=== PATIENT | male | born 1975 | race Caucasian/White ===

== ENCOUNTER 2020-07-04 08:22 | Outpatient (REF) | payer OTHER, SELFPAY ==
[2020-07-04 09:05] LABS: MANUAL DIFF FLAG NO
[2020-07-04 09:08] LABS: Basophils Absolute Auto 0.1 X10*3/uL (0.0-0.2); Basophils Percent Auto 0.8 % (0-2); Eosinophils Absolute Auto 0.3 X10*3/uL (0.0-0.4); Eosinophils Percent Auto 4.1 % (0-4); Hematocrit 46.3 % (42-52); Imm Gran Abs Auto 0.04 X10*3/uL (0.00-0.03); Imm Gran Pct Auto 0.5 % (0.0-0.4); Lymphocytes Absolute Auto 2.1 X10*3/uL (1.2-4.9); Lymphocytes Percent Auto 25.3 % (20-40); Mean Corpuscular HGB Conc 32.4 g/dl (31.0-36.0); Mean Corpuscular Hemoglobin 27.3 pg (27.0-33.0); Mean Corpuscular Volume 84.2 fL (80-98); Mean Platelet Volume 10.4 fL (9.4-12.4); Monocytes Absolute Auto 0.7 X10*3/uL (0.1-1.2); Monocytes Percent Auto 8.9 % (2-11); Neutrophils Absolute Auto 5.1 X10*3/uL (2.0-8.3); Neutrophils Percent Auto 60.4 % (45-73); Platelet Count 245 X10*3/uL (160-400); White Blood Count 8.4 X10*3/uL (4.8-10.8)
[2020-07-04 09:25] LABS: Estimated Average Glucose 100 mg/dL; Hemoglobin A1c % 5.1 %
[2020-07-04 10:08] LABS: Alanine Aminotransferase 64 U/L (0-40); Albumin Level 4.6 g/dL (3.5-5.0); Alkaline Phosphatase 244 U/L (39-117); Aspartate Amino Transferase 36 U/L (5-37); Bilirubin Direct 0.3 mg/dL (0.0-0.5); Bilirubin Total 0.6 mg/dL (0.0-1.0); Gamma Glutamyl Transpeptidase 993 U/L (11-51); Iron 51 mcg/dL (45-160); Lactate Dehydrogenase 184 U/L (118-273); Percent Iron Saturation 15 % (15-50); Total Iron Binding Capacity 339 mcg/dL (228-428); Total Protein 8.1 g/dL (6.5-8.0); Unsaturated Iron Binding 288 ug/dL
[2020-07-04 10:12] LABS: INTERNATIONAL NORM RATIO 3.3 (0.9-1.1); Prothrombin Time 39.6 SEC (10.8-13.0)
[2020-07-05 15:38] LABS: Mitochondrial Antibodies NEGATIVE (NEGATIVE)
[2020-07-09 15:25] LABS: Smooth Muscle Antibody <20
== END 2020-07-04 08:23 | disposition home or self-care (01) ==
LOC: HO.LAB 08:22
PROVIDERS: Internal Medicine Gastroenterology; PCP Internal Medicine; Visit Provider Internal Medicine
DX: R74.8 Abnormal levels of other serum enzymes (principal); D50.8 Other iron deficiency anemias; Z79.01 Long term (current) use of anticoagulants
CPT/HCPCS: 36415; 80076; 82550; 82977; 83036; 83540; 83615; 85025; 85610; 86255; 86256

== ENCOUNTER → 2020-07-09 13:59 | Outpatient (BNVA) | payer OTHER, SELFPAY | PROVIDERS: PCP Internal Medicine; Visit Provider Internal Medicine | DX: Z86.718 Personal history of other venous thrombosis and embolism (principal); Z51.81 Encounter for therapeutic drug level monitoring; Z79.01 Long term (current) use of anticoagulants | CPT/HCPCS: 85610 ==

== ENCOUNTER → 2020-07-15 14:09 | Outpatient (BNVA) | payer OTHER, SELFPAY | PROVIDERS: PCP Internal Medicine; Visit Provider Internal Medicine | DX: Z86.718 Personal history of other venous thrombosis and embolism (principal); Z51.81 Encounter for therapeutic drug level monitoring; Z79.01 Long term (current) use of anticoagulants | CPT/HCPCS: 85610 ==

== ENCOUNTER → 2020-07-23 08:10 | Outpatient (BNVA) | payer OTHER, SELFPAY | PROVIDERS: PCP Internal Medicine; Referring Provider Internal Medicine; Visit Provider Nurse Practitioner Family | DX: Z76.89 Persons encountering health services in other specified circumstances (principal) ==

== ENCOUNTER → 2020-07-29 14:03 | Outpatient (BNVA) | payer OTHER, SELFPAY | PROVIDERS: PCP Internal Medicine; Referring Provider Internal Medicine; Visit Provider Internal Medicine Gastroenterology | DX: K51.90 Ulcerative colitis, unspecified, without complications (principal); D50.9 Iron deficiency anemia, unspecified; K21.9 Gastro-esophageal reflux disease without esophagitis; Z86.718 Personal history of other venous thrombosis and embolism; Z79.01 Long term (current) use of anticoagulants; Z79.899 Other long term (current) drug therapy | CPT/HCPCS: 99212 ==

== ENCOUNTER → 2022-03-26 13:43 | Outpatient (BNV) | payer OTHER, SELFPAY | PROVIDERS: PCP Internal Medicine; Visit Provider Internal Medicine Medical Oncology | DX: Z86.718 Personal history of other venous thrombosis and embolism (principal); Z79.01 Long term (current) use of anticoagulants | CPT/HCPCS: 99213; 99214 ==

== ENCOUNTER 2023-04-06 14:36 | Outpatient (AMB) | payer OTHER, SELFPAY ==
[2023-04-06 14:39] VITALS: BP 112/78; PULSE 82; O2SAT 97; BMI 29.4
--- NOTE | 2023-04-06 14:39 | A.OFFPC_ITS ---
Vital Signs 04/06/23 14:39 Height 5 ft 8 in Weight 193 lb 8 oz BMI 29.4 BP 112/78 Blood Pressure Location Lt brachial Position Sitting Pulse 82 Pulse Source Pulse Oximeter Pulse Oximetry (%) 97 Oxygen Delivery Method Room Air Intake Visit Reasons: insomnia Grocery Manager Required: No Accompanied by: Self / Same As Patient Allergies azathioprine [From IMURAN] Allergy (Unknown, Verified 04/06/23 14:40) PANCREASE SWELLING infliximab [From REMICADE] Allergy (Unknown, Verified 04/06/23 14:40) DIFFICULTY BREATHING mannitol [Reclast] Allergy (Unknown, Verified 04/06/23 14:40) joint pain silver [From TEGADERM AG MESH] Allergy (Unknown, Verified 04/06/23 14:40) BLISTERS water for injection,sterile [Reclast] Allergy (Unknown, Verified 04/06/23 14:40) joint pain zoledronic acid [Reclast] Allergy (Unknown, Verified 04/06/23 14:40) joint pain Medication List - Last Reconciled 04/06/23 by Peyman Dunn MD acetaminophen (Tylenol Extra Strength) 500 mg PO Q6H PRN apixaban (Eliquis) 5 mg PO BID 90 days ascorbate calcium (vitamin C) 500 mg PO DAILY 90 days calcium citrate 250 mg PO DAILY cholecalciferol (vitamin D3) 50 mcg PO DAILY cyanocobalamin (vitamin B-12) 1,000 mcg PO DAILY 90 days ferrous sulfate (Feosol) 325 mg PO DAILY folic acid 1 mg PO DAILY omeprazole 20 mg PO DAILY 90 days propranolol 10 mg PO BID 90 days sertraline 50 mg PO DAILY 90 days tizanidine 4 mg PO BID PRN 90 days zolpidem ER (Ambien CR) 12.5 mg PO BEDTIME PRN Tobacco use date assessed: 04/06/23 Dental Screening Dental Screen Date: 04/06/23 Did you have a dental visit in the last 12 months?: Yes Did you have a dental problem in the last 6 months where you did not have access to dental care?: No Was dental information given to patient?: Patient has dentist HPI insomnia HPI Details 47-year-old overweight male with history of ulcer colitis GERD hypertension history of DVT and recurrent major depression coming in for follow- up. Last seen in October 2022.. Patient follows up with hematology oncology continuing with Seema. Blood work done February 2023. seeing NIRU sparrow. with loosing weight concern on BP and has been getting low BP today low - will d/c. living [place]. having problem with the glasses was in the eye and lasik and wants a second opinion [facility] Medical History Chronic pancreatitis Current use of anticoagulant therapy DVT (deep venous thrombosis) DVT (deep venous thrombosis) Enterocutaneous fistula Gastrointestinal fistula GERD (gastroesophageal reflux disease) History of deep vein thrombosis of lower extremity Hypertension Iron deficiency anemia Irritable bowel syndrome Myeloproliferative disorder Nystagmus, congenital Presence of inferior vena cava filter Small bowel perforation Ulcerative colitis Umbilical hernia Surgical History History of colon resection History of colostomy reversal History of ear surgery History of resection of terminal ileum History of ventral hernia repair Hx of colonoscopy Varicose veins of both lower extremities Family History Father No problems noted. Mother Osteoporosis Heart problem HTN (hypertension) Maternal Aunt Breast cancer Social History Household Members: None Housing: House Are you a primary medicare contact specialist to a significant other at home: No Do you presently have visiting nurse or other home services: Yes Alcohol intake: current Alcohol intake frequency: does not drink Patient Tobacco Use Status: Former Tobacco user e-Cigarette/Vaping Use: Never Used Second Hand Smoke Exposure: No service: No Current occupational status: disabled Cognitive needs: No Hearing needs: No Vision needs: Yes Questionnaire PHQ-9 Over the last 2 weeks, how often have you been bothered by any of the following problems? 1. Little interest or pleasure in doing things: several days 2. Feeling down, depressed, or hopeless: nearly every day 3. Trouble falling or staying asleep, or sleeping too much: nearly every day 4. Feeling tired or having little energy: more than half the days 5. Poor appetite or overeating: not at all 6. Feeling bad about yourself - or that you are a failure or have let yourself or your family down: several days 7. Trouble concentrating on things, such as reading the newspaper or watching television: nearly every day 8. Moving or speaking so slowly that other people could have noticed. Or the opposite - being so fidgety or restless that you have been moving around a lot more than usual: not at all 9. Thoughts that you would be better off or of hurting yourself in some way: not at all Total score: 13 Depression Screening Interpretation: Positive Source: Developed by Drs. Arturo Guerrero, Aubrie Burciaga, Nickolas Aeljo and colleagues, with an educational lacie from [employer]. Thrive Questionnaire Date Thrive assessed: 04/06/23 I am a: Patient What is your living situation today?: I have a steady place to live Within the past 12 months, did the food you bought not last and you didn't have the money to get more?: Never true Within the past 12 months, did you worry whether your food would run out before you got money to buy more?: Never true Do you have trouble paying for medicines?: No Do you have trouble getting transportation to medical appointments?: No Do you have trouble paying your heating and electricity bill?: No Do you have trouble taking care of your child, family member or friend?: No Do you have trouble with day-to-day activities such as bathing, preparing meals, shopping, managing finances, etc.?: No Are you currently unemployed and looking for a job?: No Are you interested in more education?: No Please select the resources that you would like help with: None Currently or been in a relationship where the following occur: no concerns reported AUDIT C Alcohol Use Questionnaire (AUDIT-C) 1. How often do you have a drink containing alcohol?: Never 3. How often do you have six or more drinks on one occasion?: Never Total Score: 0 HO-7 AMB Questionnaire HO-7 Date HO - 7 assessed: 04/06/23 Feeling nervous, anxious, or on edge: 2 = More than half the days Not being able to stop or control worryin = Nearly every day Worrying too much about different things: 1 = Several days Trouble relaxin = More than half the days Being so restless that it is hard to sit still: 1 = Several days Becoming easily annoyed or irritable: 0 = Not at all Feeling afraid as if something awful might happen: 0 = Not at all Total HO-7 score (0-4 normal; 5-9 mild; 10-14 moderate; 15-21 severe): 9 Source: Developed by Drs. Arturo Guerrero, Aubrie Burciaga, Nickolas Alejo and colleagues, with an educational lacie from [employer]. Physical exam (Primary Care) Vital Signs: Last Vital Signs Pulse 82 04/06/23 14:39 BP 112/78 04/06/23 14:39 Pulse Ox 97 04/06/23 14:39 Oxygen Delivery Method Room Air 04/06/23 14:39 BMI result Body Mass Index 29.4 Tobacco/Smoking Status: Tobacco use Status Tobacco use date assessed 04/06/23 04/06/23 14:45 Patient Tobacco Use Status Former Tobacco user 04/06/23 14:45 e-Cigarette/Vaping Use Never Used 04/06/23 14:45 PHQ-9: PHQ-9 Score PHQ-9: Total score 13 04/06/23 14:45 Depression Screening Interpretation: Positive Thrive Assessment: Date of Thrive Assessment Date Thrive assessed 04/06/23 04/06/23 14:45 Currently or been in a relationship where the following occur: no concerns reported Const General: alert; No acute distress Eyes Conjunctivae: conjunctivae normal Resp Auscultation: clear to auscultation bilaterally Cardio Rate: regular rate Rhythm: regular rhythm GI Inspection: Yes normal to inspection Extrem General: Yes normal to inspection and No edema Assessment and Plan Assessment & Plan (1) History of deep vein thrombosis of lower extremity: Comment: IVF filter Code(s): Z86.718 - Personal history of other venous thrombosis and embolism Plan: Patient follows up with hematology oncology and continuing with anticoagulation with Eliquis (2) Hypertension: Code(s): I10 - Essential (primary) hypertension Plan: Continue with blood pressure medication. Decrease salt intake and exercise because the blood pressure has been low will stop the diltiazem and monitor blood pressure (3) GERD (gastroesophageal reflux disease): Code(s): K21.9 - Gastro-esophageal reflux disease without esophagitis Plan: Avoid the foods that causes that usually spicy foods, tomato products, juices, coffee, soda and foods that your sensitive to. After eating do not lie down, allow 3-4 hours before in lie down. And keep the head of bed above 30 degrees to avoid the acid from going up. Continue with omeprazole 20 mg once a day (4) Iron deficiency anemia: Code(s): D50.9 - Iron deficiency anemia, unspecified Plan: Continue with folic acid iron vitamin-C (5) Ulcerative colitis: Comment: Colectomy 08/05/2010 with reversal colostomy November 2010, fistula was abscess drain September 2019, explore lap with colectomy and takedown of the enterocutaneous fistula October 2019 infection and abscess and drained. Since then has had abscess formation requiring CT drainage and recurrent small-bowel o bstruction. Had admission for acute kidney injury and hypernatremia due to hypovolemia having NG tube decompression. August 14 exploratory laparotomy extensively lysis of adhesions and found perforation in the ileum. 80 cm of ileum was resected. Had septic shock and multiple take backs to the operating room for anastomotic breakdown with leaks, waxing and waning blood pressure requirements patient had ileostomy with ventral abdominal closure with mesh. September 15 CT scan showed large fluid collection with lactic acidosis OR for explore laparotomy mesh explantation abdominal washout, drain placement and packing for perforated viscus. September 2021 exploratory laparotomy with lysis of adhesions repair of enterocutaneous fistula ileostomy takedown, hand-sewn anastomosis, diverting loop ileostomy pouch us copy temporary hernia repair with mesh. January 23 ileostomy closure Code(s): K51.90 - Ulcerative colitis, unspecified, without complications Qualifiers: Ulcerative colitis location: ulcerative pancolitis Digestive disease complication type: with fistula Qualified Code(s): K51.013 - Ulcerative (chronic) pancolitis with fistula Plan: Continue to follow-up with gastroenterology. (6) Recurrent major depression: Comment: Living [facility] Code(s): F33.9 - Major depressive disorder, recurrent, unspecified (7) Vision changes: Code(s): H53.9 - Unspecified visual disturbance Plan: Referral to Ophthalmology (8) Ingrown toenail of left foot: Code(s): L60.0 - Ingrowing nail Plan: Referral to podiatry Orders: Orders Vitamin B12 and Folate Today D50.9 - Iron deficiency anemia, unspecified Comprehensive Met. Panel Today I10 - Essential (primary) hypertension Ferritin Today D50.9 - Iron deficiency anemia, unspecified IRON PROFILE Today D50.9 - Iron deficiency anemia, unspecified Lipid Panel Today E78.00 - Pure hypercholesterolemia, unspecified, I10 - Essential (primary) hypertension Free T4 (Free Thyroxine) Today I10 - Essential (primary) hypertension Thyroid Stimulating Hormone Today I10 - Essential (primary) hypertension Complete Blood Count Auto Diff Today D50.9 - Iron deficiency anemia, unspecified Reticulocyte Count Today D50.9 - Iron deficiency anemia, unspecified Referrals Ophthalmology Referral H53.9 - Unspecified visual disturbance Podiatry Referral L60.0 - Ingrowing nail Medications: Changed From sertraline 50 mg PO DAILY 90 days 90 tabs 2RF F33.9 - Major depressive disorder, recurrent, unspecified To sertraline 100 mg PO DAILY 90 tabs 2RF 90 days F33.9 - Major depressive disorder, recurrent, unspecified Discontinued diltiazem HCl ER (DILT-XR) Discontinued Reason: Ancillary Entered New Order 120 mg PO DAILY 90 days 90 caps 0RF Coding Level of Care Code Est Pt Level 4 (62897) Diagnoses History of deep vein thrombosis of lower extremity Z86.718 Hypertension I10 GERD (gastroesophageal reflux disease) K21.9 Iron deficiency anemia D50.9 Ulcerative colitis K51.013 Ulcerative colitis location: ulcerative pancolitis Digestive disease complication type: with fistula Recurrent major depression F33.9 Vision changes H53.9 Ingrown toenail of left foot L60.0
== END 2023-04-06 15:12 | disposition home or self-care (01) ==
PROVIDERS: Visit Provider Internal Medicine
DX: I10 Essential (primary) hypertension (principal); Z86.718 Personal history of other venous thrombosis and embolism; K21.9 Gastro-esophageal reflux disease without esophagitis; K51.013 Ulcerative (chronic) pancolitis with fistula; F33.9 Major depressive disorder, recurrent, unspecified; D50.9 Iron deficiency anemia, unspecified; H53.9 Unspecified visual disturbance; L60.0 Ingrowing nail
CPT/HCPCS: 99214

== ENCOUNTER 2023-04-27 12:06 | Outpatient (REF) | payer OTHER, SELFPAY ==
[2023-04-27 12:17] LABS: MANUAL DIFF FLAG NO
[2023-04-27 12:44] LABS: Basophils Absolute Auto 0.1 X10*3/uL (0.0-0.2); Eosinophils Absolute Auto 0.3 X10*3/uL (0.0-0.4); Eosinophils Percent Auto 4.5 % (0-4); Hematocrit 49.7 % (42.0-52.0); Hemoglobin 16.5 g/dl (14.0-18.0); Imm Gran Abs Auto 0.02 X10*3/uL (0.00-0.03); Imm Gran Pct Auto 0.3 % (0.0-0.4); Lymphocytes Absolute Auto 2.5 X10*3/uL (1.2-4.9); Lymphocytes Percent Auto 34.5 % (20-40); Mean Corpuscular HGB Conc 33.2 g/dl (31.0-36.0); Mean Corpuscular Hemoglobin 31.5 pg (27.0-33.0); Mean Platelet Volume 10.9 fL (9.4-12.4); Monocytes Absolute Auto 0.5 X10*3/uL (0.1-1.2); Monocytes Percent Auto 7.4 % (2-11); Neutrophils Absolute Auto 3.7 x10*3/uL (2.0-8.3); Neutrophils Percent Auto 52.3 % (45-73); Platelet Count 239 X10*3/uL (160-400); Red Blood Count 5.23 X10*6/uL (4.60-5.80); Red Cell Distribution Width 13.2 % (11.0-16.0); Reticulocyte Percent 1.8 % (0.5-1.8); Reticulocytes Absolute 0.092 X10*6/uL (0.026-0.095); White Blood Count 7.2 X10*3/uL (4.8-10.8)
[2023-04-27 13:58] LABS: Alanine Aminotransferase 92 U/L (0-40); Albumin Level 4.2 g/dL (3.5-5.0); Alkaline Phosphatase 430 U/L (39-117); Anion Gap 14 (12-20); Aspartate Amino Transferase 72 U/L (5-37); Bilirubin Total 1.8 mg/dL (0.0-1.0); Blood Urea Nitrogen 10 mg/dL (9-16); Calcium 9.6 mg/dL (8.4-10.2); Carbon Dioxide 25 mmol/L (22-29); Chloride 106 mmol/L (96-108); Cholesterol 254 mg/dL; Estimated Glomerular Filt Rate > 60; Glucose Random 82 mg/dL (60-115); HDL Cholesterol 62 mg/dL; Iron 109 mcg/dL (45-160); LDL Cholesterol Calculated 156 mg/dl; Percent Iron Saturation 36 % (15-50); Potassium 3.8 mmol/L (3.3-5.1); Sodium 141 mmol/L (135-145); Total Iron Binding Capacity 303 mcg/dL (228-428); Total Protein 8.4 g/dL (6.5-8.0); Triglycerides 184 mg/dL; Unsaturated Iron Binding 194 ug/dL
[2023-04-27 14:16] LABS: Ferritin 209 ng/mL (20-250); Thyroid Stimulating Hormone 0.77 uIU/mL (0.32-4.0)
[2023-04-27 14:19] LABS: Folate 17.5 ng/mL (> or = 4.0); Vitamin B12 1523 pg/mL (200-900)
== END 2023-04-27 12:07 | disposition home or self-care (01) ==
LOC: HO.LAB 12:06
PROVIDERS: PCP Internal Medicine; Visit Provider Internal Medicine
DX: D50.9 Iron deficiency anemia, unspecified (principal); I10 Essential (primary) hypertension; E78.00 Pure hypercholesterolemia, unspecified
CPT/HCPCS: 36415; 80053; 80061; 82607; 82728; 82746; 83540; 84439; 84443; 85025; 85045

== ENCOUNTER 2023-07-20 13:54 | Outpatient (AMB) | payer OTHER, SELFPAY ==
[2023-07-20 13:56] VITALS: BP 110/80; PULSE 66; O2SAT 98; BMI 29.0
--- NOTE | 2023-07-20 13:56 | MHC.PC.OV ---
Vital Signs 07/20/23 13:56 Height 5 ft 8 in Weight 191 lb 0.2 oz BMI 29.0 BP 110/80 Blood Pressure Location Lt brachial Position Sitting Pulse 66 Pulse Source Pulse Oximeter Pulse Oximetry (%) 98 Oxygen Delivery Method Room Air Intake Visit Reasons: 3 month f/u Intake Note: Patient is here to follow up Riffler Tender Required: No Allergies azathioprine [From IMURAN] Allergy (Unknown, Verified 07/20/23 13:57) PANCREASE SWELLING infliximab [From REMICADE] Allergy (Unknown, Verified 07/20/23 13:57) DIFFICULTY BREATHING mannitol [Reclast] Allergy (Unknown, Verified 07/20/23 13:57) joint pain silver [From TEGADERM AG MESH] Allergy (Unknown, Verified 07/20/23 13:57) BLISTERS water for injection,sterile [Reclast] Allergy (Unknown, Verified 07/20/23 13:57) joint pain zoledronic acid [Reclast] Allergy (Unknown, Verified 07/20/23 13:57) joint pain Medication List - Last Reconciled 07/20/23 by Peyman Dunn MD acetaminophen (Tylenol Extra Strength) 500 mg PO Q6H PRN apixaban (Eliquis) 5 mg PO BID 90 days ascorbate calcium (vitamin C) 500 mg PO DAILY 90 days calcium citrate 250 mg PO DAILY cholecalciferol (vitamin D3) 50 mcg PO DAILY cholecalciferol (vitamin D3) 50 mcg PO DAILY 90 days cyanocobalamin (vitamin B-12) 1,000 mcg PO DAILY 90 days ferrous sulfate (Feosol) 325 mg PO DAILY folic acid 1 mg PO DAILY omeprazole 20 mg PO DAILY 90 days propranolol 10 mg PO BID 90 days sertraline 100 mg PO DAILY 90 days tizanidine 4 mg PO BID PRN 90 days zolpidem ER (Ambien CR) 12.5 mg PO BEDTIME PRN zolpidem ER (Ambien CR) 12.5 mg PO BEDTIME PRN Tobacco use date assessed: 07/20/23 Dental Screening Dental Screen Date: 07/20/23 Did you have a dental visit in the last 12 months?: Yes Did you have a dental problem in the last 6 months where you did not have access to dental care?: No Was dental information given to patient?: Patient has dentist HPI 3 month f/u HPI Details 47-year-old overweight male with a history of DVT on anticoagulation hypertension GERD iron deficiency anemia history of ulcerative colitis recurrent depression coming in for follow-up. Last seen in March 2023. [facility] Medical History Chronic pancreatitis Current use of anticoagulant therapy DVT (deep venous thrombosis) DVT (deep venous thrombosis) Enterocutaneous fistula Gastrointestinal fistula GERD (gastroesophageal reflux disease) History of deep vein thrombosis of lower extremity Hypertension Iron deficiency anemia Irritable bowel syndrome Myeloproliferative disorder Nystagmus, congenital Presence of inferior vena cava filter Small bowel perforation Ulcerative colitis Umbilical hernia Surgical History History of colon resection History of colostomy reversal History of ear surgery History of resection of terminal ileum History of ventral hernia repair Hx of colonoscopy Varicose veins of both lower extremities Family History Father No problems noted. Mother Osteoporosis Heart problem HTN (hypertension) Maternal Aunt Breast cancer Social History Household Members: None Housing: House Are you a primary rn primary care to a significant other at home: No Do you presently have visiting nurse or other home services: Yes Alcohol intake: current Alcohol intake frequency: does not drink Patient Tobacco Use Status: Former Tobacco user e-Cigarette/Vaping Use: Never Used Second Hand Smoke Exposure: No service: No Current occupational status: disabled Cognitive needs: No Hearing needs: No Vision needs: Yes Questionnaire Thrive Questionnaire Date Thrive assessed: 04/06/23 AUDIT C Alcohol Use Questionnaire (AUDIT-C) 1. How often do you have a drink containing alcohol?: Never 3. How often do you have six or more drinks on one occasion?: Never Total Score: 0 HO-7 AMB Questionnaire HO-7 Date HO - 7 assessed: 04/06/23 Source: Developed by Drs. Arturo Guerrero, Aubrie Burciaga, Nickolas Alejo and colleagues, with an educational lacie from [employer]. Physical exam (Primary Care) Vital Signs: Last Vital Signs Pulse 66 07/20/23 13:56 BP 110/80 07/20/23 13:56 Pulse Ox 98 07/20/23 13:56 Oxygen Delivery Method Room Air 07/20/23 13:56 BMI result Body Mass Index 29.0 Tobacco/Smoking Status: Tobacco use Status Tobacco use date assessed 07/20/23 07/20/23 13:57 Patient Tobacco Use Status Former Tobacco user 07/20/23 13:57 e-Cigarette/Vaping Use Never Used 07/20/23 13:57 Thrive Assessment: Date of Thrive Assessment Date Thrive assessed 04/06/23 07/20/23 13:57 Const General: alert; No acute distress Eyes Conjunctivae: conjunctivae normal Resp Auscultation: clear to auscultation bilaterally Cardio Rate: regular rate Rhythm: regular rhythm GI Inspection: Yes normal to inspection Extrem General: Yes normal to inspection and No edema Office Procedures Flu Questionnaire Does the patient have a severe egg allergy?: No Does the patient have severe life threatening allergies?: No Does the patient have a fever or illness today?: No Has the patient ever had Guillain-[place] Syndrome?: No Has the patient ever had any past reaction to a flu shot?: No Immunizations flu vacc [id number] 6mos up(PF) 60 mcg(15 mcgx4)/0.5 mL IM syringe Performing Provider: Peyman Dunn MD Performing Location: [facility] Administered by: NABEEL Watters on 07/20/23 14:19 Dose Route Admin Location Dispensed Lot Number Expiration Date NDC [employer] 0.5 mL IM Left Deltoid 0.5 mL [id number] 03/26/23 [id number] [employer] VIS Given Date VIS Provided VIS Publication Date 07/20/23 Single Vaccine 21 Eligibility Eligibility Date Funding Source Not [facility] Eligible 07/20/23 Private Assessment and Plan Assessment & Plan (1) History of deep vein thrombosis of lower extremity: Comment: IVF filter Code(s): Z86.718 - Personal history of other venous thrombosis and embolism Plan: Continue with anticoagulation with Eliquis 5 mg twice a day (2) Hypertension: Code(s): I10 - Essential (primary) hypertension Plan: Continue with blood pressure medication. Decrease salt intake and exercise patient is taking propranolol 10 mg twice a day (3) GERD (gastroesophageal reflux disease): Code(s): K21.9 - Gastro-esophageal reflux disease without esophagitis Plan: Avoid the foods that causes that usually spicy foods, tomato products, juices, coffee, soda and foods that your sensitive to. After eating do not lie down, allow 3-4 hours before in lie down. And keep the head of bed above 30 degrees to avoid the acid from going up. On omeprazole 20 mg once a day (4) Ulcerative colitis: Comment: Colectomy 08/05/2010 with reversal colostomy November 2010, fistula was abscess drain September 2019, explore lap with colectomy and takedown of the enterocutaneous fistula October 2019 infection and abscess and drained. Since then has had abscess formation requiring CT drainage and recurrent small-bowel obstruction. Had admission for acute kidney injury and hypernatremia due to hypovolemia having NG tube decompression. August 14 exploratory laparotomy extensively lysis of adhesions and found perforation in the ileum. 80 cm of ileum was resected. Had septic shock and multiple take backs to the operating room for anastomotic breakdown with leaks, waxing and waning blood pressure requirements patient had ileostomy with ventral abdominal closure with mesh. September 15 CT scan showed large fluid collection with lactic acidosis OR for explore laparotomy mesh explantation abdominal washout, drain placement and packing for perforated viscus. September 2021 exploratory laparotomy with lysis of adhesions repair of enterocutaneous fistula ileostomy takedown, hand-sewn anastomosis, diverting loop ileostomy pouch us copy temporary hernia repair with mesh. January 23 ileostomy closure Code(s): K51.90 - Ulcerative colitis, unspecified, without complications Qualifiers: Ulcerative colitis location: ulcerative pancolitis Digestive disease complication type: with fistula Qualified Code(s): K51.013 - Ulcerative (chronic) pancolitis with fistula Plan: Continue to follow-up with gastroenterology (5) Recurrent major depression: Comment: [facility] Code(s): F33.9 - Major depressive disorder, recurrent, unspecified Plan: Continue with sertraline and counseling (6) Hypercholesterolemia: Code(s): E78.00 - Pure hypercholesterolemia, unspecified Plan: retesting to do after dietary changes Orders: Orders Influenza [id number] Immunization Today Z23 - Encounter for immunization Lipid Panel 3 Months E78.00 - Pure hypercholesterolemia, unspecified Comprehensive Met. Panel 3 Months E78.00 - Pure hypercholesterolemia, unspecified Medications: New cholecalciferol (vitamin D3) 50 mcg PO DAILY 90 days 90 caps 3RF E55.9 - Vitamin D deficiency, unspecified, E78.00 - Pure hypercholesterolemia, unspecified Refilled zolpidem ER (Ambien CR) 12.5 mg PO BEDTIME PRN 90 tabs 1RF sleep G47.00 - Insomnia, unspecified apixaban (Eliquis) 5 mg PO BID 90 days 180 tabs 3RF E78.00 - Pure hypercholesterolemia, unspecified Coding Level of Care Code Est Pt Level 4 (67854) Diagnoses History of deep vein thrombosis of lower extremity Z86.718 Hypertension I10 GERD (gastroesophageal reflux disease) K21.9 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 Ulcerative colitis location: ulcerative pancolitis Digestive disease complication type: with fistula Recurrent major depression F33.9 Hypercholesterolemia E78.00
== END 2023-07-20 14:38 | disposition home or self-care (01) ==
PROVIDERS: PCP Internal Medicine; Visit Provider Internal Medicine
DX: I10 Essential (primary) hypertension (principal); K51.013 Ulcerative (chronic) pancolitis with fistula; F33.9 Major depressive disorder, recurrent, unspecified; Z86.718 Personal history of other venous thrombosis and embolism; Z23 Encounter for immunization; K21.9 Gastro-esophageal reflux disease without esophagitis; E78.00 Pure hypercholesterolemia, unspecified
CPT/HCPCS: 90471; 90686; 99214

== ENCOUNTER 2023-10-15 07:37 | Outpatient (REF) | payer OTHER, SELFPAY ==
--- NOTE | ~2023-10-15 | US_ITS ---
EXAMINATION: US ABDOMEN COMPLETE CLINICAL INFORMATION: Elevated LFTs. COMPARISON: Ultrasound abdomen complete 05/08/2020 and 12/15/2017. X-ray abdomen 04/24/2020. X-ray KUB 03/09/2017. TECHNIQUE: Real-time imaging of the abdominal viscera. Limited visualization due to bowel gas. FINDINGS: PANCREAS: Limited visualization of pancreatic tail and head. Imaged portion of pancreatic body is unremarkable. ABDOMINAL AORTA: Limited visualization of [id number] abdominal aorta. Unremarkable distal abdominal aorta. INFERIOR VENA CAVA: Imaged portions are unremarkable. LIVER: There are large areas of hepatic parenchyma which are relatively hyperechoic juxtaposed with large hypoechoic area within the right hepatic lobe, characteristic of hepatocellular disease/hepatic steatosis with areas of possible focal sparing. Limited visualization. Previous ultrasound of 05/08/2020 described diffuse increased parenchymal echogenicity characteristic of hepatic steatosis with large area of focal sparing in the right lower hepatic lobe. CT abdomen pelvis of 10/16/2013 described hepatic steatosis. GALLBLADDER: No gallstones. No gallbladder wall thickening. COMMON BILE DUCT: Normal in caliber measuring 0.5 cm in diameter. RIGHT KIDNEY: No hydronephrosis. No renal calculi. Limited visualization. The kidney measures 10.9 cm in maximum dimension. LEFT KIDNEY: No hydronephrosis. No renal calculi. Limited visualization. The kidney measures 11.2 cm in maximum dimension. SPLEEN: Splenomegaly. The spleen measures 12.7 cm in maximum dimension. FREE FLUID: None. US/US abdomen complete IMPRESSION: 1. The hepatic parenchyma is relatively hyperechoic with substantial hypoechoic areas including dominant right hepatic hypoechoic area, characteristic of hepatocellular disease/hepatic steatosis with area of possible focal sparing. Previous ultrasound of 05/08/2014 described diffuse increased parenchymal echogenicity characteristic of hepatic steatosis with large area of focal sparing in the right hepatic lobe. CT abdomen pelvis of 10/16/2013 described hepatic steatosis. Limited visualization. MRI employing hepatic mass protocol should be considered for further evaluation. 2. Splenomegaly, 12.7 cm.
== END 2023-10-15 07:38 | disposition home or self-care (01) ==
LOC: HO.US 07:37
PROVIDERS: PCP Internal Medicine; Visit Provider Internal Medicine Medical Oncology
DX: R79.89 Other specified abnormal findings of blood chemistry (principal)
CPT/HCPCS: 76700

== ENCOUNTER 2023-11-01 10:50 | Outpatient (AMB) | payer OTHER, SELFPAY ==
--- NOTE | 2023-11-01 11:01 | MHC.PC.OV ---
Vital Signs 11/01/23 11:04 Height 5 ft 8 in Weight 182 lb BMI 27.7 BP 118/72 Blood Pressure Location Lt brachial Position Sitting Pulse 70 Pulse Source Pulse Oximeter Pulse Oximetry (%) 98 Oxygen Delivery Method Room Air Intake Visit Reasons: 3 month f/u Allergies azathioprine [From IMURAN] Allergy (Unknown, Verified 11/01/23 11:09) PANCREASE SWELLING infliximab [From REMICADE] Allergy (Unknown, Verified 11/01/23 11:09) DIFFICULTY BREATHING mannitol [Reclast] Allergy (Unknown, Verified 11/01/23 11:09) joint pain silver [From TEGADERM AG MESH] Allergy (Unknown, Verified 11/01/23 11:09) BLISTERS water for injection,sterile [Reclast] Allergy (Unknown, Verified 11/01/23 11:09) joint pain zoledronic acid [Reclast] Allergy (Unknown, Verified 11/01/23 11:09) joint pain Tobacco use date assessed: 11/01/23 Dental Screening Dental Screen Date: 11/01/23 Did you have a dental visit in the last 12 months?: Yes Did you have a dental problem in the last 6 months where you did not have access to dental care?: No Was dental information given to patient?: Patient has dentist HPI 3 month f/u HPI Details 48-year-old overweight male with a history of hypertension GERD ulcerative colitis recurrent major depression hypercholesterolemia and history of DVT coming in for follow-up. Last seen in June 2023. Review of the notes seen by Dr. Price for the ulcerative colitis history of ileal pouch surgery more than 10 years ago pouch rectal anastomosis with a cough developed incisional hernia underwent repair history of DVT has IVC filter left common iliac vein stent had small-bowel obstruction July 2020 with perforation multiple surgeries has chronic enterocutaneous fistula was on TPN was supposed to have another surgery but due to COVID was postponed. September 2021 underwent explore lap extensive lysis repair of to fistulous enterocutaneous take down of ileostomy diverting loop ileostomy pouch endoscopy hernia repair. December 2021 underwent flexible endoscopy with closure of loop ileostomy. Patient also had a recent ultrasound of the abdomen showing hepatic steatosis with splenomegaly.. Blood work done in September 2023. 2 week low back pain, deny fall no radiation no leg pain. muffles hearing sees Dr. Alcocer does have a myringotomy L ear [facility] Medical History Chronic pancreatitis Current use of anticoagulant therapy DVT (deep venous thrombosis) DVT (deep venous thrombosis) Enterocutaneous fistula Gastrointestinal fistula GERD (gastroesophageal reflux disease) History of deep vein thrombosis of lower extremity Hypertension Iron deficiency anemia Irritable bowel syndrome Myeloproliferative disorder Nystagmus, congenital Presence of inferior vena cava filter Small bowel perforation Ulcerative colitis Umbilical hernia Surgical History History of colon resection History of colostomy reversal History of ear surgery History of resection of terminal ileum History of ventral hernia repair Hx of colonoscopy Varicose veins of both lower extremities Family History (Updated 11/01/23 @ 11:10 by Nikia Batres [facility]) Father No problems noted. Mother Osteoporosis Heart problem HTN (hypertension) Maternal Aunt Breast cancer Social History Household Members: None Housing: House Are you a primary toddler caregiver to a significant other at home: No Do you presently have visiting nurse or other home services: Yes Alcohol intake: current Alcohol intake frequency: does not drink Patient Tobacco Use Status: Former Tobacco user Tobacco use type: Cigarette e-Cigarette/Vaping Use: Never Used Second Hand Smoke Exposure: No service: No Current occupational status: disabled Cognitive needs: No Hearing needs: No Vision needs: Yes Questionnaire PHQ-9 Over the last 2 weeks, how often have you been bothered by any of the following problems? 1. Little interest or pleasure in doing things: several days 2. Feeling down, depressed, or hopeless: nearly every day 3. Trouble falling or staying asleep, or sleeping too much: nearly every day 4. Feeling tired or having little energy: more than half the days 5. Poor appetite or overeating: not at all 6. Feeling bad about yourself - or that you are a failure or have let yourself or your family down: several days 7. Trouble concentrating on things, such as reading the newspaper or watching television: nearly every day 8. Moving or speaking so slowly that other people could have noticed. Or the opposite - being so fidgety or restless that you have been moving around a lot more than usual: not at all 9. Thoughts that you would be better off or of hurting yourself in some way: not at all Total score: 13 Depression Screening Interpretation: Positive Depression Screening Done: Yes Source: Developed by Drs. Arturo Guerrero, Nickolas Pichardo and colleagues, with an educational lacie from [email or web address] Thrive Questionnaire Date Thrive assessed: 11/01/23 I am a: Patient What is your living situation today?: I have a steady place to live Within the past 12 months, did the food you bought not last and you didn't have the money to get more?: Never true Within the past 12 months, did you worry whether your food would run out before you got money to buy more?: Never true Do you have trouble paying for medicines?: No Do you have trouble getting transportation to medical appointments?: No Do you have trouble paying your heating and electricity bill?: No Do you have trouble taking care of your child, family member or friend?: No Do you have trouble with day-to-day activities such as bathing, preparing meals, shopping, managing finances, etc.?: No Are you currently unemployed and looking for a job?: No Are you interested in more education?: No Currently or been in a relationship where the following occur: no concerns reported THRIVE Score: 0 AUDIT C Alcohol Use Questionnaire (AUDIT-C) 1. How often do you have a drink containing alcohol?: Never 3. How often do you have six or more drinks on one occasion?: Never Total Score: 0 HO-7 AMB Questionnaire HO-7 Date HO - 7 assessed: 11/01/23 Feeling nervous, anxious, or on edge: 0 = Not at all Not being able to stop or control worryin = Not at all Worrying too much about different things: 0 = Not at all Trouble relaxin = Not at all Being so restless that it is hard to sit still: 0 = Not at all Becoming easily annoyed or irritable: 0 = Not at all Feeling afraid as if something awful might happen: 0 = Not at all Total HO-7 score (0-4 normal; 5-9 mild; 10-14 moderate; 15-21 severe): 0 Source: Developed by Aubrie Ratliff Kurt Kroenke and colleagues, with an educational lacie from [email or web address].. Physical exam (Primary Care) Vital Signs: Last Vital Signs Pulse 70 11/01/23 11:04 BP 118/72 11/01/23 11:04 Pulse Ox 98 11/01/23 11:04 Oxygen Delivery Method Room Air 11/01/23 11:04 BMI result Body Mass Index 27.7 Tobacco/Smoking Status: Tobacco use Status Tobacco use date assessed 11/01/23 11/01/23 11:11 Patient Tobacco Use Status Former Tobacco user 11/01/23 11:01 Tobacco use type Cigarette 11/01/23 11:11 e-Cigarette/Vaping Use Never Used 11/01/23 11:01 PHQ-9: PHQ-9 Score PHQ-9: Total score 13 11/01/23 11:22 Depression Screening Interpretation: Positive Thrive Assessment: Date of Thrive Assessment Date Thrive assessed 11/01/23 11/01/23 11:11 Currently or been in a relationship where the following occur: no concerns reported Const Other: myringotomy tube L ear General: alert; No acute distress Eyes Conjunctivae: conjunctivae normal Resp Auscultation: clear to auscultation bilaterally Cardio Rate: regular rate Rhythm: regular rhythm GI Inspection: Yes normal to inspection Extrem General: Yes normal to inspection and No edema Assessment and Plan Assessment & Plan (1) Ulcerative colitis: Comment: Colectomy 08/05/2010 with reversal colostomy November 2010, fistula was abscess drain September 2019, explore lap with colectomy and takedown of the enterocutaneous fistula October 2019 infection and abscess and drained. Since then has had abscess formation requiring CT drainage and recurrent small-bowel obstruction. Had admission for acute kidney injury and hypernatremia due to hypovolemia having NG tube decompression. August 14 exploratory laparotomy extensively lysis of adhesions and found perforation in the ileum. 80 cm of ileum was resected. Had septic shock and multiple take backs to the operating room for anastomotic breakdown with leaks, waxing and waning blood pressure requirements patient had ileostomy with ventral abdominal closure with mesh. September 15 CT scan showed large fluid collection with lactic acidosis OR for explore laparotomy mesh explantation abdominal washout, drain placement and packing for perforated viscus. September 2021 exploratory laparotomy with lysis of adhesions repair of enterocutaneous fistula ileostomy takedown, hand-sewn anastomosis, diverting loop ileostomy pouch us copy temporary hernia repair with mesh. January 23 ileostomy closure Code(s): K51.90 - Ulcerative colitis, unspecified, without complications Qualifiers: Ulcerative colitis location: ulcerative pancolitis Digestive disease complication type: with fistula Qualified Code(s): K51.013 - Ulcerative (chronic) pancolitis with fistula Plan: Continues to follow-up with Gastroenterology. (2) History of deep vein thrombosis of lower extremity: Comment: IVF filter Code(s): Z86.718 - Personal history of other venous thrombosis and embolism Plan: Continue with anticoagulation follows up with Hematology-Oncology (3) Hypertension: Code(s): I10 - Essential (primary) hypertension Plan: Continue with blood pressure medication. Decrease salt intake and exercise on propranolol 10 mg twice a day (4) GERD (gastroesophageal reflux disease): Code(s): K21.9 - Gastro-esophageal reflux disease without esophagitis Plan: Avoid the foods that causes that usually spicy foods, tomato products, juices, coffee, soda and foods that your sensitive to. After eating do not lie down, allow 3-4 hours before in lie down. And keep the head of bed above 30 degrees to avoid the acid from going up. (5) Recurrent major depression: Comment: [facility] Code(s): F33.9 - Major depressive disorder, recurrent, unspecified Plan: Continue with counseling (6) Hypercholesterolemia: Code(s): E78.00 - Pure hypercholesterolemia, unspecified Plan: Avoid fried foods, chicken skin, eggs, butter margarine, pastries and meat. Be it pork or beef they have a lot of cholesterol (7) Hepatic steatosis: Code(s): K76.0 - Fatty (change of) liver, not elsewhere classified (8) Essential tremor: Code(s): G25.0 - Essential tremor (9) Low back pain: Code(s): M54.50 - Low back pain, unspecified (10) Hearing difficulty of both ears: Code(s): H91.93 - Unspecified hearing loss, bilateral Plan: seeing Stanley Akins ear myringotomy tube Orders: Orders XR lumbar spine 2-3V Today M54.50 - Low back pain, unspecified Referrals Gastroenterology Referral K51.90 - Ulcerative colitis, unspecified, without complications, K76.0 - Fatty (change of) liver, not elsewhere classified Medications: Changed From propranolol 10 mg PO BID 90 days 180 tabs 0RF G25.0 - Essential tremor To propranolol 20 mg PO BID 90 days 180 tabs 1RF G25.0 - Essential tremor Coding Level of Care Code Est Pt Level 4 (40572) Diagnoses 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 Ulcerative colitis location: ulcerative pancolitis Digestive disease complication type: with fistula History of deep vein thrombosis of lower extremity Z86.718 Hypertension I10 GERD (gastroesophageal reflux disease) K21.9 Recurrent major depression F33.9 Hypercholesterolemia E78.00 Hepatic steatosis K76.0 Essential tremor G25.0 Low back pain M54.50 Hearing difficulty of both ears H91.93
[2023-11-01 11:04] VITALS: BP 118/72; PULSE 70; O2SAT 98; BMI 27.7
== END 2023-11-01 12:19 | disposition home or self-care (01) ==
PROVIDERS: PCP Internal Medicine; Visit Provider Internal Medicine
DX: K51.013 Ulcerative (chronic) pancolitis with fistula (principal); F33.9 Major depressive disorder, recurrent, unspecified; Z86.718 Personal history of other venous thrombosis and embolism; I10 Essential (primary) hypertension; K21.9 Gastro-esophageal reflux disease without esophagitis; E78.00 Pure hypercholesterolemia, unspecified; K76.0 Fatty (change of) liver, not elsewhere classified; G25.0 Essential tremor; M54.50 Low back pain, unspecified; H91.93 Unspecified hearing loss, bilateral
CPT/HCPCS: 99214

== ENCOUNTER 2023-11-08 15:20 | Outpatient (REF) | payer OTHER, SELFPAY ==
--- NOTE | ~2023-11-08 | XR_ITS ---
EXAMINATION: XR LUMBOSACRAL SPINE CLINICAL INFORMATION: Lumbar spine 10/30/2015 COMPARISON: None available. TECHNIQUE: Three views of the lumbosacral spine. FINDINGS: There 5 nonrib-bearing lumbar-type vertebral bodies. Osseous mineralization is normal. The alignment is maintained. Mild superior endplate depressions of T12 and L1 are stable findings. The intervertebral disc spaces are well preserved. Mild facet arthropathy at L5-S1. 2 IVC filters are noted in the course of the IVC, one with the superior tip at the superior aspect of L3 and another with the superior tip at the superior aspect of T12, previously at the superior aspect of T11. A left common iliac artery stent graft is again identified. Postsurgical changes of the ventral wall hernia repair are again noted. The visualized sacral iliac joints are unremarkable. XR/XR lumbar spine 2-3V IMPRESSION: 1. No significant change in mild T12 and L1 superior endplate depressions. 2. Mild facet arthropathy at L5-S1. No significant interval change since 10/29/2015
== END 2023-11-08 15:21 | disposition home or self-care (01) ==
LOC: HO.XRAY 15:20
PROVIDERS: PCP Internal Medicine; Visit Provider Internal Medicine
DX: M54.50 Low back pain, unspecified (principal)
CPT/HCPCS: 72100

== ENCOUNTER 2023-12-27 13:41 | Outpatient (AMB) | payer OTHER, SELFPAY ==
--- NOTE | 2023-12-27 13:44 | A.OFFVIS_ITS ---
Intake Vital Signs 12/27/23 13:46 Height 5 ft 8 in Weight 182 lb 15.739 oz BMI 27.8 BP 108/75 Blood Pressure Location Lt brachial Position Sitting Pulse 74 Intake Visit Reasons: Ulcerative Colitis Intake Note: Dustin presents in the office as a new patient for UC. CC: Establishing care and he has a few questions for the Dr. Coverstitch Binder Required: No Allergies azathioprine [From IMURAN] Allergy (Unknown, Verified 12/27/23 13:47) PANCREASE SWELLING infliximab [From REMICADE] Allergy (Unknown, Verified 12/27/23 13:47) DIFFICULTY BREATHING mannitol [Reclast] Allergy (Unknown, Verified 12/27/23 13:47) joint pain silver [From TEGADERM AG MESH] Allergy (Unknown, Verified 12/27/23 13:47) BLISTERS water for injection,sterile [Reclast] Allergy (Unknown, Verified 12/27/23 13:47) joint pain zoledronic acid [Reclast] Allergy (Unknown, Verified 12/27/23 13:47) joint pain HPI HPI Comments History of Present Illness Details 48 y.o M with PMH of UC s/p proctocolect [place] with IPAA complicated by incisional and internal hernia leading to SBO and small bowel per with EC fistula, now resolved after extensive surgical interventions outlined below, who is here for elevated LFTs. IBD Hx: Dx: UC Age/year: 32y.o/2006 Prev meds: Asacol, prednisone, imuran (pancreatitis) Current meds: None Surgeries: Multiple. proctocolectomy 2009 with J pouch creation 6 months (Dr Baldo Javier). c/b multiple incisional and parastomal hernia with multiple repairs c/b SBO due to strangulated internal hernia small bowel perforation requiring multiple abd washouts and bowel resections with resultant enterocutaneous fistula hospitalised 07/2020 to 10/2020 and then again 11/2020-12/2020. Eventually seen at [facility] (Dr Price) and underwent repair of EC fistula as well as closure of loop ileostomy in early 2021. Imaging: MRI 2020: ? PSC. Endoscopy: Pouchoscopy 10/27/[address] Price. Has 5cm of rectal cuff. Currently: Reports doing well. Energy levels are good. Weight is stable. Has good appetite. Has watery BMs x 10 per day. No blood in them. Was told by his surgeon may have short gut syndrome. Referred here primarily for ? elevated LFTs and ? PSC. [facility] Medical History DVT (deep venous thrombosis) Gastrointestinal fistula Small bowel perforation DVT (deep venous thrombosis) Irritable bowel syndrome 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 Mother Osteoporosis Heart problem HTN (hypertension) Maternal Aunt Breast cancer Social History Household Members: None Housing: House Are you a primary healthcare representative to a significant other at home: No Do you presently have visiting nurse or other home services: Yes Alcohol intake: current Alcohol intake frequency: does not drink Patient Tobacco Use Status: Former Tobacco user Tobacco use type: Cigarette e-Cigarette/Vaping Use: Never Used Second Hand Smoke Exposure: No service: No Current occupational status: disabled Cognitive needs: No Hearing needs: No Vision needs: Yes Review of Systems Const All systems reviewed & are unremarkable except as noted in HPI and below Physical Exam Vital Signs: Last Vital Signs Pulse 74 12/27/23 13:46 BP 108/75 12/27/23 13:46 BMI result Body Mass Index 27.8 NAD Nonicteric no overt resp distress abd soft, nondistended A/Ox3 norm gait Assessment & Plan Assessment & Plan (1) Elevated LFTs: Code(s): R79.89 - Other specified abnormal findings of blood chemistry (2) Primary sclerosing cholangitis: Code(s): K83.01 - Primary sclerosing cholangitis (3) Ulcerative colitis: Comment: Colectomy 08/05/2010 with reversal colostomy November 2010, fistula was abscess drain September 2019, explore lap with colectomy and takedown of the enterocutaneous fistula October 2019 infection and abscess and drained. Since then has had abscess formation requiring CT drainage and recurrent small-bowel obstruction. Had admission for acute kidney injury and hypernatremia due to hypovolemia having NG tube decompression. August 14 exploratory laparotomy extensively lysis of adhesions and found perforation in the ileum. 80 cm of ileum was resected. Had septic shock and multiple take backs to the operating room for anastomotic breakdown with leaks, waxing and waning blood pressure requirements patient had ileostomy with ventral abdominal closure with mesh. September 15 CT scan showed large fluid collection with lactic acidosis OR for explore laparotomy mesh explantation abdominal washout, drain placement and packing for perforated viscus. September 2021 exploratory laparotomy with lysis of adhesions repair of enterocutaneous fistula ileostomy takedown, hand-sewn anastomosis, diverting loop ileostomy pouch us copy temporary hernia repair with mesh. January 23 ileostomy closure Code(s): K51.90 - Ulcerative colitis, unspecified, without complications Qualifiers: Ulcerative colitis location: ulcerative pancolitis Digestive disease complication type: with fistula Qualified Code(s): K51.013 - Ulcerative (chronic) pancolitis with fistula Plan Reviewed with the pt that based on LFT pattern and MRI appearance in 2020 strongly suspect PSC. However will order hep serologies and AIH, PBC serologies to r/o other etiologies. Plan: - Labs ordered as below - CA 19-9 ordered - MRI liver protocol ordered - May need liver bx depending on above - If PSC confirmed will need annual pouchoscopy given 5 cm of rectal cuff rosaline dysplasia screening Follow up 6 weeks Orders: Orders Ferritin Today R79.89 - Other specified abnormal findings of blood chemistry Vitamin B12 and Folate Today R79.89 - Other specified abnormal findings of blood chemistry RAMBO Reflex Titer and Pattern Today R79.89 - Other specified abnormal findings of blood chemistry Liver Kidney Microsomal Ab Today R79.89 - Other specified abnormal findings of blood chemistry Immunoglobulin G Today R79.89 - Other specified abnormal findings of blood chemistry Immunoglobulin A Today R79.89 - Other specified abnormal findings of blood chemistry Hepatitis A IgG Today R79.89 - Other specified abnormal findings of blood chemistry MR abdomen wo/w con Today K83.01 - Primary sclerosing cholangitis IRON PROFILE Today R79.89 - Other specified abnormal findings of blood chemistry Liver Panel Today R79.89 - Other specified abnormal findings of blood chemistry Mitochondrial Antibody Today R79.89 - Other specified abnormal findings of blood chemistry Transglutaminase IgA Today R79.89 - Other specified abnormal findings of blood chemistry Hepatitis B Core Antibody Today R79.89 - Other specified abnormal findings of blood chemistry Hepatitis B Surface Antibody Today R79.89 - Other specified abnormal findings of blood chemistry Hepatitis B Surface Antigen Today R79.89 - Other specified abnormal findings of blood chemistry Hepatitis C Antibody Today R79.89 - Other specified abnormal findings of blood chemistry Carbohydrate Antigen 19-9 Today K83.01 - Primary sclerosing cholangitis Coding Level of Care Code New Pt Level 5 (29645) Diagnoses Elevated LFTs R79.89 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 Ulcerative colitis location: ulcerative pancolitis Digestive disease complication type: with fistula Time Spent (min) 50 Comment reviewing chart, outside records including [facility] and [facility] + face to face office encounter
[2023-12-27 13:46] VITALS: BP 108/75; PULSE 74; BMI 27.8
== END 2023-12-27 14:28 | disposition home or self-care (01) ==
PROVIDERS: PCP Internal Medicine; Visit Provider Internal Medicine
DX: K51.013 Ulcerative (chronic) pancolitis with fistula (principal); R74.01 Elevation of levels of liver transaminase levels; K83.01 Primary sclerosing cholangitis
CPT/HCPCS: 99204

== ENCOUNTER 2023-12-27 13:41 | Outpatient (REF) | payer OTHER, SELFPAY | END 2023-12-27 13:42 | disposition home or self-care (01) | LOC: HO.LAB 13:41 | PROVIDERS: PCP Internal Medicine; Visit Provider Internal Medicine | DX: K51.013 Ulcerative (chronic) pancolitis with fistula (principal); R79.89 Other specified abnormal findings of blood chemistry; K83.01 Primary sclerosing cholangitis | CPT/HCPCS: 99202 ==

== ENCOUNTER 2023-12-29 09:06 | Outpatient (REF) | payer OTHER, SELFPAY ==
[2023-12-29 11:07] LABS: Alanine Aminotransferase 101 U/L (0-40); Albumin Level 4.1 g/dL (3.5-5.0); Alkaline Phosphatase 424 U/L (39-117); Aspartate Amino Transferase 74 U/L (5-37); Bilirubin Direct 0.8 mg/dL (0.0-0.5); Bilirubin Total 1.6 mg/dL (0.0-1.0); Iron 126 mcg/dL (45-160); Percent Iron Saturation 45 % (15-50); Total Iron Binding Capacity 283 mcg/dL (228-428); Total Protein 7.9 g/dL (6.5-8.0); Unsaturated Iron Binding 157 ug/dL
[2023-12-29 11:13] LABS: HBc Num1 0.21 S/CO (0.00-0.79); HBsAGNum1 0.25 S/CO (0.00-0.99); Hepatitis B Core Antibody Nonreactive (Nonreactive); Hepatitis B Surface Antigen Negative (Negative); ~HepC Num1 0.21 S/CO (0.00-0.79); ~Hepatitis B Surface Antibody NONREACTIVE (Nonreactive); ~Hepatitis C Antibody Nonreactive (Nonreactive)
[2023-12-29 11:14] LABS: Hepatitis A Antibody IgG REACTIVE (Nonreactive); ~Hepatitis A Antibody IgG 2.13 S/CO (0.00-0.99)
[2023-12-29 11:29] LABS: Ferritin 295 ng/mL (20-250)
[2023-12-29 12:32] LABS: Folate 15.7 ng/mL (> or = 4.0); Vitamin B12 > 2000 pg/mL (200-900)
[2023-12-30 16:54] LABS: Immunoglobulin A 327 mg/dL (47-310); Immunoglobulin G 1755 mg/dL (600-1640)
[2023-12-30 19:14] LABS: Transglutaminase IgA <1.0 U/mL
[2023-12-31 15:09] LABS: Carbohydrate Antigen 19-9 15 U/mL (<34)
[2024-01-02 09:23] LABS: Anti Nuclear Antibody Screen NEGATIVE (NEGATIVE)
[2024-01-03 13:37] LABS: Mitochondrial Antibodies NEGATIVE (NEGATIVE)
[2024-01-05 13:47] LABS: Liver Kidney Microsomal Ab <=20.0 U (<=20.0)
== END 2023-12-29 09:07 | disposition home or self-care (01) ==
LOC: HO.LAB 09:06
PROVIDERS: PCP Internal Medicine; Visit Provider Internal Medicine
DX: R79.89 Other specified abnormal findings of blood chemistry (principal); K83.01 Primary sclerosing cholangitis
CPT/HCPCS: 36415; 80076; 82607; 82728; 82746; 82784; 83540; 86038; 86301; 86364; 86376; 86381; 86704; 86706; 86708; 86803; 87340

== ENCOUNTER 2024-01-11 13:35 | Outpatient (REF) | payer OTHER, SELFPAY ==
--- NOTE | ~2024-01-11 | MR_ITS ---
EXAMINATION: MR ABDOMEN WITHOUT AND WITH CONTRAST CLINICAL INFORMATION: Nausea and vomiting. Primary sclerosing cholangitis. COMPARISON: Abdominal ultrasound 10/15/2023 CT abdomen/pelvis 10/24/2013 MRI abdomen 05/28/2009 TECHNIQUE: MR abdomen was performed without and with use of 9 mL intravenous Gadavist gadolinium contrast. Postcontrast images are performed in multiphase dynamic sequences. Imaging was performed in 3 planes. FINDINGS: LUNG BASES: No pleural or pericardial effusion. LIVER, GALLBLADDER, AND BILIARY TREE: Hepatic steatosis. No suspicious hepatic lesion. No biliary ductal dilatation. No periductal thickening or enhancement. The gallbladder is unremarkable with no evidence of gallbladder wall thickening, or obvious pericholecystic inflammatory changes. PANCREAS: No ductal dilatation. SPLEEN: Not enlarged. ADRENAL GLANDS: No adrenal mass. KIDNEYS AND URETERS: The kidneys are symmetric in size and enhancement. No hydronephrosis. No perinephric stranding. GASTROINTESTINAL TRACT: Imaged loops of small and large bowel are not obstructed. ABDOMINAL WALL: Diastases recti. LYMPH NODES: Stable periportal lymph nodes. VASCULAR: Normal caliber abdominal aorta. IVC filter is in place. MR/MR abdomen wo/w con IMPRESSION: Hepatic steatosis.
[2024-01-11] MEDS: gadobutroL 10 ML VIAL IVPUSH (14:33)
== END 2024-01-11 13:36 | disposition home or self-care (01) ==
LOC: HO.MRI 13:35
PROVIDERS: PCP Internal Medicine; Visit Provider Internal Medicine
DX: K83.01 Primary sclerosing cholangitis (principal)
CPT/HCPCS: 74183; A9585

== ENCOUNTER 2024-01-26 08:56 | Day surgery (SDC) | payer OTHER, SELFPAY ==
[2024-01-26] VITALS (10 sets, daily range): BP systolic 100–118; BP diastolic 64–78; PULSE 55–66; RESP 14–116; TEMP 36.3–36.7; O2SAT 94–100; BMI 28.2
--- NOTE | ~2024-01-26 | US_ITS ---
Ultrasound-guided liver biopsy History: Elevated LFTs, ulcerative colitis Procedure: Ultrasound-guided liver biopsy Risks and benefits and possible complications were discussed with the patient and consent form was signed. The abdomen was prepped and draped in usual sterile fashion. 1% lidocaine was used for anesthesia. A 17-gauge coaxial needle was inserted through the skin and soft tissues and into the right lobe of the liver. A total of 3, 18-gauge cores were performed. Permanent ultrasound images were archived. 2 Gelfoam torpedoes were inserted through the coaxial and administered into the biopsy tract and at the level of the capsule. The needle was then removed. The specimens were placed in formalin and sent to pathology. The patient tolerated the procedure well. The procedure was performed under moderate sedation with a dedicated nurse for monitoring of vital signs. The patient received a total of 2 Versed, and 100 Fentanyl. Moderate sedation time: 20 min This procedure was performed by Faustino Aparicio PA-C, and directly supervised by Dr. Nelson. US/US biopsy liver Impression: Ultrasound-guided liver biopsy
[2024-01-26 09:37] LABS: MANUAL DIFF FLAG NO
[2024-01-26 09:38] LABS: Basophils Absolute Auto 0.1 X10*3/uL (0.0-0.2); Eosinophils Absolute Auto 0.4 X10*3/uL (0.0-0.4); Eosinophils Percent Auto 6.2 % (0-4); Hematocrit 47.2 % (42.0-52.0); Imm Gran Abs Auto 0.03 X10*3/uL (0.00-0.03); Imm Gran Pct Auto 0.4 % (0.0-0.4); Lymphocytes Absolute Auto 2.4 X10*3/uL (1.2-4.9); Lymphocytes Percent Auto 33.8 % (20-40); Mean Corpuscular HGB Conc 33.9 g/dl (31.0-36.0); Mean Corpuscular Hemoglobin 31.6 pg (27.0-33.0); Mean Corpuscular Volume 93.3 fL (80.0-98.0); Mean Platelet Volume 10.1 fL (9.4-12.4); Monocytes Absolute Auto 0.5 X10*3/uL (0.1-1.2); Neutrophils Absolute Auto 3.6 x10*3/uL (2.0-8.3); Neutrophils Percent Auto 51.6 % (45-73); Platelet Count 214 X10*3/uL (160-400); Red Blood Count 5.06 X10*6/uL (4.60-5.80); Red Cell Distribution Width 13.2 % (11.0-16.0)
[2024-01-26 09:44] LABS: INTERNATIONAL NORM RATIO 0.8 (0.9-1.1); Prothrombin Time 10.2 SEC (11.1-13.3)
[2024-01-26 09:47] LABS: Partial Thromboplastin Time 34.6 SEC (26.0-36.8)
--- NOTE | 2024-01-26 10:34 | MHC.SHP ---
Pre-Procedural Eval Section A - 24 Hr Update-Section A only Date of Service: 01/26/24 Section B - Complete if H&P > 30 days Chief Complaint: ULCERATIVE CHRONIC PANCOLITIS, LIVER BIO Details of Present Illness: 48 y/o with UC and elevated LFTS. Gi requests liver biopsy Relevant Family History (Specify if Yes): Yes Relevant Social History: None Present Medications: see Short Stay Collaborative assessment Medical History: Significant History History of Previous Operations: Relevant previous surgery/procedure and date(s) Allergies: Allergies Allergy/AdvReac Type Severity Reaction Status Date / Time azathioprine [From IMURAN] Allergy Unknown PANCREASE Verified 01/26/24 09:25 SWELLING infliximab [From REMICADE] Allergy Unknown DIFFICULTY Verified 01/26/24 09:25 BREATHING mannitol [Reclast] Allergy Unknown joint pain Verified 01/26/24 09:25 silver Allergy Unknown BLISTERS Verified 01/26/24 09:25 [From TEGADERM AG MESH] water for injection,sterile Allergy Unknown joint pain Verified 01/26/24 09:25 [Reclast] zoledronic acid [Reclast] Allergy Unknown joint pain Verified 01/26/24 09:25 Review of Systems Sugical H&P ROS: Negative: Constitution, Cardiovascular and Respiratory Exam Surgical H&P Exam: Normal: Heart, Normal: Lungs and Normal: Neurological, Not Evaluated: HEENT and Significant Findings: Abdomen (soft, nd, nt, multiple scars) Plan Diagnosis/Plan: Unchanged I have reviewed the history and physical and performed a pertinent physical examination on my patient. No changes have occurred unless specified. -Liver biopsy Time Spent With Patient Time: Total time managing care of this patient today ____ minutes.
[2024-01-26] MEDS: Lidocaine HCl 1 % MPF 5 ML VIAL 10 ML SUBCUT (11:00)
== END 2024-01-26 14:07 | disposition home or self-care (01) ==
PROVIDERS: Physician Assistant Surgical; PCP Internal Medicine; Visit Provider Internal Medicine
DX: R79.89 Other specified abnormal findings of blood chemistry (principal); K51.013 Ulcerative (chronic) pancolitis with fistula; K83.01 Primary sclerosing cholangitis; K75.81 Nonalcoholic steatohepatitis (NASH); Z88.8 Allergy status to other drugs, medicaments and biological substances; Z87.891 Personal history of nicotine dependence; Z90.49 Acquired absence of other specified parts of digestive tract
CPT/HCPCS: 36415; 47000; 76942; 85025; 85610; 85730; 86850; 86900; 86901; 88307; 88313; 99152; J1170; J2250; J2310; J3010

== ENCOUNTER → 2024-01-26 09:37 | Outpatient (BNV) | payer OTHER, SELFPAY | PROVIDERS: PCP Internal Medicine; Visit Provider Physician Assistant Surgical | DX: R74.01 Elevation of levels of liver transaminase levels (principal); K51.00 Ulcerative (chronic) pancolitis without complications | CPT/HCPCS: 47000; 76942; 99152 ==

== ENCOUNTER 2024-02-07 11:20 | Outpatient (AMB) | payer OTHER, SELFPAY ==
--- NOTE | 2024-02-07 11:23 | A.OFFVIS_ITS ---
Vital Signs 02/07/24 11:38 Height 5 ft 8 in Weight 185 lb 6 oz BMI 28.2 BP 120/75 Blood Pressure Location Lt brachial Position Sitting Pulse 70 Intake Visit Reasons: 6 week follow up Intake Note: Patient is seen in office for 6 weeks follow up visit. Pt c/o: no changes since last visit Credit Control Assistant Required: No Accompanied by: Other Relationship Allergies azathioprine [From IMURAN] Allergy (Unknown, Verified 02/16/24 10:15) PANCREASE SWELLING infliximab [From REMICADE] Allergy (Unknown, Verified 02/16/24 10:15) DIFFICULTY BREATHING mannitol [Reclast] Allergy (Unknown, Verified 02/16/24 10:15) joint pain silver [From TEGADERM AG MESH] Allergy (Unknown, Verified 02/16/24 10:15) BLISTERS water for injection,sterile [Reclast] Allergy (Unknown, Verified 02/16/24 10:15) joint pain zoledronic acid [Reclast] Allergy (Unknown, Verified 02/16/24 10:15) joint pain HPI Comments Details: 48 y.o M with PMH of UC s/p proctocolectomy with IPAA complicated by incisional and internal hernia leading to SBO and small bowel per with EC fistula, now resolved after extensive surgical interventions outlined below, who is here for elevated LFTs. IBD Hx: Dx: UC Age/year: 32y.o/2005 Prev meds: Asacol, prednisone, imuran (pancreatitis) Current meds: None Surgeries: Multiple. proctocolectomy 2009 with J pouch creation 6 months (Dr Baldo Javier). c/b multiple incisional and parastomal hernia with multiple repairs c/b SBO due to strangulated internal hernia small bowel perforation requiring multiple abd washouts and bowel resections with resultant enterocutaneous fistula hospitalised 07/2020 to 10/2020 and then again 11/2020-12/2020. Eventually seen at [facility] (Dr Price) and underwent repair of EC fistula as well as closure of loop ileostomy in early 2021. Imaging: MRI 2020 ([facility]): ? PSC. Endoscopy: Pouchoscopy 10/27/[address] Price. Has 5cm of rectal cuff. 12/27/23: Reports doing well. Energy levels are good. Weight is stable. Has good appetite. Has watery BMs x 10 per day. No blood in them. Was told by his surgeon may have short gut syndrome. Referred here primarily for ? elevated LFTs and ? PSC. 02/07/24: Patient underwent MRI liver protocol 01/10 that not note any large duct PSC. He subsequently underwent ultrasound-guided liver biopsy on 01/25. Path as below. Liver, right lobe, biopsy: Steatohepatitis with: - Portal and lobular chronic inflammation with rare eosinophils. - Mixed micro and macrovesicular steatosis involving 15% of the tissue. - Increased portal and sinusoidal fibrosis (stage II). Comment: Despite the steatohepatitis, a different evolving immune-mediated process cannot be ruled out (for example, primary sclerosing cholangitis, et al). Correlation with other clinical and imaging findings is recommended. Otherwise, does not report abd discomfort, distention, pruritus, fatigue. 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 Mother Osteoporosis Heart problem HTN (hypertension) Maternal Aunt Breast cancer Social History Household Members: None Housing: House Are you a primary nurse wound care to a significant other at home: No Do you presently have visiting nurse or other home services: Yes Alcohol intake: current Alcohol intake frequency: does not drink Patient Tobacco Use Status: Former Tobacco user Tobacco use type: Cigarette e-Cigarette/Vaping Use: Never Used Second Hand Smoke Exposure: No service: No Current occupational status: disabled Cognitive needs: No Hearing needs: No Vision needs: Yes Review of Systems Const All systems reviewed & are unremarkable except as noted in HPI and below Physical Exam Vital Signs: Last Vital Signs Pulse 70 02/07/24 11:38 BP 120/75 02/07/24 11:38 BMI result Body Mass Index 28.2 NAD Nonicteric abd soft, nontender No LUC Results Reviewed Results Reviewed: MRI liver protocol LIVER, GALLBLADDER, AND BILIARY TREE: Hepatic steatosis. No suspicious hepatic lesion. No biliary ductal dilatation. No periductal thickening or enhancement. The gallbladder is unremarkable with no evidence of gallbladder wall thickening, or obvious pericholecystic inflammatory changes. Assessment & Plan Assessment & Plan (1) Elevated LFTs: Code(s): R79.89 - Other specified abnormal findings of blood chemistry Category: Medical (2) Primary sclerosing cholangitis: Code(s): K83.01 - Primary sclerosing cholangitis Category: Medical (3) Ulcerative colitis: Comment: Colectomy 08/05/2010 with reversal colostomy November 2010, fistula was abscess drain September 2019, explore lap with colectomy and takedown of the enteroc utaneous fistula October 2019 infection and abscess and drained. Since then has had abscess formation requiring CT drainage and recurrent small-bowel obstruction. Had admission for acute kidney injury and hypernatremia due to hypovolemia having NG tube decompression. August 14 exploratory laparotomy extensively lysis of adhesions and found perforation in the ileum. 80 cm of ileum was resected. Had septic shock and multiple take backs to the operating room for anastomotic breakdown with leaks, waxing and waning blood pressure requirements patient had ileostomy with ventral abdominal closure with mesh. September 15 CT scan showed large fluid collection with lactic acidosis OR for explore laparotomy mesh explantation abdominal washout, drain placement and packing for perforated viscus. September 2021 exploratory laparotomy with lysis of adhesions repair of enterocutaneous fistula ileostomy takedown, hand-sewn anastomosis, diverting loop ileostomy pouch us copy temporary hernia repair with mesh. January 23 ileostomy closure Code(s): K51.90 - Ulcerative colitis, unspecified, without complications Category: Medical Qualifiers: Digestive disease complication type: with fistula Ulcerative colitis l ocation: ulcerative pancolitis Qualified Code(s): K51.013 - Ulcerative (chronic) pancolitis with fistula Plan Reviewed with the pt that based on LFT pattern and MRI appearance in 2020 strongly suspect PSC. However, most recent MRI without any stricturing disease. Biopsy shows mostly steatohepatitis, and reports no sclerosing lesions or bile duct injury-however final interpretation still maintains can not rule out evolving PSC . Hep serologies, AIH and PBC serologies negative. Ca 19-9 is normal - 15. Plan: - Will refer to Dr Ruiz for second opinion given the conflicting path report. - In the meantime, will start Radha 15mg/kg/day and assess response in 4w - Pt was advised that if determined to have small duct PSC will need frequent monitoring and surveillance for cholangioca, GBca and CRC. (has 5 cm rectal cuff, last pouchoscopy 09/2023) - CBC, LFTs and ADEK ordered - can be done in 4 weeks before next appt - Should also get dexa if small duct PSC confirmed Follow up 3 months Orders: Orders Complete Blood Count no Diff 4 Weeks K83.01 - Primary sclerosing cholangitis Prothrombin Time INR 4 Weeks K83.01 - Primary sclerosing cholangitis Vitamin E 4 Weeks K83.01 - Primary sclerosing cholangitis Lipid Panel 4 Weeks R79.89 - Other specified abnormal findings of blood chemistry Comprehensive Met. Panel 4 Weeks K83.01 - Primary sclerosing cholangitis Vitamin A 4 Weeks K83.01 - Primary sclerosing cholangitis Vitamin D 25-OH Total 4 Weeks K83.01 - Primary sclerosing cholangitis Vitamin K1 4 Weeks K83.01 - Primary sclerosing cholangitis Hemoglobin A1c 4 Weeks R79.89 - Other specified abnormal findings of blood chemistry Referrals Gastroenterology Referral K83.01 - Primary sclerosing cholangitis Medications: New ursodiol (RADHA Forte) Take 1 pill in AM, 2 pills in PM. 500 mg PO TID 270 tabs 0RF 90 days Coding Level of Care Code Est Pt Level 5 (08016) Diagnoses Elevated LFTs R79.89 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 Digestive disease complication type: with fistula Ulcerative colitis location: ulcerative pancolitis
[2024-02-07 11:38] VITALS: BP 120/75; PULSE 70; BMI 28.2
== END 2024-02-07 12:15 | disposition home or self-care (01) ==
PROVIDERS: PCP Internal Medicine; Visit Provider Internal Medicine
DX: R74.01 Elevation of levels of liver transaminase levels (principal); K83.01 Primary sclerosing cholangitis; K51.013 Ulcerative (chronic) pancolitis with fistula
CPT/HCPCS: 99214

== ENCOUNTER → 2024-02-07 11:20 | Outpatient (BNVA) | payer OTHER, SELFPAY | PROVIDERS: PCP Internal Medicine; Visit Provider Internal Medicine | DX: K83.01 Primary sclerosing cholangitis (principal); K51.013 Ulcerative (chronic) pancolitis with fistula; R79.89 Other specified abnormal findings of blood chemistry | CPT/HCPCS: 99212 ==

== ENCOUNTER 2024-02-16 09:58 | Outpatient (AMB) | payer OTHER, SELFPAY ==
[2024-02-16 10:15] VITALS: BP 98/68; PULSE 71; O2SAT 97; BMI 27.8
--- NOTE | 2024-02-16 10:15 | A.OFFPC_ITS ---
Vital Signs 02/16/24 10:15 Height 5 ft 8 in Weight 183 lb BMI 27.8 BP 98/68 Blood Pressure Location Lt brachial Position Sitting Pulse 71 Pulse Source Pulse Oximeter Pulse Oximetry (%) 97 Oxygen Delivery Method Room Air Intake Visit Reasons: Abdomen pain, LBP, hepatic steatosis, Fatigue Allergies azathioprine [From IMURAN] Allergy (Unknown, Verified 02/16/24 10:15) PANCREASE SWELLING infliximab [From REMICADE] Allergy (Unknown, Verified 02/16/24 10:15) DIFFICULTY BREATHING mannitol [Reclast] Allergy (Unknown, Verified 02/16/24 10:15) joint pain silver [From TEGADERM AG MESH] Allergy (Unknown, Verified 02/16/24 10:15) BLISTERS water for injection,sterile [Reclast] Allergy (Unknown, Verified 02/16/24 10:15) joint pain zoledronic acid [Reclast] Allergy (Unknown, Verified 02/16/24 10:15) joint pain Tobacco use date assessed: 11/01/23 Dental Screening Dental Screen Date: 11/01/23 HPI LBP, hepatic steatosis HPI Details 48-year-old overweight male with a histo ry of ulcerative colitis (status post proctocolectomy complicated by incisional internal hernia leading to small bowel obstruction with fistula now resolved with extensive surgical interventions) history of DVT hypertension GERD hypercholesterolemia recurrent major depression coming in for follow-up. Last seen in October 2023. Review of the notes patient just saw Gastroenterology for follow-up. Patient had elevated liver function tests diagnosis of primary sclerosing cholangitis but workup negative patient has been referred to another training and development specialist for 2nd opinion patient was placed on or so if positive will need surveillance for cholangiocarcinoma/colorectal cancer status post pouchoscopy September 2023. 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 Mother Osteoporosis Heart problem HTN (hypertension) Maternal Aunt Breast cancer Social History Household Members: None Housing: House Are you a primary child care associate teacher to a significant other at home: No Do you presently have visiting nurse or other home services: Yes Alcohol intake: current Alcohol intake frequency: does not drink Patient Tobacco Use Status: Former Tobacco user Tobacco use type: Cigarette e-Cigarette/Vaping Use: Never Used Second Hand Smoke Exposure: No service: No Current occupational status: disabled Cognitive needs: No Hearing needs: No Vision needs: Yes Questionnaire PHQ-9 Over the last 2 weeks, how often have you been bothered by any of the following problems? 1. Little interest or pleasure in doing things: several days 2. Feeling down, depressed, or hopeless: nearly every day 3. Trouble falling or staying asleep, or sleeping too much: nearly every day 4. Feeling tired or having little energy: more than half the days 5. Poor appetite or overeating: not at all 6. Feeling bad about yourself - or that you are a failure or have let yourself or your family down: several days 7. Trouble concentrating on things, such as reading the newspaper or watching television: nearly every day 8. Moving or speaking so slowly that other people could have noticed. Or the opposite - being so fidgety or restless that you have been moving around a lot more than usual: not at all 9. Thoughts that you would be better off or of hurting yourself in some way: not at all Total score: 13 Depression Screening Interpretation: Positive Depression Screening Done: Yes Source: Developed by Drs. Arturo Guerrero, Aubrie Burciaga, Nickolas Alejo and colleagues, with an educational lacie from [employer]. Thrive Questionnaire Date Thrive assessed: 11/01/23 AUDIT C Alcohol Use Questionnaire (AUDIT-C) 1. How often do you have a drink containing alcohol?: Never 3. How often do you have six or more drinks on one occasion?: Never Total Score: 0 HO-7 AMB Questionnaire HO-7 Date HO - 7 assessed: 11/01/23 Source: Developed by DrsAna Rosa Guerrero, Aubrie Burciaga, Nickolas Alejo and colleagues, with an educational lacie from [employer]. Physical exam (Primary Care) Vital Signs: Last Vital Signs Pulse 71 02/16/24 10:15 BP 98/68 02/16/24 10:15 Pulse Ox 97 02/16/24 10:15 Oxygen Delivery Method Room Air 02/16/24 10:15 BMI result Body Mass Index 27.8 Tobacco/Smoking Status: Tobacco use Status Tobacco use date assessed 11/01/23 02/16/24 10:16 Patient Tobacco Use Status Former Tobacco user 02/16/24 10:16 Tobacco use type Cigarette 02/16/24 10:16 e-Cigarette/Vaping Use Never Used 02/16/24 10:16 PHQ-9: PHQ-9 Score PHQ-9: Total score 13 02/16/24 10:51 Depression Screening Interpretation: Positive Thrive Assessment: Date of Thrive Assessment Date Thrive assessed 11/01/23 02/16/24 10:16 Const General: alert; No acute distress Eyes Conjunctivae: conjunctivae normal Resp Auscultation: clear to auscultation bilaterally Cardio Rate: regular rate Rhythm: regular rhythm GI Inspection: Yes normal to inspection Extrem General: Yes normal to inspection and No edema Assessment and Plan Assessment & Plan (1) Elevated LFTs: Code(s): R79.89 - Other specified abnormal findings of blood chemistry Plan: Patient is presently being worked up by Gastroenterology concern about primary sclerosing cholangitis. Having a 2nd opinion. If positive will need DEXA scan and surveillance for cholangiocarcinoma/colorectal cancer. (2) Hepatic steatosis: Code(s): K76.0 - Fatty (change of) liver, not elsewhere classified Plan: Low-fat diet and exercise (3) Hypertension: Code(s): I10 - Essential (primary) hypertension Plan: Continue with blood pressure medication. Decrease salt intake and exercise. Takes propranolol 20 mg twice a day (4) GERD (gastroesophageal reflux disease): Code(s): K21.9 - Gastro-esophageal reflux disease without esophagitis Plan: Avoid the foods that causes that usually spicy foods, tomato products, juices, coffee, soda and foods that your sensitive to. After eating do not lie down, allow 3-4 hours before in lie down. And keep the head of bed above 30 degrees to avoid the acid from going up. (5) Ulcerative colitis: Comment: Colectomy 08/05/2010 with reversal colostomy November 2010, fistula was abscess drain September 2019, explore lap with colectomy and takedown of the enterocutaneous fistula October 2019 infection and abscess and drained. Since then has had abscess formation requiring CT drainage and recurrent small-bowel obstruction. Had admission for acute kidney injury and hypernatremia due to hypovolemia having NG tube decompression. August 14 exploratory laparotomy extensively lysis of adhesions and found perforation in the ileum. 80 cm of ileum was resected. Had septic shock and multiple take backs to the operating room for anastomotic breakdown with leaks, waxing and waning blood pressure requirements patient had ileostomy with ventral abdominal closure with mesh. September 15 CT scan showed large fluid collection with lactic acidosis OR for explore laparotomy mesh explantation abdominal washout, drain placement and packing for perforated viscus. September 2021 exploratory laparotomy with lysis of adhesions repair of enterocutaneous fistula ileostomy takedown, hand-sewn anastomosis, diverting loop ileostomy pouch us copy temporary hernia repair with mesh. January 23 ileostomy closure Code(s): K51.90 - Ulcerative colitis, unspecified, without complications Qualifiers: Digestive disease complication type: with fistula Ulcerative colitis location: ulcerative pancolitis Qualified Code(s): K51.013 - Ulcerative (chronic) pancolitis with fistula Plan: Continue to follow-up with Gastroenterology (6) Recurrent major depression: Comment: [facility] Code(s): F33.9 - Major depressive disorder, recurrent, unspecified Plan: Patient has been started on sertraline (7) History of deep vein thrombosis of lower extremity: Comment: IVF filter Code(s): Z86.718 - Personal history of other venous thrombosis and embolism Plan: Continue with anticoagulation Orders: Orders Thyroid Stimulating Hormone Today E78.00 - Pure hypercholesterolemia, unspecified Free T4 (Free Thyroxine) Today E78.00 - Pure hypercholesterolemia, unspecified Vitamin B12 and Folate Today E78.00 - Pure hypercholesterolemia, unspecified Coding Level of Care Code Est Pt Level 4 (60095) Diagnoses Elevated LFTs R79.89 Hepatic steatosis K76.0 Hypertension I10 GERD (gastroesophageal reflux disease) K21.9 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 Digestive disease complication type: with fistula Ulcerative colitis location: ulcerative pancolitis Recurrent major depression F33.9 History of deep vein thrombosis of lower extremity Z86.718
== END 2024-02-16 11:03 | disposition home or self-care (01) ==
PROVIDERS: PCP Internal Medicine; Visit Provider Internal Medicine
DX: R79.89 Other specified abnormal findings of blood chemistry (principal); K51.013 Ulcerative (chronic) pancolitis with fistula; F33.9 Major depressive disorder, recurrent, unspecified; K76.0 Fatty (change of) liver, not elsewhere classified; I10 Essential (primary) hypertension; K21.9 Gastro-esophageal reflux disease without esophagitis; Z86.718 Personal history of other venous thrombosis and embolism
CPT/HCPCS: 99214

== ENCOUNTER 2024-03-07 11:11 | Outpatient (REF) | payer OTHER, SELFPAY ==
[2024-03-07 12:02] LABS: Hemoglobin 15.6 g/dl (14.0-18.0); Mean Corpuscular HGB Conc 33.2 g/dl (31.0-36.0); Mean Corpuscular Hemoglobin 31.5 pg (27.0-33.0); Mean Corpuscular Volume 94.8 fL (80.0-98.0); Mean Platelet Volume 11.2 fL (9.4-12.4); Platelet Count 232 X10*3/uL (160-400); Red Blood Count 4.96 X10*6/uL (4.60-5.80); Red Cell Distribution Width 13.1 % (11.0-16.0); White Blood Count 6.4 X10*3/uL (4.8-10.8)
[2024-03-07 12:12] LABS: INTERNATIONAL NORM RATIO 0.9 (0.9-1.1); Prothrombin Time 11.1 SEC (11.1-13.3)
[2024-03-07 12:13] LABS: Estimated Average Glucose 94 mg/dL; Hemoglobin A1c % 4.9 % (<6.0)
[2024-03-07 13:09] LABS: Free T4 (Free Thyroxine) 1.09 ng/dL (0.71-1.85)
[2024-03-07 13:13] LABS: Alanine Aminotransferase 53 U/L (0-40); Albumin Level 4.2 g/dL (3.5-5.0); Alkaline Phosphatase 212 U/L (39-117); Anion Gap 11 (12-20); Aspartate Amino Transferase 36 U/L (5-37); Bilirubin Total 1.3 mg/dL (0.0-1.0); Blood Urea Nitrogen 12 mg/dL (9-16); Calcium 9.6 mg/dL (8.4-10.2); Carbon Dioxide 26 mmol/L (22-29); Chloride 108 mmol/L (96-108); Cholesterol 251 mg/dL (<200); Estimated Glomerular Filt Rate > 60; Glucose Random 95 mg/dL (60-115); HDL Cholesterol 65 mg/dL (>40); LDL Cholesterol Calculated 143 mg/dL (<100); Potassium 3.2 mmol/L (3.3-5.1); Sodium 142 mmol/L (135-145); Total Protein 8.3 g/dL (6.5-8.0); Triglycerides 217 mg/dL (<150); Vitamin D 25-OH Total 36.2 ng/mL (>30)
[2024-03-07 13:30] LABS: Folate 14.2 ng/mL (> or = 4.0); Vitamin B12 1688 pg/mL (200-900)
[2024-03-10 22:23] LABS: Vitamin A 50 mcg/dL (38-98)
[2024-03-10 23:38] LABS: Alpha-Tocopherol 15.1 mg/L (5.7-19.9); Beta-Gamma Tocopherol <1.0 mg/L (<=4.3)
[2024-03-11 18:58] LABS: Vitamin K1 380 pg/mL (130-1500)
== END 2024-03-07 11:12 | disposition home or self-care (01) ==
LOC: HO.LAB 11:11
PROVIDERS: PCP Internal Medicine; Visit Provider Internal Medicine
DX: K83.01 Primary sclerosing cholangitis (principal); R79.89 Other specified abnormal findings of blood chemistry; E78.00 Pure hypercholesterolemia, unspecified
CPT/HCPCS: 36415; 80053; 80061; 82306; 82607; 82746; 83036; 84439; 84443; 84446; 84590; 84597; 85027; 85610

== ENCOUNTER 2024-04-03 23:12 | Emergency (ER) | payer OTHER, SELFPAY ==
--- NOTE | ~2024-04-03 | XR_ITS ---
EXAMINATION: XR FOOT, RIGHT CLINICAL INFORMATION: Trauma. Pain. COMPARISON: None available. TECHNIQUE: AP, lateral, and oblique views of the right foot. FINDINGS: The bony structures are osteopenic. There is a mildly displaced fracture through the distal aspect distal phalanx first digit. There is soft tissue swelling about the first digit. The joint spaces are maintained. XR/XR foot RT min 3V IMPRESSION: Mildly displaced fracture through the distal aspect of the distal phalanx first digit.
[2024-04-03 23:17] VITALS: BP 117/87; PULSE 75; RESP 16; TEMP 37.2; O2SAT 97; BMI 28.5
[2024-04-04 03:49] VITALS: BP 129/78; PULSE 65; RESP 16; TEMP 36.6; O2SAT 97
[2024-04-04 06:21] VITALS: BP 122/79; PULSE 56; RESP 16; TEMP 36.3; O2SAT 98
--- NOTE | 2024-04-04 07:31 | ED.FALL ---
HPI - Fall General Chief Complaint: Fall Stated Complaint: fell ripped toe nail right foot Time Seen by Provider: 04/04/24 05:37 Source: patient Mode of arrival: ambulatory Limitations: no limitations History of Present Illness ED Provider: Dr. Burgess HPI Narrative: Patient was chasing a dog slipped and ripped off his toenail Onset (ago): hour(s) Related Data Home Medications ?Medication ?Instructions ?Recorded ?Confirmed acetaminophen 500 mg tablet 500 mg PO Q6H PRN Pain 07/11/20 10/12/23 (Tylenol Extra Strength) calcium citrate 250 mg PO DAILY 01/09/22 10/12/23 carboxymethylcellulose sodium 0.5 1 drp ophthalmic (eye) BID PRN Dry 12/27/23 % eye drops (Lubricant Eye Drops) Eye(S) ciclopirox 0.77 % topical gel topical BID 12/27/23 Previous Rx's ?Medication ?Instructions ?Recorded cyanocobalamin (vitamin B-12) 1,000 mcg PO DAILY 90 days #90 caps 06/24/22 1,000 mcg capsule ascorbate calcium (vitamin C) 500 500 mg PO DAILY 90 days #90 tabs 06/27/23 mg tablet cholecalciferol (vitamin D3) 50 50 mcg PO DAILY 90 days #90 caps 07/20/23 mcg (2,000 unit) capsule sertraline 100 mg tablet 100 mg PO DAILY 90 days #90 tabs 08/16/23 apixaban 5 mg tablet (Eliquis) 5 mg PO BID 90 days #180 tabs 10/12/23 propranolol 20 mg tablet 20 mg PO BID 90 days #180 tabs 11/01/23 omeprazole 20 mg capsule,delayed 20 mg PO DAILY 90 days #90 caps 11/14/23 release tizanidine 4 mg capsule 4 mg PO BID PRN muscle spasticity 02/24/24 90 days #90 caps zolpidem 12.5 mg tablet,extended 12.5 mg PO BEDTIME PRN sleep #90 02/24/24 release,multiphase (Ambien CR) tabs folic acid 1 mg tablet 1 mg PO DAILY #90 tabs 03/04/24 ferrous sulfate 325 mg (65 mg 325 mg PO DAILY #90 tabs 03/06/24 iron) tablet (Feosol) ursodiol 500 mg tablet (RADHA Forte) 500 mg PO TID 90 days #270 tabs 03/21/24 cephalexin 500 mg capsule 500 mg PO Q6H 10 days #40 caps 04/04/24 naproxen 500 mg tablet (Naprosyn) 500 mg PO BID #20 tabs 04/04/24 Allergies Allergy/AdvReac Type Severity Reaction Status Date / Time azathioprine [From IMURAN] Allergy Unknown PANCREASE Verified 04/03/24 23:23 SWELLING infliximab [From REMICADE] Allergy Unknown DIFFICULTY Verified 04/03/24 23:23 BREATHING mannitol [Reclast] Allergy Unknown joint pain Verified 04/03/24 23:23 silver Allergy Unknown BLISTERS Verified 04/03/24 23:23 [From TEGADERM AG MESH] water for injection,sterile Allergy Unknown joint pain Verified 04/03/24 23:23 [Reclast] zoledronic acid [Reclast] Allergy Unknown joint pain Verified 04/03/24 23:23 Review of Systems Review of Systems: Yes all other systems are reviewed and are negative Neurologic: Denies Sensory deficit (Neuro) PMFSH Past Medical History Medical History DVT (deep venous thrombosis) Gastrointestinal fistula Small bowel perforation DVT (deep venous thrombosis) Irritable bowel syndrome 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 Mother Osteoporosis Heart problem HTN (hypertension) Maternal Aunt Breast cancer Social History Social History Household Members: None Housing: House Are you a primary rn coronary care unit to a significant other at home: No Do you presently have visiting nurse or other home services: Yes Alcohol intake: current Alcohol intake frequency: does not drink Patient Tobacco Use Status: Former Tobacco user Tobacco use type: Cigarette Smoked in Last 30 Days: No e-Cigarette/Vaping Use: Never Used Second Hand Smoke Exposure: No Substance Use Type: Marijuana Substance Use Frequency: Daily Advance Directives: No Advance Directives Information Provided: Yes Do you have a plan to hurt others: No Plan service: No Current occupational status: disabled Cognitive needs: No Hearing needs: No Vision needs: Yes Physical Exam Vital Signs: Vital Signs: Last Vital Signs Temp 98.1 F 04/04/24 08:25 Pulse 56 04/04/24 08:25 Resp 18 04/04/24 08:25 BP 126/79 04/04/24 08:25 Pulse Ox 100 04/04/24 08:25 O2 Del Method Room Air 04/04/24 08:25 BMI result Body Mass Index 28.5 Const: General: healthy appearing Nutritional Appearance: average body habitus Orientation/consciousness: oriented to person and patient oriented x3 Limitations: no limitations HEENT: Head: Yes normal to inspection Ears: external ears normal General nose exam: Normal external nose present Mouth: Normal oral and palatal mucosa present and oropharynx normal Throat: Yes posterior oropharynx normal Eyes: General: appearance normal, both eyes and all related structures Neck: Other: supple Neck: Yes normal visual inspection Chest: Chest palpation & inspection: normal inspection of the chest Resp: Auscultation: clear to auscultation bilaterally Cardio: Jugular venous distension: no JVD Rate: regular rate Rhythm: regular rhythm Heart sounds: S1 normal heart sound present and S2 normal heart sound present GI: Inspection: Yes normal to inspection Palpation (GI): Soft to palpation, nontender and No hepatosplenomegaly present Auscultation: normal bowel sounds : General: Yes no CVA tenderness Back/Spine/Pelvis: Back: no CVA tenderness Skin: General skin exam: no rashes or lesions noted Neuro: General: oriented to person and patient oriented x3 Cranial nerves: Yes CN's II-XII intact bilaterally Motor exam (neuro): 5/5 motor strength present throughout Sensory Exam: No Sensory deficit (Neuro) Extrem: Other: toenail avulsion Psych: Appearance: grossly normal Course Reevaluation(s) Reevaluation #1: Procedure: digital block of right great toe, nail removed and then sutured back in place Time: 09:13 Reevaluation #2: will keep nail sutured in place for 10 days and put on abx for 10 days, Patient to be kept in hard shoe for toe fracture Time: 09:13 Medical Decision Making Differential Diagnosis Differential Diagnoses: The differential diagnosis associated with the presentation includes Independent Interpretation I performed an independent interpretation of an: Plain X-Ray (distal toe fracture) Prescription Management I considered prescription management with: Pain Medication (will not give narcotic pain medication for this injury) Discharge Plan Discharge Clinical Impression: Fracture of toe, Avulsed toenail Patient Disposition: Home, Self-Care Instructions: Toe Fracture (ED) Additional Instructions: have account management assistant evaluate toe in 10 days Prescriptions: New naproxen [Naprosyn] 500 mg tablet 500 mg PO BID Qty: 20 0RF cephalexin 500 mg capsule 500 mg PO Q6H 10 Days Qty: 40 0RF No Action cyanocobalamin (vitamin B-12) 1,000 mcg capsule 1,000 mcg PO DAILY 90 Days Qty: 90 3RF ascorbate calcium (vitamin C) 500 mg tablet 500 mg PO DAILY 90 Days Qty: 90 3RF sertraline 100 mg tablet 100 mg PO DAILY 90 Days Qty: 90 2RF omeprazole 20 mg capsule,delayed release(DR/EC) 20 mg PO DAILY 90 Days Qty: 90 1RF zolpidem [Ambien CR] 12.5 mg tablet,ext release multiphase 12.5 mg PO BEDTIME PRN (Reason: sleep) Qty: 90 1RF tizanidine 4 mg capsule 4 mg PO BID PRN (Reason: muscle spasticity) 90 Days Qty: 90 2RF folic acid 1 mg tablet 1 mg PO DAILY Qty: 90 3RF ferrous sulfate [Feosol] 325 mg (65 mg iron) tablet 325 mg PO DAILY Qty: 90 3RF ursodiol [RADHA Forte] 500 mg tablet 500 mg PO TID 90 Days Qty: 270 1RF Rx Instructions: Take 1 pill in AM, 2 pills in PM. Eliquis 5 mg tablet 5 mg PO BID 90 Days Qty: 180 3RF acetaminophen [Tylenol Extra Strength] 500 mg tablet 500 mg PO Q6H PRN (Reason: Pain) propranolol 20 mg tablet 20 mg PO BID 90 Days Qty: 180 1RF calcium citrate 250 mg calcium tablet 250 mg PO DAILY cholecalciferol (vitamin D3) 50 mcg (2,000 unit) capsule 50 mcg PO DAILY 90 Days Qty: 90 3RF ciclopirox 0.77 % gel topical BID carboxymethylcellulose sodium [Lubricant Eye Drops] 0.5 % drops 1 drp ophthalmic (eye) BID PRN (Reason: Dry Eye(S)) Referrals: [facility]geons [Provider Group] - 1 week Print Language: Luxembourgish
[2024-04-04 08:25] VITALS: BP 126/79; PULSE 56; RESP 18; TEMP 36.7; O2SAT 100
[2024-04-04] MEDS: Lidocaine HCl 1 % 10 ML VIAL INFILTRATI (09:41)
[2024-04-04] MEDS: cephALEXin 500 MG CAPSULE PO (09:41)
[2024-04-04] MEDS: Diphth,Pertus(ACell),Tet Adult 0.5 ML SYRINGE IM (09:41)
--- NOTE | 2024-04-04 09:47 | PC.NURSE ---
tdap given left deltoid, pt tolerated well, VIS given. toe cleaned w nonadherant dressing and bulky bandage applied.
[2024-04-04 09:48] VITALS: BP 126/79; PULSE 56; RESP 18; TEMP 36.7; O2SAT 100
== END 2024-04-04 09:48 | disposition home or self-care (01) ==
PROVIDERS: Emergency Provider Emergency Medicine; PCP Internal Medicine
DX: S91.201A Unspecified open wound of right great toe with damage to nail, initial encounter (principal); S92.421A Displaced fracture of distal phalanx of right great toe, initial encounter for closed fracture; W01.0XXA Fall on same level from slipping, tripping and stumbling without subsequent striking against object, initial encounter; Y93.K1 Activity, walking an animal; Y92.9 Unspecified place or not applicable; Y99.9 Unspecified external cause status; Z23 Encounter for immunization
CPT/HCPCS: 73630; 90471; 90715; 99284

== ENCOUNTER 2024-05-15 12:15 | Outpatient (AMB) | payer OTHER, SELFPAY ==
--- NOTE | 2024-05-15 12:39 | A.OFFVIS_ITS ---
Vital Signs 05/15/24 12:42 Height 5 ft 8 in Weight 187 lb 6.287 oz BMI 28.5 BP 107/75 Blood Pressure Location Lt brachial Position Sitting Pulse 66 Intake Visit Reasons: 3 month follow up Intake Note: Kailash presents in the office as a 3 month follow up. CC: He states that he is feeling okay and not having any concerns. Public Records Officer Required: No Allergies azathioprine [From IMURAN] Allergy (Unknown, Verified 05/15/24 12:44) PANCREASE SWELLING infliximab [From REMICADE] Allergy (Unknown, Verified 05/15/24 12:44) DIFFICULTY BREATHING mannitol [Reclast] Allergy (Unknown, Verified 05/15/24 12:44) joint pain silver [From TEGADERM AG MESH] Allergy (Unknown, Verified 05/15/24 12:44) BLISTERS water for injection,sterile [Reclast] Allergy (Unknown, Verified 05/15/24 12:44) joint pain zoledronic acid [Reclast] Allergy (Unknown, Verified 05/15/24 12:44) joint pain HPI Comments Details: 48 y.o M with PMH of UC s/p proctocolectomy with IPAA complicated by incisional and internal hernia leading to SBO and small bowel per with EC fistula, now resolved after extensive surgical interventions outlined below, who is here for elevated LFTs. IBD Hx: Dx: UC Age/year: 32y.o/2006 Prev meds: Asacol, prednisone, imuran (pancreatitis) Current meds: None Surgeries: Multiple. proctocolectomy 2009 with J pouch creation 6 months (Dr Baldo Javier). c/b multiple incisional and parastomal hernia with multiple repairs c/b SBO due to strangulated internal hernia small bowel perforation requiring multiple abd washouts and bowel resections with resultant enterocutaneous fistula hospitalised 07/2020 to 10/2020 and then again 11/2020-12/2020. Eventually seen at [facility] (Dr Price) and underwent repair of EC fistula as well as closure of loop ileostomy in early 2021. Imaging: MRI 2020 ([facility]): ? PSC. Endoscopy: Pouchoscopy 10/27/[address] Price. Has 5cm of rectal cuff. 12/27/23: Reports doing well. Energy levels are good. Weight is stable. Has good appetite. Has watery BMs x 10 per day. No blood in them. Was told by his surgeon may have short gut syndrome. Referred here primarily for ? elevated LFTs and ? PSC. 02/07/24: Patient underwent MRI liver protocol 01/10 that not note any large duct PSC. He subsequently underwent ultrasound-guided liver biopsy on 01/25. Path as below. Liver, right lobe, biopsy: Steatohepatitis with: - Portal and lobular chronic inflammation with rare eosinophils. - Mixed micro and macrovesicular steatosis involving 15% of the tissue. - Increased portal and sinusoidal fibrosis (stage II). Comment: Despite the steatohepatitis, a different evolving immune-mediated process cannot be ruled out (for example, primary sclerosing cholangitis, et al). Correlation with other clinical and imaging findings is recommended. Otherwise, does not report abd discomfort, distention, pruritus, fatigue. 05/15/24: Seen in follow up. Has been seen by Dr Ruiz as virtual visit. Likely small marty t PSC but review of path slides pending. Continues on carlos eduardo - good response to therapy so far. Lipids uncontrolled since 2022 and pt not statin for unclear reason, already has SHAW on liver bx. 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 Mother Osteoporosis Heart problem HTN (hypertension) Maternal Aunt Breast cancer Social History Household Members: None Housing: House Are you a primary hearing care practitioner to a significant other at home: No Do you presently have visiting nurse or other home services: Yes Alcohol intake: current Alcohol intake frequency: does not drink Patient Tobacco Use Status: Former Tobacco user Tobacco use type: Cigarette e-Cigarette/Vaping Use: Never Used Second Hand Smoke Exposure: No Substance Use Type: Marijuana service: No Current occupational status: disabled Cognitive needs: No Hearing needs: No Vision needs: Yes Review of Systems Const All systems reviewed & are unremarkable except as noted in HPI and below Physical Exam Vital Signs: Last Vital Signs Pulse 66 05/15/24 12:42 BP 107/75 05/15/24 12:42 BMI result Body Mass Index 28.5 No apparent distress Nonicteric Abdomen soft, nondistended Alert and oriented x3, normal gait Assessment & Plan Assessment & Plan (1) Elevated LFTs: Code(s): R79.89 - Other specified abnormal findings of blood chemistry Category: Medical (2) Primary sclerosing cholangitis: Code(s): K83.01 - Primary sclerosing cholangitis Category: Medical (3) Ulcerative colitis: Code(s): K51.90 - Ulcerative colitis, unspecified, without complications Category: Medical Qualifiers: Digestive disease complication type: with fistula Ulcerative colitis location: ulcerative pancolitis Qualified Code(s): K51.013 - Ulcerative (chronic) pancolitis with fistula (4) Hypercholesterolemia: Code(s): E78.00 - Pure hypercholesterolemia, unspecified Category: Medical Plan Overall picture consistent with UC now with small duct PSC. Most recent MRI without any stricturing disease. Biopsy shows mostly steatohepatitis, and reports no sclerosing lesions or bile duct injury-however final interpretation still maintains can not rule out evolving PSC . Hep serologies, AIH and PBC serologies negative. Ca 19-9 is normal - 15. Plan: - Cont Carlos Eduardo 15mg/kg/day - Repeat LFTs in q3m - due in 4 weeks - Repeat MRI due in 12/2024. - Repeat pouchoscopy due in 09/2024. (Has 5 cm rectal cuff, last pouchoscopy ) - Dexa scan ordered Hyperlipidema Discussed starting mod intensity statin and lifestyle changes. Happy to order Atorva 20 today, and future refills can be transitioned to PCP Follow up 3 months Orders: Orders Liver Panel 4 Weeks K83.01 - Primary sclerosing cholangitis Prothrombin Time INR Today K83.01 - Primary sclerosing cholangitis XR DEXA axial skeleton Today K83.01 - Primary sclerosing cholangitis Medications: New atorvastatin 20 mg PO BEDTIME 90 tabs 0RF atorvastatin 20 mg PO BEDTIME 90 tabs 0RF Discontinued naproxen (Naprosyn) Discontinued Reason: Doctor's Order 500 mg PO BID 20 tabs 0RF Coding Level of Care Code Est Pt Level 5 (48763) Diagnoses Elevated LFTs R79.89 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 Digestive disease complication type: with fistula Ulcerative colitis location: ulcerative pancolitis Hypercholesterolemia E78.00
[2024-05-15 12:42] VITALS: BP 107/75; PULSE 66; BMI 28.5
== END 2024-05-15 13:20 | disposition home or self-care (01) ==
PROVIDERS: PCP Internal Medicine; Visit Provider Internal Medicine
DX: K51.013 Ulcerative (chronic) pancolitis with fistula (principal); K83.01 Primary sclerosing cholangitis; R74.01 Elevation of levels of liver transaminase levels; E78.00 Pure hypercholesterolemia, unspecified
CPT/HCPCS: 99214

== ENCOUNTER → 2024-05-15 12:15 | Outpatient (BNVA) | payer OTHER, SELFPAY | PROVIDERS: PCP Internal Medicine; Visit Provider Internal Medicine | DX: K83.01 Primary sclerosing cholangitis (principal); K51.013 Ulcerative (chronic) pancolitis with fistula; R79.89 Other specified abnormal findings of blood chemistry; E78.00 Pure hypercholesterolemia, unspecified | CPT/HCPCS: 99212 ==

== ENCOUNTER 2024-06-12 12:06 | Outpatient (REF) | payer OTHER, SELFPAY ==
[2024-06-12 13:27] LABS: Alanine Aminotransferase 36 U/L (0-40); Alkaline Phosphatase 282 U/L (39-117); Aspartate Amino Transferase 36 U/L (5-37); Bilirubin Direct 0.7 mg/dL (0.0-0.5); Bilirubin Total 1.4 mg/dL (0.0-1.0); Total Protein 8.1 g/dL (6.5-8.0)
== END 2024-06-12 12:07 | disposition home or self-care (01) ==
LOC: HO.LAB 12:06
PROVIDERS: PCP Internal Medicine; Visit Provider Internal Medicine
DX: K83.01 Primary sclerosing cholangitis (principal)
CPT/HCPCS: 36415; 80076; 85610

== ENCOUNTER 2024-06-15 10:02 | Outpatient (REF) | payer OTHER, SELFPAY ==
--- NOTE | ~2024-06-15 | MM_ITS ---
EXAMINATION: BONE DENSITOMETRY CLINICAL INDICATION: Primary sclerosing cholangitis. COMPARISON: This is the patient's baseline examination. TECHNIQUE: Using a Photozeen DXA System (software version: 13.1) manufactured by [employer], dual-energy x-ray absorptiometry was performed of the lumbar spine and left hip. The images are of good technical quality. Based on ISCD (International Society for Clinical Densitometry) standards of reporting, Z-scores instead of T-scores are reported in this male patient younger than age 50. Summary results are attached. FINDINGS: AP SPINE L1-L4: BMD 1.286 g/cm2, T-score 0.5, Z-score 0.5, Z-score within expected range for age. LEFT FEMUR, NECK: BMD 0.895 g/cm2, T-score -1.3, Z-score -1.0, Z-score within expected range for age. LEFT FEMUR, TOTAL: BMD 0.947 g/cm2, T-score -1.1, Z-score -0.9, Z-score within expected range for age. IDENTIFIED RISK FACTORS: Rheumatoid arthritis, secondary osteoporosis (hyperthyroidism, intestinal or bowel disease, chronic liver disease). HISTORY OF FRACTURE: None listed. MEDICATIONS: Calcium, vitamin D. MM/XR DEXA axial skeleton IMPRESSION: 1. DIAGNOSIS: Based on the lowest Z-score value of -1.0 in the femoral neck, the patient's bone density is within the expected range for age. 2. 10-YEAR FRACTURE RISK PREDICTION, FRAX: Not performed in this patient outside the age range of 50-90 years. 3. Treatment Recommendations: NOF guidelines recommend consideration for treatment in postmenopausal women and men age 50 and older presenting with the following: -A hip or vertebral (clinical or morphometric) fracture. -T-score less than or equal to -2.5 at the femoral neck or spine after appropriate evaluation to exclude secondary causes. -Low bone mass at the hip or spine and a 10-year fracture probability by FRAX of greater than or equal to 3% for hip fracture or greater than or equal to 20% for major osteoporotic fracture based on the [place] adapted WHO algorithm. 4. Other Recommendations: All treatment decisions require clinical judgment and consideration of individual patient factors, including patient preferences, comorbidities, previous drug use, risk factors not captured in the FRAX model (e.g. frailty, falls, vitamin D deficiency, increased bone turnover, interval significant decline in bone density) and possible under or overestimation of fracture risk by FRAX. FUTURE SCAN RECOMMENDATION: People with diagnosed cases of osteoporosis or at high risk for fracture should have regular bone mineral density tests. For patients eligible for Medicare, routine testing is allowed once every 2 years. The testing frequency can be increased to one year for patients who have rapidly progressing disease, those who are receiving or discontinuing medical therapy to restore bone mass, or have additional risk factors. Electronically signed by: Renato Gibbs MD 07/05/2024 11:05 AM EDT
== END 2024-06-15 10:03 | disposition home or self-care (01) ==
LOC: HO.MAMMO 10:02
PROVIDERS: PCP Internal Medicine; Visit Provider Internal Medicine
DX: Z13.820 Encounter for screening for osteoporosis (principal); K83.01 Primary sclerosing cholangitis; Q78.9 Osteochondrodysplasia, unspecified; M81.0 Age-related osteoporosis without current pathological fracture
CPT/HCPCS: 77080

== ENCOUNTER 2024-07-27 14:36 | Outpatient (AMB) | payer OTHER, SELFPAY ==
[2024-07-27 14:39] VITALS: BP 112/62; PULSE 70; O2SAT 97; BMI 27.4
--- NOTE | 2024-07-27 14:39 | MHC.PC.OV ---
Vital Signs 07/27/24 14:39 Height 5 ft 8 in Weight 180 lb BMI 27.4 BP 112/62 Blood Pressure Location Lt brachial Position Sitting Pulse 70 Pulse Source Pulse Oximeter Pulse Oximetry (%) 97 Oxygen Delivery Method Room Air Intake Visit Reasons: elevated LFT hx of DVT, UC Assessment Consultant Required: No Accompanied by: Self / Same As Patient Allergies azathioprine [From IMURAN] Allergy (Unknown, Verified 07/27/24 14:40) PANCREASE SWELLING infliximab [From REMICADE] Allergy (Unknown, Verified 07/27/24 14:40) DIFFICULTY BREATHING mannitol [Reclast] Allergy (Unknown, Verified 07/27/24 14:40) joint pain silver [From TEGADERM AG MESH] Allergy (Unknown, Verified 07/27/24 14:40) BLISTERS water for injection,sterile [Reclast] Allergy (Unknown, Verified 07/27/24 14:40) joint pain zoledronic acid [Reclast] Allergy (Unknown, Verified 07/27/24 14:40) joint pain Tobacco use date assessed: 11/01/23 Dental Screening Dental Screen Date: 11/01/23 HPI elevated LFT hx of DVT, UC HPI Details 35-year-old morbidly obese female with reflux problem coming in for an acute problem. 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 Mother Osteoporosis Heart problem HTN (hypertension) Maternal Aunt Breast cancer Social History Household Members: None Housing: House Are you a primary hospice patient care secretary to a significant other at home: No Do you presently have visiting nurse or other home services: Yes Alcohol intake: current Alcohol intake frequency: does not drink Patient Tobacco Use Status: Former Tobacco user Tobacco use type: Cigarette e-Cigarette/Vaping Use: Never Used Second Hand Smoke Exposure: No Substance Use Type: Marijuana service: No Current occupational status: disabled Cognitive needs: No Hearing needs: No Vision needs: Yes Questionnaire Thrive Questionnaire Date Thrive assessed: 11/01/23 HO-7 AMB Questionnaire HO-7 Date HO - 7 assessed: 11/01/23 Source: Developed by Drs. Arturo Guerrero, Aubrie Burciaga, Nickolas Alejo and colleagues, with an educational lacie from [employer]. Physical exam (Primary Care) Vital Signs: Last Vital Signs Pulse 70 07/27/24 14:39 BP 112/62 07/27/24 14:39 Pulse Ox 97 07/27/24 14:39 Oxygen Delivery Method Room Air 07/27/24 14:39 BMI result Body Mass Index 27.4 Tobacco/Smoking Status: Tobacco use Status Tobacco use date assessed 11/01/23 07/27/24 14:40 Patient Tobacco Use Status Former Tobacco user 07/27/24 14:40 Tobacco use type Cigarette 07/27/24 14:40 e-Cigarette/Vaping Use Never Used 07/27/24 14:40 Thrive Assessment: Date of Thrive Assessment Date Thrive assessed 11/01/23 07/27/24 14:40 Const General: alert; No acute distress Eyes Conjunctivae: conjunctivae normal Resp Auscultation: clear to auscultation bilaterally Cardio Rate: regular rate Rhythm: regular rhythm GI Inspection: Yes normal to inspection Extrem General: Yes normal to inspection and No edema Office Procedures Flu Questionnaire Does the patient have a severe egg allergy?: No Does the patient have severe life threatening allergies?: No Does the patient have a fever or illness today?: No Has the patient ever had Guillain-Olivet Syndrome?: No Has the patient ever had any past reaction to a flu shot?: No Immunizations Fluarix Triv 3971-0404 (PF) 45 mcg (15 mcg x 3)/0.5 mL IM syringe Performing Provider: Peyman Dunn MD [facility] Administered by: LOWELL Victoria on 07/27/24 15:33 Dose Route Admin Location Dispensed Lot Number Expiration Date [facility] Journeyman Electrician 0.5 mL IM Left Deltoid 0.5 mL [id number] 03/26/25 [id number] [employer] VIS Given Date VIS Provided VIS Publication Date 07/27/24 Single Vaccine 21 Eligibility Eligibility Date Funding Source Not [facility] Eligible 07/27/24 Private Coding Level of Care Code Est Pt Level 4 (83913) Diagnoses Primary sclerosing cholangitis K83.01 Hepatic steatosis K76.0 Hypercholesterolemia E78.00 Moderate episode of recurrent major depressive disorder F33.1 Active/Remission status: currently active Major depression episode severity: moderate 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 Digestive disease complication type: with fistula Ulcerative colitis location: ulcerative pancolitis Gastroesophageal reflux disease without esophagitis K21.9 Esophagitis presence: without esophagitis Primary hypertension I10 Hypertension type: primary hypertension History of deep vein thrombosis of lower extremity Z86.718 Assessment & Plan Assessment & Plan (1) Primary sclerosing cholangitis: Code(s): K83.01 - Primary sclerosing cholangitis Category: Medical Plan: Patient is being followed up by Gastroenterology (2) Hepatic steatosis: Code(s): K76.0 - Fatty (change of) liver, not elsewhere classified Category: Medical Plan: Advised low-fat diet and exercise (3) Hypercholesterolemia: Code(s): E78.00 - Pure hypercholesterolemia, unspecified Category: Medical Plan: Avoid fried foods, chicken skin, eggs, butter margarine, pastries and meat. Be it pork or beef they have a lot of cholesterol LDL goal of less than 130 and triglyceride of less than 150 (4) Recurrent major depression: Comment: [place] Code(s): F33.9 - Major depressive disorder, recurrent, unspecified Category: Medical Qualifiers: Active/Remission status: currently active Major depression episode severity: moderate Qualified Code(s): F33.1 - Major depressive disorder, recurrent, moderate Plan: Patient has requested referral to a different place. (5) Ulcerative colitis: Code(s): K51.90 - Ulcerative colitis, unspecified, without complications Category: Medical Qualifiers: Digestive disease complication type: with fistula Ulcerative colitis location: ulcerative pancolitis Qualified Code(s): K51.013 - Ulcerative (chronic) pancolitis with fistula Plan: Patient follows up with Gastroenterology planned colon test (6) GERD (gastroesophageal reflux disease): Code(s): K21.9 - Gastro-esophageal reflux disease without esophagitis Category: Medical Qualifiers: Esophagitis presence: without esophagitis Qualified Code(s): K21.9 - Gastro-esophageal reflux disease without esophagitis Plan: Avoid the foods that causes that usually spicy foods, tomato products, juices, coffee, soda and foods that your sensitive to. After eating do not lie down, allow 3-4 hours before in lie down. And keep the head of bed above 30 degrees to avoid the acid from going up. (7) Hypertension: Code(s): I10 - Essential (primary) hypertension Category: Medical Qualifiers: Hypertension type: primary hypertension Qualified Code(s): I10 - Essential (primary) hypertension Plan: Continue with blood pressure medication. Decrease salt intake and exercise on apixaban 5 mg twice a day (8) History of deep vein thrombosis of lower extremity: Comment: IVF filter Code(s): Z86.718 - Personal history of other venous thrombosis and embolism Category: Medical Plan: Continue with anticoagulation with Eliquis Orders: Orders Free T4 (Free Thyroxine) Today K76.0 - Fatty (change of) liver, not elsewhere classified Complete Blood Count Auto Diff Today K76.0 - Fatty (change of) liver, not elsewhere classified Comprehensive Met. Panel Today K76.0 - Fatty (change of) liver, not elsewhere classified Ferritin Today K76.0 - Fatty (change of) liver, not elsewhere classified Lipid Panel Today E78.00 - Pure hypercholesterolemia, unspecified, K76.0 - Fatty (change of) liver, not elsewhere classified Thyroid Stimulating Hormone Today K76.0 - Fatty (change of) liver, not elsewhere classified Vitamin B12 and Folate Today K76.0 - Fatty (change of) liver, not elsewhere classified Influenza [id number] Immunization Today Z23 - Encounter for immunization Referrals Psychiatry Referral F33.9 - Major depressive disorder, recurrent, unspecified Medications: Refilled zolpidem ER (Ambien CR) 12.5 mg PO BEDTIME PRN 90 tabs 1RF sleep G47.00 - Insomnia, unspecified
== END 2024-07-27 15:23 | disposition home or self-care (01) ==
LOC: HO.HMCH 14:37
PROVIDERS: PCP Internal Medicine; Visit Provider Internal Medicine
DX: K83.01 Primary sclerosing cholangitis (principal); F33.1 Major depressive disorder, recurrent, moderate; K51.013 Ulcerative (chronic) pancolitis with fistula; K76.0 Fatty (change of) liver, not elsewhere classified; E78.00 Pure hypercholesterolemia, unspecified; K21.9 Gastro-esophageal reflux disease without esophagitis; I10 Essential (primary) hypertension; Z86.718 Personal history of other venous thrombosis and embolism

== ENCOUNTER → 2024-07-27 14:36 | Outpatient (BNVA) | payer OTHER, SELFPAY | PROVIDERS: PCP Internal Medicine; Visit Provider Internal Medicine | DX: Z23 Encounter for immunization (principal); K83.01 Primary sclerosing cholangitis; K76.0 Fatty (change of) liver, not elsewhere classified; E78.00 Pure hypercholesterolemia, unspecified; F33.1 Major depressive disorder, recurrent, moderate; K51.013 Ulcerative (chronic) pancolitis with fistula; K21.9 Gastro-esophageal reflux disease without esophagitis; I10 Essential (primary) hypertension; Z86.718 Personal history of other venous thrombosis and embolism | CPT/HCPCS: 90471; 90656; 99212 ==

== ENCOUNTER 2024-08-14 10:16 | Outpatient (AMB) | payer OTHER, SELFPAY ==
--- NOTE | 2024-08-14 10:18 | A.OFFVIS_ITS ---
Vital Signs 08/14/24 10:21 Height 5 ft 8 in Weight 176 lb 5.917 oz BMI 26.8 BP 109/74 Blood Pressure Location Lt brachial Position Sitting Pulse 89 Intake Visit Reasons: 3 month follow up UC, PSC Intake Note: Kailash presents in the office as a 3 month followu p for UC and PSC. CC: He states that diarrhea all the time due to his condition. Pain in the stomach he had a few times but he states that it was not severe. 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 Required: No Allergies azathioprine [From IMURAN] Allergy (Unknown, Verified 08/14/24 10:19) PANCREASE SWELLING infliximab [From REMICADE] Allergy (Unknown, Verified 08/14/24 10:19) DIFFICULTY BREATHING mannitol [Reclast] Allergy (Unknown, Verified 08/14/24 10:19) joint pain silver [From TEGADERM AG MESH] Allergy (Unknown, Verified 08/14/24 10:19) BLISTERS water for injection,sterile [Reclast] Allergy (Unknown, Verified 08/14/24 10:19) joint pain zoledronic acid [Reclast] Allergy (Unknown, Verified 08/14/24 10:19) joint pain HPI Comments Details: 48 y.o M with PMH of UC s/p proctocolectomy with IPAA complicated by incisional and internal hernia leading to SBO and small bowel per with EC fistula, now resolved after extensive surgical interventions outlined below, who is here for elevated LFTs. IBD Hx: Dx: UC Age/year: 32y.o/2005 Prev meds: Asacol, prednisone, imuran (pancreatitis) Current meds: None Surgeries: Multiple. proctocolectomy 2009 with J pouch creation 6 months (Dr Baldo Javier). c/b multiple incisional and parastomal hernia with multiple repairs c/b SBO due to strangulated internal hernia small bowel perforation requiring multiple abd washouts and bowel resections with resultant enterocutaneous fistula hospitalised 07/2020 to 10/2020 and then again 11/2020-12/2020. Eventually seen at [facility] (Dr Price) and underwent repair of EC fistula as well as closure of loop ileostomy in early 2021. Imaging: MRI 2020 ([facility]): ? PSC. Endoscopy: Pouchoscopy 10/27/[address] Albert. Has 5cm of rectal cuff. EIM: Prev osteopenia now resolved 12/27/23: Reports doing well. Energy levels are good. Weight is stable. Has good appetite. Has watery BMs x 10 per day. No blood in them. Was told by his surgeon may have short gut syndrome. Referred here primarily for ? elevated LFTs and ? PSC. 02/07/24: Patient underwent MRI liver protocol 01/10 that not note any large duct PSC. He subsequently underwent ultrasound-guided liver biopsy on 01/25. Path as below. Liver, right lobe, biopsy: Steatohepatitis with: - Portal and lobular chronic inflammation with rare eosinophils. - Mixed micro and macrovesicular steatosis involving 15% of the tissue. - Increased portal and sinusoidal fibrosis (stage II). Comment: Despite the steatohepatitis, a different evolving immune-mediated process cannot be ruled out (for example, primary sclerosing cholangitis, et al). Correlation with other clinical and imaging findings is recommended. Otherwise, does not report abd discomfort, distention, pruritus, fatigue. 05/15/24: Seen in follow up. Has been seen by Dr Ruiz as virtual visit. Likely PSC but review of path slides pending. Continues on radha - good response to therapy so far. Lipids uncontrolled since 2022 and pt not statin for unclear reason, already has SHAW on liver bx. 08/14/24: Here for follow up, accompanied by sister. Had another follow up with Dr Ruiz and is andressa for repeat MRI in december 2024. [facility] [place] interpretation: steatohepatitis. Mild duct injury abd cholestatic changes (greater than expected for degree of steatohepatitis based on keratin stain) Perivenular and periportal sinusoidal fibrosis Dexa 2023 - normal. Prev has had osteopenia. From IBD standpoint, pouchoscopy andressa for Sep 2024. 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 Mother Osteoporosis Heart problem HTN (hypertension) Maternal Aunt Breast cancer Social History Household Members: None Housing: House Are you a primary date night caregiver to a significant other at home: No Do you presently have visiting nurse or other home services: Yes Alcohol intake: current Alcohol intake frequency: does not drink Patient Tobacco Use Status: Former Tobacco user Tobacco use type: Cigarette e-Cigarette/Vaping Use: Never Used Second Hand Smoke Exposure: No Substance Use Type: Marijuana service: No Current occupational status: disabled Cognitive needs: No Hearing needs: No Vision needs: Yes Review of Systems Const All systems reviewed & are unremarkable except as noted in HPI and below Physical Exam Vital Signs: Last Vital Signs Pulse 89 08/14/24 10:21 BP 109/74 08/14/24 10:21 BMI result Body Mass Index 26.8 No apparent distress Nonicteric Abdomen soft, nondistended Alert and oriented x3, normal gait Assessment & Plan Assessment & Plan (1) Elevated LFTs: Code(s): R79.89 - Other specified abnormal findings of blood chemistry Category: Medical (2) Primary sclerosing cholangitis: Code(s): K83.01 - Primary sclerosing cholangitis Category: Medical (3) Ulcerative colitis: Code(s): K51.90 - Ulcerative colitis, unspecified, without complications Category: Medical Qualifiers: Ulcerative colitis location: ulcerative pancolitis Digestive disease complication type: with fistula Qualified Code(s): K51.013 - Ulcerative (chronic) pancolitis with fistula (4) Hypercholesterolemia: Code(s): E78.00 - Pure hypercholesterolemia, unspecified Category: Medical (5) Hepatic steatosis: Code(s): K76.0 - Fatty (change of) liver, not elsewhere classified Category: Medical Plan Overall picture consistent with UC with PSC + biopsy proven steatohepatitis. Most recent MRI without any stricturing disease. Ca 19-9 is normal - 15. Established with Dr Ruiz at [facility]. Radha 15mg/kg/day started. Plan: - Cont Radha 15mg/kg/day - Repeat LFTs in q3m - due in 4 weeks - Will need yearly i) pouchoscopy ([facility] 09/2024 at [facility] [place] - has 5 cm rectal cuff) ii) MRI/MRCP (andressa 12/2024 at [facility] )and CA 19-9 (due 12/2024) for screening of CRC, CCa and GBCa. - Prep for pouchoscopy reviewed. CLD the day before. Enema the night before procedure and another one the morning of the procedure. Sent to pharmacy. - Reviewed use of multivitamins and liz Vit D repletion - DEXA scan 05/2024 normal. Next due 05/2026. - On atorva 20. Also reviewed mod intensity exercise and weight loss of 10% TBW to help with SHAW - Recheck lipids Follow up in 6 months Orders: Orders Liver Panel Today K83.01 - Primary sclerosing cholangitis Gamma Glutamyl Transpeptidase Today K83.01 - Primary sclerosing cholangitis Prothrombin Time INR Today K83.01 - Primary sclerosing cholangitis Complete Blood Count no Diff Today K83.01 - Primary sclerosing cholangitis Lipid Panel Today E78.00 - Pure hypercholesterolemia, unspecified Medications: New sodium phosphates 19-7 gram/118 mL (Fleet Enema) Take one enema the night before the procedure, and the second enema 1h before coming for the procedure 266 mL 0RF Refilled ursodiol (RADHA Forte) Take 1 pill in AM, 2 pills in PM. 500 mg PO TID 90 days 270 tabs 1RF Coding Level of Care Code Est Pt Level 5 (62483) Complex EM visit Add On G2211 Diagnoses Elevated LFTs R79.89 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 Ulcerative colitis location: ulcerative pancolitis Digestive disease complication type: with fistula Hypercholesterolemia E78.00 Hepatic steatosis K76.0
[2024-08-14 10:21] VITALS: BP 109/74; PULSE 89; BMI 26.8
== END 2024-08-14 10:52 | disposition home or self-care (01) ==
PROVIDERS: PCP Internal Medicine; Visit Provider Internal Medicine
DX: R74.01 Elevation of levels of liver transaminase levels (principal); K83.01 Primary sclerosing cholangitis; K51.013 Ulcerative (chronic) pancolitis with fistula; K76.0 Fatty (change of) liver, not elsewhere classified; E78.00 Pure hypercholesterolemia, unspecified
CPT/HCPCS: 99214; G2211

== ENCOUNTER → 2024-08-14 10:16 | Outpatient (BNVA) | payer OTHER, SELFPAY | PROVIDERS: PCP Internal Medicine; Visit Provider Internal Medicine | DX: K83.01 Primary sclerosing cholangitis (principal); K51.013 Ulcerative (chronic) pancolitis with fistula; K76.0 Fatty (change of) liver, not elsewhere classified; E78.00 Pure hypercholesterolemia, unspecified | CPT/HCPCS: 99212 ==

== ENCOUNTER 2024-08-16 08:50 | Outpatient (REF) | payer OTHER, SELFPAY ==
[2024-08-16 09:12] LABS: MANUAL DIFF FLAG NO
[2024-08-16 09:15] LABS: Basophils Absolute Auto 0.1 X10*3/uL (0.0-0.2); Eosinophils Absolute Auto 0.4 X10*3/uL (0.0-0.4); Eosinophils Percent Auto 7.2 % (0-4); Hematocrit 45.7 % (42.0-52.0); Hemoglobin 15.1 g/dl (14.0-18.0); Hemoglobin 15.3 g/dl (14.0-18.0); Imm Gran Abs Auto 0.02 X10*3/uL (0.00-0.03); Imm Gran Pct Auto 0.3 % (0.0-0.4); Lymphocytes Absolute Auto 1.9 X10*3/uL (1.2-4.9); Lymphocytes Percent Auto 31.3 % (20-40); Mean Corpuscular HGB Conc 33.3 g/dl (31.0-36.0); Mean Corpuscular Hemoglobin 31.5 pg (27.0-33.0); Mean Corpuscular Hemoglobin 31.6 pg (27.0-33.0); Mean Corpuscular Volume 95.2 fL (80.0-98.0); Mean Platelet Volume 10.7 fL (9.4-12.4); Mean Platelet Volume 10.9 fL (9.4-12.4); Monocytes Absolute Auto 0.5 X10*3/uL (0.1-1.2); Monocytes Percent Auto 8.1 % (2-11); Neutrophils Absolute Auto 3.1 x10*3/uL (2.0-8.3); Neutrophils Percent Auto 52.1 % (45-73); Platelet Count 197 X10*3/uL (160-400); Red Blood Count 4.84 X10*6/uL (4.60-5.80); Red Cell Distribution Width 12.8 % (11.0-16.0); White Blood Count 5.9 X10*3/uL (4.8-10.8)
[2024-08-16 09:28] LABS: Prothrombin Time 11.1 SEC (10.9-12.4)
[2024-08-16 09:50] LABS: Cholesterol 179 mg/dL (<200); HDL Cholesterol 66 mg/dL (>40); LDL Cholesterol Calculated 90 mg/dL (<100); Triglycerides 115 mg/dL (<150)
[2024-08-16 09:54] LABS: Alanine Aminotransferase 93 U/L (0-40); Alkaline Phosphatase 344 U/L (39-117); Anion Gap 10 (12-20); Aspartate Amino Transferase 75 U/L (5-37); Bilirubin Direct 0.9 mg/dL (0.0-0.5); Bilirubin Total 1.5 mg/dL (0.0-1.0); Blood Urea Nitrogen 11 mg/dL (9-16); Calcium 9.2 mg/dL (8.4-10.2); Carbon Dioxide 30 mmol/L (22-29); Chloride 104 mmol/L (96-108); Cholesterol 178 mg/dL (<200); Estimated Glomerular Filt Rate > 60; Glucose Random 90 mg/dL (60-115); HDL Cholesterol 66 mg/dL (>40); LDL Cholesterol Calculated 89 mg/dL (<100); Potassium 3.4 mmol/L (3.3-5.1); Sodium 141 mmol/L (135-145); Total Protein 8.3 g/dL (6.5-8.0); Triglycerides 117 mg/dL (<150)
[2024-08-16 10:02] LABS: Ferritin 437 ng/mL (20-250); Free T4 (Free Thyroxine) 1.26 ng/dL (0.71-1.85); Thyroid Stimulating Hormone 0.69 uIU/mL (0.32-4.0)
[2024-08-16 10:08] LABS: Gamma Glutamyl Transpeptidase 809 U/L (11-51)
[2024-08-16 10:14] LABS: Folate 17.6 ng/mL (> or = 4.0); Vitamin B12 > 2000 pg/mL (200-900)
== END 2024-08-16 08:51 | disposition home or self-care (01) ==
LOC: HO.LAB 08:50
PROVIDERS: PCP Internal Medicine; Visit Provider Internal Medicine
DX: K76.0 Fatty (change of) liver, not elsewhere classified (principal); E78.00 Pure hypercholesterolemia, unspecified; K83.01 Primary sclerosing cholangitis
CPT/HCPCS: 36415; 80053; 80061; 82248; 82607; 82728; 82746; 82977; 84439; 84443; 85025; 85027; 85610

== ENCOUNTER 2024-10-03 09:28 | Day surgery (SDC) | payer OTHER, SELFPAY ==
[2024-09-29 10:00] VITALS: BMI 26.8
--- NOTE | 2024-10-02 08:58 | HO.ANESPROP2 ---
Documented by User: Daysi Wyman NP 10/02/24 09:03 HPI - Anesthesia Eval Consult details Narrative: 49yo M for Sigmoidoscopy Flexible Eliquis for hx DVT, IVC filter in situ Ulcerative colitis s/p multiple surgical interventions. PMF Active Problems Active Problems: All Active Problems Hepatic osteodystrophy (Acute) Primary sclerosing cholangitis (Acute) Elevated LFTs (Acute) Hearing difficulty of both ears (Acute) Low back pain (Acute) Essential tremor (Acute) Hepatic steatosis (Acute) Hypercholesterolemia (Acute) Ingrown toenail of left foot (Acute) Vision changes (Acute) Abdominal pain (Acute) Insomnia (Acute) Achilles tendinitis (Acute) Recurrent major depression (Acute) Ulcerative colitis (Acute) Iron deficiency anemia (Acute) GERD (gastroesophageal reflux disease) (Acute) Hypertension (Acute) History of deep vein thrombosis of lower extremity (Acute) Past Medical History Medical History DVT (deep venous thrombosis) Gastrointestinal fistula Small bowel perforation DVT (deep venous thrombosis) Irritable bowel syndrome 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 Mother Osteoporosis Heart problem HTN (hypertension) Maternal Aunt Breast cancer Surgical History Surgical History History of colostomy reversal History of resection of terminal ileum Hx of colonoscopy Varicose veins of both lower extremities History of ventral hernia repair History of ear surgery History of colon resection Social History Social History Household Members: None Housing: House Are you a primary home care provider to a significant other at home: No Do you presently have visiting nurse or other home services: Yes Alcohol intake: current Alcohol intake frequency: does not drink Patient Tobacco Use Status: Former Tobacco user Tobacco use type: Cigarette e-Cigarette/Vaping Use: Never Used Second Hand Smoke Exposure: No Use of substances other than those prescribed or required for medical reasons: No Substance Use Type: Marijuana Have you been hit, kicked, punched, or otherwise hurt by someone within the past year? If so, by whom?: No Are you DNR?: No Advance Directives: No Advance Directives Information Provided: Yes Recently lost weight without trying: No service: No Current occupational status: disabled Cognitive needs: No Hearing needs: No Vision needs: Yes Meds Allergies Allergy/AdvReac Type Severity Reaction Status Date / Time azathioprine [From IMURAN] Allergy Unknown PANCREASE Verified 08/14/24 10:19 SWELLING infliximab [From REMICADE] Allergy Unknown DIFFICULTY Verified 08/14/24 10:19 BREATHING mannitol [Reclast] Allergy Unknown joint pain Verified 08/14/24 10:19 silver Allergy Unknown BLISTERS Verified 08/14/24 10:19 [From TEGADERM AG MESH] water for injection,sterile Allergy Unknown joint pain Verified 08/14/24 10:19 [Reclast] zoledronic acid [Reclast] Allergy Unknown joint pain Verified 08/14/24 10:19 Home Medications ?Medication ?Instructions ?Recorded ?Confirmed ?Last Taken ?Type acetaminophen 500 mg tablet 500 mg PO Q6H PRN Pain 07/11/20 10/12/23 Unknown History (Tylenol Extra Strength) calcium citrate 250 mg PO DAILY 01/09/22 10/12/23 Unknown History carboxymethylcellulose sodium 0.5 1 drp ophthalmic (eye) BID PRN Dry 12/27/23 Unknown History % eye drops (Lubricant Eye Drops) Eye(S) ciclopirox 0.77 % topical gel topical BID 12/27/23 Unknown History propranolol 10 mg tablet 10 mg PO BID 05/15/24 Unknown History ketorolac 0.5 % eye drops drp ophthalmic (eye) 08/14/24 Unknown History Exam Height,Weight and Vital Signs: Height 5 ft 8 in Weight 79.832 kg Pertinent Lab Results Pertinent Lab Results: Laboratory Tests 08/16/24 09:10 WBC 5.9 Hgb 15.3 Hct 46.0 Plt Count 197 Sodium 141 Potassium 3.4 Chloride 104 Carbon Dioxide 30 H BUN 11 Creatinine 0.79 Narrative Narrative: Laboratory Tests 08/16/24 09:10 WBC 5.9 Hgb 15.3 Hct 46.0 Plt Count 197 Sodium 141 Potassium 3.4 Chloride 104 Carbon Dioxide 30 H BUN 11 Creatinine 0.79 Assessment and Plan Assessment Anesthesia Assessment: Chart Reviewed Documented by User: David Mann MD 10/03/24 10:32 PMFSH Past Medical History Medical History DVT (deep venous thrombosis) Gastrointestinal fistula Small bowel perforation DVT (deep venous thrombosis) Irritable bowel syndrome 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 Mother Osteoporosis Heart problem HTN (hypertension) Maternal Aunt Breast cancer Family history of problems with anesthesia: No Surgical History Surgical History History of colostomy reversal History of resection of terminal ileum Hx of colonoscopy Varicose veins of both lower extremities History of ventral hernia repair History of ear surgery History of colon resection History of Problems with Anesthesia: No Social History Social History Household Members: None Housing: House Are you a primary home care provider to a significant other at home: No Do you presently have visiting nurse or other home services: Yes Alcohol intake: current Alcohol intake frequency: does not drink Patient Tobacco Use Status: Former Tobacco user Tobacco use type: Cigarette e-Cigarette/Vaping Use: Never Used Second Hand Smoke Exposure: No Use of substances other than those prescribed or required for medical reasons: No Substance Use Type: Marijuana Have you been hit, kicked, punched, or otherwise hurt by someone within the past year? If so, by whom?: No Are you DNR?: No Advance Directives: No Advance Directives Information Provided: Yes Recently lost weight without trying: No service: No Current occupational status: disabled Cognitive needs: No Hearing needs: No Vision needs: Yes Meds Allergies Allergy/AdvReac Type Severity Reaction Status Date / Time azathioprine [From IMURAN] Allergy Unknown PANCREASE Verified 08/14/24 10:19 SWELLING infliximab [From REMICADE] Allergy Unknown DIFFICULTY Verified 08/14/24 10:19 BREATHING mannitol [Reclast] Allergy Unknown joint pain Verified 08/14/24 10:19 silver Allergy Unknown BLISTERS Verified 08/14/24 10:19 [From TEGADERM AG MESH] water for injection,sterile Allergy Unknown joint pain Verified 08/14/24 10:19 [Reclast] zoledronic acid [Reclast] Allergy Unknown joint pain Verified 08/14/24 10:19 Home Medications ?Medication ?Instructions ?Recorded ?Confirmed ?Last Taken ?Type acetaminophen 500 mg tablet 500 mg PO Q6H PRN Pain 07/11/20 10/12/23 Unknown History (Tylenol Extra Strength) calcium citrate 250 mg PO DAILY 01/09/22 10/12/23 Unknown History carboxymethylcellulose sodium 0.5 1 drp ophthalmic (eye) BID PRN Dry 12/27/23 Unknown History % eye drops (Lubricant Eye Drops) Eye(S) ciclopirox 0.77 % topical gel topical BID 12/27/23 Unknown History propranolol 10 mg tablet 10 mg PO BID 05/15/24 Unknown History ketorolac 0.5 % eye drops drp ophthalmic (eye) 08/14/24 Unknown History Exam Airway Mallampati Class: II TM Dist: >3cm Neck ROM: Full Loose/Missing/Broken Teeth: No Heart: ok Lungs: ok Assessment and Plan Assessment Anesthesia Assessment: Anesthesia Plan Discussed Final Anesthetic Review Family History of Problems with Anesthesia: No History of Problems with Anesthesia: No NPO: Yes ASA Class: III Final Preanesthetic Review: No Changes in Pt Med Stat, Meds/Allgs Chart Reviewed, Consent Obtained/Reviewed and Anes Risks/Benef Reviewed Patient Risk: Intermediate Procedure Risk: Low Assessment/Block/Sedation in SS: Assess/Block/Sedation-SS Anesthetic Plan Anesthetic Plan: MAC: and Agree w/ Assess. and Plan Disposition: Standard PACU
[2024-10-03 09:35] VITALS: BMI 27.4
--- NOTE | 2024-10-03 09:40 | MHC.SHP ---
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 Umbilical hernia Nystagmus, congenital Chronic pancreatitis Myeloproliferative disorder Ulcerative colitis Iron deficiency anemia GERD (gastroesophageal reflux disease) Hypertension History of deep vein thrombosis of lower extremity Current use of anticoagulant therapy Present Medications: see Short Stay Collaborative assessment Allergies: Allergies Allergy/AdvReac Type Severity Reaction Status Date / Time azathioprine [From IMURAN] Allergy Unknown PANCREASE Verified 08/14/24 10:19 SWELLING infliximab [From REMICADE] Allergy Unknown DIFFICULTY Verified 08/14/24 10:19 BREATHING mannitol [Reclast] Allergy Unknown joint pain Verified 08/14/24 10:19 silver Allergy Unknown BLISTERS Verified 08/14/24 10:19 [From TEGADERM AG MESH] water for injection,sterile Allergy Unknown joint pain Verified 08/14/24 10:19 [Reclast] zoledronic acid [Reclast] Allergy Unknown joint pain Verified 08/14/24 10:19 Review of Systems Review of Systems Comment: Ten point ROS negative Exam Exam Comment: Gen appear: No acute distress HEENT: no icterus Chest: No overt resp distress Abd: soft, nontender, nondistended Psych: Stable affect, answering questions appropriately Neuro: A/Ox3 noted to move all extremities spontaneously Ext: no peripheral edema Plan Diagnosis/Plan: Unchanged I have reviewed the history and physical and performed a pertinent physical examination on my patient. No changes have occurred unless specified. Time Spent With Patient Time: Total time managing care of this patient today ____ minutes.
[2024-10-03 09:47] VITALS: BP 114/78; PULSE 64; RESP 16; TEMP 36.7; O2SAT 100
[2024-10-03] MEDS: Lactated Ringers 1,000 ML 100 ML IVCONT (09:58)
[2024-10-03 10:55] VITALS: BP 95/61; PULSE 64; RESP 18; TEMP 36.2; O2SAT 97
--- NOTE | 2024-10-03 11:02 | P.OPN-COLO_ITS ---
Colonoscopy Operative Note Operative Note Date of Service: 10/03/24 Narrative: Procedure: Pouchoscopy Indication: Hx of UC and PSC Endoscopist: Tamar Byers MD Anesthesia Provider: David Mann Anesthesia type: MAC Instrument: Olympus [id number] Consent: Indication, risks vs benefits, and alternatives were discussed with the patient who gave written informed consent to proceed. EKG, pulse, pulse oximetry and blood pressure were monitored throughout the procedure. Please see anesthesia flowsheet. Procedure: The patient was brought to the procedure room and placed in the left lateral decubitus position. IV medications were administered by the anesthesia provider in attendance. A digital rectal exam was performed which was normal. The scope was then inserted through the anus and advanced through the pouch to 20 cm. Mucosa was carefully examined under high definition white light as the i nstrument was slowly withdrawn in a retrograde panoramic fashion. Retroflexion was performed. The procedure was not difficult. There were no immediate obvious complications. The quality of the prep was adequate. Limitations: No limitations. Findings: Mucosa: Normal anorectal junction noted. Rectal cuff mucosa appeared normal. There was erythema and edema of the pouch. Cold forceps biopsies were taken from the pouch from 10 and 5 cm for dysplasia surveillance and r/o pouchitis. Protruding lesions: * Small internal hemorrhoids without stigmata of recent bleeding. Impression: 1. R/o pouchitis (biopsy) 2. Normal rectal mucosa (biopsy) Recommendations: - Follow path results. - Will discuss management depending on results - Repeat pouchoscopy in 1 year.
[2024-10-03 11:11] VITALS: BP 101/62; PULSE 83; RESP 16; O2SAT 98
== END 2024-10-03 11:57 | disposition home or self-care (01) ==
PROVIDERS: PCP Internal Medicine; Visit Provider Internal Medicine
PROC: 0DJD8ZZ Inspection of Lower Intestinal Tract, Via Natural or Artificial Opening Endoscopic (ICD-10-PCS; CPT 45330; principal; 2024-10-03 10:40)
DX: K51.013 Ulcerative (chronic) pancolitis with fistula (principal); K64.8 Other hemorrhoids; Z90.49 Acquired absence of other specified parts of digestive tract; K83.01 Primary sclerosing cholangitis; K76.0 Fatty (change of) liver, not elsewhere classified; K21.9 Gastro-esophageal reflux disease without esophagitis; R79.89 Other specified abnormal findings of blood chemistry; D50.9 Iron deficiency anemia, unspecified; D47.1 Chronic myeloproliferative disease; I10 Essential (primary) hypertension; E78.00 Pure hypercholesterolemia, unspecified; I83.93 Asymptomatic varicose veins of bilateral lower extremities; Z86.718 Personal history of other venous thrombosis and embolism; Z79.01 Long term (current) use of anticoagulants; Z79.899 Other long term (current) drug therapy; Z88.8 Allergy status to other drugs, medicaments and biological substances; Z95.828 Presence of other vascular implants and grafts; Z98.890 Other specified postprocedural states; Z87.891 Personal history of nicotine dependence
CPT/HCPCS: 44386; 88305; J2003; J2704

== ENCOUNTER → 2024-10-03 09:28 | Outpatient (BNV) | payer OTHER, SELFPAY | PROVIDERS: PCP Internal Medicine; Visit Provider Internal Medicine | DX: K51.013 Ulcerative (chronic) pancolitis with fistula (principal) | CPT/HCPCS: 44386 ==

== ENCOUNTER 2024-10-16 11:43 | Outpatient (AMB) | payer OTHER, SELFPAY ==
--- NOTE | 2024-10-16 11:48 | A.OFFVIS_ITS ---
Vital Signs 10/16/24 11:50 Height 5 ft 8 in Weight 185 lb 3.013 oz BMI 28.2 BP 109/66 Blood Pressure Location Lt brachial Position Sitting Pulse 72 Intake Visit Reasons: f.u simoid Intake Note: Kailash presents in the office as a follow up sigmoidoscopy. CC: No concerns just here for results. Public Finance Specialist Required: No Allergies azathioprine [From IMURAN] Allergy (Unknown, Verified 10/16/24 11:50) PANCREASE SWELLING infliximab [From REMICADE] Allergy (Unknown, Verified 10/16/24 11:50) DIFFICULTY BREATHING mannitol [Reclast] Allergy (Unknown, Verified 10/16/24 11:50) joint pain silver [From TEGADERM AG MESH] Allergy (Unknown, Verified 10/16/24 11:50) BLISTERS water for injection,sterile [Reclast] Allergy (Unknown, Verified 10/16/24 11:50) joint pain zoledronic acid [Reclast] Allergy (Unknown, Verified 10/16/24 11:50) joint pain HPI Comments Details: 48 y.o M with PMH of UC s/p proctocolectomy with IPAA complicated by incisional and internal hernia leading to SBO and small bowel per with EC fistula, now resolved after extensive surgical interventions outlined below, who is here for elevated LFTs. IBD Hx: Dx: UC Age/year: 32y.o/2006 Prev meds: Asacol, prednisone, imuran (pancreatitis) Current meds: None Surgeries: Multiple. proctocolectomy 2009 with J pouch creation 6 months (Dr Baldo Javier). c/b multiple incisional and parastomal hernia with multiple repairs c/b SBO due to strangulated internal hernia small bowel perforation requiring multiple abd washouts and bowel resections with resultant enterocutaneous fistula hospitalised 07/2020 to 10/2020 and then again 11/2020-12/2020. Eventually seen at [facility] (Dr Price) and underwent repair of EC fistula as well as closure of loop ileostomy in early 2021. Imaging: MRI 2020 [facility] ? PSC. Endoscopy: Pouchoscopy 10/27/[address] Price. Has 5cm of rectal cuff. EIM: Prev osteopenia now resolved 12/27/23: Reports doing well. Energy levels are good. Weight is stable. Has good appetite. Has watery BMs x 10 per day. No blood in them. Was told by his surgeon may have short gut syndrome. Referred here primarily for ? elevated LFTs and ? PSC. 02/07/24: Patient underwent MRI liver protocol 01/10 that not note any large duct PSC. He subsequently underwent ultrasound-guided liver biopsy on 01/25. Path as below. Liver, right lobe, biopsy: Steatohepatitis with: - Portal and lobular chronic inflammation with rare eosinophils. - Mixed micro and macrovesicular steatosis involving 15% of the tissue. - Increased portal and sinusoidal fibrosis (stage II). Comment: Despite the steatohepatitis, a different evolving immune-mediated process cannot be ruled out (for example, primary sclerosing cholangitis, et al). Correlation with other clinical and imaging findings is recommended. Otherwise, does not report abd discomfort, distention, pruritus, fatigue. 05/15/24: Seen in follow up. Has been seen by Dr Ruiz as virtual visit. Likely PSC but review of path slides pending. Continues on kala - good response to therapy so far. Lipids uncontrolled since 2022 and pt not statin for unclear reason, already has SHAW on liver bx. 08/14/24: Here for follow up, accompanied by sister. Had another follow up with Dr Ruiz and is andressa for repeat MRI in december 2024. [facility] path interpretation: steatohepatitis. Mild duct injury abd cholestatic changes (greater than expected for degree of steatohepatitis based on keratin stain) Perivenular and periportal sinusoidal fibrosis Dexa 2023 - normal. Prev has had osteopenia. From IBD standpoint, pouchoscopy andressa for Sep 2024. 10/03/24: Pouchoscopy Impression: 1. R/o pouchitis (biopsy) 2. Normal rectal mucosa (biopsy) Recommendations: - Follow path results. - Will discuss management depending on results - Repeat pouchoscopy in 1 year. Path: A. Colon, 10 cm, biopsy: Chronic, mildly active, colitis. B. Colon, 5 cm, biopsy: Chronic inactive colitis. Comment: No dysplasia is identified 10/16/24: Pt was not originally booked for a follow up today but presented to the office any way to get post pouchoscopy results. These had been communicated to him over the portal previously. Was seen as urgent visit . Results reviewed, and would favor x2 weeks fo ABx for pouchitis. Pt recalls getting this the last time he had pouchoscopy done through his colorectal surgeon however not sure if this made any difference to his sx. 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 Mother Osteoporosis Heart problem HTN (hypertension) Maternal Aunt Breast cancer Social History Household Members: None Housing: House Are you a primary acute care certified nursing assistant to a significant other at home: No Do you presently have visiting nurse or other home services: Yes Alcohol intake: current Alcohol intake frequency: does not drink Patient Tobacco Use Status: Former Tobacco user Tobacco use type: Cigarette e-Cigarette/Vaping Use: Never Used Second Hand Smoke Exposure: No Substance Use Type: Marijuana service: No Current occupational status: disabled Cognitive needs: No Hearing needs: No Vision needs: Yes Review of Systems Const All systems reviewed & are unremarkable except as noted in HPI and below Physical Exam Vital Signs: Last Vital Signs Pulse 72 10/16/24 11:50 BP 109/66 10/16/24 11:50 BMI result Body Mass Index 28.2 No apparent distress Nonicteric Abdomen soft, nondistended Alert and oriented x3, normal gait Assessment & Plan Assessment & Plan (1) Pouchitis: Code(s): K91.850 - Pouchitis Category: Medical Plan Has frequent loose BMs which per his hx are unchanged since the surgery. Reviewed that would favor trial of 2 weeks of ABx to see if sx improve. Recommend keeping a sx diary for objective assessment to eliminate recall bias. Plan: - Cipro 500 BID x 2 weeks - Follow up after he has been seen at [facility] Medications: New ciprofloxacin HCl (Cipro) 500 mg PO BID 28 tabs 0RF 14 days Coding Level of Care Code Est Pt Level 3 (40129) Diagnoses Pouchitis K91.850
[2024-10-16 11:50] VITALS: BP 109/66; PULSE 72; BMI 28.2
== END 2024-10-16 12:23 | disposition home or self-care (01) ==
PROVIDERS: PCP Internal Medicine; Visit Provider Internal Medicine
DX: K91.850 Pouchitis (principal)
CPT/HCPCS: 99213

== ENCOUNTER → 2024-10-16 11:43 | Outpatient (BNVA) | payer OTHER, SELFPAY | PROVIDERS: PCP Internal Medicine; Visit Provider Internal Medicine | DX: K91.850 Pouchitis (principal); Z98.890 Other specified postprocedural states | CPT/HCPCS: 99212 ==

== ENCOUNTER 2024-11-15 15:34 | Outpatient (REF) | payer OTHER, SELFPAY ==
--- OUTSIDE RECORDS SUMMARY | 2024-11-15 15:37 | XMS_ITS | Clinical Summary ---
Author Organization [facility], Address [address] [place] [address] [place] [address] Phone Care Team Providers Care Security Controls Assessor Name Role Phone Peyman Dunn MD Primary Care Provider [phone] Allergies Active Allergy Reactions Criticality Noted Date Comments Azathioprine Other (see comments) 11/23/2019 Fish Allergy Other (see comments) 11/23/2019 Infliximab Other (see comments) 11/23/2019 Medications propranolol (INDERAL) 10 MG tablet Take 1 tablet by mouth 2 (two) times a day Active cyanocobalamin (VITAMIN B-12) 1000 MCG tablet TK 1 T PO QD 0 Active OXYCODONE-ACETA MINOPHEN PO Take 5 mg by mouth Active acetaminophen (TYLENOL) 500 MG tablet Take by mouth every 6 (six) hours if needed for mild pain Active ascorbic acid (VITAMIN C) 500 MG CR capsule Take 500 mg by mouth 1 (one) time each day Active calcium carbonate (TUMS) 500 MG chewable tablet Chew 1 tablet 1 (one) time each day Active Cholecalciferol (Vitamin D3) 50 MCG (1999 UT) tablet Take by mouth Active dicyclomine (BENTYL) 10 MG capsule Take 10 mg by mouth 4 (four) times a day (before meals and nightly) Active dilTIAZem (CARDIZEM) 120 MG immediate release tablet Take 120 mg by mouth 4 (four) times a day Active ferrous sulfate 325 (65 Fe) MG tablet Take 325 mg by mouth 1 (one) time each day with breakfast Active folic acid (FOLVITE) 1 MG tablet Take 1 mg by mouth 1 (one) time each day Active omeprazole (PriLOSEC) [address] capsule Take 20 mg by mouth 1 (one) time each day Do not crush or chew. Active sildenafil (VIAGRA) 100 MG tablet Take 100 mg by mouth 1 (one) time each day if needed for erectile dysfunction Active warfarin (COUMADIN) 5 MG tablet Take 5 mg by mouth 1 (one) time each day Take as directed per After Visit Summary. Active zolpidem (AMBIEN) 5 MG tablet Take 5 mg by mouth at night if needed for sleep Active apixaban (ELIQUIS) 2.5 MG tablet Take 5 mg by mouth 2 (two) times a day Active Active Problems Problem Noted Date Diagnosed Date Chronic kidney disease stage 2 11/23/2019 Hypertensive heart disease without congestive he art failure 11/23/2019 Resolved Problems Problem Noted Date Diagnosed Date Resolved Date Hypokalemia 08/01/2020 09/16/2021 Acute nontraumatic kidney injury 11/23/2019 09/16/2021 Cerebrovascular accident 11/23/2019 Immunizations Name Administration Dates Next Due [facility] SARS-COV-2 07/11/2021 Family History Medical History Relation Comments Diabetes Mother Mat. Grandmother Heart disease Mother Hypertension Mother Relation Status Comments Father Unknown Mother Unknown Social History Tobacco Use Types Packs/Day Years Used Date Smoking Tobacco: Never Alcohol Use Standard Drinks/Week Comments No 0 (1 standard drink = 0.6 oz pur e alcohol) Sex and Gender Information Value Date Recorded Sex Assigned at Not on file Legal Sex Male 4:31 PM EST Gender Identity Not on file Sexual Orientation Not on file Last Filed Vital Signs Vital Sign Reading Time Taken Comments Blood Pressure 110/70 11/27/2019 3:37 PM EST Pulse 74 11/27/2019 3:37 PM EST Temperature - - Respiratory Rate 16 11/27/2019 3:37 PM EST Oxygen Saturation - - Inhaled Oxygen Concentration - - Weight 97.5 kg (215 lb) 11/27/2019 3:37 PM EST Height 172.7 cm (5' 8 ) 11/27/2019 3:37 PM EST Body Mass Index 32.69 11/27/2019 3:37 PM EST Plan of Treatment Health Maintenance Due Date Last Done Comments Pneumococcal Vaccine: Pediat rics (0 to 5 Years) and At-Risk Patients (6 to 64 Years) (1 of 2 - PCV) 1983 Hepatitis B Vaccine (1 of 3 - 19+ 3-dose series) 09/21 Influenza Vaccine (#1) 2024 Insurance [facility] [address] [place] [id number] Care Teams Security Controls Assessor Relationship Specialty Start Date End Date Peyman Dunn MD [facility] [address] [place] PCP - General 08/01/19
--- OUTSIDE RECORDS SUMMARY | 2024-11-15 15:37 | XMS_ITS ---
Author Organization [facility] Address [address] [place] [address] Care Team Providers Care Hander In Name Role Phone Po Peyman VILLA Primary Care Provider Unavailálvaro e Arturo Baxter Unavailable [phone] Nivia Hidalgo Unavailable Unavailable REASON FOR VISIT Patient presents today for ELEVATED LFT'S Encounters Encounter Location Date Provider Diagnosis [facility] [address] [place] [address] 02/08/2024 Arturo Baxter PLAN OF TREATMENT No Information
--- OUTSIDE RECORDS SUMMARY | 2024-11-15 15:37 | XMS_ITS ---
[facility] Address [address] [place] [address] Care Team Providers Care Decorator Consultant Name Role Phone Peyman Dunn Primary Care Provider Keely Treviño Unavailable [phone] Allergies Allergen (clinical drug ingredient) Drug/Non Drug Allergy documented on EMR Reaction Allergy Type Onset Date Status infliximab Remicade Unknown Drug Allergy Active Adhesive Unknown Allergy Active REASON FOR VISIT Pcp- 06/30/24, Painful Toe(s) Medications Medication SIG (Take, Route, Frequency, Duration) Notes Start Date End Date Status Propranolol HCl 10 MG 1 tablet Orally On ce a day Active Ferrous Sulfate 325 (65 Fe) MG 1 tablet Orally Three times a Week Active Zolpidem Tartrate ER 12.5 MG 1 tablet at bedtime as needed Orally Once a day Active tiZANidine HCl 4 MG 1 tablet as needed Orally Three times a day Active Vitamin B12 1000 MCG 1 tablet Orally Onc e a day Active Tylenol 500 mg Active Vitamin C 500 MG as directed Orally Active Ursodiol Active dilTIAZem HCl 120 MG as directed Orally Not-Taking Calcium 500 MG 1 tablet with meals Orally Twice a day Active Omeprazole 20 MG 1 capsule 30 minutes before morning meal Orally Once a day Not-Taking Sertraline HCl 100 MG 1 tablet Orally On ce a day Not-Taking Zolpidem Tartrate ER 12.5 MG 1 tablet at bedtime as needed Orally Once a day Not-Taking Vitamin D3 50 MCG (2000 UT) 1 capsule Orally Once a day Not-Taking Eliquis 5 MG 1 tablet Orally Twic e a day Not-Taking Vitamin B12 1000 MCG 1 tablet Orally Onc e a day Not-Taking dilTIAZem HCl 120 MG as directed Orally Not-Taking Propranolol HCl 10 MG 1 tablet Orally On ce a day Not-Taking Ferrous Sulfate 325 (65 Fe) MG 1 tablet Orally Three times a Week Not-Taking tiZANidine HCl 4 MG 1 tablet as needed Orally Three times a day Not-Taking Vitamin C 500 MG as directed Orally Active Folic Acid 1 MG 1 tablet Orally Once a day Active Ciclopirox Olamine 0.77 % 1 application Externally Twice a day for 30 days Active Ciclopirox 0.77 % 1 application Externally Twice a day for 365 days Active Omeprazole 20 MG 1 capsule 30 minutes before morning meal Orally Once a day Active Eliquis 5 MG 1 tablet Orally Twic e a day Active Vitamin D3 Active Sertraline HCl 100 MG 1 tablet Orally On ce a day Active Social History Tobacco Use: Social History Observation Description Date Details (start date - stop date) Never Smoker NA - NA Tobacco Use/Smoking Question Answer Notes Are you a: nonsmoker Alcohol Screen Question Answer Notes Did you have a drink containing alcohol in the p ast year? No Points 0 Interpretation Negative Tobacco use other than smoking: Question Answer Notes Are you an other tobacco user? No Vital Signs Height 5ft 8in in 07/03/2024 Weight 185 lbs 07/03/2024 BMI 28.13 kg/m2 07/03/2024 Encounters Encounter Location Date Provider Diagnosis [facility] [address] 07/03/2024 Keely Charles Closed displaced fracture of distal phalanx of right great toe with routine healing S92.421D Assessments Encounter Date Diagnosis (ICD Code) Assessment Notes Treatment Notes Treatment Clinical Notes Section Notes 07/03/2024 Closed displaced fracture of distal phalanx of right great toe with routine healing (ICD-10 - S92.421D) Plan Of Treatment Pending Test Test Name Order Date X ray : Foot, right 3V 07/03/2024 Next Appt Details Follow Up: prn, Reason: Procedure Notes * Category Sub-Category Detail Notes Debride skin and subQ Open wound Physician of record performed open wound selective debridement of devitalized necrotic/nonviable soft tissue, fibrin, exudate, epidermis, dermis, thru skin and subcutaneous fat tissue, first 20 sq cm or less, using sharp dissection with sterile 15 blade, and/or tissue nippers. Sterile antibiotic dressing applied. Hemostasis was controlled through direct pressure. Post debridement measurements: 10 mm x 10 mm x 3 mm. Character of the wound post debriement is stable (74877) , The patient is to apply betadine to the wound and cover with a DSD , The patient is to cont the local wound care as directed till condition is completely healed Progress Notes * Kailash NDIAYE LDOB:1975 (48 yo M)Acc No.[id number]:07/03/2024 Progress Note Patient:?Kailash Ndiaye L Provider:?Keely Charles DPM :1975???Age:48 Y???Sex:Male David e:07/03/2024 Address:[address] [place], [place] [id number] Pcp:Peyman Dunn Subjective: * Chief Complaints: * ???Pcp- 06/30/24Painful Toe(s ) * HPI: ???Toe pain:?Nature:?aching,?bruising,?discoloration,?swelling,?tenderness,?throbbing.?Location:?Right foot , Great toe.?Duration:?since DOI ( 04/03/24 ).?Onset/Cause:?states traumatic ( pt fell chasing.a dog?).?Course:?improved , at ___95__ percent.?Aggravated by:?any pressure, standing/walking, shoes.?Treatments:?Pt went to [facility], pt had Xrays which showed fracture of toe and pt states they removed his toenail and then sutureed it back on; nail removal, local wound care, antibiotics, surgical shoe, rest, returned to sneakers without issues.? * ROS:?General/Constitutional:?Nausea?denies.?Vomiting?denies.?Hunger Thirst?denies.?Loss appetite?denies.?Chills?denies.?Fatigue?denies.?Fever?denies.?Night Sweats?denies.?Unexplained weight loss?denies.?Unexplained weight gain?denies.?HEENTM:?Dentures?denies.?Dizziness?denies.?Glasses/contacts?admits.?Retinopathy?de nies.?Blurred/double vision?denies.?TMJ?denies.?Discharge/drainage?denies.?Implants?denies.?Sore throat?denies.?Dental implants?denies.?Hard of hearing ?denies.?Difficulty chewing/swallowing/speaking?denies.?Nose bleeds?denies.?Sore mouth?denies.?Respiratory:?On Oxygen?denies.?Pneumonia/pleurisy?denies.?Bronchitis?denies.?Emphysema?denies.?C oughing?denies.?Cough blood?denies.?Shortness of breath?denies.?Wheezing?denies.?Cardiovascular:?Pacemaker?denies.?MVP?denies.?WPW?denies.?CHF?denies.?Heart attack?denies.?Septal defect?denies.?Rapid beat?denies.?Chest pain ?denies.?Atrial Fib.?denies.?Murmur/Palpitations?denies.?Gastrointestinal:?Hemorrhoids?denies.?Stomach/Abdominal pain?denies.?Dark blood stool?denies.?Irritable bowel ?denies.?Constipation?denies.?Diarrhea?denies.?Hematology:?Swelling?denies.?Clots?denies.?Varicose Veins?denies.?Bruising?denies.?Bleeding problem?denies.?Genitourinary:?Blood urine?denies.?Frequent/Painfu/urination/bladder control?denies.?Kidney stones?denies.?Infection (UTI)?denies.?Nephropathy?denies.?sex trans dis (STD)?denies.?Prostate?denies.?Musculoskeletal:?Hammertoes?denies.?Bunions?denies.?Back Pain?denies.?Muscle Cramps/ Resting?denies.?Muscle cramps / walking?denies.?Generalized aches and pains?denies.?Weakness?denies.?Integ.:?Rodriguez?denies.?Scars?denies.?Corns/calluses?denies.?Ingrown nails?denies.?Painful nails?denies.?Open Sores?denies.?Rashes?denies.?Neurologic:?Difficulty sleeping?denies.?Brain disorder?denies.?Numbness?denies.?Balance trouble?denies.?Confusion?denies.?Fainting/blackouts?denies.?Tingling?denies.?Tr emors?denies.? * Medical History:? * Surgical History:?colon hallie andrew Ostemy reversal right heel surgery colonoscopy * Hospitalization/Major Diagno stic Procedure:?ER [facility]- Broken toe 04/03/24 * Family History:?Mother: dece ased, diagnosed with Other malignant neoplasm of unspecified site.?Father: .? * Social History:?Tobacco Use:?Tobacco Use/Smoking?Are you a:?nonsmoker ?Tobacco use other than smoking?Are you an other tobacco user??No ???Drugs/Alcohol:?Drugs?Have you used drugs other than those for medical reasons in the past 12 months??Yes ?Marijuana??Yes ?Alcohol Screen?Did you have a drink containing alcohol in the past year??No ?Points?0 ?Interpretation?Negative ???Miscellaneous:?Caffeine: yes, frequency:, 3-5 cups per day. ?Children: yes. ?no Exercise. ?Marital status: . ?Occupation: Unemployed. * Medications:?TakingUrsodiol Calcium 500 MG Tablet 1 tablet with meals Orally Twice a dayTylenol , Notes: 500 mgVitamin C 500 MG Capsule as directed Orally Propranolol HCl 10 MG Tablet 1 tablet Orally Once a dayFerrous Sulfate 325 (65 Fe) MG Tablet 1 tablet Orally Three times a WeektiZANidine HCl 4 MG Tablet 1 tablet as needed Orally Three times a dayVitamin B12 1000 MCG Tablet Extended Release 1 tablet Orally Once a dayZolpidem Tartrate ER 12.5 MG Tablet Extended Release 1 tablet at bedtime as needed Orally Once a dayEliquis 5 MG Tablet 1 tablet Orally Twice a dayVitamin D3 Sertraline HCl 100 MG Tablet 1 tablet Orally Once a dayOmeprazole 20 MG Capsule Delayed Release 1 capsule 30 minutes before morning meal Orally Once a dayVitamin C 500 MG Capsule as directed Orally Folic Acid 1 MG Tablet 1 tablet Orally Once a dayCiclopirox Olamine 0.77 % Cream 1 application Externally Twice a dayCiclopirox 0.77 % Gel 1 application Externally Twice a dayTaking Ursodiol Taking Calcium 500 MG Tablet 1 tablet with meals Orally Twice a dayTaking Tylenol , Notes: 500 mgTaking Vitamin C 500 MG Capsule as directed Orally Taking Propranolol HCl 10 MG Tablet 1 tablet Orally Once a dayTaking Ferrous Sulfate 325 (65 Fe) MG Tablet 1 tablet Orally Three times a WeekTaking tiZANidine HCl 4 MG Tablet 1 tablet as needed Orally Three times a dayTaking Vitamin B12 1000 MCG Tablet Extended Release 1 tablet Orally Once a dayTaking Zolpidem Tartrate ER 12.5 MG Tablet Extended Release 1 tablet at bedtime as needed Orally Once a dayTaking Eliquis 5 MG Tablet 1 tablet Orally Twice a dayTaking Vitamin D3 Taking Sertraline HCl 100 MG Tablet 1 tablet Orally Once a dayTaking Omeprazole 20 MG Capsule Delayed Release 1 capsule 30 minutes before morning meal Orally Once a dayTaking Vitamin C 500 MG Capsule as directed Orally Taking Folic Acid 1 MG Tablet 1 tablet Orally Once a dayTaking Ciclopirox Olamine 0.77 % Cream 1 application Externally Twice a dayTaking Ciclopirox 0.77 % Gel 1 application Externally Twice a dayNot-Taking/PRNdilTIAZem HCl 120 MG Tablet as directed Orally Propranolol HCl 10 MG Tablet 1 tablet Orally Once a dayFerrous Sulfate 325 (65 Fe) MG Tablet 1 tablet Orally Three times a WeektiZANidine HCl 4 MG Tablet 1 tablet as needed Orally Three times a dayVitamin B12 1000 MCG Tablet Extended Release 1 tablet Orally Once a dayZolpidem Tartrate ER 12.5 MG Tablet Extended Release 1 tablet at bedtime as needed Orally Once a dayVitamin D3 50 MCG (1999 UT) Capsule 1 capsule Orally Once a dayEliquis 5 MG Tablet 1 tablet Orally Twice a dayOmeprazole 20 MG Capsule Delayed Release 1 capsule 30 minutes before morning meal Orally Once a daySertraline HCl 100 MG Tablet 1 tablet Orally Once a daydilTIAZem HCl 120 MG Tablet as directed Orally Medication List reviewed and reconciled with the patientNot-Taking/PRN dilTIAZem HCl 120 MG Tablet as directed Orally Not- Taking/PRN Propranolol HCl 10 MG Tablet 1 tablet Orally Once a dayNot-Taking/PRN Ferrous Sulfate 325 (65 Fe) MG Tablet 1 tablet Orally Three times a WeekNot-Taking/PRN tiZANidine HCl 4 MG Tablet 1 tablet as needed Orally Three times a dayNot-Taking/PRN Vitamin B12 1000 MCG Tablet Extended Release 1 tablet Orally Once a dayNot-Taking/PRN Zolpidem Tartrate ER 12.5 MG Tablet Extended Release 1 tablet at bedtime as needed Orally Once a dayNot-Taking/PRN Vitamin D3 50 MCG (1999 UT) Capsule 1 capsule Orally Once a dayNot-Taking/PRN Eliquis 5 MG Tablet 1 tablet Orally Twice a dayNot-Taking/PRN Omeprazole 20 MG Capsule Delayed Release 1 capsule 30 minutes before morning meal Orally Once a dayNot-Taking/PRN Sertraline HCl 100 MG Tablet 1 tablet Orally Once a dayNot-Taking/PRN dilTIAZem HCl 120 MG Tablet as directed Orally Medication List reviewed and reconciled with the patient * Allergies:?Adhesive: Allergy Remicade: Allergyyes[Allergies Verified] Objective: * Vitals:?Ht: 5ft 8in, Wt:185, BMI:28.13, Shoe size: 11, Ht-cm: 172.72 cm, Wt-k.91 kg. * Examination: ???X-Rays - IMAGING REPORT: ?Clinical Indication(s):? Evaluate for Fracture.?Views:? 3 views of Foot, AP, LO,LAT RAISED HALLUX, , RIGHT.?Findings:? normal bone?density consistent for patients age and sex, increase in soft tissue contour and density at the symptomatic site.?Fracture:?Sign of comminuted fracture identified , transverse fracture , complete , mild displaced , shaft of , distal phalange , T5 , hugh callus present, increased consolidation of fracture fragments.?Orthopedic: ?MUSCLE STRENGTH:?5/5 all groups in a symmetrical fashion , B/L.?DIGITAL DEFORMITIES:? Reveals 95% LESS pain to palpation, NO? swelling, no ecchymosis, T5, no pain with ROM of IPJ, 1st MPJ right.?Nails: ?NAILS are:?Nail growth 20% T5.?General Examination: ?GENERAL APPEARANCE:?Reveals a pleasant, alert, well-nourished, well- developed, well hydrated individual, who demonstrates proper attention to hygiene/body habitus, and is in no acute distress, Pt serves as own?historian for office visit today.?ORIENTED:?person, place, and time.?Neurological: ?SENSORY:?Neurological exam reveals intact sensorium, pain sensation normal, vibration sensation intact, pinprick sensation is normal in the lower extremities, Pt denies, anesthesia, burning, paresthesia, tingling, B/L.?DEEP TENDON REFLEXES:?Achilles, 2/4, B/L.?Vascular: ?DP PULSES(B):?3/4, B/L.?PT PULSES(B):?3/4, B/L.?CAPILLARY FILL TIME:?immediate, all digits, B/L.?TROPHIC CONDITION-TEXTURE/ELASTICITY/TURGOR/HAIR GROWTH(B):?normal, B/L.?TEMPERTURE GRADIENT(C):?warm to cool, proximal to distal, B/L.?PIGMENTATION:?normal, B/L.?EDEMA(C):?absent, B/L.?Dermatologic: ?SKIN FINDINGS:?Skin exam reveals normal color, texture, elasticity, and turgor. There are no masses, nor excrescences. The interspaces are clear, B/L.? Assessment: * Assessment: 1.?Closed displaced fracture of distal phalanx of right great toe with routine healing - S92.421D (Primary)? Plan: * Treatment: * Procedures:?Debride skin and subQ:?Open wound?Physician of record performed open wound selective debridement of devitalized necrotic/nonviable soft tissue, fibrin, exudate, epidermis, dermis, thru skin and subcutaneous fat tissue, first 20 sq cm or less, using sharp dissection with sterile 15 blade, and/or tissue nippers. Sterile antibiotic dressing applied. Hemostasis was controlled through direct pressure. Post debridement measurements: 10 mm x 10 mm x 3 mm. Character of the wound post debriement is stable (93255) , The patient is to apply betadine to the wound and cover with a DSD , The patient is to cont the local wound care as directed till condition is completely healed.? * Procedure Codes:?94407 X-RAY EXAM OF RIGHT FOOT 3V, Modifiers: 26 , RT * Preventive Medicine:? ??Counseling:?Discussion:?-13: Office or other outpatient visit for the evaluation and management of an established patient, which required a medically appropriate history and/or examination and LOW level of DECISION MAKING for: 1 STABLE ACUTE UNCOMPLICATED PROBLEM, 2 OR MORE MINOR PROBLEMS, OR 1 STABLE CHRONIC PROBLEM, THAT POSE(S) A LOW RISK FOR MORBIDITY/MORTALITY. The visit on the day of the encounter encompassed interpreting the data and educating the patient as to the nature of their condition, treatment options available according to their individual PMH, meds, allergies, and overall health/living conditions, as well as any potential risks or complications that may occur from a failure to adhere to, and participate in, the recommended course of therapy. The discussion included a complete verbal, and/or written explanation of the examination results, any x-rays taken, the proposed diagnosis, and outline of the treatment plan. A schedule for future care needs was also explained. The patient verbalized an understanding of the instructions at this time and agreed to be an active participant in their treatment. If the patient should think of any questions or concerns after the visit, I have encouraged the patient to call the office.?P.R.I.C.E.:?The patient was counseled on the use of P.R.I.C.E. and NSAIDS (if well tolerated) to aid in the recovery from their painful condition, pt to continue with a firm-soled shoe as tolerated, Discussed and reviewed the X-rays with the patient. We discussed how the findings relate to the patients symptoms/complaints. Answered any and all questions..?X-rays:?Discussed and reviewed the X-rays with the patient. We discussed how the findings relate to the patients symptoms/complaints. Answered any and all questions..? * Follow Up:?prn * Images: * Sign off status: Completed true * Provider:?Keely Charles DPM Date:?03/2024 Generated for Jo Ann ceja/Subhash/eTransmitting on:?11/15/2024 03:37 PM EST History and Physical Notes * HPI (History of Present Illness) Category Sub-Category Detail Notes Category Not es Toe pain Nature: aching, bruising , discoloration, swelling, tenderness, throbbing Location: Right foot , Great t oe Duration: since DOI ( 04/03/24 ) Onset/Cause: states traumatic ( p t fell chasing.a dog ) Course: improved , at ___95_ _ percent Aggravated by: any pressure, standi ng/walking, shoes Treatments: Pt went to [facility], p t had Xrays which showed fracture of toe and pt states they removed his toenail and then sutureed it back on; nail removal, local wound care, antibiotics, surgical shoe, rest, returned to sneakers without issues Examination Category Sub-Category Detail Notes Category Not es Neurological SENSORY: Neurological exa m reveals intact sensorium, pain sensation normal, vibration sensation intact, pinprick sensation is normal in the lower extremities, Pt denies, anesthesia, burning, paresthesia, tingling, B/L DEEP TENDON REFLEXES: Achilles, 2/4, B/L Dermatologic SKIN FINDINGS: Skin exam reveal s normal color, texture, elasticity, and turgor. There are no masses, nor excrescences. The interspaces are clear, B/L Orthopedic DIGITAL DEFORMITIES: Reveals 95% LESS pain to palpation, NO swelling, no ecchymosis, T5, no pain with ROM of IPJ, 1st MPJ right MUSCLE STRENGTH: 5/5 all groups in a symmetrical fashion , B/L General Examination GENERAL APPEARANCE: Reveals a pleasant, alert, well- nourished, well-developed, well hydrated individual, who demonstrates proper attention to hygiene/body habitus, and is in no acute distress, Pt serves as own historian for office visit today ORIENTED: person, place, and t ulises Vascular DP PULSES (B): 3/4, B/L PT PULSES (B): 3/4, B/L CAPILLARY FILL TIME: immediate, all digi ts, B/L TEMPERTURE GRADIENT (C): warm to cool, p roximal to distal, B/L TROPHIC CONDITION-TEXTURE/ELASTICITY/TURGOR/HAIR GROWTH (B): normal, B/L EDEMA (C): absent, B/L PIGMENTATION: normal, B/L Nails NAILS are: Nail growth 20% T5 X-Rays - IMAGING REPORT Findings: normal b one density consistent for patients age and sex, increase in soft tissue contour and density at the symptomatic site Fracture: Sign of comminuted f racture identified , transverse fracture , complete , mild displaced , shaft of , distal phalange , T5 , hugh callus present, increased consolidation of fracture fragments Views: 3 views of Foot, AP, LO,LAT RAISED HALLUX, , RIGHT Clinical Indication(s): Evaluate for Fra cture
--- OUTSIDE RECORDS SUMMARY | 2024-11-15 15:37 | XMS_ITS ---
[facility] Organization [facility] Address [address] [place] [address] Care Team Providers Care Truck Driver Name Role Phone Peyman Dunn Primary Care Provider Keely Treviño Unavailable [phone] Allergies Allergen (clinical drug ingredient) Drug/Non Drug Allergy documented on EMR Reaction Allergy Type Onset Date Status infliximab Remicade Unknown Drug Allergy Active Adhesive Unknown Allergy Active REASON FOR VISIT Painful Toe(s) Medications Medication SIG (Take, Route, Frequency, Duration) Notes Start Date End Date Status Ciclopirox 0.77 % 1 application Externally Twice a day for 365 days Active dilTIAZem HCl 120 MG as directed Orally Not-Taking Propranolol HCl 10 MG 1 tablet Orally On ce a day Not-Taking Ferrous Sulfate 325 (65 Fe) MG 1 tablet Orally Three times a Week Not-Taking tiZANidine HCl 4 MG 1 tablet as needed Orally Three times a day Not-Taking Omeprazole 20 MG 1 capsule 30 minutes before morning meal Orally Once a day Active Vitamin C 500 MG as directed Orally Active Folic Acid 1 MG 1 tablet Orally Once a day Active Ciclopirox Olamine 0.77 % 1 application Externally Twice a day for 30 days Active Sertraline HCl 100 MG 1 tablet Orally On ce a day Active Eliquis 5 MG 1 tablet Orally Twic e a day Active tiZANidine HCl 4 MG 1 tablet as needed Orally Three times a day Active Vitamin B12 1000 MCG 1 tablet Orally Onc e a day Active Zolpidem Tartrate ER 12.5 MG 1 tablet at bedtime as needed Orally Once a day Active Vitamin D3 Active Ferrous Sulfate 325 (65 Fe) MG 1 tablet Orally Three times a Week Active Calcium 500 MG 1 tablet with meals Orally Twice a day Active Tylenol 500 mg Active Vitamin C 500 MG as directed Orally Active Propranolol HCl 10 MG 1 tablet Orally On ce a day Active dilTIAZem HCl 120 MG as directed Orally Not-Taking Eliquis 5 MG 1 tablet Orally Twic e a day Not-Taking Omeprazole 20 MG 1 capsule 30 minutes before morning meal Orally Once a day Not-Taking Sertraline HCl 100 MG 1 tablet Orally On ce a day Not-Taking Ursodiol Active Vitamin D3 50 MCG (2000 UT) 1 capsule Orally Once a day Not-Taking Vitamin B12 1000 MCG 1 tablet Orally Onc e a day Not-Taking Zolpidem Tartrate ER 12.5 MG 1 tablet at bedtime as needed Orally Once a day Not-Taking Social History Tobacco Use: Social History Observation Description Date Details (start date - stop date) Never Smoker NA - NA Tobacco Use/Smoking Question Answer Notes Are you a: nonsmoker Tobacco use other than smoking: Question Answer Notes Are you an other tobacco user? No Vital Signs Height 5ft8in in 05/12/2024 Weight 185 lbs 05/12/2024 BMI 28.13 kg/m2 05/12/2024 Encounters Encounter Location Date Provider Diagnosis [facility] [address] [place] [address] 05/12/2024 Keely Perica Pain in right toe(s) M79.674 and Closed displaced fracture of distal phalanx of right great toe with routine healing S92.421D Assessments Encounter Date Diagnosis (ICD Code) Assessment Notes Treatment Notes Treatment Clinical Notes Section Notes 05/12/2024 Pain in right toe(s) (ICD-10 - M79.674) 05/12/2024 Closed displaced fracture of distal phalanx of right great toe with routine healing (ICD-10 - S92.421D) Plan Of Treatment Pending Test Test Name Order Date X ray : Foot, right 3V 05/12/2024 Next Appt Details Follow Up: 4 Weeks, Reason: Procedure Notes * Category Sub-Category Detail [...] of the wound post debriement is stable (43934) , The patient is to apply betadine to the wound and cover with a DSD , The patient is to cont the local wound care as directed till condition is completely healed Progress Notes * Kailash NDIAYE LDOB:1975 (48 yo M)Acc No.[id number]:05/12/2024 Progress Note Patient:?Jade Ndiayerge L Provider:?Keely Charles DPM :1975???Age:48 Y???Sex:Male David e:05/12/2024 Address:[address] [place] [address] Pcp:Peyman Dunn Subjective: * Chief Complaints: * ???Painful Toe(s) * HPI: ???Toe pain:?Nature:?aching,?bruising,?discoloration,?swelling,?tenderness,?throbbing.?Location:?Right foot , Great toe.?Duration:?since DOI ( 04/03/24 ).?Onset/Cause:?states traumatic ( pt fell chasing.a dog?).?Course:?improved , at ___75__ percent.?Aggravated by:?any pressure, standing/walking, shoes.?Treatments:?Pt went [place] [facility], pt had Xrays which showed fracture of toe and pt states they removed his toenail and then sutureed it back on; nail removal, local wound care, antibiotics, surgical shoe, rest.? * ROS:?General/Constitutional:?Nausea?denies, denies, denies.?Vomiting?denies, denies, denies.?Hunger Thirst?denies, denies, denies.?Loss appetite?denies, denies, denies.?Chills?denies, denies, denies.?Fatigue?denies, denies, denies.?Fever?denies, denies, denies.?Night Sweats?denies, denies, denies.?Unexplained weight loss?denies, denies, denies.?Unexplained weight gain?denies, denies, denies.?HEENTM:?Dentures?denies, denies, denies.?Dizziness?denies, denies, denies.?Glasses/contacts?admits, admits, admits.?Retinopathy?denies, denies, denies.?Blurred/double vision?denies, denies, denies.?TMJ?denies, denies, denies.?Discharge/drainage?denies, denies, denies.?Implants?denies, denies, denies.?Sore throat?denies, denies, denies.?Dental implants?denies, denies, denies.?Hard of hearing ?denies, denies, denies.?Difficulty chewing/swallowing/speaking denies, denies, denies.?Nose bleeds?denies, denies, denies.?Sore mouth?denies, denies, denies.?Respiratory:?On Oxygen?denies, denies, denies.?Pneumonia/pleurisy?denies, denies, denies.?Bronchitis?denies, denies, denies.?Emphysema?denies, denies, denies.?Coughing?denies, denies, denies.?Cough blood?denies, denies, denies.?Shortness of breath?denies, denies, denies.?Wheezing?denies, denies, denies.?Cardiovascular:?Pacemaker?denies, denies, denies.?MVP?denies, denies, denies.?WPW?denies, denies, denies.?CHF?denies, denies, denies.?Heart attack?denies, denies, denies.?Septal defect?denies, denies, denies.?Rapid beat denies, denies, denies.?Chest pain ?denies, denies, denies.?Atrial Fib.?denies, denies, denies.?Murmur/Palpitations?denies, denies, denies.?Gastrointestinal:?Hemorrhoids?denies, denies, denies.?Stomach/Abdominal pain?denies, denies, denies.?Dark blood stool?denies, denies, denies.?Irritable bowel ?denies, denies, denies.?Constipation?denies, denies, denies.?Diarrhea?denies, denies, denies.?Hematology:?Swelling?denies, denies, denies.?Clots?denies, denies, denies.?Varicose Veins?denies, denies, denies.?Bruising?denies, denies, denies.?Bleeding problem?denies, denies, denies.?Genitourinary:?Blood urine?denies, denies, denies.?Frequent/Painfu/urination/bladder control?denies, denies, denies.?Kidney stones?denies, denies, denies.?Infection (UTI)?denies, denies, denies.?Nephropathy?denies, denies, denies. sex trans dis (STD)?denies, denies, denies.?Prostate?denies, denies, denies.?Musculoskeletal:?Hammertoes?denies, denies, denies.?Bunions?denies, denies, denies.?Back Pain?denies, denies, denies.?Muscle Cramps/ Resting?denies, denies, denies.?Muscle cramps / walking?denies, denies, denies.?Generalized aches and pains?admits, admits, admits.?Weakness?denies, denies, denies.?Integ.:?Rodriguez?denies, denies, denies.?Scars?denies, denies, denies.?Corns/calluses?denies, denies, denies.?Ingrown nails?denies, denies, denies.?Painful nails?denies, denies, denies.?Open Sores?admits, admits, admits.?Rashes?denies, denies, denies.?Neurologic:?Difficulty sleeping?denies, denies, denies.?Brain disorder?denies, denies, denies.?Numbness?denies, denies, denies.?Balance trouble?denies, denies, denies.?Confusion?denies, denies, denies.?Fainting/blackouts?denies, denies, denies.?Tingling?denies, denies, denies.?Tremors?denies, denies, denies.? * Medical History:? * Surgical History:?colon hallie andrew Ostemy reversal right heel surgery colonoscopy * Hospitalization/Major Diagno stic Procedure:?[place] [facility] 04/03[place] * Family History:?Mother: dece ased, diagnosed with Other malignant neoplasm of unspecified site.?Father: .? * Social History:?Tobacco Use:?Tobacco Use/Smoking?Are you a:?nonsmoker ?Tobacco use other than smoking?Are you an other tobacco user??No ???Miscellaneous:?Caffeine: yes, frequency:, 3-5 cups per day. [...] Orally Once a dayVitamin D3 50 MCG (2000 UT) Capsule 1 capsule Orally Once a [...] Once a dayNot-Taking/PRN Vitamin D3 50 MCG (2000 UT) Capsule 1 capsule Orally Once a [...] Allergy Remicade: Allergyyes[Allergies Verified] Objective: * Vitals:?Ht: 5ft8in, Wt:185, BMI:28.13, Shoe size: 11, Ht-cm: 172.72 [...] a symmetrical fashion , B/L.?DIGITAL DEFORMITIES:? Reveals 75% LESS pain to palpation, NO? swelling, no ecchymosis, T5, no pain with ROM of IPJ, 1st MPJ right.?Nails: ?NAILS are:?Absent nail T5.?General Examination: ?GENERAL APPEARANCE:?Reveals a pleasant, alert, [...] tingling, B/L.?DEEP TENDON REFLEXES:?Achilles, 2/4, B/L.?Vascular: ?DP PULSES:?3/4, B/L.?PT PULSES:?3/4, B/L.?CAPILLARY FILL TIME:?immediate, all digits, B/L.?SKIN TEMPERTURE GRADIENT OF THE LOWER EXTERMITIES:?warm to cool, proximal to distal, B/L.?HAIR GROWTH/TEXTURE/ELASTICITY/TURGOR:?normal, B/L.?PIGMENTATION:?normal, B/L.?EDEMA:?absent, B/L.?Dermatologic: ?ULCER:?LOCATION, dorsal T5-resolved.? Assessment: * Assessment: 1.?Pain in right toe(s) - M7 9.674?2.?Closed displaced fracture of distal phalanx of right great toe with routine healing - S92.186D (Primary)? Plan: * Treatment: * Procedures:?Debride skin [...] of the wound post debriement is stable (80714) , The patient is to apply betadine to the wound and cover with a DSD , The patient is to cont the local wound care as directed till condition is completely healed.? * Procedure Codes:?91366 X-RAY EXAM OF RIGHT FOOT 3V, Modifiers: [...] the recovery from their painful condition, pt begin to transition to a firm-soled shoe as tolerated, Discussed and reviewed the X-rays with the patient. We discussed how the findings relate to the patients symptoms/complaints. Answered any and all questions..?X-rays:?Discussed and reviewed the X-rays with the patient. We discussed how the findings relate to the patients symptoms/complaints. Answered any and all questions..? * Follow Up:?4 Weeks * Images: * Sign off status: Completed true * Provider:?Keely Charles DPM Date:? Generated for Printclifton ceja/Subhash/eTransmitting on:?11/15/2024 03:37 PM EST History and Physical Notes * HPI (History of Present Illness) Category Sub-Category Detail Notes Category Not es Toe pain Nature: aching, bruising , discoloration, swelling, tenderness, throbbing Location: Right foot , Great t oe Duration: since DOI ( 04/03/24 ) Onset/Cause: states traumatic ( p t fell chasing.a dog ) Course: improved , at ___75_ _ percent Aggravated by: any pressure, standi ng/walking, shoes Treatments: Pt went to [facility], p t had Xrays which showed fracture of toe and pt states they removed his toenail and then sutureed it back on; nail removal, local wound care, antibiotics, surgical shoe, rest Examination Category Sub-Category Detail Notes Category Not es Neurological SENSORY: Neurological exa m reveals intact sensorium, pain sensation normal, vibration sensation intact, pinprick sensation is normal in the lower extremities, Pt denies, anesthesia, burning, paresthesia, tingling, B/L DEEP TENDON REFLEXES: Achilles, 2/4, B/L Dermatologic ULCER: LOCATION, dorsal T5-resolved Orthopedic DIGITAL DEFORMITIES: Reveals 75% LESS pain to palpation, NO swelling, no [...] B/L PIGMENTATION: normal, B/L Nails NAILS are: Absent nail T5 X-Rays - IMAGING REPORT Findings: normal [...]
--- OUTSIDE RECORDS SUMMARY | 2024-11-15 15:37 | XMS_ITS | Patient Health Record ---
Author Organization [facility] Address [address] [place] [address] Care Team Providers Care Um Specialist Name Role Phone Peyman Dunn Primary Care Provider Keely Treviño Unavailable [phone] Allergies Allergen (clinical drug ingredient) Drug/Non Drug Allergy documented on EMR Reaction Allergy Type Onset Date Status infliximab Remicade Unknown Drug Allergy Active Adhesive Unknown Allergy Active Reason For Referral No Information Medications Medication SIG (Take, Route, Frequency, Duration) Notes Start Date End Date Status Tylenol 500 mg Active Vitamin C 500 MG as directed Orally Active Propranolol HCl 10 MG 1 tablet Orally On ce a day Active Ferrous Sulfate 325 (65 Fe) MG 1 tablet Orally Three times a Week Active Ursodiol Active Calcium 500 MG 1 tablet with meals Orally Twice a day Active Vitamin B12 1000 MCG 1 tablet Orally Onc e a day Not-Taking Zolpidem Tartrate ER 12.5 MG 1 tablet at bedtime as needed Orally Once a day Not-Taking Vitamin D3 50 MCG (2000 UT) 1 capsule Orally Once a day Not-Taking Eliquis 5 MG 1 tablet Orally Twic e a day Not-Taking tiZANidine HCl 4 MG 1 tablet as needed Orally Three times a day Active Vitamin B12 1000 MCG 1 tablet Orally Onc e a day Active Propranolol HCl 10 MG 1 tablet [...] Twice a day for 365 days Active Eliquis 5 MG 1 tablet Orally Twic e a day Active Vitamin D3 Active Sertraline HCl 100 MG 1 tablet Orally On ce a day Active Omeprazole 20 MG 1 capsule 30 minutes before morning meal Orally Once a day Active dilTIAZem HCl 120 MG as directed Orally Not-Taking Omeprazole 20 MG 1 capsule 30 minutes before morning meal Orally Once a day Not-Taking Sertraline HCl 100 MG 1 tablet Orally On ce a day Not-Taking dilTIAZem HCl 120 MG as directed Orally Not-Taking Zolpidem Tartrate ER 12.5 MG 1 tablet at bedtime as needed Orally Once a day Active Social History Tobacco Use: [...] Are you an other tobacco user? No Problems Problem Type SNOMED Code ICD Code Onset Dates Problem Status W/U Status Risk Notes Problem [id number] Ulcer of right foot with fat layer exposed (L97.512) Active confirmed Vital Signs Blood pressure diastolic 79 mm Hg 04/14/2024 Height 5ft 8in in 07/03/2024 Blood pressure systolic 129 mm Hg 04/14/2024 Weight 185 lbs 07/03/2024 BMI 28.13 kg/m2 07/03/2024 Encounters Encounter [facility] Date [facility] [address] [facility]/30/2023 Keely Perica Ingrown nail L60.0 and Tinea pedis of both feet B35.[address] [address] 12/14/2023 Keely Perica Fungal infection of nail B35.1 ; Pain in right toe(s) M79.674 and Pain in left toe(s) M79.[address] [address] 04/04/2024 Keely Perica Pain in right toe(s) M79.674 ; Open displaced fracture of distal phalanx of right great toe, initial encounter S92.421B and Contusion of right great toe with damage to nail, initial encounter S90.211A [facility] [address] [address] 04/14/2024 Keely Perica Pain in right toe(s) M79.674 ; Open displaced fracture of distal phalanx of right great toe, initial encounter S92.421B ; Contusion of right great toe with damage to nail, initial encounter S90.211A and Ulcer of right foot with fat layer exposed L97.[address] [facility] [address] 05/12/2024 Keely Perica Pain in right toe(s) M79.674 and Closed displaced fracture of distal phalanx of right great toe with routine healing S92.421D [facility] [address] 07/03/2024 Keely Perica Closed displaced fracture of distal phalanx of right great toe with routine healing S92.421D [facility] [address] 04/04/2024 Keely Perica [address] [address] 04/13/2024 Keely Perica Assessments Encounter Date Diagnosis (ICD Code) Assessment Notes Treatment Notes Treatment Clinical Notes Section Notes 11/30/2023 Ingrown nail (ICD-10 - L60.0) 11/30/2023 Tinea pedis of both feet (ICD-10 - B35.3) 12/14/2023 Pain in right toe(s) (ICD-10 - M79.674) 12/14/2023 Fungal infection of nail (ICD-10 - B35.1) Rx management (4) 04/04/2024 Pain in right toe(s) (ICD-10 - M79.674) 04/04/2024 Open displaced fracture of distal phalanx of right great toe, initial encounter (ICD-10 - S92.421B) 04/14/2024 Pain in right toe(s) (ICD-10 - M79.674) 05/12/2024 Pain in right toe(s) (ICD-10 - M79.674) 05/12/2024 Closed displaced fracture of distal phalanx of right great toe with routine healing (ICD-10 - S92.421D) 07/03/2024 Closed displaced fracture of distal phalanx of right great toe with routine healing (ICD-10 - S92.421D) 04/14/2024 Open displaced fracture of distal phalanx of right great toe, initial encounter (ICD-10 - S92.421B) 04/14/2024 Contusion of right great toe with damage to nail, initial encounter (ICD-10 - S90.211A) 04/04/2024 Contusion of right great toe with damage to nail, initial encounter (ICD-10 - S90.211A) 12/14/2023 Pain in left toe(s) (ICD-10 - M79.675) 04/14/2024 Ulcer of right foot with fat layer exposed (ICD-10 - L97.512) Plan Of Treatment Pending Test Test Name Order Date X ray : Foot, right 3V 04/04/2024 X ray : Foot, right 3V 05/12/2024 X ray : Foot, right 3V 07/03/2024 Insurance Providers Payer Name Payer Address Payer Phone Subscriber Number Group Number Insured Name Patient Relationship to Insured Coverage Start Date Coverage End Date [facility] [employer] Claims [address] [place] [address] [phone] [id number] Kailash Ndiaye Self - patient is the insured Medical (General) History Medical History History ICD Code Anxiety Broken bones Crohns disease Colitis Depression Hiatal hernia High blood pressure Poor circulation Chicken pox Transfusions PSC Surgical History Surgery Date(Month/Year) colon removed Ostemy reversal right heel surgery colonoscopy Hospitalization History Reason Date(Month/Year) ER [facility]- Broken toe 04/03/24
--- OUTSIDE RECORDS SUMMARY | 2024-11-15 15:38 | XMS_ITS | Patient Health Record ---
Author Organization [facility] Address [address] [place] [address] Care Team Providers Care Chocolate Dipper Name Role Phone Peyman Dunn MD Primary Care Provider Arturo Nelson Unavailable [phone] Nivia Hidalgo Unavailable Unavailable REASON FOR REFERRAL No Information SOCIAL HISTORY Sex Assigned At : Social History Observation Description Sex Assigned At Unknown Encounters Encounter Location Date Provider Diagnosis [facility] [address] [place] [address] 02/08/[address] [facility] [address] [place] [address] 02/07/2024 Arturo Baxter PLAN OF TREATMENT No Information Insurance Providers Payer Name Payer Address Payer Phone Subscriber Number Group Number Insured Name Patient Relationship to Insured Coverage Start Date Coverage End Date [facility] [employer] [address] [place] [phone] [id number] GIOVANNA BUTLER Self - patient is the insured
--- OUTSIDE RECORDS SUMMARY | 2024-11-15 15:38 | XMS_ITS ---
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 Role Phone Peyman Dunn Primary Care Provider Keely Treviño Unavailable [phone] Allergies Allergen (clinical drug ingredient) Drug/Non Drug Allergy documented on EMR Reaction Allergy Type Onset Date Status infliximab Remicade Unknown Drug Allergy Active Adhesive Unknown Allergy Active REASON FOR VISIT Pcp-02/17, Pcp-12/18, Painful Toe(s) Medications Medication SIG (Take, Route, Frequency, Duration) Notes Start Date End Date Status Vitamin D3 50 MCG (1999) 1 capsule Orally Once a day Not-Taking Eliquis 5 MG 1 tablet Orally Twic e a day Not-Taking Omeprazole 20 MG 1 capsule 30 minutes before morning meal Orally Once a day Not-Taking Sertraline HCl 100 MG 1 tablet Orally On ce a day Not-Taking dilTIAZem HCl 120 MG as directed Orally Not-Taking tiZANidine HCl 4 MG 1 tablet as needed Orally Three times a day Not-Taking Vitamin B12 1000 MCG 1 tablet Orally Onc e a day Not-Taking Zolpidem Tartrate ER 12.5 MG 1 tablet at bedtime as needed Orally Once a day Not-Taking Propranolol HCl 10 MG 1 tablet Orally On ce a day Not-Taking Ferrous Sulfate 325 (65 Fe) MG 1 tablet Orally Three times a Week Not-Taking Vitamin C 500 MG as directed [...] morning meal Orally Once a day Active Zolpidem Tartrate ER 12.5 MG 1 tablet at bedtime as needed Orally Once a day Active Vitamin C 500 MG as directed Orally Active Propranolol HCl 10 MG 1 tablet Orally On ce a day Active Ferrous Sulfate 325 (65 Fe) MG 1 tablet Orally Three times a Week Active tiZANidine HCl 4 MG 1 tablet as needed Orally Three times a day Active Vitamin B12 1000 MCG 1 tablet Orally Onc e a day Active Ursodiol Active Calcium 500 MG 1 tablet with meals Orally Twice a day Active Tylenol 500 mg Active Social History Tobacco Use: Social History Observation Description Date Details (start date - stop date) Never Smoker NA - NA Tobacco Use/Smoking Question Answer Notes Are you a: nonsmoker Tobacco use other than smoking: Question Answer Notes Are you an other tobacco user? No Problems Problem Type SNOMED Code ICD Code Onset Dates Problem Status W/U Status Risk Notes Problem [id number] Ulcer of right foot with fat layer exposed (L97.512) Active confirmed Vital Signs Height 5ft8in in 04/14/2024 Weight 183 lbs 04/14/2024 BMI 27.82 kg/m2 04/14/2024 Blood pressure systolic 129 mm Hg 04/14/20 24 Blood pressure diastolic 79 mm Hg 024 Encounters Encounter Location Date Provider Diagnosis [facility] [address] [place] [address] 04/14/2024 Keely Charles Pain in right toe(s) M79.674 ; Open displaced fracture of distal phalanx of right great toe, initial encounter S92.421B ; Contusion of right great toe with damage to nail, initial encounter S90.211A and Ulcer of right foot with fat layer exposed L97.512 Assessments Encounter Date Diagnosis (ICD Code) Assessment Notes Treatment Notes Treatment Clinical Notes Section Notes 04/14/2024 Pain in right toe(s) (ICD-10 - M79.674) 04/14/2024 Open displaced fracture of distal phalanx of right great toe, initial encounter (ICD-10 - S92.421B) 04/14/2024 Contusion of right great toe with damage to nail, initial encounter (ICD-10 - S90.211A) 04/14/2024 Ulcer of right foot with fat layer exposed (ICD-10 - L97.512) Plan Of Treatment Next Appt Details Follow Up: 3 Weeks, Reason: Procedure Notes * Category Sub-Category [...] of the wound post debriement is stable (86030) , The patient is to apply betadine to the wound and cover with a DSD , The patient is to cont the local wound care as directed till condition is completely healed Progress Notes * Kailash NDIAYE LDOB:1975 (48 yo M)Acc No.[id number]:04/14/2024 Progress Notes Patient:?Kailash Ndiaye L Provider:?Keely Charles DPM :1975???Age:48 Y???Sex:Male David e:04/14/2024 Address:[address] [place] [address] Pcp:Peyman Dunn Subjective: * Chief Complaints: * ???Pcp-02/17Pcp-12/18Painful Toe(s) * HPI: ???Toe pain:?Nature:?aching,?bruising,?discoloration,?swelling,?tenderness,?throbbing.?Location:?Right foot , Great toe.?Duration:?since DOI ( 04/03/24 ).?Onset/Cause:?states traumatic ( pt fell chasing.a dog?).?Aggravated by:?any pressure, standing/walking, shoes.?Treatments:?Pt went to [facility], pt had Xrays which showed fracture of toe and pt states they removed his toenail and then sutureed it back on; nail removal, local wound care, antibiotics, surgical shoe, rest.? * ROS:?General/Constitutional:?Nausea?denies, denies.?Vomiting?denies, denies.?Hunger Thirst?denies, denies.?Loss appetite?denies, denies.?Chills?denies, denies.?Fatigue?denies, denies.?Fever?denies, denies.?Night Sweats denies, denies.?Unexplained weight loss?denies, denies.?Unexplained weight gain?denies, denies.?HEENTM:?Dentures?denies, denies.?Dizziness?denies, denies.?Glasses/contacts?admits, admits.?Retinopathy?denies, denies.?Blurred/double vision?denies, denies.?TMJ?denies, denies.?Discharge/drainage?denies, denies.?Implants?denies, denies.?Sore throat?denies, denies.?Dental implants?denies, denies.?Hard of hearing ?denies, denies.?Difficulty chewing/swallowing/speaking?denies, denies.?Nose bleeds?denies, denies.?Sore mouth?denies, denies.?Respiratory:?On Oxygen?denies, denies.?Pneumonia/pleurisy?denies, denies.?Bronchitis?denies, denies.?Emphysema?denies, denies.?Coughing?denies, denies.?Cough blood?denies, denies.?Shortness of breath?denies, denies.?Wheezing?denies, denies.?Cardiovascular:?Pacemaker?denies, denies.?MVP?denies, denies.?WPW?denies, denies.?CHF?denies, denies.?Heart attack?denies, denies.?Septal defect?denies, denies.?Rapid beat?denies, denies.?Chest pain ?denies, denies.?Atrial Fib.?denies, denies.?Murmur/Palpitations?denies, denies.?Gastrointestinal:?Hemorrhoids?denies, denies.?Stomach/Abdominal pain?denies, denies.?Dark blood stool?denies, denies.?Irritable bowel ?denies, denies.?Constipation?denies, denies.?Diarrhea?denies, denies.?Hematology:?Swelling?denies, denies.?Clots?denies, denies.?Varicose Veins?denies, denies.?Bruising?denies, denies.?Bleeding problem?denies, denies.?Genitourinary:?Blood urine?denies, denies.?Frequent/Painfu/urination/bladder control?denies, denies.?Kidney stones?denies, denies.?Infection (UTI)?denies, denies.?Nephropathy?denies, denies.?sex trans dis (STD)?denies, denies.?Prostate?denies, denies.?Musculoskeletal:?Hammertoes?denies, denies.?Bunions?denies, denies.?Back Pain?denies, denies.?Muscle Cramps/ Resting?denies, denies.?Muscle cramps / walking?denies, denies.?Generalized aches and pains?admits, admits.?Weakness?denies, denies.?Integ.:?Rodriguez?denies, denies.?Scars?denies, denies.?Corns/calluses?denies, denies.?Ingrown nails?denies, denies.?Painful nails?denies, denies.?Open Sores?admits, admits.?Rashes?denies, denies.?Neurologic:?Difficulty sleeping?denies, denies.?Brain disorder?denies, denies.?Numbness?denies, denies.?Balance trouble?denies, denies.?Confusion?denies, denies.?Fainting/blackouts?denies, denies.?Tingling?denies, denies.?Tremors?denies, denies.? * Medical History:? * Surgical History:?colon hallie andrew Ostemy reversal right heel surgery colonoscopy * Hospitalization/Major Diagno stic Procedure:?ER C- Broken toe 04/03/24 * Family History:?Mother: dece ased, diagnosed with Other malignant neoplasm of unspecified site.?Father: .? * Social History:?Tobacco Use:?Tobacco Use/Smoking?Are you a:?nonsmoker ?Tobacco use other than smoking?Are you an other tobacco user??No * Medications:?TakingUrsodiol Calcium 500 MG Tablet 1 [...] Remicade: Allergyyes[Allergies Verified] Objective: * Vitals:?Ht: 5ft8in, Wt:183, BMI:27.82, Shoe size: 11, BP:129/79 mm Hg, Ht-cm: 172.72 cm, Wt-k.01 kg. * Examination: ???Orthopedic: ?MUSCLE STRENGTH:?5/5 all groups in a symmetrical fashion , B/L.?DIGITAL DEFORMITIES:? Reveals pain to palpation, LESS swelling, no ecchymosis, T5.?Nails: ?NAILS are:?Absent nail T5.?General Examination: ?GENERAL APPEARANCE:?Reveals [...] B/L.?HAIR GROWTH/TEXTURE/ELASTICITY/TURGOR:?normal, B/L.?PIGMENTATION:?normal, B/L.?EDEMA:?absent, B/L.?Dermatologic: ?ULCER:?LOCATION, dorsal T5 SIZE, 10 mm X 12 mm X 3mm, BASE, fibro- granular, RIM, hyperkeratotic, UNDERMINING, mild, TRACKING, Sub Q with Fat layer exposed, DRAINAGE, serosanguineous, moderate, NECROTIC TISSUE, loosely-adherent, yellow slough, MALODOR, absent, CALOR, absent, ERYTHEMA, absent.? Assessment: * Assessment: 1.?Pain in right toe(s) - M7 9.674?2.?Contusion of right great toe with damage to nail, initial encounter - S90.211A?3.?Open displaced fracture of distal phalanx of right great toe, initial encounter - S92.421B (Primary)?4.?Ulcer of right foot with fat layer exposed - L97.512? Plan: * Treatment: * Procedures:?Debride skin and [...] of the wound post debriement is stable (56150) , The patient is to apply betadine to the wound and cover with a DSD , The patient is to cont the local wound care as directed till condition is completely healed.? * Procedure Codes:?55983 DEBRI DE SKIN/TISSUE, Modifiers: XS * Preventive Medicine:? ??Counseling:?Discussion:?-13: Office or other [...] the recovery from their painful condition, pt should wear Open toe firm-soled post-op surgical shoe, Discussed and reviewed the X-rays with the patient. We discussed how the findings relate to the patients symptoms/complaints. Answered any and all questions..? * Follow Up:?3 Weeks * Images: * Sign off status: Completed true * Provider:?Keely Charles DPM Date:? Generated for Jo Ann ceja/Subhash/Franc on:?11/15/2024 03:37 PM EST History and Physical Notes * HPI (History of Present Illness) Category Sub-Category Detail Notes Category Not es Toe pain Nature: aching, bruising , discoloration, swelling, tenderness, throbbing Location: Right foot , Great t oe Duration: since DOI ( 04/03/24 ) Onset/Cause: states traumatic ( p t fell chasing.a dog ) Aggravated by: any pressure, standi ng/walking, shoes Treatments: Pt went to [facility], p t had Xrays which showed [...] Achilles, 2/4, B/L Dermatologic ULCER: LOCATION, dorsal T5 SIZE, 10 mm X 12 mm X 3mm, BASE, fibro-granular, RIM, hyperkeratotic, UNDERMINING, mild, TRACKING, Sub Q with Fat layer exposed, DRAINAGE, serosanguineous, moderate, NECROTIC TISSUE, loosely-adherent, yellow slough, MALODOR, absent, CALOR, absent, ERYTHEMA, absent Orthopedic DIGITAL DEFORMITIES: Reveals bing n to palpation, LESS swelling, no ecchymosis, T5 MUSCLE STRENGTH: 5/5 all groups in a [...]
--- OUTSIDE RECORDS SUMMARY | 2024-11-15 15:38 | XMS_ITS ---
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
[2024-11-15 16:28] LABS: MANUAL DIFF FLAG NO
[2024-11-15 17:05] LABS: Basophils Absolute Auto 0.1 X10*3/uL (0.0-0.2); Eosinophils Absolute Auto 0.5 X10*3/uL (0.0-0.4); Hematocrit 45.5 % (42.0-52.0); Hemoglobin 14.9 g/dl (14.0-18.0); Imm Gran Abs Auto 0.04 X10*3/uL (0.00-0.03); Imm Gran Pct Auto 0.6 % (0.0-0.4); Lymphocytes Absolute Auto 2.1 X10*3/uL (1.2-4.9); Lymphocytes Percent Auto 29.8 % (20-40); Mean Corpuscular HGB Conc 32.7 g/dl (31.0-36.0); Mean Corpuscular Hemoglobin 31.7 pg (27.0-33.0); Mean Corpuscular Volume 96.8 fL (80.0-98.0); Mean Platelet Volume 11.5 fL (9.4-12.4); Monocytes Absolute Auto 0.5 X10*3/uL (0.1-1.2); Neutrophils Absolute Auto 3.8 x10*3/uL (2.0-8.3); Neutrophils Percent Auto 54.6 % (45-73); Platelet Count 213 X10*3/uL (160-400); White Blood Count 6.9 X10*3/uL (4.8-10.8)
[2024-11-15 18:00] LABS: Alanine Aminotransferase 65 U/L (0-40); Albumin Level 3.9 g/dL (3.5-5.0); Alkaline Phosphatase 260 U/L (39-117); Anion Gap 11 (12-20); Aspartate Amino Transferase 60 U/L (5-37); Bilirubin Total 1.5 mg/dL (0.0-1.0); Blood Urea Nitrogen 10 mg/dL (9-16); Calcium 9.1 mg/dL (8.4-10.2); Carbon Dioxide 27 mmol/L (22-29); Chloride 110 mmol/L (96-108); Estimated Glomerular Filt Rate > 60; Glucose Random 99 mg/dL (60-115); Potassium 3.8 mmol/L (3.3-5.1); Sodium 144 mmol/L (135-145); Total Protein 8.6 g/dL (6.5-8.0)
[2024-11-16 08:01] LABS: Syphilis Screen Nonreactive (Nonreactive)
[2024-11-17 21:17] LABS: TS Negative Control Passed; TS Panel A 0; TS Panel B 1; TS Positive Control Passed; TSpotTB Negative (Negative)
[2024-11-18 17:18] LABS: Angiotensin Converting Enzyme 39.1 U/L (9-67)
[2024-11-18 18:18] LABS: Lysozyme, Serum 9.7 mcg/mL (5.0-11.0)
[2024-11-20 13:37] LABS: Toxoplasma IgG Antibody <7.20 IU/mL; Toxoplasma IgM Antibody <8.00 AU/mL; Toxoplasma Interpretation Y
[2024-11-20 15:27] LABS: ANA Titer 2 1:40 titer; Anti Nuclear Antibody Pattern Nuclear, Nucleolar; Anti Nuclear Antibody Screen POSITIVE (NEGATIVE)
== END 2024-11-15 15:35 | disposition home or self-care (01) ==
LOC: HO.LAB 15:34
PROVIDERS: PCP Internal Medicine; Visit Provider Ophthalmology
DX: H30.93 Unspecified chorioretinal inflammation, bilateral (principal)
CPT/HCPCS: 80053; 82164; 85025; 85549; 86038; 86039; 86481; 86698; 86777; 86778; 86780

== ENCOUNTER 2024-12-25 10:58 | Outpatient (REF) | payer OTHER, SELFPAY ==
--- NOTE | ~2024-12-25 | XR_ITS ---
CLINICAL HISTORY: M54.2 - Cervicalgia 3 views cervical spine Comparison: None Findings: Normal alignment. No acute fractures or dislocation. Moderate degenerative disc disease at C5-C6. Mild degenerative disc disease at C4-C5. Prevertebral soft tissues within normal limits. Coarse calcifications within the right anterolateral neck. These do not appear to be of carotid origin. IMPRESSION: No acute findings. This document has been electronically signed by: Cammy Bee MD on 12/26/2024 15:47:07
--- OUTSIDE RECORDS SUMMARY | 2024-12-25 13:49 | XMS_ITS | Clinical Summary ---
Author Organization [facility], Address [address] [place] [address] [place] [address] Phone Care Team Providers Care Programmer Analyst Name Role Phone Peyman Dunn MD Primary Care Provider [phone] Allergies Active Allergy Reactions Criticality Noted Date [...] 11/23/2019 Immunizations Name Administration Dates Next Due [facility] SARS-COV-2 07/11/2021 Family History Medical [...] series) 09/21 Influenza Vaccine (#1) 2024 Insurance , [facility] [address] [address] [place] [id number] [facility] [address] [address] [place] [id number] [address] [place] [id number] Care Teams Programmer Analyst Relationship Specialty Start Date End Date [facility] [place] [address] [place] PCP - General 08/01/19
--- OUTSIDE RECORDS SUMMARY | 2024-12-25 13:49 | XMS_ITS | Clinical Summary ---
Author Organization [facility] Address [address] [facility] [address] [place] [address] Care Team Providers Care Hand Straightener Name Role Phone Unavailable Primary Care Provider [...] Date of Phone Billing Address Personal/Family [id number] [place] [address] [facility] MEDICAID STAND ADULT [facility]
== END 2024-12-25 10:59 | disposition home or self-care (01) ==
LOC: HO.XRAY 10:58
PROVIDERS: PCP Internal Medicine; Visit Provider Internal Medicine
DX: M54.2 Cervicalgia (principal); K76.0 Fatty (change of) liver, not elsewhere classified; E78.00 Pure hypercholesterolemia, unspecified; K51.013 Ulcerative (chronic) pancolitis with fistula; K21.9 Gastro-esophageal reflux disease without esophagitis; I10 Essential (primary) hypertension; Z86.718 Personal history of other venous thrombosis and embolism; Z79.01 Long term (current) use of anticoagulants
CPT/HCPCS: 72040; 96127; 99212

== ENCOUNTER 2024-12-25 10:58 | Outpatient (AMB) | payer OTHER, SELFPAY ==
[2024-12-25 11:04] VITALS: BP 120/88; PULSE 103; TEMP 36.3; O2SAT 97; BMI 28.8
--- NOTE | 2024-12-25 11:04 | MHC.PC.OV ---
Vital Signs 12/25/24 11:04 Height 5 ft 8 in Weight 189 lb 4 oz BMI 28.8 BP 120/88 Blood Pressure Location Lt brachial Position Sitting Pulse 103 H Pulse Source Pulse Oximeter Temp 97.3 F Temp Source Temporal Artery Scan Pulse Oximetry (%) 97 Oxygen Delivery Method Room Air Intake Visit Reasons: UC, PSC Allergies azathioprine [From IMURAN] Allergy (Unknown, Verified 12/25/24 11:04) PANCREASE SWELLING infliximab [From REMICADE] Allergy (Unknown, Verified 12/25/24 11:04) DIFFICULTY BREATHING mannitol [Reclast] Allergy (Unknown, Verified 12/25/24 11:04) joint pain silver [From TEGADERM AG MESH] Allergy (Unknown, Verified 12/25/24 11:04) BLISTERS water for injection,sterile [Reclast] Allergy (Unknown, Verified 12/25/24 11:04) joint pain zoledronic acid [Reclast] Allergy (Unknown, Verified 12/25/24 11:04) joint pain Medication List - Last Reconciled 12/25/24 by Peyman Dunn MD acetaminophen (Tylenol Extra Strength) 500 mg PO Q6H PRN apixaban (Eliquis) 5 mg PO BID 90 days ascorbic acid (vitamin C) 500 mg PO DAILY atorvastatin 20 mg PO BEDTIME calcium citrate 250 mg PO DAILY carboxymethylcellulose sodium 0.5% (Lubricant Eye Drops) 1 drp ophthalmic (eye) BID PRN cholecalciferol (vitamin D3) 50 mcg PO DAILY 90 days ciclopirox 0.77% 0.77 appl topical BID cyanocobalamin (vitamin B-12) 1,000 mcg PO DAILY 90 days ferrous sulfate (Feosol) 325 mg PO DAILY folic acid 1 mg PO DAILY ketorolac 0.5% 0.5 drps ophthalmic (eye) DAILY omeprazole 20 mg PO DAILY 90 days propranolol 20 mg PO BID 90 days propranolol 10 mg PO BID sertraline 100 mg PO DAILY 90 days sodium phosphates 19-7 gram/118 mL (Fleet Enema) Take one enema the night before the procedure, and the second enema 1h before coming for the procedure tizanidine 4 mg PO BID PRN 90 days ursodiol (RADHA Forte) 500 mg PO TID 90 days zolpidem ER (Ambien CR) 12.5 mg PO BEDTIME PRN Tobacco use date assessed: 12/25/24 Dental Screening Dental Screen Date: 12/25/24 Did you have a dental visit in the last 12 months?: Yes Did you have a dental problem in the last 6 months where you did not have access to dental care?: No Was dental information given to patient?: Patient has dentist HPI UC, PSC HPI Details ophthalmology advised vitamin A but hold off until liver problem PFSH Medical History (Updated 12/25/24 @ 11:49 by Peyman Dunn MD) Elevated LFTs Hx of sigmoidoscopy DVT (deep venous thrombosis) Gastrointestinal fistula Small bowel perforation DVT (deep venous thrombosis) Irritable bowel syndrome 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 Mother Osteoporosis Heart problem HTN (hypertension) Maternal Aunt Breast cancer Social History Household Members: None Housing: House Are you a primary career development counselor to a significant other at home: No Do you presently have visiting nurse or other home services: Yes Alcohol intake: current Alcohol intake frequency: does not drink Patient Tobacco Use Status: Former Tobacco user Tobacco use type: Cigarette e-Cigarette/Vaping Use: Never Used Second Hand Smoke Exposure: No Substance Use Type: Marijuana service: No Current occupational status: disabled Cognitive needs: No Hearing needs: No Vision needs: Yes Questionnaire PHQ-9 Over the last 2 weeks, how often have you been bothered by any of the following problems? 1. Little interest or pleasure in doing things: several days 2. Feeling down, depressed, or hopeless: more than half the days 3. Trouble falling or staying asleep, or sleeping too much: several days 4. Feeling tired or having little energy: nearly every day 5. Poor appetite or overeating: not at all 6. Feeling bad about yourself - or that you are a failure or have let yourself or your family down: nearly every day 7. Trouble concentrating on things, such as reading the newspaper or watching television: nearly every day 8. Moving or speaking so slowly that other people could have noticed. Or the opposite - being so fidgety or restless that you have been moving around a lot more than usual: nearly every day 9. Thoughts that you would be better off or of hurting yourself in some way: not at all Total score: 16 Depression Screening Interpretation: Positive Depression Screening Done: Yes 07598 - PHQ-9 Billing: Yes Source: Developed by Drs. Arturo Guerrero, Aubrie Burciaga, Nickolas Alejo and colleagues, with an educational lacie from [employer]. Thrive Questionnaire Date Thrive assessed: 12/25/24 I am a: Patient What is your living situation today?: I have a place to live, but I am worried about losing it in the future Within the past 12 months, did the food you bought not last and you didn't have the money to get more?: Never true Within the past 12 months, did you worry whether your food would run out before you got money to buy more?: Sometimes True Do you have trouble paying for medicines?: Yes Do you have trouble getting transportation to medical appointments?: Yes Do you have trouble paying your heating and electricity bill?: Yes Do you have trouble taking care of your child, family member or friend?: Yes Do you have trouble with day-to-day activities such as bathing, preparing meals, shopping, managing finances, etc.?: Yes Are you currently unemployed and looking for a job?: Yes Are you interested in more education?: No Currently or been in a relationship where the following occur: I choose not to answer THRIVE Score: 4 AUDIT C Alcohol Use Questionnaire (AUDIT-C) 1. How often do you have a drink containing alcohol?: Never 3. How often do you have six or more drinks on one occasion?: Never Total Score: 0 HO-7 AMB Questionnaire HO-7 Date HO - 7 assessed: 12/25/24 Feeling nervous, anxious, or on edge: 3 = Nearly every day Not being able to stop or control worryin = Nearly every day Worrying too much about different things: 3 = Nearly every day Trouble relaxin = Nearly every day Being so restless that it is hard to sit still: 3 = Nearly every day Becoming easily annoyed or irritable: 3 = Nearly every day Feeling afraid as if something awful might happen: 2 = More than half the days Total HO-7 score (0-4 normal; 5-9 mild; 10-14 moderate; 15-21 severe): 20 Source: Developed by Drs. Arturo Guerrero, Aubrie Burciaga, Nickolas Alejo and colleagues, with an educational lacie from [employer]. HO-7 Assessment Billing HO-7 Assessment Tool: HO-7 Assessment 14210 Physical exam (Primary Care) Vital Signs: Last Vital Signs Temp 97.3 F 12/25/24 11:04 Pulse 103 H 12/25/24 11:04 BP 120/88 12/25/24 11:04 Pulse Ox 97 12/25/24 11:04 Oxygen Delivery Method Room Air 12/25/24 11:04 BMI result Body Mass Index 28.8 Tobacco/Smoking Status: Tobacco use Status Tobacco use date assessed 12/25/24 12/25/24 11:04 Patient Tobacco Use Status Former Tobacco user 12/25/24 11:04 Tobacco use type Cigarette 12/25/24 11:04 e-Cigarette/Vaping Use Never Used 12/25/24 11:04 PHQ-9: PHQ-9 Score PHQ-9: Total score 16 12/25/24 11:41 Depression Screening Interpretation: Positive Thrive Assessment: Date of Thrive Assessment Date Thrive assessed 12/25/24 12/25/24 11:14 Currently or been in a relationship where the following occur: I choose not to answer Const General: alert; No acute distress Eyes Conjunctivae: conjunctivae normal Resp Auscultation: clear to auscultation bilaterally Cardio Rate: regular rate Rhythm: regular rhythm GI Inspection: Yes normal to inspection Extrem General: Yes normal to inspection and No edema Coding Level of Care Code Est Pt Level 4 (72635) Complex EM visit Add On G2211 Diagnoses Hepatic steatosis K76.0 Hypercholesterolemia E78.00 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 Digestive disease complication type: with fistula Ulcerative colitis location: ulcerative pancolitis Gastroesophageal reflux disease without esophagitis K21.9 Esophagitis presence: without esophagitis Primary hypertension I10 Hypertension type: primary hypertension History of deep vein thrombosis of lower extremity Z86.718 Neck pain M54.2 Additional Codes HO-7 Assessment Billing - HO-7 Assessment Tool: HO-7 Assessment 50166 ([id number]) PHQ-9 - 24236 - PHQ-9 Billing: Yes ([id number]) Assessment & Plan Assessment & Plan (1) Hepatic steatosis: Code(s): K76.0 - Fatty (change of) liver, not elsewhere classified Category: Medical Plan: low-fat diet and exercise (2) Hypercholesterolemia: Code(s): E78.00 - Pure hypercholesterolemia, unspecified Category: Medical Plan: Avoid fried foods, chicken skin, eggs, butter margarine, pastries and meat. Be it pork or beef they have a lot of cholesterol LDL goal of less than 130 and triglyceride of less than 150 on atorvastatin 20 mg once a day (3) Ulcerative colitis: Code(s): K51.90 - Ulcerative colitis, unspecified, without complications Category: Medical Qualifiers: Digestive disease complication type: with fistula Ulcerative colitis location: ulcerative pancolitis Qualified Code(s): K51.013 - Ulcerative (chronic) pancolitis with fistula Plan: patient follows up with Gastroenterology. MRI abdomen january 01, 2025 (4) GERD (gastroesophageal reflux disease): Code(s): K21.9 - Gastro-esophageal reflux disease without esophagitis Category: Medical Qualifiers: Esophagitis presence: without esophagitis Qualified Code(s): K21.9 - Gastro-esophageal reflux disease without esophagitis Plan: Avoid the foods that causes that usually spicy foods, tomato products, juices, coffee, soda and foods that your sensitive to. After eating do not lie down, allow 3-4 hours before in lie down. And keep the head of bed above 30 degrees to avoid the acid from going up. (5) Hypertension: Code(s): I10 - Essential (primary) hypertension Category: Medical Qualifiers: Hypertension type: primary hypertension Qualified Code(s): I10 - Essential (primary) hypertension Plan: Continue with blood pressure medication. Decrease salt intake and exercise takes propranolol (6) History of deep vein thrombosis of lower extremity: Comment: IVF filter Code(s): Z86.718 - Personal history of other venous thrombosis and embolism Category: Medical Plan: continuing with anticoagulation with Eliquis twice a day year blood work needed (7) Neck pain: Code(s): M54.2 - Cervicalgia Category: Medical Plan: will order for xray Plan History of Present Illness The patient is a 49-year-old male presenting with persistent neck pain and follow-up for management of various chronic medical conditions. The neck pain is localized to the spine with no radiation, worsens at night, and has warranted an x-ray evaluation. He has completed a course of ciprofloxacin for pouchitis associated with ulcerative colitis. His medical history includes DVT with an IVC filter, hypertension, GERD, iron deficiency anemia, depression, hypercholesterolemia, hepatic steatosis, and primary sclerosing cholangitis. His medications include Eliquis, atorvastatin, propranolol, benadryl, omeprazole, sertraline, calcium, vitamin D, Ursodiol, and Zolpidem. Regular evaluations and updates have been part of his health maintenance, focusing on managing elevated eosinophils, normalizing blood counts, and monitoring liver enzymes and cholesterol levels. Health Maintenance - Regular gastroenterology follow-up for ulcerative colitis and liver conditions. - Management of hypercholesterolemia with atorvastatin, with cholesterol levels aiming for LDL <130 mg/dL and triglycerides <150 mg/dL. - Monitoring of blood pressure with propranolol use, maintaining a healthy blood pressure. - Successful control of iron deficiency anemia with normalized blood counts. - Advisement on a low-fat diet and regular exercise. - Annual monitoring of kidney function due to anticoagulation therapy with Eliquis. - Discussion on avoiding allergens contributing to eosinophilia. Social History - Engages in dietary management, focusing on a low-fat diet and avoiding deep-fried foods. - Utilizes an air fryer to limit oil consumption and focus on healthier cooking methods. - Adheres to consistent medication regimen for multiple chronic conditions. - Takes [id number] Benadryl at night to manage allergy symptoms. Review of Systems - Musculoskeletal: Reports neck pain localized to the spine, worsened at night. - Allergic/Immunologic: Reports elevated eosinophils managed with Benadryl; no other allergy medications noted. Physical Exam - Musculoskeletal- Neck pain localized to the spine, no radiation to arms. Results - Labs: Normal blood count as of October 2024, elevated eosinophils at 7%, elevated liver enzymes, normal kidney function. - Cholesterol: Last tested July 2024, LDL 90 mg/dL, triglycerides 115 mg/dL. Plan We will perform a cervical spine x-ray to evaluate the neck pain further. The patient's current medication regimen for chronic conditions will remain unchanged, ensuring regular monitoring. Allergy symptoms managed with [id number] Benadryl will be continued. Dietary advice focusing on low-fat intake will be reinforced to assist in managing liver and cholesterol conditions. Follow-up appointments will assess liver function and overall health status. Continued adherence to lifestyle changes and therapies will be emphasized. Patient was informed and verbally consented to the use of an ambient scribe for clinic note documentation during this visit. Discussion Notes I discussed with the patient the current management strategies for his neck pain and chronic conditions. We reviewed the need for a cervical spine x-ray to further investigate spinal involvement. The patient is aware of the importance of maintaining his prescribed medications and dietary adjustments to support liver health and manage cholesterol levels. I addressed the role of Benadryl in managing his elevated eosinophils and proposed alternatives such as Claritin or Jeanne if daytime symptoms occur. Follow-up will involve reviewing diagnostic results and re-evaluating the treatment plan as necessary. Patient Instructions - Undergo cervical spine x-ray as planned. - Continue with current medications as prescribed. - Maintain a low-fat diet and avoid deep-fried foods. - Use Benadryl at night for allergies, and consider Claritin or Jeanne for daytime use if needed. - Schedule follow-up appointments for continued monitoring of liver function and overall health. - Communicate any new or worsening symptoms promptly. Orders: Orders XR cervical spine 2V Today M54.2 - Cervicalgia
--- OUTSIDE RECORDS SUMMARY | 2024-12-25 12:28 | XMS_ITS | Patient Health Record ---
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 Role Phone Peyman Dunn Primary Care Provider Keely Treviño Unavailable [phone] Allergies Allergen (clinical drug ingredient) Drug/Non Drug [...] Problem Status W/U Status Risk Notes Problem [id number] Ulcer of right foot with fat layer exposed (L97.512) Active confirmed Vital Signs Blood pressure diastolic 79 mm Hg 04/14/2024 Height 5ft 8in in 07/03/2024 Blood pressure systolic 129 mm Hg 04/14/2024 Weight 185 lbs 07/03/2024 BMI 28.13 kg/m2 07/03/2024 Encounters Encounter Location Date Provider Diagnosis [facility] [address] 04/04/2024 Keely Perica Pain in right toe(s) M79.674 ; Open displaced fracture of distal phalanx of right great toe, initial encounter S92.421B and Contusion of right great toe with damage to nail, initial encounter S90.211A [facility] [address] 04/14/2024 Keely Perica Pain in right toe(s) M79.674 ; Open displaced fracture of distal phalanx of right great toe, initial encounter S92.421B ; Contusion of right great toe with damage to nail, initial encounter S90.211A and Ulcer of right foot with fat layer exposed L97.[address] [facility] [address] 05/12/2024 Keely Charles Pain in right toe(s) M79.674 and Closed displaced fracture of distal phalanx of right great toe with routine healing S92.421D [facility] [address] [address] 07/03/2024 Keely Charles Closed displaced fracture of distal phalanx of right great toe with routine healing S92.421D [facility] [address] 04/04/2024 Keely Araceli [facility] [address] 04/13/2024 Keely Argentinawm Assessments Encounter Date Diagnosis (ICD Code) Assessment Notes Treatment Notes Treatment Clinical Notes Section Notes 04/04/2024 Pain in right toe(s) (ICD-10 - [...] Insured Coverage Start Date Coverage End Date [facility] [employer] Claims [address] [place] [address] [phone] [id number] Kailash Ndiaye Self - patient is the insured Medical (General) History Medical History History ICD Code Anxiety Broken bones Crohns disease Colitis Depression Hiatal hernia High blood pressure Poor circulation Chicken pox Transfusions PSC Surgical History Surgery Date(Month/Year) colon removed Ostemy reversal right heel surgery colonoscopy Hospitalization History Reason Date(Month/Year) [place] [facility] [place]
--- OUTSIDE RECORDS SUMMARY | 2024-12-25 12:28 | XMS_ITS ---
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 Generated for Jo Ann ceja/Subhash/eTransmitting on:?12/25/2024 12:28 PM EDT
--- OUTSIDE RECORDS SUMMARY | 2024-12-25 12:28 | XMS_ITS | Clinical Summary ---
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 Active Eliquis 5 MG tablet 1 tablet 2 times daily. 1 Active ascorbic acid (Vitamin C) 500 MG tablet Take 500 mg by mouth Once per day. Active calcium carbonate (Tums) 500 MG chewable tablet Chew 1 tablet Once per day. 2 Active Lubricant Eye Drops 0.5 % ophthalmic solution Administer 1 drop into both eyes 2 times daily. 4 Active cholecalciferol (Vitamin D-3) 50 MCG (2000 UT) tablet Take 2,000 Units by mouth Once per day. 2 Active Ciclopirox 0.77 % gel 1 Application 2 times daily. Active Cyanocobalamin (Vitamin B12) 1000 MCG tablet controlled-rele ase 1 tablet in the morning. 0 Active ferrous sulfate 325 (65 Fe) MG tablet 1 tablet. 2 Active omeprazole (PriLOSEC) [address] capsule daily. Active propranolol (Inderal) 10 MG tablet Take 10 mg by mouth 2 times daily. Active sertraline (Zoloft) 25 MG tablet Take 25 mg by mouth Once per day. 1 Active propranolol (Inderal) 10 MG tablet 1 tablet in the morning. 2 Active zolpidem (Ambien) 5 MG tablet Take 5 mg by mouth if needed at bedtime. Active Social History Tobacco Use Types Packs/Day Years Used Date Smoking Tobacco: Never Smokeless Tobacco: Never Tobacco Cessation:Counseling Given: Not Answered Alcohol Use Standard Drinks/Week Comments Defer 0 (1 standard drink = 0.6 oz pur e alcohol) Sex and Gender Information Value Date Recorded Sex Assigned at Male 07/27/2022 10:33 AM EDT Legal Sex Male 10:33 AM EDT Gender Identity Male 07/27/2022 10:33 AM EDT Sexual Orientation Straight 07/27/2022 10 :33 AM EDT Plan of Treatment Health Maintenance Due Date Last Done Comments CT Colonography 1977 Colonoscopy 1977 Colorectal Cancer Screening 1977 Depression Screening 1977 FIT DNA/Cologuard 1977 FIT 1977 FOBT 1975 HIV Screening 1977 Lipid Panel 1977 SDOH Screening 1977 Sigmoidoscopy 1977 Alcohol/Substance Use Screening 1989 Family Planning (PISQ) 1992 Hepatitis C Screening 1995 Hepatitis A Vaccines (1 of 2 - Risk 2-dose series) 1996 Hepatitis B Vaccines (1 of 3 - 19+ 3-dose series) 1996 Dental Oral Exam 06/25/2018 12/22/2017 Dental X-Ray: Bitewings 12/23/2018 12/22/2017 Dental Prophylaxis 01/31/2019 08/02/2018 Dental X-Ray: Full Mouth 12/23/2020 12/22/2017 COVID-19 Vaccine ( - 2023- season) 2024 03/05/2022, 07/11/2021 Influenza Vaccine (#1) 2024 , 07/21/2022, 08/02/2019, Additional history exists Tobacco Screening 05/22/2025 05/22/2024 Zoster Vaccines (1 of 2) 2027 DTaP/Tdap/Td Vaccines (3 - Td or Tdap) 04/04/2034 04/04/2024, 10/03/2015 RSV Patients and Patients Aged 60 years or older (1 - 1-dose 75+ series) 2052 Pneumococcal Vaccine: Pediatrics (0 to 5 Years) and At-Risk Patients (6 to 49) Years) Aged Out 11/07/2019, 11/23/2017 No longer eligibl e based on patient's age to complete this topic HIB Vaccines Aged Out No longer eligi ble based on patient's age to complete this topic HPV Vaccines Aged Out No longer eligi ble based on patient's age to complete this topic IPV Vaccines Aged Out No longer eligi ble based on patient's age to complete this topic Meningococcal Vaccine Aged Out No shelia fabricio eligible based on patient's age to complete this topic RSV under 20 months Aged Out No longe r eligible based on patient's age to complete this topic Rotavirus Vaccines Aged Out No longer eligible based on patient's age to complete this topic Procedures Procedure Name Priority Date/Time Associated Diagnosis Comments PROPHYLAXIS - ADULT Routine 08/02/2018 1 2:00 AM EST INTRAORAL - COMPLETE SERIES OF RADIOGRAPHIC IMAGES Routine 12/22/2017 12:00 AM EDT COMPREHENSIVE ORAL EVALUATION - NEW OR ESTABLISHED PATIENT Routine 12/22/2017 12:00 AM EDT from Last 3 Months or Most Recently Relevant to Health Maintenance Insurance * Guarantor: KAILASH NDIAYE Account Type Relation to Patient Date of Phone Billing Address Personal/Family [id number] [place] [address] [facility] MEDICAID STAND [facility]ULT [facility]
--- OUTSIDE RECORDS SUMMARY | 2024-12-25 12:28 | XMS_ITS ---
Author Organization [facility] Address [address] [place] [address] Care Team Providers Care Hip Hop Artist Name Role Phone Peyman Dunn Primary Care Provider Keely Treviño Unavailable [phone] Allergies Allergen (clinical drug ingredient) Drug/Non Drug [...] 05/12/2024 Encounters Encounter Location Date Provider Diagnosis [facility] [place] [address] [place] [address] 05/12/2024 Keely Perica Pain in right toe(s) [...] of the wound post debriement is stable (63141) , The patient is to apply betadine to the wound and cover with a DSD , The patient is to cont the local wound care as directed till condition is completely healed Progress Notes * Kailash NDIAYE LDOB:1975 (48 yo M)Acc No.[id number]:05/12/2024 Progress Note Patient:?Jade Ndiayerge L Provider:?Keely Charles DPM :1975???Age:48 Y???Sex:Male David e:05/12/2024 Address:[address] [place] [address] Pcp:Peyman Dunn Subjective: * Chief Complaints: * ???Painful Toe(s) * HPI: ???Toe pain:?Nature:?aching,?bruising,?discoloration,?swelling,?tenderness,?throbbing.?Location:?Right foot , Great toe.?Duration:?since DOI ( 04/03/24 ).?Onset/Cause:?states traumatic ( pt fell chasing.a dog?).?Course:?improved , at ___75__ percent.?Aggravated by:?any pressure, standing/walking, shoes.?Treatments:?Pt went to [facility], pt had Xrays which showed fracture [...] surgery colonoscopy * Hospitalization/Major Diagno stic Procedure:?ER [facility]- Broken toe 04/03/24 * Family History:?Mother: dece [...] right great toe with routine healing - S92.444D (Primary)? Plan: * Treatment: * Procedures:?Debride skin [...] of the wound post debriement is stable (53892) , The patient is to apply betadine to the wound and cover with a DSD , The patient is to cont the local wound care as directed till condition is completely healed.? * Procedure Codes:?31222 X-RAY EXAM OF RIGHT FOOT 3V, Modifiers: [...] * Provider:?Keely Charles DPM Date:? Generated for Printi brenna/Faemileeg/eTransmitting on:?12/25/2024 12:27 PM EDT History and Physical Notes * HPI (History [...] standi ng/walking, shoes Treatments: Pt went to [facility], p t had Xrays which showed [...]
--- OUTSIDE RECORDS SUMMARY | 2024-12-25 12:28 | XMS_ITS ---
Author Organization [facility] Address [address] [place] [address] Care Team Providers Care Sample Maker Original Name Role Phone Peyman Dunn Primary Care Provider Keely Treviño Unavailable [phone] Allergies Allergen (clinical drug ingredient) Drug/Non Drug [...] 07/03/2024 Encounters Encounter Location Date Provider Diagnosis [facility] [address] 07/03/2024 Keely Charles Closed displaced fracture of [...] of the wound post debriement is stable (84557) , The patient is to apply betadine to the wound and cover with a DSD , The patient is to cont the local wound care as directed till condition is completely healed Progress Notes * Kailash NDIAYE LDOB:1975 (48 yo M)Acc No.[id number]:07/03/2024 Progress Note Patient:?Kailash Ndiaye L Provider:?Keely Charles DPM :1975???Age:48 Y???Sex:Male David e:07/03/2024 Address:[address] [place], [place] [id number] Pcp:Peyman Dunn Subjective: * Chief Complaints: * [...] of the wound post debriement is stable (66962) , The patient is to apply betadine to the wound and cover with a DSD , The patient is to cont the local wound care as directed till condition is completely healed.? * Procedure Codes:?44870 X-RAY EXAM OF RIGHT FOOT 3V, Modifiers: [...] * Provider:?Keely Charles DPM Date:?03/2024 Generated for Printclifton ceja/Faemileeg/eTransmitting on:?12/25/2024 12:27 PM EDT History and Physical [...]
--- OUTSIDE RECORDS SUMMARY | 2024-12-25 12:28 | XMS_ITS | Clinical Summary ---
Author Organization [facility], Address [address] [place] [address] [place] [address] Phone Care Team Providers Care Machine Designer Name Role Phone Peyman Dunn MD Primary Care Provider [phone] Allergies Active Allergy Reactions Criticality Noted Date [...] 11/23/2019 Immunizations Name Administration Dates Next Due [facility] SARS-COV-2 07/11/2021 Family History Medical History Relation [...] series) 09/21 Influenza Vaccine (#1) 2024 Insurance [facility] [address] [place] [id number] Care Teams Machine Designer Relationship Specialty Start Date End Date [facility]yman [facility] [place] [address] [place] PCP - General 08/01/19
--- OUTSIDE RECORDS SUMMARY | 2024-12-25 12:28 | XMS_ITS ---
Author Organization [facility] Address [address] [place] [address] Care Team Providers Care Overcoiler Name Role Phone Peyman Dunn Primary Care Provider Keely Trveiño Unavailable [phone] Allergies Allergen (clinical drug ingredient) Drug/Non Drug [...] Problem Status W/U Status Risk Notes Problem [id number] Ulcer of right foot with fat layer exposed (L97.512) Active confirmed Vital Signs Height 5ft8in in 04/14/2024 Weight 183 lbs 04/14/2024 BMI 27.82 kg/m2 04/14/2024 Blood pressure systolic 129 mm Hg 04/14/20 24 Blood pressure diastolic 79 mm Hg 024 Encounters Encounter Location Date Provider Diagnosis [facility] [place] [address] [place] [address] 04/14/2024 Keely Charles Pain in right toe(s) [...] of the wound post debriement is stable (44674) , The patient is to apply betadine to the wound and cover with a DSD , The patient is to cont the local wound care as directed till condition is completely healed Progress Notes * Kailash NDIYAE LDOB:1975 (48 yo M)Acc No.[id number]:04/14/2024 Progress Notes Patient:?Kailash Ndiaye L Provider:?Keely Charles DPM :1975???Age:48 Y???Sex:Male David e:04/14/2024 Address:[address] [place] [address] Pcp:Peyman Dunn Subjective: * Chief Complaints: * ???Pcp-02/17Pcp-12/18Painful Toe(s) * HPI: ???Toe pain:?Nature:?aching,?bruising,?discoloration,?swelling,?tenderness,?throbbing.?Location:?Right foot , Great toe.?Duration:?since DOI ( 04/03/24 ).?Onset/Cause:?states traumatic ( pt fell chasing.a dog?).?Aggravated by:?any pressure, standing/walking, shoes.?Treatments:?Pt went [place] [facility], pt had Xrays which showed fracture [...] of the wound post debriement is stable (65521) , The patient is to apply betadine to the wound and cover with a DSD , The patient is to cont the local wound care as directed till condition is completely healed.? * Procedure Codes:?71772 DEBRI DE SKIN/TISSUE, Modifiers: XS * Preventive [...] DPM Date:? Generated for Jo Ann ceja/Subhash/Franc on:?12/25/2024 12:28 PM EDT History and Physical Notes * HPI (History of Present Illness) Category Sub-Category Detail Notes Category Not es Toe pain Nature: aching, bruising , discoloration, swelling, tenderness, throbbing Location: Right foot , Great t oe Duration: since DOI ( 04/03/24 ) Onset/Cause: states traumatic ( p t fell chasing.a dog ) Aggravated by: any pressure, standi ng/walking, shoes Treatments: Pt went [place] [facility], p t had Xrays which showed [...]
--- OUTSIDE RECORDS SUMMARY | 2024-12-25 12:29 | XMS_ITS ---
Author Organization [facility] Address [address] [place] [address] Care Team Providers Care Stock House Worker Name Role Phone Peyman Dunn MD Primary Care Provider UnavailArturo Ortega Unavailable [phone] RockyNivia Unavailable Unavailable REASON FOR VISIT Patient presents today for ELEVATED LFT'S Encounters Encounter Location Date Provider Diagnosis [facility] [address] [place] [address] 02/08/2024 Arturo Baxter Plan Of Treatment No Information Progress Notes * BUTLER, PRASADRussLORRIEOB:1975 ( 49 yo M)Acc No.[id number]:02/08/2024 Progress Notes Patient:?PRASAD BUTLERRGE Provider:?Arturo Baxter MD :1975???Age:48 Y???Sex:Male David e:02/08/2024 Address:[address] [place] [address], [id number] Pcp:Peyman Dunn MD Subjective: * Chief Complaints: * ???1. Patient presents today for ELEVATED LFT'S. * Medical History:? Objective: * Vitals:? Assessment: Plan: * Treatment: * * The named appointment provid er may or may not be the originator of this progress note, and it is not deemed complete until electronically signed by the appointment provider. Sign off status: Pending * Provider:?Arturo Baxter MD Date:? 024 Generated for Jo Ann ceja/Faemileeg/eTransmitting on:?12/25/2024 12:28 PM EDT
--- OUTSIDE RECORDS SUMMARY | 2024-12-25 12:29 | XMS_ITS | Patient Health Record ---
Author Organization [facility] Address [address] [place] [address] Care Team Providers Care Teacher Vocational Training Name Role Phone Po Peyman VILLA Primary Care Provider Arturo Nelson Unavailable [phone] Nivia Hidalgo Unavailable Unavailable Reason For Referral No Information Encounters Encounter Location Date Provider Diagnosis [facility] [address] [place] [address] 02/07/2024 Arturo Baxter Plan Of Treatment No Information Insurance Providers Payer Name Payer Address Payer Phone Subscriber Number Group Number Insured Name Patient Relationship to Insured Coverage Start Date Coverage End Date [facility] [address] [place] [address] [id number] GIOVANNA BUTLER Self - patient is the insured
== END 2024-12-25 11:59 | disposition home or self-care (01) ==
LOC: HO.HMCH 10:58
PROVIDERS: PCP Internal Medicine; Visit Provider Internal Medicine
DX: K76.0 Fatty (change of) liver, not elsewhere classified (principal); E78.00 Pure hypercholesterolemia, unspecified; K51.013 Ulcerative (chronic) pancolitis with fistula; K21.9 Gastro-esophageal reflux disease without esophagitis; I10 Essential (primary) hypertension; Z86.718 Personal history of other venous thrombosis and embolism; M54.2 Cervicalgia

== ENCOUNTER → 2024-12-25 12:14 | Outpatient (BNV) | payer OTHER, SELFPAY | PROVIDERS: PCP Internal Medicine; Visit Provider Radiology Diagnostic Radiology | DX: M54.2 Cervicalgia (principal) | CPT/HCPCS: 72040 ==

== ENCOUNTER 2025-03-13 14:42 | Outpatient (REF) | payer OTHER, SELFPAY ==
[2025-03-13 15:25] LABS: Hematocrit 39.6 % (42.0-52.0); Hemoglobin 12.6 g/dl (14.0-18.0); Mean Corpuscular HGB Conc 31.8 g/dl (31.0-36.0); Mean Corpuscular Volume 100.5 fL (80.0-98.0); Mean Platelet Volume 11.7 fL (9.4-12.4); Platelet Count 237 X10*3/uL (160-400); Red Blood Count 3.94 X10*6/uL (4.60-5.80); Red Cell Distribution Width 15.9 % (11.0-16.0); White Blood Count 6.6 X10*3/uL (4.8-10.8)
[2025-03-13 15:29] LABS: INTERNATIONAL NORM RATIO 1.1 (0.9-1.1); Prothrombin Time 12.4 SEC (10.9-12.4)
[2025-03-13 16:05] LABS: Alanine Aminotransferase 95 U/L (0-40); Albumin Level 3.7 g/dL (3.5-5.0); Alkaline Phosphatase 270 U/L (39-117); Aspartate Amino Transferase 101 U/L (5-37); Bilirubin Direct 8.8 mg/dL (0.0-0.5); Bilirubin Total 11.8 mg/dL (0.0-1.0)
--- OUTSIDE RECORDS SUMMARY | 2025-03-13 17:01 | XMS_ITS | Patient Health Record ---
Author Organization [facility] Address [address] [place] [address] Care Team Providers Care Grain Receiver Name Role Phone Peyman Dunn Primary Care Provider Keely Treviño Unavailable [phone] Allergies Allergen (clinical drug ingredient) Drug/Non Drug [...] Problem Status W/U Status Risk Notes Problem [id number] Ulcer of right foot with fat layer exposed (L97.512) Active confirmed Vital Signs Blood pressure diastolic 79 mm Hg 04/14/2024 Height 5ft 8in in 07/03/2024 Blood pressure systolic 129 mm Hg 04/14/2024 Weight 185 lbs 07/03/2024 BMI 28.13 kg/m2 07/03/2024 Encounters Encounter Location Date Provider Diagnosis [facility] [address] 04/04/2024 Keely Perica Pain in right toe(s) M79.674 ; Open displaced fracture of distal phalanx of right great toe, initial encounter S92.421B and Contusion of right great toe with damage to nail, initial encounter S90.211A [facility] [address] 04/14/2024 Keely Perica Pain in right toe(s) M79.674 ; Open displaced fracture of distal phalanx of right great toe, initial encounter S92.421B ; Contusion of right great toe with damage to nail, initial encounter S90.211A and Ulcer of right foot with fat layer exposed L97.[address] [facility] [address] 05/12/2024 Keely Charles Pain in right toe(s) M79.674 and Closed displaced fracture of distal phalanx of right great toe with routine healing S92.421D [facility] [address] [address] 07/03/2024 Keely Charles Closed displaced fracture of distal phalanx of right great toe with routine healing S92.421D [facility] [address] 04/04/2024 [facility]eli [facility] [address] 04/13/2024 Keely Argentinawm Assessments Encounter Date Diagnosis [...] Insured Coverage Start Date Coverage End Date [facility] [employer] Claims [address] [place] [id number] Kailash Ndiaye Self - patient is the insured Medical (General) History Medical History History ICD Code Anxiety Broken bones Crohns disease Colitis Depression Hiatal hernia High blood pressure Poor circulation Chicken pox Transfusions PSC Surgical History Surgery Date(Month/Year) colon removed Ostemy reversal right heel surgery colonoscopy Hospitalization History Reason Date(Month/Year) ER [facility]- Broken toe 04/03/24
== END 2025-03-13 14:43 | disposition home or self-care (01) ==
LOC: HO.LAB 14:42
PROVIDERS: PCP Internal Medicine; Visit Provider Internal Medicine
DX: K83.01 Primary sclerosing cholangitis (principal)
CPT/HCPCS: 36415; 80076; 85027; 85610

== ENCOUNTER 2025-03-21 11:38 | Outpatient (REF) | payer OTHER, SELFPAY ==
[2025-03-21 12:01] LABS: MANUAL DIFF FLAG NO
[2025-03-21 12:31] LABS: Basophils Absolute Auto 0.1 X10*3/uL (0.0-0.2); Eosinophils Absolute Auto 0.5 X10*3/uL (0.0-0.4); Eosinophils Percent Auto 6.9 % (0-4); Hematocrit 36.6 % (42.0-52.0); Hemoglobin 12.4 g/dl (14.0-18.0); Imm Gran Abs Auto 0.04 X10*3/uL (0.00-0.03); Imm Gran Pct Auto 0.5 % (0.0-0.4); Lymphocytes Percent Auto 26.7 % (20-40); Mean Corpuscular HGB Conc 33.9 g/dl (31.0-36.0); Mean Corpuscular Volume 97.3 fL (80.0-98.0); Mean Platelet Volume 12.1 fL (9.4-12.4); Monocytes Absolute Auto 0.6 X10*3/uL (0.1-1.2); Monocytes Percent Auto 7.3 % (2-11); Neutrophils Absolute Auto 4.4 x10*3/uL (2.0-8.3); Neutrophils Percent Auto 57.6 % (45-73); Platelet Count 183 X10*3/uL (160-400); Red Blood Count 3.76 X10*6/uL (4.60-5.80); Red Cell Distribution Width 15.6 % (11.0-16.0); White Blood Count 7.7 X10*3/uL (4.8-10.8)
[2025-03-21 12:38] LABS: INTERNATIONAL NORM RATIO 1.2 (0.9-1.1); Prothrombin Time 13.6 SEC (10.9-12.4)
[2025-03-21 13:05] LABS: Alanine Aminotransferase 91 U/L (0-40); Albumin Level 3.5 g/dL (3.5-5.0); Alkaline Phosphatase 235 U/L (39-117); Anion Gap 11 (12-20); Aspartate Amino Transferase 109 U/L (5-37); Bilirubin Direct 7.5 mg/dL (0.0-0.5); Bilirubin Total 10.3 mg/dL (0.0-1.0); Blood Urea Nitrogen 11 mg/dL (9-16); Calcium 9.5 mg/dL (8.4-10.2); Carbon Dioxide 25 mmol/L (22-29); Chloride 108 mmol/L (96-108); Estimated Glomerular Filt Rate > 60; Glucose Random 121 mg/dL (60-115); Potassium 3.1 mmol/L (3.3-5.1); Sodium 141 mmol/L (135-145); Total Protein 7.3 g/dL (6.5-8.0)
--- OUTSIDE RECORDS SUMMARY | 2025-03-21 13:54 | XMS_ITS | Patient Health Record ---
Author [facility] Address [address] [place] [address] Care Team Providers Care Ludlow Machine Operator Name Role Phone Peyman Dunn Primary Care Provider Keely Treviño Unavailable [phone] Allergies Allergen (clinical drug ingredient) Drug/Non Drug [...] a day Not-Taking Vitamin D3 50 MCG (1999 UT) 1 capsule Orally Once a day [...] Problem Status W/U Status Risk Notes Problem [id number] Ulcer of right foot with fat layer exposed (L97.512) Active confirmed Vital Signs Blood pressure diastolic 79 mm Hg 04/14/2024 Height 5ft 8in in 07/03/2024 Blood pressure systolic 129 mm Hg 04/14/2024 Weight 185 lbs 07/03/2024 BMI 28.13 kg/m2 07/03/2024 Encounters Encounter Location Date Provider Diagnosis [facility] [address] 04/04/2024 Keely Perica Pain in right toe(s) M79.674 ; Open displaced fracture of distal phalanx of right great toe, initial encounter S92.421B and Contusion of right great toe with damage to nail, initial encounter S90.211A [facility] [address] 04/14/2024 Keely Perica Pain in right toe(s) M79.674 ; Open displaced fracture of distal phalanx of right great toe, initial encounter S92.421B ; Contusion of right great toe with damage to nail, initial encounter S90.211A and Ulcer of right foot with fat layer exposed L97.[address] [facility] [address] 05/12/2024 Keely Charles Pain in right toe(s) M79.674 and Closed displaced fracture of distal phalanx of right great toe with routine healing S92.421D [facility] [address] [address] 07/03/2024 Keely Charles Closed displaced fracture of distal phalanx of right great toe with routine healing S92.421D [facility] [address] 04/04/2024 [facility] [address] 04/13/2024 Keely Argentinawm Assessments Encounter Date Diagnosis [...] Insured Coverage Start Date Coverage End Date [facility] [employer] Claims [address] [place] [id number] Kailash Ndiaye Self - patient is the insured Medical (General) History Medical History History ICD Code Anxiety Broken bones Crohns disease Colitis Depression Hiatal hernia High blood pressure Poor circulation Chicken pox Transfusions PSC Surgical History Surgery Date(Month/Year) colon removed Ostemy reversal right heel surgery colonoscopy Hospitalization History Reason Date(Month/Year) ER [facility]- Broken toe 04/03/24
[2025-03-22 07:08] LABS: Immunoglobulin G 2008 mg/dL (600-1640)
[2025-03-22 08:17] LABS: HBc Num1 0.25 S/CO (0.00-0.79); HBsAGNum1 0.49 S/CO (0.00-0.99); Hepatitis A Antibody IgM 0.23 Index (0-0.79); Hepatitis B Core Antibody Nonreactive (Nonreactive); Hepatitis B Surface Antigen Negative (Negative); ~HepC Num1 0.15 S/CO (0.00-0.79); ~Hepatitis A Antibody IgM Nonreactive (Nonreactive); ~Hepatitis B Surface Antibody NONREACTIVE (Nonreactive); ~Hepatitis C Antibody Nonreactive (Nonreactive)
[2025-03-22 13:38] LABS: CMV DNA Qn PCR NOT DETECTED Log IU/mL (NOT DETECTED); CMV DNA Qn Real Time PCR NOT DETECTED (NOT DETECTED)
[2025-03-23 13:29] LABS: HCV Log PCR <1.18 NOT DETECTED Log IU/mL (NOT DETECTED); HepC Viral Load <15 NOT DETECTED IU/mL (NOT DETECTED)
[2025-03-23 18:38] LABS: EBV DNA PCR Not Detected (Not Detected); EBV Source Plasma
[2025-03-24 10:58] LABS: Liver Kidney Microsomal Ab <=20.0 U (<=20.0)
[2025-03-26 11:28] LABS: Soluble Liver Ag Autoantibody <20.1 U (0.0-20.0)
[2025-03-27 18:28] LABS: Hepatitis E Virus HEV IgG NOT DETECTED; Hepatitis E Virus HEV IgM NOT DETECTED
== END 2025-03-21 11:39 | disposition home or self-care (01) ==
LOC: HO.LAB 11:38
PROVIDERS: Absent Provider Internal Medicine Gastroenterology; PCP Internal Medicine; Visit Provider Internal Medicine
DX: K83.01 Primary sclerosing cholangitis (principal); K75.81 Nonalcoholic steatohepatitis (NASH); K52.839 Microscopic colitis, unspecified
CPT/HCPCS: 36415; 80053; 82248; 82784; 83520; 85025; 85610; 86376; 86704; 86706; 86709; 86790; 86803; 87340; 87497; 87522; 87798

== ENCOUNTER 2025-03-26 09:08 | Outpatient (AMB) | payer OTHER, SELFPAY ==
--- NOTE | 2025-03-26 09:16 | A.OFFVIS_ITS ---
Vital Signs 03/26/25 09:24 Height 5 ft 8 in Weight 270 lb BMI 41.0 BP 95/66 Blood Pressure Location Lt brachial Position Sitting Pulse 55 Pulse Oximetry (%) 97 Oxygen Delivery Method Room Air Intake Visit Reasons: 6m f/u Intake Note: Patient 6 month follow up Patient cc:right abdominal discomfort and bloating, and always tired. Denies any other GI issues. 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 Accompanied by: Sister Allergies azathioprine (From IMURAN) Allergy (Unknown, Verified 12/25/24 11:04) PANCREASE SWELLING infliximab (From REMICADE) Allergy (Unknown, Verified 12/25/24 11:04) DIFFICULTY BREATHING mannitol (Reclast) Allergy (Unknown, Verified 12/25/24 11:04) joint pain silver (From TEGADERM AG MESH) Allergy (Unknown, Verified 12/25/24 11:04) BLISTERS water for injection,sterile (Reclast) Allergy (Unknown, Verified 12/25/24 11:04) joint pain zoledronic acid (Reclast) Allergy (Unknown, Verified 12/25/24 11:04) joint pain HPI Comments Details: 48 y.o M with PMH of UC s/p proctocolectomy with IPAA complicated by incisional and internal hernia leading to SBO and small bowel per with EC fistula, now resolved after extensive surgical interventions outlined below, who is here for elevated LFTs. IBD Hx: Dx: UC Age/year: 32y.o/2006 Prev meds: Asacol, prednisone, imuran (pancreatitis) Current meds: None Surgeries: Multiple. proctocolectomy 2009 with J pouch creation 6 months (Dr Baldo Javier). c/b multiple incisional and parastomal hernia with multiple repairs c/b SBO due to strangulated internal hernia small bowel perforation requiring multiple abd washouts and bowel resections [facility] and then again 11/2020-12/2020. Eventually seen at [facility] (Dr Price) and underwent repair of EC fistula as well as closure of loop ileostomy in early 2021. Imaging: MRI 2020 ([facility]): ? PSC. Endoscopy: Pouchoscopy 10/27/[address] Price. Has 5cm of rectal cuff. EIM: Prev osteopenia now resolved 12/27/23: Reports doing well. Energy levels are good. Weight is stable. Has good appetite. Has watery BMs x 10 per day. No blood in them. Was told by his surgeon may have short gut syndrome. Referred here primarily for ? elevated LFTs and ? PSC. 02/07/24: Patient underwent MRI liver protocol 01/10 that not note any large duct PSC. He subsequently underwent ultrasound-guided liver biopsy on 01/25. Path as below. Liver, right lobe, biopsy: Steatohepatitis with: - Portal and lobular chronic inflammation with rare eosinophils. - Mixed micro and macrovesicular steatosis involving 15% of the tissue. - Increased portal and sinusoidal fibrosis (stage II). Comment: Despite the steatohepatitis, a different evolving immune-mediated process cannot be ruled out (for example, primary sclerosing cholangitis, et al). Correlation with other clinical and imaging findings is recommended. Otherwise, does not report abd discomfort, distention, pruritus, fatigue. 05/15/24: Seen in follow up. Has been seen by Dr Ruiz as virtual visit. Likely PSC but review of path slides pending. Continues on carlos eduardo - good response to therapy so far. Lipids uncontrolled since 2022 and pt not statin for unclear reason, already has SHAW on liver bx. 08/14/24: Here for follow up, accompanied by sister. Had another follow up with Dr Ruiz and is andressa for repeat MRI in december 2024. [facility] path interpretation: steatohepatitis. Mild duct injury abd cholestatic changes (greater than expected for degree of steatohepatitis based on keratin stain) Perivenular and periportal sinusoidal fibrosis Dexa 2023 - normal. Prev has had osteopenia. From IBD standpoint, pouchoscopy andressa for Sep 2024. 10/03/24: Pouchoscopy Impression: 1. R/o pouchitis (biopsy) 2. Normal rectal mucosa (biopsy) Recommendations: - Follow path results. - Will discuss management depending on results - Repeat pouchoscopy in 1 year. Path: A. Colon, 10 cm, biopsy: Chronic, mildly active, colitis. B. Colon, 5 cm, biopsy: Chronic inactive colitis. Comment: No dysplasia is identified 10/16/24: Pt was not originally booked for a follow up today but presented to the office any way to get post pouchoscopy results. These had been communicated to him over the portal previously. Was seen as urgent visit . Results reviewed, and would favor x2 weeks fo ABx for pouchitis. Pt recalls getting this the last time he had pouchoscopy done through his colorectal surgeon however not sure if this made any difference to his sx. 03/26/25: Seen as urgent follow up. Was seen by Dr Ruiz last month. Started on fenofibrate 02/09. In two weeks started noticing yellowing of eyes. Contacted [facility] on 02/26. Pt was [facility] so [facility] Went to [facility] the same day. Initial T Bili was 19.8. AST 178. ALT 160 MRI with and without contrast 02/27 with mild prominence of intrahepatic ducts. Extrahepatic CBD normal. No liver mass noted. No LN. No ascites. Fenofibrate is on hold now. Pt doesnt think he got steroids in the hospitals. Continues on Carlos Eduardo 1500/day. Currently no abd pain, N,V. No pruritus. Does endorse fatigue. LFTs better but trajectory is slow. 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 Mother Osteoporosis Heart problem HTN (hypertension) Maternal Aunt Breast cancer Social History Household Members: None Housing: House Are you a primary nursing care attendant to a significant other at home: No Do you presently have visiting nurse or other home services: Yes Alcohol intake: current Alcohol intake frequency: does not drink Patient Tobacco Use Status: Former Tobacco user Tobacco use type: Cigarette e-Cigarette/Vaping Use: Never Used Second Hand Smoke Exposure: No Substance Use Type: Marijuana service: No Current occupational status: disabled Cognitive needs: No Hearing needs: No Vision needs: Yes Review of Systems Const All systems reviewed & are unremarkable except as noted in HPI and below Physical Exam Vital Signs: Last Vital Signs Pulse 55 03/26/25 09:24 BP 95/66 03/26/25 09:24 Pulse Ox 97 03/26/25 09:24 Oxygen Delivery Method Room Air 03/26/25 09:24 BMI result Body Mass Index 41.0 grossly icteric abd soft, nontender, nondistended No asterixis Assessment & Plan Assessment & Plan (1) Primary sclerosing cholangitis: Code(s): K83.01 - Primary sclerosing cholangitis Category: Medical (2) Elevated LFTs: Code(s): R79.89 - Other specified abnormal findings of blood chemistry Category: Medical (3) Ulcerative colitis: Code(s): K51.90 - Ulcerative colitis, unspecified, without complications Category: Medical Qualifiers: Ulcerative colitis location: ulcerative pancolitis Digestive disease complication type: with fistula Qualified Code(s): K51.013 - Ulcerative (chronic) pancolitis with fistula (4) Hypercholesterolemia: Code(s): E78.00 - Pure hypercholesterolemia, unspecified Category: Medical (5) Hepatic steatosis: Code(s): K76.0 - Fatty (change of) liver, not elsewhere classified Category: Medical (6) Painless jaundice: Code(s): R17 - Unspecified jaundice Category: Medical (7) Drug-induced liver injury: Code(s): K71.9 - Toxic liver disease, unspecified Category: Medical Plan Overall picture consistent with UC with PSC + biopsy proven steatohepatitis. Most recent MRI without any stricturing disease. Ca 19-9 is normal - 15. Established with Dr Ruiz at [facility]. Carlos Eduardo 15mg/kg/day started. Pt developed painless jaundice early February. Admitted to [facility]. Initialy T Bili was 19 on 02/26. Now down to 10 on labs 03/21. W/up neg for acute infectious hep, biliary obstruction, dominant stricture, new mass. Had a large gallstone in GB but pt without any clinical sx of acute michell plus wouldnt expect bili of 19 from acute michell. ? cholestatic injury from tricor. Currently, numbers trending down. Plan: - Cont Carlos Eduardo 15mg/kg/day - Repeat LFTs and INR - Check Ca 19-9 - Will review with Dr Sara vila utility of ERCP vs repeat liver bx if LFTs stay up Remaining PSC care not actively addressed today: - Will need yearly i) pouchoscopy (next due 09/2025 - has 5 cm rectal cuff) ii) MRI/MRCP (due 02/2025 )and CA 19-9 (will be due 02/2025) for screening of CRC, CCa and GBCa. - Reviewed use of multivitamins and liz Vit D repletion - DEXA scan 05/2024 normal. Next due 05/2026. - On atorva 20. Also reviewed mod intensity exercise and weight loss of 10% TBW to help with SHAW Timing of follow up here vs tx to [facility] contingent on results of labs. Orders: Orders Carbohydrate Antigen 19-9 Today K83.01 - Primary sclerosing cholangitis Comprehensive Met. Panel Today K71.9 - Toxic liver disease, unspecified Prothrombin Time INR Today K83.01 - Primary sclerosing cholangitis Coding Level of Care Code Est Pt Level 5 (46944) Complex EM visit Add On G2211 Diagnoses Primary sclerosing cholangitis K83.01 Elevated LFTs R79.89 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 Ulcerative colitis location: ulcerative pancolitis Digestive disease complication type: with fistula Hypercholesterolemia E78.00 Hepatic steatosis K76.0 Painless jaundice R17 Drug-induced liver injury K71.9
[2025-03-26 09:24] VITALS: BP 95/66; PULSE 55; O2SAT 97; BMI 41.0
--- OUTSIDE RECORDS SUMMARY | 2025-03-26 09:29 | XMS_ITS | Patient Health Record ---
[facility] Address [address] [place] [address] Care Team Providers Care Supervisory Cbp Officer Name Role Phone Peyman Dunn Primary Care Provider Keely Treviño Unavailable [phone] Allergies Allergen (clinical drug ingredient) Drug/Non Drug [...] 0.77 % 1 application Externally Twice a day; Duration: 30 days Active Ciclopirox 0.77 % 1 application Externally Twice a day; Duration: 365 days Active Eliquis 5 MG 1 [...] Problem Status W/U Status Risk Notes Problem Ulcer of right foot (disorder) (302020008) Ulcer of right foot with fat layer exposed (L97.512) Active confirmed Vital Signs Blood pressure diastolic 79 mm Hg 04/14/2024 Height 5ft 8in in 07/03/2024 Blood pressure systolic 129 mm Hg 04/14/2024 Weight 185 lbs 07/03/2024 BMI 28.13 kg/m2 07/03/2024 Encounters Encounter Location Date Provider Diagnosis [facility] [address] [address] 04/04/2024 Keely Perica Pain in right toe(s) M79.674 ; Open displaced fracture of distal phalanx of right great toe, initial encounter S92.421B and Contusion of right great toe with damage to nail, initial encounter S90.211A [facility] [address] [address] 04/14/2024 Keely Perica Pain in right toe(s) M79.674 ; Open displaced fracture of distal phalanx of right great toe, initial encounter S92.421B ; Contusion of right great toe with damage to nail, initial encounter S90.211A and Ulcer of right foot with fat layer exposed L97.512 [facility] [address] [address] 05/12/2024 Keely Charles Pain in right toe(s) M79.674 and Closed displaced fracture of distal phalanx of right great toe with routine healing S92.421D [facility] [address] [address] 07/03/2024 Keely Charles Closed displaced fracture of distal phalanx of right great toe with routine healing S92.421D [facility] [address] 04/04/2024 Keely Charles [address] [address] 04/13/2024 Keely Charles Assessments Encounter Date Diagnosis (ICD Code) Assessment [...] Insured Coverage Start Date Coverage End Date [facility] [employer] Claims [address] [place] [id number] [phone] [id number] Kailash Ndiaye Self - patient is the insured Medical (General) History Medical History History ICD Code Anxiety Broken bones Crohns disease Colitis Depression Hiatal hernia High blood pressure Poor circulation Chicken pox Transfusions PSC Surgical History Surgery Date(Month/Year) colon removed Ostemy reversal right heel surgery colonoscopy Hospitalization History Reason Date(Month/Year[place] [facility]/03[place]
== END 2025-03-26 12:36 | disposition home or self-care (01) ==
LOC: HO.HGI 09:09
PROVIDERS: PCP Internal Medicine; Visit Provider Internal Medicine
DX: K83.01 Primary sclerosing cholangitis (principal); R79.89 Other specified abnormal findings of blood chemistry; K51.013 Ulcerative (chronic) pancolitis with fistula; E78.00 Pure hypercholesterolemia, unspecified; K76.0 Fatty (change of) liver, not elsewhere classified; R17 Unspecified jaundice; K71.9 Toxic liver disease, unspecified
CPT/HCPCS: 99214; G2211

== ENCOUNTER → 2025-03-26 09:08 | Outpatient (BNVA) | payer OTHER, SELFPAY | PROVIDERS: PCP Internal Medicine; Visit Provider Internal Medicine | DX: K83.01 Primary sclerosing cholangitis (principal); R79.89 Other specified abnormal findings of blood chemistry; K51.013 Ulcerative (chronic) pancolitis with fistula; E78.00 Pure hypercholesterolemia, unspecified; K76.0 Fatty (change of) liver, not elsewhere classified; K71.9 Toxic liver disease, unspecified | CPT/HCPCS: 99212 ==

== ENCOUNTER 2025-03-28 11:13 | Outpatient (REF) | payer OTHER, SELFPAY ==
--- OUTSIDE RECORDS SUMMARY | 2024-02-08 10:20 | XMS_ITS ---
Author Organization [facility] Address [address] [place] [phone] Care Team Providers Care Practice Nurse Name Role Phone Peyman Dunn MD Primary Care Provider Arturo Nelson [phone] Nivia Hidalgo Unavailable Unavailable REASON FOR VISIT Patient presents today for ELEVATED LFT'S Encounters Encounter Location Date Provider Diagnosis [facility] [address] [place] [phone] 02/08/2024 Arturo Baxter Plan Of Treatment No Information Progress Notes * RODRICK BUTLEROB:1975 ( 49 yo M)Acc No.[id number]:02/08/2024 Progress Notes Patient: GIOVANNA RAINEY Provider: Russ Baxter MD :1975 A ge:48 Y S ex:Male Date:02/08/2024 Address:[address] [place] [address], [facility] Pcp:Peyman Dunn MD Subjective: * Chief Complaints: [...] Sign off status: Pending * Provider: Russ aBxter MD Date: 02/08/2024 Generated for Jo Ann ceja/Faemileeg/eTransmitting on: 03/28/2025 12:00 PM EDT
--- OUTSIDE RECORDS SUMMARY | 2025-03-28 12:00 | XMS_ITS | Data Portability ---
Author Organization [place] - [facility], Allergy Address [address] [place] [phone] Care Team Providers Care Over [employer] Targeting Supervisor Name Role Phone SHERI HILL Primary Care Provider [phone] Assessment Encounter Date Assessment Date Assessment LastModified by Organization Details LastModified Time 07/10/2024 07/10/2024 Right tympanic membrane is intact with aerated middle ear space. Left T-tube is in good position and patent. Patient currently pleased with his auditory performance and how his ears are feeling in general. We will continue with observation of this tube and have him follow-up with physician community program assistant in 6 months. [email or web address] Not available 07/10/2024 11:30:21 01/08/2025 01/08/2025 49-year-old male with extensive history of ETD presents for reevaluation. On examination the right drum remains scarred but with well aerated middle ear space. No retraction or over insufflation. Left tube remains in place and patent. Continue observation and follow-up in 6 months. [email or web address] Not available 01/08/2025 11:36:41 Plan of Treatment Reminders Order Date Submit Date Provider Last Modified By Organization Details Last Modified Time Details Appointments Establish ed 15 2024 10:15A M ARDEN SILVA PA-C Not available Not available Not available Lab None recorded. Referral None recorded. Procedures None recorded. Surgeries None recorded. Imaging None recorded. Medication Orders None recorded. Patient TargetsNo targets recorded. Patient InstructionsNo instructions recorded. Reason for Referral None Reported. Problems Name Problem SNOMED Code Status Onset Date Resolution Date Notes Provider Name and Address Organization Details Recorded Time Otorrhea 37339045 Completed 201304/28/2024 Otorrhea ; Note: Date Diagnose d: 4 3:36 PM (388.60) Not Available [facility] 4 02:20:10 Chronic left myringit is 14521526488 72321 Completed 201904/28/2024 Chronic myringit is, left ear; Note: Date Diagnose d: 07/11/20 20 9:44 AM (H73.12) Not Available [facility] 4 02:20:02 Conducti ve hearing loss 32627458 Active 2015 Conducti ve hearing loss, unilater al, right ear, with unrestri cted hearing on the contrala teral side; Note: Date Diagnose d: 6 4:27 PM (H90.11) Not Available [facility] 4 02:20:11 Acute myringit is of left ear 75120967112 83947 Active 2019 Acute myringit is, left ear; Note: Date Diagnose d: 0 9:33 AM (H73.002 ) Not Available [facility] 4 02:19:45 Obstruct jeff sleep apnea syndrome 92059894 Active 2021 Obstruct jeff sleep apnea (adult) (pediatr ic); Note: Date Diagnose d: 2 2:19 PM (G47.33) Not Available [facility] 4 02:19:44 Bilatera l disorder of Eustachi an tubes 08953776038 43076 Active 2015 Other specifie d disorder s of Eustachi an tube, bilatera l; Note: Date Diagnose d: 6 3:50 PM (H69.83) Not Available [facility] 4 02:19:34 Otorrhea of left ear 75766563619 35559 Active 2019 Otorrhea , left ear; Note: Date Diagnose d: 07/11/20 20 9:45 AM (H92.12) Not Available [facility] 4 02:20:06 Abnormal granulat ion tissue 21928697 Completed 201304/28/2024 Other abnormal granulat ion tissue; Note: Date Diagnose d: 4 3:36 PM (701.5) Not Available [facility] 4 02:19:39 Mixed conducti ve and sensorin eural hearing loss, bilatera l 060292854 Active 2018 Mixed conducti ve and sensorin eural hearing loss, bilatera l; Note: Date Diagnose d: 9 10:40 AM (H90.6) Not Available [facility] 4 02:19:40 Mixed conducti ve and sensorin eural hearing loss of left ear 95471459215 107 Active 2021 Mixed conducti ve and sensorin eural hearing loss, unilater al, left ear, with unrestri cted hearing on the contrala teral side; Note: Date Diagnose d: 6 4:27 PM (H90.72) ; Start Date : 05/25/20 16 Mixed conducti ve and sensorin eural hearing loss, unilater al, left ear with restrict ed hearing on the contrala teral side; Note: Date Diagnose d: 2 2:22 PM (H90.A32 ) Not Available [facility] 4 02:19:34 Sensorin eural hearing loss in right ear 39725257594 100 Active 2021 Sensorin eural hearing loss, unilater al, right ear, with restrict ed hearing on the contrala teral side; Note: Date Diagnose d: 2 2:22 PM (H90.A21 ) Not Available [facility] 4 02:19:55 Marginal perforat ion of tympanic membrane 83085979 Completed 201804/28/2024 Other marginal perforat ions of tympanic membrane , left ear; Note: Date Diagnose d: 9 3:56 PM (H72.2X2 ) Not Available [facility] 4 02:19:34 Impacted cerumen in right ear 31631391976 87846 Active 2018 Impacted cerumen, right ear; Note: Date Diagnose d: 07/12/20 19 1:19 PM (H61.21) Not Available [facility] 4 02:20:05 Chronic serous otitis media of right ear 119525428 Active 2016 Chronic serous otitis media, right ear; Note: Changed from H65.01 to H65.21 (10/20/19 19 10:45 AM) , Date Diagnose d: 7 3:35 PM (H65.01) Not Available [facility] 4 02:19:22 Sensorin eural hearing loss 92942375 Active 2015 Sensorin eural hearing loss, unilater al, left ear, with unrestri cted hearing on the contrala teral side; Note: Date Diagnose d: 6 3:50 PM (H90.42) Not Available [facility] 4 02:19:20 Conducti ve hearing loss, bilatera l 402214034 Active 2014 Conducti ve HL, bilatera l; Note: Date Diagnose d: 5 9:19 AM (389.06) Not Available [facility] 4 02:19:31 Abnormal auditory percepti on 18468279 Active 2019 Other abnormal auditory percepti ons, bilatera l; Note: Date Diagnose d: 0 1:35 PM (H93.293 ) Not Available [facility] 4 02:19:45 Chronic mucoid otitis media of left middle ear 98795387467 73691 Active 2019 Chronic mucoid otitis media, left ear; Note: Date Diagnose d: 0 9:04 AM (H65.32) Not Available [facility] 4 02:19:17 Problem Notes None recorded. Medical Equipment None Reported. Medications Name Sig Start Date Stop Date Status Note LastModified by Organization Details LastModified Time atorvasta tin 20 mg tablet TAKE 1 TABLET BY MOUTH AT BEDTIME active Not Available Not Available No t Available tizanidin e 4 mg tablet TAKE 1 TABLET BY MOUTH TWICE DAILY NEEDED FOR MUSCLE SPASMS active Not Available Not Available No t Available warfarin 7.5 mg tablet 07/10 completed Medicati on ID: [id number] D uration Value: 30 Brand Name: warfarin Send Method: E-Prescr ibed Sub s Allowed: subs OK Speci al Instruct ion: TK 1 PO QD Medic ationGen ericName : warfarin Not Available Not Available Not Available sertralin e 100 mg tablet TAKE 1 TABLET BY MOUTH DAILY active Not Available Not Available No t Available permethri n 5 % topical cream 07/11 completed Medicati on ID: [id number] D uration Value: 1 Brand Name: permethr in Send Method: E-Prescr ibed Sub s Allowed: subs OK Speci al Instruct ion: SERGIO FROM HEAD TO TOE AND RINSE AFTER 12 H UTD Medi cation nericNam e: permethr in Not Available Not Available Not Available ciproflox acin 500 mg tablet TAKE 1 TABLET BY MOUTH TWICE DAILY FOR 14 DAYS 01/08 completed Not Available Not Available Not Available acetamino phen 500 mg tablet TAKE 2 TABLETS BY MOUTH EVERY 6 HOURS NEEDED FOR PAIN active Not Available Not Available No t Available ketorolac 0.5 % eye drops INSTILL 1 DROP IN BOTH EYES TWICE DAILY active Not Available Not Available No t Available propranol ol 10 mg tablet TAKE 1 TABLET BY MOUTH TWICE DAILY active Not Available Not Available No t Available hydromorp cornelius 2 mg tablet 06/17 completed Medicati on ID: [id number] B rand Name: hydromor phone Se nd Method: E-Prescr ibed Sub s Allowed: subs OK Medic ationGen ericName : hydromor phone Not Available Not Available Not Available Lovenox 100 mg/mL subcutane ous syringe 06/17 completed Medicati on ID: [id number] B rand Name: Lovenox Send Method: E-Prescr ibed Sub s Allowed: subs OK Medic ationGen ericName : Lovenox Not Available Not Available Not Available ascorbic acid (vitamin C) 500 mg tablet TAKE 1 TABLET BY MOUTH ONCE DAILY active Not Available Not Available No t Available Cartia XT 120 mg capsule,e xtended release 06/17 completed Medicati on ID: [id number] D uration Value: 30 Brand Name: Cartia XT Send Method: E-Prescr ibed Sub s Allowed: subs OK Speci al Instruct ion: TK ONE C PO D Medica tionGene ricName: Cartia XT Not Available Not Available Not Available cephalexi n 500 mg capsule TAKE 1 CAPSULE BY MOUTH EVERY 6 HOURS FOR 10 DAYS 07/10 completed Not Available Not Available Not Available warfarin 5 mg tablet 07/11 completed Medicati on ID: [id number] D uration Value: 30 Brand Name: warfarin Send Method: E-Prescr ibed Sub s Allowed: subs OK Speci al Instruct ion: TK 1 T PO QD Medic ationGen ericName : warfarin Not Available Not Available Not Available omeprazol e 20 mg capsule,d elayed release TAKE 1 CAPSULE BY MOUTH DAILY active Not Available Not Available No t Available oxcarbaze pine 600 mg tablet 07/11 completed Medicati on ID: [id number] D uration Value: 30 Brand Name: oxcarbaz epine Se nd Method: E-Prescr ibed Sub s Allowed: subs OK Speci al Instruct ion: TK 1 T PO BID Medi cationGe nericNam e: oxcarbaz epine Not Available Not Available Not Available folic acid 1 mg tablet TAKE 1 TABLET BY MOUTH DAILY active Not Available Not Available No t Available bisacodyl 5 mg tablet,de layed release 06/17 completed Medicati on ID: [id number] D uration Value: 30 Brand Name: bisacody l Send Method: E-Prescr ibed Sub s Allowed: subs OK Speci al Instruct ion: TK 1 T PO BID PRN Medi cationGe nericNam e: bisacody l Not Available Not Available Not Available mirtazapi ne 15 mg tablet 10/20 completed Medicati on ID: [id number] D uration Value: 30 Reason: () Brand Name: mirtazap ine Send Method: E-Prescr ibed Sub s Allowed: subs OK Speci al Instruct ion: TK 1 T PO QHS Medi cationGe nericNam e: mirtazap ine Not Available Not Available Not Available gabapenti n 100 mg capsule 07/10 completed Medicati on ID: [id number] B rand Name: gabapent in Send Method: E-Prescr ibed Sub s Allowed: subs OK Medic ationGen ericName : gabapent in Not Available Not Available Not Available propranol ol 20 mg tablet TAKE 1 AND 1/2 TABLETS BY MOUTH TWICE DAILY active Not Available Not Available No t Available topiramat e 100 mg tablet 10/20 completed Medicati on ID: [id number] D uration Value: 30 Reason: () Brand Name: topirama te Send Method: E-Prescr ibed Sub s Allowed: subs OK Speci al Instruct ion: TK 1 T PO BID Medi cationGe nericNam e: topirama te Not Available Not Available Not Available multivita min capsule active Medicati on ID: [id number] B rand Name: multivit green Sen d Method: E-Prescr ibed Sub s Allowed: subs OK Medic ationGen ericName : multivit green Not Available Not Available Not Available sertralin e 50 mg tablet 07/10 completed Medicati on ID: [id number] B rand Name: sertrali ne Send Method: E-Prescr ibed Sub s Allowed: subs OK Medic ationGen ericName : sertrali ne Not Available Not Available Not Available naproxen 500 mg tablet TAKE 1 TABLET BY MOUTH TWICE DAILY 01/08 completed Not Available Not Available Not Available Vitamin B-12 1,000 mcg tablet active Medicati on ID: [id number] B rand Name: Vitamin B-12 Sen d Method: E-Prescr ibed Sub s Allowed: subs OK Medic ationGen ericName : Vitamin B-12 Not Available Not Available Not Available ciclopiro x 0.77 % topical gel APPLY TOPICALL Y TO THE AFFECTED AREA TWICE DAILY 07/10 completed Not Available Not Available Not Available neomycin- polymyxin -hydrocor t 3.5 mg-10,000 unit/mL-1 % ear drops,manan p 12/11 completed Medicati on ID: [id number] Pr escribed By Name: EMELIA Gipson nd Name: neomycin -polymyx in-HC Se nd Method: E-Prescr ibed Sub s Allowed: subs OK Speci al Instruct ion: 4 drops left ear BID X 14 days Med icationG enericNa me: neomycin -polymyx in-HC Not Available Not Available Not Available TobraDex 0.3 %-0.1 % eye drops,manan pension 07/10 completed Medicati on ID: [id number] D uration Value: 10 Prescri bed By Name: Saúl Hammond nd Name: TobraDex Send Method: E-Prescr ibed Sub s Allowed: subs OK Speci al Instruct ion: Instill 4 drops in the affected ear twice a day for 10 days Med [facility] enericNa me: TobraDex Not Available Not Available Not Available bupropion HCl SR 200 mg tablet,12 hr sustained -release 10/20 completed Medicati on ID: [id number] D uration Value: 30 Reason: () Brand Name: bupropio n HCl Send Method: E-Prescr ibed Sub s Allowed: subs OK Specclifton al Instruct ion: TK 1 T PO BID Medi cationGe nericNam e: bupropio n HCl Not Available Not Available Not Available ciclopiro x 0.77 % topical cream APPLY TOPICALL Y TO THE AFFECTED AREA TWICE DAILY 07/10 completed Not Available Not Available Not Available Ciprodex 0.3 %-0.1 % ear drops,manan pension 4 drop into right ear 07/10 completed Medicati on ID: [id number] D uration Value: 7 Prescri bed By Name: Saúl Hammond nd Name: Ciprodex Send Method: E-Prescr ibed Sub s Allowed: subs MARTITA daley Instruct ion: x 1 week [facility] C[facility] Not Available Not Available Not Available ursodiol 500 mg tablet TAKE 1 TABLET EVERY MORNING AND 2 TABLETS BY MOUTH EVERY EVENING active Not Available Not Available No t Available tizanidin e 4 mg capsule TAKE 1 CAPSULE BY MOUTH TWICE DAILY NEEDED FOR MUSCLE SPASMS active Not Available Not Available No t Available Lubricant Eye Drops 0.5 % INSTILL 1 DROP IN BOTH EYES TWICE DAILY active Not Available Not Available No t Available zolpidem ER 12.5 mg tablet,ex tended release,m ultiphase TAKE 1 TABLET BY MOUTH AT BEDTIME NEEDED FOR SLEEP active Not Available Not Available No t Available Calcium 600 active Not Available Not Available Not Available ProAir HFA 90 mcg/actua tion aerosol inhaler 07/11 completed Medicati on ID: [id number] D uration Value: 16 Brand Name: ProAir HFA Send Method: E-Prescr ibed Sub s Allowed: subs OK Speci al Instruct ion: INHALE 1 TO 2 PFS PO Q 4 TO 6 H PRF DIFFICUL TY BREATHIG N Medica tionGene ricName: ProAir HFA Not Available Not Available Not Available FeroSul 325 mg (65 mg iron) tablet TAKE 1 TABLET BY MOUTH DAILY active Not Available Not Available No t Available cholecalc iferol (vitamin D3) 50 mcg (2,000 unit) capsule TAKE 1 CAPSULE BY MOUTH DAILY active Not Available Not Available No t Available cholecalc iferol (vitamin D3) 50 mcg (2,000 unit) tablet 07/10 completed Medicati on ID: [id number] B rand Name: cholecal ciferol (vitamin D3) Send Method: E-Prescr ibed Sub s Allowed: subs OK Medic ationGen ericName : cholecal ciferol (vitamin D3) Not Available Not Available Not Available Eliquis 5 mg tablet TAKE 1 TABLET BY MOUTH TWICE DAILY active Not Available Not Available No t Available potassium chloride ER 20 mEq tablet,ex tended release 07/11 completed Medicati on ID: [id number] D uration Value: 30 Brand Name: gracia mcpherson chloride Send Method: E-Prescr ibed Sub s Allowed: subs OK Speci al Instruct ion: TK 1 T PO QD [facility] gracia mcpherson chloride Not Available Not Available Not Available Vitals Date Recorded Body height Body mass index (BMI) Body weight Provider Name and Address Organization Details Last Updated DateTime 01/08/2025 172.72 cm 27.4 kg/m2 55756.63 g Abby Nagel [place] - [facility] 01/08/2025 11:00:09 Social History None recorded. Functional Status None recorded. Mental Status None recorded. Family History Nothing Reported. Medical History Condition Response Diabetes Y Arthritis Y Stroke Y Hypertension Y Past Encounters Encounter ID Performer Location Encounter Start Date Encounter Closed Date Diagnosis/Indication Diagnosis SNOMED-CT Code Diagnosis ICD10 Code Diagnosis Note [id number] TOMER DUNBAR MD [facility] [address] [address] 07/10/2024 09:41:31 07/10/2024 11:29:44 Bilateral disorder of Eustachian tubes [id number] 300665 H69.83 [id number] ARDEN SILVA PA-C [facility] [address] [place] [address] 01/08/2025 10:53:21 01/08/2025 11:10:01 Bilateral disorder of Eustachian tubes 9335897686 120922 H69.83 Health Concerns Section Related Observation LastModified by Organization Detai ls LastModified Time None Recorded Concern Status LastModified by Organization Details LastModified Time None Recorded Advance Directives Directive None Recorded Payers Insurance Date Sequence Insurance Name Policy Number Policy Fajardo Covered Member ID Fajardo Member ID Guarantor Name 01/01/2025 1 [facility] - DOS ON OR AFTER 2022 - MEDICARE [place]ANTAGE [place]ARE RE[place]ACEMENT/ADV ANTAGE - PPO) Kailash Ndiaye [id number] Kailash Ndiaye 01/07/2025 1 [facility] - DOS ON OR AFTER 2022 - ONE CARE (MEDICARE REPLACEMENT/ADV ANTAGE - HMO) Kailash Ndiaye [id number] Kailash Ndiaye Notes Date Note Type Note Provider Name and Address Organization Details Recorded Time 07/10/2024 text/html 48-year-old male with longstanding history of eustachian tube dysfunction, status post bilateral balloon dilation of the eustachian tubes, right myringotomy with tube placement and left tube removal with paper patch myringoplasty in October 2018 left T-tube replaced in April 2020 last seen 6 months ago at which point the left tube was in place and the right side was showing a middle ear effusion. I recommended getting a Eustachi device to insufflate the middle ear. He did not end up getting this because the ear had been feeling much better. TOMER DUNBAR MD [address] [address], [place], [address], [facility] - [facility] 07/10/2024 11:30:57 01/08/2025 text/html 48-year-old male with longstanding history of eustachian tube dysfunction. Status post bilateral balloon dilation of the eustachian tubes with right myringotomy and tube placement and left tube removal with paper patch myringoplasty in October 2018. Left T-tube replaced in April 2020. At last visit left tube was in place and patent. The right tube was extruded and middle ear space was well aerated. He continues to have ETD and pops his ears frequently. Hearing stable. TOMER DUNBAR MD [address] [place] [address], [phone], [facility] - [facility] 01/09/2025 16:38:34
--- OUTSIDE RECORDS SUMMARY | 2025-03-28 12:00 | XMS_ITS | Clinical Summary ---
Author Organization [facility], Address [address] [place] [address] [place] [address] Phone Care Team Providers Care Cylinder Inspector And Tester Name Role Phone Peyman Dunn MD Primary Care Provider [phone] Allergies Active Allergy Reactions Criticality Noted Date [...] injury 11/23/2019 09/16/2021 Cerebrovascular accident 11/23/2019 Immunizations Immunization Administration Dates Next Due [facility] SARS-COV-2 07/11/2021 Family History Medical [...] Health Maintenance Due Date Last Done Comments Hepatitis B Vaccine (1 of 3 - 19+ 3-dose series) 09/21 Pneumococcal Vaccine: Peds ( 0 to 5 Years) and At-Risk Patients (6 to 49 Years) (1 of 2 - PCV) 1996 Influenza Vaccine (Season Ended) 2025 Insurance [facility] [place] [id number] [address] [place] [id number] Care Teams Cylinder Inspector And Tester Relationship Specialty Start Date End Date Peyman Dunn MD [facility] INTERNAL ID [id number] [place] PCP - General 08/01/19
--- OUTSIDE RECORDS SUMMARY | 2025-03-28 12:00 | XMS_ITS | Clinical Summary ---
Author Organization [employer] Address [address] [address] [place] [address] Care Team Providers Care Associate Publisher Name Role Phone Unavailable Primary Care Provider [...] Done Comments CT Colonography 1977 Colonoscopy 1977 Depression Screening 1977 FIT DNA/Cologuard 1977 FIT 1977 HIV Screening 1977 Lipid Panel 1977 SDOH Screening 1977 Sigmoidoscopy 1977 Disability Screening 1977 Alcohol/Substance Use Screening 1989 Family Planning (PISQ) 1992 Hepatitis A Vaccines (1 of 2 - Risk 2-dose series) 1996 Hepatitis B Vaccines (1 of 3 - 19+ 3-dose series) 1996 Dental Oral Exam 06/25/2018 12/22/2017 Dental X-Ray: Bitewings 12/23/2018 12/22/2017 Dental Prophylaxis 01/31/2019 08/02/2018 Dental X-Ray: Full Mouth 12/23/2020 12/22/2017 Colorectal Cancer Screening 07/31/2021 FOBT 07/31/2021 07/31/2020 COVID-19 Vaccine ( - 2023- season) 2024 03/05/2022, 07/11/2021 Tobacco Screening 05/22/2025 05/22/2024 Influenza Vaccine (Season Ended) 2025 07/20/2023, 07/21/2022, 08/02/2019, Additional history exists Zoster Vaccines (1 of 2) 2027 DTaP/Tdap/Td Vaccines (3 - Td or Tdap) 04/04/2034 04/04/2024, 10/03/2015 RSV Patients and Patients Aged 60 years or older (1 - 1-dose 75+ series) 2052 Pneumococcal Vaccine: Pediatrics (0 to 5 Years) and At-Risk Patients (6 to 49) Years Aged Out 11/07/2019, 11/23/2017 No longer eligibl e based on patient's age to complete this topic Hepatitis C Screening Completed 12/17/2021 HIB Vaccines Aged Out No longer eligi ble based on patient's age to complete this topic HPV Vaccines Aged Out No longer eligi ble based on patient's age to complete this topic IPV Vaccines Aged Out No longer eligi ble based on patient's age to complete this topic Meningococcal B Vaccine Aged Out No l onger eligible based on patient's age to complete [...] Patient Date of Phone Billing Address Personal/Family [address] [place] [id number] [facility] MEDICAID STAND [facility]ULT [facility]
--- OUTSIDE RECORDS SUMMARY | 2025-03-28 12:00 | XMS_ITS | Patient Health Record ---
Author Organization [facility] Address [address] [place] [address] Care Team Providers Care Pearl Maker Name Role Phone Peyman Dunn Primary Care Provider Keely Treviño Unavailable [phone] Allergies Allergen (clinical drug ingredient) Drug/Non Drug [...] Notes Problem Ulcer of right foot (disorder) (506811808) Ulcer of right foot with fat layer exposed (L97.512) Active confirmed Vital Signs Blood pressure diastolic 79 mm Hg 04/14/2024 Height 5ft 8in in 07/03/2024 Blood pressure systolic 129 mm Hg 04/14/2024 Weight 185 lbs 07/03/2024 BMI 28.13 kg/m2 07/03/2024 Encounters Encounter Location Date Provider Diagnosis [facility] [address] [address] 04/04/2024 Keely Perica Pain in right toe(s) M79.674 ; Open displaced fracture of distal phalanx of right great toe, initial encounter S92.421B and Contusion of right great toe with damage to nail, initial encounter S90.211A [facility] [address] [address] 04/14/2024 Keely Perica Pain in right toe(s) M79.674 ; Open displaced fracture of distal phalanx of right great toe, initial encounter S92.421B ; Contusion of right great toe with damage to nail, initial encounter S90.211A and Ulcer of right foot with fat layer exposed L97.512 [facility] [address] [address] 05/12/2024 Keely Charles Pain in right toe(s) M79.674 and Closed displaced fracture of distal phalanx of right great toe with routine healing S92.421D [facility] [address] [address] 07/03/2024 Keely Charles Closed displaced fracture of distal phalanx of right great toe with routine healing S92.421D [facility] [address] 04/04/2024 Keely Charles [address] [address] 04/13/2024 Keely Charles Assessments Encounter Date Diagnosis [...] Insured Coverage Start Date Coverage End Date [facility] [employer] Claims [address] [place] [id number] [phone] [id number] Kailash Ndiaye Self - patient is the insured Medical (General) History Medical History History ICD Code Anxiety Broken bones Crohns disease Colitis Depression Hiatal hernia High blood pressure Poor circulation Chicken pox Transfusions [facility]SC Surgical History Surgery Date(Month/Year) colon removed Ostemy reversal right heel surgery colonoscopy Hospitalization History Reason Date(Month/Year) ER [facility]- Broken toe 04/03/24
[2025-03-28 12:18] LABS: INTERNATIONAL NORM RATIO 1.2 (0.9-1.1); Prothrombin Time 13.2 SEC (10.9-12.4)
[2025-03-28 12:43] LABS: Alanine Aminotransferase 138 U/L (0-40); Albumin Level 3.5 g/dL (3.5-5.0); Alkaline Phosphatase 288 U/L (39-117); Anion Gap 12 (12-20); Aspartate Amino Transferase 142 U/L (5-37); Blood Urea Nitrogen 9 mg/dL (9-16); Calcium 9.2 mg/dL (8.4-10.2); Carbon Dioxide 24 mmol/L (22-29); Chloride 108 mmol/L (96-108); Estimated Glomerular Filt Rate > 60; Potassium 3.1 mmol/L (3.3-5.1); Sodium 141 mmol/L (135-145); Total Protein 7.4 g/dL (6.5-8.0)
== END 2025-03-28 11:14 | disposition home or self-care (01) ==
LOC: HO.LAB 11:13
PROVIDERS: Visit Provider Internal Medicine
DX: K71.9 Toxic liver disease, unspecified (principal); K83.01 Primary sclerosing cholangitis
CPT/HCPCS: 36415; 80053; 85610; 86301

== ENCOUNTER 2025-04-09 11:33 | Outpatient (REF) | payer OTHER, SELFPAY ==
--- OUTSIDE RECORDS SUMMARY | 2024-02-08 10:20 | XMS_ITS ---
Author Organization [facility] Address [address] [place] [address] Care Team Providers Care Child Care Supervisor Name Role Phone Peyman Dunn MD Primary Care Provider Arturo Nelson [phone] Nivia Hidalgo Unavailable Unavailable REASON FOR VISIT Patient presents today for ELEVATED LFT'S Encounters Encounter Location Date Provider Diagnosis [facility] [address] [place] [phone] 02/08/2024 Arturo Baxter Plan Of Treatment No Information Progress Notes * RODRICK BUTLEROB:1975 ( 49 yo M)Acc No.[id number]:02/08/2024 Progress Notes Patient: GIOVANNA RAINEY Provider: Russ Baxter MD :1975 A ge:48 Y S ex:Male Date:02/08/2024 Address:[address] [place] [address], [facility] Pcp:Peyman Dunn MD Subjective: * Chief Complaints: [...] 02/08/2024 Generated for Jo Ann ng/Faemileeg/eTransmitting on: 04/09/2025 12:44 PM EDT
[2025-04-09 12:35] LABS: Hematocrit 39.8 % (42.0-52.0); Hemoglobin 13.0 g/dl (14.0-18.0); Mean Corpuscular HGB Conc 32.7 g/dl (31.0-36.0); Mean Corpuscular Hemoglobin 31.8 pg (27.0-33.0); Mean Corpuscular Volume 97.3 fL (80.0-98.0); NRBC Abs Auto 0.000 X10*3/uL (0.0-0.012); NRBC Pct Auto 0.0 /100WBC (0.0-0.2); Platelet Count 215 X10*3/uL (160-400); Red Blood Count 4.09 X10*6/uL (4.60-5.80); White Blood Count 8.0 X10*3/uL (4.8-10.8)
[2025-04-09 12:38] LABS: INTERNATIONAL NORM RATIO 1.1 (0.9-1.1); Prothrombin Time 12.5 SEC (10.9-12.4)
--- OUTSIDE RECORDS SUMMARY | 2025-04-09 12:44 | XMS_ITS | Data Portability ---
Author Organization [place] - [facility], Allergy Address [address] [place] [address] Care Team Providers Care Collection Agent Name Role Phone SHERI HILL Primary Care Provider [phone] Assessment Encounter Date Assessment Date Assessment LastModified by Organization Details LastModified Time 07/10/2024 07/10/2024 Right tympanic membrane is intact with aerated middle ear space. Left T-tube is in good position and patent. Patient currently pleased with his auditory performance and how his ears are feeling in general. We will continue with observation of this tube and have him follow-up with physician tv production assistant in 6 months. [email or web address] Not available 07/10/2024 11:30:21 01/08/2025 01/08/2025 49-year-old male with extensive history of ETD presents for reevaluation. On examination the right drum remains scarred but with well aerated middle ear space. No retraction or over insufflation. Left tube remains in place and patent. Continue observation and follow-up in 6 months. Not available 01/08/2025 11:36:41 Plan of Treatment [...] and Address Organization Details Recorded Time Otorrhea [id number] Completed 201304/28/2024 Otorrhea ; Note: Date Diagnose d: 4 3:36 PM (388.60) Not Available [facility] 4 02:20:10 Chronic left myringit is 11989591231 30700 Completed 201904/28/2024 Chronic myringit is, left ear; Note: Date Diagnose d: 07/11/20 20 9:44 AM (H73.12) Not Available [facility] 4 02:20:02 Conducti ve hearing loss 21889025 Active 2015 Conducti ve hearing loss, unilater al, right ear, with unrestri cted hearing on the contrala teral side; Note: Date Diagnose d: 6 4:27 PM (H90.11) Not Available [facility] 4 02:20:11 Acute myringit is of left ear 85005824174 89580 Active 2019 Acute myringit is, left ear; Note: Date Diagnose d: 0 9:33 AM (H73.002 ) Not Available [facility] 4 02:19:45 Obstruct jeff sleep apnea syndrome 32298684 Active 2021 Obstruct jeff sleep apnea (adult) (pediatr ic); Note: Date Diagnose d: 2 2:19 PM (G47.33) Not Available [facility] 4 02:19:44 Bilatera l disorder of Eustachi an tubes 03194034243 83050 Active 2015 Other specifie d disorder s of Eustachi an tube, bilatera l; Note: Date Diagnose d: 6 3:50 PM (H69.83) Not Available [facility] 4 02:19:34 Otorrhea of left ear 33361384191 84406 Active 2019 Otorrhea , left ear; Note: Date Diagnose d: 07/11/20 20 9:45 AM (H92.12) Not Available [facility] 4 02:20:06 Abnormal granulat ion tissue 41311166 Completed 201304/28/2024 Other abnormal granulat ion tissue; Note: Date Diagnose d: 4 3:36 PM (701.5) Not Available [facility] 4 02:19:39 Mixed conducti ve and sensorin eural hearing loss, bilatera l 485436443 Active 2018 Mixed conducti ve and sensorin eural hearing loss, bilatera l; Note: Date Diagnose d: 9 10:40 AM (H90.6) Not Available [facility] 4 02:19:40 Mixed conducti ve and sensorin eural hearing loss of left ear 84891012267 107 Active 2021 Mixed conducti ve and [...] 2 2:22 PM (H90.A32 ) Not Available [facility] 4 02:19:34 Sensorin eural hearing loss in right ear 00391677609 100 Active 2021 Sensorin eural hearing loss, unilater al, right ear, with restrict ed hearing on the contrala teral side; Note: Date Diagnose d: 2 2:22 PM (H90.A21 ) Not Available [facility] 4 02:19:55 Marginal perforat ion of tympanic membrane 29324867 Completed 201804/28/2024 Other marginal perforat ions of tympanic membrane , left ear; Note: Date Diagnose d: 9 3:56 PM (H72.2X2 ) Not Available [facility] 4 02:19:34 Impacted cerumen in right ear 19896438165 45152 Active 2018 Impacted cerumen, right ear; Note: Date Diagnose d: 07/12/20 19 1:19 PM (H61.21) Not Available [facility] 4 02:20:05 Chronic serous otitis media of right ear 677117062 Active 2016 Chronic serous otitis media, right ear; Note: Changed from H65.01 to H65.21 (10/20/19 19 10:45 AM) , Date Diagnose d: 7 3:35 PM (H65.01) Not Available [facility] 4 02:19:22 Sensorin eural hearing loss 35047917 Active 2015 Sensorin eural hearing loss, unilater al, left ear, with unrestri cted hearing on the contrala teral side; Note: Date Diagnose d: 6 3:50 PM (H90.42) Not Available [facility] 4 02:19:20 Conducti ve hearing loss, bilatera l 031328299 Active 2014 Conducti ve HL, bilatera l; Note: Date Diagnose d: 5 9:19 AM (389.06) Not Available [facility] 4 02:19:31 Abnormal auditory percepti on 99377291 Active 2019 Other abnormal auditory percepti ons, bilatera l; Note: Date Diagnose d: 0 1:35 PM (H93.293 ) Not Available [facility] 4 02:19:45 Chronic mucoid otitis media of left middle ear 45693058056 10570 Active 2019 Chronic mucoid otitis media, left ear; Note: Date Diagnose d: 0 9:04 AM (H65.32) Not Available [facility] 4 02:19:17 Problem Notes None recorded. Medical [...] mg tablet 07/10 completed Medicati on ID: [id number] D uration Value: 30 Brand Name: warfarin [...] topical cream 07/11 completed Medicati on ID: [id number] D uration Value: 1 Brand Name: permethr [...] mg tablet 06/17 completed Medicati on ID: [id number] B rand Name: hydromor phone Se nd Method: E-Prescr ibed Sub s Allowed: subs OK Medic ationGen ericName : hydromor phone Not Available Not Available Not Available Lovenox 100 mg/mL subcutane ous syringe 06/17 completed Medicati on ID: [id number] B rand Name: Lovenox Send Method: E-Prescr ibed Sub s Allowed: subs OK Medic ationGen ericName : Lovenox Not Available Not Available Not Available ascorbic acid (vitamin C) 500 mg tablet TAKE 1 TABLET BY MOUTH ONCE DAILY active Not Available Not Available No t Available Cartia XT 120 mg capsule,e xtended release 06/17 completed Medicati on ID: [id number] D uration Value: 30 Brand Name: Cartia [...] mg tablet 07/11 completed Medicati on ID: [id number] D uration Value: 30 Brand Name: warfarin [...] mg tablet 07/11 completed Medicati on ID: [id number] D uration Value: 30 Brand Name: oxcarbaz [...] layed release 06/17 completed Medicati on ID: [id number] D uration Value: 30 Brand Name: bisacody l Send Method: E-Prescr ibed Sub s Allowed: subs OK Speci al Instruct ion: TK 1 T PO BID PRN Medi cationGe nericNam e: bisacody l Not Available Not Available Not Available mirtazapi ne 15 mg tablet 10/20 completed Medicati on ID: [id number] D uration Value: 30 Reason: () Brand Name: mirtazap ine Send Method: E-Prescr ibed Sub s Allowed: subs OK Speci al Instruct ion: TK 1 T PO QHS Medi cationGe nericNam e: mirtazap ine Not Available Not Available Not Available gabapenti n 100 mg capsule 07/10 completed Medicati on ID: [id number] B rand Name: gabapent in Send Method: E-Prescr ibed Sub s Allowed: subs OK Medic ationGen ericName : gabapent in Not Available Not Available Not Available propranol ol 20 mg tablet TAKE 1 AND 1/2 TABLETS BY MOUTH TWICE DAILY active Not Available Not Available No t Available topiramat e 100 mg tablet 10/20 completed Medicati on ID: [id number] D uration Value: 30 Reason: () Brand Name: topirama te Send Method: E-Prescr ibed Sub s Allowed: subs OK Speci al Instruct ion: TK 1 T PO BID Medi cationGe nericNam e: topirama te Not Available Not Available Not Available multivita min capsule active Medicati on ID: [id number] B rand Name: multivit green Sen d Method: E-Prescr ibed Sub s Allowed: subs OK Medic ationGen ericName : multivit green Not Available Not Available Not Available sertralin e 50 mg tablet 07/10 completed Medicati on ID: [id number] B rand Name: sertrali ne Send Method: E-Prescr ibed Sub s Allowed: subs OK Medic ationGen ericName : sertrali ne Not Available Not Available Not Available naproxen 500 mg tablet TAKE 1 TABLET BY MOUTH TWICE DAILY 01/08 completed Not Available Not Available Not Available Vitamin B-12 1,000 mcg tablet active Medicati on ID: [id number] B rand Name: Vitamin B-12 Sen d [...] drops,manan p 12/11 completed Medicati on ID: [id number] Pr escribed By Name: EMELIA Gipson nd Name: neomycin -polymyx in-HC Se nd Method: E-Prescr ibed Sub s Allowed: subs OK Speci al Instruct ion: 4 drops left ear BID X 14 days Med icationG enericNa me: neomycin -polymyx in-HC Not Available Not Available Not Available TobraDex 0.3 %-0.1 % eye drops,manan pension 07/10 completed Medicati on ID: [id number] D uration Value: 10 Prescri bed By Name: Saúl Hammond nd Name: TobraDex Send Method: E-Prescr ibed Sub s Allowed: subs OK Speci al Instruct ion: Instill 4 drops in the affected ear twice a day for 10 days Med [facility] enericNa me: TobraDex Not Available Not Available Not Available bupropion HCl SR 200 mg tablet,12 hr sustained -release 10/20 completed Medicati on ID: [id number] D uration Value: 30 Reason: () Brand [...] right ear 07/10 completed Medicati on ID: [id number] D uration Value: 7 Prescri bed By Name: Saúl Hammond nd Name: Ciprodex Send Method: E-Prescr ibed Sub s Allowed: subs MARTITA daley Instruct ion: x 1 week Med [facility] C[facility] Not Available Not Available [...] aerosol inhaler 07/11 completed Medicati on ID: [id number] D uration Value: 16 Brand Name: ProAir [...] unit) tablet 07/10 completed Medicati on ID: [id number] B rand Name: cholecal ciferol (vitamin D3) Send Method: E-Prescr ibed Sub s Allowed: subs OK Medic ationGen ericName : cholecal ciferol (vitamin D3) Not Available Not Available Not Available Eliquis 5 mg tablet TAKE 1 TABLET BY MOUTH TWICE DAILY active Not Available Not Available No t Available potassium chloride ER 20 mEq tablet,ex tended release 07/11 completed Medicati on ID: [id number] D uration Value: 30 Brand Name: gracia mcpherson chloride Send Method: E-Prescr ibed Sub s Allowed: subs OK Speci al Instruct ion: TK 1 T PO QD [facility] gracia mcpherson chloride Not Available Not Available Not Available Vitals Date Recorded Body height Body mass index (BMI) Body weight Provider Name and Address Organization Details Last Updated DateTime 01/08/2025 172.72 cm 27.4 kg/m2 51135.63 g Abby Nagel [place] - [facility] 01/08/2025 11:00:09 Social History None recorded. Functional Status None recorded. Mental Status None recorded. Family History Nothing Reported. Medical History Condition Response Diabetes Y Arthritis Y Stroke Y Hypertension Y Past Encounters Encounter ID Performer Location Encounter Start Date Encounter Closed Date Diagnosis/Indication Diagnosis SNOMED-CT Code Diagnosis ICD10 Code Diagnosis Note [id number] TOMER DUNBAR MD [facility] [address] [address] 07/10/2024 09:41:31 07/10/2024 11:29:44 Bilateral disorder of Eustachian tubes 3956624545 138088 H69.83 [id number] ARDEN SILVA PA-C [facility] [address] [place] [address] 01/08/2025 10:53:21 01/08/2025 11:10:01 Bilateral disorder of Eustachian tubes 5113350577 876416 H69.83 Health Concerns Section Related Observation LastModified by Organization Detai ls LastModified Time None Recorded Concern Status LastModified by Organization Details LastModified Time None Recorded Advance Directives Directive None Recorded Payers Insurance Date Sequence Insurance Name Policy Number Policy Fajardo Covered Member ID Fajardo Member ID Guarantor Name 01/01/2025 1 [facility] - DOS ON OR AFTER 2022 - MEDICARE [place]ANTAGE [place]ARE RE[place]ACEMENT/ADV ANTAGE - PPO) Kailash Ndiaye [id number] Kailash Ndiaye 01/07/2025 1 [facility] - DOS ON OR AFTER 2022 - ONE CARE (MEDICARE REPLACEMENT/ADV ANTAGE - HMO) Kailash Ndiaye [id number] Kailash Ndiaye Notes Date Note Type Note [...] feeling much better. TOMER DUNBAR MD [address] [address], [place], [address], [facility] - [facility] 07/10/2024 11:30:57 01/08/2025 text/html 48-year-old male with [...] ears frequently. Hearing stable. TOMER DUNBAR MD [address] [place] [address], [phone], [facility] - [facility] 01/09/2025 16:38:34
--- OUTSIDE RECORDS SUMMARY | 2025-04-09 12:44 | XMS_ITS | Patient Health Record ---
Author Organization [facility] Address [address] [place] [address] Care Team Providers Care Tone Regulator Name Role Phone Peyman Dunn Primary Care Provider Keely Treviño Unavailable [phone] Allergies Allergen (clinical drug ingredient) Drug/Non Drug [...] Notes Problem Ulcer of right foot (disorder) (449601727) Ulcer of right foot with fat layer exposed (L97.512) Active confirmed Vital Signs Blood pressure diastolic 79 mm Hg 04/14/2024 Height 5ft 8in in 07/03/2024 Blood pressure systolic 129 mm Hg 04/14/2024 Weight 185 lbs 07/03/2024 BMI 28.13 kg/m2 07/03/2024 Encounters Encounter Location Date Provider Diagnosis [facility] [address] [address] 04/14/2024 Keely Perica Pain in right toe(s) M79.674 ; Open displaced fracture of distal phalanx of right great toe, initial encounter S92.421B ; Contusion of right great toe with damage to nail, initial encounter S90.211A and Ulcer of right foot with fat layer exposed L97.512 [facility] [address] 05/12/2024 Keely Perica Pain in right toe(s) M79.674 and Closed displaced fracture of distal phalanx of right great toe with routine healing S92.421D [facility] [address] [address] 07/03/2024 Keely Charles Closed displaced fracture of distal phalanx of right great toe with routine healing S92.421D [facility] [place] [address] [place] [address] 04/13/2024 Keely Charles Assessments Encounter Date Diagnosis [...] Insured Coverage Start Date Coverage End Date [facility] [employer] Claims [address] [place] [id number] [phone] [id number] Kailash Ndiaye Self - patient is the insured Medical (General) History Medical History History ICD Code Anxiety Broken bones Crohns disease Colitis Depression Hiatal hernia High blood pressure Poor circulation Chicken pox Transfusions PSC Surgical History Surgery Date(Month/Year) colon removed Ostemy reversal right heel surgery colonoscopy Hospitalization History Reason Date(Month/Year) ER C- Broken toe 04/03/24
--- OUTSIDE RECORDS SUMMARY | 2025-04-09 12:44 | XMS_ITS | Clinical Summary ---
Author Organization [employer] Address [address] [facility] [address] [place] [address] Care Team Providers Care Rice Drier Name Role Phone Unavailable Primary Care Provider [...] 07/11/2021 Tobacco Screening 05/22/2025 05/22/2024 Influenza Vaccine (#1) 2025 , 07/21/2022, 08/02/2019, Additional history exists Zoster Vaccines [...] Patient Date of Phone Billing Address Personal/Family [address] [place] [id number] [facility] MEDICAID STAND ADULT [facility]
--- OUTSIDE RECORDS SUMMARY | 2025-04-09 12:44 | XMS_ITS | Clinical Summary ---
Author Organization [facility], Address [address] [place] [address] [place] [address] Phone Care Team Providers Care Radiological Technician Name Role Phone Peyman Dunn MD Primary Care Provider Allergies Active Allergy Reactions Criticality Noted Date [...] Immunizations Immunization Administration Dates Next Due [facility] SARS-COV-2 07/11/2021 Family History Medical [...] of 2 - PCV) 1996 Influenza Vaccine (#1) 2025 Insurance [facility] [place] [id number] 1 [place] [id number] Care Teams Radiological Technician Relationship Specialty Start Date End Date Peyman Dunn MD [facility] DC [address] [place]OU[place] DEE PCP - General 08/01/19
[2025-04-09 12:59] LABS: Alanine Aminotransferase 124 U/L (0-40); Albumin Level 3.7 g/dL (3.5-5.0); Alkaline Phosphatase 310 U/L (39-117); Anion Gap 12 (12-20); Aspartate Amino Transferase 129 U/L (5-37); Blood Urea Nitrogen 9 mg/dL (9-16); Calcium 9.6 mg/dL (8.4-10.2); Carbon Dioxide 24 mmol/L (22-29); Chloride 107 mmol/L (96-108); Estimated Glomerular Filt Rate > 60; Potassium 3.2 mmol/L (3.3-5.1); Sodium 140 mmol/L (135-145); Total Protein 7.8 g/dL (6.5-8.0)
== END 2025-04-09 11:34 | disposition home or self-care (01) ==
LOC: HO.LAB 11:33
PROVIDERS: PCP Internal Medicine; Visit Provider Internal Medicine
DX: K83.01 Primary sclerosing cholangitis (principal); Z51.81 Encounter for therapeutic drug level monitoring
CPT/HCPCS: 36415; 80053; 85027; 85610; 86301

== ENCOUNTER 2025-04-13 10:41 | Outpatient (AMB) | payer OTHER, SELFPAY ==
--- OUTSIDE RECORDS SUMMARY | 2024-02-08 10:20 | XMS_ITS ---
Author Organization [facility] Address [address] [place] [address] Care Team Providers Care Changeover Operator Name Role Phone Peyman Dunn MD Primary Care Provider Arturo Nelson [phone] Nivia Hidalgo Unavailable Unavailable REASON FOR VISIT Patient presents today for ELEVATED LFT'S Encounters Encounter Location Date Provider Diagnosis [facility] [address] [place] [phone] 02/08/2024 Arturo Baxter Plan Of Treatment No Information Progress Notes * RODRICK BUTLEROB:1975 ( 49 yo M)Acc No.[id number]:02/08/2024 Progress Notes Patient: GIOVANNA RAINEY Provider: Russ Baxter MD :1975 A ge:48 Y S ex:Male Date:02/08/2024 Address:[address] [place] [address], [facility] Pcp:Peyman Dunn MD Subjective: * Chief Complaints: [...] Generated for Jo Ann ng/Faemileeg/eTransmitting on: 0 04/13/2025 11:12 AM EDT
[2025-04-13 10:48] VITALS: BP 104/60; PULSE 61; TEMP 36.3; O2SAT 99; BMI 25.9
--- NOTE | 2025-04-13 10:48 | A.OFFPC_ITS ---
Vital Signs 04/13/25 10:48 Height 5 ft 8 in Weight 170 lb 4 oz BMI 25.9 BP 104/60 Blood Pressure Location Lt brachial Position Sitting Pulse 61 Pulse Source Pulse Oximeter Temp 97.3 F Temp Source Temporal Artery Scan Pulse Oximetry (%) 99 Oxygen Delivery Method Room Air Intake Visit Reasons: PBC, UC Accompanied by: Sister Allergies azathioprine (From IMURAN) Allergy (Unknown, Verified 04/13/25 10:55) PANCREASE SWELLING infliximab (From REMICADE) Allergy (Unknown, Verified 04/13/25 10:55) DIFFICULTY BREATHING mannitol (Reclast) Allergy (Unknown, Verified 04/13/25 10:55) joint pain silver (From TEGADERM AG MESH) Allergy (Unknown, Verified 04/13/25 10:55) BLISTERS water for injection,sterile (Reclast) Allergy (Unknown, Verified 04/13/25 10:55) joint pain zoledronic acid (Reclast) Allergy (Unknown, Verified 04/13/25 10:55) joint pain Tobacco use date assessed: 04/13/25 Dental Screening Dental Screen Date: 04/13/25 Did you have a dental visit in the last 12 months?: Yes Did you have a dental problem in the last 6 months where you did not have access to dental care?: No Was dental information given to patient?: Patient has dentist HPI PBC, UC HPI Details fenofibrate stopped as jaundice got worse PFSH Medical History Elevated LFTs Hx of sigmoidoscopy DVT (deep venous thrombosis) Gastrointestinal fistula Small bowel perforation DVT (deep venous thrombosis) Irritable bowel syndrome 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 Mother Osteoporosis Heart problem HTN (hypertension) Maternal Aunt Breast cancer Social History Household Members: None Housing: House Are you a primary workforce investment act career manager to a significant other at home: No Do you presently have visiting nurse or other home services: Yes Alcohol intake: current Alcohol intake frequency: does not drink Patient Tobacco Use Status: Former Tobacco user Tobacco use type: Cigarette e-Cigarette/Vaping Use: Never Used Second Hand Smoke Exposure: No Substance Use Type: Marijuana service: No Current occupational status: disabled Cognitive needs: No Hearing needs: No Vision needs: Yes Questionnaire PHQ-9 Over the last 2 weeks, how often have you been bothered by any of the following problems? 1. Little interest or pleasure in doing things: not at all 2. Feeling down, depressed, or hopeless: not at all 3. Trouble falling or staying asleep, or sleeping too much: nearly every day 4. Feeling tired or having little energy: nearly every day 5. Poor appetite or overeating: nearly every day 6. Feeling bad about yourself - or that you are a failure or have let yourself or your family down: more than half the days 7. Trouble concentrating on things, such as reading the newspaper or watching television: more than half the days 8. Moving or speaking so slowly that other people could have noticed. Or the opposite - being so fidgety or restless that you have been moving around a lot more than usual: more than half the days 9. Thoughts that you would be better off or of hurting yourself in some way: not at all Total score: 15 Source: Developed by Drs. Arturo Guerrero, Aubrie Burciaga, Nickolas Alejo and colleagues, with an educational lacie from [employer]. Thrive Questionnaire Date Thrive assessed: 04/13/25 I am a: Patient What is your living situation today?: I have a place to live, but I am worried about losing it in the future Within the past 12 months, did the food you bought not last and you didn't have the money to get more?: Often true Within the past 12 months, did you worry whether your food would run out before you got money to buy more?: Never true Do you have trouble paying for medicines?: No Do you have trouble getting transportation to medical appointments?: Yes Do you have trouble paying your heating and electricity bill?: Yes Do you have trouble taking care of your child, family member or friend?: Yes Do you have trouble with day-to-day activities such as bathing, preparing meals, shopping, managing finances, etc.?: Yes Are you currently unemployed and looking for a job?: Yes Are you interested in more education?: No Currently or been in a relationship where the following occur: I choose not to answer THRIVE Score: 4 AUDIT C Alcohol Use Questionnaire (AUDIT-C) 1. How often do you have a drink containing alcohol?: Never 3. How often do you have six or more drinks on one occasion?: Never Total Score: 0 HO-7 AMB Questionnaire HO-7 Date HO - 7 assessed: 04/13/25 Feeling nervous, anxious, or on edge: 3 = Nearly every day Not being able to stop or control worryin = Nearly every day Worrying too much about different things: 3 = Nearly every day Trouble relaxin = Nearly every day Being so restless that it is hard to sit still: 1 = Several days Becoming easily annoyed or irritable: 3 = Nearly every day Feeling afraid as if something awful might happen: 2 = More than half the days Total HO-7 score (0-4 normal; 5-9 mild; 10-14 moderate; 15-21 severe): 18 Source: Developed by Drs. Arturo Guerrero, Aubrie Burciaga, Nickolas Alejo and colleagues, with an educational lacie from [employer]. Physical exam (Primary Care) Vital Signs: Last Vital Signs Temp 97.3 F 04/13/25 10:48 Pulse 61 04/13/25 10:48 BP 104/60 04/13/25 10:48 Pulse Ox 99 04/13/25 10:48 Oxygen Delivery Method Room Air 04/13/25 10:48 BMI result Body Mass Index 25.9 Tobacco/Smoking Status: Tobacco use Status Tobacco use date assessed 04/13/25 04/13/25 10:58 Patient Tobacco Use Status Former Tobacco user 04/13/25 10:58 Tobacco use type Cigarette 04/13/25 10:58 e-Cigarette/Vaping Use Never Used 04/13/25 10:58 PHQ-9: PHQ-9 Score PHQ-9: Total score 15 04/13/25 11:29 Thrive Assessment: Date of Thrive Assessment Date Thrive assessed 04/13/25 04/13/25 10:58 Currently or been in a relationship where the following occur: I choose not to answer Const General: alert; No acute distress Eyes Conjunctivae: conjunctivae normal Resp Auscultation: clear to auscultation bilaterally Cardio Rate: regular rate Rhythm: regular rhythm GI Inspection: Yes normal to inspection Extrem General: Yes normal to inspection and No edema Coding Level of Care Code Est Pt Level 4 (26839) Complex EM visit Add On G2211 Diagnoses 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 Digestive disease complication type: with fistula Ulcerative colitis location: ulcerative pancolitis Iron deficiency anemia D50.9 Insomnia G47.00 Hepatic steatosis K76.0 Gastroesophageal reflux disease without esophagitis K21.9 Esophagitis presence: without esophagitis History of deep vein thrombosis of lower extremity Z86.718 Primary hypertension I10 Hypertension type: primary hypertension Hypercholesterolemia E78.00 Moderate episode of recurrent major depressive disorder F33.1 Active/Remission status: currently active Major depression episode severity: moderate Hypokalemia E87.6 Assessment & Plan Assessment & Plan (1) Primary sclerosing cholangitis: Code(s): K83.01 - Primary sclerosing cholangitis Category: Medical Plan: Patient is being worked up in [facility] started on fenofibrate as well as ursodiol and continuing to monitor liver function test (2) Ulcerative colitis: Code(s): K51.90 - Ulcerative colitis, unspecified, without complications Category: Medical Qualifiers: Digestive disease complication type: with fistula Ulcerative colitis location: ulcerative pancolitis Qualified Code(s): K51.013 - Ulcerative (chr onic) pancolitis with fistula Plan: Continue to follow-up with Gastroenterology (3) Iron deficiency anemia: Code(s): D50.9 - Iron deficiency anemia, unspecified Category: Medical Plan: Blood work is improving on vitamin-C and iron (4) Insomnia: Code(s): G47.00 - Insomnia, unspecified Category: Medical Plan: Continue with an insomnia medication as needed (5) Hepatic steatosis: Code(s): K76.0 - Fatty (change of) liver, not elsewhere classified Category: Medical Plan: Low-fat diet exercise weight bearing (6) GERD (gastroesophageal reflux disease): Code(s): K21.9 - Gastro-esophageal reflux disease without esophagitis Category: Medical Qualifiers: Esophagitis presence: without esophagitis Qualified Code(s): K21.9 - Gastro-esophageal reflux disease without esophagitis Plan: Avoid the foods that causes that usually spicy foods, tomato products, juices, coffee, soda and foods that your sensitive to. After eating do not lie down, allow 3-4 hours before in lie down. And keep the head of bed above 30 degrees to avoid the acid from going up. (7) History of deep vein thrombosis of lower extremity: Comment: IVF filter Code(s): Z86.718 - Personal history of other venous thrombosis and embolism Category: Medical Plan: Continue with Eliquis 5 mg twice a day continue to monitor renal function (8) Hypertension: Code(s): I10 - Essential (primary) hypertension Category: Medical Qualifiers: Hypertension type: primary hypertension Qualified Code(s): I10 - Essential (primary) hypertension Plan: Continue with blood pressure medication. Decrease salt intake and exercise on propranolol 10 mg twice a day (9) Hypercholesterolemia: Code(s): E78.00 - Pure hypercholesterolemia, unspecified Category: Medical Plan: Avoid fried foods, chicken skin, eggs, butter margarine, pastries and meat. Be it pork or beef they have a lot of cholesterol takes atorvastatin July 2025 last blood work (10) Recurrent major depression: Comment: [facility] Code(s): F33.9 - Major depressive disorder, recurrent, unspecified Category: Medical Qualifiers: Active/Remission status: currently active Major depression episode severity: moderate Qualified Code(s): F33.1 - Major depressive disorder, recurrent, moderate Plan: Continue with counseling and therapy (11) Hypokalemia: Code(s): E87.6 - Hypokalemia Category: Medical Plan History of Present Illness The patient is a 49-year-old male presenting for a follow-up visit. The patient has a history of Deep Vein Thrombosis (DVT) and is currently on anticoagulation therapy with Eliquis 5 mg twice a day. 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 The patient has a history of hypertension managed with propranolol 30 mg twice a day. He also has Gastroesophageal Reflux Disease (GERD) for which he takes omeprazole. The patient has a history of iron deficiency anemia, with recent blood work showing mild anemia with hemoglobin at 13 g/dL and hematocrit at 39.8%. He is on vitamin C and iron supplementation. The patient has a history of ulcerative colitis, status post colectomy and ileal pouch-anal anastomosis in 2009. He has experienced multiple small bowel obstructions and enterocutaneous fistulas requiring surgical intervention in 2021. The patient has hepatic steatosis and primary sclerosing cholangitis, with a liver biopsy in 2023 showing patchy mild duct injury and cholestatic changes. He is on a trial of fenofibrate for primary sclerosing cholangitis and continues to monitor liver function tests. The patient has a history of depression and is currently on sertraline. The patient has been advised to maintain a low-fat diet and engage in regular exercise to manage fatty liver disease. 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 Health Maintenance - Colon cancer screening every 1 to 2 years - Continue vitamin supplementation for fat-soluble vitamin deficiency - Low-fat diet and regular exercise for fatty liver management Social History - Exercise: Engages in daily walking, advised to increase physical activity for liver health - Nutrition: Advised to maintain a low-fat diet and increase intake of potassium-rich foods Review of Systems - Respiratory: Denies dyspnea, lungs clear to auscultation - Gastrointestinal: Reports nausea, denies vomiting - Neurological: Denies dizziness or headaches Physical Exam - Respiratory: Lungs clear to auscultation bilaterally Results - Labs: Mild anemia with hemoglobin at 13 g/dL and hematocrit at 39.8% - Labs: Low potassium at 3.2 mmol/L - Labs: Liver function tests mildly elevated at 124 and 129 U/L - Imaging: Liver biopsy in 2023 showing patchy mild duct injury and cholestatic changes Plan The patient will continue on Eliquis 5 mg twice a day for anticoagulation management due to recurrent DVTs and the presence of an IVC filter. Propranolol 30 mg twice a day will be continued for hypertension management. For GERD, the patient will continue taking omeprazole. Iron deficiency anemia will be managed with continued vitamin C and iron supplementation. The patient will continue on a trial of fenofibrate for primary sclerosing cholangitis and will have regular liver function tests to monitor the condition. A low-fat diet and regular exercise are recommended to manage hepatic steatosis and prevent further liver damage. The patient will continue sertraline for depression management. Vitamin supplementation will be continued to address fat-soluble vitamin deficiency ass ociated with short bowel syndrome. Potassium supplementation will be initiated due to low potassium levels, with follow-up blood work to monitor electrolyte levels. Patient was informed and verbally consented to the use of an ambient scribe for clinic note documentation during this visit. Discussion Notes During the visit, we discussed the management of the patient's recurrent DVTs with continued anticoagulation therapy using Eliquis and the importance of regular monitoring of liver function tests due to primary sclerosing cholangitis. We also reviewed the need for a low-fat diet and regular exercise to manage hepatic steatosis and prevent further liver damage. The patient was advised to continue vitamin supplementation for fat-soluble vitamin deficiency and to monitor potassium levels due to recent low readings. Patient Instructions - Continue taking Eliquis 5 mg twice a day as prescribed. - Maintain a low-fat diet and engage in regular exercise. - Continue vitamin C and iron supplementation for anemia. - Monitor potassium levels and take prescribed potassium supplements. - Follow up with regular liver function tests as scheduled. Orders: Orders Comprehensive Met. Panel 1 Week Q78.9 - Osteochondrodysplasia, unspecified Medications: New potassium chloride ER (Klor-Con M) 20 mEq PO BID 10 tabs 2RF ondansetron 4 mg PO Q8H PRN 14 tabs 0RF nausea and vomiting Refilled ferrous sulfate (Feosol) 325 mg PO DAILY 90 tabs 3RF D50.9 - Iron deficiency anemia, unspecified
--- OUTSIDE RECORDS SUMMARY | 2025-04-13 11:12 | XMS_ITS | Patient Health Record ---
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 Name Role Phone Peyman Dunn Primary Care Provider Keely Treviño Unavailable [phone] Allergies Allergen (clinical drug ingredient) Drug/Non Drug [...] Notes Problem Ulcer of right foot (disorder) ([id number]) Ulcer of right foot with fat layer exposed (L97.512) Active confirmed Vital Signs Blood pressure diastolic 79 mm Hg 04/14/2024 Height 5ft 8in in 07/03/2024 Blood pressure systolic 129 mm Hg 04/14/2024 Weight 185 lbs 07/03/2024 BMI 28.13 kg/m2 07/03/2024 Encounters Encounter Location Date Provider Diagnosis [facility] [address] [address] 04/14/2024 Keely Perica Pain in right toe(s) M79.674 ; Open displaced fracture of distal phalanx of right great toe, initial encounter S92.421B ; Contusion of right great toe with damage to nail, initial encounter S90.211A and Ulcer of right foot with fat layer exposed L97.512 [facility] [address] 05/12/2024 Keely Perica Pain in right toe(s) M79.674 and Closed displaced fracture of distal phalanx of right great toe with routine healing S92.421D [facility] [address] [address] 07/03/2024 Keely Charles Closed displaced fracture of distal phalanx of right great toe with routine healing S92.421D [facility] [address] [place] [address] 04/13/2024 Keely Charles Assessments Encounter Date Diagnosis [...] Insured Coverage Start Date Coverage End Date [facility] [employer] Claims [address] [place] [id number] [phone] [id number] Kailash Ndiaye Self - patient is the insured Medical (General) History Medical History History ICD Code Anxiety Broken bones Crohns disease Colitis Depression Hiatal hernia High blood pressure Poor circulation Chicken pox Transfusions PSC Surgical History Surgery Date(Month/Year) colon removed Ostemy reversal right heel surgery colonoscopy Hospitalization History Reason Date(Month/Year) ER C- Broken toe 04/03/24
--- OUTSIDE RECORDS SUMMARY | 2025-04-13 11:12 | XMS_ITS | Data Portability ---
Author Organization [place] [facility], Allergy Address [address] [place] [address] Care Team Providers Care Chief Of Hospital Medicine Name Role Phone SHERI HILL Primary Care Provider [phone] Assessment Encounter Date Assessment Date Assessment LastModified by Organization Details LastModified Time 07/10/2024 07/10/2024 Right tympanic membrane is intact with aerated middle ear space. Left T-tube is in good position and patent. Patient currently pleased with his auditory performance and how his ears are feeling in general. We will continue with observation of this tube and have him follow-up with physician payroll and benefits assistant in 6 months. [email or web address] Not available 07/10/2024 11:30:21 01/08/2025 01/08/2025 49-year-old male with extensive history of ETD presents for reevaluation. On examination the right drum remains scarred but with well aerated middle ear space. No retraction or over insufflation. Left tube remains in place and patent. Continue observation and follow-up in 6 months. [email or web address] Not available 01/08/2025 11:36:41 Plan of Treatment [...] and Address Organization Details Recorded Time Otorrhea [id number] Completed 201304/28/2024 Otorrhea ; Note: Date Diagnose d: 4 3:36 PM (388.60) Not Available [facility] 4 02:20:10 Abnormal granulat ion tissue 22637780 Completed 201304/28/2024 Other abnormal granulat ion tissue; Note: Date Diagnose d: 4 3:36 PM (701.5) Not Available [facility] 4 02:19:39 Conducti ve hearing loss, bilatera l 955898361 Active 2014 Conducti ve HL, bilatera l; Note: Date Diagnose d: 5 9:19 AM (389.06) Not Available [facility] 4 02:19:31 Conducti ve hearing loss 36889113 Active 2015 Conducti ve hearing loss, unilater al, right ear, with unrestri cted hearing on the contrala teral side; Note: Date Diagnose d: 6 4:27 PM (H90.11) Not Available [facility] 4 02:20:11 Bilatera l disorder of Eustachi an tubes 64505713453 20697 Active 2015 Other specifie d disorder s of Eustachi an tube, bilatera l; Note: Date Diagnose d: 6 3:50 PM (H69.83) Not Available [facility] 4 02:19:34 Sensorin eural hearing loss 43273928 Active 2015 Sensorin eural hearing loss, unilater al, left ear, with unrestri cted hearing on the contrala teral side; Note: Date Diagnose d: 6 3:50 PM (H90.42) Not Available [facility] 4 02:19:20 Chronic serous otitis media of right ear 943492471 Active 2016 Chronic serous otitis media, right ear; Note: Changed from H65.01 to H65.21 (10/20/19 19 10:45 AM) , Date Diagnose d: 7 3:35 PM (H65.01) Not Available [facility] 4 02:19:22 Marginal perforat ion of tympanic membrane 77564565 Completed 201804/28/2024 Other marginal perforat ions of tympanic membrane , left ear; Note: Date Diagnose d: 9 3:56 PM (H72.2X2 ) Not Available [facility] 4 02:19:34 Mixed conducti ve and sensorin eural hearing loss, bilatera l 473566261 Active 2018 Mixed conducti ve and sensorin eural hearing loss, bilatera l; Note: Date Diagnose d: 9 10:40 AM (H90.6) Not Available [facility] 4 02:19:40 Impacted cerumen in right ear 43168962128 42352 Active 2018 Impacted cerumen, right ear; Note: Date Diagnose d: 07/12/20 19 1:19 PM (H61.21) Not Available [facility] 4 02:20:05 Abnormal auditory percepti on 22902852 Active 2019 Other abnormal auditory percepti ons, bilatera l; Note: Date Diagnose d: 0 1:35 PM (H93.293 ) Not Available [facility] 4 02:19:45 Acute myringit is of left ear 87795411789 21670 Active 2019 Acute myringit is, left ear; Note: Date Diagnose d: 0 9:33 AM (H73.002 ) Not Available [facility] 4 02:19:45 Chronic mucoid otitis media of left middle ear 45447189188 64128 Active 2019 Chronic mucoid otitis media, left ear; Note: Date Diagnose d: 0 9:04 AM (H65.32) Not Available [facility] 4 02:19:17 Chronic left myringit is 64230287539 55194 Completed 201904/28/2024 Chronic myringit is, left ear; Note: Date Diagnose d: 07/11/20 20 9:44 AM (H73.12) Not Available [facility] 4 02:20:02 Otorrhea of left ear 69444735544 62826 Active 2019 Otorrhea , left ear; Note: Date Diagnose d: 07/11/20 20 9:45 AM (H92.12) Not Available [facility] 4 02:20:06 Obstruct jeff sleep apnea syndrome 92225891 Active 2021 Obstruct jeff sleep apnea (adult) (pediatr ic); Note: Date Diagnose d: 2 2:19 PM (G47.33) Not Available [facility] 4 02:19:44 Mixed conducti ve and sensorin eural hearing loss of left ear 79192574023 107 Active 2021 Mixed conducti ve and [...] 2:22 PM (H90.A32 ) Not Available [facility] 4 02:19:34 Sensorin eural hearing loss in right ear 02891376701 100 Active 2021 Sensorin eural hearing loss, unilater al, right ear, with restrict ed hearing on the contrala teral side; Note: Date Diagnose d: 2 2:22 PM (H90.A21 ) Not Available [facility] 4 02:19:55 Problem Notes None recorded. Medical Equipment None [...] mg tablet 07/10 completed Medicati on ID: [id number] D uration Value: 30 Brand Name: warfarin [...] topical cream 07/11 completed Medicati on ID: [id number] D uration Value: 1 Brand Name: permethr [...] mg tablet 06/17 completed Medicati on ID: [id number] B rand Name: hydromor phone Se nd Method: E-Prescr ibed Sub s Allowed: subs OK Medic ationGen ericName : hydromor phone Not Available Not Available Not Available Lovenox 100 mg/mL subcutane ous syringe 06/17 completed Medicati on ID: [id number] B rand Name: Lovenox Send Method: E-Prescr ibed Sub s Allowed: subs OK Medic ationGen ericName : Lovenox Not Available Not Available Not Available ascorbic acid (vitamin C) 500 mg tablet TAKE 1 TABLET BY MOUTH ONCE DAILY active Not Available Not Available No t Available Cartia XT 120 mg capsule,e xtended release 06/17 completed Medicati on ID: [id number] D uration Value: 30 Brand Name: Cartia [...] mg tablet 07/11 completed Medicati on ID: [id number] D uration Value: 30 Brand Name: warfarin [...] mg tablet 07/11 completed Medicati on ID: [id number] D uration Value: 30 Brand Name: oxcarbaz [...] layed release 06/17 completed Medicati on ID: [id number] D uration Value: 30 Brand Name: bisacody l Send Method: E-Prescr ibed Sub s Allowed: subs OK Speci al Instruct ion: TK 1 T PO BID PRN Medi cationGe nericNam e: bisacody l Not Available Not Available Not Available mirtazapi ne 15 mg tablet 10/20 completed Medicati on ID: [id number] D uration Value: 30 Reason: () Brand Name: mirtazap ine Send Method: E-Prescr ibed Sub s Allowed: subs OK Speci al Instruct ion: TK 1 T PO QHS Medi cationGe nericNam e: mirtazap ine Not Available Not Available Not Available gabapenti n 100 mg capsule 07/10 completed Medicati on ID: [id number] B rand Name: gabapent in Send Method: E-Prescr ibed Sub s Allowed: subs OK Medic ationGen ericName : gabapent in Not Available Not Available Not Available propranol ol 20 mg tablet TAKE 1 AND 1/2 TABLETS BY MOUTH TWICE DAILY active Not Available Not Available No t Available topiramat e 100 mg tablet 10/20 completed Medicati on ID: [id number] D uration Value: 30 Reason: () Brand Name: topirama te Send Method: E-Prescr ibed Sub s Allowed: subs OK Speci al Instruct ion: TK 1 T PO BID Medi cationGe nericNam e: topirama te Not Available Not Available Not Available multivita min capsule active Medicati on ID: [id number] B rand Name: multivit green Sen d Method: E-Prescr ibed Sub s Allowed: subs OK Medic ationGen ericName : multivit green Not Available Not Available Not Available sertralin e 50 mg tablet 07/10 completed Medicati on ID: [id number] B rand Name: sertrali ne Send Method: E-Prescr ibed Sub s Allowed: subs OK Medic ationGen ericName : sertrali ne Not Available Not Available Not Available naproxen 500 mg tablet TAKE 1 TABLET BY MOUTH TWICE DAILY 01/08 completed Not Available Not Available Not Available Vitamin B-12 1,000 mcg tablet active Medicati on ID: [id number] B rand Name: Vitamin B-12 Sen d [...] drops,manan p 12/11 completed Medicati on ID: [id number] Pr escribed By Name: EMELIA Gipson nd Name: neomycin -polymyx in-HC Se nd Method: E-Prescr ibed Sub s Allowed: subs OK Speci al Instruct ion: 4 drops left ear BID X 14 days Med icationG enericNa me: neomycin -polymyx in-HC Not Available Not Available Not Available TobraDex 0.3 %-0.1 % eye drops,manan pension 07/10 completed Medicati on ID: [id number] D uration Value: 10 Prescri bed By Name: Saúl Hammond nd Name: TobraDex Send Method: E-Prescr ibed Sub s Allowed: subs OK Speci al Instruct ion: Instill 4 drops in the affected ear twice a day for 10 days Med [facility] enericNa me: TobraDex Not Available Not Available Not Available bupropion HCl SR 200 mg tablet,12 hr sustained -release 10/20 completed Medicati on ID: [id number] D uration Value: 30 Reason: () Brand [...] right ear 07/10 completed Medicati on ID: [id number] D uration Value: 7 Prescri bed By Name: Saúl Hammond nd Name: Ciprodex Send Method: E-Prescr ibed Sub s Allowed: subs MARTITA daley Instruct ion: x 1 week Med [facility] Ciprodex Not Available Not Available Not [...] aerosol inhaler 07/11 completed Medicati on ID: [id number] D uration Value: 16 Brand Name: ProAir [...] unit) tablet 07/10 completed Medicati on ID: [id number] B rand Name: cholecal ciferol (vitamin D3) Send Method: E-Prescr ibed Sub s Allowed: subs OK Medic ationGen ericName : cholecal ciferol (vitamin D3) Not Available Not Available Not Available Eliquis 5 mg tablet TAKE 1 TABLET BY MOUTH TWICE DAILY active Not Available Not Available No t Available potassium chloride ER 20 mEq tablet,ex tended release 07/11 completed Medicati on ID: [id number] D uration Value: 30 Brand Name: gracia mcpherson chloride Send Method: E-Prescr ibed Sub s Allowed: subs OK Speci al Instruct ion: TK 1 T PO QD [facility] gracia mcpherson chloride Not Available Not Available Not Available Vitals Date Recorded Body height Body mass index (BMI) Body weight Provider Name and Address Organization Details Last Updated DateTime 01/08/2025 172.72 cm 27.4 kg/m2 24810.63 g Abby Nagel [place] - [facility] 01/08/2025 11:00:09 Social History None recorded. Functional Status None recorded. Mental Status None recorded. Family History Nothing Reported. Medical History Condition Response Diabetes Y Arthritis Y Stroke Y Hypertension Y Past Encounters Encounter ID Performer Location Encounter Start Date Encounter Closed Date Diagnosis/Indication Diagnosis SNOMED-CT Code Diagnosis ICD10 Code Diagnosis Note [id number] TOMER DUNBAR MD [facility] [address] [address] 07/10/2024 09:41:31 07/10/2024 11:29:44 Bilateral disorder of Eustachian tubes [id number] 407519 H69.83 [id number] ARDEN SILVA PA-C [facility] [address] [place] [address] 01/08/2025 10:53:21 01/08/2025 11:10:01 Bilateral disorder of Eustachian tubes 3190387251 605662 H69.83 Health Concerns Section Related Observation LastModified by Organization Detai ls LastModified Time None Recorded Concern Status LastModified by Organization Details LastModified Time None Recorded Advance Directives Directive None Recorded Payers Insurance Date Sequence Insurance Name Policy Number Policy Fajardo Covered Member ID Fajardo Member ID Guarantor Name 01/01/2025 1 [facility] - DOS ON OR AFTER 2022 - MEDICARE [place]VANTAGE [place] (MEDICARE REPLACEMENT/ADV ANTAGE - PPO) Kailash Ndiaye [id number] Kailash Ndiaye 01/07/2025 1 [facility] - DOS ON OR AFTER 2022 - ONE CARE (MEDICARE REPLACEMENT/ADV ANTAGE - HMO) Kailash Ndiaye [id number] Kailash Ndiaye Notes Date Note Type Note [...] feeling much better. TOMER DUNBAR MD [address] [address], [place], [address], [facility] - [facility] 07/10/2024 11:30:57 01/08/2025 text/html 48-year-old male [...] ears frequently. Hearing stable. TOMER DUNBAR MD [address] [place] [address], [phone], [facility] - [facility] 01/09/2025 16:38:34
--- OUTSIDE RECORDS SUMMARY | 2025-04-13 11:12 | XMS_ITS | Clinical Summary ---
Author Organization [facility], Address [address] [place] [address] [place] [address] Phone Care Team Providers Care Cognos Developer Name Role Phone Peyman Dunn MD Primary Care Provider [phone] Allergies Active Allergy Reactions Criticality Noted Date [...] 11/23/2019 Immunizations Immunization Administration Dates Next Due [facility] SARS-COV-2 07/11/2021 Family History Medical History [...] PCV) 1996 Influenza Vaccine (#1) 2025 Insurance [facility] [place] [id number] 1 [place] [id number] Care Teams Cognos Developer Relationship Specialty Start Date End Date Peyman Dunn MD [facility] [place] [address] [place] PCP - General 08/01/19
== END 2025-04-13 11:47 | disposition home or self-care (01) ==
LOC: HO.HMCH 10:42
PROVIDERS: PCP Internal Medicine; Visit Provider Internal Medicine
DX: K83.01 Primary sclerosing cholangitis (principal); K51.013 Ulcerative (chronic) pancolitis with fistula; F33.1 Major depressive disorder, recurrent, moderate; D50.9 Iron deficiency anemia, unspecified; G47.00 Insomnia, unspecified; K76.0 Fatty (change of) liver, not elsewhere classified; K21.9 Gastro-esophageal reflux disease without esophagitis; Z86.718 Personal history of other venous thrombosis and embolism; I10 Essential (primary) hypertension; E78.00 Pure hypercholesterolemia, unspecified; E87.6 Hypokalemia

== ENCOUNTER → 2025-04-13 10:41 | Outpatient (BNVA) | payer OTHER, SELFPAY | PROVIDERS: PCP Internal Medicine; Visit Provider Internal Medicine | DX: K83.01 Primary sclerosing cholangitis (principal); K51.013 Ulcerative (chronic) pancolitis with fistula; D50.9 Iron deficiency anemia, unspecified; G47.00 Insomnia, unspecified; K76.0 Fatty (change of) liver, not elsewhere classified; K21.9 Gastro-esophageal reflux disease without esophagitis; I10 Essential (primary) hypertension; E78.00 Pure hypercholesterolemia, unspecified; F33.1 Major depressive disorder, recurrent, moderate; E87.6 Hypokalemia; Z86.718 Personal history of other venous thrombosis and embolism; Z79.01 Long term (current) use of anticoagulants; Z79.899 Other long term (current) drug therapy | CPT/HCPCS: 96127; 99212 ==

== ENCOUNTER → 2025-04-20 09:15 | Outpatient (BNV) | payer OTHER, SELFPAY | PROVIDERS: PCP Internal Medicine; Visit Provider Radiology Diagnostic Radiology | DX: K63.81 Dieulafoy lesion of intestine (principal); R16.1 Splenomegaly, not elsewhere classified; K63.89 Other specified diseases of intestine | CPT/HCPCS: 74181 ==

== ENCOUNTER 2025-04-20 09:39 | Outpatient (REF) | payer OTHER, SELFPAY ==
--- OUTSIDE RECORDS SUMMARY | 2024-02-08 10:20 | XMS_ITS ---
Author Organization [facility] Address [address] [place] [address] Care Team Providers Care Staffing Director Name Role Phone Peyman Dunn MD Primary Care Provider Arturo Nelson [phone] Nivia Hdialgo Unavailable Unavailable REASON FOR VISIT Patient presents today for ELEVATED LFT'S Encounters Encounter Location Date Provider Diagnosis [facility] [address] [place] [phone] 02/08/2024 Arturo Baxter Plan Of Treatment No Information Progress Notes * RODRICK BUTLEROB:1975 ( 49 yo M)Acc No.[id number]:02/08/2024 Progress Notes Patient: GIOVANNA RAINEY Provider: Russ Baxter MD :1975 A ge:48 Y S ex:Male Date:02/08/2024 Address:[address] [place] [address], [facility] Pcp:Peyman Dunn MD Subjective: * Chief Complaints: [...] MD Date: 02/08/2024 Generated for Jo Ann ceja/Fapeggy/eTransmitting on: 0 04/20/2025 09:54 AM EDT
--- NOTE | ~2025-04-20 | MR_ITS ---
CLINICAL HISTORY: JAUNDICE Exam: MRCP without IV contrast Comparison: None Findings: Suboptimal exam without contrast. Mildly irregular mural thickening of common bile duct, slightly hypointense and mildly heterogeneous on T2, more conspicuous proximally with focal nodular protrusion 4 mm into the lumen on series 5, image 17, mild dilatation of cystic duct, common bile duct is not dilated, no choledocholithiasis. Gallbladder is underdistended, there is small 3 mm hypointense signal in the dependent portion of gallbladder fundus, may reflect stone or polyp, no gallbladder wall thickening or acute inflammation. There is mild intrahepatic bile duct prominence, the hepatic ducts at the hilar region are difficult to see, mild ill-defined intermediate T2 hypointense signal noted in the hepatic hilar region near central left hepatic duct. Pancreatic duct is not dilated. Progressive lymphadenopathy in the karthik hepatis, aortocaval and gastrohepatic regions, near celiac artery aortocaval and left para-aortic region, among these lymph nodes, the inferior portacaval lymph node is mildly compressing on the pancreatic head and periampullary duodenum, 4.0 x 2.4 cm versus 3.1 x 1.7 cm previously. Liver is normal in size, no steatosis. No hepatic lesion is seen allowing for noncontrast technique. Spleen is not enlarged, 13 cm in craniocaudad dimension, 14.3 cm in width on axial plane. No focal splenic lesion. Pancreas, adrenal glands, kidneys are unremarkable. Unremarkable vasculature, IVC filter is present. Mildly dilated small bowel in the right abdomen infrahepatic region with likely ileocolic anastomosis in the vicinity, partially imaged and likely due to adynamic segment, no small bowel wall thickening, remaining small bowel, stomach are not dilated, susceptibility artifacts scattered in the anterior abdominal wall from prior surgery. No ascites. In the right retroperitoneum abutting psoas muscle, stable well-defined lesion likely complex fluid collection 4.1 x 1.6 x 3.5 cm, it has intermediate signal centrally with dark rim on T2, heterogeneously hyperintense on T1, most likely chronic hematoma. No acute osseous finding or suspicious lesion is seen. Impression: 1. Mildly irregular mural thickening of common bile duct may reflect cholangitis and likely chronic given mildly hypointense T2 signal, the 4 mm mural nodularity with intraluminal protrusion at the proximal CBD raises concern for neoplasm/malignancy, no CBD dilatation. Recommend small animal caretaker consultation and tissue sampling. 2. Prominent intrahepatic bile ducts, non-masslike ill-defined intermediate T2 signal at the hepatic hilar region near central left hepatic duct, stricture or neoplastic process at this region needs to be excluded. 3. Progressive lymphadenopathy in the right upper quadrant and retroperitoneum, concerning for metastasis. 4. Probable small gallstone or polyp, no acute inflammation. 5. New splenomegaly. 6. Stable right retroperitoneal chronic hematoma. This document has been electronically signed by: Marie Obrien MD on 04/24/2025 14:44:17
--- OUTSIDE RECORDS SUMMARY | 2025-04-20 09:54 | XMS_ITS | Clinical Summary ---
Author Organization [facility], Address [address] [place] [address] [place] [address] Phone Care Team Providers Care Shadowgraph Scale Operator Name Role Phone Peyman Dunn MD Primary Care Provider [phone] Allergies Active Allergy Reactions Criticality Noted Date [...] 11/23/2019 Immunizations Immunization Administration Dates Next Due [facility] SARS-COV-2 07/11/2021 Family History Medical History Relation [...] PCV) 1996 Influenza Vaccine (#1) 2025 Insurance [facility] [place] [id number] 1 [place] [id number] Care Teams Shadowgraph Scale Operator Relationship Specialty Start Date End Date Peyman Dunn MD [facility] [place] [address] [place] PCP - General 08/01/19
--- OUTSIDE RECORDS SUMMARY | 2025-04-20 09:54 | XMS_ITS | Clinical Summary ---
Author Organization [employer] Address [address] [place] [address] Care Team Providers Care Supervisor Lead Refinery Name Role Phone Unavailable Primary Care Provider [...] mg by mouth if needed at bedtime. 2 Active Social History Tobacco Use Types Packs/Day [...] X-Ray: Full Mouth 12/23/2020 12/22/2017 COVID-19 Vaccine (3 - 2023- season) 2024 03/05/2022, 07/11/2021 Tobacco [...] Patient Date of Phone Billing Address Personal/Family [address] [place] [id number] [facility] MEDICAID STAND ADULT [facility]
--- OUTSIDE RECORDS SUMMARY | 2025-04-20 09:54 | XMS_ITS | Encounter Summary ---
Author Organization [facility] Address [address] [place] [phone] Phone Care Team Providers Care Die Keeper Name Role Phone Peyman Dunn MD Primary Care Provider [phone] Encounter Details Date Type Department Care Team (Latest Contact Info) Description 04/06/2025 Orders Only [facility] [address] 5[address] [place] [address] Margie Multani RN [address] [place] [address] [email or web address] Abnormal LFTs (Primary Dx); PSC (primary sclerosing cholangitis) Social History Tobacco Use Types Packs/Day Years Used Date Smoking Tobacco: Former Cigarettes 1 5 0 09/27/1990 - 09/27/1995 Cigars Smokeless Tobacco: Never Alcohol Use Standard Drinks/Week Comments Not Currently 54 (1 standard drink = 0.6 oz pu re alcohol) Education Answer Date Recorded Are you interested in more education? Not on cindy e 04/06/2024 Are you concerned about learning? Not on file 04/06/2024 No 04/06/2024 No 04/06/2024 Digital Access Answer Date Recorded No 04/06/2024 No 04/06/2024 Reliable internet access at home? Not on file 04/06/2024 Device with a working camera? Not on file Sex and Gender Information Value Date Recorded Sex Assigned at Male 03/06/2024 2:42 PM EDT Legal Sex Male 6:28 PM EST Gender Identity Male 03/06/2024 2:42 PM EDT Sexual Orientation Straight 03/06/2024 2: 42 PM EDT documented as of this encounter Plan of Treatment Upcoming Encounters Date Type Department Care Team (Late st Contact Info) Description 04/27/2025 9:00 AM EDT Telemedicine [facility] [address] [place] [phone] Merari Ruiz MD [address] [place] [id number] [email or web address] 08/14/2025 9:00 AM EST Telemedicine [facility] [address] [place] [address] Merari Ruiz MD [address] [place] [phone] [email or web address] 08/20/2025 12:30 PM EST Office Visit [address] [address] Oscar Goyal MD, PhD [address] [place] [phone] [email or web address] Scheduled Orders Name Type Priority Associated Diagnoses Orde r Schedule Comprehensive metabolic panel Lab Routine Abnormal LFTs PSC (primary sclerosing cholangitis) Expected: 04/06/2025, Expires: 07/07/2025 PT-INR Lab Routine Abnormal LFTs PSC (primary sclerosing cholangitis) Expected: 04/06/2025, Expires: 04/06/2026 CBC and differential Lab Routine Abnormal LFTs PSC (primary sclerosing cholangitis) Expected: 04/06/2025, Expires: 04/06/2026 documented as of this encounter Visit Diagnoses Diagnosis Abnormal LFTs- Primary PSC (primary sclerosing cholangitis) documented in this encounter Care Teams Die Keeper Relationship Specialty Start Date End Date PoPeyman MD [address] [place] [address] PCP - General Internal Medicine 03/06/24 documented as of this encounter Additional Source Comments The information contained in this document represents components of the legal health record. It is not the complete legal health record.[facility]
--- OUTSIDE RECORDS SUMMARY | 2025-04-20 09:54 | XMS_ITS | Data Portability ---
Author Organization [place] - [facility], Allergy Address [address] [place] [address] Care Team Providers Care Asbestos Abatement Technician Name Role Phone SHERI HILL Primary Care Provider Assessment Encounter Date Assessment Date Assessment LastModified by Organization Details LastModified Time 07/10/2024 07/10/2024 Right tympanic membrane is intact with aerated middle ear space. Left T-tube is in good position and patent. Patient currently pleased with his auditory performance and how his ears are feeling in general. We will continue with observation of this tube and have him follow-up with physician early childhood assistant in 6 months. Not available 07/10/2024 11:30:21 01/08/2025 01/08/2025 49-year-old male with extensive history of ETD presents for reevaluation. On examination the right drum remains scarred but with well aerated middle ear space. No retraction or over insufflation. Left tube remains in place and patent. Continue observation and follow-up in 6 months. [email or web address] Not available 01/08/2025 11:36:41 Plan of Treatment [...] and Address Organization Details Recorded Time Otorrhea [id number] Completed 201304/28/2024 Otorrhea ; Note: Date Diagnose d: 4 3:36 PM (388.60) Not Available [facility] 4 02:20:10 Abnormal granulat ion tissue 84430592 Completed 201304/28/2024 Other abnormal granulat ion tissue; Note: Date Diagnose d: 4 3:36 PM (701.5) Not Available [facility] 4 02:19:39 Conducti ve hearing loss, bilatera l 058527576 Active 2014 Conducti ve HL, bilatera l; Note: Date Diagnose d: 5 9:19 AM (389.06) Not Available [facility] 4 02:19:31 Conducti ve hearing loss 64611312 Active 2015 Conducti ve hearing loss, unilater al, right ear, with unrestri cted hearing on the contrala teral side; Note: Date Diagnose d: 6 4:27 PM (H90.11) Not Available [facility] 4 02:20:11 Bilatera l disorder of Eustachi an tubes 15670790505 49683 Active 2015 Other specifie d disorder s of Eustachi an tube, bilatera l; Note: Date Diagnose d: 6 3:50 PM (H69.83) Not Available [facility] 4 02:19:34 Sensorin eural hearing loss 53043456 Active 2015 Sensorin eural hearing loss, unilater al, left ear, with unrestri cted hearing on the contrala teral side; Note: Date Diagnose d: 6 3:50 PM (H90.42) Not Available [facility] 4 02:19:20 Chronic serous otitis media of right ear 770440544 Active 2016 Chronic serous otitis media, right ear; Note: Changed from H65.01 to H65.21 (10/20/19 19 10:45 AM) , Date Diagnose d: 7 3:35 PM (H65.01) Not Available [facility] 4 02:19:22 Marginal perforat ion of tympanic membrane 05826656 Completed 201804/28/2024 Other marginal perforat ions of tympanic membrane , left ear; Note: Date Diagnose d: 9 3:56 PM (H72.2X2 ) Not Available [facility] 4 02:19:34 Mixed conducti ve and sensorin eural hearing loss, bilatera l 569630309 Active 2018 Mixed conducti ve and sensorin eural hearing loss, bilatera l; Note: Date Diagnose d: 9 10:40 AM (H90.6) Not Available [facility] 4 02:19:40 Impacted cerumen in right ear 95310430850 87540 Active 2018 Impacted cerumen, right ear; Note: Date Diagnose d: 07/12/20 19 1:19 PM (H61.21) Not Available [facility] 4 02:20:05 Abnormal auditory percepti on 43624410 Active 2019 Other abnormal auditory percepti ons, bilatera l; Note: Date Diagnose d: 0 1:35 PM (H93.293 ) Not Available [facility] 4 02:19:45 Acute myringit is of left ear 78104213412 62534 Active 2019 Acute myringit is, left ear; Note: Date Diagnose d: 0 9:33 AM (H73.002 ) Not Available [facility] 4 02:19:45 Chronic mucoid otitis media of left middle ear 10560567794 14045 Active 2019 Chronic mucoid otitis media, left ear; Note: Date Diagnose d: 0 9:04 AM (H65.32) Not Available [facility] 4 02:19:17 Chronic left myringit is 82181093581 60790 Completed 201904/28/2024 Chronic myringit is, left ear; Note: Date Diagnose d: 07/11/20 20 9:44 AM (H73.12) Not Available [facility] 4 02:20:02 Otorrhea of left ear 37123861125 35182 Active 2019 Otorrhea , left ear; Note: Date Diagnose d: 07/11/20 20 9:45 AM (H92.12) Not Available [facility] 4 02:20:06 Obstruct jeff sleep apnea syndrome 13309745 Active 2021 Obstruct jeff sleep apnea (adult) (pediatr ic); Note: Date Diagnose d: 2 2:19 PM (G47.33) Not Available [facility] 4 02:19:44 Mixed conducti ve and sensorin eural hearing loss of left ear 83294386562 107 Active 2021 Mixed conducti ve and [...] 2 2:22 PM (H90.A32 ) Not Available [facility] 4 02:19:34 Sensorin eural hearing loss in right ear 19906276376 100 Active 2021 Sensorin eural hearing loss, unilater al, right ear, with restrict ed hearing on the contrala teral side; Note: Date Diagnose d: 2 2:22 PM (H90.A21 ) Not Available [facility] 4 02:19:55 Problem Notes None recorded. Medical [...] mg tablet 07/10 completed Medicati on ID: [id number] D uration Value: 30 Brand Name: warfarin [...] topical cream 07/11 completed Medicati on ID: [id number] D uration Value: 1 Brand Name: permethr [...] mg tablet 06/17 completed Medicati on ID: [id number] B rand Name: hydromor phone Se nd Method: E-Prescr ibed Sub s Allowed: subs OK Medic ationGen ericName : hydromor phone Not Available Not Available Not Available Lovenox 100 mg/mL subcutane ous syringe 06/17 completed Medicati on ID: [id number] B rand Name: Lovenox Send Method: E-Prescr ibed Sub s Allowed: subs OK Medic ationGen ericName : Lovenox Not Available Not Available Not Available ascorbic acid (vitamin C) 500 mg tablet TAKE 1 TABLET BY MOUTH ONCE DAILY active Not Available Not Available No t Available Cartia XT 120 mg capsule,e xtended release 06/17 completed Medicati on ID: [id number] D uration Value: 30 Brand Name: Cartia [...] mg tablet 07/11 completed Medicati on ID: [id number] D uration Value: 30 Brand Name: warfarin [...] mg tablet 07/11 completed Medicati on ID: [id number] D uration Value: 30 Brand Name: oxcarbaz [...] layed release 06/17 completed Medicati on ID: [id number] D uration Value: 30 Brand Name: bisacody l Send Method: E-Prescr ibed Sub s Allowed: subs OK Speci al Instruct ion: TK 1 T PO BID PRN Medi cationGe nericNam e: bisacody l Not Available Not Available Not Available mirtazapi ne 15 mg tablet 10/20 completed Medicati on ID: [id number] D uration Value: 30 Reason: () Brand Name: mirtazap ine Send Method: E-Prescr ibed Sub s Allowed: subs OK Speci al Instruct ion: TK 1 T PO QHS Medi cationGe nericNam e: mirtazap ine Not Available Not Available Not Available gabapenti n 100 mg capsule 07/10 completed Medicati on ID: [id number] B rand Name: gabapent in Send Method: E-Prescr ibed Sub s Allowed: subs OK Medic ationGen ericName : gabapent in Not Available Not Available Not Available propranol ol 20 mg tablet TAKE 1 AND 1/2 TABLETS BY MOUTH TWICE DAILY active Not Available Not Available No t Available topiramat e 100 mg tablet 10/20 completed Medicati on ID: [id number] D uration Value: 30 Reason: () Brand Name: topirama te Send Method: E-Prescr ibed Sub s Allowed: subs OK Speci al Instruct ion: TK 1 T PO BID Medi cationGe nericNam e: topirama te Not Available Not Available Not Available multivita min capsule active Medicati on ID: [id number] B rand Name: multivit green Sen d Method: E-Prescr ibed Sub s Allowed: subs OK Medic ationGen ericName : multivit green Not Available Not Available Not Available sertralin e 50 mg tablet 07/10 completed Medicati on ID: [id number] B rand Name: sertrali ne Send Method: E-Prescr ibed Sub s Allowed: subs OK Medic ationGen ericName : sertrali ne Not Available Not Available Not Available naproxen 500 mg tablet TAKE 1 TABLET BY MOUTH TWICE DAILY 01/08 completed Not Available Not Available Not Available Vitamin B-12 1,000 mcg tablet active Medicati on ID: [id number] B rand Name: Vitamin B-12 Sen d [...] drops,manan p 12/11 completed Medicati on ID: [id number] Pr escribed By Name: EMELIA Gipson nd Name: neomycin -polymyx in-HC Se nd Method: E-Prescr ibed Sub s Allowed: subs OK Speci al Instruct ion: 4 drops left ear BID X 14 days Med icationG enericNa me: neomycin -polymyx in-HC Not Available Not Available Not Available TobraDex 0.3 %-0.1 % eye drops,manan pension 07/10 completed Medicati on ID: [id number] D uration Value: 10 Prescri bed By Name: Saúl Hammond nd Name: TobraDex Send Method: E-Prescr ibed Sub s Allowed: subs OK Speci al Instruct ion: Instill 4 drops in the affected ear twice a day for 10 days Med [facility] enericNa me: TobraDex Not Available Not Available Not Available bupropion HCl SR 200 mg tablet,12 hr sustained -release 10/20 completed Medicati on ID: [id number] D uration Value: 30 Reason: () Brand [...] right ear 07/10 completed Medicati on ID: [id number] D uration Value: 7 Prescri bed By Name: Saúl Hammond nd Name: Ciprodex Send Method: E-Prescr ibed Sub s Allowed: subs MARTITA daley Instruct ion: x 1 week Med [facility] C[facility] Not Available Not [...] aerosol inhaler 07/11 completed Medicati on ID: [id number] D uration Value: 16 Brand Name: ProAir [...] unit) tablet 07/10 completed Medicati on ID: [id number] B rand Name: cholecal ciferol (vitamin D3) Send Method: E-Prescr ibed Sub s Allowed: subs OK Medic ationGen ericName : cholecal ciferol (vitamin D3) Not Available Not Available Not Available Eliquis 5 mg tablet TAKE 1 TABLET BY MOUTH TWICE DAILY active Not Available Not Available No t Available potassium chloride ER 20 mEq tablet,ex tended release 07/11 completed Medicati on ID: [id number] D uration Value: 30 Brand Name: gracia mcpherson chloride Send Method: E-Prescr ibed Sub s Allowed: subs OK Speci al Instruct ion: TK 1 T PO QD [facility] : gracia mcpherson chloride Not Available Not Available Not Available Vitals Date Recorded Body height Body mass index (BMI) Body weight Provider Name and Address Organization Details Last Updated DateTime 01/08/2025 172.72 cm 27.4 kg/m2 65693.63 g Abby Nagel [place] - [facility] 01/08/2025 11:00:09 Social History None recorded. Functional Status None recorded. Mental Status None recorded. Family History Nothing Reported. Medical History Condition Response Diabetes Y Arthritis Y Stroke Y Hypertension Y Past Encounters Encounter ID Performer Location Encounter Start Date Encounter Closed Date Diagnosis/Indication Diagnosis SNOMED-CT Code Diagnosis ICD10 Code Diagnosis Note [id number] TOMER DUNBAR MD [facility] [address] [address] 07/10/2024 09:41:31 07/10/2024 11:29:44 Bilateral disorder of Eustachian tubes 9881440052 956407 H69.83 [id number] ARDEN SILVA PA-C [facility] [address] [place] [address] 01/08/2025 10:53:21 01/08/2025 11:10:01 Bilateral disorder of Eustachian tubes 6391689243 189867 H69.83 Health Concerns Section Related Observation LastModified by Organization Detai ls LastModified Time None Recorded Concern Status LastModified by Organization Details LastModified Time None Recorded Advance Directives Directive None Recorded Payers Insurance Date Sequence Insurance Name Policy Number Policy Fajardo Covered Member ID Fajardo Member ID Guarantor Name 01/01/2025 1 [facility] - DOS ON OR AFTER 2022 - MEDICARE [place]VANTAGE [place]ICARE REPLACEMENT/ADV ANTAGE - PPO) Kailash Ndiaye [id number] Kailash Ndiaye 01/07/2025 1 [facility] - DOS ON OR AFTER 2022 - ONE CARE (MEDICARE REPLACEMENT/ADV ANTAGE - HMO) Kailash Ndiaye [id number] Kailash Ndiaye Notes Date Note Type Note [...] feeling much better. TOMER DUNBAR MD [address] [address], [place], [address], [facility] - [facility] 07/10/2024 11:30:57 01/08/2025 text/html ROS as noted in the HPI 48-year-old male with longstanding history of eustachian [...] ears frequently. Hearing stable. TOMER DUNBAR MD [address] [place] [address], [phone], [facility] - [facility] 01/09/2025 16:38:34
--- OUTSIDE RECORDS SUMMARY | 2025-04-20 09:54 | XMS_ITS | Patient Health Record ---
Author Organization [facility] Address [address] [place] [address] Care Team Providers Care Tennis Coach Name Role Phone Peyman Dunn Primary Care Provider Keely Treviño Unavailable [phone] Allergies Allergen (clinical drug ingredient) Drug/Non Drug [...] Notes Problem Ulcer of right foot (disorder) (179751666) Ulcer of right foot with fat layer exposed (L97.512) Active confirmed Vital Signs Height 5ft 8in in 07/03/2024 Weight 185 lbs 07/03/2024 BMI 28.13 kg/m2 07/03/2024 Encounters Encounter Location Date Provider Diagnosis [facility] [address] [place] [address] 05/12/2024 Keely Charles Pain in right toe(s) M79.674 and Closed displaced fracture of distal phalanx of right great toe with routine healing S92.421D [facility] [address] [address] 07/03/2024 Keely Charles Closed displaced fracture of [...] Insured Coverage Start Date Coverage End Date [facility] SCO Claims [address] [place] [address] [phone] [id number] Kailash Ndiaye Self - patient is the insured Medical (General) History Medical History History ICD Code Anxiety Broken bones Crohns disease Colitis Depression Hiatal hernia High blood pressure Poor circulation Chicken pox Transfusions PSC Surgical History Surgery Date(Month/Year) colon removed Ostemy reversal right heel surgery colonoscopy Hospitalization History Reason Date(Month/Year) ER [facility] Bro[place] 04/03/24
== END 2025-04-20 09:40 | disposition home or self-care (01) ==
LOC: HO.MRI 09:39
PROVIDERS: PCP Internal Medicine; Visit Provider Internal Medicine
DX: R17 Unspecified jaundice (principal)
CPT/HCPCS: 74181

== ENCOUNTER 2025-04-26 12:32 | Outpatient (REF) | payer OTHER, SELFPAY ==
--- OUTSIDE RECORDS SUMMARY | 2024-02-08 10:20 | XMS_ITS ---
Author Organization [facility] Address [address] [place] [phone] Care Team Providers Care Shear Assembler Name Role Phone Peyman Dunn MD Primary Care Provider Arturo Nelson [phone] Nivia Hidalgo Unavailable Unavailable REASON FOR VISIT Patient presents today for ELEVATED LFT'S Encounters Encounter Location Date Provider Diagnosis [facility] [address] [place] [phone] 02/08/2024 Arturo Baxter Plan Of Treatment No Information Progress Notes * RODRICK BUTLEROB:1975 ( 49 yo M)Acc No.[id number]:02/08/2024 Progress Notes Patient: GIOVANNA RAINEY Provider: Russ Baxter MD :1975 A ge:48 Y S ex:Male Date:02/08/2024 Address:[address] [place] [address], [facility] Pcp:Peyman Dunn MD Subjective: * Chief Complaints: [...] Pending * Provider: Russ Baxter MD Date: 02/08/2024 Generated for Jo Ann ng/Faemileeg/eTransmitting on: 0 04/26/2025 12:49 PM EDT
--- OUTSIDE RECORDS SUMMARY | 2025-04-26 12:49 | XMS_ITS | Patient Health Record ---
Author Organization [facility] Address [address] [place] [address] Care Team Providers Care Network Cabler Name Role Phone Peyman Dunn Primary Care Provider Keely Treviño Unavailable [phone] Allergies Allergen (clinical drug ingredient) Drug/Non Drug [...] Notes Problem Ulcer of right foot (disorder) (985236303) Ulcer of right foot with fat layer exposed (L97.512) Active confirmed Vital Signs Height 5ft 8in in 07/03/2024 Weight 185 lbs 07/03/2024 BMI 28.13 kg/m2 07/03/2024 Encounters Encounter Location Date Provider Diagnosis [facility] [address] [place] [address] 05/12/2024 Keely Charles Pain in right toe(s) M79.674 and Closed displaced fracture of distal phalanx of right great toe with routine healing S92.421D [facility] [address] [address] 07/03/2024 Keely Charles Closed displaced fracture of [...] Insured Coverage Start Date Coverage End Date [facility] SCO Claims [address] [place] [id number] [phone] [id number] Kailash Ndiaye Self - patient is the insured Medical (General) History Medical History History ICD Code Anxiety Broken bones Crohns disease Colitis Depression Hiatal hernia High blood pressure Poor circulation Chicken pox Transfusions PSC Surgical History Surgery Date(Month/Year) colon removed Ostemy reversal right heel surgery colonoscopy Hospitalization History Reason Date(Month/Year) ER [facility]- Broken toe 04/03/24
--- OUTSIDE RECORDS SUMMARY | 2025-04-26 12:49 | XMS_ITS | Encounter Summary ---
Author Organization [facility] Address [address] [place] [address] Phone Care Team Providers Care Dental Technician Metal Name Role Phone Peyman Dunn MD Primary Care Provider Encounter Details Date Type Department Care Team (Latest Contact Info) Description 04/06/2025 Orders Only [facility] [address] 5th [place] [address] Margie Multani RN [address] [place] [address] [email or web address] Abnormal LFTs (Primary Dx); PSC (primary [...] Info) Description 04/27/2025 9:00 AM EDT Telemedicine [facility] [address] [place] [address] Merari Ruiz MD [address] [place] [phone] [email or web address] 08/14/2025 9:00 AM EST Telemedicine [facility] [address] [place] [address] Merari Ruiz MD [address] [place] [id number] [email or web address] 08/20/2025 12:30 PM EST Office Visit [address] [address] Oscar Goyal MD, PhD [address] [place] [id number] [email or web address] Scheduled Orders Name Type Priority Associated Diagnoses [...] cholangitis) documented in this encounter Care Teams Dental Technician Metal Relationship Specialty Start Date End Date PoPeyman MD [address] [place] [address] PCP - General Internal Medicine 03/06/24 documented as of this encounter Additional Source Comments The information contained in this document represents components of the legal health record. It is not the complete legal health record.[facility]
--- OUTSIDE RECORDS SUMMARY | 2025-04-26 12:49 | XMS_ITS | Clinical Summary ---
Author Organization [employer] Address [address] [facility] 7[address] [place] [address] Care Team Providers Care Laboratory Operations Coordinator Name Role Phone Unavailable Primary Care Provider [...] Patient Date of Phone Billing Address Personal/Family [address] [place] [id number] [facility] STAND [facility]
--- OUTSIDE RECORDS SUMMARY | 2025-04-26 12:49 | XMS_ITS | Clinical Summary ---
Author Organization [facility], Address [address] [place] [address] [place] [address] Phone Care Team Providers Care Quarry Plug And Feather Driller Name Role Phone Peyman Dunn MD Primary Care Provider [phone] Allergies Active Allergy Reactions Criticality Noted Date [...] Immunizations Immunization Administration Dates Next Due [facility] SARS-COV-2 07/11/2021 Family History Medical History Relation [...] PCV) 1996 Influenza Vaccine (#1) 2025 Insurance [facility] [place] [id number] 1 [place] [id number] Care Teams Quarry Plug And Feather Driller Relationship Specialty Start Date End Date Peyman Dunn MD [facility] [place] [address] [place] PCP - General 08/01/19
[2025-04-26 12:58] LABS: MANUAL DIFF FLAG NO
[2025-04-26 13:32] LABS: Hematocrit 38.2 % (42.0-52.0); Hemoglobin 12.7 g/dl (14.0-18.0); Imm Gran Abs Auto 0.04 X10*3/uL (0.00-0.03); Imm Gran Pct Auto 0.5 % (0.0-0.4); Lymphocytes Absolute Auto 1.5 X10*3/uL (1.2-4.9); Mean Corpuscular HGB Conc 33.2 g/dl (31.0-36.0); Mean Corpuscular Hemoglobin 32.2 pg (27.0-33.0); Mean Corpuscular Volume 97.0 fL (80.0-98.0); NRBC Abs Auto 0.000 X10*3/uL (0.0-0.012); NRBC Pct Auto 0.0 /100WBC (0.0-0.2); Platelet Count 175 X10*3/uL (160-400); Red Blood Count 3.94 X10*6/uL (4.60-5.80); White Blood Count 7.4 X10*3/uL (4.8-10.8)
[2025-04-26 13:40] LABS: INTERNATIONAL NORM RATIO 1.1 (0.9-1.1); Prothrombin Time 12.8 SEC (10.9-12.4)
[2025-04-26 14:03] LABS: Alanine Aminotransferase 137 U/L (0-40); Albumin Level 3.7 g/dL (3.5-5.0); Alkaline Phosphatase 329 U/L (39-117); Anion Gap 12 (12-20); Aspartate Amino Transferase 158 U/L (5-37); Blood Urea Nitrogen 11 mg/dL (9-16); Calcium 9.2 mg/dL (8.4-10.2); Carbon Dioxide 24 mmol/L (22-29); Chloride 107 mmol/L (96-108); Estimated Glomerular Filt Rate > 60; Potassium 3.7 mmol/L (3.3-5.1); Sodium 139 mmol/L (135-145); Total Protein 7.6 g/dL (6.5-8.0)
== END 2025-04-26 12:33 | disposition home or self-care (01) ==
LOC: HO.LAB 12:32
PROVIDERS: Absent Provider Internal Medicine; PCP Internal Medicine; Visit Provider Internal Medicine
DX: K83.01 Primary sclerosing cholangitis (principal); R79.89 Other specified abnormal findings of blood chemistry
CPT/HCPCS: 36415; 80053; 85025; 85610

== ENCOUNTER 2025-05-03 11:54 | Outpatient (REF) | payer OTHER, SELFPAY ==
--- OUTSIDE RECORDS SUMMARY | 2024-02-08 10:20 | XMS_ITS ---
Author Organization [facility] Address [address] [place] [address] Care Team Providers Care Bee Robber Name Role Phone Peyman Dunn MD Primary Care Provider Arturo Nelson [phone] Nivia Hidalgo Unavailable Unavailable REASON FOR VISIT Patient presents today for ELEVATED LFT'S Encounters Encounter Location Date Provider Diagnosis [facility] [address] [place] [phone] 02/08/2024 Arturo Baxter Plan Of Treatment No Information Progress Notes * RODRICK BUTLEROB:1975 ( 49 yo M)Acc No.[id number]:02/08/2024 Progress Notes Patient: GIOVANNA RAINEY Provider: Russ Baxter MD :1975 A ge:48 Y S ex:Male Date:02/08/2024 Address:[address] [place] [address], [facility] Pcp:Peyman Dunn MD Subjective: * Chief Complaints: [...] Generated for Jo Ann ceja/Subhash/eTransmitting on: 0 05/03/2025 08:10 AM EDT
--- OUTSIDE RECORDS SUMMARY | 2025-05-03 12:26 | XMS_ITS | Clinical Summary ---
Author Organization [employer] Address [address] [facility] 7t [place] [address] Care Team Providers Care Fishery Biologist Name Role Phone Unavailable Primary Care Provider [...] Patient Date of Phone Billing Address Personal/Family [address] [place] [address] [facility] STAND ADULT [facility]
--- OUTSIDE RECORDS SUMMARY | 2025-05-03 12:26 | XMS_ITS | Patient Health Record ---
Author Organization [facility] Address [address] [place] [address] Care Team Providers Care Call Center Analyst Name Role Phone Peyman Dunn Primary Care Provider Keely Treviño Unavailable [phone] Allergies Allergen (clinical drug ingredient) Drug/Non Drug [...] Notes Problem Ulcer of right foot (disorder) (892167480) Ulcer of right foot with fat layer exposed (L97.512) Active confirmed Vital Signs Height 5ft 8in in 07/03/2024 Weight 185 lbs 07/03/2024 BMI 28.13 kg/m2 07/03/2024 Encounters Encounter Location Date Provider Diagnosis [facility] [address] [place] [address] 05/12/2024 Keely Charles Pain in right toe(s) M79.674 and Closed displaced fracture of distal phalanx of right great toe with routine healing S92.421D [facility] [address] [address] 07/03/2024 Keely Charles Closed displaced fracture of [...] Insured Coverage Start Date Coverage End Date [facility] SCO Claims [address] [place] [address] [phone] [id number] Kailash Ndiaye Self - patient is the insured Medical (General) History Medical History History ICD Code Anxiety Broken bones Crohns disease Colitis Depression Hiatal hernia High blood pressure Poor circulation Chicken pox Transfusions PSC Surgical History Surgery Date(Month/Year) colon removed Ostemy reversal right heel surgery colonoscopy Hospitalization History Reason Date(Month/Year) ER [facility] Broken [place] 04/03/24
--- OUTSIDE RECORDS SUMMARY | 2025-05-03 12:26 | XMS_ITS | Encounter Summary ---
Author Organization [facility] Address [address] [place] [address] Phone Care Team Providers Care Professor Of Early Childhood Education Name Role Phone Peyman Dunn MD Primary Care Provider [phone] Encounter Details Date Type Department Care Team (Latest Contact Info) Description 04/06/2025 Orders Only [facility] [address] [facility], 5th [place] [address] Margie Multani RN [address] [place] [address] [email or web address] Abnormal LFTs (Primary Dx); PSC (primary sclerosing [...] Care Team (Late st Contact Info) Description 08/14/2025 9:00 AM EST Telemedicine [facility] [address] [place] [address] 5th [place] [address] Merari Ruiz MD [address] [place] [address] [email or web address] 08/20/2025 12:30 PM EST Office Visit [facility] [address] [address] Oscar Goyal MD, PhD [address] [place] [address] [email or web address] Scheduled Orders Name Type Priority [...] cholangitis) documented in this encounter Care Teams Professor Of Early Childhood Education Relationship Specialty Start Date End Date Po, Peyman Giles MD [address] [place] [phone] PCP - General Internal Medicine 03/06/24 documented as of this encounter Additional Source Comments The information contained in this document represents components of the legal health record. It is not the complete legal health record.[facility]
--- OUTSIDE RECORDS SUMMARY | 2025-05-03 12:26 | XMS_ITS | Clinical Summary ---
Author Organization [facility], Address [address] [place] [address] [place] [address] Phone Care Team Providers Care Arts And Crafts Instructor Name Role Phone Peyman Dunn MD Primary Care Provider [phone] Allergies Active Allergy Reactions Criticality Noted Date [...] 11/23/2019 Immunizations Immunization Administration Dates Next Due [facility] SARS-COV-2 07/11/2021 Family History Medical [...] Influenza Vaccine (#1) 2025 Insurance [facility] PRETTYRICKEY [id number] 1 [place] [id number] Care Teams Arts And Crafts Instructor Relationship Specialty Start Date End Date Peyman Dunn MD [facility] [place] [address] MASOUD DEE PCP - General 08/01/19
[2025-05-03 13:08] LABS: Alanine Aminotransferase 115 U/L (0-40); Albumin Level 3.7 g/dL (3.5-5.0); Alkaline Phosphatase 325 U/L (39-117); Aspartate Amino Transferase 114 U/L (5-37); Total Protein 7.6 g/dL (6.5-8.0)
== END 2025-05-03 11:55 | disposition home or self-care (01) ==
LOC: HO.LAB 11:54
PROVIDERS: PCP Internal Medicine; Visit Provider Internal Medicine
DX: K83.01 Primary sclerosing cholangitis (principal)
CPT/HCPCS: 36415; 80076

== ENCOUNTER 2025-05-09 10:43 | Outpatient (REF) | payer OTHER, SELFPAY ==
--- OUTSIDE RECORDS SUMMARY | 2024-02-08 10:20 | XMS_ITS ---
Author Organization [facility] Address [address] [place] [address] Care Team Providers Care Brood Hatchery Manager Name Role Phone Peyman Dunn MD Primary Care Provider Arturo Nelson [phone] Nivia Hidalgo Unavailable Unavailable REASON FOR VISIT Patient presents today for ELEVATED LFT'S Encounters Encounter Location Date Provider Diagnosis [facility] [address] [place] [phone] 02/08/2024 Arturo Baxter Plan Of Treatment No Information Progress Notes * RODRICK BUTLEROB:1975 ( 49 yo M)Acc No.[id number]:02/08/2024 Progress Notes Patient: GIOVANNA RAINEY Provider: Russ Baxter MD :1975 A ge:48 Y S ex:Male Date:02/08/2024 Address:[address] [place] [address], [facility] Pcp:Peyman Dunn MD Subjective: * Chief Complaints: [...] Date: 0 02/08/2024 Generated for Jo Ann ceja/Faemileeg/eTransmitting on: 0 05/09/2025 11:36 AM EDT
[2025-05-09 11:33] LABS: Hematocrit 40.0 % (42.0-52.0); Hemoglobin 13.1 g/dl (14.0-18.0); Mean Corpuscular HGB Conc 32.8 g/dl (31.0-36.0); Mean Corpuscular Hemoglobin 32.0 pg (27.0-33.0); Mean Corpuscular Volume 97.8 fL (80.0-98.0); NRBC Abs Auto 0.000 X10*3/uL (0.0-0.012); NRBC Pct Auto 0.0 /100WBC (0.0-0.2); Platelet Count 178 X10*3/uL (160-400); Red Blood Count 4.09 X10*6/uL (4.60-5.80); White Blood Count 7.8 X10*3/uL (4.8-10.8)
--- OUTSIDE RECORDS SUMMARY | 2025-05-09 11:36 | XMS_ITS | Patient Health Record ---
[facility] Address [address] [place] [address] Care Team Providers Care Primary School Principal Name Role Phone Peyman Dunn Primary Care Provider Keely Treviño Unavailable [phone] Allergies Allergen (clinical drug ingredient) Drug/Non Drug [...] Notes Problem Ulcer of right foot (disorder) (788551333) Ulcer of right foot with fat layer exposed (L97.512) Active confirmed Vital Signs Height 5ft 8in in 07/03/2024 Weight 185 lbs 07/03/2024 BMI 28.13 kg/m2 07/03/2024 Encounters Encounter Location Date Provider Diagnosis [facility] [address] [place] [address] 05/12/2024 Keely Charles Pain in right toe(s) M79.674 and Closed displaced fracture of distal phalanx of right great toe with routine healing S92.421D [facility] [address] [address] 07/03/2024 Keely Charles Closed displaced fracture of [...] Coverage Start Date Coverage End Date [facility] SCO Claims [address] [place] [id number] [phone] [id number] Kailash Ndiaye Self - patient is the insured Medical (General) History Medical History History ICD Code Anxiety Broken bones Crohns disease Colitis Depression Hiatal hernia High blood pressure Poor circulation Chicken pox Transfusions PSC Surgical History Surgery Date(Month/Year) colon removed Ostemy reversal right heel surgery colonoscopy Hospitalization History Reason Date(Month/Year) ER [facility] [place] [place] 04/03/24
--- OUTSIDE RECORDS SUMMARY | 2025-05-09 11:36 | XMS_ITS | Clinical Summary ---
Author Organization [facility], Address [address] [place] [address] [place] [address] Phone Care Team Providers Care Machine Designer Name Role Phone Peyman Dunn MD Primary Care Provider [phone] Allergies Active Allergy Reactions Criticality Noted Date [...] 11/23/2019 Immunizations Immunization Administration Dates Next Due [facility] SARS-COV-2 07/11/2021 Family History Medical History Relation [...] PCV) 1996 Influenza Vaccine (#1) 2025 Insurance [facility] PRETTYRICKEY [id number] 1 [place] [id number] Care Teams Machine Designer Relationship Specialty Start Date End Date Peyman Dunn MD [facility] [place] [address] MASOUD DEE PCP - General 08/01/19
--- OUTSIDE RECORDS SUMMARY | 2025-05-09 11:36 | XMS_ITS | Clinical Summary ---
Author Organization [employer] Address [address] [facility] 7t [place] [address] Care Team Providers Care Rail Switchman Name Role Phone Unavailable Primary Care Provider [...] Patient Date of Phone Billing Address Personal/Family [address] [place] [address] [facility] STAND ADULT [facility]
--- OUTSIDE RECORDS SUMMARY | 2025-05-09 11:36 | XMS_ITS ---
Author Organization [facility] Address [address] [place] [address] Phone Care Team Providers Care Saxophone Assembler Name Role Phone Peyman Dunn MD Primary Care Provider [phone] Transplant Episode Liver Candidate [facility] ([place], [place]) - [facility] Referred on 04/27/2025 Marked as Active on 04/27/2025 Liver CoordinatorIsiah Joyce MD Phone: N/A Fax: N/A Email: N/A Scores Score Value Updated Expires Exceptions/Niesha sons CPRA Not available UNOS MELD Not available MELD (Calc) 19 04/26/2025 Care Team Name Role Phone Fax Email Unknown MD Isiah Liver Coordinator N/A N/A N/A Faustino Dozier MD Referring Physician [phone] [email or web address] Merari Ruiz MD Referring Physician [phone] [email or web address] Events Pre-Transplant Referred: 04/27/2025 Appointments (04/08/2025 - 06/09/2025) When With Visit Type Description 04/27/2025 Gastro - Giles Ruiz VIRTUAL ESTABLISHED Ca nceled (Personal Reasons) 05/10/2025 PreAdmission Pre-Procedure Ph one Appointment 05/30/2025 Social ServLuz Maria Forman Non Amrit lable Patient Care 05/30/2025 Transplant Lab 05/30/2025 Transplant - Rock Roe Liver Surgic al Evaluation 05/30/2025 Transplant - Avtar Hyman EVALUATION HEPATOL LIVER 05/30/2025 Transplant - Dyana Kimbrough PRE-TX EDUCATION
[2025-05-09 11:37] LABS: INTERNATIONAL NORM RATIO 1.1 (0.9-1.1); Prothrombin Time 12.8 SEC (10.9-12.4)
[2025-05-09 12:34] LABS: Alanine Aminotransferase 136 U/L (0-40); Albumin Level 3.7 g/dL (3.5-5.0); Alkaline Phosphatase 317 U/L (39-117); Anion Gap 13 (12-20); Aspartate Amino Transferase 144 U/L (5-37); Blood Urea Nitrogen 10 mg/dL (9-16); Calcium 9.3 mg/dL (8.4-10.2); Carbon Dioxide 22 mmol/L (22-29); Chloride 108 mmol/L (96-108); Estimated Glomerular Filt Rate > 60; Potassium 3.3 mmol/L (3.3-5.1); Sodium 140 mmol/L (135-145); Total Protein 7.7 g/dL (6.5-8.0)
== END 2025-05-09 10:44 | disposition home or self-care (01) ==
LOC: HO.LAB 10:43
PROVIDERS: PCP Internal Medicine; Visit Provider Internal Medicine
DX: K83.01 Primary sclerosing cholangitis (principal); Q78.9 Osteochondrodysplasia, unspecified
CPT/HCPCS: 36415; 80053; 82248; 85027; 85610

== ENCOUNTER 2025-05-10 09:42 | Outpatient (AMB) | payer OTHER, SELFPAY ==
--- OUTSIDE RECORDS SUMMARY | 2024-02-08 10:20 | XMS_ITS ---
Author Organization [facility] Address [address] [place] [address] Care Team Providers Care Reservoir Caretaker Name Role Phone Peyman Dunn MD Primary Care Provider Arturo Nelson [phone] Nivia Hidalgo Unavailable Unavailable REASON FOR VISIT Patient presents today for ELEVATED LFT'S Encounters Encounter Location Date Provider Diagnosis [facility] [address] [place] [phone] 02/08/2024 Arturo Baxter Plan Of Treatment No Information Progress Notes * RODRICK BUTLEROB:1975 ( 49 yo M)Acc No.[id number]:02/08/2024 Progress Notes Patient: GIOVANNA RAINEY Provider: Russ Baxter MD :1975 A ge:48 Y S ex:Male Date:02/08/2024 Address:[address] [place] [address], [facility] Pcp:Peyman Dunn MD Subjective: * Chief Complaints: [...] 02/08/2024 Generated for Jo Ann ceja/Faemileeg/eTransmitting on: 05/10/2025 10:25 AM EDT
--- NOTE | 2025-05-10 10:21 | A.OFFVIS_ITS ---
Vital Signs 05/10/25 10:21 05/10/25 10:33 Height 5 ft 8 in BP 98/65 Position Sitting Pulse 61 Intake Visit Reasons: 6 Months / tremors Accompanied by: Sister Allergies azathioprine (From IMURAN) Allergy (Unknown, Verified 05/10/25 10:23) PANCREASE SWELLING infliximab (From REMICADE) Allergy (Unknown, Verified 05/10/25 10:23) DIFFICULTY BREATHING mannitol (Reclast) Allergy (Unknown, Verified 05/10/25 10:23) joint pain silver (From TEGADERM AG MESH) Allergy (Unknown, Verified 05/10/25 10:23) BLISTERS water for injection,sterile (Reclast) Allergy (Unknown, Verified 05/10/25 10:23) joint pain zoledronic acid (Reclast) Allergy (Unknown, Verified 05/10/25 10:23) joint pain Medication List - Last Reconciled 05/10/25 by Mariah Roman, AUBREY acetaminophen (Tylenol Extra Strength) 500 mg PO Q6H PRN amoxicillin 500 mg PO BID apixaban (Eliquis) 5 mg PO BID 90 days ascorbic acid (vitamin C) 500 mg PO DAILY atorvastatin 20 mg PO BEDTIME calcium citrate 250 mg PO DAILY carboxymethylcellulose sodium 0.5% (Lubricant Eye Drops) 1 drp ophthalmic (eye) BID PRN cholecalciferol (vitamin D3) 50 mcg PO DAILY 90 days ciclopirox 0.77% 0.77 appl topical BID cyanocobalamin (vitamin B-12) 1,000 mcg PO DAILY 90 days ferrous sulfate (Feosol) 325 mg PO DAILY folic acid 1 mg PO DAILY ketorolac 0.5% 0.5 drps ophthalmic (eye) DAILY omeprazole 20 mg PO DAILY 90 days ondansetron 4 mg PO Q8H PRN potassium chloride ER (Klor-Con M) 20 mEq PO BID propranolol 20 mg PO BID 90 days propranolol 10 mg PO BID 90 days sertraline 100 mg PO DAILY 90 days sodium phosphates 19-7 gram/118 mL (Fleet Enema) Take one enema the night before the procedure, and the second enema 1h before coming for the procedure tizanidine 4 mg PO BID PRN 90 days ursodiol orally 2 times a day; 1 tab in morning and 2 tabs in evening zolpidem ER (Ambien CR) 12.5 mg PO BEDTIME PRN HPI Comments Details: 49-year-old man with a coagulapathy causing DVT and treated with Warfarin, ulcerative colitis, h/o pancreatitis from Imuran use, s/p colectomy, s/p colostomy and later reversal, tachycardia, and tremor. He was having more tremors in hands over the last few months. His sister noted tremors have been bad. It was worse with certain activities, like when trying to unlock door with syed. Handwriting was not as neat. No difficulty eating or drinking. He was taking propranolol 30mg twice a day, no medication side effects. He was under a lot of stress recently. He needed liver transplant and had appointments at [facility]. He was working with therapist. [facility] Medical History Elevated LFTs Hx of sigmoidoscopy DVT (deep venous thrombosis) Gastrointestinal fistula Small bowel perforation DVT (deep venous thrombosis) Irritable bowel syndrome 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 Mother Osteoporosis Heart problem HTN (hypertension) Maternal Aunt Breast cancer Social History Household Members: None Housing: House Are you a primary childcare administrator to a significant other at home: No Do you presently have visiting nurse or other home services: Yes Alcohol intake: current Alcohol intake frequency: does not drink Patient Tobacco Use Status: Former Tobacco user Tobacco use type: Cigarette e-Cigarette/Vaping Use: Never Used Second Hand Smoke Exposure: No Substance Use Type: Marijuana service: No Current occupational status: disabled Cognitive needs: No Hearing needs: No Vision needs: Yes Review of Systems Const Denies chills, Denies daytime sleepiness, Reports difficulty sleeping, Denies fatigue, Denies fever(s), Denies frequent falls, Denies headache(s), Denies increased appetite, Denies poor appetite, Denies snoring, Denies weakness, Denies weight gain and Denies weight loss Eyes Denies loss of vision ENT Denies vertigo, Denies dizziness and Denies headache(s) Card Denies chest pain at rest, Denies chest pain with activity, Denies syncope, Denies leg edema and Denies palpitations Resp Denies snoring GI Denies constipation, Denies heartburn, Denies diarrhea and Denies nausea Denies urinary frequency, Denies urinary incontinence and Denies urinary urgency Musc Denies abnormal gait, Denies numbness and Denies tingling Skin/Breast Denies dry skin and Denies rash Neuro Denies abnormal gait, Denies vertigo, Denies dizziness, Denies syncope, Denies frequent falls, Denies headache(s), Denies lack of coordination, Denies loss of vision, Denies memory loss, Denies numbness, Denies restless legs, Denies seizure-like activity, Denies tingling, Denies paresthesias, Reports tremor(s) and Denies weakness Psych Denies anxiety, Denies depression, Denies auditory hallucinations, Denies memory loss, Denies visual hallucinations and Denies suicidal ideation Endo Denies fatigue and Denies palpitations Physical Exam Vital Signs: Last Vital Signs Pulse 61 05/10/25 10:33 BP 98/65 05/10/25 10:33 Const Other: General Appearance:? normal, in no acute distress. Skin:? no rashes, no significant birthmarks. Heart:? S1, S2 normal, no murmurs. Lungs:? clear anteriorly and posteriorly. Extremities:? no edema. Psych:? alert, oriented, cognitive function intact, cooperative with exam. Neuro Other: Mental Status:?Normal attention, orientation, memory and affect.? Cranial Nerves:?Pupils are equal, round and reactive to light. External occular muscles are intact. Visual simeon are full. Face is symmetrical. Facial sensations are normal. Tongue is midline. Palate elevates symmetrically. Shoulder shrugging is normal. Hearing to bedside conversation is normal. Sensory Exam:?....? Coordination:?No ataxia,?no titubation.? Gait Exam: Within normal limits. Cerebellar Signs:?Wnhpfz-ct-yzfm is okay. Extrapyramidal System:?No tremor, rigidity with normal facial expressions.? Pronator Drift:?Not present.? Involuntary Movements:?fine tremors of the outstretched hands L > R? Speech:?Normal.? Assessment & Plan Assessment & Plan (1) Essential tremor: Code(s): G25.0 - Essential tremor Category: Medical Plan: Increase propranolol 20mg 2 tablets twice a day, use/side effects reviewed. Medications: Changed From propranolol 20 mg PO BID 90 days 180 tabs 1RF G25.0 - Essential tremor To propranolol 40 mg (2 x 20 mg) PO BID 360 tabs 0RF 90 days G25.0 - Essential tremor Discontinued propranolol Discontinued Reason: Doctor's Order 10 mg PO BID 90 days 180 tabs 1RF Coding Level of Care Code Est Pt Level 4 (75734) Diagnoses Essential tremor G25.0
--- OUTSIDE RECORDS SUMMARY | 2025-05-10 10:25 | XMS_ITS ---
Author Organization [facility] Address [address] [place] [address] Phone Care Team Providers Care Instrument Assembler Name Role Phone Peyman Dunn MD Primary Care Provider [phone] Transplant Episode Liver Candidate [facility] ([place], [place]) - [facility] Referred on 04/27/2025 Marked as Active on 04/27/2025 Liver CoordinatorIsiah Joyce MD Phone: N/A Fax: N/A Email: N/A Scores Score Value Updated Expires Exceptions/Niesha sons CPRA Not available UNOS MELD Not available MELD (Calc) 19 04/26/2025 Care Team Name Role Phone Fax Email Unknown MD Isiah Liver Coordinator N/A N/A N/A Faustino Dozier MD Referring Physician [phone] [email or web address] Merari Ruiz MD Referring Physician [phone] [email or web address] [email or web address] [place]. [facility] Events Pre-Transplant Referred: 04/27/2025 Appointments (04/09/2025 - 06/10/2025) When With Visit Type Description 04/27/2025 Gastro [...]
--- OUTSIDE RECORDS SUMMARY | 2025-05-10 10:25 | XMS_ITS | Clinical Summary ---
Author Organization [employer] Address [address] [facility] 7t [place] [address] Care Team Providers Care Picture Painter Name Role Phone Unavailable Primary Care Provider [...] Patient Date of Phone Billing Address Personal/Family [address] [place] [address] [facility] MEDICAID STAND ADULT [facility]
--- OUTSIDE RECORDS SUMMARY | 2025-05-10 10:25 | XMS_ITS | Clinical Summary ---
Author Organization [facility], Address [address] [place] [address] [place] [address] Phone Care Team Providers Care Mud Trucker Name Role Phone Peyman Dunn MD Primary Care Provider [phone] Allergies Active Allergy Reactions Criticality Noted Date [...] day Active Cholecalciferol (Vitamin D3) 50 MCG (1999) tablet Take by mouth Active dicyclomine (BENTYL) [...] 11/23/2019 Immunizations Immunization Administration Dates Next Due [facility] SARS-COV-2 07/11/2021 Family History Medical [...] Influenza Vaccine (#1) 2025 Insurance [facility] PRETTYRICKEY [id number] 1 [place]OU[place] DEE [id number] Care Teams Mud Trucker Relationship Specialty Start Date End Date Peyman Dunn MD [facility] [place] [address] [place]OU[place] DEE PCP - General 08/01/19
--- OUTSIDE RECORDS SUMMARY | 2025-05-10 10:25 | XMS_ITS | Patient Health Record ---
Author Organization [facility] Address [address] [place] [address] Care Team Providers Care Teacher Emotionally Impaired Name Role Phone Peyman Dunn Primary Care Provider Keely Treviño Unavailable [phone] Allergies Allergen (clinical drug ingredient) Drug/Non Drug [...] Notes Problem Ulcer of right foot (disorder) (782137076) Ulcer of right foot with fat layer exposed (L97.512) Active confirmed Vital Signs Height 5ft 8in in 07/03/2024 Weight 185 lbs 07/03/2024 BMI 28.13 kg/m2 07/03/2024 Encounters Encounter Location Date Provider Diagnosis [facility] [place] [address] [place] [address] 05/12/2024 Keely Charles Pain in right toe(s) M79.674 and Closed displaced fracture of distal phalanx of right great toe with routine healing S92.421D [facility] [address] [address] 07/03/2024 Keely Charles Closed displaced fracture of [...] Insured Coverage Start Date Coverage End Date [facility] SCO Claims [address] [place] [id number] [phone] [id number] Kailash Ndiaye Self - patient is the [...]
[2025-05-10 10:33] VITALS: BP 98/65; PULSE 61
== END 2025-05-10 10:38 | disposition home or self-care (01) ==
LOC: HO.HSM 09:43
PROVIDERS: PCP Internal Medicine; Referring Provider Internal Medicine; Visit Provider Registered Nurse
DX: G25.0 Essential tremor (principal)
CPT/HCPCS: 99214

== ENCOUNTER → 2025-05-10 09:42 | Outpatient (BNVA) | payer OTHER, SELFPAY | PROVIDERS: PCP Internal Medicine; Referring Provider Internal Medicine; Visit Provider Registered Nurse | DX: G25.0 Essential tremor (principal) | CPT/HCPCS: 99212 ==

== ENCOUNTER 2025-05-14 08:58 | Outpatient (REF) | payer OTHER, SELFPAY ==
--- OUTSIDE RECORDS SUMMARY | 2024-02-08 10:20 | XMS_ITS ---
Author Organization [facility] Address [address] [place] [phone] Care Team Providers Care Agricultural Equipment Mechanic Name Role Phone Peyman Dunn MD Primary Care Provider Arturo Nelson [phone] Nivia Hidalgo Unavailable Unavailable REASON FOR VISIT Patient presents today for ELEVATED LFT'S Encounters Encounter Location Date Provider Diagnosis [facility] [address] [place] [phone] 02/08/2024 Arturo Baxter Plan Of Treatment No Information Progress Notes * RODRICK BUTLEROB:1975 ( 49 yo M)Acc No.[id number]:02/08/2024 Progress Notes Patient: GIOVANNA RAINEY Provider: Russ Baxter MD :1975 A ge:48 Y S ex:Male Date:02/08/2024 Address:[address] [place] [address], [facility] Pcp:Peyman Dunn MD Subjective: * Chief Complaints: [...] MD Date: 02/08/2024 Generated for Jo Ann ceja/Faemieleg/eTransmitting on: 0 05/14/2025 09:34 AM EDT
[2025-05-14 09:14] LABS: MANUAL DIFF FLAG NO
--- OUTSIDE RECORDS SUMMARY | 2025-05-14 09:34 | XMS_ITS | Clinical Summary ---
Author Organization [facility], Address [address] [place] [address] [place] [address] Phone Care Team Providers Care Copper Plate Printer Name Role Phone Peyman Dunn MD Primary Care Provider [phone] Allergies Active Allergy Reactions Criticality Noted Date [...] 11/23/2019 Immunizations Immunization Administration Dates Next Due [facility] SARS-COV-2 07/11/2021 Family History Medical History Relation [...] Influenza Vaccine (#1) 2025 Insurance [facility] PRETTYRICKEY [id number] 1 [place] DEE [id number] Care Teams Copper Plate Printer Relationship Specialty Start Date End Date Peyman Dunn MD [facility] [place]NAL [place] [address] MASOUD DEE PCP - General 08/01/19
--- OUTSIDE RECORDS SUMMARY | 2025-05-14 09:34 | XMS_ITS | Encounter Summary ---
Author Organization [facility] Address [address] [place] [address] Phone Care Team Providers Care Motion Study Analyst Name Role Phone Peyman Dunn MD Primary Care Provider [phone] Encounter Details Date Type Department Care Team (Late st Contact Info) Description 04/05/2025 Telephone [facility] [address] [facility], 5th [place] [address] Margie Multani RN [address] [place] [address] [email or web address] Social History Tobacco Use Types Packs/Day Years [...] Upcoming Encounters Date Type Department Care Team (Latest Contact Info) Description 5 Procedure Pass [facility] MOE 4 ENDO DEPT [address] [facility], 4th [place] [address] 5 10:00 AM EDT Hospital Encounter [facility] MOE 4 ENDO DEPT [address] [facility], [address]th [place] [address] Geovani Sun MD 75 [facility] [address] [place] [address] [email or web address] 5 10:00 AM EDT Anesthesia Event [facility] MOE [address] END[address] [place] [address], [address] [place] [address] Jen Feliciano MD [facility] [address] [place] [address] [email or web address] Sharon James RN [address] [place] [phone] [email or web address] 5 10:00 AM EDT - 5 11:00 AM EDT Surgery [facility] MOE 4 ENDO DEPT [address] [place] [address], [address] [place] [address] Geovani Sun MD [address] [address] [email or web address] ENDOSCOPIC RETROGRADE CHOLANGIOPANCREATOGRAPHY 5 10:30 AM EDT Nurse Only [facility] Transplant Clinic [address] [place] [address] Merari Ruiz MD [address] [place] [address] Mina [email or web address] Mya Kimbrough, VIDAL [address] [place] [address] [email or web address] 12:00 PM EDT Blood Draw [facility] Trans[facility] [address] [place] [address] Merari Ruiz MD [address] [place] [address] Mina [email or web address] 1:00 PM EDT Office Visit [facility] [address] [place] [address] David Hyman MD [address] [place] [address] [email or web address] 1:30 PM EDT Office Visit [facility] [address] [place] [address] Veronica Roe MD [address] [place] [address] [email or web address] 2:00 PM EDT Social Work [facility] Social Service Department [address] [place] [address] Merari Ruiz MD [address] [place] [address] Mina [email or web address] Gabi Jiménez, BUILDING DISMANTLER [address] [place] [phone] [email or web address] 5 11:30 AM EDT Telemedicine - audio only [facility] [address] [place] [address] Merari Ruiz MD [address] [place] [address] Mina [email or web address] Deb Samayoa [address] [place] [address] [email or web address] 5 12:00 PM EDT Nutrition [facility] Trans[facility] [address] [place] [address] Merari Ruiz MD [address] [place] [address] Mina [email or web address] Marilou Macias, BONNIEN [address] [place] [phone] [email or web address] 5 9:00 AM EST Telemedicine [facility] [address] [place] [address] Merari Ruiz MD [address] [place] [address] Mina [email or web address] 5 12:30 PM EST Office Visit [facility] [address] [address] Oscar Goyal MD, PhD [address] [place] [address] [email or web address] Scheduled Procedures Name Priority Associated Diagnoses Date/Ti id ENDOSCOPIC RETROGRADE CHOLANGIOPANCREATOGRAPHY PSC (primary sclerosing cholangitis) 05/15/2025 10:00 AM EDT documented as of this encounter Visit Diagnoses Not on filedocumented in this encounter Care Teams Motion Study Analyst Relationship Specialty Start Date End Date Peyman Dunn MD [address] [place] [address] [address] [place] [phone] PCP - General Internal Medicine 03/06/24 documented as of this encounter Additional Source Comments The information contained in this document represents components of the legal health record. It is not the complete legal health record.[facility]
--- OUTSIDE RECORDS SUMMARY | 2025-05-14 09:34 | XMS_ITS | Patient Health Record ---
[facility] Address [address] [place] [address] Care Team Providers Care Beam Machine Operator Name Role Phone Peyman Dunn Primary Care Provider Keely Treviño Unavailable [phone] Allergies Allergen (clinical drug ingredient) Drug/Non Drug [...] Notes Problem Ulcer of right foot (disorder) (402842011) Ulcer of right foot with fat layer exposed (L97.512) Active confirmed Vital Signs Height 5ft 8in in 07/03/2024 Weight 185 lbs 07/03/2024 BMI 28.13 kg/m2 07/03/2024 Encounters Encounter Location Date Provider Diagnosis [facility] [address] [address] 07/03/2024 Keely Charles Closed displaced fracture of [...] Insured Coverage Start Date Coverage End Date [facility] SCO Claims [address] [place] [id number] [phone] [id number] Kailash Ndiaye Self - patient is the insured Medical (General) History Medical History History ICD Code Anxiety Broken bones Crohns disease Colitis Depression Hiatal hernia High blood pressure Poor circulation Chicken pox Transfusions PSC Surgical History Surgery Date(Month/Year) colon removed Ostemy reversal right heel surgery colonoscopy Hospitalization History Reason Date(Month/Year) [place] [facility] [place]
[2025-05-14 10:11] LABS: Hematocrit 42.7 % (42.0-52.0); Hemoglobin 13.8 g/dl (14.0-18.0); Imm Gran Abs Auto 0.04 X10*3/uL (0.00-0.03); Imm Gran Pct Auto 0.5 % (0.0-0.4); Lymphocytes Absolute Auto 1.9 X10*3/uL (1.2-4.9); Mean Corpuscular HGB Conc 32.3 g/dl (31.0-36.0); Mean Corpuscular Hemoglobin 32.1 pg (27.0-33.0); Mean Corpuscular Volume 99.3 fL (80.0-98.0); NRBC Abs Auto 0.000 X10*3/uL (0.0-0.012); NRBC Pct Auto 0.0 /100WBC (0.0-0.2); Platelet Count 194 X10*3/uL (160-400); Red Blood Count 4.30 X10*6/uL (4.60-5.80); White Blood Count 7.3 X10*3/uL (4.8-10.8)
[2025-05-14 10:22] LABS: INTERNATIONAL NORM RATIO 1.0 (0.9-1.1); Prothrombin Time 11.5 SEC (10.9-12.4)
[2025-05-14 11:14] LABS: Alanine Aminotransferase 146 U/L (0-40); Albumin Level 3.7 g/dL (3.5-5.0); Alkaline Phosphatase 341 U/L (39-117); Anion Gap 14 (12-20); Aspartate Amino Transferase 148 U/L (5-37); Blood Urea Nitrogen 10 mg/dL (9-16); Calcium 9.6 mg/dL (8.4-10.2); Carbon Dioxide 29 mmol/L (22-29); Chloride 103 mmol/L (96-108); Estimated Glomerular Filt Rate > 60; Potassium 4.0 mmol/L (3.3-5.1); Sodium 142 mmol/L (135-145); Total Protein 8.0 g/dL (6.5-8.0)
== END 2025-05-14 08:59 | disposition home or self-care (01) ==
LOC: HO.LAB 08:58
PROVIDERS: PCP Internal Medicine; Visit Provider Internal Medicine
DX: K83.01 Primary sclerosing cholangitis (principal); R79.89 Other specified abnormal findings of blood chemistry
CPT/HCPCS: 36415; 80053; 85025; 85610

== ENCOUNTER 2025-05-23 15:42 | Outpatient (REF) | payer OTHER, SELFPAY ==
--- OUTSIDE RECORDS SUMMARY | 2024-02-08 10:20 | XMS_ITS ---
Author Organization [facility] Address [address] [place] [phone] Care Team Providers Care Stenotype Machine Operator Name Role Phone Peyman Dunn MD Primary Care Provider Arturo Nelson [phone] Nivia Hidalgo Unavailable Unavailable REASON FOR VISIT Patient presents today for ELEVATED LFT'S Encounters Encounter Location Date Provider Diagnosis [facility] [address] [place] [phone] 02/08/2024 Arturo Baxter Plan Of Treatment No Information Progress Notes * RODRICK BUTLEROB:1975 ( 49 yo M)Acc No.[id number]:02/08/2024 Progress Notes Patient: GIOVANNA RAINEY Provider: Russ Baxter MD :1975 A ge:48 Y S ex:Male Date:02/08/2024 Address:[address] [place] [address], [facility] Pcp:Peyman Dunn MD Subjective: * Chief Complaints: [...] MD Date: 02/08/2024 Generated for Jo Ann ceja/Faemileeg/eTransmitting on: 0 05/23/2025 04:56 PM EDT
--- OUTSIDE RECORDS SUMMARY | 2025-05-23 16:55 | XMS_ITS | Patient Health Record ---
[facility] Organization [facility] Address [address] [place] [address] Care Team Providers Care Record Filing Clerk Name Role Phone Peyman Dunn Primary Care Provider Keely Treviño Unavailable [phone] Allergies Allergen (clinical drug ingredient) Drug/Non Drug [...] Notes Problem Ulcer of right foot (disorder) (823453704) Ulcer of right foot with fat layer exposed (L97.512) Active confirmed Vital Signs Height 5ft 8in in 07/03/2024 Weight 185 lbs 07/03/2024 BMI 28.13 kg/m2 07/03/2024 Encounters Encounter Location Date Provider Diagnosis [facility] [address] [address] 07/03/2024 Keely Charles Closed displaced fracture of [...] Insured Coverage Start Date Coverage End Date [facility] SCO Claims [address] [place] [id number] [phone] [id number] Kailash Ndiaye Self - patient is the insured Medical (General) History Medical History History ICD Code Anxiety Broken bones Crohns disease Colitis Depression Hiatal hernia High blood pressure Poor circulation Chicken pox Transfusions PSC Surgical History Surgery Date(Month/Year) colon removed Ostemy reversal right heel surgery colonoscopy Hospitalization History Reason Date(Month/Year) ER [facility] [place] Bro[place] 04/03/24
--- OUTSIDE RECORDS SUMMARY | 2025-05-23 16:55 | XMS_ITS ---
Author Organization [facility] Address [address] [place] [id number] Phone Care Team Providers Care Business Services Intern Name Role Phone Peyman Dunn MD Primary Care Provider [phone] Transplant Episode Liver Candidate [facility] ([place], [place]) - [facility] Referred on 04/27/2025 Marked as Active on 04/27/2025 Liver CoordinatorIsiah Joyce MD Phone: N/A Fax: N/A Email: N/A Care Team Name Role Phone Fax Email Unknown MD Isiah Liver Coordinator N/A N/A N/A Faustino Dozier MD Referring Physician [phone] [email or web address] Merari Ruiz MD Referring Physician [phone] [email or web address] Pre-Transplant Referred: 04/27/2025 Appointments (04/22/2025 - 06/23/2025) When With Visit Type Description 04/27/2025 Gastro - Giles Ruiz VIRTUAL ESTABLISHED Ca nceled (Personal Reasons) 05/10/2025 PreAdmission Pre-Procedure Ph one Appointment 05/15/2025 Radiology - Manny Sun [place] ENDOS COPIC RETROGRADE BILIARY AND PANCREATIC (ERCP) PSC (primary sclerosing cholangitis) 05/30/2025 Social Servi - Luz Maria Jiménez Non Amrit lable Patient Care 05/30/2025 Transplant Lab 05/30/2025 Transplant - Rock Roe Liver Surgic al Evaluation 05/30/2025 Transplant - Avtar Hyman EVALUATION HEPATOL L IVER Canceled (Institution - Appt Made in Error) 05/30/2025 Transplant - Dyana Kimbrough PRE-TX EDUCATION 06/14/2025 Transplant - Dipti Samayoa TELEMEDICINE PHONE NEW 06/14/2025 Transplant - Dipti Macias TELEMEDI CINE PHONE NEW
--- OUTSIDE RECORDS SUMMARY | 2025-05-23 16:56 | XMS_ITS | Clinical Summary ---
Author Organization [facility] Address [address] [place] [phone] Phone Care Team Providers Care Blueprinting And Photocopy Supervisor Name Role Phone Peyman Dunn MD Primary Care Provider [phone] Allergies Active Allergy Reactions Criticality Noted Date Comments Azathioprine 05/05/2024 Infliximab Anaphylaxis,Other (S ee Comments),Unknown High 11/23/2019 Medications acetaminophen (TYLENOL) 325 mg tablet Take 325 mg by mouth every 4 (four) hours as needed. Active ursodioL (ACTIGALL) 500 MG tablet Take 500 mg by mouth 2 (two) times a day. Take 1 tablet in the morning and 2 tablets in the evening Active ELIQUIS 5 mg tablet Take 5 mg by mouth 2 (two) times a day. Active ascorbic Acid (VITAMIN C) 500 mg CpER Take 500 mg by mouth daily. Active cholecalcifero l (VITAMIN D3) 2,000 unit capsule 1 capsule. Active cyanocobalamin , vitamin B-12, 1000 MCG tablet Take 1,000 mcg by mouth. Active diphenhydrAMIN E (BENADRYL) 25 mg capsule Take 50 mg by mouth every 6 (six) hours as needed. Active ferrous sulfate 325 mg (65 mg buckland iron) tablet daily. Active folic acid (FOLVITE) 1 MG tablet 1 tablet Orally Once a day Active omeprazole (PRILOSEC) 20 MG capsule Take 20 mg by mouth daily. Active propranoloL (INDERAL) 10 MG immediate release tablet Take 30 mg by mouth 2 (two) times a day. Active sertraline (ZOLOFT) 100 MG tablet 1 tablet Orally Once a day Active tiZANidine (ZANAFLEX) 4 MG capsule Take 4 mg by mouth nightly at bedtime as needed. 4 Active zolpidem (AMBIEN) 5 MG tablet Take 12.5 mg by mouth nightly at bedtime as needed. Active atorvastatin (LIPITOR) 20 MG tablet Take 20 mg by mouth nightly at bedtime. Active fenofibrate (TRICOR) 145 MG tablet Take 1 tablet (145 mg total) by mouth daily. 90 tablet 3 5 026 Active Additional Information Patient not taking.Reported on 05/10/2025 calcium citrate (CALCITRATE) 950 mg (200 mg elemental) tablet Take 1 tablet by mouth daily. Active amoxicillin-cl avulanate (AUGMENTIN) 875-125 mg per tablet Take 1 tablet (875 mg of amoxicillin total) by mouth 2 (two) times a day. 10 tablet 5 025 Discontinu ed(Stop Taking at Discharge) cefpodoxime (VANTIN) 100 MG tablet Take 1 tablet (100 mg total) by mouth 2 (two) times a day for 5 days. 10 tablet 5 025 Active Problems Problem Noted Date Diagnosed Date PSC (primary sclerosing cholangitis) 01/19/2025 UC (ulcerative colitis) 05/05/2024 Encounters Date Type Department Care Team Description 05/15/20 10:15 AM EDT Anesthesia Event [place] [address] ENDO DEPT 55 [facility], [address]th [place] [address] Felix Major MD, PhD Sharon Guerin RN 05/15/20 10:00 AM EDT - 05/15/20 11:00 AM EDT Surgery [place] [address] ENDO DEPT 55 [facility], [address] [place] [address] Geovani Sun MD ENDOSCOPIC RETROGRADE CHOLANGIOPANCREATOGRAPHY 05/15/20 9:40 AM EDT - 05/15/20 12:52 PM EDT Hospital Encounter [facility] 4 ENDO DEPT 55 [facility], [address] [place] [phone] Geovani Sun MD Discharge Disposition: Home or Self Care 05/15/20 25 9:30 AM EDT - 05/15/20 9:39 AM EDT Hospital Encounter [facility] Endoscopy, [place] 4 55 [facility], [address] [place] [address] Geovani Sun MD Discharge Disposition: Home or Self Care 05/15/20 25 Orders Only [facility] [address] [place] [phone] Faustino Dozier MD PSC (primary sclerosing cholangitis) (Primary Dx) 05/15/20 25 Procedure Pass [facility] 4 ENDO DEPT [address] [place] [address] 05/10/20 25 11:00 AM EDT Pre-Admission Testing [facility] Pre-Procedure Evaluation Department Please [place] [address] Geovani Sun MD 05/10/20 25 Telephone [facility] [address] [place] [address] Lakeshia Wright 05/08/20 25 Telephone [facility] [address] [place] [address] Faustino Dozier MD 05/03/20 25 Telephone [facility] Trans[facility] [address] [address] Kamini Wayne Appointment 05/02/20 25 Telephone [facility] [address] [place] [address] Margie Multani RN 05/02/20 25 Ancillary Orders [facility] [address] [place] [address] Merari Ruiz MD 05/01/20 25 Ancillary Orders [facility] [address] [place] [address] Merari Ruiz MD 05/01/20 25 Ancillary Orders [facility] [address] [place] [address] Merari Ruiz MD 04/30/20 Telephone [facility], [address]th [place] [address] Faustino Dozier MD 04/27/20 9:00 AM EDT Telemedicine [facility], [address] [place] [address] Merari Ruiz MD PSC (primary sclerosing cholangitis) (Primary Dx); Abnormal LFTs; Total bilirubin, elevated 04/25/20 Orders Only [facility] [address] [facility], [address] [place] [address] Faustino Dozier MD Abnormal LFTs (Primary Dx) 04/20/20 - 04/20/20 11:59 PM EDT Hospital Encounter [facility] [address] [place] [address] Merari Ruiz MD Discharge Disposition: Home or Self Care 04/12/20 1:15 PM EDT - 04/12/20 11:59 PM EDT Hospital Encounter [facility] Endoscopy, Fernando 4 55 [facility], [address] [place] [address] Van Owens MD, MPH Discharge Disposition: Home or Self Care 04/12/20 1:15 PM EDT - 04/12/20 2:15 PM EDT Surgery [facility] 4 ENDO DEPT 55 [facility], [address] [place] [address] Van Owens MD, MPH ENDOSCOPIC RETROGRADE CHOLANGIOPANCREATOGRAPHY 04/12/20 12:55 PM EDT Anesthesia Event [facility] 4 ENDO DEPT 55 [facility], [address] [place] [address] Alexis Escobar MD Famolare, Cynthia, RN 04/12/20 11:54 AM EDT - 04/12/20 4:02 PM EDT Hospital Encounter [facility] 4 ENDO DEPT 55 [facility], [address] [place] [address] Van Owens MD, MPH Discharge Disposition: Home or Self Care 04/12/20 Procedure Pass [facility] 4 END[address] DE[address] [place] [address], [address] [place] [address] 04/06/20 9:00 AM EDT Telemedicine [facility] [address] [address] Merari Ruiz MD Abnormal LFTs (Primary Dx); PSC (primary sclerosing cholangitis); Abnormal liver diagnostic imaging 04/06/20 Orders Only [facility] [address] [address] Margie Multani, RN Abnormal LFTs (Primary Dx); PSC (primary sclerosing cholangitis) 04/05/20 9:15 AM EDT Pre-Admission Testing [facility] Pre-Procedure Evaluation Department Please [place] [address] Unknown, Isiah, 04/05/20 Telephone [facility] [address] [address] Margie Multani, VIDAL 04/05/20 Telephone [facility] [address] [address] Margie Multani, RN 03/26/20 Telephone [facility] [address] [address] Margie Multani, RN 03/26/20 Transcribe Orders [facility] [address] [address] Endoscopist, Next Available Total bilirubin, elevated (Primary Dx) 03/26/20 Telephone [facility] [address] [address] Merari Ruiz MD 02/28/20 - 02/28/20 11:59 PM EDT Hospital Encounter [facility] [address] [place] [address] Merari Ruiz MD Discharge Disposition: Home or Self Care 02/28/20 Orders Only [facility] [address] [place] [address] [place] [address] Margie Multani RN PSC (primary sclerosing cholangitis) (Primary Dx) 02/27/20 - 02/27/20 11:59 PM EDT Hospital Encounter [facility] [address] [place] [address] Merari Ruiz MD Discharge Disposition: Home or Self Care from Last 3 Months Family History Medical History Relation Comments Arthritis Unspecified 1 arthritis; MGM Cataracts Unspecified 1 cataract; MGM Diabetes Unspecified 1 diabetes mellitu s; MGM Glaucoma Unspecified 1 glaucoma; ? MGM Hypertension Unspecified 1 hypertension; MG M Uncoded Family History Unspecified 1 cancer; m aternal aunt ? type Uncoded Family History Unspecified 2 cardiac; MGM s/p SD angina Uncoded Family History Unspecified 3 cva; MGM Relation Status Comments Unspecified 1 Unspecified 2 Unspecified 3 Social History Tobacco Use Types Packs/Day Years Used Date Smoking Tobacco: Former Cigarettes 1 5 0 09/27/1990 - 09/27/1995 Cigars Smokeless Tobacco: Never Tobacco Cessation:Counseling Given: Not Answered Alcohol Use Standard Drinks/Week Comments Not Currently [...] with a working camera? Not on file Intimate Partner Violence Answer Date R ecorded Are you denied basic needs s uch as food, clothing, or medical care? No 05/15/2025 In the past 12 months have y ou been in a relationship with a person who hurts, threatens, or tries to control you? No 05/15/2025 Are you denied basic needs s uch as food, clothing, or medical care? No 05/15/2025 In the past 12 months have y ou been in a relationship with a person who hurts, threatens, or tries to control you? No 05/15/2025 Sex and Gender Information Value Date Recorded Sex Assigned at Male 03/06/2024 2:42 PM EDT Legal Sex Male 6:28 PM EST Gender Identity Male 03/06/2024 2:42 PM EDT Sexual Orientation Straight 03/06/2024 2: 42 PM EDT Last Filed Vital Signs Vital Sign Reading Time Taken Comments Blood Pressure 109/63 05/15/2025 12:41 PM EDT Pulse 59 05/15/2025 12:41 PM EDT Temperature 36.3 C (97.3 F) 05/15/2025 11:39 AM EDT Respiratory Rate 20 05/15/2025 12:41 PM EDT Oxygen Saturation 98% 05/15/2025 12:41 PM EDT Inhaled Oxygen Concentration - - Weight 74.8 kg (165 lb) 04/05/2025 8:39 AM EDT Height 172.7 cm (5' 8 ) 04/05/2025 8:39 AM EDT Body Mass Index 25.09 04/05/2025 8:39 AM EDT Plan of Treatment Upcoming Encounters Date Type Department Care Team (Latest Contact Info) Description 05/30/2025 10:30 AM EDT Nurse Only [facility] [address] [place] [address] Merari Ruiz MD [address] [place] [address] [email or web address] Mya Kimbrough, VIDAL [address] [place] [address] [email or web address] 05/30/2025 12:00 PM EDT Blood Draw [facility] [address] [place] [address] Merari Ruiz MD [address] [place] [phone] [email or web address] 05/30/2025 1:30 PM EDT Office Visit [facility] [address] [address] Veronica Roe MD [address] [place] [address] [address] [place] [phone] [email or web address] 05/30/2025 2:00 PM EDT Social Work [facility] Social Service Department [address] [place] [address] Merari Ruiz MD [address] [place] [phone] [email or web address] Gabi Jiménez, [address] [phone] [email or web address] 06/14/2025 11:30 AM EDT Telemedicine - audio only [facility] [address] [place] [address] Merari Ruiz MD [address] [place] [address] [email or web address] Deb Samayoa [address] [place] [phone] [email or web address] 06/14/2025 12:00 PM EDT Nutrition [facility] [address] [place] [address] Merari Ruiz MD [address] [place] [phone] [email or web address] Marilou Macias, BONNIEN [address] [place] [phone] [email or web address] 08/14/2025 9:00 AM EST Telemedicine [facility] [address] [place] [address] Merari Ruiz MD [address] [facility] [address] [facility] [place] [address] [email or web address], [email or web address] 08/20/2025 12:30 PM EST Office Visit [facility] [address] [facility] 3[address] [place] [address] Oscar Goyal MD, PhD [address] [place] [address] [email or web address] [facility] Maintenance Due Date Last Done Comments LIPID PANEL 1977 DEPRESSION SCREENING 1989 HIV ONE-TIME SCREENING (18-65 YEARS) 1995 COLOGUARD 2022 COLONOSCOPY 2022 COLORECTAL CANCER SCREENING 2022 FIT TEST 2022 FOBT 2022 07/31/2020 SIGMOIDOSCOPY 2022 VIRTUAL COLONOSCOPY 2022 INFLUENZA VACCINE (#1) 2025 , 07/20/2023, 07/21/2022, Additional history exists CREATININE LEVEL 05/14/2026 05/14/2025, , 04/25/2025 SCREENING FOR DIABETES 05/14/2028 05/14/2025 Adult Td,Tdap Booster 04/04/2034 04/04/2024, 016 PNEUMOCOCCAL VACCINES (0-49 years) Aged Out 11/23/2017 No longer eligible based on patient's age to complete this topic HEPATITIS C SCREENING Completed 12/17/2021 COVID-19 VACCINE Completed 11/20/2024, 05/2022, 07/11/2021 SMOKING STATUS SCREENING (Once After 26 Yrs) Completed 05/15/2025 HEPATITIS A VACCINES Aged Out No long er eligible based on patient's age to complete this topic HIB VACCINES Aged Out No longer eligi ble based on patient's age to complete this topic MENINGOCOCCAL VACCINES (ACWY) Aged Out No longer eligible based on patient's age to complete this topic MENINGOCOCCAL VACCINES (B) Aged Out N o longer eligible based on patient's age to complete this topic Medical Devices Implanted Type Area Director Of Occupational Health Device Identifier Shelf Expiration Date Model / Serial / Lot Ivc Filter Procedures Procedure Name Priority Date/Time Associated Diagnosis Comments OUTSIDE LAB 05/17/2025 OUTSIDE LAB 05/16/2025 CHEMISTRY COMMENT Routine 05/15/2025 5:26 PM EDT CHEMISTRY COMMENT Routine 05/15/2025 5:23 PM EDT CHEMISTRY COMMENT Routine 05/15/2025 5:19 PM EDT NON-MARKETING [employer]ECASTER CYTOLOGY, NON CSF, NON URINE Routine 05/15/2025 2:40 PM EDT FL ENDOSCOPIC RETROGRADE BILIARY ONLY Routine 05/15/2025 11:18 AM EDT AIRWAY PLACEMENT Routine 05/15/2025 10:29 AM EDT ENDOSCOPIC RETROGRADE CHOLANGIOPANCREATOGRAPHY 05/15/2025 10:19 AM EDT PSC (primary sclerosing cholangitis) ENDOSCOPY PROCEDURE 05/15/2025 9:07 AM EDT EXTERNALLY RESULTED HEMATOLOGY Routine 05/14/2025 9:12 AM EDT PT-INR Routine 05/14/2025 9:12 AM EDT EXTERNALLY RESULTED CHEMISTRY Routine 9:12 AM EDT OUTSIDE LAB 05/07/2025 OUTSIDE LAB 05/07/2025 OUTSIDE LAB 05/07/2025 EXTERNALLY RESULTED CHEMISTRY Routine 12:08 PM EDT OUTSIDE IMAGING 05/01/2025 OUTSIDE IMAGING 05/01/2025 OUTSIDE LAB 04/27/2025 OUTSIDE LAB 04/27/2025 OUTSIDE IMAGING 04/27/2025 EXTERNALLY RESULTED CHEMISTRY Routine 12:57 PM EDT PT-INR Routine 04/26/2025 12:57 PM EDT EXTERNALLY RESULTED HEMATOLOGY Routine 04/26/2025 12:57 PM EDT OUTSIDE LAB 04/26/2025 MRI ABDOMEN OUTSIDE WITH INTERPRETATION OR CONSULT Routine 04/20/2025 12:00 AM EDT OUTSIDE LAB 04/13/2025 CHEMISTRY COMMENT Routine 04/12/2025 2:22 PM EDT BILIARY TRACT MALIGNANCY Routine 025 2:22 PM EDT FL ENDOSCOPIC RETROGRADE BILIARY ONLY Routine 04/12/2025 2:21 PM EDT ENDOSCOPY PROCEDURE 04/12/2025 1:26 PM EDT AIRWAY PLACEMENT Routine 04/12/2025 1:13 PM EDT ENDOSCOPIC RETROGRADE CHOLANGIOPANCREATOGRAPHY 04/12/2025 1:10 PM EDT Total bilirubin, elevated Special Needs Sent PREP via PG - AP on 03/26 NON-MARKETING [employer]ECASTER CYTOLOGY, NON CSF, NON URINE Routine 04/12/2025 8:20 AM EDT MOLECULAR DIAGNOSTICS Routine 04/12/2025 12:00 AM EDT MRI ABDOMEN OUTSIDE WITH INTERPRETATION OR CONSULT Routine 02/27/2025 12:00 AM EDT US ABDOMEN OUTSIDE (NO INTERPRETATION) Routine 02/26/2025 12:00 AM EDT from Last 3 Months Results * Outside Lab (05/17/2025) Only the most recent of9 resultswithin the time period is included. us Scanning Interface Provider LAB BLOOD ORDERABLES Final Result * Chemistry Comment (05/15/2025 5:26 PM EDT) Only the most recent of4 resultswithin the time period is included. Comments (Chemistry) L. HEPATIC DUCT BRUSH [facility] 05/15/2025 5:26 PM EDT 05/15/2025 5:26 PM EDT us Geovani Sun MD LAB BLOOD ORDERABLES Final Res ult [address] [place] [address] [address] * Non-Door Tender Cytology (05/15/2025 2:40 PM EDT) Only the most recent of2 resultswithin the time period is included. 05/15/2025 2:40 PM EDT 05/15/2025 2:40 PM EDT Narrative SEE NARRATIVE - 05/17/2025 10:01 [place] [address] Non Door Tender Cytology Report Patient Name: GIOVANNA NDIAYE : 1975 (Age: 49) Sex: M Institution: [facility] Location: [facility] Date of Collection: 05/15/2025 Date of Reported: 05/17/2025 10:01 Results to: Geovani Sun MD FINAL DIAGNOSIS SUMMARY FINAL DIAGNOSIS A. BILIARY BRUSH, RIGHT POSTERIOR HEPATIC: SPECIMEN ADEQUACY: Evaluation limited by scant cellularity. INTERPRETATION: NO MALIGNANT CELLS IDENTIFIED. DIAGNOSIS: Reactive ductal cells. Histiocytes. B. BILIARY BRUSH, RIGHT ANTERIOR HEPATIC: SPECIMEN ADEQUACY: Evaluation limited by scant cellularity. INTERPRETATION: NO MALIGNANT CELLS IDENTIFIED. DIAGNOSIS: Reactive ductal cells. Histiocytes. C. BILIARY BRUSH, LEFT HEPATIC DUCT: SPECIMEN ADEQUACY: Evaluation limited by scant cellularity. INTERPRETATION: NO MALIGNANT CELLS IDENTIFIED. DIAGNOSIS: Reactive ductal cells. Histiocytes. Electronically Signed Out By: ALYSSIA Lopez MD(ASCP)MB By his/her signature above, the pathologist listed as making the Final Diagnosis certifies that he/she has personally reviewed the case and confirmed the diagnosis. All slides and stains were of sufficient quality to establish the diagnosis, unless otherwise stated. CLINICAL HISTORY PSC SPECIMEN SOURCE A: BILIARY BRUSH, RIGHT POSTERIOR HEPATIC B: BILIARY BRUSH, RIGHT ANTERIOR HEPATIC C: BILIARY BRUSH, LEFT HEPATIC DUCT GROSS DESCRIPTION A. BILIARY BRUSH, RIGHT POSTERIOR HEPATIC: Received ThinPrep vial with brush labeled GIOVANNA NDIAYE, . One ThinPrep slide made. One ThinPrep vial to [facility] [facility] for NGS. One ThinPrep vial with brush to [facility] for FISH. B. BILIARY BRUSH, RIGHT ANTERIOR HEPATIC: Received ThinPrep vial with brush labeled GIOVANNA NDIAYE, . One ThinPrep slide made. One ThinPrep vial to [facility] [facility] for NGS. One ThinPrep vial with brush to [facility] for FISH. C. BILIARY BRUSH, LEFT HEPATIC DUCT: Received ThinPrep vial with brush labeled GIOVANNA NDIAYE, . One ThinPrep slide made. One ThinPrep vial to [facility] [facility] for NGS. One ThinPrep vial with brush to [facility] for FISH. Geovani Sun MD CYTOLOGY ORDERABLES Final Resu lt SEE NARRATIVE * FL ENDOSCOPIC RETROGRADE BILIARY ONLY (05/15/2025 11:18 AM EDT) Anatomical Region Laterality Modality Abdomen Radio Fluoroscop y 05/15/2025 1:55 PM EDT Narrative 05/15/2025 1:55 PM EDT Dose (mGy): 316234 Dose Area Product (DAP): 7476.9 Dose Area Product (DAP) Units: uGy.m2 Fluoro time (min): 12.1 Radimetrics Dose Report: CTDIvol: 0 mGy. DLP: 0 mGy-cm. Procedure Note Public Safety Teacher, Dictation - 05/15/2025 Dose (mGy): 706408 Dose Area Product (DAP): 7476.9 Dose Area Product (DAP) Units: uGy.m2 Fluoro time (min): 12.1 Radimetrics Dose Report: CTDIvol: 0 mGy. DLP: 0 mGy-cm. Geovani Sun MD IMG FL EXAMS Final Result * ANES ETT DOUBLE LUMEN - AIRWAY LDA (05/15/2025 10:29 AM EDT) Only the most recent of2 resultswithin the time period is included. Narrative Carley Oropeza CRNA - 05/15/2025 10:29 AM EDT Carley Oropeza CRNA 05/15/2025 10:39 AM Airway Placement Procedure Note: Patient was not difficult to intubate. Procedure performed by: fellow/resident/TIRE TECHNICIAN Anesthesiologist: Felix Major MD, PhD Fellow/Resident/TIRE TECHNICIAN: Carley Oropeza CRNA Airway procedure initiated at:05/15/2025 10:29 AM and ended at. Personal Protective Equipment: Gloves: gloves Mask Ventilation: Quality: not attempted Airway Placement: Technique: video laryngoscopy Rapid sequence induction: yes Details: Blade type: Glidescope Blade size: 3 Video view: grade 1 Video Laryngoscopy was: elective Number of attempts: 1 ETT type: cuffed ETT size: 7.5 ETT depth at teeth: 22 ETT cuff inflation volume: 7 Outcomes: Evidence of dental injury? no Complications observed? no us Felix Major MD, PhD NM ANESTHESIA Final Res ult * ENDOSCOPY PROCEDURE (05/15/2025 9:07 AM EDT) 05/15/2025 9:0 7 AM EDT Narrative Transcriptions Geovani Sun MD - 05/15/2025 9:07 AM EDT Gastrointestinal Endoscopy Unit Patient Name: Giovanna Ndiaye Exam Date: 05/15/2025 9:07 AM Date of : 1975 Admit Type: Outpatient Age: 49 Room: [place] [address] Gender: Male Note Status: Finalized Attending MD: Geovani Sun MD, Procedure: ERCP Indications: Primary sclerosing cholangitis Providers: Geovani Sun MD Referring MD: Peyman Dunn (Referring MD) Medicines: See the Anesthesia note for documentation of the administered medications Complications: No immediate complications. Procedure: After obtaining informed consent, the endoscope was passed under direct vision. Throughout the procedure, the patient's blood pressure, pulse, and oxygen saturations were monitored continuously. The Duodenoscope was introduced through the mouth, and used to inject contrast into and used to inject contrast into the bile duct. The ERCP was accomplished without difficulty. The patient tolerated the procedure well. Findings: The cable splicing technician film was normal. The scope was advanced to a normal major papilla in the descending duodenum. Examination of the pharynx, larynx and associated structures, and upper GI tract was normal. A biliary sphincterotomy had been performed. The sphincterotomy appeared open. A 0.035 inch angled Glidewire was passed into the biliary tree. The 12 mm balloon was passed over the guidewire and the bile duct was then deeply cannulated. Contrast was injected. I personally interpreted the bile duct images. There was brisk flow of contrast through the ducts. Image quality was excellent. Contrast extended to the hepatic ducts. Changes of PSC were noted with marked sclerotic ducts including the main bile duct, and all intrahepatic branches. Very mild dilation of the posterior ducts were noted. The right posterior were accessed. The RP Was dilated to 4mm. Extensive sludge and debris was removed. The right anterior was accessed as well. The takeoff was dilated to 4mm and brushed for cytology. Lastly, the left hepatic duct was accessed. Again marked sclerotic ducts were seen. This was dilated to 4mm and brushed for cytology. At this point using a balloon and basket, extensive cast material was removed Impression: ERCP with cholangiogram, dilation of right posterior, right anterior and left hepatic duct, brushing of all three ducts, and removal of extensive cast material Diffuse change sof PSC involving main duct and intrahepatic ducts mild dilation of the right posterior duct was seen Recommendation: - Discharge patient to home (with escort). Antibiotics for 5 days Attending Participation: I personally performed the entire procedure. Geovani Sun MD, [id number] 05/15/2025 11:33:40 AM The attending physician was present throughout the entire procedure. Number of Addenda: 0 Note Initiated On: 05/15/2025 9:07 AM Peyman Dunn MD GI PROCEDURE ORDERABLES Final Result * (ABNORMAL) EXTERNALLY RESULTED HEMATOLOGY (05/14/2025 9:12 AM EDT) Only the most recent of2 resultswithin the time period is included. [facility] WBC - External 7.3 4.8 - 10.8 x10*3/uL Comment:Done at [facility] RBC - External 4.30(A) 4.60 - 5.80 x10*6/uL Comment:Done at [facility] HCT - External 42.7 42.0 - 52.0 % Comment:Done at [facility] HGB - External 13.8(A) 14.0 - 18.0 g/dL Comment:Done at [facility] Platelets - External 194 180 - 400 x10*3/uL Comment:Done at [facility] MCV - External 99.3(A) 80.0 - 98.0 fL Comment:Done at [facility] RDW - External 15.2 11.0 - 16.0 % Comment:Done at [facility] Eosinophils - External Neutrophils - External WBC (manual) - External PT-INR (manual) - External) PTT - External Fibrinogen - External Fibrinogen (manual) - External Hemoglobin Electrophoresis - External Hemoglobin A1c - External Absolute Lymphocytes - External PTT - External Protime - External MONO ABS - EXTERNAL BASOS ABS - EXTERNAL Immature Gran - External 05/14/2025 9:12 AM EDT us Historical Provider MD LAB BLOOD ORDERABLES Mili l Result * (ABNORMAL) EXTERNALLY RESULTED CHEMISTRY (05/14/2025 9:12 AM EDT) Only the most recent of3 resultswithin the time period is included. [facility] Sodium - External 142 135 - 145 mmoI/L Comment:Done at [facility] Potassium - External 4.0 3.3 - 5.1 mmoI/L Comment:Done at [facility] Chloride - External 103 96 - 108 mmoI/L Comment:Done at [facility] CO2 - External 29 22 - 29 mmoI/L Comment:Done at [facility] BUN - External 10 9 - 16 mg/dL Comment:Done at [facility] Creatinine, serum - External 0.79 0.5 - 1.4 mg/dL Comment:Done at [facility] BUN/Creatinine - External eGFR - External Glucose - External 75 60 - 115 mg/dL Comment:Done at [facility] Calcium - External 9.6 8.4 - 10.2 mg/dL Comment:Done at [facility] Phosphorus - External Magnesium - External Albumin - External 3.7 3.6 - 5.0 g/dL Comment:Done at [facility] Bilirubin, total - External 14.8(A) 0.0 - 1.0 mg/dL Comment:Done at [facility] Bilirubin, direct - External Bilirubin (conjugated) - External Bilirubin, indirect - External Protein - External 8.0 6.5 - 8.0 g/dL Comment:Done at [facility] Alkaline Phosphatase - External 341(A) 39 - 117 U/L Comment:Done at [facility] AST - External 148(A) 5 - 37 U/L Comment:Done at [facility] ALT - External 146(A) 0 - 40 U/L Comment:Done at [facility] Amylase - External Lipase (u/L) - External Cholesterol, total - External LDL - External Triglycerides - External HDL - External TIBC - External Iron - External Ferritin - External Folate - External Vitamin B12 - External CK - External Cotinine - External C-peptide (ng/mL) - External C-peptide (pmol/L) - External HCG, qualitative - External HCG, total - External NT-proBNP - External PTH - External TSH - External T3 - External Total T4 - External Free T4 - External Vitamin D 25(OH) - External AFP (Tumor Marker) - External Uric Acid - External PSA - External GGT - External Lactate, dehydrogenase - External Ammonia - External Vitamin A - External Alk phos: Intestinal Isoenzymes - External Alk phos: Bone Isoenzymes - External Alk phos: Liver Isoenzymes - External Alk phos: Placental Isoenzymes - External Alk phos: Macrohepatic Isoenzymes - External Cystatin C - External 05/14/2025 9:12 AM EDT us Historical Provider LAB BLOOD ORDERABLES Mili l Result * PT-INR (05/14/2025 9:12 AM EDT) Only the most recent of2 resultswithin the time period is included. PT - External 11.5 10.9 - 12.4 SEC Comment:Done at [facility] INR - External 1.0 0.9 - 1.1 Comment:Done at [facility] 05/14/2025 9:12 AM EDT us Historical Provider MD LAB BLOOD ORDERABLES Mili l Result * Outside Imaging Report Only (05/01/2025) us Scanning Interface Provider IMG XR CHEST Mili l Result * Outside Imaging Report Only (05/01/2025) us Scanning Interface Provider IMG XR CHEST Mili l Result * Outside Imaging Report Only (04/27/2025) us Scanning Interface Provider IMG XR CHEST Mili l Result * MRI Abdomen Outside With Interpretation Or Consult (04/20/2025 12:00 AM EDT) 05/02/2025 1:36 PM EDT [facility] - 05/02/2025 3:08 PM EDT No significant change in the multifocal intrahepatic biliary ductal structures with mild upstream intrahepatic ductal dilation. ATTESTATION: I, Dr. Jeremiah Bolivar as teaching physician, have reviewed the images for this case and if necessary edited the report originally created by [employer]. Narrative [facility] - 05/02/2025 3:08 PM EDT MRI ABDOMEN OUTSIDE WITH INTERPRETATION OR CONSULT Referring clinician's provided indication for this examination in Epic: K83.01 (ICD-10-CM) - PSC (primary sclerosing cholangitis) R79.89 (ICD-10-CM) ; - Abnormal LFTs TECHNIQUE: MRI of the abdomen was performed without intravenous contrast. COMPARISON: MRI ABDOMEN OUTSIDE WITH INTERPRETATION OR CONSULT FINDINGS: Lower chest: No effusions. Liver: No focal lesions. Biliary: Mild intrahepatic biliary ductal dilation with multiple focal segments of narrowing in the central liver. The greatest caliber duct is located in segment 2/3 and measures up to 4 mm (13:39). Appearance is unchanged compared to February 27, 2025. No cholelithiasis. Spleen: Similar mild splenomegaly to 13.8 cm (4:22) Pancreas: No masses or ductal dilatation. Adrenal glands: No nodules. Kidneys/ureters: No solid masses or hydronephrosis. Bowel: No distention or wall thickening. Peritoneum/retroperitoneum: Oval intermediately T2 hyperintense mass with a few regions of intrinsic T1 hyperintensity along the right psoas muscle measures 4.0 x 2.1 cm (3:17); though incompletely evaluated this finding is similar in size to January 30, 2021 and this finding may represent hematoma. Lymph nodes: Unchanged periportal lymphadenopathy with largest node measuring up to 2.3 cm (4:15), likely reactive. Vessels: No abdominal aortic aneurysm. IVC filter. Bones/soft tissues: No marrow replacing lesions. Procedure Note Jeremiah Bolivar MD - 05/02/2025 MRI ABDOMEN OUTSIDE WITH INTERPRETATION OR CONSULT Referring clinician's provided indication for this examination in Epic:K83.01 (ICD-10-CM) - PSC (primary sclerosing cholangitis) R79.89(ICD-10-CM) ; - Abnormal LFTs TECHNIQUE: MRI of the abdomen was performed without intravenous contrast. COMPARISON: MRI ABDOMEN OUTSIDE WITH INTERPRETATION OR [id number] FINDINGS: Lower chest: No effusions. Liver: No focal lesions. Biliary: Mild intrahepatic biliary ductal dilation with multiple focalsegments of narrowing in the central liver. The greatest caliber duct islocated in segment 2/3 and measures up to 4 mm (13:39). Appearance isunchanged compared to February 27, 2025. No cholelithiasis. Spleen: Similar mild splenomegaly to 13.8 cm (4:22) Pancreas: No masses or ductal dilatation. Adrenal glands: No nodules. Kidneys/ureters: No solid masses or hydronephrosis. Bowel: No distention or wall thickening. Peritoneum/retroperitoneum: Oval intermediately T2 hyperintense mass witha few regions of intrinsic T1 hyperintensity along the right psoas musclemeasures 4.0 x 2.1 cm (3:17); though incompletely evaluated this findingis similar in size to January 30, 2021 and this finding may representhematoma. Lymph nodes: Unchanged periportal lymphadenopathy with largest nodemeasuring up to 2.3 cm (4:15), likely reactive. Vessels: No abdominal aortic aneurysm. IVC filter. Bones/soft tissues: No marrow replacing lesions. IMPRESSION: No significant change in the multifocal intrahepatic biliary ductalstructures with mild upstream intrahepatic ductal dilation. ATTESTATION: I, Dr. Jeremiah Bolivar as teaching physician, havereviewed the images for this case and if necessary edited the reportoriginally created by [employer]. us Merari Ruiz MD IMG OUTSIDE IMAGING W/ INTERPR ETATION Final Result [address] [address] * Biliary tract malignancy (04/12/2025 2:22 PM EDT) Pathology Pancreatobiliary FISH SEE BELOW [facility] Comment: (NOTE) Pancreatobiliary FISH Report Pancreatobiliary FISH Specimen Source Bile duct stricture brushing Fixative -------- PreservCyt Pancreatobiliary FISH Gross Description Received 30 mL fluid in PreservCyt with brush. 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 Close clinical correlation and follow-up are recommended. Sourav Rodgers, et al. Gastroenterology. 2006;131:3871-7296; Brit Sullivan et al. AM J Clin Pathol. 2007;128:272-279. UroVFederated Mediaion Bladder Cancer Kit probes were used to detect aneuploidy for chromosomes 3, 7, and 17 via fluorescence in situ hybridization (FISH). Results from this test are intended for use in conjunction with, and not in lieu of, current standard diagnostic procedures as an aid for initial diagnosis of pancreatobiliary carcinoma or related sources. This test was developed and its performance characteristics determined by [employer]. It has not been cleared or approved by the US Food and Drug Administration. This test was performed in a CLIA certified laboratory and is intended for clinical purposes. 04/25/25 Reviewed by: Jonny Hurst 04/26/25 Verified By: Vaibhav Mills M.D. electronic signature I certify that I personally conducted the evaluation on the above specimen(s) and have rendered the above interpretation(s). [facility], Department of Pathology [facility] [address], [place] [address] [facility] [address] Pancreatobiliary FISH Comments This test has been scanned by the Clarizen automated slide screener and reviewed by the pathologist (CPT 34400). Controls performed as expected. TC:153 ISCN: nuc lynette(CEP3x2,CEP7x3,9p21x2,NCA23m6) Pancreatobiliary FISH Clinical History Clinical Information: No clinical information provided. Performed By: [employer] [address] [place] [address] Photo Manager: Sebastian Kaba MD, PhD CLIA Number: [id number] Pancreatobiliary FISH Specimen Source Bile duct stricture brushing [facility] 04/12/2025 2:22 PM EDT 04/13/2025 1:12 PM EDT us Van Owens MD, MPH LAB BLOOD ORDERABLES Fi nal Result [facility] [address] [place] [address] [employer] [address] [place] [id number] * FL ENDOSCOPIC RETROGRADE BILIARY ONLY (04/12/2025 2:21 PM EDT) Anatomical Region Laterality Modality Abdomen Radio Fluoroscop y 04/12/2025 9:19 PM EDT Narrative 04/12/2025 9:19 PM EDT Dose (mGy): 50996 Dose Area Product (DAP): 942239 Dose Area Product (DAP) Units: cGy.cm2 Fluoro time (min): 15.6 Radimetrics Dose Report: CTDIvol: 0 mGy. DLP: 0 mGy-cm. Procedure Note Public Safety Teacher, Dictation - 04/12/2025 Dose (mGy): 97905 Dose Area Product (DAP): 494112 Dose Area Product (DAP) Units: cGy.cm2 Fluoro time (min): 15.6 Radimetrics Dose Report: CTDIvol: 0 mGy. DLP: 0 mGy-cm. 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 Estimated blood loss: None Procedure: After obtaining informed consent, the endoscope was passed under direct vision. Throughout the procedure, the patient's blood pressure, pulse, and oxygen saturations were monitored continuously. The Duodenoscope was introduced through the mouth, and used to inject contrast into and used to cannulate the bile duct. The ERCP was accomplished without difficulty. The patient tolerated the procedure well. Findings: The cable splicing technician film was normal. The esophagus was successfully intubated under direct vision. The scope was advanced to a normal post-sphincterotomy major papilla in the descending duodenum without detailed examination of the pharynx, larynx and associated structures, and upper GI tract. The upper GI tract was grossly normal. The bile duct was deeply cannulated with the short-nosed traction sphincterotome and glidewire. Contrast was injected. I personally interpreted the bile duct images. There was brisk flow of contrast through the ducts. Image quality was excellent. Contrast extended to the hepatic ducts and the gallbladder. The main bile duct and entire biliary tree contained multiple segmental stenoses with the entire common bile duct having a dominant stricture. The biliary sphincterotomy was extended to a total of 3 mm in length with a monofilament traction (standard) sphincterotome using ERBE electrocautery. There was no post-sphincterotomy bleeding. Dilation of the common bile duct and right hepatic duct with a 4 mm balloon dilator was successful. Cells for cytology, Snapshot and FISH were obtained by brushing in the entire main bile duct. To discover objects, the biliary tree was swept with a 9 mm balloon starting at the bifurcation. Sludge (gravel) was swept from the duct. No stents were placed. Contrast was seen to drain from the entire biliary drain. Impression: - Multiple segmental biliary strictures were found in the entire main bile duct and entire biliary tree. The strictures were secondary to primary sclerosing cholangitis. Dominant stricture involves the main common duct. - A biliary sphincterotomy was performed. - Common bile duct was successfully dilated. - Cells for cytology obtained in the main bile duct. - The biliary tree was swept and sludge was found. Recommendation: - Augmentin (amoxicillin/clavulanate) 500 mg PO q 8 hr for 5 days. Attending Participation: I personally performed the entire procedure. Van Owens MD, [id number] 04/12/2025 2:51:12 PM The attending physician was present throughout the entire procedure. Number of Addenda: 0 Note Initiated On: 04/12/2025 1:26 PM [facility] [place] [facility] PROCEDURE ORDERABLES Edite d Result - Final * Molecular Diagnostics (04/12/2025 12:00 AM EDT) 04/12/2025 04/13/2025 Narrative SEE NARRATIVE - 04/27/2025 8:58 [place] [address] [employer] Former Supervisor: Steven Dent MD CLIA ID # [id number] Molecular Pathology Report Solid SNAPSHOT Assay Patient Name: GIOVANNA NDIAYE : 1975 (Age: 49) Sex: M Institution: [facility] Location: [facility] Date of Collection: 04/12/2025 Date of Reported: 04/27/2025 20:58 Results To: Van Owens MD, MPH CLINICAL HISTORY: Gastrointestinal Tract (Biliary Tract) Malignancy SPECIMENS RECEIVED: A: Molecular test for Solid SNAPSHOT Assay GROSS DESCRIPTION: Biliary [place] Part A SLIDE-BLOCK DESCRIPTION: [id number] TEST - [id number] Assay INDICATION FOR TEST: Gastrointestinal Tract (Biliary Tract) Malignancy SPECIMEN(S) TESTED: Biliary [place] ([facility], [place], [place], [place]) RESULTS: DNA Variants: Variants of Clinical/Potential Significance: BRAF [id number] ([id number]) (10%) Variants of Unknown Significance: None Copy Number Variants: Not validated for biliary brush specimens. Tumor Mutation [place]: Not validated for biliary brush specimens. INTERPRETATION: POSITIVE for reportable variant(s) in BRAF. COMMENT: Disease burden could not be determined in the specimen, which may affect the detectability of DNA variants especially if the disease burden is low. Clinical correlation is recommended. Note that copy number analysis and tumor mutation burden (TMB) are not validated for biliary brush specimens. TEST INFORMATION: This test utilizes Anchored Multiplex PCR (polymerase chain reaction) (AMP [1]) for single nucleotide variant (SNV), insertion/deletion (indel), and copy number detection in genomic DNA using the MobileVeda platform and Illumina NextSeq next generation sequencing (NGS). Briefly, a board-certified molecular pathologist performed microscopic review of routine H&E-stained sections using validated digital pathology or traditional microscopic workflows. The appropriate region(s) of interest were identified and circled, followed by tumor enrichment via macrodissection prior to nucleic acid extraction. The bookjam Rowe Solid Tumor v2 protocol was used to target the coding sequence of genes listed below. Illumina NextSeq 2 x 150 base paired-end sequencing reads were demutiplexed to generate FASTQ files that were transferred to the Bubbles Analysis pipeline for read alignment to the hg19 human genome, variant detection, and annotation. This test has been validated to detect (1) SNV and indel variants at 5% allelic frequency or higher in target regions with sufficient read coverage, (2) gene level copy number variants, and (3) an approximated tumor mutation burden (TMB). TMB (tumor mutation burden): A numeric TMB prediction score (reported as mutations/megabase (Mb)) was generated after standard DNA somatic variant analysis, filtering, counting, and fitting based on the ArcherDx TMB model to provide a score that correlates with TMB as measured by whole exome sequencing (AGUSTINA). A summarized TMB category (high, intermediate or low) interpretation is also provided. Due to variability in panel-based TMB calculations, an intermediate range of 5-20 is adopted between the low and high categories. Disclaimer: TMB estimation based on variant counting in targeted panels is an approximation of tumor mutation burden as compared to other assays (e.g., AGUSTINA). Copy number analysis shows the following limitations: (1) aneuploidy cannot be distinguished from gene specific copy gains or copy losses, (2) limited sensitivity for borderline/weak copy gains or copy losses, (3) limited sensitivity in specimens with low tumor cellularity, (4) limited performance in poor quality specimens showing suboptimal coverage, and (5) absolute copy number status cannot be determined. The SNV/indel and CNV gene targets covered by this test are as follows (coding sequence): ABL1, ACVR1, AKT1, AKT2, AKT3, ALK, APC, AR, ARID1A, ARID1B, ARID2, CASSY, ATR, ATRX, AURKA, B2M, BAP1, BARD1, BCOR, BLM, BMPR1A, BRAF, BRCA1, BRCA2, BRIP1, CCND1, CCND2, CCND3, CCNE1, CDH1, CDK12, CDK4, CDK6, CDKN2A, CDKN2B, CHD1, CHEK1, CHEK2, CIC, CSF1R, CTNNB1, DAXX, DDR2, DDX3X, DICER1, EGFR, EIF1AX, EP300, EPCAM, ERBB2, ERBB3, ERBB4, ERCC1, ERCC2, ESR1, EZH2, FANCA, FANCI, FANCL, FBXW7, FGF19, FGFR1, FGFR2, FGFR3, FGFR4, FH, FLCN, FLT1, FLT3, FLT4, FOXA1, FOXL2, FUBP1, GNA11, GNAQ, GNAS, H3F3A, H3F3B, EKVC9U0U, TWCS8L1I, HNF1A, HRAS, IDH1, IDH2, JAK1, JAK2, JAK3, KDM6A, KDR, KEAP1, KIT, KLF4, KMT2C, KMT2D (MLL2), KRAS, LZTR1, MAP2K1 (MEK1), MAP2K2 (MEK2), MAP3K1, MDM2, MDM4, MED12, MEN1, MET, MLH1, MPL, MRE11A, MSH2, MSH3, MSH6, MTOR, MUC16, MUTYH, MYC, MYCN, NBN, NF1, NF2, NKX2-1, NOTCH1, NOTCH2, NOTCH3, NOTCH4, NPM1, NRAS, NTRK1, NTRK2, NTRK3, PALB2, PBRM1, PDGFRA, PIK3CA, PIK3CB, PIK3R1, PLCB4, PMS2, POLD1, POLE, NQG8U2J, IPU8E9I, PRKD1, PTCH1, PTEN, PTPN11, RAD50, RAD51, RAD51B, RAD51C, RAD51D, RAD54L, RAF1, RB1, RET, RHOA, RICTOR, RNF43, ROS1, SDHA, SDHB, SDHC, SDHD, SETD2, SF3B1, SMAD2, SMAD4, SMARCA4, SMARCB1, SMO, SRC, SRSF2, STAG2, STK11, SUFU, TERT, TGFBR2, TP53, TP63, TRAF7, TSC1, TSC2, TSHR, U2AF1, VHL, XRCC2, XRCC3. MCKEE ANALYSIS PIPELINE VERSION: 7.4.2 MCKEE ANALYSIS WEB APPLICATION VERSION: 7.4.4 MATCHED ANNOTATION FROM NCBI AND EMBL-BIANCA (MARTHA) VERSION: 1.0 REFERENCES: Gopi et al. [place] Med 2014;20(12):1478-58. [PMID: [id number]] This test was developed, and its performance characteristics were determined by the [facility]. It has not been cleared or approved by the U.S. Food and Drug Administration. The FDA has determined that such clearance or approval is not necessary. This test is used for clinical purposes. Pursuant to the requirements of CLIA 88, this laboratory has established and verified the test accuracy and precision. Testing was performed at the [facility], [facility], [address] [place] [address]. Electronically Signed Out By: Miryam Wagner PhD us Van Owens MD, MPH PATHOLOGY ORDERABLES Fi nal Result SEE NARRATIVE * MRI Abdomen Outside With Interpretation Or Consult (02/27/2025 12:00 AM EDT) 05/02/2025 5:34 AM EDT Impressions [facility] - 05/02/2025 6:07 AM EDT Compared to 01/01/2025: No significant change in sequela of sclerosing cholangitis including intrahepatic and diffuse extrahepatic bile duct strictures. No suspicious focal hepatic or biliary lesion. Similar mild splenomegaly. Narrative [facility] - 05/02/2025 6:07 AM EDT MRI ABDOMEN OUTSIDE WITH INTERPRETATION OR CONSULT Referring clinician's provided indication for this examination in Epic: K83.01 (ICD-10-CM) - PSC (primary sclerosing cholangitis) R79.89 (ICD-10-CM) ; - Abnormal LFTs TECHNIQUE: MRI of the abdomen was performed with and without intravenous contrast. COMPARISON: MRI CHOLANGIOPANCREATOGRAPHY (MRCP) WITH AND WITHOUT CONTRAST FINDINGS: Lower Chest: Within normal limits. Liver: No suspicious focal hepatic lesion or global signal abnormality. Smooth external contour. Biliary: Similar smooth circumferential thickening and enhancement of the central intrahepatic and extrahepatic bile duct. Multifocal predominantly intrahepatic ductal irregularity/stricturing with areas of multifocal mild upstream dilation. Similar diffusely strictured/small caliber extrahepatic bile duct and high grade strictures of the downstream right and left hepatic ducts just upstream of the CHD confluence (series 6). No suspicious focal biliary lesion. Noninflamed gallbladder. No gallbladder mass. Spleen: Similar mild splenomegaly measuring 13.8 cm long axis (axial oblique). Pancreas: No solid mass or main duct dilatation. Adrenal glands: No nodules. Kidneys/ureters: No solid masses or hydronephrosis. Bowel: No distention or wall thickening. Peritoneum/retroperitoneum: No masses or fluid. Unchanged lenticular T1 hyperintensity abutting right psoas muscle without enhancement on subtraction images, likely sequelae of prior hematoma. Lymph nodes: Similar portal lymphadenopathy, likely reactive. Vessels: No abdominal aortic aneurysm. Suprarenal and infrarenal IVC filters are present with associated susceptibility artifact. Bones/soft tissues: No aggressive osseous lesion. Postsurgical changes within the anterior abdominal wall with diastasis recti. Procedure Note Anish Hernandes MD - 05/02/2025 MRI ABDOMEN OUTSIDE WITH INTERPRETATION OR CONSULT Referring clinician's provided indication for this examination in Epic:K83.01 (ICD-10-CM) - PSC (primary sclerosing cholangitis) R79.89(ICD-10-CM) ; - Abnormal LFTs TECHNIQUE: MRI of the abdomen was performed with and without intravenouscontrast. COMPARISON: MRI CHOLANGIOPANCREATOGRAPHY (MRCP) WITH AND WITHOUT [id number] FINDINGS: Lower Chest: Within normal limits. Liver: No suspicious focal hepatic lesion or global signal abnormality.Smooth external contour. Biliary: Similar smooth circumferential thickening and enhancement of thecentral intrahepatic and extrahepatic bile duct. Multifocal predominantlyintrahepatic ductal irregularity/stricturing with areas of multifocal mildupstream dilation. Similar diffusely strictured/small caliberextrahepatic bile duct and high grade strictures of the downstream rightand left hepatic ducts just upstream of the CHD confluence (series 6). Nosuspicious focal biliary lesion. Noninflamed gallbladder. No gallbladdermass. Spleen: Similar mild splenomegaly measuring 13.8 cm long axis (axialoblique). Pancreas: No solid mass or main duct dilatation. Adrenal glands: No nodules. Kidneys/ureters: No solid masses or hydronephrosis. Bowel: No distention or wall thickening. Peritoneum/retroperitoneum: No masses or fluid. Unchanged lenticular [id number] abutting right psoas muscle without enhancement onsubtraction images, likely sequelae of prior hematoma. Lymph nodes: Similar portal lymphadenopathy, likely reactive. Vessels: No abdominal aortic aneurysm. Suprarenal and infrarenal IVCfilters are present with associated susceptibility artifact. Bones/soft tissues: No aggressive osseous lesion. Postsurgical changeswithin the anterior abdominal wall with diastasis recti. IMPRESSION: Compared to 01/01/2025: No significant change in sequela of sclerosing cholangitis includingintrahepatic and diffuse extrahepatic bile duct strictures. No suspicious focal hepatic or biliary lesion. Similar mild splenomegaly. Merari Ruiz MD IMG OUTSIDE IMAGING W/ INTERPR ETATION Final Result Performing Organization Address City/[facility] Co de Phone Number [address] [address] * US Abdomen Outside (No Interpretation) (02/26/2025 12:00 AM EDT) Narrative [facility] IMG INTERFACES - 05/01/2025 8:41 AM EDT This study is for PACS storage only and not for interpretation. Merari Ruiz MD IMG OUTSIDE IMAGING W/OUT INTE RPRETATION Final Result Performing Organization Address City/[facility] Co de Phone Number [facility] INTERFACES from Last [address] [place] [address] ONE CARE MEDICARE REPLACEMENT CARE MEDICARE REPLACEMENT MEDICARE REPLACEMENT CARE MEDICARE REPLAC[place] [address] MEDICARE REPLACEMENT MEDICARE REPLACEMENT Care Teams Blueprinting And Photocopy Supervisor Relationship Specialty Start Date End Date Peyman Dunn MD [address] [place] [address] Drive [address] [place] [phone] PCP - General Internal Medicine 03/06/24 Additional Source Comments The information contained in this document represents components of the legal health record. It is not the complete legal health record.[facility]
--- OUTSIDE RECORDS SUMMARY | 2025-05-23 16:56 | XMS_ITS | Encounter Summary ---
Author Organization [facility] Address [address] [place] [address] Phone Care Team Providers Care Java Consultant Name Role Phone Peyman Dunn MD Primary Care Provider [phone] Encounter Details Date Type Department Care Team (Late st Contact Info) Description 04/05/2025 Telephone [facility] [address] [facility], 5th [place] [address] Margie Multani RN [address] [place] [address] [email or web address]. du Social History Tobacco Use Types Packs/Day [...] Description 05/30/2025 10:30 AM EDT Nurse Only [facility] [address] [place] [address] Merari Ruiz MD [address] [place] [address] Ravi@[facility] Mya Kimbrough, VIDAL [address] [place] [address] DENNISE@[facility] 05/30/2025 12:00 PM EDT Blood Draw [facility] [address] [place] [address] Merari Ruiz MD [address] [place] [address] Ravi@[facility] 05/30/2025 1:30 PM EDT Office Visit [facility] [address] [place] [address] Veronica Roe MD [address] [place] [address] MINESH@[facility] 05/30/2025 2:00 PM EDT Social Work [facility] Social Service Department [address] [place] [address] Merari Ruiz MD [address] [place] [address] Ravi@[facility] Gabi Jiménez, FURNITURE MOVER HELPER 15 [place] [phone] MARÍA@[facility] 06/14/2025 11:30 AM EDT Telemedicine - audio only [facility] [address] [place] [address] Merari Ruiz MD [address] [place] [address] Ravi@[facility] Deb Samayoa [address] [place] [address] [email or web address] 06/14/2025 12:00 PM EDT Nutrition [facility] [address] [address] Merari Ruiz MD [address] [place] [address] Ravi@[facility] Marilou Macias LDN 273 [place] [phone] [email or web address].or g 08/14/2025 9:00 AM EST Telemedicine [facility] [address] [address] Merari Ruiz MD [address] [place] [address] Ravi@[facility] 08/20/2025 12:30 PM EST Office Visit [facility] [address] [facility] 3[address] [place] [address] Oscar Goyal MD, PhD [address] [place] [address] Morena@ [email or web address] U documented as of this encounter Visit Diagnoses Not on filedocumented in this encounter Care Teams Java Consultant Relationship Specialty Start Date End Date Peyman Dunn MD [address] [place] [address] PCP - General Internal Medicine 03/06/24 documented as of this encounter Additional Source Comments The information contained in this document represents components of the legal health record. It is not the complete legal health record.[facility]
--- OUTSIDE RECORDS SUMMARY | 2025-05-23 16:56 | XMS_ITS | Encounter Summary ---
Author Organization [facility] Address [address] [place] [address] Phone Care Team Providers Care Substance Abuse Nurse Name Role Phone Peyman Dunn MD Primary Care Provider [phone] Encounter Details Date Type Department Care Team (Late st Contact Info) Description 04/12/2025 Procedure Pass [facility] 4 ENDO DEPT [address] [facility], 4th [place] [address] Social History Tobacco Use Types Packs/Day Years [...] as food, clothing, or medical care? No 04/12/2025 In the past 12 months have y ou been in a relationship with a person who hurts, threatens, or tries to control you? No 04/12/2025 Are you denied basic needs s uch as food, clothing, or medical care? No 04/12/2025 In the past 12 months have y ou been in a relationship with a person who hurts, threatens, or tries to control you? No 04/12/2025 Sex and Gender Information Value Date Recorded Sex Assigned at Male 03/06/2024 2:42 PM EDT Legal Sex Male 6:28 PM EST Gender Identity Male 03/06/2024 2:42 PM EDT Sexual Orientation Straight 03/06/2024 2: 42 PM EDT documented as of this encounter Plan of Treatment Upcoming Encounters Date Type Department Care Team (Latest Contact Info) Description 05/30/2025 10:30 AM EDT Nurse Only [facility] [address] [place] [address] Merari Ruiz MD [address] [place] [address] Ravi@[facility] Mya Kimbrough, VIDAL [address] [place] [address] DENNISE@[email or web address] 05/30/2025 12:00 PM EDT Blood Draw [facility] [address] [place] [address] Merari Ruiz MD [address] [place] [address] Ravi@[facility] 05/30/2025 1:30 PM EDT Office Visit [facility] [address] [place] [address] Veronica Roe MD [address] [place] [address] MINESH@[facility] 05/30/2025 2:00 PM EDT Social Work [facility] Social Service Department [address] [place] [address] Merari Ruiz MD [address] [place] [address] Ravi@[facility] Remedios Jiménezianna, SEROLOGY TECHNICIAN 15 [place] [phone] MARÍA@[facility] 06/14/2025 11:30 AM EDT Telemedicine - audio only [facility] [address] [place] [address] Merari Ruiz MD [address] [place] [address] Ravi@[facility] Deb Samayoa [address] [place] [address] [email or web address] 06/14/2025 12:00 PM EDT Nutrition [facility] [address] [place] [address] Merari Ruiz MD [address] [place] [address] Ravi@[facility] Marilou Macias, SUDARSHAN [address] [place] [phone] nate@[email or web address].or g 08/14/2025 9:00 AM EST Telemedicine [facility] [address] [address] Merari Ruiz MD [address] [place] [address] Ravi@[facility] 08/20/2025 12:30 PM EST Office Visit [facility] [address] [address] Oscar Goyal MD, PhD [address] [place] [address] Oscar_Jay Jay@ [facility]. U documented as of this encounter Visit Diagnoses Not on filedocumented in this encounter Care Teams Substance Abuse Nurse Relationship Specialty Start Date End Date Shaun, Peyman Giles MD [address] [place] [address] [place] [phone] PCP - General Internal Medicine 03/06/24 documented as of this encounter Additional Source Comments The information contained in this document represents components of the legal health record. It is not the complete legal health record.[facility]
--- OUTSIDE RECORDS SUMMARY | 2025-05-23 16:56 | XMS_ITS | Clinical Summary ---
Author Organization [facility], Address [address] [place] [address] [place] [address] Phone Care Team Providers Care Enrollment Nurse Name Role Phone Peyman Dunn MD Primary Care Provider [phone] Allergies Active Allergy Reactions Criticality Noted Date [...] 11/23/2019 Immunizations Immunization Administration Dates Next Due [facility] SARS-COV-2 07/11/2021 Family History Medical History Relation [...] PCV) 1996 Influenza Vaccine (#1) 2025 Insurance [facility] [place] [id number] 1 [place] [address] Care Teams Enrollment Nurse Relationship Specialty Start Date End Date Peyman Dunn MD [facility] [place] [address] [place]EE PCP - General 08/01/19
--- OUTSIDE RECORDS SUMMARY | 2025-05-23 16:56 | XMS_ITS | Encounter Summary ---
Author Organization [facility] Address [address] [place] [address] Phone Care Team Providers Care Upholsterer Helper Name Role Phone Peyman Dunn MD Primary Care Provider [phone] Encounter Details Date Type Department Care Team (Late st Contact Info) Description 05/15/2025 Procedure Pass [facility] 4 ENDO DEPT [address] [facility], 4th [place] [address] Social History Tobacco Use Types Packs/Day Years [...] Description 05/30/2025 10:30 AM EDT Nurse Only [facility] [address] [place] [address] Merari Ruiz MD [address] [place] [address] Ravi@[facility] Mya Kimbrough, VIDAL [address] [place] [address] DENNISE@[facility] 05/30/2025 12:00 PM EDT Blood Draw [facility] [address] [place] [address] Merari Ruiz MD [address] [place] [address] Ravi@[facility] 05/30/2025 1:30 PM EDT Office Visit [facility] [address] [place] [address] Veronica Roe MD [address] [place] [address] MINESH@[facility] 05/30/2025 2:00 PM EDT Social Work [facility] Social Service Department [address] [place] [address] Merari Ruiz MD [address] [place] [address] Ravi@[facility] Remedios Jiménezianna, WET ROOM SUPERVISOR [address] [place] [phone] MARÍA@[facility] 06/14/2025 11:30 AM EDT Telemedicine - audio only [facility] [address] [place] [address] Merari Ruiz MD [address] [place] [address] Ravi@[facility] Deb Samayoa [address] [place] [address] [email or web address] 06/14/2025 12:00 PM EDT Nutrition [facility] [address] [place] [address] Merari Ruiz MD [address] [place] [address] Ravi@[facility] Marilou Macias, SUDARSHAN [address] [place] [phone] [email or web address].or g 08/14/2025 9:00 AM EST Telemedicine [facility] [address] [address] Merari Ruiz MD [address] [place] [address] Ravi@[facility] 08/20/2025 12:30 PM EST Office Visit [facility] [address] [address] Oscar Goyal MD, PhD [address] [place] [address] Oscar_Jay Jay@ [facility]. U documented as of this encounter Visit Diagnoses Not on filedocumented in this encounter Care Teams Upholsterer Helper Relationship Specialty Start Date End Date Shaun, Peyman Giles MD [address] [place] [address] [place] [phone] PCP - General Internal Medicine 03/06/24 documented as of this encounter Additional Source Comments The information contained in this document represents components of the legal health record. It is not the complete legal health record.[facility]
--- OUTSIDE RECORDS SUMMARY | 2025-05-23 16:56 | XMS_ITS | Encounter Summary ---
Author Organization [facility] Address [address] [place] [address] Phone Care Team Providers Care Band Builder Name Role Phone Peyman Dunn MD Primary Care Provider [phone] Encounter Details Date Type Department Care Team (Late st Contact Info) Description 04/05/2025 Telephone [facility] [address] [facility], 5th [place] [address] Margie Multani RN [address] [place] [address] papi@[email or web address]. du Social History Tobacco Use Types Packs/Day [...] Description 05/30/2025 10:30 AM EDT Nurse Only [facility] [address] [place] [address] Merari Ruiz MD [address] [place] [address] Ravi@[facility] Mya Kimbrough, VIDAL [address] [place] [address] DENNISE@[facility] 05/30/2025 12:00 PM EDT Blood Draw [facility] [address] [place] [address] Merari Ruiz MD [address] [place] [address] Ravi@[facility] 05/30/2025 1:30 PM EDT Office Visit [facility] [address] [place] [address] Veronica Roe MD [address] [place] [address] MINESH@[facility] 05/30/2025 2:00 PM EDT Social Work [facility] Social Service Department [address] [place] [address] Merari Ruiz MD [address] [place] [address] Ravi@[facility] Gabi Jiménez, SALES SECRETARY [address] [place] [phone] MARÍA@[facility] 06/14/2025 11:30 AM EDT Telemedicine - audio only [facility] [address] [place] [address] Merari Ruiz MD [address] [place] [address] Ravi@[facility] Deb Samayoa [address] [place] [address] [email or web address] 06/14/2025 12:00 PM EDT Nutrition [facility] [address] [address] Merari Ruiz MD [address] [place] [address] Ravi@[facility] Marilou Macias LDN [address] [place] [phone] [email or web address] g 08/14/2025 9:00 AM EST Telemedicine [facility] [address] [address] Merari Ruiz MD [address] [place] [address] Ravi@[facility] 08/20/2025 12:30 PM EST Office Visit [facility] [address] [facility] 3rd [place] [address] Oscar Goyal MD, PhD [address] [place] [address] Morena@ [facility].ED U documented as of this encounter Visit Diagnoses Not on filedocumented in this encounter Care Teams Band Builder Relationship Specialty Start Date End Date Peyman Dunn MD [address] [place] [address] PCP - General Internal Medicine 03/06/24 documented as of this encounter Additional Source Comments The information contained in this document represents components of the legal health record. It is not the complete legal health record.[facility]
--- OUTSIDE RECORDS SUMMARY | 2025-05-23 16:56 | XMS_ITS | Encounter Summary ---
Author Organization [facility] Address [address] [address] Phone Care Team Providers Care Senior Accounts Payable Specialist Name Role Phone Peyman Dunn MD Primary Care Provider [phone] Encounter Details Date Type Department Care Team (Late st Contact Info) Description 05/02/2025 Telephone [facility] [address] [facility], 5th [place] [address] Margie Multani RN [address] [place] [address] [email or web address].[email or web address]. du Social History Tobacco Use Types Packs/Day [...] PM EDT documented as of this encounter Progress Notes * Margie Multani RN - 05/02/2025 3:54 PM EDT Spoke to patient today about getting labs (c/o yellowing of eyes ) They plan to go to [facility] for labs documented in this encounter Plan of Treatment Upcoming Encounters Date Type Department Care Team (Latest Contact Info) Description 05/30/2025 10:30 AM EDT Nurse Only [facility] [address] [place] [address] Merari Ruiz MD [address] [place] [address] Ravi@[facility] Mya Kimbrough, VIDAL [address] [place] [address] DENNISE@[facility] 05/30/2025 12:00 PM EDT Blood Draw [facility] [address] [place] [address] Merari Ruiz MD [address] [place] [address] Ravi@[facility] 05/30/2025 1:30 PM EDT Office Visit [facility] [address] [place] [address] Veronica Roe MD [address] [place] [address] CPZ[address] [place] [address] MINESH@[facility] 05/30/2025 2:00 PM EDT Social Work [facility] Social Service Department [address] [place] [address] Merari Ruiz MD [address] [place] [address] Ravi@[facility] Gabi Jiménez, [address] [phone] MARÍA@[facility] 06/14/2025 11:30 AM EDT Telemedicine - audio only [facility] [address] [place] [address] Merari Ruiz MD [address] [place] [address] Ravi@[facility] Deb Samayoa [address] [place] [address] [email or web address] 06/14/2025 12:00 PM EDT Nutrition [facility] [address] [place] [address] Merari Ruiz MD [address] [place] [address] Ravi@[facility] Marilou Macias LDN [address] [place] [phone] nate@[email or web address].or g 08/14/2025 9:00 AM EST Telemedicine [facility] [address] [facility], 5th [place] [address] Merari Ruiz MD [address] [address] Ravi@[facility] 08/20/2025 12:30 PM EST Office Visit [facility] [address] [address] Oscar Goyal MD, PhD [address] [place] [address] Morena@ [facility]. U documented as of this encounter Visit Diagnoses Not on filedocumented in this encounter Care Teams Senior Accounts Payable Specialist Relationship Specialty Start Date End Date Shaun, Peyman Giles MD [address] [place] [address] [address] [place] [phone] PCP - General Internal Medicine 03/06/24 documented as of this encounter Additional Source Comments The information contained in this document represents components of the legal health record. It is not the complete legal health record.[facility]
--- OUTSIDE RECORDS SUMMARY | 2025-05-23 16:56 | XMS_ITS | Patient Health Record ---
Author Organization [facility] Address [address] [place] [address] Care Team Providers Care Workforce Advisor Name Role Phone Po Peyman VILLA Primary Care Provider Arturo Nelson Unavailable [phone] Nivia Hidalgo Unavailable Unavailable Reason For Referral No Information Plan Of Treatment No Information Insurance Providers Payer Name Payer Address Payer Phone Subscriber Number Group Number Insured Name Patient Relationship to Insured Coverage Start Date Coverage End Date [facility] [address] [place] [address] [id number] GIOVANNA BUTLER Self - patient is the insured
--- OUTSIDE RECORDS SUMMARY | 2025-05-23 16:56 | XMS_ITS | Encounter Summary ---
Author Organization [facility] Address [address] [facility] [address] [place] [address] Phone Care Team Providers Care Seed Potato Cutter Name Role Phone Peyman Dunn MD Primary Care Provider Encounter Details Date Type Department Care Team (Late st Contact Info) Description 07/04/2024 Procedure Pass MRI, [facility] - [address], [address] [place] [id number] Social History Tobacco Use Types Packs/Day Years Used Date Smoking Tobacco: Never Smokeless Tobacco: Never Alcohol Use Standard Drinks/Week Comments Not Currently 0 (1 standard drink = 0.6 oz pur e alcohol) Education Answer Date Recorded Are you [...] Description 05/30/2025 10:30 AM EDT Nurse Only [facility] [address] [place] [address] Merari Ruiz MD [address] [place] [address] Ravi@[facility] Mya Kimbrough RN [address] [place] [address] [email or web address] 05/30/2025 12:00 PM EDT Blood Draw [facility] Trans[facility] [address] [place] [address] Merari Ruiz MD [address] [place] [address] Ravi@[facility] 05/30/2025 1:30 PM EDT Office Visit [facility] [address] [place] [address] 417[address] Veronica Roe MD [address] [place] [address] [email or web address]@[email or web address] 05/30/2025 2:00 PM EDT Social Work [facility] Social Service Department [address] [place] [address] Merari Ruiz MD [address] [place] [address] Ravi@[facility] Gabi Jiménez LICSW 15 [place] [phone] MARÍA@[facility] 06/14/2025 11:30 AM EDT Telemedicine - audio only [facility] [address] [place] [address] Merari Ruiz MD [address] [place] [address] Ravi@[facility] Deb Samayoa [address] [place] [address] [email or web address] 06/14/2025 12:00 PM EDT Nutrition [facility] [address] [address] Merari Ruiz MD [address] [place] [address] Ravi@[facility] Marilou Macias LDN [address] [place] [phone] [email or web address] 08/14/2025 9:00 AM EST Telemedicine [facility] [address] [address] Merari Ruiz MD [address] [place] [address] Ravi@[facility] 08/20/2025 12:30 PM EST Office Visit [facility] [address] [address] Oscar Goyal MD, PhD 243 [place] [address] Morena@ [email or web address]. U documented as of this encounter Visit Diagnoses Not on filedocumented in this encounter Care Teams Seed Potato Cutter Relationship Specialty Start Date End Date Peyman Dunn MD [address] [place] [address] [place] [phone] PCP - General Internal Medicine 03/06/24 documented as of this encounter Additional Source Comments The information contained in this document represents components of the legal health record. It is not the complete legal health record.[facility]
--- OUTSIDE RECORDS SUMMARY | 2025-05-23 16:57 | XMS_ITS | Encounter Summary ---
Author Organization [facility] Address [address] [place] [address] Phone Care Team Providers Care Railroad Signal Technician Name Role Phone Peyman Dunn MD Primary Care Provider [phone] Encounter Details Date Type Department Care Team (Latest Contact Info) Description 03/26/2025 Transcribe Orders [facility] [address] [place] [address], 5th [place] [address] Endoscopist, Next Available Total bilirubin, elevated (Primary Dx) Social History Tobacco Use Types Packs/Day Years [...] Description 05/30/2025 10:30 AM EDT Nurse Only [facility] Transplant Clinic [address] [place] [address] Merari Ruiz MD [address] [place] [address] Ravi@[facility] Mya Kimbrough, VIDAL [address] [place] [address] DENNISE@[facility] 05/30/2025 12:00 PM EDT Blood Draw [facility] Trans[facility] [address] [place] [address] Merari Ruiz MD [address] [place] [address] Ravi@[facility] 05/30/2025 1:30 PM EDT Office Visit [facility] [address] [place] [address] Veronica Roe MD [address] [place] [address] [email or web address] 05/30/2025 2:00 PM EDT Social Work [facility] Social Service Department [address] [place] [address] Merari Ruiz MD [address] [place] [address] Ravi@[facility] Gabi Jiménez LICSW 15 [place] [phone] MARÍA@[facility] 06/14/2025 11:30 AM EDT Telemedicine - audio only [facility] Trans[facility] [address] [place] [address] 134[address] Merari Ruiz MD [address] [place] [address] Ravi@[facility] Deb Samayoa [address] [place] [address] [email or web address] 06/14/2025 12:00 PM EDT Nutrition [facility] [address] [address] Merari Ruiz MD [address] [place] [address] Ravi@[facility] Marilou Macias LDN [address] [place] [phone] [email or web address] 08/14/2025 9:00 AM EST Telemedicine [facility] [address] [address] Merari Ruiz MD [address] [place] [address] Ravi@[facility] 08/20/2025 12:30 PM EST Office Visit [facility] [address] [address] Oscar Goyal MD, PhD [address] [place] [address] Morena@ [email or web address]. U documented as of this encounter Visit Diagnoses Diagnosis Total bilirubin, elevated- Primary documented in this encounter Care Teams Railroad Signal Technician Relationship Specialty Start Date End Date Po, Peyman Giles MD [address] [place] [address] [address] [place] [phone] (work) PCP - General Internal Medicine 03/06/24 documented as of this encounter Additional Source Comments The information contained in this document represents components of the legal health record. It is not the complete legal health record.[facility]
[2025-05-23 18:09] LABS: Alanine Aminotransferase 92 U/L (0-40); Albumin Level 3.8 g/dL (3.5-5.0); Alkaline Phosphatase 324 U/L (39-117); Aspartate Amino Transferase 100 U/L (5-37); Total Protein 8.2 g/dL (6.5-8.0)
== END 2025-05-23 15:43 | disposition home or self-care (01) ==
LOC: HO.LAB 15:42
PROVIDERS: PCP Internal Medicine; Visit Provider Internal Medicine
DX: K83.01 Primary sclerosing cholangitis (principal)
CPT/HCPCS: 36415; 80076

== ENCOUNTER 2025-06-08 10:27 | Outpatient (AMB) | payer OTHER, SELFPAY ==
--- OUTSIDE RECORDS SUMMARY | 2024-02-08 10:20 | XMS_ITS ---
Author Organization [facility] Address [address] [place] [address] Care Team Providers Care Deputy County Counsel Name Role Phone Peyman Dunn MD Primary Care Provider Arturo Nelson [phone] Nivia Hidalgo Unavailable Unavailable REASON FOR VISIT Patient presents today for ELEVATED LFT'S Encounters Encounter Location Date Provider Diagnosis [facility] [address] [place] [phone] 02/08/2024 Arturo Baxter Plan Of Treatment No Information Progress Notes * RODRICK BUTLEROB:1975 ( 49 yo M)Acc No.[id number]:02/08/2024 Progress Notes Patient: GIOVANNA RAINEY Provider: Russ Baxter MD :1975 A ge:48 Y S ex:Male Date:02/08/2024 Address:[address] [place] [address], [facility] Pcp:Peyman Dunn MD Subjective: * Chief Complaints: [...] Baxter MD Date: 0 02/08/2024 Generated for Cristianai ng/Faemileeg/eTransmitting on: 0 06/08/2025 12:04 PM EDT
--- OUTSIDE RECORDS SUMMARY | 2024-04-13 07:30 | XMS_ITS ---
Author Organization [facility] Address [address] [place] [address] Care Team Providers Care Gas Furnace Installer Name Role Phone Peyman Dunn Primary Care Provider Keely Treviño [phone] Encounters Encounter Location Date Provider Diagnosis [address] [address] 04/13/2024 Keely Charles Plan Of Treatment No Information Progress Notes * Kailash NDIAYE LDOB:1975 (49 yo M)Acc No.[id number]:04/13/2024 Progress Notes Patient: Jade RAINEYrge L Provider: Stanley Charles DPM :1975 A ge:48 Y S ex:Male Date:04/13/2024 Address:[address] [place] [address] [place] [id number] Pcp:Peyman Dunn Subjective: * Chief Complaints: * [...] Date: 04/13/2024 Generated for Cristianai ng/Faemileeg/eTransmitting on: 06/08/2025 12:01 PM EDT
--- NOTE | 2025-06-08 10:33 | MHC.PC.OV ---
Vital Signs 06/08/25 10:34 Height 5 ft 8 in Weight 172 lb 4 oz BMI 26.2 BP 130/70 Blood Pressure Location Lt brachial Position Sitting Pulse 63 Pulse Source Pulse Oximeter Temp 97.1 F Temp Source Temporal Artery Scan Pulse Oximetry (%) 98 Oxygen Delivery Method Room Air Intake Visit Reasons: Dental work Intake Note: Patient is here for a Pre-op for Tooth Extraction (Dental Procedure) scheduled with Dr Carmelo holcomb (Maxillofacial & implant surgery on 06/14/25. Freight Shipping Agent Required: No Glass Designer: Present Accompanied by: Spouse Allergies azathioprine (From IMURAN) Allergy (Unknown, Verified 06/08/25 10:33) PANCREASE SWELLING infliximab (From REMICADE) Allergy (Unknown, Verified 06/08/25 10:33) DIFFICULTY BREATHING mannitol (Reclast) Allergy (Unknown, Verified 06/08/25 10:33) joint pain silver (From TEGADERM AG MESH) Allergy (Unknown, Verified 06/08/25 10:33) BLISTERS water for injection,sterile (Reclast) Allergy (Unknown, Verified 06/08/25 10:33) joint pain zoledronic acid (Reclast) Allergy (Unknown, Verified 06/08/25 10:33) joint pain Tobacco use date assessed: 06/08/25 Dental Screening Dental Screen Date: 04/13/25 HPI HPI Comments History of Present Illness Details The patient is a 49-year-old male presenting for medical clearance for dental extraction due to liver disease. He also has a history of ulcerative colitis, which has been managed with medication. Additionally, the patient has iron deficiency anemia and hypertension, both of which are being monitored. He has a history of blood clots and is currently on anticoagulation therapy with Eliquis, and an IVC filter has been placed. The patient reports gastroesophageal reflux disease, mood disorder, and sleep disorder, which are being managed with lifestyle modifications and medications. He experiences fatigue with severe exertion but denies significant shortness of breath or chest pain during routine activities. Patient reports good exercise tolerance. As per his paperwork EKG is requested. 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 Mother Osteoporosis Heart problem HTN (hypertension) Maternal Aunt Breast cancer Social History Household Members: None Housing: House Are you a primary residential caregiver to a significant other at home: No Do you presently have visiting nurse or other home services: Yes Alcohol intake: current Alcohol intake frequency: does not drink Patient Tobacco Use Status: Former Tobacco user Tobacco use type: Cigarette e-Cigarette/Vaping Use: Never Used Second Hand Smoke Exposure: Yes Substance Use Type: Marijuana service: No Current occupational status: disabled Cognitive needs: No Hearing needs: No Vision needs: Yes (Glasses) Questionnaire Thrive Questionnaire Date Thrive assessed: 10/19/24 I am a: Patient What is your living situation today?: I have a place to live, but I am worried about losing it in the future Within the past 12 months, did the food you bought not last and you didn't have the money to get more?: Often true Within the past 12 months, did you worry whether your food would run out before you got money to buy more?: Never true Do you have trouble paying for medicines?: No Do you have trouble getting transportation to medical appointments?: Yes Do you have trouble paying your heating and electricity bill?: Yes Do you have trouble taking care of your child, family member or friend?: Yes Do you have trouble with day-to-day activities such as bathing, preparing meals, shopping, managing finances, etc.?: Yes Are you currently unemployed and looking for a job?: Yes Are you interested in more education?: No Currently or been in a relationship where the following occur: I choose not to answer THRIVE Score: 4 HO-7 AMB Questionnaire HO-7 Date HO - 7 assessed: 04/13/25 Source: Developed by Drs. Arturo Guerrero, Aubrie Burciaga, Nickolas Alejo and colleagues, with an educational lacie from [employer]. Review of Systems Const Details: Positives besides what was mentioned in HPI are in BOLD Constitutional: No Weight Change, No Fever, No Chills, No Night Sweats, No Fatigue, No Malaise ENT/Mouth: No Hearing Changes, No Ear Pain, No Nasal Congestion, No Sinus Pain, No Hoarseness, No sore throat, No Rhinorrhea, No Swallowing Difficulty Eyes: No Eye Pain, No Swelling, No Redness, No Foreign Body, No Discharge, No Vision Changes Cardiovascular: No Chest Pain, No SOB, No PND, No Dyspnea on Exertion, No Orthopnea, No Claudication, No Edema, No Palpitations Respiratory: No Cough, No Sputum, No Wheezing, No Smoke Exposure, No Dyspnea Gastrointestinal: No Nausea, No Vomiting, No Diarrhea, No Constipation, No Pain, No Heartburn, No Anorexia, No Dysphagia, No Hematochezia, No Melena, No Flatulence, No Jaundice Genitourinary: No Dysmenorrhea, No DUB, No Dyspareunia, No Dysuria, No Urinary Frequency, No Hematuria, No Urinary Incontinence, No Urgency, No Flank Pain, No Urinary Flow Changes, No Hesitancy Musculoskeletal: No Arthralgias, No Myalgias, No Joint Swelling, No Joint Stiffness, No Back Pain, No Neck Pain, No Injury History Skin: No Skin Lesions, No Pruritis, No Hair Changes, No Breast/Skin Changes, No Nipple Discharge Neuro: No Weakness, No Numbness, No Paresthesias, No Loss of Consciousness, No Syncope, No Dizziness, No Headache, No Coordination Changes, No Recent Falls Psych: No Anxiety/Panic, No Depression, No Insomnia, No Personality Changes, No Delusions, No Rumination, No SI/HI/AH/VH, No Social Issues, No Memory Changes, No Violence/Abuse Hx., No Eating Concerns Heme/Lymph: No Bruising, No Bleeding, No Transfusions History, No Lymphadenopathy Endocrine: No Polyuria, No Polydipsia, No Temperature Intolerance Physical exam (Primary Care) Vital Signs: Last Vital Signs Temp 97.1 F 06/08/25 10:34 Pulse 63 06/08/25 10:34 BP 130/70 06/08/25 10:34 Pulse Ox 98 06/08/25 10:34 Oxygen Delivery Method Room Air 06/08/25 10:34 BMI result Body Mass Index 26.2 Tobacco/Smoking Status: Tobacco use Status Tobacco use date assessed 06/08/25 06/08/25 10:40 Patient Tobacco Use Status Former Tobacco user 06/08/25 10:40 Tobacco use type Cigarette 06/08/25 10:40 e-Cigarette/Vaping Use Never Used 06/08/25 10:40 Thrive Assessment: Date of Thrive Assessment Date Thrive assessed 10/19/24 06/08/25 10:40 Currently or been in a relationship where the following occur: I choose not to answer Const Other: Pertinent findings are in BOLD GENERAL APPEARANCE NAD, activity normal for age, well developed/ well nourished, no cyanosis, pallor, or diaphoresis. EYES lids/conjunctiva normal. EARS/NOSE/THROAT Mucous membranes moist, nares normal, lips/teeth normal uvula midline without oral pharyngeal erythema, exudate or swelling TMs normal bilaterally. No lymphangitis/lymphedema. HEAD/NECK normocephalic atraumatic, no facial trauma, neck is supple. RESPIRATORY respiratory effort normal, speaks in full sentences, no tripod position, no accessory muscle use. Lungs clear to auscultation without rhonchi, wheezes, rales CARDIAC Regular rate and rhythm, no edema. ABDOMINAL Soft, ND/NT. No evidence of fluid wave. No pulsatile masses on exam, rebound tenderness, William sign or pain over Mcburney's point. MUSCLES/EXTREMITIES No abnormal range of motion, no swelling. SKIN Warm, pink and dry. No rashes, dermatoses, petechiae or lesions. NEUROLOGICAL Speech is clear and appropriate. Normal level of consciousness. Gait and coordination are normal. 5/5 strength in all extremities. PSYCH Normal mood and affect. Judgement/competence is appropriate Office Procedures EKG 67299-Lwkrqrfxzsmlththv, Complete Coding Level of Care Code Est Pt Level 2 (89566) Diagnoses Dental caries K02.9 CPT Codes EKG - CPT: 41608-Whmtnoatqqeucxewz, Complete ([id number]) Assessment & Plan Assessment & Plan (1) Dental caries: Code(s): K02.9 - Dental caries, unspecified Category: Medical Plan: Recommended holding Eliqiss 2 days prior to procedure and resume it 1 day after the procedure. EKG in office done: normal. Patient has recent labs so no need to repeat his labs. Plan We reviewed the patient's current medications and the plan to hold Eliquis for two days prior to the procedure and resume it one day after to minimize bleeding risk. The patient's recent lab results, including INR and liver function tests, were reviewed and found to be within normal limits, indicating a low risk for the procedure. Orders: Orders AMB EKG-In Office Today K02.9 - Dental caries, unspecified Medications: Refilled ondansetron 4 mg PO Q8H PRN 14 tabs 0RF nausea and vomiting potassium chloride ER (Milanor-Con M) 20 mEq PO BID 10 tabs 2RF
[2025-06-08 10:34] VITALS: BP 130/70; PULSE 63; TEMP 36.2; O2SAT 98; BMI 26.2
--- OUTSIDE RECORDS SUMMARY | 2025-06-08 12:02 | XMS_ITS | Patient Health Record ---
Author Organization [facility] Address [address] [place] [address] Care Team Providers Care Homoeopath Name Role Phone Peyman Dunn Primary Care Provider Keely Treviño Unavailable [phone] Allergies Allergen (clinical drug ingredient) Drug/Non Drug [...] Notes Problem Ulcer of right foot (disorder) (535384200) Ulcer of right foot with fat layer exposed (L97.512) Active confirmed Vital Signs Height 5ft 8in in 07/03/2024 Weight 185 lbs 07/03/2024 BMI 28.13 kg/m2 07/03/2024 Encounters Encounter Location Date Provider Diagnosis [facility] [address] [address] 07/03/2024 Keely Charles Closed displaced fracture of [...] Insured Coverage Start Date Coverage End Date [facility] [employer] Claims [address] [place] [phone] [id number] Kailash Ndiaye Self - patient is the insured Medical (General) History Medical History History ICD Code Anxiety Broken bones Crohns disease Colitis Depression Hiatal hernia High blood pressure Poor circulation Chicken pox Transfusions PSC Surgical History Surgery Date(Month/Year) colon removed Ostemy reversal right heel surgery colonoscopy Hospitalization History Reason Date(Month/Year) [place] [facility] [place] 04/03/24
--- OUTSIDE RECORDS SUMMARY | 2025-06-08 12:02 | XMS_ITS | Clinical Summary ---
Author Organization [employer] Address [address] [facility] 7t [place] [address] Care Team Providers Care Heel Painter Name Role Phone Unavailable Primary Care [...] 10 :33 AM EDT Plan of Treatment Upcoming Encounters Date Type Department Care Team (Late st Contact Info) Description 06/11/2025 11:00 AM EDT Office Visit [facility] ADULT [facility]AL [address] [place] [address] Health Maintenance Due Date Last Done Comments [...] 08/02/2018 Dental X-Ray: Full Mouth 12/23/2020 12/22/2017 Tobacco Screening 05/22/2025 05/22/2024 Influenza Vaccine (#1) 2025 , 07/20/2023, 07/21/2022, Additional history exists Zoster Vaccines (1 of [...] this topic Hepatitis C Screening Completed 12/17/2021 COVID-19 Vaccine Completed 11/20/2024, 05/2022, 07/11/2021 HIB Vaccines Aged Out No longer eligi [...] Patient Date of Phone Billing Address Personal/Family [address] [place] [address] [facility] MEDICAID STAND ADULT [facility]
--- OUTSIDE RECORDS SUMMARY | 2025-06-08 12:02 | XMS_ITS ---
Author Organization [facility] Address [address] [place] [address] Phone Care Team Providers Care Accessioner Name Role Phone Peyman Dunn MD Primary Care Provider [phone] Transplant Episode Liver Candidate [facility] ([place], [place]) - [facility] Evaluation began on 05/30/2025 Marked as Active on 06/06/2025 Reason: Ready for Committee Liver CoordinatorMya Kimbrough RN Fax: N/A Email: [email or web address] Scores Score Value Updated Expires Exceptions/Rhodelia sons CPRA Not available UNOS MELD Not available MELD (Calc) 15 05/30/2025 [place] Organ Diagnosis 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 Merari Ruiz MD Referring Physician [phone] [email or web address] Veronica Roe MD Transplant Surgeon [phone] [email or web address] Deb Samayoa Dial Marker [phone] [email or web address] SUDARSHAN Collins Dietitian [phone] N/A [email or web address] Events Pre-Transplant Referred: 04/27/2025 Evaluation began: 05/30/2025 Committee: 06/06/2025 Appointments (05/08/2025 - 07/08/2025) When With Visit Type Description 05/10/2025 PreAdmission Pre-Procedure Ph one Appointment 05/15/2025 Radiology - Manny Sun ENDOS COPIC RETROGRADE BILIARY AND PANCREATIC (ERCP) Obstruction of bile duct 05/30/2025 Social Servi - Luz Maria Jiménez Non Amrit lable Patient Care 05/30/2025 Transplant Lab 05/30/2025 Transplant - Rock Roe Liver Surgic al Evaluation 05/30/2025 Transplant - Avtar Hyman EVALUATION HEPATOL LIVER Canceled (Institution - Appt Made in Error) 05/30/2025 Transplant - Peng n, T PRE-TX EDUCATION Need for hepatitis B screening test; Screening for human immunodeficiency virus; PSC (primary sclerosing cholangitis); Pre-transplant evaluation for liver transplant; Malnutrition; Malnutrition screen; Nutritional deficiency disorder; Sequelae of unspecified nutritional deficiency; Hepatic cirrhosis, unspecified hepatic cirrhosis type, unspecified whether ascites present; Liver transplant status 06/14/2025 Transplant - Dipti Samayoa TELEMEDICINE PHONE NEW 06/14/2025 Transplant - Dipti Macias TELEMEDI CINE PHONE NEW
--- OUTSIDE RECORDS SUMMARY | 2025-06-08 12:03 | XMS_ITS | Encounter Summary ---
Author Organization [facility] Address [address] [place] [address] Phone Care Team Providers Care Air Quality Engineer Name Role Phone Peyman Dunn MD Primary Care Provider [phone] Encounter Details Date Type Department Care Team (Late st Contact Info) Description 04/05/2025 Telephone [facility] [address] [facility], 5th [place] [address] Margie Multani RN [address] [place] [address] [email or web address] Social History Tobacco Use Types Packs/Day [...] Department Care Team (Latest Contact Info) Description 06/14/2025 11:30 AM EDT Telemedicine - audio only [facility] Transplant Clinic [address] [place] [address] Merari Ruiz MD [address] [place] [address] Ravi@[facility] Deb Samayoa [address] [place] [address] [email or web address] 06/14/2025 12:00 PM EDT Nutrition [facility] Trans[facility] [address] [place] [address] Merari Ruiz MD [address] [place] [address] Ravi@[facility] Marilou Macias, SUDARSHAN [address] [place] [phone] [email or web address] 08/14/2025 9:00 AM EST Telemedicine [facility] [address] [place] [address] Merari Ruiz MD [address] [place] [address] Ravi@[facility] 08/20/2025 12:30 PM EST Office Visit [address] [address] Oscar Goyal MD, PhD [address] [place] [address] [email or web address]. U documented as of this encounter Visit Diagnoses Not on filedocumented in this encounter Care Teams Air Quality Engineer Relationship Specialty Start Date End Date Peyman Dunn MD [address] [place] [address] [address] [place] [address] PCP - General Internal Medicine 03/06/24 documented as of this encounter Additional Source Comments The information contained in this document represents components of the legal health record. It is not the complete legal health record.[facility]
--- OUTSIDE RECORDS SUMMARY | 2025-06-08 12:04 | XMS_ITS | Encounter Summary ---
Author Organization [facility] Address [address] [place] [address] Phone Care Team Providers Care Bleach Liquor Maker Name Role Phone Peyman Dunn MD Primary Care Provider [phone] Encounter Details Date Type Department Care Team (Late st Contact Info) Description 04/12/2025 Procedure Pass [facility] 4 ENDO DEPT 55 [address] [facility], 4th [place] [address] Social History Tobacco Use Types Packs/Day Years [...] EDT Telemedicine - audio only [facility] [address] [place] [address] Merari Ruiz MD [address] [place] [address] [email or web address] Deb Samayoa [address] [place] [address] [email or web address] 06/14/2025 12:00 PM EDT Nutrition [facility] [address] [place] [address] Merari Ruiz MD [address] [place] [address] [email or web address] Marilou Macias LDN [address] [place] [phone] [email or web address] 08/14/2025 9:00 AM EST Telemedicine [facility] [address] [place] [address] Merari Ruiz MD [address] [place] [address] [email or web address] 08/20/2025 12:30 PM EST Office Visit [facility] 243 [facility] 3rd [place] [address] Oscar Goyal MD, PhD [address] [place] [address] Morena@ [email or web address]. U documented as of this encounter Visit Diagnoses Not on filedocumented in this encounter Care Teams Bleach Liquor Maker Relationship Specialty Start Date End Date Po, Peyman Giles MD 2 [facility] [address] [place] [phone] PCP - General Internal Medicine 03/06/24 documented as of this encounter Additional Source Comments The information contained in this document represents components of the legal health record. It is not the complete legal health record.[facility]
--- OUTSIDE RECORDS SUMMARY | 2025-06-08 12:04 | XMS_ITS | Encounter Summary ---
Author Organization [facility] Address [address] [place] [address] Phone Care Team Providers Care [facility] Owner Name Role Phone Peyman Dunn MD Primary Care Provider [phone] Encounter Details Date Type Department Care Team (Latest Contact Info) Description 03/26/[address] [facility] [address] [place] [address], 5th [place] [address] Endoscopist, Next Available Total bilirubin, elevated (Primary [...] 11:30 AM EDT Telemedicine - audio only [facility] [address] [place] [address] Merari Ruiz MD [address] [place] [address] Ravi@[email or web address] Deb Samayoa [address] [place] [address] [email or web address] 06/14/2025 12:[address] [facility] [address] [place] [address] Merari Ruiz MD [address] [place] [address] Ravi@[email or web address] Marilou Macias LDN [address] [place] [phone] [email or web address] g 08/14/2025 9:[address] [facility] [address] [place] [address] Merari Ruiz MD [address] [place] [address] [email or web address] 08/20/2025 12:30 PM EST Office Visit [facility] 243 [facility] 3rd [place] [address] Oscar Goyal MD, PhD 243 [place] [address] Morena@ [email or web address] U documented as of this encounter Visit Diagnoses Diagnosis Total bilirubin, elevated- Primary documented in this encounter Care Teams [facility] Owner Relationship Specialty Start Date End Date Po, Lorenver Laredo, MD [address] [place] [address] PCP - General Internal Medicine 03/06/24 documented as of this encounter Additional Source Comments The information contained in this document represents components of the legal health record. It is not the complete legal health record.[facility]
--- OUTSIDE RECORDS SUMMARY | 2025-06-08 12:04 | XMS_ITS | Encounter Summary ---
Author Organization [facility] Address [address] [place] [address] Phone Care Team Providers Care Music Therapy Teacher Name Role Phone Peyman Dunn MD Primary Care Provider [phone] Encounter Details Date Type Department Care Team (Late st Contact Info) Description 04/05/2025 Telephone [facility] 55 [facility], 5th [place] [address] Margie Multani RN [address] [place] [address] [email or web address] du Social History Tobacco Use Types Packs/Day [...] [facility] [address] [place] [address] Merari Ruiz MD [address] [place] [address] Ravi@[email or web address] Deb Samayoa 90 [place] [address] [email or web address] 06/14/2025 12:00 PM EDT Nutrition [facility] [address] [place] [address] Merari Ruiz MD [address] [place] [address] Ravi@[email or web address] Marilou Macias, SUDARSHAN [address] [place] [phone] [email or web address] g 08/14/2025 9:00 AM EST Telemedicine [facility] [address] [place] [address] Merari Ruiz MD [address] [place] [address] Ravi@[email or web address] 08/20/2025 12:30 PM EST Office Visit [address] [address] Oscar Goyal MD, PhD [address] [place] [address] Morena@ [email or web address]. U documented as of this encounter Visit Diagnoses Not on filedocumented in this encounter Care Teams Music Therapy Teacher Relationship Specialty Start Date End Date Peyman Dunn MD [address] [place] [address] [address] [place] [address] PCP - General Internal Medicine 03/06/24 documented as of this encounter Additional Source Comments The information contained in this document represents components of the legal health record. It is not the complete legal health record.[facility]
--- OUTSIDE RECORDS SUMMARY | 2025-06-08 12:04 | XMS_ITS | Patient Health Record ---
Author Organization [facility] Address [address] [place] [address] Care Team Providers Care Music Agent Name Role Phone Po Peyman VILLA Primary Care Provider Arturo Nelson Unavailable [phone] Nivia Hidalgo Unavailable Unavailable Reason For Referral No Information Plan Of Treatment No Information Insurance Providers Payer Name Payer Address Payer Phone Subscriber Number Group Number Insured Name Patient Relationship to Insured Coverage Start Date Coverage End Date [facility] [address] [place] [address] [id number] GIOVANNA BUTLER Self - patient is the insured
--- OUTSIDE RECORDS SUMMARY | 2025-06-08 12:04 | XMS_ITS | Encounter Summary ---
Author Organization [facility] Address [address] [place] [address] Phone Care Team Providers Care Director Revenue Name Role Phone Peyman Dunn MD Primary Care Provider [phone] Encounter Details Date Type Department Care Team (Late st Contact Info) Description 05/15/2025 Procedure Pass [facility] MOE 4 ENDO DEPT 55 [address] [facility], 4th [place] [address] Social History Tobacco Use Types Packs/Day Years [...] [facility] [address] [place] [address] Merari Ruiz MD [address] [place] [address] Ravi@[email or web address] Deb Samayoa [address] [place] [address] [email or web address] 06/14/2025 12:00 PM EDT Nutrition [facility] [address] [place] [address] Merari Ruiz MD [address] [place] [address] Ravi@[facility] Marilou Macias LDN [address] [place] [phone] [email or web address] 08/14/2025 9:00 AM EST Telemedicine [facility] [address] [place] [address] Merari Ruiz MD [address] [place] [address] [email or web address] 08/20/2025 12:30 PM EST Office Visit [facility] 243 [facility] 3rd [place] [address] Oscar Goyal MD, PhD 243 [place] [address] Morena@ [facility]. U documented as of this encounter Visit Diagnoses Not on filedocumented in this encounter Care Teams Director Revenue Relationship Specialty Start Date End Date Po, Peyman Giles MD 2 [facility] [address] [place] [phone] PCP - General Internal Medicine 03/06/24 documented as of this encounter Additional Source Comments The information contained in this document represents components of the legal health record. It is not the complete legal health record.[facility]
--- OUTSIDE RECORDS SUMMARY | 2025-06-08 12:04 | XMS_ITS | Encounter Summary ---
Author Organization [facility] Address [address] [address] Phone Care Team Providers Care Binman Name Role Phone Peyman Dunn MD Primary Care Provider [phone] Encounter Details Date Type Department Care Team (Late st Contact Info) Description 05/02/2025 Telephone [facility] [address] [facility], 5th [place] [address] Margie Multani RN 273 [place] [address] [email or web address] [email or web address] du Social History Tobacco Use Types Packs/Day [...] of this encounter Progress Notes * Margie Multani, RN - 05/02/2025 3:54 PM EDT Spoke to patient today about getting labs (c/o yellowing of eyes ) They plan to go to [facility] for labs documented in this encounter Plan of Treatment Upcoming Encounters Date Type Department Care Team (Latest Contact Info) Description 06/14/2025 11:30 AM EDT Telemedicine - audio only [facility] [address] [address] Merari Ruiz MD [address] [place] [address] Ravi@[email or web address] Danita Deb [address] [place] [address] [email or web address] 06/14/2025 12:00 PM EDT Nutrition [facility] [address] [address] Merari Ruiz MD [address] [place] [address] Ravi@[email or web address] Marilou Macias, SUDARSHAN [address] [place] [address] [email or web address] g 08/14/2025 9:00 AM EST Telemedicine [facility] [address] [facility], 5th [place] [address] Merari Ruiz MD 55 [facility] [place] [address] [email or web address] 08/20/2025 12:30 PM EST Office Visit [facility] [place] [facility] 243 [facility] 3rd [place] [address] Oscar Goyal MD, PhD [address] [place] [address] [email or web address] U documented as of this encounter Visit Diagnoses Not on filedocumented in this encounter Care Teams Binman Relationship Specialty Start Date End Date Peyman Dunn MD [address] [place] [phone] PCP - General Internal Medicine 03/06/24 documented as of this encounter Additional Source Comments The information contained in this document represents components of the legal health record. It is not the complete legal health record.[facility]
--- OUTSIDE RECORDS SUMMARY | 2025-06-08 12:04 | XMS_ITS | Encounter Summary ---
Author Organization [facility] Address [address] [facility] [address] [place] [address] Phone Care Team Providers Care English Tutor Name Role Phone Peyman Dunn MD Primary Care Provider [phone] Encounter Details Date Type Department Care Team (Late st Contact Info) Description 07/04/2024 Procedure Pass MRI, [facility] - [address], [address] [place] [id number] Social History Tobacco Use Types Packs/Day Years [...] 11:30 AM EDT Telemedicine - audio only [facility] [address] [place] [address] Merari Ruiz MD [address] [place] [address] Ravi@[email or web address] Deb Samayoa 90 [place] [address] [email or web address] 06/14/2025 12:00 PM EDT Nutrition [facility] [address] [place] [address] Merari Ruiz MD [address] [place] [address] Ravi@[email or web address] Marilou Macias, SUDARSHAN [address] [place] [phone] [email or web address] g 08/14/2025 9:00 AM EST Telemedicine [facility] [address] [place] [address] Merari Ruiz MD [address] [place] [address] [email or web address] 08/20/2025 12:30 PM EST Office Visit [facility] 243 [facility] 3rd [place] [address] Oscar Goyal MD, PhD [address] [place] [address] Morena@ [email or web address]. U documented as of this encounter Visit Diagnoses Not on filedocumented in this encounter Care Teams English Tutor Relationship Specialty Start Date End Date Peyman Dunn MD [address] [place] [address] Drive [address] [place] [phone] PCP - General Internal Medicine 03/06/24 documented as of this encounter Additional Source Comments The information contained in this document represents components of the legal health record. It is not the complete legal health record.[facility]
--- OUTSIDE RECORDS SUMMARY | 2025-06-08 12:04 | XMS_ITS | Clinical Summary ---
Author Organization [facility], Address [address] [place] [address] [place] [address] Phone Care Team Providers Care Commercial Real Estate Underwriter Name Role Phone Peyman Dunn MD Primary Care Provider [phone] Allergies Active Allergy Reactions Criticality Noted Date [...] 11/23/2019 Immunizations Immunization Administration Dates Next Due [facility] SARS-COV-2 07/11/2021 Family History [...] PCV) 1996 Influenza Vaccine (#1) 2025 Insurance [facility] [place] [id number] 1 [place] [id number] Care Teams Commercial Real Estate Underwriter Relationship Specialty Start Date End Date Peyman Dunn MD [facility] INTER[facility] DC [address] [address] [address] MASOUD DEE PCP - General 08/01/19
--- OUTSIDE RECORDS SUMMARY | 2025-06-08 12:04 | XMS_ITS | Encounter Summary ---
Author Organization [facility] Address [address] [facility] [address] [place] [address] Phone Care Team Providers Care Global Category Manager Name Role Phone Peyman Dunn MD Primary Care Provider [phone] Encounter Details Date Type Department Care Team (Late st Contact Info) Description 06/05/2025 Documentation [facility] [address] [facility] [address] [place] [address] [facility] 55 [place] [address] ANASTACIA@[email or web address] Social History Tobacco Use Types Packs/Day Years [...] 11:30 AM EDT Telemedicine - audio only [facility] [address] [place] [address] Merari Ruiz MD [address] [place] [address] Ravi@[email or web address] Danita Deb [address] [place] [address] [email or web address] 06/14/2025 12:00 PM EDT Nutrition [facility] [address] [place] [address] Merari Ruiz MD [address] [place] [address] Ravi@[email or web address] Marilou Macias LDN [address] [place] [phone] [email or web address] 08/14/2025 9:00 AM EST Telemedicine [facility] [address] [place] [address] Merari Ruiz MD [address] [place] [address] [email or web address] 08/20/2025 12:30 PM EST Office Visit [facility] [address] [facility] 3rd [place] [address] Oscar Goyal MD, PhD [address] [place] [address] Morena@ [facility]. U documented as of this encounter Visit Diagnoses Not on filedocumented in this encounter Care Teams Global Category Manager Relationship Specialty Start Date End Date Po, Peyman Giles MD [address] [place] [address] [place] [phone] PCP - General Internal Medicine 03/06/24 documented as of this encounter Additional Source Comments The information contained in this document represents components of the legal health record. It is not the complete legal health record.[facility]
== END 2025-06-08 11:15 | disposition home or self-care (01) ==
LOC: HO.HMCH 10:28
PROVIDERS: PCP Internal Medicine; Visit Provider Internal Medicine
DX: Z01.818 Encounter for other preprocedural examination (principal); K76.9 Liver disease, unspecified; I10 Essential (primary) hypertension

== ENCOUNTER → 2025-06-08 10:27 | Outpatient (BNVA) | payer OTHER, SELFPAY | PROVIDERS: PCP Internal Medicine; Visit Provider Internal Medicine | DX: I10 Essential (primary) hypertension (principal); K02.9 Dental caries, unspecified; K51.90 Ulcerative colitis, unspecified, without complications; D50.9 Iron deficiency anemia, unspecified; K21.9 Gastro-esophageal reflux disease without esophagitis; Z79.01 Long term (current) use of anticoagulants | CPT/HCPCS: 93005; 99212 ==

== ENCOUNTER 2025-06-13 13:59 | Outpatient (REF) | payer OTHER, SELFPAY ==
--- OUTSIDE RECORDS SUMMARY | 2024-02-08 10:20 | XMS_ITS ---
Author Organization [facility] Address [address] [place] [phone] Care Team Providers Care Associate Professor Of Biostatistics Name Role Phone Peyman Dunn MD Primary Care Provider Arturo Nelson [phone] Nivia Hidalgo Unavailable Unavailable REASON FOR VISIT Patient presents today for ELEVATED LFT'S Encounters Encounter Location Date Provider Diagnosis [facility] [address] [place] [phone] 02/08/2024 Arturo Baxter Plan Of Treatment No Information Progress Notes * RODRICK BUTLEROB:1975 ( 49 yo M)Acc No.[id number]:02/08/2024 Progress Notes Patient: GIOVANNA RAINEY Provider: Russ Baxter MD :1975 A ge:48 Y S ex:Male Date:02/08/2024 Address:[address] [place] [address], [facility] Pcp:Peyman Dunn MD Subjective: * Chief Complaints: [...] Generated for Jo Ann ng/Faemileeg/eTransmitting on: 0 06/13/2025 05:43 PM EDT
--- OUTSIDE RECORDS SUMMARY | 2024-04-13 07:30 | XMS_ITS ---
Author Organization [facility] Address [address] [place] [address] Care Team Providers Care Machining Engineer Name Role Phone Peyman Dunn Primary Care Provider Keely Treviño [phone] Encounters Encounter Location Date Provider Diagnosis [address] [address] 04/13/2024 Keely Charels Plan Of Treatment No Information Progress Notes * Kailash NDIAYE LDOB:1975 (49 yo M)Acc No.[id number]:04/13/2024 Progress Notes Patient: Jade RAINEYrge L Provider: Stanley Charles DPM :1975 A ge:48 Y S ex:Male Date:04/13/2024 Address:[address] [place], [place] [id number] Pcp:Peyman Dunn Subjective: * Chief Complaints: * [...] Date: 04/13/2024 Generated for Cristianai ng/Faemileeg/eTransmitting on: 06/13/2025 05:42 PM EDT
--- OUTSIDE RECORDS SUMMARY | 2025-06-11 11:00 | XMS_ITS | Encounter Summary ---
Author Organization [employer] Address [address] [facility] 7t [place] [address] Care Team Providers Care Crutcher Helper Name Role Phone Unavailable Primary Care Provider Unavailabl e Reason for Visit * Reason Comments Dental Pain Upper left molar are a Encounter Details Date Type Department Care Team ([facility] st Contact Info) Description 06/11/2025 11:00 AM EDT Office Visit [facility] [address] [place] [address] Kem Estrada DDS [address] [place] [address] Dental caries (Primary Dx) Social History Tobacco Use Types Packs/Day Years Used Date Smoking Tobacco: Never Smokeless Tobacco: Never Alcohol Use Standard Drinks/Week Comments Defer 0 (1 standard drink = 0.6 oz pur e alcohol) Sex and Gender Information Value Date Recorded Sex Assigned at Male 07/27/2022 10:33 AM EDT Legal Sex Male 10:33 AM EDT Gender Identity Male 07/27/2022 10:33 AM EDT Sexual Orientation Straight 07/27/2022 10 :33 AM EDT documented as of this encounter Progress Notes * Kem Estrada DDS - 06/11/2025 11:00 AM EDT Patient is here for a consult # 3 and 15 On exam # 15 has decay on distal Which is subg Gingival inflammation around it. Slight discomfort on biting. Palp-ve, perc+ve, cold test +ve with lingering pain on # 15 # 3 has crown No intra or extra oral swelling On radiograph previously treated rct on # 3 looks good. I would not recommended any retreat rct Due to extent of decay on # 15 In my opinion tooth is non-restorable. Dx: previously treated and normal apical tissue on # 3 And non-restraoble # 15 Tx plan: ext # 15 Advised to him to go back to his dentist for restorative work. NV: exam and tx plan documented in this encounter Plan of Treatment Scheduled Orders Name Type Priority Associated Diagnoses Orde r Schedule 15 15 EXTRACTION, ERUPTED TOOTH OR EXPOSED ROOT (ELEVATION/FORCEPS REMOVAL) Dental Routine [address] arting 06/11/2025 documented as of this encounter Procedures Procedure Name Priority Date/Time Associated Diagnosis Comments 3 LIMITED ORAL EVALUATION - PROBLEM FOCUSED Routine 06/11/2025 11:00 AM EDT 3 INTRAORAL - PERIAPICAL FIRST RADIOGRAPHIC IMAGE Routine 06/11/2025 11:00 AM EDT documented in this encounter Visit Diagnoses Diagnosis Dental caries- Primary Unspecified dental caries documented in this encounter
[2025-06-13 14:22] LABS: MANUAL DIFF FLAG NO
[2025-06-13 15:06] LABS: Hematocrit 40.4 % (42.0-52.0); Hemoglobin 13.0 g/dl (14.0-18.0); Imm Gran Abs Auto 0.04 X10*3/uL (0.00-0.03); Imm Gran Pct Auto 0.6 % (0.0-0.4); Lymphocytes Absolute Auto 1.5 X10*3/uL (1.2-4.9); Mean Corpuscular HGB Conc 32.2 g/dl (31.0-36.0); Mean Corpuscular Hemoglobin 32.0 pg (27.0-33.0); Mean Corpuscular Volume 99.5 fL (80.0-98.0); NRBC Abs Auto 0.000 X10*3/uL (0.0-0.012); NRBC Pct Auto 0.0 /100WBC (0.0-0.2); Platelet Count 171 X10*3/uL (160-400); Red Blood Count 4.06 X10*6/uL (4.60-5.80); White Blood Count 6.2 X10*3/uL (4.8-10.8)
[2025-06-13 15:38] LABS: Alanine Aminotransferase 79 U/L (0-40); Albumin Level 3.9 g/dL (3.5-5.0); Alkaline Phosphatase 277 U/L (39-117); Anion Gap 13 (12-20); Aspartate Amino Transferase 92 U/L (5-37); Blood Urea Nitrogen 10 mg/dL (9-16); Calcium 9.3 mg/dL (8.4-10.2); Carbon Dioxide 25 mmol/L (22-29); Chloride 109 mmol/L (96-108); Estimated Glomerular Filt Rate > 60; Potassium 4.0 mmol/L (3.3-5.1); Sodium 143 mmol/L (135-145); Total Protein 8.0 g/dL (6.5-8.0)
--- OUTSIDE RECORDS SUMMARY | 2025-06-13 17:42 | XMS_ITS | Patient Health Record ---
Author Organization [facility] Address [address] [place] [address] Care Team Providers Care Toeing Stockings Name Role Phone Peyman Dunn Primary Care Provider Keely Treviño Unavailable [phone] Allergies Allergen (clinical drug ingredient) Drug/Non Drug [...] Notes Problem Ulcer of right foot (disorder) (715484189) Ulcer of right foot with fat layer exposed (L97.512) Active confirmed Vital Signs Height 5ft 8in in 07/03/2024 Weight 185 lbs 07/03/2024 BMI 28.13 kg/m2 07/03/2024 Encounters Encounter Location Date Provider Diagnosis [facility] [address] [address] 07/03/2024 Keely Charles Closed displaced fracture of [...] Coverage Start Date Coverage End Date [facility] [employer] Claims [address] [place] St[place] [phone] [id number] Kailash Ndiaye Self - patient is the insured Medical (General) History Medical History History ICD Code Anxiety Broken bones Crohns disease Colitis Depression Hiatal hernia High blood pressure Poor circulation Chicken pox Transfusions PSC Surgical History Surgery Date(Month/Year) colon removed Ostemy reversal right heel surgery colonoscopy Hospitalization History Reason Date(Month/Year) ER [facility]- Broken toe 04/03/24
--- OUTSIDE RECORDS SUMMARY | 2025-06-13 17:42 | XMS_ITS | Clinical Summary ---
Author Organization [employer] Address [address] [facility] 7t [place] [address] Care Team Providers Care School Photographer Name Role Phone Unavailable Primary Care Provider [...] mouth if needed at bedtime. 2 Active Encounters Date Type Department Care Team Description 06/11/2025 11:00 AM EDT [facility] [address] [place] [address] Kem Estrada DDS Dental caries (Primary Dx) from Last 3 Months Social History Tobacco Use Types Packs/Day Years [...] of 3 - 19+ 3-dose series) 1996 05/30/2025 Dental Oral Exam 06/25/2018 12/22/2017 Dental X-Ray: Bitewings 12/23/2018 12/22/2017 Dental Prophylaxis 01/31/2019 08/02/2018 Dental X-Ray: Full Mouth 12/23/2020 12/22/2017 Influenza Vaccine (#1) 2025 , 07/20/2023, 07/21/2022, Additional history exists Tobacco Screening 06/11/2026 06/11/2025 Zoster Vaccines (1 of 2) 2027 DTaP/Tdap/Td [...] Name Priority Date/Time Associated Diagnosis Comments 3 INTRAORAL - PERIAPICAL FIRST RADIOGRAPHIC IMAGE Routine 06/11/2025 11:00 AM EDT 3 LIMITED ORAL EVALUATION - PROBLEM FOCUSED Routine 06/11/2025 11:00 AM EDT PROPHYLAXIS - ADULT Routine 08/02/2018 1 2:00 AM EST INTRAORAL - COMPLETE SERIES OF RADIOGRAPHIC IMAGES Routine 12/22/2017 12:00 AM EDT COMPREHENSIVE ORAL EVALUATION - NEW OR ESTABLISHED PATIENT Routine 12/22/2017 12:00 AM EDT from Last 3 Months or Most Recently Relevant to Health Maintenance Insurance * Guarantor: KAILASH NDIAYE Account Type Relation to Patient Date of Phone Billing Address Personal/Family [address] [place] [phone] [facility] MEDICAID [facility] ADULT D[facility]AL [facility]
--- OUTSIDE RECORDS SUMMARY | 2025-06-13 17:42 | XMS_ITS ---
Author Organization [facility] Address [address] [place] [address] Phone Care Team Providers Care Vice President Of News Name Role Phone Peyman Dunn MD Primary Care Provider [phone] Transplant Episode Liver Candidate [facility] ([place], [place]) - [facility] Evaluation began on 05/30/2025 Marked as Active on 06/13/2025 Reason: Ready for Committee Liver CoordinatorMya Kimbrough RN Fax: N/A Email: [email or web address] Scores Score Value Updated Expires Exceptions/[place] sons CPRA Not available UNOS MELD Not available MELD (Calc) 15 05/30/2025 [place] Organ Diagnosis Organ Primary 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 Care Team Name Role Phone Fax Email Mya Kimbrough RN Liver Coordinator [phone] N/A [email or web address] Gabi Jiménez [facility] Food Service Ambassador [phone] N/A MARÍA@[facility] Faustino Dozier MD Referring Physician [phone] [email or web address] Merari Ruiz MD Referring Physician [phone] [email or web address] Veronica Roe MD Transplant Surgeon [phone] [email or web address] Deb Samayoa Order Schedule Clerk [phone] [email or web address] SUDARSHAN Collins Dietitian [phone] N/A [email or web address] Events Pre-Transplant Referred: 04/27/2025 Evaluation began: 05/30/2025 Committee: 06/13/2025 Appointments (05/13/2025 - 07/13/2025) When With Visit Type Description 05/15/2025 Radiology - [place] ENDOS [...]
--- OUTSIDE RECORDS SUMMARY | 2025-06-13 17:43 | XMS_ITS | Encounter Summary ---
Author Organization [facility] Address [address] [place] [address] Phone Care Team Providers Care Fire Hose Curer Name Role Phone Peyman Dunn MD Primary Care Provider [phone] Encounter Details Date Type Department Care Team (Late st Contact Info) Description 04/05/2025 Telephone [facility] [address] [facility], 5th [place] [address] Margie Multani RN [address] [place] [address] [email or web address]. du Social History Tobacco Use Types Packs/Day [...] [facility] [address] [place] [address] Merari Ruiz MD [address] [place] [address] Ravi@[facility] Deb Samayoa [address] [place] [address] [email or web address] 06/14/2025 12:00 PM EDT Nutrition [facility] [address] [place] [address] Merari Ruiz MD [address] [place] [address] Ravi@[facility] Marilou Macias, SUDARSHAN [address] [place] [phone] [email or web address] g 08/14/2025 9:00 AM EST Telemedicine [facility] [address] [place] [address] Merari Ruiz MD [address] [place] [address] Ravi@[facility] 08/20/2025 12:30 PM EST Office Visit [address] [address] Oscar Goyal MD, PhD [address] [place] [address] Morena@ [facility]. U documented as of this encounter Visit Diagnoses Not on filedocumented in this encounter Care Teams Fire Hose Curer Relationship Specialty Start Date End Date Peyman Dunn MD [address] [place] [address] [address] [place] [address] PCP - General Internal Medicine 03/06/24 documented as of this encounter Additional Source Comments The information contained in this document represents components of the legal health record. It is not the complete legal health record.[facility]
--- OUTSIDE RECORDS SUMMARY | 2025-06-13 17:43 | XMS_ITS | Encounter Summary ---
Author Organization [facility] Address [address] [place] [address] Phone Care Team Providers Care Quill Machine Operator Name Role Phone Peyman Dunn MD Primary Care Provider Encounter Details Date Type Department Care Team (Late st Contact Info) Description 05/15/2025 Procedure Pass [facility] MOE 4 ENDO DEPT [address] [facility], 4th [place] [address] Social History Tobacco Use Types Packs/Day Years [...] AM EDT Telemedicine - audio only [facility] [address] [place] [address] Merari Ruiz MD [address] [place] [address] Ravi@[facility] Deb Samayoa [address] [place] [address] [email or web address] 06/14/2025 12:00 PM EDT Nutrition [facility] [address] [place] [address] Merari Ruiz MD [address] [place] [address] Ravi@[facility] Marilou Macias LDN [address] [place] [phone] [email or web address] jaimie 08/14/2025 9:00 AM EST Telemedicine [facility] [address] [place] [address] Merari Ruiz MD [address] [place] [address] Ravi@[email or web address] 08/20/2025 12:30 PM EST Office Visit [facility] [address] [facility] 3rd [place] [address] Oscar Goyal MD, PhD [address] [place] [address] Morena@ [facility]. U documented as of this encounter Visit Diagnoses Not on filedocumented in this encounter Care Teams Quill Machine Operator Relationship Specialty Start Date End Date Po, Peyman Giles MD [address] [facility] [address] [place] [address] PCP - General Internal Medicine 03/06/24 documented as of this encounter Additional Source Comments The information contained in this document represents components of the legal health record. It is not the complete legal health record.[facility]
--- OUTSIDE RECORDS SUMMARY | 2025-06-13 17:43 | XMS_ITS | Encounter Summary ---
Author Organization [facility] Address [address] [address] Phone Care Team Providers Care Financial Systems Analyst Name Role Phone Peyman Dunn MD Primary Care Provider [phone] Encounter Details Date Type Department Care Team (Late st Contact Info) Description 05/02/2025 Telephone [facility] [address] [facility], 5th [place] [address] Margie Multani RN [address] [place] [address] [email or web address] du Social History Tobacco Use Types Packs/Day [...] eyes ) They plan to go to [facility] for labs documented in this encounter Plan of Treatment Upcoming Encounters Date Type Department Care Team (Latest Contact Info) Description 06/14/2025 11:30 AM EDT Telemedicine - audio only [facility] [address] [address] Merari Ruiz MD [address] [place] [address] Ravi@[facility] Danita Deb [address] [place] [address] [email or web address] 06/14/2025 12:00 PM EDT Nutrition [facility] [address] [address] Merari Ruiz MD [address] [place] [address] Ravi@[facility] Marilou Macias, SUDARSHAN [address] [place] [address] [email or web address] g 08/14/2025 9:00 AM EST Telemedicine [facility] [address] [facility], 5th [place] [address] Merari Ruiz MD [address] [facility] [place] [address] Ravi@[email or web address] 08/20/2025 12:30 PM EST Office Visit [facility] 243 [facility] 3[address] [place] [address] Oscar Goyal MD, PhD [address] [place] [address] Morena@ [email or web address] U documented as of this encounter Visit Diagnoses Not on filedocumented in this encounter Care Teams Financial Systems Analyst Relationship Specialty Start Date End Date Peyman Dunn MD [address] [place] [phone] PCP - General Internal Medicine 03/06/24 documented as of this encounter Additional Source Comments The information contained in this document represents components of the legal health record. It is not the complete legal health record.[facility]
--- OUTSIDE RECORDS SUMMARY | 2025-06-13 17:43 | XMS_ITS | Encounter Summary ---
Author Organization [facility] Address [address] [place] [address] Phone Care Team Providers Care Aluminizer Name Role Phone Peyman Dunn MD Primary Care Provider [phone] Encounter Details Date Type Department Care Team (Late st Contact Info) Description 06/13/2025 Committee Review [facility] [address] [facility] [address] [place] [address] Mya Kimbrough RN 55 [place] [address] DENNISE@[email or web address] Social History Tobacco Use Types Packs/Day Years [...] 11:30 AM EDT Telemedicine - audio only [facility] [address] [place] [address] Merari Ruiz MD [address] [place] [address] Ravi@[facility] Danita Deb [address] [place] [address] [email or web address] 06/14/2025 12:00 PM EDT Nutrition [facility] [address] [place] [address] Merari Ruiz MD [address] [place] [address] Ravi@[facility] Marilou Macias LDN [address] [place] [phone] [email or web address] jaimie 08/14/2025 9:00 AM EST Telemedicine [facility] [address] [place] [address] Merari Ruiz MD [address] [place], [place] [address]C-5th [place] [address] Ravi@[email or web address] INCLUDES [facility] 08/20/2025 12:30 PM EST Office Visit [facility] [address] [facility] [address] [place] [address] Oscar Goyal MD, PhD [address] [place] [address] Morena@ [facility]. U documented as of this encounter Visit Diagnoses Not on filedocumented in this encounter Care Teams Aluminizer Relationship Specialty Start Date End Date Shaun, Peyman Giles MD [address] [place] [address] Drive [address] [place] [address] PCP - General Internal Medicine 03/06/24 documented as of this encounter Additional Source Comments The information contained in this document represents components of the legal health record. It is not the complete legal health record.[facility]
--- OUTSIDE RECORDS SUMMARY | 2025-06-13 17:43 | XMS_ITS | Clinical Summary ---
Author Organization [facility], Address [address] [place] [address] [place] [address] Phone Care Team Providers Care Driver Supervisor Name Role Phone Peyman Dunn MD Primary Care Provider [phone] Allergies Active Allergy Reactions Criticality Noted Date [...] Immunizations Immunization Administration Dates Next Due [facility] SARS-COV-2 07/11/2021 Family History Medical [...] PCV) 1996 Influenza Vaccine (#1) 2025 Insurance [facility] [place] [id number] 1 [place] [address] Care Teams Driver Supervisor Relationship Specialty Start Date End Date Peyman Dunn MD [facility] [place] [address] [facility] [facility] [address] [place] PCP - General 08/01/19
--- OUTSIDE RECORDS SUMMARY | 2025-06-13 17:43 | XMS_ITS | Patient Health Record ---
Author Organization [facility] Address [address] [place] [address] Care Team Providers Care Comic Writer Name Role Phone Po Peyman VILLA Primary Care Provider Arturo Nelson Unavailable [phone] Nivia Hidalgo Unavailable Unavailable Reason For Referral No Information Plan Of Treatment No Information Insurance Providers Payer Name Payer Address Payer Phone Subscriber Number Group Number Insured Name Patient Relationship to Insured Coverage Start Date Coverage End Date [facility] [address] [place] [address] [id number] GIOVANNA [place] Self - patient is the insured
--- OUTSIDE RECORDS SUMMARY | 2025-06-13 17:43 | XMS_ITS | Encounter Summary ---
Author Organization [facility] Address [address] [place] [address] Phone Care Team Providers Care Agriculture Internship Name Role Phone Peyman Dunn MD Primary Care Provider [phone] Encounter Details Date Type Department Care Team (Latest Contact Info) Description 03/26/2025 Transcribe Orders [facility] [address] [place] [address], 5th [place] [address] Endoscopist, Next Available Total bilirubin, elevated (Primary [...] 11:30 AM EDT Telemedicine - audio only [facility] [address] [place] [address] Merari Ruiz MD [address] [place] [address] Ravi@[facility] Deb Samayoa [address] [place] [address] [email or web address] 06/14/2025 12:00 PM EDT Nutrition [facility] [address] [place] [address] Merari Ruiz MD [address] [place] [address] Ravi@[facility] Marilou Macias LDN [address] [place] [phone] [email or web address] g 08/14/2025 9:00 AM EST Telemedicine [facility] [address] [place] [address] Merari Ruiz MD [address] [place] [address] Ravi@[facility] 08/20/2025 12:30 PM EST Office Visit [facility] [address] [facility] 3rd [place] [address] Oscar Goyal MD, PhD 243 [place] [address] Morena@ [email or web address] U documented as of this encounter Visit Diagnoses Diagnosis Total bilirubin, elevated- Primary documented in this encounter Care Teams Agriculture Internship Relationship Specialty Start Date End Date Po, Lorenver [place], MD [address] [place] [address] PCP - General Internal Medicine 03/06/24 documented as of this encounter Additional Source Comments The information contained in this document represents components of the legal health record. It is not the complete legal health record.[facility]
--- OUTSIDE RECORDS SUMMARY | 2025-06-13 17:43 | XMS_ITS | Encounter Summary ---
Author Organization [facility] Address [address] [place] [address] Phone Care Team Providers Care Sawsmith Name Role Phone Peyman Dunn MD Primary Care Provider [phone] Encounter Details Date Type Department Care Team (Late st Contact Info) Description 04/05/2025 Telephone [facility] [address] [facility], 5th [place] [address] Margie Multani RN [address] [place] [address] [email or web address]. du Social History Tobacco Use Types Packs/Day [...] 11:30 AM EDT Telemedicine - audio only [facility] Trans[facility] [address] [place] [address] Merari Ruiz MD [address] [place] [address] Ravi@[facility] Deb Samayoa 90 [place] [address] [email or web address] 06/14/2025 12:00 PM EDT Nutrition [facility] [address] [place] [address] Merari Ruiz MD [address] [place] [address] Ravi@[facility] Marilou Macias, SUDARSHAN [address] [place] [phone] [email or web address] g 08/14/2025 9:00 AM EST Telemedicine [facility] [address] [place] [address] Merari Ruiz MD [address] [place] [address] Ravi@[facility] 08/20/2025 12:30 PM EST Office Visit [address] [address] Oscar Goyal MD, PhD [address] [place] [address] Morena@ [facility]. U documented as of this encounter Visit Diagnoses Not on filedocumented in this encounter Care Teams Sawsmith Relationship Specialty Start Date End Date Peyman Dunn MD [address] [place] [address] [address] [place] [address] PCP - General Internal Medicine 03/06/24 documented as of this encounter Additional Source Comments The information contained in this document represents components of the legal health record. It is not the complete legal health record.[facility]
--- OUTSIDE RECORDS SUMMARY | 2025-06-13 17:43 | XMS_ITS | Encounter Summary ---
Author Organization [facility] Address [address] [place] [address] Phone Care Team Providers Care Contact Assembler Name Role Phone Peyman Dunn MD Primary Care Provider [phone] Encounter Details Date Type Department Care Team (Late st Contact Info) Description 04/12/2025 Procedure Pass [facility] MOE 4 ENDO DEPT [address] [facility], 4th [place] [address] Social History Tobacco Use Types Packs/Day Years [...] 11:30 AM EDT Telemedicine - audio only [facility] Trans[facility] Clinic [address] [place] [address] Merari Ruiz MD [address] [place] [address] Ravi@[facility] Deb Samayoa [address] [place] [address] [email or web address] 06/14/2025 12:00 PM EDT Nutrition [facility] Trans[facility] Clinic [address] [place] [address] Merari Ruiz MD [address] [place] [address] Ravi@[facility] Marilou Macias LDN [address] [place] [phone] [email or web address] jaimie 08/14/2025 9:00 AM EST Telemedicine [facility] [address] [place] [address] Merari Ruiz MD [address] [place] [address] Ravi@[email or web address] 08/20/2025 12:30 PM EST Office Visit [facility] 243 [facility] 3rd [place] [address] Oscar Goyal MD, PhD [address] [place] [address] Morena@ [facility]. U documented as of this encounter Visit Diagnoses Not on filedocumented in this encounter Care Teams Contact Assembler Relationship Specialty Start Date End Date Po, Peyman Giles MD 2 [facility] [address] [place] [address] PCP - General Internal Medicine 03/06/24 documented as of this encounter Additional Source Comments The information contained in this document represents components of the legal health record. It is not the complete legal health record.[facility]
--- OUTSIDE RECORDS SUMMARY | 2025-06-13 17:43 | XMS_ITS | Encounter Summary ---
Author Organization [facility] Address [address] [place] [address] Phone Care Team Providers Care Grip Wrapper Name Role Phone Peyman Dunn MD Primary Care Provider [phone] Encounter Details Date Type Department Care Team (Late st Contact Info) Description 06/05/2025 Documentation [facility] [place] Transplant Clinic [address] [place] [address] Codi Perez [facility] [address] [place] [address] [email or web address] Social History Tobacco Use Types Packs/Day Years [...] as of this encounter Progress Notes * Codi Perez, [facility] - 06/05/2025 10:01 PM EDT Multidisciplinary Selection Committee - Transplant Pharmacist Review Transplant Pharmacy Selection Note Kailash Ndiaye is a 49 y.o. male who is currently undergoing liver transplant evaluation. The patient's blood type is O. In preparation for presentation at the multidisciplinary selection committee, the patient's medicalrecord was reviewed with a focus on the current medication list, fill history if available and notes regarding medication management and adherence. Past Medical History: Diagnosis Date Anemia 2009 Anxiety Continuous positive airway pressure dependence 2014 Deep vein thrombosis (DVT) 2011 LLE Depressive disorder DVT of lower extremity, bilateral 2011 Gastroesophageal reflux disease 2000 History of transfusion Hyperlipidemia 2015 Hypertensive disorder 2009 Jaundice 2024 Jaundice Liver disease Sleep apnea 2014 CPAP, not using Snoring 1976 TIA (transient ischemic attack) Visual impairment Allergies Allergen Reactions Infliximab Anaphylaxis, Other (See Comments) and Unknown Imuran [Azathioprine] MELD 3.0: 15 at 05/30/2025 10:36 AM MELD-Na: 14 at 05/30/2025 10:36 AM Calculated from: Serum Creatinine: 0.89 mg/dL (Using min of 1 mg/dL) at 05/30/2025 10:36 AM Serum Sodium: 137 mmol/L at 05/30/2025 10:36 AM Total Bilirubin: 8 mg/dL at 05/30/2025 10:36 AM Serum Albumin: 3.5 g/dL at 05/30/2025 10:36 AM INR(ratio): 1 at 05/30/2025 10:36 AM Age at listing (hypothetical): 49 years Sex: Male at 05/30/2025 10:36 AM Current Outpatient Medications Ordered in Epic Medication Sig acetaminophen (TYLENOL) 325 mg tablet Take 325 mg by mouth every 4 (four) hours as needed. ascorbic Acid (VITAMIN C) 500 mg CpER Take 500 mg by mouth daily. atorvastatin (LIPITOR) 20 MG tablet Take 20 mg by mouth nightly at bedtime. calcium citrate (CALCITRATE) 950 mg (200 mg elemental) tablet Take 1 tablet by mouth daily. cholecalciferol (VITAMIN D3) 2,000 unit capsule 1 capsule. cyanocobalamin, vitamin B-12, 1000 MCG tablet Take 1,000 mcg by mouth. diphenhydrAMINE (BENADRYL) 25 mg capsule Take 50 mg by mouth every 6 (six) hours as needed. ELIQUIS 5 mg tablet Take 5 mg by mouth 2 (two) times a day. fenofibrate (TRICOR) 145 MG tablet Take 1 tablet (145 mg total) by mouth daily. (Patient not taking: Reported on 05/10/2025) ferrous sulfate 325 mg (65 mg [place] iron) tablet daily. folic acid (FOLVITE) 1 MG tablet 1 tablet Orally Once a day omeprazole (PRILOSEC) 20 MG capsule Take 20 mg by mouth daily. propranoloL (INDERAL) 10 MG immediate release tablet Take 30 mg by mouth 2 (two) times a day. sertraline (ZOLOFT) 100 MG tablet 1 tablet Orally Once a day tiZANidine (ZANAFLEX) 4 MG capsule Take 4 mg by mouth nightly at bedtime as needed. ursodioL (ACTIGALL) 500 MG tablet Take 500 mg by mouth 2 (two) times a day. Take 1 tablet in the morning and 2 tablets in the evening zolpidem (AMBIEN) 5 MG tablet Take 12.5 mg by mouth nightly at bedtime as needed. 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 Patient may need to be evaluated for anticoagulation therapy management if listed active for transplant (eg: transition to warfarin if appropriate) Takes edibles for anxiety, will need to discuss use of THC over CBD due to potential for interactions of CBD with immunosuppression. Additionally, will discuss risk of fungal infections with inhaled marijuana in the setting of immunosuppression. HLD: Per OSH note, patient elevated LFTs likely secondary to DILI from fenofibrate use, would avoidresuming medication pre-transplant and manage HLD with other agents. 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 May need lose monitoring of GI side effects of common IS meds like Mycophenolate, may benefit from Myfortic to decrease exhacerbating symptoms Codi Huynh, PharmD, BCTXP, BCPS Clinical Pharmacist - Solid Organ Transplant documented in this encounter Plan of Treatment Upcoming Encounters Date Type Department Care Team (Latest Contact Info) Description 06/14/2025 11:30 AM EDT Telemedicine - audio only [facility] Transplant Clinic [address] [place] [id number] Merari Ruiz MD [address] [place] [address] [place] [address] [email or web address] Deb Samayoa [address] [place] [address] [email or web address] 06/14/2025 12:00 PM EDT Nutrition [facility] [place] Trans[facility] Clinic [address] [place] [address] Merair Ruiz MD [address] [facility] [place] [address] [email or web address] Macias LDN [address] [place] [id number] [email or web address] 08/14/2025 9:00 AM EST Telemedicine [facility] [address] [facility], [address] [place] [address] Merari Ruiz MD [address] [address] [email or web address] 08/20/2025 12:30 PM EST Office Visit [facility] [address] [address] Oscar Goyal MD, PhD [address] [place] [address] [email or web address] documented as of this encounter Visit Diagnoses Not on filedocumented in this encounter Care Teams Grip Wrapper Relationship Specialty Start Date End Date Peyman Dunn MD [address] [place] [address] [place] [phone] PCP - General Internal Medicine 03/06/24 documented as of this encounter Additional Source Comments The information contained in this document represents components of the legal health record. It is not the complete legal health record.[facility]
--- OUTSIDE RECORDS SUMMARY | 2025-06-13 17:43 | XMS_ITS | Clinical Summary ---
Author Organization [facility] Address [address] [place] [id number] Phone Care Team Providers Care Director Occupational Name Role Phone Peyman Dunn MD Primary Care Provider [phone] Allergies Active Allergy Reactions Criticality Noted Date [...] Active ferrous sulfate 325 mg (65 mg salt river iron) tablet daily. Active folic acid (FOLVITE) [...] Encounters Date Type Department Care Team Description 06/13/20 Committee Review [facility] [address] [address] Mya Kimbrough, VIDAL 06/05/20 Documentation [facility] [address] [address] Codi Perez RPH 05/30/20 2:00 PM EDT Social Work [facility] Social Service Department [address] [place] [address] Merari Ruiz MD Pierre, Brianna, ANTENNA DESIGN ENGINEER 05/30/20 1:30 PM EDT Office Visit [facility] [address] [address] Veronica Roe MD 05/30/20 10:30 AM EDT Nurse Only [facility] [address] [address] Merari Ruiz MD Chirgwin, Tina Marie, RN Need for hepatitis B screening test; Screening for human immunodeficiency virus; PSC (primary sclerosing cholangitis); Pre-transplant evaluation for liver transplant; Malnutrition; Malnutrition screen; Nutritional deficiency disorder; Sequelae of unspecified nutritional deficiency; Hepatic cirrhosis, unspecified hepatic cirrhosis type, unspecified whether ascites present; Liver transplant status 05/24/20 Documentation [facility] [address] [address] Mya Kimbrough, VIDAL 05/15/20 10:15 AM EDT Anesthesia Event [facility] 4 ENDO DEPT 55 [facility], 4th [place] [address] Felix Major MD, PhD Sharon Guerin RN 05/15/20 10:00 AM EDT - 05/15/20 11:00 AM EDT Surgery [facility] ENDO DEPT [address] [facility], [address] [place] [address] Geovani Sun MD ENDOSCOPIC RETROGRADE CHOLANGIOPANCREATOGRAPHY 05/15/20 9:40 AM EDT - 05/15/20 12:52 PM EDT Hospital Encounter [facility] 4 ENDO DEPT [address] [facility], [address] [place] [address] Geovani Sun MD Discharge Disposition: Home or Self Care 05/15/20 9:30 AM EDT - 05/15/20 9:39 AM EDT Hospital Encounter [facility] GI Endoscopy, [place] [address] [facility], [address] [place] [address] Geovani Sun MD Discharge Disposition: Home or Self Care 05/15/20 Orders Only [facility] [address] [facility], 5th [place] [address] Faustino Dozier MD PSC (primary sclerosing cholangitis) (Primary Dx) 08/19/20 25 Procedure Pass [facility] 4 ENDO DEPT 55 [facility], [address] [place] [address] 05/10/20 11:00 AM EDT Pre-Admission Testing [facility] Pre-Procedure Evaluation Department Please [place] [phone] Geovani Sun MD 05/10/20 25 Telephone [facility] [address] [address] Lakeshia Wright 05/08/20 25 Telephone [facility] [address] [address] Faustino Dozier MD 05/03/20 25 Telephone [facility] [address] [address] Kamini Wayne Appointment 05/02/20 25 Telephone [facility] [address] [place] [address] Margie Multani RN 05/02/20 25 Ancillary Orders [facility] [address] [place] [address] Merari Ruiz MD 05/01/20 25 Ancillary Orders [facility] [address] [place] [address] Merari Ruiz MD 05/01/20 25 Ancillary Orders [facility] [address] [place] [address] Merari Ruiz MD 04/30/20 25 Telephone [facility] [address] [place] [address] Faustino Dozier MD 04/27/20 9:00 AM EDT Telemedicine [facility] [address] [place] [address] Merari Ruiz MD PSC (primary sclerosing cholangitis) (Primary Dx); Abnormal LFTs; Total bilirubin, elevated 04/25/20 25 Orders Only [facility] [address] [place] [address] Faustino Dozier MD Abnormal LFTs (Primary Dx) 04/20/20 - 04/20/20 11:59 PM EDT Hospital Encounter [facility] 55 [place] [address] Merari Ruiz MD Discharge Disposition: Home or Self Care 04/12/20 1:15 PM EDT - 04/12/20 11:59 PM EDT Hospital Encounter [facility] GI Endoscopy, Fernando [address] [facility], [address] [place] [address] Van Owens MD, MPH Discharge Disposition: Home or Self Care 04/12/20 1:15 PM EDT - 04/12/20 2:15 PM EDT Surgery [facility] 4 ENDO DEPT [address] [address] Van Owens MD, MPH ENDOSCOPIC RETROGRADE CHOLANGIOPANCREATOGRAPHY 04/12/20 12:55 PM EDT Anesthesia Event [facility] 4 ENDO DEPT [address] [address] Alexis Escobar MD Famolare, Cynthia, RN 04/12/20 11:54 AM EDT - 04/12/20 4:02 PM EDT Hospital Encounter [facility] 4 ENDO DEPT [address] [address] Van Owens MD, MPH Discharge Disposition: Home or Self Care 04/12/20 Procedure Pass [facility] 4 ENDO DEPT 55 [facility], [address] [place] [address] 04/06/20 9:00 AM EDT Telemedicine [facility] [address] [facility], [address] [place] [address] Merari Ruiz MD Abnormal LFTs (Primary Dx); PSC (primary sclerosing cholangitis); Abnormal liver diagnostic imaging 04/06/20 Orders Only [facility] 55 [facility], [address] [place] [address] Margie Multani, VIDAL Abnormal LFTs (Primary Dx); PSC (primary sclerosing cholangitis) 04/05/20 9:15 AM EDT Pre-Admission Testing [facility] Pre-Procedure Evaluation Department [place] [phone] Unknown, Isiah, 04/05/20 25 Telephone [facility] [address] [place] [address], [address] [place] [address] Margie Multani, VIDAL 04/05/20 25 Telephone [facility] [address] [address] Margie Multani, VIDAL 03/26/20 25 Telephone [facility] [address], [address] [place] [address] Margie Multani, VIDAL 03/26/20 Transcribe Orders [facility] [address] [address] Endoscopist, Next Available Total bilirubin, elevated (Primary Dx) 03/26/20 25 Telephone [facility] [address] [place] [address], [address] [place] [address] Merari Ruiz MD from Last 3 Months Family History Medical History Relation Comments Arthritis Unspecified 1 arthritis; M Cataracts Unspecified 1 cataract; M Diabetes Unspecified 1 diabetes mellitu s; MGM Glaucoma Unspecified 1 glaucoma; ? MGM Hypertension Unspecified 1 hypertension; MG M Uncoded Family History Unspecified 1 cancer; m aternal aunt ? type Uncoded Family History Unspecified 2 cardiac; MGM s/p VT angina Uncoded Family History Unspecified 3 cva; [...] Sign Reading Time Taken Comments Blood Pressure 110/67 05/30/2025 10:34 AM EDT Pulse 56 05/30/2025 10:34 AM EDT Temperature 36.2 C (97.1 F) 05/30/2025 10:34 AM EDT Respiratory Rate 20 05/15/2025 12:41 PM EDT Oxygen Saturation 99% 05/30/2025 10:34 AM EDT Inhaled Oxygen Concentration - - Weight 75.8 kg (167 lb) 05/30/2025 10:34 AM EDT Height 172.7 cm (5' 8 ) 05/30/2025 10:34 AM EDT Body Mass Index 25.39 05/30/2025 10:34 AM EDT Plan of Treatment Upcoming Encounters Date Type Department Care Team (Latest Contact Info) Description 06/14/2025 11:30 AM EDT Telemedicine - audio only [facility] [address] [address] Merari Ruiz MD 55 [facility]-5th [place] [address] [email or web address] Deb Samayoa [address] [place] [address] [email or web address] 06/14/2025 12:00 PM EDT Nutrition [facility] [address] [address] Merari Ruiz MD [address] [place] [address] [email or web address] Marilou Macias LDN [address] [place] [id number] [email or web address] 08/14/2025 9:00 AM EST Telemedicine [facility] [address] [address] Merari Ruiz MD [address] [place] [id number] [email or web address] 08/20/2025 12:30 PM EST Office Visit [facility] [address] [address] Oscar Goyal MD, PhD [address] [place] [address] [email or web address] Health Maintenance Due Date Last Done Comments DEPRESSION SCREENING 1989 PNEUMOCOCCAL VACCINES (0-49 years) (2 of 2 - PCV) 11/23/2018 11/23/2017 COLOGUARD 2022 COLONOSCOPY 2022 COLORECTAL CANCER SCREENING 2022 FIT TEST 2022 FOBT 2022 07/31/2020 SIGMOIDOSCOPY 2022 VIRTUAL COLONOSCOPY 2022 INFLUENZA VACCINE (#1) 2025 , 07/20/2023, 07/21/2022, Additional history exists CREATININE LEVEL 05/30/2026 05/30/2025, , 04/26/2025, Additional history exists SCREENING FOR DIABETES 05/30/2028 05/30/2025 LIPID PANEL 05/30/2030 05/30/2025 Adult Td,Tdap Booster 04/04/2034 04/04/2024, 016 COVID-19 VACCINE Completed 11/20/2024, 05/2022, 07/11/2021 SMOKING STATUS SCREENING (Once After 26 Yrs) Completed 05/24/2025 HEPATITIS C SCREENING Completed 05/30/2025, 022 HIV ONE-TIME SCREENING (18-65 YEARS) Completed 05/30/2025 HIB VACCINES Aged Out No longer eligi ble based on patient's age to complete this topic MENINGOCOCCAL VACCINES (ACWY) Aged Out No longer eligible based on patient's age to complete this topic MENINGOCOCCAL VACCINES (B) Aged Out N o longer eligible based on patient's age to complete this topic Medical Devices Implanted Type Area Approver Device Identifier Shelf Expiration Date Model / Serial / Lot Ivc Filter Procedures Procedure Name Priority Date/Time Associated Diagnosis Comments TYPE AND SCREEN (ABO,RH,ANTIBODY SCREEN) Routine 05/30/2025 10:36 AM EDT Need for hepatitis B screening test Screening for human immunodeficiency virus PSC (primary sclerosing cholangitis) Pre-transplant evaluation for liver transplant CBC AND DIFFERENTIAL Routine 05/30/2025 10:36 AM EDT Need for hepatitis B screening test Screening for human immunodeficiency virus PSC (primary sclerosing cholangitis) Pre-transplant evaluation for liver transplant COMPREHENSIVE METABOLIC PANEL Routine 05/30/2025 10:36 AM EDT Need for hepatitis B screening test Screening for human immunodeficiency virus PSC (primary sclerosing cholangitis) Pre-transplant evaluation for liver transplant HEPATITIS A ANTIBODY, IGG Routine 2024 10:36 AM EDT Need for hepatitis B screening test Screening for human immunodeficiency virus PSC (primary sclerosing cholangitis) Pre-transplant evaluation for liver transplant HEPATITIS B SURFACE ANTIBODY Routine 11/2024 10:36 AM EDT Need for hepatitis B screening test Screening for human immunodeficiency virus PSC (primary sclerosing cholangitis) Pre-transplant evaluation for liver transplant IRON AND IRON BINDING CAPACITY Routine 05/30/2025 10:36 AM EDT Need for hepatitis B screening test Screening for human immunodeficiency virus PSC (primary sclerosing cholangitis) Pre-transplant evaluation for liver transplant FERRITIN Routine 05/30/2025 10:36 AM EDT Need for hepatitis B screening test Screening for human immunodeficiency virus PSC (primary sclerosing cholangitis) Pre-transplant evaluation for liver transplant LIPID PANEL Routine 05/30/2025 10:36 AM EDT Need for hepatitis B screening test Screening for human immunodeficiency virus PSC (primary sclerosing cholangitis) Pre-transplant evaluation for liver transplant PT-INR Routine 05/30/2025 10:36 AM EDT Need for hepatitis B screening test Screening for human immunodeficiency virus PSC (primary sclerosing cholangitis) Pre-transplant evaluation for liver transplant SYPHILIS ANTIBODY SCREEN ASSAY Routine 05/30/2025 10:36 AM EDT Need for hepatitis B screening test Screening for human immunodeficiency virus PSC (primary sclerosing cholangitis) Pre-transplant evaluation for liver transplant ETHANOL, BLOOD Routine 05/30/2025 10:36 AM EDT Need for hepatitis B screening test Screening for human immunodeficiency virus PSC (primary sclerosing cholangitis) Pre-transplant evaluation for liver transplant AFP (NON-MATERNAL SPECIMENS) Routine 11/2024 10:36 AM EDT Need for hepatitis B screening test Screening for human immunodeficiency virus PSC (primary sclerosing cholangitis) Pre-transplant evaluation for liver transplant PHOSPHATIDYLETHANOL Routine 05/30/2025 10:36 AM EDT Need for hepatitis B screening test Screening for human immunodeficiency virus PSC (primary sclerosing cholangitis) Pre-transplant evaluation for liver transplant TOXICOLOGY SCREEN, URINE Routine 025 10:36 AM EDT Need for hepatitis B screening test Screening for human immunodeficiency virus PSC (primary sclerosing cholangitis) Pre-transplant evaluation for liver transplant CYSTATIN C Routine 05/30/2025 10:36 AM EDT Need for hepatitis B screening test Screening for human immunodeficiency virus PSC (primary sclerosing cholangitis) Pre-transplant evaluation for liver transplant C-REACTIVE PROTEIN Routine 05/30/2025 10:36 AM EDT Need for hepatitis B screening test Screening for human immunodeficiency virus PSC (primary sclerosing cholangitis) Pre-transplant evaluation for liver transplant Malnutrition Malnutrition screen Nutritional deficiency disorder Sequelae of unspecified nutritional deficiency Hepatic cirrhosis, unspecified hepatic cirrhosis type, unspecified whether ascites present Liver transplant status VITAMIN A Routine 05/30/2025 10:36 AM EDT Need for hepatitis B screening test Screening for human immunodeficiency virus PSC (primary sclerosing cholangitis) Pre-transplant evaluation for liver transplant Malnutrition Malnutrition screen Nutritional deficiency disorder Sequelae of unspecified nutritional deficiency Hepatic cirrhosis, unspecified hepatic cirrhosis type, unspecified whether ascites present Liver transplant status RETINOL BINDING PROTEIN Routine 05/30/20 25 10:36 AM EDT Need for hepatitis B screening test Screening for human immunodeficiency virus PSC (primary sclerosing cholangitis) Pre-transplant evaluation for liver transplant Malnutrition Malnutrition screen Nutritional deficiency disorder Sequelae of unspecified nutritional deficiency Hepatic cirrhosis, unspecified hepatic cirrhosis type, unspecified whether ascites present Liver transplant status VITAMIN E Routine 05/30/2025 10:36 AM EDT Need for hepatitis B screening test Screening for human immunodeficiency virus PSC (primary sclerosing cholangitis) Pre-transplant evaluation for liver transplant Malnutrition Malnutrition screen Nutritional deficiency disorder Sequelae of unspecified nutritional deficiency Hepatic cirrhosis, unspecified hepatic cirrhosis type, unspecified whether ascites present Liver transplant status 25-OH VITAMIN D Routine 05/30/2025 10:36 AM EDT Need for hepatitis B screening test Screening for human immunodeficiency virus PSC (primary sclerosing cholangitis) Pre-transplant evaluation for liver transplant Malnutrition Malnutrition screen Nutritional deficiency disorder Sequelae of unspecified nutritional deficiency Hepatic cirrhosis, unspecified hepatic cirrhosis type, unspecified whether ascites present Liver transplant status COPPER, BLOOD Routine 05/30/2025 10:36 AM EDT Need for hepatitis B screening test Screening for human immunodeficiency virus PSC (primary sclerosing cholangitis) Pre-transplant evaluation for liver transplant Malnutrition Malnutrition screen Nutritional deficiency disorder Sequelae of unspecified nutritional deficiency Hepatic cirrhosis, unspecified hepatic cirrhosis type, unspecified whether ascites present Liver transplant status CERULOPLASMIN Routine 05/30/2025 10:36 AM EDT Need for hepatitis B screening test Screening for human immunodeficiency virus PSC (primary sclerosing cholangitis) Pre-transplant evaluation for liver transplant Malnutrition Malnutrition screen Nutritional deficiency disorder Sequelae of unspecified nutritional deficiency Hepatic cirrhosis, unspecified hepatic cirrhosis type, unspecified whether ascites present Liver transplant status ZINC Routine 05/30/2025 10:36 AM EDT Need for hepatitis B screening test Screening for human immunodeficiency virus PSC (primary sclerosing cholangitis) Pre-transplant evaluation for liver transplant Malnutrition Malnutrition screen Nutritional deficiency disorder Sequelae of unspecified nutritional deficiency Hepatic cirrhosis, unspecified hepatic cirrhosis type, unspecified whether ascites present Liver transplant status SELENIUM Routine 05/30/2025 10:36 AM EDT Need for hepatitis B screening test Screening for human immunodeficiency virus PSC (primary sclerosing cholangitis) Pre-transplant evaluation for liver transplant Malnutrition Malnutrition screen Nutritional deficiency disorder Sequelae of unspecified nutritional deficiency Hepatic cirrhosis, unspecified hepatic cirrhosis type, unspecified whether ascites present Liver transplant status VITAMIN B1 (THIAMINE) Routine 05/30/2025 10:36 AM EDT Need for hepatitis B screening test Screening for human immunodeficiency virus PSC (primary sclerosing cholangitis) Pre-transplant evaluation for liver transplant Malnutrition Malnutrition screen Nutritional deficiency disorder Sequelae of unspecified nutritional deficiency Hepatic cirrhosis, unspecified hepatic cirrhosis type, unspecified whether ascites present Liver transplant status FOLATE Routine 05/30/2025 10:36 AM EDT Need for hepatitis B screening test Screening for human immunodeficiency virus PSC (primary sclerosing cholangitis) Pre-transplant evaluation for liver transplant Malnutrition Malnutrition screen Nutritional deficiency disorder Sequelae of unspecified nutritional deficiency Hepatic cirrhosis, unspecified hepatic cirrhosis type, unspecified whether ascites present Liver transplant status VITAMIN B6 Routine 05/30/2025 10:36 AM EDT Need for hepatitis B screening test Screening for human immunodeficiency virus PSC (primary sclerosing cholangitis) Pre-transplant evaluation for liver transplant Malnutrition Malnutrition screen Nutritional deficiency disorder Sequelae of unspecified nutritional deficiency Hepatic cirrhosis, unspecified hepatic cirrhosis type, unspecified whether ascites present Liver transplant status NIACIN Routine 05/30/2025 10:36 AM EDT Need for hepatitis B screening test Screening for human immunodeficiency virus PSC (primary sclerosing cholangitis) Pre-transplant evaluation for liver transplant Malnutrition Malnutrition screen Nutritional deficiency disorder Sequelae of unspecified nutritional deficiency Hepatic cirrhosis, unspecified hepatic cirrhosis type, unspecified whether ascites present Liver transplant status VITAMIN B12 Routine 05/30/2025 10:36 AM EDT Need for hepatitis B screening test Screening for human immunodeficiency virus PSC (primary sclerosing cholangitis) Pre-transplant evaluation for liver transplant Malnutrition Malnutrition screen Nutritional deficiency disorder Sequelae of unspecified nutritional deficiency Hepatic cirrhosis, unspecified hepatic cirrhosis type, unspecified whether ascites present Liver transplant status VITAMIN C Routine 05/30/2025 10:36 AM EDT Need for hepatitis B screening test Screening for human immunodeficiency virus PSC (primary sclerosing cholangitis) Pre-transplant evaluation for liver transplant Malnutrition Malnutrition screen Nutritional deficiency disorder Sequelae of unspecified nutritional deficiency Hepatic cirrhosis, unspecified hepatic cirrhosis type, unspecified whether ascites present Liver transplant status METHYLMALONIC ACID, SERUM Routine 2024 10:36 AM EDT Need for hepatitis B screening test Screening for human immunodeficiency virus PSC (primary sclerosing cholangitis) Pre-transplant evaluation for liver transplant Malnutrition Malnutrition screen Nutritional deficiency disorder Sequelae of unspecified nutritional deficiency Hepatic cirrhosis, unspecified hepatic cirrhosis type, unspecified whether ascites present Liver transplant status HOMOCYSTEINE Routine 05/30/2025 10:36 AM EDT Need for hepatitis B screening test Screening for human immunodeficiency virus PSC (primary sclerosing cholangitis) Pre-transplant evaluation for liver transplant Malnutrition Malnutrition screen Nutritional deficiency disorder Sequelae of unspecified nutritional deficiency Hepatic cirrhosis, unspecified hepatic cirrhosis type, unspecified whether ascites present Liver transplant status CYTOMEGALOVIRUS (CMV) ANTIBODY, IGG Routine 05/30/2025 10:36 AM EDT Need for hepatitis B screening test Screening for human immunodeficiency virus PSC (primary sclerosing cholangitis) Pre-transplant evaluation for liver transplant Porsha-Perea virus (EBV) antibody, IgG Routine 05/30/2025 10:36 AM EDT Need for hepatitis B screening test Screening for human immunodeficiency virus PSC (primary sclerosing cholangitis) Pre-transplant evaluation for liver transplant HEPATITIS B CORE ANTIBODY, TOTAL Routine 05/30/2025 10:36 AM EDT Need for hepatitis B screening test Screening for human immunodeficiency virus PSC (primary sclerosing cholangitis) Pre-transplant evaluation for liver transplant HEPATITIS B SURFACE ANTIGEN Routine 11/2024 10:36 AM EDT Need for hepatitis B screening test Screening for human immunodeficiency virus PSC (primary sclerosing cholangitis) Pre-transplant evaluation for liver transplant HEPATITIS C ANTIBODY, QUALITATIVE Routine 05/30/2025 10:36 AM EDT Need for hepatitis B screening test Screening for human immunodeficiency virus PSC (primary sclerosing cholangitis) Pre-transplant evaluation for liver transplant HIV-1/2 ANTIGEN/ANTIBODY Routine 025 10:36 AM EDT Need for hepatitis B screening test Screening for human immunodeficiency virus PSC (primary sclerosing cholangitis) Pre-transplant evaluation for liver transplant MEASLES ANTIBODY, IGG Routine 05/30/2025 10:36 AM EDT Need for hepatitis B screening test Screening for human immunodeficiency virus PSC (primary sclerosing cholangitis) Pre-transplant evaluation for liver transplant MUMPS ANTIBODY, IGG Routine 05/30/2025 10:36 AM EDT Need for hepatitis B screening test Screening for human immunodeficiency virus PSC (primary sclerosing cholangitis) Pre-transplant evaluation for liver transplant RUBELLA ANTIBODY, IGG Routine 05/30/2025 10:36 AM EDT Need for hepatitis B screening test Screening for human immunodeficiency virus PSC (primary sclerosing cholangitis) Pre-transplant evaluation for liver transplant VARICELLA-ZOSTER (VZV) ANTIBODY, IGG Routine 05/30/2025 10:36 AM EDT Need for hepatitis B screening test Screening for human immunodeficiency virus PSC (primary sclerosing cholangitis) Pre-transplant evaluation for liver transplant T SPOT TB TEST Routine 05/30/2025 10:36 AM EDT Need for hepatitis B screening test Screening for human immunodeficiency virus PSC (primary sclerosing cholangitis) Pre-transplant evaluation for liver transplant OUTSIDE LAB 05/24/2025 EXTERNALLY RESULTED CHEMISTRY Routine 05/23/2025 4:05 PM EDT OUTSIDE LAB 05/17/2025 OUTSIDE LAB 05/16/2025 CHEMISTRY COMMENT Routine 05/15/2025 5:26 PM EDT BILIARY TRACT MALIGNANCY Routine 025 5:26 PM EDT CHEMISTRY COMMENT Routine 05/15/2025 5:23 PM EDT BILIARY TRACT MALIGNANCY Routine 025 5:23 PM EDT CHEMISTRY COMMENT Routine 05/15/2025 5:19 PM EDT BILIARY TRACT MALIGNANCY Routine 025 5:19 PM EDT NON-TRIMMER MEAT CYTOLOGY, NON CSF, NON URINE Routine 05/15/2025 2:40 PM EDT FL ENDOSCOPIC RETROGRADE BILIARY ONLY Routine 05/15/2025 11:18 AM EDT AIRWAY PLACEMENT Routine 05/15/2025 10:29 AM EDT ENDOSCOPIC RETROGRADE CHOLANGIOPANCREATOGRAPHY 05/15/2025 10:19 AM EDT PSC (primary sclerosing cholangitis) ENDOSCOPY PROCEDURE 05/15/2025 9:07 AM EDT MOLECULAR DIAGNOSTICS Routine 05/15/2025 12:00 AM EDT MOLECULAR DIAGNOSTICS Routine 05/15/2025 12:00 AM EDT MOLECULAR DIAGNOSTICS Routine 05/15/2025 12:00 AM EDT EXTERNALLY RESULTED HEMATOLOGY Routine 05/14/2025 9:12 AM EDT PT-INR Routine 05/14/2025 9:12 AM EDT EXTERNALLY RESULTED CHEMISTRY Routine 05/14/2025 9:12 AM EDT OUTSIDE LAB 05/07/2025 OUTSIDE LAB 05/07/2025 OUTSIDE LAB 05/07/2025 EXTERNALLY RESULTED CHEMISTRY Routine 05/03/2025 12:08 PM EDT OUTSIDE IMAGING 05/01/2025 OUTSIDE IMAGING 05/01/2025 OUTSIDE LAB 04/27/2025 OUTSIDE LAB 04/27/2025 OUTSIDE IMAGING 04/27/2025 EXTERNALLY RESULTED CHEMISTRY Routine 04/26/2025 12:57 PM EDT PT-INR Routine 04/26/2025 12:57 [...] PREP via PG - AP on 03/26 NON-TRIMMER MEAT CYTOLOGY, NON CSF, NON URINE Routine 04/12/2025 8:20 AM EDT MOLECULAR DIAGNOSTICS Routine 04/12/2025 12:00 AM EDT from Last 3 Months Results * Phosphatidylethanol (05/30/2025 10:36 AM EDT) PEth 16:0/18:1 (POPEth) by LC-MS/MS <10 Cutoff: 10 ng/mL [facility] Comment: (NOTE) Phosphatidylethanol (PEth) homologues result interpretation PEth 16:0/18:1 (POPEth) Less than 10 ng/mL: Not detected 10 - 19 ng/mL: Abstinence or light alcohol consumption (<2 drinks per day for several days a week) 20 - 200 ng/mL: Moderate alcohol consumption (up to 4 drinks per day for several days a week) Greater than 200 ng/mL: Heavy alcohol consumption or chronic alcohol use (at least 4 drinks per day several days a week) (Reference: Mary Lr and Manny Wall 2018 J. Forensic Sci) PEth 16:0/18:2 (PLPEth) by LC-MS/MS <10 Cutoff: 10 ng/mL [facility] Comment: (NOTE) PEth 16:0/18:2 (PLPEth) Reference ranges are not well established PEth Interpretation Negative. [facility] Comment: (NOTE) ADDITIONAL INFORMATION This report is intended for use in clinical monitoring and management of patients. It is not intended for use in employment-related testing. This test was developed and its performance characteristics determined by [facility] in a manner consistent with CLIA requirements. This test has not been cleared or approved by the U.S. Food and Drug Administration. Blood 05/30/2025 10:3 6 AM EDT 05/30/2025 12:53 PM EDT BemDiretoir UTStarcomyarieler PA-C LAB BLOOD ORDERABLES Final Result [facility] [address] [place] [address] * Hepatitis A antibody, IgG (05/30/2025 10:36 AM EDT) HAV IGG AB Positive [facility] Comment: (NOTE) REFERENCE RANGE: Unvaccinated: Negative Vaccinated: Positive A positive result indicates the presence of HAV-specific IgG antibody from either vaccination or prior exposure to hepatitis A virus Blood 05/30/2025 10:3 6 AM EDT 05/30/2025 12:49 PM EDT ReTargeterer PA-C LAB BLOOD ORDERABLES Final Result [address] [address] * Ethanol, blood (05/30/2025 10:36 AM EDT) ETHANOL Negative Negative mg/dL [facility] Blood 05/30/2025 10:3 6 AM EDT 05/30/2025 12:53 PM EDT ReTargeterer PA-C LAB BLOOD ORDERABLES Final Result [address] [address] * Retinol binding protein (05/30/2025 10:36 AM EDT) RETINOL BIND PROTEIN 4.2 1.5 - 6.7 mg/dL [facility] Comment: (NOTE) Test Performed by: [employer] [address] [place] [address] Blood 05/30/2025 10:3 6 AM EDT 05/30/2025 12:49 PM EDT Deborah Cowan [facility] LAB BLOOD ORDERAB LES Final Result DARVIN DEL CASTILLO * (ABNORMAL) Cystatin C (05/30/2025 10:36 AM EDT) Cystatin C 1.38(H) 0.61 - 0.95 mg/L [facility] eGFR (Cystatin C) 53(L) >59 mL/min/1. 73m2 [facility] Comment: Cystatin C-based eGFR may differ substantially from creatinine-based eGFR in patients with abnormal muscle mass or acutely changing renal function. Please interpret together with relevant clinical features. Blood 05/30/2025 10:3 6 AM EDT 05/30/2025 12:53 PM EDT Jodi Donnelly PA-C LAB BLOOD ORDERABLES Final Result Performing Organization Address [facility] Co de Phone Number [address] [address] * Mumps antibody, IgG (05/30/2025 10:36 AM EDT) MUMPS VIRUS AB IGG 76.90 AU/mL Q [employer] [facility]-[address] [place] [address] Comment: (NOTE) AU/mL Interpretation ------- <9.00 Not consistent with immunity 9.00-10.99 Equivocal >10.99 Consistent with immunity The presence of mumps IgG antibody suggests immunization or past or current infection with mumps virus. Blood (Blood) 05/30/2025 10: 36 AM EDT 05/30/2025 12:46 PM EDT Jodi Donnelly PA-C NON CULTURE MICROBIO LOGY Final Result Performing Organization Address City/[facility]/ZIP Co de Phone Number [employer] [address] [address], [facility] * (ABNORMAL) Porsha-Perea virus (EBV) antibody, IgG (05/30/2025 10:36 AM EDT) [facility] EBV VCA, IgG 442.00(H) U/mL [employer] [address] Comment: (NOTE) U/mL Interpretation ---- <18.00 Negative 18.00-21.99 Equivocal >21.99 Positive Blood (Blood) 05/30/2025 10: 36 AM EDT 05/30/2025 12:46 PM EDT Jodi Donnelly PA-C NON CULTURE MICROBIO LOGY Final Result Performing Organization Address [facility]/ZIP Co de Phone Number [employer] [address] [address] * Zinc (05/30/2025 10:36 AM EDT) [facility] Zinc, S 66 60 - 106 mcg/dL [facility] Comment: (NOTE) ADDITIONAL INFORMATION This test was developed and its performance characteristics determined by [facility] in a manner consistent with CLIA requirements. This test has not been cleared or approved by the U.S. Food and Drug Administration. Blood 05/30/2025 10:3 6 AM EDT 05/30/2025 12:49 PM EDT us Deborah Cowan [facility] LAB BLOOD ORDERAB LES Final Result Performing Organization Address City/[facility]/ZIP Co de Phone Number [facility] [address] [place] [address] * Rubella antibody, IgG ([facility] ,[facility] ,[facility] ,[facility] ,[facility] ,[facility] ,[facility] ,[facility]) (05/30/2025 10:36 AM EDT) [facility] RUBELLA AB, IGG 3.66 Index QUES [employer] Comment: (NOTE) Index Interpretation ----- <0.90 Not consistent with immunity 0.90-0.99 Equivocal > or = 1.00 Consistent with immunity The presence of rubella IgG antibody suggests immunization or past or current infection with rubella virus. Blood (Blood) 05/30/2025 10: 36 AM EDT 05/30/2025 12:53 PM EDT Jodi LANG-C NON CULTURE MICROBIO LOGY Final Result Performing Organization Address [facility] de Phone Number [employer] [address] [address] * Varicella-zoster (VZV) antibody, IgG (05/30/2025 10:36 AM EDT) Pathologist [facility] Varicella Ab, IgG 27.20 S/CO [facility] [address] Comment: (NOTE) Signal to Cut-off S/CO Interpretation --------- <1.00 Negative - Antibody not detected > or = 1.00 Positive - Antibody detected A positive result indicates that the patient has antibody to VZV but does not differentiate between an active or past infection. The clinical diagnosis must be interpreted in conjunction with the clinical signs and symptoms of the patient. This assay reliably measures immunity due to previous infection but may not be sensitive enough to detect antibodies induced by vaccination. Thus, a negative result in a vaccinated individual does not necessarily indicate susceptibility to VZV infection. A more sensitive test for vaccination-induced immunity is Varicella Zoster Virus Antibody Immunity Screen, ACIF. Blood (Blood) 05/30/2025 10: 36 AM EDT 05/30/2025 12:46 PM EDT us Jodidenisse Donnelly PA-C NON CULTURE MICROBIO LOGY Final Result Performing Organization Address [facility]/ZIP Co de Phone Number [employer] [facility] [address], [facility] * Copper, blood (05/30/2025 10:36 AM EDT) [facility] Copper, serum 117 73 - 129 mcg/dL [facility] Comment: (NOTE) ADDITIONAL INFORMATION This test was developed and its performance characteristics determined by [facility] in a manner consistent with CLIA requirements. This test has not been cleared or approved by the U.S. Food and Drug Administration. Blood (Blood) 05/30/2025 10: 36 AM EDT 05/30/2025 12:46 PM EDT Deborah Cowan [facility] LAB BLOOD ORDERAB LES Final Result Performing Organization Address [facility] de Phone Number [facility] MED/PATH [address] [place] [address] * (ABNORMAL) Cytomegalovirus (CMV) antibody, IgG (05/30/2025 10:36 AM EDT) [facility] Cytomegalovirus Ab, IgG >10.00(H) U/mL [employer] [address] Comment: (NOTE) U/mL Interpretation ----- <0.60 Negative 0.60-0.69 Equivocal > or = 0.70 Positive A positive result indicates that the patient has antibody to CMV. It does not differentiate between an active or past infection. Blood (Blood) 05/30/2025 10: 36 AM EDT 05/30/2025 12:46 PM EDT us Jodi Donnelly PA-C NON CULTURE MICROBIO LOGY Final Result Performing Organization Address [facility] Co de Phone Number [employer] [facility] [address], [facility] * (ABNORMAL) Comprehensive metabolic panel (05/30/2025 10:36 AM EDT) SODIUM 137 135 - 145 mmol/L [facility] POTASSIUM 3.7 3.4 - 5.0 mmol/L [facility] CHLORIDE 103 98 - 108 mmol/L [facility] CO2 21(L) 23 - 32 mmol/L [facility] BUN 9 8 - 25 mg/dL [facility] CREATININE 0.89 0.60 - 1.30 mg/dL [facility] Comment:Icteric GLUCOSE 76 70 - 110 mg/dL [facility] ALBUMIN 3.5 3.3 - 5.0 g/dL [facility] TOTAL PROTEIN 8.1 6.0 - 8.3 g/dL [facility] CALCIUM 9.5 8.5 - 10.5 mg/dL [facility] ALKALINE PHOSPHATASE 321(H) 45 - 115 U/L [facility] TOTAL BILIRUBIN 8.0(H) 0.0 - 1.0 mg/dL [facility] AST 89(H) 10 - 40 U/L [facility] ALT 80(H) 10 - 55 U/L [facility] GLOBULIN 4.6(H) 1.9 - 4.1 g/dL [facility] EGFR 106 >59 mL/min/1. 73m2 [facility] Comment:Estimated glomerular filtration rate calculated using the CKD-EPI refit equation. ANION GAP 13 3 - 17 mmol/L [facility] Blood 05/30/2025 10:3 6 AM EDT 05/30/2025 12:53 PM EDT Jodi Donnelly PA-C LAB BLOOD ORDERABLES Final Result [facility] [address] [place] [address] * Niacin (05/30/2025 10:36 AM EDT) Nicotinic Acid (Niacin) <5.0 Cutoff:<5 .0 ng/mL [facility] Nicotinamide 15.2 5.0 - 48.0 ng/mL [facility] Nicotinuric Acid <5.0 Cutoff:<5 .0 ng/mL [facility] Comment: (NOTE) ADDITIONAL INFORMATION Testing performed by Liquid Chromatography-Tandem Mass Spectrometry (LC-MS/MS) This test was developed and its performance characteristics determined by [facility] in a manner consistent with CLIA requirements. This test has not been cleared or approved by the U.S. Food and Drug Administration. Blood 05/30/2025 10:3 6 AM EDT 05/30/2025 12:49 PM EDT Deborah Cowan [facility] LAB BLOOD ORDERAB LES Final Result Performing Organization Address [facility] Co de Phone Number [facility] [address] [place] [address] * Measles antibody, IgG (05/30/2025 10:36 AM EDT) Pathologist [facility] Measles Ab titer, IgG >300.00 AU/mL [employer] [facility] [employer]-[address] [place] [address] Comment: (NOTE) AU/mL Interpretation ----- <13.50 Not consistent with immunity 13.50-16.49 Equivocal >16.49 Consistent with immunity The presence of measles IgG suggests immunization or past or current infection with measles virus. For additional information, please refer to http://education.[employer]/faq/LYN658 (This link is being provided for informational/ educational purposes only.) Blood (Blood) 05/30/2025 10: 36 AM EDT 05/30/2025 12:46 PM EDT us Jodi Donnelly PA-C NON CULTURE MICROBIO LOGY Final Result Performing Organization Address [facility] Co de Phone Number [employer] [address], [facility] * T spot TB test (05/30/2025 10:36 AM EDT) Pathologist [facility] T-SPOT.TB Negative Negative [employer] Comment: (NOTE) A negative test result does not exclude the possibility of exposure to or infection with Mycobacterium tuberculosis (M. tuberculosis). Patients with recent exposure to TB infected individuals exhibiting a negative T-SPOT.TB result should be considered for retesting within 6 weeks or if other relevant clinical symptoms indicate. Results from T-SPOT.TB testing must be used in conjunction with each individual's epidemiological history, current medical status, and results of other diagnostic evaluations. The T-SPOT.TB test is qualitative and results are reported as positive, borderline, or negative, given that the test controls perform as expected. In line with the Centers for Disease Control and Prevention's 2010 recommendation to report quantitative measurements alongside the qualitative result, the laboratory provides spot counts for informational purposes only. The T-SPOT.TB test should not be interpreted as a quantitative test. Panel A Spot Count Corrected For Neg Control 2 [employer] Panel B Spot Count Corrected For Neg Control 3 [employer] Negative Control Passed QUE [facility] Positive Control Passed [facility] Comment: (NOTE) For additional information, please refer to http://education.[employer]/faq/KOH909 (This link is being provided for informational/ educational purposes only.) Blood 05/30/2025 10:3 6 AM EDT 05/30/2025 12:49 PM EDT Jodi Donnelly PA-C LAB BLOOD ORDERABLES Final Result [employer] [address] [place] [address] * HIV-1/2 antigen/antibody (05/30/2025 10:36 AM EDT) [facility] HIV 1/2 AB/AG Non-Reac tive Non-Reac tive [facility] Comment: A Non-Reactive result does not rule out HIV infection, especially in the setting of acute or early infection. If indicated, based on patient's clinical and epidemiologic exposure history, the patient should have HIV RNA testing performed and repeat HIV testing in 4-8 weeks. Antiretroviral drugs taken for treatment or prophylaxis may limit the ability of diagnostic tests to detect HIV infection. Results were obtained using a 4th generation combination assay [HIV-1/2 Ag/Ab] by chemiluminescent microparticle immunoassay (CMIA). The assay detects antibodies to HIV-1/HIV-2 and/or HIV-1 antigen [P24], if present in the patient's blood. Blood 05/30/2025 10:3 6 AM EDT 05/30/2025 12:49 PM EDT SETjanki PA-C LAB BLOOD ORDERABLES Final Result [address] [address] * Hepatitis C antibody, qualitative (05/30/2025 10:36 AM EDT) Pathologist [facility] HCV ANTIBODY Negative Negative [facility] Comment:Antibodies to HCV no t detected. Does not exclude the possibility of exposure to HCV. Blood 05/30/2025 10:3 6 AM EDT 05/30/2025 12:49 PM EDT ReTargeterer PA-C LAB BLOOD ORDERABLES Final Result [address] [address] * Methylmalonic acid, serum (05/30/2025 10:36 AM EDT) METHYLMALONIC ACID 0.16 <=0.40 nmol/mL [facility] DPT OF LAB MED AND PAT+ Comment: (NOTE) ADDITIONAL INFORMATION This test was developed and its performance characteristics determined by [facility] in a manner consistent with CLIA requirements. This test has not been cleared or approved by the U.S. Food and Drug Administration. Blood 05/30/2025 10:3 6 AM EDT 05/30/2025 12:49 PM EDT Deborah Cowan [facility] LAB BLOOD ORDERAB LES Final Result [facility] DPT OF LAB MED AND PAT+ [address] [place] [address] * Iron and iron binding capacity (05/30/2025 10:36 AM EDT) IRON 101 45 - 160 ug/dL [facility] IRON BINDING CAPACITY 301 230 - 404 ug/dL [facility] TRANSFERRIN SATURAT. 34 14 - 50 % [facility] Blood 05/30/2025 10:3 6 AM EDT 05/30/2025 12:53 PM EDT Jodi Donnelly PA-C LAB BLOOD ORDERABLES Final Result Performing Organization Address City/[facility]/ZIP Co de Phone Number [facility] [address] [place] [address] * Ceruloplasmin (05/30/2025 10:36 AM EDT) CERULOPLASMIN 32 20 - 60 mg/dL [facility] Blood 05/30/2025 10:3 6 AM EDT 05/30/2025 12:49 PM EDT [facility] BLOOD ORDERAB LES Final Result Performing Organization Address City/[facility]/ZIP Co de Phone Number [address] [address] * (ABNORMAL) Toxicology screen, urine (05/30/2025 10:36 AM EDT) URINE AMPHETAMINES Negative Negative [facility] URINE BENZODIAZEPINE Positive(A) Negative [facility] URINE COCAINE METAB Negative Negative [facility] URINE OPIATES Negative Negative [facility] Comment:This assay is not se nsitive for detection of oxycodone and oxymorphone. URINE OXYCODONE Negative Negative [facility] Fentanyl, urine Negative Negative [facility] URINE CREATININE 207 mg/dL [facility] Urine (Urine) 05/30/2025 10: 36 AM EDT 05/30/2025 5:17 PM EDT Jodi Donnelly PA-C URINE ORDERABLES Fin al Result Performing Organization Address [facility] Co de Phone Number [facility] [address] [place] [address] * Vitamin A (05/30/2025 10:36 AM EDT) VITAMIN A 42.4 32.5 - 78.0 mcg/dL [facility] Comment: (NOTE) ADDITIONAL INFORMATION This test was developed and its performance characteristics determined by [facility] in a manner consistent with CLIA requirements. This test has not been cleared or approved by the U.S. Food and Drug Administration. Blood 05/30/2025 10:3 6 AM EDT 05/30/2025 12:49 PM EDT Deborah Cowan [employer] LAB BLOOD ORDERAB LES Final Result Performing Organization Address [facility] de Phone Number [facility] MED/PATH [facility] [address] [place] [address] * (ABNORMAL) Selenium (05/30/2025 10:36 AM EDT) SELENIUM, SERUM 100(L) 110 - 165 mcg/L [facility] Comment: (NOTE) ADDITIONAL INFORMATION This test was developed and its performance characteristics determined by [facility] in a manner consistent with CLIA requirements. This test has not been cleared or approved by the U.S. Food and Drug Administration. Blood 05/30/2025 10:3 6 AM EDT 05/30/2025 12:49 PM EDT Deborah Cowan [facility] LAB BLOOD ORDERAB LES Final Result [facility] LAB MED/PATH [address] [place] [address] * AFP (non-maternal specimens) (05/30/2025 10:36 AM EDT) Pathologist [facility] AFP (NON-MATERNAL) 5.9 <7.9 ng/mL [facility] Comment: Note: Reference interval does not apply to newborns where very high levels are expected. Range for newborns is not available. This assay is performed on the Jorge [employer]rach[employer] 8000. Values obtained with different assay methods or kits cannot be used interchangably. The use of AFP as a tumor marker is not recommended in females. Serum levels of AFP, regardless of levels, should not be interpreted as absolute evidence of the presence or absence of disease. AFP is not intended for use as a cancer-screening test. Blood 05/30/2025 10:3 6 AM EDT 05/30/2025 12:53 PM EDT Jodi LANG-Sebastian LAB BLOOD ORDERABLES Final Result Performing Organization Address [facility] Co de Phone Number [address] [address] * Hepatitis B core antibody, total (05/30/2025 10:36 AM EDT) Pathologist [facility] HEP B CORE AB, TOT Negative Negative [facility] Comment:A nonreactive final interpretation indicates that anti-HBc antibodies were not detected in the sample. It is possible that the individual is not infected with HBV. Blood 05/30/2025 10:3 6 AM EDT 05/30/2025 12:49 PM EDT Result [facility] Jodi Gabe UTStarcomjanki PA-C LAB BLOOD ORDERABLES Final Result Performing Organization Address City/[facility]/ZIP Co de Phone Number [address] [address] * Syphilis antibody screen (05/30/2025 10:36 AM EDT) Pathologist [facility] Syphilis Antibody Screen Non-React jeff Non-React jeff [facility] Comment: INTERPRETATION: Negative for syphilis antibodies. NOTE: This specimen was screened for syphilis using a specific immunoassay for the detection of IgG and IgM Treponema pallidum antibodies. This test has replaced the Non-Treponemal RPR as the initial screening antibody test for syphilis at [facility], because it is more sensitive and specific. Blood 05/30/2025 10:3 6 AM EDT 05/30/2025 12:49 PM EDT Jodi Donnelly PA-C LAB BLOOD ORDERABLES Final Result Performing Organization Address [facility]/ZIP Co de Phone Number [address] [address] * Vitamin C (05/30/2025 10:36 AM EDT) Pathologist [facility] VITAMIN C 1.1 0.4 - 2.0 mg/dL [facility] Comment: (NOTE) ADDITIONAL INFORMATION This test was developed and its performance characteristics determined by [facility] in a manner consistent with CLIA requirements. This test has not been cleared or approved by the U.S. Food and Drug Administration. Blood 05/30/2025 10:3 6 AM EDT 05/30/2025 12:39 PM EDT us Deborah Cowan [facility] LAB BLOOD ORDERAB LES Final Result [facility] [address] [place] [address] * 25-OH vitamin D (05/30/2025 10:36 AM EDT) Pathologist [facility] 25 OH VIT D (TOTAL) 38 20 - 80 ng/mL [facility] Blood 05/30/2025 10:3 6 AM EDT 05/30/2025 12:49 PM EDT Deborah Cowan [facility] [facility]OD ORDERAB LES Final Result Performing Organization Address City/[facility]/ZIP Co de Phone Number [address] [address] * Hepatitis B surface antibody (05/30/2025 10:36 AM EDT) HBV SURFACE AB,QUANT <3.31 mIU/mL [facility] Comment:Results less than 12 .00 mIU/mL are not consistent with protective immunity. Results of 12.00 mIU/mL or more indicate protective immunity. HBV SURFACE AB,QUAL Negative [facility] Comment:Patient is considere d not immune to HBV infection. Blood 05/30/2025 10:3 6 AM EDT 05/30/2025 12:49 PM EDT Jodi Donnelly PA-C LAB BLOOD ORDERABLES Final Result Performing Organization Address City/[facility]/ZIP Co de Phone Number [address] [address] * Hepatitis B surface antigen (05/30/2025 10:36 AM EDT) HBV SURFACE ANTIGEN Negative Negative [facility] Blood 05/30/2025 10:3 6 AM EDT 05/30/2025 12:49 PM EDT Jodi LANG-C LAB BLOOD ORDERABLES Final Result [address] [address] * PT-INR (05/30/2025 10:36 AM EDT) Only the most recent of3 resultswithin the time period is included. PT 11.5 10.0 - 13.0 sec [facility] INR 1.0 0.9 - 1.1 [facility] Blood 05/30/2025 10:3 6 AM EDT 05/30/2025 12:53 PM EDT Jodi Donnelly PA-C LAB BLOOD ORDERABLES Final Result [facility] [address] [place] [address] * (ABNORMAL) CBC and differential (05/30/2025 10:36 AM EDT) WBC 8.63 4.00 - 11.00 K/uL [facility] RBC 3.76(L) 4.50 - 5.90 M/uL [facility] HGB 12.3(L) 13.5 - 17.5 g/dL [facility] HCT 38.1(L) 41.0 - 53.0 % [facility] PLT 187 150 - 450 K/uL [facility] MCV 101.3(H) 80.0 - 100.0 fL [facility] MCH 32.7(H) 27.0 - 31.0 pg [facility] MCHC 32.3 32.0 - 36.0 g/dL [facility] RDW 14.1 11.5 - 14.5 % [facility] MPV 12.4(H) 8.4 - 12.0 fL [facility] NRBC 0.00 0.00 /100 WBCs [facility] ABSOLUTE NRBC 0.00 0.00 K/uL [facility] DIFF METHOD Auto [facility] NEUTS 61.8 48.0 - 76.0 % [facility] LYMPHS 23.2 18.0 - 41.0 % [facility] MONOS 6.3 4.0 - 11.0 % [facility] EOS 7.3(H) 0.0 - 5.0 % [facility] BASOS 0.9 0.0 - 1.5 % [facility] % IMMATURE GRANS 0.5 0.0 - 0.9 % [facility] ABSOLUTE NEUTS 5.34 1.92 - 7.60 K/uL [facility] ABSOLUTE LYMPHS 2.00 0.72 - 4.10 K/uL [facility] ABSOLUTE MONOS 0.54 0.16 - 1.10 K/uL [facility] ABSOLUTE EOS 0.63(H) 0.00 - 0.50 K/uL [facility] ABSOLUTE BASOS 0.08 0.00 - 0.15 K/uL [facility] ABS IMMATURE GRANS 0.04 0.00 - 0.09 K/uL [facility] Blood 05/30/2025 10:3 6 AM EDT 05/30/2025 12:53 PM EDT Result [facility] Jodi Donnelly PA-C LAB BLOOD ORDERABLES Final Result Performing Organization Address [facility] Co de Phone Number [address] [address] * Type and Screen (ABO,Rh,Antibody Screen) (05/30/2025 10:36 AM EDT) Expiration Date of Sample 06/02/2025 11:59 PM [facility] ABO O 05/30/2025 2:17 PM EDT [facility] Rh Positive 05/30/2025 2:17 PM EDT [facility] Comment:Additional Specimen for ABORH Needed for RBC Xmtch Resulting Agency [facility] Antibody Screen Negative 05/30/2025 2:22 PM EDT [facility] Blood 05/30/2025 10:3 6 AM EDT 05/30/2025 1:20 PM EDT Result [facility] Jodi Donnelly PA-C BLOOD BANK TEST ORDE RABLES Final Result Performing Organization Address [facility] Co de Phone Number [address] [address] * C-Reactive Protein (05/30/2025 10:36 AM EDT) C REACTIVE PROTEIN 7.7 <8.0 mg/L [facility] Comment:This reference range is for the evaluation of inflammation. Order High Sensitivity CRP for cardiac risk status evaluation. Blood 05/30/2025 10:3 6 AM EDT 05/30/2025 12:53 PM EDT Deborah Cowan [employer] LAB BLOOD ORDERAB LES Final Result Performing Organization Address City/[facility] Co de Phone Number [address] [address] * Vitamin E (05/30/2025 10:36 AM EDT) Pathologist [facility] VIT E, A-TOCOPHEROL 10.7 5.5 - 17.0 mg/L [facility] MED/PATH [facility] [place] Comment: (NOTE) ADDITIONAL INFORMATION This test was developed and its performance characteristics determined by [facility] in a manner consistent with CLIA requirements. This test has not been cleared or approved by the U.S. Food and Drug Administration. Blood 05/30/2025 10:3 6 AM EDT 05/30/2025 12:49 PM EDT Deborah Cowan [facility] LAB BLOOD ORDERAB LES Final Result Performing Organization Address [facility] de Phone Number [facility] MED/PATH [place] [address] * Vitamin B1 (thiamine) (05/30/2025 10:36 AM EDT) Pathologist [facility] VITAMIN B1 134 70 - 180 nmol/L [facility] MED/[facility] [place] Comment: (NOTE) ADDITIONAL INFORMATION This test was developed and its performance characteristics determined by [facility] in a manner consistent with CLIA requirements. This test has not been cleared or approved by the U.S. Food and Drug Administration. Blood 05/30/2025 10:3 6 AM EDT 05/30/2025 12:47 PM EDT Deborah Cowan [facility] LAB BLOOD ORDERAB LES Final Result Performing Organization Address [facility] Co de Phone Number [facility] MED/PATH [place] [address] * (ABNORMAL) Vitamin B6 (05/30/2025 10:36 AM EDT) Pathologist [facility] VITAMIN B6 2(L) 5 - 50 mcg/L [facility] Comment: (NOTE) ADDITIONAL INFORMATION This test was developed and its performance characteristics determined by [facility] in a manner consistent with CLIA requirements. This test has not been cleared or approved by the U.S. Food and Drug Administration. Blood 05/30/2025 10:3 6 AM EDT 05/30/2025 12:53 PM EDT [facility]AB L[facility] Final Result [facility] MED/PATH [address] [place] [address] * Homocysteine (05/30/2025 10:36 AM EDT) Pathologist [facility] HOMOCYSTEINE, TOTAL 7.5 0 - 14.2 umol/L [facility] Blood 05/30/2025 10:3 6 AM EDT 05/30/2025 12:39 PM EDT [facility] BLOOD ORDERAB LES Final Result [address] [address] * Folate (05/30/2025 10:36 AM EDT) Pathologist [facility] FOLIC ACID >20.0 >4.7 ng/mL [facility] Blood 05/30/2025 10:3 6 AM EDT 05/30/2025 12:46 PM EDT [facility] BLOOD ORDERAB LES Final Result Performing Organization Address City/[facility]/ZIP Co de Phone Number [address] [address] * (ABNORMAL) Ferritin (05/30/2025 10:36 AM EDT) FERRITIN 718(H) 20 - 300 ug/L [facility] Blood 05/30/2025 10:3 6 AM EDT 05/30/2025 12:53 PM EDT us Jodi Bernal Scheyarieler PA-C LAB BLOOD ORDERABLES Final Result [address] [address] * Vitamin B12 (05/30/2025 10:36 AM EDT) VITAMIN B12 >2000 >231 pg/mL [facility] Blood 05/30/2025 10:3 6 AM EDT 05/30/2025 12:53 PM EDT us Deborah Cowan [employer] LAB BLOOD ORDERAB LES Final Result Performing Organization Address [facility]/ZIP Co de Phone Number [address] [address] * (ABNORMAL) Lipid panel (05/30/2025 10:36 AM EDT) HDL 31(L) 35 - 100 mg/dL [facility] CHOLESTEROL 231(H) <200 mg/dL [facility] TRIGLYCERIDES 186(H) 40 - 150 mg/dL [facility] LDL 163(H) 50 - 129 mg/dL [facility] CARDIAC RISK RATIO 7.5(H) 0.0 - 5.0 [facility] NON-HDL CHOLESTEROL 200 mg/dL [facility] Comment:Guidelines suggest a non-HDL cholesterol goal 30 mg/dL higher than the patient-specific LDL goal. Blood 05/30/2025 10:3 6 AM EDT 05/30/2025 12:53 PM EDT us Jodirafia Bernal Scheyarieler PA-C LAB BLOOD ORDERABLES Final Result Performing Organization Address City/[facility]/ZIP Co de Phone Number [address] [address] * Outside Lab (05/24/2025) Only the most recent of10 resultswithin the time period is included. us Scanning Interface Provider LAB BLOOD ORDERABLES Final Result * (ABNORMAL) EXTERNALLY RESULTED CHEMISTRY (05/23/2025 4:05 PM EDT) Only the most recent of4 resultswithin the time period is included. Sodium - External Potassium - External Chloride - External CO2 - External BUN - External Creatinine, serum - External BUN/Creatinine - External eGFR - External Glucose - External Calcium - External Phosphorus - External Magnesium - External Albumin - External 3.8 3.5 - 5.0 g/dL Comment:Done at [facility] Bilirubin, total - External 8.9(A) 0.0 - 1.0 mg/dL Comment:Done at [facility] Bilirubin, direct - External Bilirubin (conjugated) - External Bilirubin, indirect - External Protein - External 8.2(A) 6.5 - 8.0 g/dL Comment:Done at [facility] Alkaline Phosphatase - External 324(A) 39 - 117 U/L Comment:Done at [facility] AST - External 100(A) 5 - 37 U/L Comment:Done at [facility] ALT - External 92(A) 0 - 40 U/L Comment:Done at [facility] Amylase - External Lipase (u/L) [...] Isoenzymes - External Cystatin C - External 05/23/2025 4:05 PM EDT us Historical Provider MD LAB BLOOD ORDERABLES Mili vick Result * Biliary tract malignancy (05/15/2025 5:26 PM EDT) Only the most recent of4 resultswithin the time period is included. Pathologist [facility] Pathology Pancreatobiliary FISH SEE BELOW [facility] [employer] Comment: (NOTE) Pancreatobiliary FISH Report Pancreatobiliary FISH Specimen Source Hepatic Duct Brushing, Left Fixative -------- PreservCyt Pancreatobiliary FISH Gross Description Received 20 mL fluid in PreservCyt with brush Pancreatobiliary FISH Interpretation Negative Interpretation: Negative results indicate <5 cells with gains of two or more chromosomes, commonly associated with pancreatobiliary carcinoma, within the cells collected in this specimen. Negative results in the presence of other symptoms/signs of pancreatobiliary carcinoma may suggest the possibility of a false-negative test. In this circumstance, additional clinical studies to exclude pancreatobiliary carcinoma should be pursued, as clinically indicated. [employer] Bladder Cancer Kit probes were used to detect aneuploidy for chromosomes 3, 7, and 17 via fluorescence in situ hybridization (FISH). Results from this test are intended for use in conjunction with, and not in lieu of, current standard diagnostic procedures as an aid for initial diagnosis of pancreatobiliary carcinoma or related sources. This test was developed and its performance characteristics determined by [employer]. It has not been cleared or approved by the US Food and Drug Administration. This test was performed in a CLIA certified laboratory and is intended for clinical purposes. 05/24/25 Reviewed by: Jonny Hurst 05/25/25 Verified By: Rachana Nicole M.D. electronic signature I certify that I personally conducted the evaluation on the above specimen(s) and have rendered the above interpretation(s). [facility], Department of Pathology [facility] [address] [facility], [address] [facility] [address] Pancreatobiliary FISH Comments This test has been scanned by the [employer] automated slide screener and reviewed by the pathologist (CPT 76205). Controls performed as expected. TC:102 ISCN: nuc lynette(CEP3,CEP7,9p21,CEP17)x2 Pancreatobiliary FISH Clinical History Clinical Information: No clinical information provided. Performed By: [employer] [address] [place] [id number] [place]: Sebastian Kaba MD, PhD CLIA Number: [id number] Pancreatobiliary FISH Specimen Source Hepatic Duct Brushing, Left [facility] 05/15/2025 5:26 PM EDT 05/15/2025 5:26 PM EDT Geovani Sun MD LAB BLOOD ORDERABLES Final Res ult [facility] [address] [place] [address] [employer] [address] [place] [address] * Chemistry Comment (05/15/2025 5:26 PM EDT) Only the most recent of4 resultswithin the time period is included. Comments (Chemistry) L. HEPATIC DUCT BRUSH [facility] 05/15/2025 5:26 PM EDT 05/15/2025 5:26 PM EDT us Geovani Sun MD LAB BLOOD ORDERABLES Final Res ult [facility] [address] [place] [address] * Non-Station Repairer Cytology (05/15/2025 2:40 PM EDT) Only the most recent of2 resultswithin the time period is included. 05/15/2025 2:40 PM EDT 05/15/2025 2:40 PM EDT Narrative SEE NARRATIVE - 05/17/2025 10:01 [place] [address] Non Station Repairer Cytology Report Patient Name: GIOVANNA NDIAYE : 1975 (Age: 49) Sex: M Institution: [facility] Location: [facility] Date of Collection: 05/15/2025 Date of Reported: [...] ductal cells. Histiocytes. Electronically Signed Out By: Erlinda Rodriguez [facility](ASCP)MB By his/her signature above, the pathologist listed [...] ThinPrep slide made. One ThinPrep vial to [facility] [facility] for NGS. One ThinPrep vial with brush to [facility] for FISH. B. BILIARY BRUSH, RIGHT ANTERIOR HEPATIC: Received ThinPrep vial with brush labeled GIOVANNA NDIAYE, . One ThinPrep slide made. One ThinPrep vial to [facility] [facility] for NGS. One ThinPrep vial with brush to [facility] for FISH. C. BILIARY BRUSH, LEFT HEPATIC DUCT: Received ThinPrep vial with brush labeled GIOVANNA NDIAYE, . One ThinPrep slide made. One ThinPrep vial to [facility] [facility] for NGS. One ThinPrep vial with brush to [facility] for FISH. Geovani Sun MD CYTOLOGY ORDERABLES Final Resu lt SEE NARRATIVE * FL ENDOSCOPIC RETROGRADE BILIARY ONLY (05/15/2025 11:18 AM EDT) Anatomical Region Laterality Modality Abdomen Radio Fluoroscop y 05/15/2025 1:55 PM EDT Narrative 05/15/2025 1:55 PM EDT Dose (mGy): 014050 Dose Area Product (DAP): 7476.9 Dose Area Product (DAP) Units: uGy.m2 Fluoro time (min): 12.1 Radimetrics Dose Report: CTDIvol: 0 mGy. DLP: 0 mGy-cm. Procedure Note Guide, Dictation - 05/15/2025 Dose (mGy): 286088 Dose Area Product (DAP): 7476.9 Dose Area Product (DAP) Units: uGy.m2 Fluoro time (min): 12.1 Radimetrics Dose Report: CTDIvol: 0 mGy. DLP: 0 mGy-cm. us Geovani Sun MD IMG FL EXAMS Final Result * ANES ETT DOUBLE LUMEN - AIRWAY LDA (05/15/2025 10:29 AM EDT) Only the most recent of2 resultswithin the time period is included. Narrative Carley Oropeza CRNA - 05/15/2025 10:29 AM EDT SandipCarley CRNA 05/15/2025 10:39 AM Airway Placement Procedure Note: Patient was not difficult to intubate. Procedure performed by: fellow/resident/MANAGER HOTEL Anesthesiologist: Felix Major MD, PhD Fellow/Resident/MANAGER HOTEL: Carley Oropeza CRNA Airway procedure initiated at:05/15/2025 [...] observed? no us Felix Major MD, PhD [place] ANESTHESIA Final Res ult * ENDOSCOPY PROCEDURE (05/15/2025 9:07 AM EDT) 05/15/2025 9:07 AM EDT Narrative Transcriptions Geovani Sun MD - 05/15/2025 9:07 AM EDT Gastrointestinal Endoscopy Unit Patient Name: Giovanna Ndiaye Exam Date: 05/15/2025 9:07 AM Date of : 1975 Admit Type: Outpatient Age: 49 Room: [place] [address] Gender: Male Note Status: Finalized Attending MD: [...] patient tolerated the procedure well. Findings: The corner cutter machine operator film was normal. The scope was advanced [...] performed the entire procedure. Geovani Sun MD, [id number] 05/15/2025 11:33:40 AM The attending physician was present throughout the entire procedure. Number of Addenda: 0 Note Initiated On: 05/15/2025 9:07 AM Peyman Dunn MD GI PROCEDURE ORDERABLES Final Result * Molecular Diagnostics (05/15/2025 12:00 AM EDT) Only the most recent of4 resultswithin the time period is included. 05/15/2025 05/16/2025 Narrative SEE NARRATIVE - 05/27/2025 9:56 [place] [address] [employer] Director: Steven Dent MD CLIA ID # [id number] Molecular Pathology Report Solid SNAPSHOT Assay Patient Name: GIOVANNA NDIAYE : 1975 (Age: 49) Sex: M Institution: [facility] Location: [facility] Date of Collection: 05/15/2025 Date of Reported: 05/27/2025 21:56 Results To: Geovani Sun MD CLINICAL HISTORY: Gastrointestinal Tract (Biliary Tract) Left Hepatic Duct Brushing SPECIMENS RECEIVED: A: Molecular test for Solid SNAPSHOT Assay GROSS DESCRIPTION: Biliary Caney SLIDE-BLOCK DESCRIPTION: [id number], Part C TEST - [id number] Assay INDICATION FOR TEST: Gastrointestinal Tract (Biliary Tract) Left Hepatic Duct Brushing SPECIMEN(S) TESTED: Biliary C[place] ([facility], [place], [place], [place]) RESULTS: Targeted DNA next generation sequencing (NGS) using Anchored Multiplex PCR (AMP) detected no reportable variants. Copy Number Variants: Not validated for biliary brush specimens. Tumor Mutation [place]: Not validated for biliary brush specimens. INTERPRETATION: No reportable variants were detected. COMMENT: Disease burden could not be determined [...] number detection in genomic DNA using the [employer] platform and Illumina NextSeq next generation sequencing (NGS). Briefly, a board-certified molecular pathologist performed microscopic review of routine H&E-stained sections using validated digital pathology or traditional microscopic workflows. The appropriate region(s) of interest were identified and circled, followed by tumor enrichment via macrodissection prior to nucleic acid extraction. The [employer] VariantPlex Rowe Solid Tumor v2 protocol was used to target the coding sequence of genes listed below. Illumina NextSeq 2 x 150 base paired-end sequencing reads were demutiplexed to generate FASTQ files that were transferred to the [employer] pipeline for read alignment to the [...] FOXL2, FUBP1, GNA11, GNAQ, GNAS, H3F3A, H3F3B, OLSJ3C6V, BJFP8T7S, HNF1A, HRAS, IDH1, IDH2, JAK1, JAK2, JAK3, KDM6A, KDR, KEAP1, KIT, KLF4, KMT2C, KMT2D (MLL2), KRAS, LZTR1, MAP2K1 (MEK1), MAP2K2 (MEK2), MAP3K1, MDM2, MDM4, MED12, MEN1, MET, MLH1, MPL, MRE11A, MSH2, MSH3, MSH6, MTOR, MUC16, MUTYH, MYC, MYCN, NBN, NF1, NF2, NKX2-1, NOTCH1, NOTCH2, NOTCH3, NOTCH4, NPM1, NRAS, NTRK1, NTRK2, NTRK3, PALB2, PBRM1, PDGFRA, PIK3CA, PIK3CB, PIK3R1, PLCB4, PMS2, POLD1, POLE, TOK8E8V, AVL2I0M, PRKD1, PTCH1, PTEN, PTPN11, RAD50, RAD51, RAD51B, [...] NCBI AND EMBL-BIANCA (MARTHA) VERSION: 1.0 REFERENCES: Nguyễn et al. [place] Med 2014;20(12):1479-21. [PMID: [id number]] This test was developed, and its performance characteristics were determined by the [facility]. It has not [...] performed at the [facility], [facility], [address] [place] [address], [place] [address]. Electronically Signed Out By: Miryam Wagner PhD us Geovani Sun MD PATHOLOGY ORDERABLES Final Res ult SEE NARRATIVE * (ABNORMAL) EXTERNALLY RESULTED HEMATOLOGY (05/14/2025 9:12 AM EDT) Only the most recent of2 resultswithin the time period is included. WBC - External 7.3 4.8 - 10.8 x10*3/uL Comment:Done at [facility] RBC - External 4.30(A) 4.60 - 5.80 x10*6/uL Comment:Done at [facility] HCT - External 42.7 42.0 - 52.0 % Comment:Done at [facility] HGB - External 13.8(A) 14.0 - 18.0 g/dL Comment:Done at [facility] Platelets - External 194 180 - 400 x10*3/uL Comment:Done at [facility] MCV - External 99.3(A) 80.0 - 98.0 fL Comment:Done at [facility] RDW - External 15.2 11.0 - 16.0 % Comment:Done at [facility] Eosinophils - External Neutrophils - [...] AM EDT) 05/02/2025 1:36 PM EDT Impressions [facility] - 05/02/2025 3:08 PM EDT No significant change in the multifocal intrahepatic biliary ductal structures with mild upstream intrahepatic ductal dilation. ATTESTATION: I, Dr. Jeremiah Bolivar as teaching physician, have reviewed the images for this case and if necessary edited the report originally created by [employer]. Narrative [facility] - 05/02/2025 3:08 PM EDT MRI ABDOMEN [...] COMPARISON: MRI ABDOMEN OUTSIDE WITH INTERPRETATION OR [id number] FINDINGS: Lower chest: No effusions. Liver: No [...] OUTSIDE IMAGING W/ INTERPR ETATION Final Result [facility] [address] [place] [address] * [place] ENDOSCOPIC RETROGRADE BILIARY ONLY (04/12/2025 2:21 PM EDT) Anatomical Region Laterality Modality Abdomen Radio Fluoroscop y 04/12/2025 9:19 PM EDT Narrative 04/12/2025 9:19 PM EDT Dose (mGy): 14929 Dose Area Product (DAP): 366601 Dose Area Product (DAP) Units: cGy.cm2 Fluoro time (min): 15.6 Radimetrics Dose Report: CTDIvol: 0 mGy. DLP: 0 mGy-cm. Procedure Note Guide, Dictation - 04/12/2025 Dose (mGy): 77042 Dose Area Product (DAP): 572469 Dose Area Product (DAP) Units: cGy.cm2 Fluoro [...] 1975 Admit Type: Outpatient Age: 49 Room: [place] [address] Gender: Male Note Status: Supervisor Ovens Override Attending MD: Van Owens MD, Procedure: ERCP Indications: Jaundice Providers: Van Owens MD Referring MD: Peyman Giles Po (Referring MD), Merari Ruiz MD (Referring MD) Medicines: General Anesthesia, Indomethacin 100 mg VT, zosyn 3.375mg IV x 1 Complications: No [...] patient tolerated the procedure well. Findings: The corner cutter machine operator film was normal. The esophagus was successfully [...] performed the entire procedure. Van Owens MD, [id number] 04/12/2025 2:51:12 PM The attending physician was present throughout the entire procedure. Number of Addenda: 0 Note Initiated On: 04/12/2025 1:26 PM Peyman Dunn MD GI PROCEDURE ORDERABLES Edite d Result - Final from Last 3 Months Insurance CARE MEDICARE REPLACEMENT MEDICARE REPLACEMENT CARE MEDICARE REPLACEMENT CARE MEDICARE REPLACEMENT MEDICARE REPLACEMENT CARE MEDICARE REPLACEMENT Care Teams Director Occupational Relationship Specialty Start Date End Date Peyman Dunn MD [address] [place] [address] PCP - General Internal Medicine 03/06/24 Additional Source Comments The information contained in this document represents components of the legal health record. It is not the complete legal health record.[facility]
--- OUTSIDE RECORDS SUMMARY | 2025-06-13 17:43 | XMS_ITS | Encounter Summary ---
Author Organization [facility] Address [address] [place] [address] Phone Care Team Providers Care Landscaping Supervisor Name Role Phone Peyman Dunn MD Primary Care Provider [phone] Encounter Details Date Type Department Care Team (Late st Contact Info) Description 07/04/2024 Procedure Pass MRI, [facility] - [address], [address] [place] [id number] Social History Tobacco Use Types Packs/Day Years [...] 11:30 AM EDT Telemedicine - audio only [facility] [address] [place] [phone] Merari Ruiz MD [address] [place] [id number] [email or web address] Deb Samayoa [address] [place] [address] [email or web address] 06/14/2025 12:00 PM EDT Nutrition [facility] [address] [place] [phone] Merari Ruiz MD [address] [place] [id number] [email or web address] Marilou Macias, SUDARSHAN [address] [place] [phone] [email or web address] 08/14/2025 9:00 AM EST Telemedicine [facility] [address] [place] [phone] Merari Ruiz MD [address] [place] [id number] [email or web address] 08/20/2025 12:30 PM EST Office Visit [facility] [address] [facility] [address] [place] [address] Oscar Goyal MD, PhD [address] [place] [address] [email or web address]. U documented as of this encounter Visit Diagnoses Not on filedocumented in this encounter Care Teams Landscaping Supervisor Relationship Specialty Start Date End Date Peyman Dunn MD [address] [place] [address] Drive [address] [place] [id number] PCP - General Internal Medicine 03/06/24 documented as of this encounter Additional Source Comments The information contained in this document represents components of the legal health record. It is not the complete legal health record.[facility]
== END 2025-06-13 14:00 | disposition home or self-care (01) ==
LOC: HO.LAB 13:59
PROVIDERS: PCP Internal Medicine; Visit Provider Internal Medicine
DX: K83.01 Primary sclerosing cholangitis (principal); R79.89 Other specified abnormal findings of blood chemistry
CPT/HCPCS: 36415; 80053; 82248; 85025

== ENCOUNTER 2025-06-22 11:15 | Outpatient (AMB) | payer OTHER, SELFPAY ==
--- OUTSIDE RECORDS SUMMARY | 2024-02-08 10:20 | XMS_ITS ---
Author Organization [facility] Address [address] [place] [phone] Care Team Providers Care Corporate Logistics Manager Name Role Phone Peyman Dunn MD Primary Care Provider Arturo Nelson [phone] Nivia Hidalgo Unavailable Unavailable REASON FOR VISIT Patient presents today for ELEVATED LFT'S Encounters Encounter Location Date Provider Diagnosis [facility] [address] [place] [phone] 02/08/2024 Arturo Baxter Plan Of Treatment No Information Progress Notes * RODRICK BUTLEROB:1975 ( 49 yo M)Acc No.[id number]:02/08/2024 Progress Notes Patient: GIOVANNA RAINEY Provider: Russ Baxter MD :1975 A ge:48 Y S ex:Male Date:02/08/2024 Address:[address] [place] [address], [facility] Pcp:Peyman Dunn MD Subjective: * Chief Complaints: [...] MD Date: 02/08/2024 Generated for Jo Ann ceja/Subhash/eTransmitting on: 0 06/22/2025 01:04 PM EDT
--- OUTSIDE RECORDS SUMMARY | 2024-04-13 07:30 | XMS_ITS ---
Author Organization [facility] Address [address] [place] [address] Care Team Providers Care Contractor General Engineering Name Role Phone Peyman Dunn Primary Care Provider Keely Treviño [phone] Encounters Encounter Location Date Provider Diagnosis [address] [address] 04/13/2024 Keely Charles Plan Of Treatment No Information Progress Notes * Kailash NDIAYE LDOB:1975 (49 yo M)Acc No.[id number]:04/13/2024 Progress Notes Patient: Jade RAINEYrge L Provider: Stanley Charles DPM :1975 A ge:48 Y S ex:Male Date:04/13/2024 Address:[address] [place], [place] [id number] Pcp:Peyman Dunn Subjective: * Chief Complaints: * * Medical History: Objective: * Vitals: Assessment: Plan: * Treatment: * Images: * The named appointment provid er may or may not be the originator of this progress note, and it is not deemed complete until electronically signed by the appointment provider. Sign off status: Pending * Provider: Stanley Charles DPM Date: 04/13/2024 Generated for Cristianai ng/Faemileeg/eTransmitting on: 06/22/2025 01:04 PM EDT
--- NOTE | 2025-06-22 11:34 | MHC.OFFVIS ---
Vital Signs 06/22/25 12:03 BP 102/70 Blood Pressure Location Lt brachial Pulse 60 Intake Visit Reasons: 6 weeks tremors Forensic Science Technician Required: No Accompanied by: Spouse Allergies azathioprine (From IMURAN) Allergy (Unknown, Verified 06/08/25 10:33) PANCREASE SWELLING infliximab (From REMICADE) Allergy (Unknown, Verified 06/08/25 10:33) DIFFICULTY BREATHING mannitol (Reclast) Allergy (Unknown, Verified 06/08/25 10:33) joint pain silver (From TEGADERM AG MESH) Allergy (Unknown, Verified 06/08/25 10:33) BLISTERS water for injection,sterile (Reclast) Allergy (Unknown, Verified 06/08/25 10:33) joint pain zoledronic acid (Reclast) Allergy (Unknown, Verified 06/08/25 10:33) joint pain Medication List - Last Reconciled 06/22/25 by Carli Arce, AUBREY acetaminophen (Tylenol Extra Strength) 500 mg PO Q6H PRN apixaban (Eliquis) 5 mg PO BID 90 days ascorbic acid (vitamin C) 500 mg PO DAILY atorvastatin 20 mg PO BEDTIME calcium citrate 250 mg PO DAILY carboxymethylcellulose sodium 0.5% (Lubricant Eye Drops) 1 drp ophthalmic (eye) BID PRN cholecalciferol (vitamin D3) 50 mcg PO DAILY 90 days ciclopirox 0.77% 0.77 appl topical BID cyanocobalamin (vitamin B-12) 1,000 mcg PO DAILY 90 days ferrous sulfate (Feosol) 325 mg PO DAILY folic acid 1 mg PO DAILY ketorolac 0.5% 0.5 drps ophthalmic (eye) DAILY omeprazole 20 mg PO DAILY 90 days ondansetron 4 mg PO Q8H PRN potassium chloride ER (Klor-Con M) 20 mEq PO BID propranolol 40 mg (2 x 20 mg) PO BID 90 days sertraline 100 mg PO DAILY 90 days tizanidine 4 mg PO BID PRN 90 days ursodiol orally 2 times a day; 1 tab in morning and 2 tabs in evening zolpidem ER (Ambien CR) 12.5 mg PO BEDTIME PRN HPI Comments Details: Kailash is a 49-year-old male patient with a past medical history of tremor, 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 He was last seen by Mariah FOSTER in April of 2025. At that time, his dose of propranolol was increased from 30 mg twice daily to 40 mg twice daily because he reported worsening tremor at that time. Today he tells me that since increasing the dose of propranolol to the 40 mg twice daily dose, he has not seen any significant improvement in his tremor. The tremor is intermittent but it has been affecting his day-to-day life including eating, drinking, bathing, dressing, grooming, and writing. He can not identify any specific triggers such as stress or anxiety. He has not tried any other therapies for this in the past though does note that he has been on topiramate for his moods in the past prior to onset of his tremor and he is also taking gabapentin for nerve pain in the past without any adverse effects. He is currently at [facility] preparing for a liver transplant. He has been working with the liver transplant team and will be undergoing several tests in preparation for likely transplant in the future. He denies any family history of tremor. 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 Mother Osteoporosis Heart problem HTN (hypertension) Maternal Aunt Breast cancer Social History Household Members: None Housing: House Are you a primary nurse behavioral health care to a significant other at home: No Do you presently have visiting nurse or other home services: Yes Alcohol intake: current Alcohol intake frequency: does not drink Patient Tobacco Use Status: Former Tobacco user Tobacco use type: Cigarette e-Cigarette/Vaping Use: Never Used Second Hand Smoke Exposure: Yes Substance Use Type: Marijuana service: No Current occupational status: disabled Cognitive needs: No Hearing needs: No Vision needs: Yes (Glasses) Review of Systems Const All systems reviewed & are unremarkable except as noted in HPI and below Physical Exam Const General: cooperative, healthy appearing, comfortable and no acute distress Nutritional Appearance: well nourished Orientation/consciousness: patient oriented x3 Limitations: no limitations Eyes Other: Bilateral horizontal nystagmus Sclerae: scleral abnormal bilateral (Jaundice) Skin General skin exam: jaundice Neuro General: patient oriented x3, tone normal and deep tendon reflexes 2+ bilaterally Cranial nerves: Yes Facial sensation intact/muscles of mastication intact Cognition (Neuro): normal cognition Gait exam (Neuro): Normal gait present Motor exam (neuro): 5/5 motor strength present throughout and Tremors during motor activity present (Mild intermittent action tremor noted on exam) bilateral upper extremity Sensory Exam: double simultaneous stimulation for sensation normal Romberg Test: Negative Psych Appearance: grossly normal Mental Status: mental status grossly normal Speech and movement: Normal speech and movement present and Clear speech present Affect: normal affect Attitude: cooperative Thought process: Normal thought process present Thought content: Normal thought content present Insight: Good insight present (Psych) Judgement: Good judgement present (Psych) Assessment & Plan Assessment & Plan (1) Essential tremor: Code(s): G25.0 - Essential tremor Category: Medical Plan Kailash is a 49-year-old male patient with a past medical history of tremor, 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 He has not really seen any improvement with propranolol up to doses of 40 mg twice daily. His blood pressure was also notably quite soft today and has been at prior visits as well. I do not think going up on the propranolol would be a reasonable choice and therefore we discussed alternative agents today. We decided on a trial of low-dose gabapentin with keeping in mind hepatic dosing. I will start him at 100 mg in the evening and if he tolerates well, can increase to 100 mg twice daily. We can make further dose adjustments at consecutive visits if he tolerates. We also discussed tapering down on the propranolol slowly. I did give him written directions on how to do this over the course of a month or more. -start a trial of gabapentin 100 mg twice daily (starting with the evening dose only for about a week) -taper down on propranolol slowly. Patient given written directions on how to do this -follow up in 3 months or sooner if needed Coding Level of Care Code Est Pt Level 4 (81091) Diagnoses Essential tremor G25.0
[2025-06-22 12:03] VITALS: BP 102/70; PULSE 60
--- OUTSIDE RECORDS SUMMARY | 2025-06-22 13:04 | XMS_ITS | Clinical Summary ---
Author Organization [employer] Address [address] [facility] [address] [place] [address] Care Team Providers Care Cable Splicer Name Role Phone Unavailable Primary Care Provider [...] Description 06/11/2025 11:00 AM EDT Office Visit [facility] [address] [place] [address] Kem Estrada DDS Dental caries (Primary Dx) [...] Patient Date of Phone Billing Address Personal/Family [address] [place] [phone] [facility] MEDICAID [facility] ADULT DENTAL [facility]
--- OUTSIDE RECORDS SUMMARY | 2025-06-22 13:04 | XMS_ITS ---
Author Organization [facility] Address [address] [place] [phone] Phone Care Team Providers Care Nonprofit Fundraiser Name Role Phone Peyman Dunn MD Primary Care Provider [phone] Transplant Episode Liver Candidate [facility] [place] began on 05/30/2025 Marked as Deferred on 06/13/2025 Reason: Pending Additional Tests Liver CoordinatorMya Kimbrough RN Fax: N/A Email: [email or web address] Scores Score Value Updated Expires Exceptions/[place] sons CPRA Not available UNOS MELD Not available MELD (Calc) 15 05/30/2025 [place] Organ Diagnosis Organ 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 Veronica Roe MD Transplant Surgeon [phone] [email or web address] Deb Samayoa Braddisher N/A N/A N/A SUDARSHAN Collins Dietitian [phone] N/A [email or web address] Events Pre-Transplant Referred: 04/27/2025 Evaluation began: 05/30/2025 Committee: 06/13/2025 Appointments (05/22/2025 - 07/22/2025) When With Visit Type Description 05/30/2025 Social Servi - Tino, B Non Amrit lable Patient Care 05/30/2025 Transplant [...] PHONE NEW 06/14/2025 Transplant - Dipti Macias TELEMEDICINE PHON E NEW Pre-transplant evaluation for liver transplant (Primary Dx)
--- OUTSIDE RECORDS SUMMARY | 2025-06-22 13:04 | XMS_ITS | Data Portability ---
Author Organization [facility], Allergy Address [address] [place] [address] Care Team Providers Care Molding Utility Worker Name Role Phone SHERI HILL Primary Care Provider [phone] Assessment Encounter Date Assessment Date Assessment LastModified by Organization Details LastModified Time 07/10/2024 07/10/2024 Right tympanic membrane is intact with aerated middle ear space. Left T-tube is in good position and patent. Patient currently pleased with his auditory performance and how his ears are feeling in general. We will continue with observation of this tube and have him follow-up with physician physical therapist assistant in 6 months. [email or web address] Not available 07/10/2024 11:30:21 01/08/2025 01/08/2025 49-year-old male with extensive history of ETD presents for reevaluation. On examination the right drum remains scarred but with well aerated middle ear space. No retraction or over insufflation. Left tube remains in place and patent. Continue observation and follow-up in 6 months. [email or web address] Not available 01/08/2025 11:36:41 Plan of Treatment Reminders Order Date Submit Date Provider Last Modified By Organization Details Last Modified Time Details Appointments Establish ed 15 2024 10:30A M RICKEY CHANG Not available Not available Not available Lab None recorded. Referral None recorded. Procedures None recorded. Surgeries None recorded. Imaging None recorded. Medication Orders None recorded. Patient TargetsNo targets recorded. Patient InstructionsNo instructions recorded. Reason for Referral None Reported. Problems Name Problem SNOMED Code Status Onset Date Resolution Date Notes Provider Name and Address Organization Details Recorded Time Otorrhea 33883504 Completed 201304/28/2024 Otorrhea ; Note: Date Diagnose d: 4 3:36 PM (388.60) Not Available [facility] 4 02:20:10 Abnormal granulat ion tissue 61601276 Completed 201304/28/2024 Other abnormal granulat ion tissue; Note: Date Diagnose d: 4 3:36 PM (701.5) Not Available [facility] 4 02:19:39 Conducti ve hearing loss, bilatera l 739493675 Active 2014 Conducti ve HL, bilatera l; Note: Date Diagnose d: 5 9:19 AM (389.06) Not Available [facility] 4 02:19:31 Conducti ve hearing loss 90723388 Active 2015 Conducti ve hearing loss, unilater al, right ear, with unrestri cted hearing on the contrala teral side; Note: Date Diagnose d: 6 4:27 PM (H90.11) Not Available [facility] 4 02:20:11 Bilatera l disorder of Eustachi an tubes 80723907871 45324 Active 2015 Other specifie d disorder s of Eustachi an tube, bilatera l; Note: Date Diagnose d: 6 3:50 PM (H69.83) Not Available [facility] 4 02:19:34 Sensorin eural hearing loss 05041528 Active 2015 Sensorin eural hearing loss, unilater al, left ear, with unrestri cted hearing on the contrala teral side; Note: Date Diagnose d: 6 3:50 PM (H90.42) Not Available [facility] 4 02:19:20 Chronic serous otitis media of right ear 835006220 Active 2016 Chronic serous otitis media, right ear; Note: Changed from H65.01 to H65.21 (10/20/19 19 10:45 AM) , Date Diagnose d: 7 3:35 PM (H65.01) Not Available [facility] 4 02:19:22 Marginal perforat ion of tympanic membrane 48928784 Completed 201804/28/2024 Other marginal perforat ions of tympanic membrane , left ear; Note: Date Diagnose d: 9 3:56 PM (H72.2X2 ) Not Available [facility] 4 02:19:34 Mixed conducti ve and sensorin eural hearing loss, bilatera l 248614500 Active 2018 Mixed conducti ve and sensorin eural hearing loss, bilatera l; Note: Date Diagnose d: 9 10:40 AM (H90.6) Not Available [facility] 4 02:19:40 Impacted cerumen in right ear 83132273989 50602 Active 2018 Impacted cerumen, right ear; Note: Date Diagnose d: 07/12/20 19 1:19 PM (H61.21) Not Available [facility] 4 02:20:05 Abnormal auditory percepti on 51221632 Active 2019 Other abnormal auditory percepti ons, bilatera l; Note: Date Diagnose d: 0 1:35 PM (H93.293 ) Not Available [facility] 4 02:19:45 Acute myringit is of left ear 21524098766 62028 Active 2019 Acute myringit is, left ear; Note: Date Diagnose d: 0 9:33 AM (H73.002 ) Not Available [facility] 4 02:19:45 Chronic mucoid otitis media of left middle ear 62326153545 26885 Active 2019 Chronic mucoid otitis media, left ear; Note: Date Diagnose d: 0 9:04 AM (H65.32) Not Available [facility] 4 02:19:17 Chronic left myringit is 35946026462 93323 Completed 201904/28/2024 Chronic myringit is, left ear; Note: Date Diagnose d: 07/11/20 20 9:44 AM (H73.12) Not Available [facility] 4 02:20:02 Otorrhea of left ear 71149518945 37823 Active 2019 Otorrhea , left ear; Note: Date Diagnose d: 07/11/20 20 9:45 AM (H92.12) Not Available [facility] 4 02:20:06 Obstruct jeff sleep apnea syndrome 04395688 Active 2021 Obstruct jeff sleep apnea (adult) (pediatr ic); Note: Date Diagnose d: 2 2:19 PM (G47.33) Not Available [facility] 4 02:19:44 Mixed conducti ve and sensorin eural hearing loss of left ear 41175655323 107 Active 2021 Mixed conducti ve and [...] 2 2:22 PM (H90.A32 ) Not Available [facility] 4 02:19:34 Sensorin eural hearing loss in right ear 53964342554 100 Active 2021 Sensorin eural hearing loss, unilater al, right ear, with restrict ed hearing on the contrala teral side; Note: Date Diagnose d: 2 2:22 PM (H90.A21 ) Not Available [facility] 4 02:19:55 Problem Notes None recorded. Medical [...] mg tablet 07/10 completed Medicati on ID: [id number] D uration Value: 30 Brand Name: warfarin [...] topical cream 07/11 completed Medicati on ID: [id number] D uration Value: 1 Brand Name: permethr in Send Method: E-Prescr ibed Sub s Allowed: subs OK Speci al Instruct ion: SERGIO FROM HEAD TO TOE AND RINSE AFTER 12 H UTD [facility] cation nericNam e: permethr in Not Available [...] mg tablet 06/17 completed Medicati on ID: [id number] B rand Name: hydromor phone Se nd Method: E-Prescr ibed Sub s Allowed: subs OK Medic ationGen ericName : hydromor phone Not Available Not Available Not Available Lovenox 100 mg/mL subcutane ous syringe 06/17 completed Medicati on ID: [id number] B rand Name: Lovenox Send Method: E-Prescr ibed Sub s Allowed: subs OK Medic ationGen ericName : Lovenox Not Available Not Available Not Available ascorbic acid (vitamin C) 500 mg tablet TAKE 1 TABLET BY MOUTH ONCE DAILY active Not Available Not Available No t Available Cartia XT 120 mg capsule,e xtended release 06/17 completed Medicati on ID: [id number] D uration Value: 30 Brand Name: Cartia [...] mg tablet 07/11 completed Medicati on ID: [id number] D uration Value: 30 Brand Name: warfarin [...] mg tablet 07/11 completed Medicati on ID: [id number] D uration Value: 30 Brand Name: oxcarbaz [...] layed release 06/17 completed Medicati on ID: [id number] D uration Value: 30 Brand Name: bisacody l Send Method: E-Prescr ibed Sub s Allowed: subs OK Speci al Instruct ion: TK 1 T PO BID PRN Medi cationGe nericNam e: bisacody l Not Available Not Available Not Available mirtazapi ne 15 mg tablet 10/20 completed Medicati on ID: [id number] D uration Value: 30 Reason: () Brand Name: mirtazap ine Send Method: E-Prescr ibed Sub s Allowed: subs OK Speci al Instruct ion: TK 1 T PO QHS Medi cationGe nericNam e: mirtazap ine Not Available Not Available Not Available gabapenti n 100 mg capsule 07/10 completed Medicati on ID: [id number] B rand Name: gabapent in Send Method: E-Prescr ibed Sub s Allowed: subs OK Medic ationGen ericName : gabapent in Not Available Not Available Not Available propranol ol 20 mg tablet TAKE 1 AND 1/2 TABLETS BY MOUTH TWICE DAILY active Not Available Not Available No t Available topiramat e 100 mg tablet 10/20 completed Medicati on ID: [id number] D uration Value: 30 Reason: () Brand Name: topirama te Send Method: E-Prescr ibed Sub s Allowed: subs OK Speci al Instruct ion: TK 1 T PO BID Medi cationGe nericNam e: topirama te Not Available Not Available Not Available multivita min capsule active Medicati on ID: [id number] B rand Name: multivit green Sen d Method: E-Prescr ibed Sub s Allowed: subs OK Medic ationGen ericName : multivit green Not Available Not Available Not Available sertralin e 50 mg tablet 07/10 completed Medicati on ID: [id number] B rand Name: sertrali ne Send Method: E-Prescr ibed Sub s Allowed: subs OK Medic ationGen ericName : sertrali ne Not Available Not Available Not Available naproxen 500 mg tablet TAKE 1 TABLET BY MOUTH TWICE DAILY 01/08 completed Not Available Not Available Not Available Vitamin B-12 1,000 mcg tablet active Medicati on ID: [id number] B rand Name: Vitamin B-12 Sen d [...] drops,manan p 12/11 completed Medicati on ID: [id number] Pr escribed By Name: EMELIA Gipson nd Name: neomycin -polymyx in-HC Se nd Method: E-Prescr ibed Sub s Allowed: subs OK Speci al Instruct ion: 4 drops left ear BID X 14 days Med icationG enericNa me: neomycin -polymyx in-HC Not Available Not Available Not Available TobraDex 0.3 %-0.1 % eye drops,manan pension 07/10 completed Medicati on ID: [id number] D uration Value: 10 Prescri bed By Name: Saúl Hammond nd Name: TobraDex Send Method: E-Prescr ibed Sub s Allowed: subs OK Speci al Instruct ion: Instill 4 drops in the affected ear twice a day for 10 days [facility] TobraDex Not Available Not Available Not Available bupropion HCl SR 200 mg tablet,12 hr sustained -release 10/20 completed Medicati on ID: [id number] D uration Value: 30 Reason: () Brand [...] right ear 07/10 completed Medicati on ID: [id number] D uration Value: 7 Prescri bed By Name: Saúl Hammond nd Name: Ciprodex Send Method: E-Prescr ibed Sub s Allowed: subs MARTITA daley Instruct ion: x 1 week Med [facility] enericNa me: Ciprodex Not Available Not Available Not [...] aerosol inhaler 07/11 completed Medicati on ID: [id number] D uration Value: 16 Brand Name: ProAir [...] unit) tablet 07/10 completed Medicati on ID: [id number] B rand Name: cholecal ciferol (vitamin D3) Send Method: E-Prescr ibed Sub s Allowed: subs OK Medic ationGen ericName : cholecal ciferol (vitamin D3) Not Available Not Available Not Available Eliquis 5 mg tablet TAKE 1 TABLET BY MOUTH TWICE DAILY active Not Available Not Available No t Available potassium chloride ER 20 mEq tablet,ex tended release 07/11 completed Medicati on ID: [id number] D uration Value: 30 Brand Name: gracia mcpherson chloride Send Method: E-Prescr ibed Sub s Allowed: subs OK Speci al Instruct ion: TK 1 T [facility]D [facility] gracia mcpherson chloride Not Available Not Available Not Available Vitals Date Recorded Body height Body mass index (BMI) Body weight Provider Name and Address Organization Details Last Updated DateTime 01/08/2025 172.72 cm 27.4 kg/m2 02030.63 g Abby Nagel [place] - [facility] 01/08/2025 11:00:09 Social History None recorded. Functional Status None recorded. Mental Status None recorded. Family History Nothing Reported. Medical History Condition Response Diabetes Y Arthritis Y Stroke Y Hypertension Y Past Encounters Encounter ID Performer Location Encounter Start Date Encounter Closed Date Diagnosis/Indication Diagnosis SNOMED-CT Code Diagnosis ICD10 Code Diagnosis IMO Codes Diagnosis Note [id number] TOMER DUNBAR MD [facility] [address] [address] 07/10/2024 09:41:31 07/10/2024 11:29:44 Bilateral disorder of Eustachian tubes 0643133899 985072 H69.83 [id number] ARDEN SILVA PA-C [facility] [address] [place] [address] 01/08/2025 10:53:21 01/08/2025 11:10:01 Bilateral disorder of Eustachian tubes [id number] 652381 H69.83 Health Concerns Section Related Observation LastModified by Organization Detai ls LastModified Time None Recorded Concern Status LastModified by Organization Details LastModified Time None Recorded Advance Directives Directive None Recorded Payers Insurance Date Sequence Insurance Name Policy Number Policy Fajardo Covered Member ID Fajardo Member ID Guarantor Name 01/01/2025 1 [facility] - DOS ON OR AFTER 2022 - MEDICARE [place]VANTAGE [place]MEDICARE REPLACEMENT/ADV ANTAGE - PPO) Kailash Ndiaye [id number] Kailash Ndiaye 01/07/2025 1 [facility] - DOS ON OR AFTER 2022 - ONE CARE (MEDICARE REPLACEMENT/ADV ANTAGE - HMO) Kailash Ndiaye [id number] Kailash Ndiaye Notes Date Note Type Note [...] been feeling much better. TOMER DUNBAR MD [address] [place] [address], [place], [address], [facility] - [facility] 07/10/2024 11:30:57 01/08/2025 text/html ROS as noted [...] ears frequently. Hearing stable. TOMER DUNBAR MD [address] [place] [address], [place], [address], [facility] - [facility] 01/09/2025 16:38:34
--- OUTSIDE RECORDS SUMMARY | 2025-06-22 13:04 | XMS_ITS | Patient Health Record ---
Author Organization [facility] Address [address] [place] [address] Care Team Providers Care Technician Inventory Specialist Name Role Phone Peyman Dunn Primary Care Provider Keely Treviño Unavailable [phone] Allergies Allergen (clinical drug ingredient) Drug/Non Drug [...] Notes Problem Ulcer of right foot (disorder) (613567645) Ulcer of right foot with fat layer exposed (L97.512) Active confirmed Vital Signs Height 5ft 8in in 07/03/2024 Weight 185 lbs 07/03/2024 BMI 28.13 kg/m2 07/03/2024 Encounters Encounter Location Date Provider Diagnosis [facility] [address] [address] 07/03/2024 Keely Charles Closed displaced fracture of [...] Insured Coverage Start Date Coverage End Date [facility] [employer] Claims [address] RICKEY Stacy [phone] [id number] Kailash Ndiaye Self - patient is the insured Medical (General) History Medical History History ICD Code Anxiety Broken bones Crohns disease Colitis Depression Hiatal hernia High blood pressure Poor circulation Chicken pox Transfusions [facility] Surgical History Surgery Date(Month/Year) colon removed Ostemy reversal right heel surgery colonoscopy Hospitalization History Reason Date(Month/Year) [facility] Broken toe 04/03/24
--- OUTSIDE RECORDS SUMMARY | 2025-06-22 13:05 | XMS_ITS | Encounter Summary ---
Author Organization [facility] Address [address] [place] [address] Phone Care Team Providers Care Job Coach Name Role Phone Peyman Dunn MD Primary Care Provider [phone] Encounter Details Date Type Department Care Team (Late st Contact Info) Description 06/13/2025 Committee Review [facility] [address] [place] [address] Mya Kimbrough RN [address] [place] [address] [email or web address] Social History Tobacco Use Types Packs/Day [...] Info) Description 08/14/2025 9:00 AM EST Telemedicine [facility] [address] [place] [phone] Merari Ruiz MD [address] [place] [phone] [email or web address] 08/20/2025 12:30 PM EST Office Visit [address] [address] Oscar Goyal MD, PhD [address] [place] [address] [email or web address] documented as of this encounter Visit Diagnoses Not on filedocumented in this encounter Care Teams Job Coach Relationship Specialty Start Date End Date Peyman Dunn MD [address] [place] [phone] PCP - General Internal Medicine 03/06/24 documented as of this encounter Additional Source Comments The information contained in this document represents components of the legal health record. It is not the complete legal health record.[facility]
--- OUTSIDE RECORDS SUMMARY | 2025-06-22 13:05 | XMS_ITS | Encounter Summary ---
Author Organization [facility] Address [address] [place] [address] Phone Care Team Providers Care Office Machine Technician Name Role Phone Peyman Dunn MD Primary Care Provider [phone] Encounter Details Date Type Department Care Team (Late st Contact Info) Description 04/05/2025 Telephone [facility] [address] 5th [place] [address] Margie Multani RN [address] [place] [address] [email or web address] Social History Tobacco Use Types Packs/Day [...] Info) Description 08/14/2025 9:00 AM EST Telemedicine [facility] [address] [facility] [address] [place] [address] Merari Ruiz MD [address] [place] [id number] [email or web address] 08/20/2025 12:30 PM EST Office Visit [facility] [address] [address] Oscar Goyal MD, PhD [address] [place] [address] [email or web address] documented as of this encounter Visit Diagnoses Not on filedocumented in this encounter Care Teams Office Machine Technician Relationship Specialty Start Date End Date Shaun, Peyman Giles MD [address] [place] [phone] PCP - General Internal Medicine 03/06/24 documented as of this encounter Additional Source Comments The information contained in this document represents components of the legal health record. It is not the complete legal health record.[facility]
--- OUTSIDE RECORDS SUMMARY | 2025-06-22 13:05 | XMS_ITS | Encounter Summary ---
Author Organization [facility] Address [address] [address] Phone Care Team Providers Care Fork Truck Operator Name Role Phone Peyman Dunn MD Primary Care Provider [phone] Encounter Details Date Type Department Care Team (Late st Contact Info) Description 05/02/2025 Telephone [facility] [address] [facility] 5th [place] [address] Margie Multani RN [address] [place] [address] [email or web address] Social History Tobacco Use Types Packs/Day [...] eyes ) They plan to go to [facility] for labs documented in this encounter Plan of Treatment Upcoming Encounters Date Type Department Care Team (Late st Contact Info) Description 08/14/2025 9:00 AM EST Telemedicine [facility] [address] [place] [address] Merari Ruiz MD [address] [place] [phone] [email or web address] 08/20/2025 12:30 PM EST Office Visit [facility] [address] [facility] [address] [place] [address] Oscar Goyal MD, PhD [address] [place] [phone] [email or web address] documented as of this encounter Visit Diagnoses Not on filedocumented in this encounter Care Teams Fork Truck Operator Relationship Specialty Start Date End Date Po, Peyman Giles MD [address] [place] [phone] PCP - General Internal Medicine 03/06/24 documented as of this encounter Additional Source Comments The information contained in this document represents components of the legal health record. It is not the complete legal health record.[facility]
--- OUTSIDE RECORDS SUMMARY | 2025-06-22 13:05 | XMS_ITS | Encounter Summary ---
Author Organization [facility] Address [address] [place] [address] Phone Care Team Providers Care Rate Clerk Passenger Name Role Phone Peyman Dunn MD Primary Care Provider [phone] Reason for Referral * Consultation (Elective) - New Request Specialty Diagnoses / Procedures Referred By Destiney hernandez Referred To Contact Infectious Diseases Diagnoses Pre-operative cardiovascular examination, high risk surgery Encounter for other preprocedural examination 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) Faustino Dozier MD [address] [place] [address] Phone: tel: fax: mailto:[email or web address].[address] [address] Phone: tel: Referral ID Status Reason Start Date Expiration Date V isits Requested Visits Authorized [id number] New Request 06/22/2025 06/22/2026 1 1 * Outpatient Procedure - New Request Specialty Diagnoses / Procedures Referred By Destiney hernandez Referred To Contact Diagnoses Pre-operative cardiovascular examination, high risk surgery Encounter for other preprocedural examination 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) Procedures Adult Echo TTE Faustino Dozier MD [address] [place] [address] Phone: tel: fax: mailto:[email or web address] Referral ID Status Reason Start Date Expiration Date V isits Requested Visits Authorized [id number] New Request 06/22/2025 1 1 * MRI/CAT Scan - New Request Specialty Diagnoses / Procedures Referred By Destiney t Referred To Contact Radiology Diagnoses Pre-operative cardiovascular examination, high risk surgery Encounter for other preprocedural examination 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) Procedures NC Myocardial Perfusion Pharmacologic Stress Multiple Faustino Dozier MD [address] [place] [address] Phone: tel: fax: mailto:[email or web address] Referral ID Status Reason Start Date Expiration Date V isits Requested Visits Authorized [id number] New Request 06/22/2025 1 1 Encounter Details Date Type Department Care Team (Late st Contact Info) Description 06/22/2025 Orders Only [facility] Trans[facility] [address] [address] Mya Kimbrough, VIDAL [address] [place] [address] [email or web address] Pre-operative cardiovascular examination, high risk surgery (Primary Dx); Encounter for other preprocedural examination; Liver transplant candidate; PSC (primary sclerosing cholangitis) Social History Tobacco [...] Info) Description 08/14/2025 9:00 AM EST Telemedicine [facility] [address] [place] [address] Merari Ruiz MD [address] [place] [id number] [email or web address] 08/20/2025 12:30 PM EST Office Visit [address] [address] Oscar Goyal MD, PhD [address] [place] [address] [email or web address] Scheduled Orders Name Type Priority Associated Diagnoses Orde r Schedule NC Myocardial Perfusion Pharmacologic Stress Multiple Nuclear Cardiology Routine Pre-operative cardiovascular examination, high risk surgery Encounter for other preprocedural examination 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) Expected: 06/22/2025, Expires: 10/22/2025 Adult Echo TTE Echocardiography Routine Pre-operative cardiovascular examination, high risk surgery Encounter for other preprocedural examination 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) Expected: 06/22/2025, Expires: 10/22/2025 Scheduled Referrals Name Type Priority Associated Diagnoses Orde r Schedule Ambulatory referral to [facility] Infectious Disease Outpatient Referral Routine Pre-operative cardiovascular examination, high risk surgery Encounter for other preprocedural examination 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) Ordered: 06/22/2025 documented as of this encounter Visit Diagnoses Diagnosis Pre-operative cardiovascular examination, high risk surgery- Primary Pre-operative cardiovascular examination Encounter for other preprocedural examination 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) documented in this encounter Care Teams Rate Clerk Passenger Relationship Specialty Start Date End Date Po, Peyman Giles MD [address] [place] [address] [place] [phone] PCP - General Internal Medicine 03/06/24 documented as of this encounter Additional Source Comments The information contained in this document represents components of the legal health record. It is not the complete legal health record.[facility]
--- OUTSIDE RECORDS SUMMARY | 2025-06-22 13:05 | XMS_ITS | Clinical Summary ---
Author Organization [facility], Address [address] [place] [address] [place] [address] Phone Care Team Providers Care Steel Crane Operator Name Role Phone Peyman Dunn MD Primary Care Provider [phone] Allergies Active Allergy Reactions Criticality Noted Date [...] Immunizations Immunization Administration Dates Next Due [facility] [...] Influenza Vaccine (#1) 2025 Insurance [facility] [employer] [id number] 1 [place] [address] Care Teams Steel Crane Operator Relationship Specialty Start Date End Date Peyman Dunn MD [facility] [place] [address] [place] PCP - General 08/01/19
--- OUTSIDE RECORDS SUMMARY | 2025-06-22 13:05 | XMS_ITS | Encounter Summary ---
Author Organization [facility] Address [address] [facility] [address] [place] [address] Phone Care Team Providers Care Tools Programmer Name Role Phone Peyman Dunn MD Primary Care Provider [phone] Encounter Details Date Type Department Care Team (Late st Contact Info) Description 07/04/2024 Procedure Pass MRI, [facility] - [address], [address] [place] [id number] Social History Tobacco Use Types Packs/Day Years [...] Info) Description 08/14/2025 9:00 AM EST Telemedicine [facility] [address] [place] [address], [address]th [place] [address] Merari Ruiz MD [address] [facility] [place] [address] [email or web address] 08/20/2025 12:30 PM EST Office Visit [facility] [address] [facility] [address] [place] [address] Oscar Goyal MD, PhD [address] [place] [address] [email or web address] documented as of this encounter Visit Diagnoses Not on filedocumented in this encounter Care Teams Tools Programmer Relationship Specialty Start Date End Date Shaun, Peyman Giles MD [address] [place] [address] Drive [address] [place] [phone] PCP - General Internal Medicine 03/06/24 documented as of this encounter Additional Source Comments The information contained in this document represents components of the legal health record. It is not the complete legal health record.[facility]
--- OUTSIDE RECORDS SUMMARY | 2025-06-22 13:05 | XMS_ITS | Patient Health Record ---
Author Organization [facility] Address [address] [place] [address] Care Team Providers Care Utilization Management Manager Name Role Phone Po Peyman VILLA Primary Care Provider Arturo Nelson Unavailable [phone] Nivia Hidalgo Unavailable Unavailable Reason For Referral No Information Plan Of Treatment No Information Insurance Providers Payer Name Payer Address Payer Phone Subscriber Number Group Number Insured Name Patient Relationship to Insured Coverage Start Date Coverage End Date [facility] [address] [place] [address] [id number] GIOVANNA BUTLER Self - patient is the insured
--- OUTSIDE RECORDS SUMMARY | 2025-06-22 13:05 | XMS_ITS | Encounter Summary ---
Author Organization [facility] Address [address] [place] [address] Phone Care Team Providers Care Camp Head Counselor Name Role Phone Peyman Dunn MD Primary Care Provider [phone] Encounter Details Date Type Department Care Team (Late st Contact Info) Description 04/12/2025 Procedure Pass [facility] 4 ENDO DEPT [address] [facility], 4th [place] [address] Social History Tobacco Use Types Packs/Day Years [...] Info) Description 08/14/2025 9:00 AM EST Telemedicine [facility] [address] [place] [address] Merari Ruiz MD [address] [place] [phone] [email or web address] 08/20/2025 12:30 PM EST Office Visit [address] [address] Oscar Goyal MD, PhD [address] [place] [phone] [email or web address] documented as of this encounter Visit Diagnoses Not on filedocumented in this encounter Care Teams Camp Head Counselor Relationship Specialty Start Date End Date Peyman Dunn MD [address] [place] [phone] PCP - General Internal Medicine 03/06/24 documented as of this encounter Additional Source Comments The information contained in this document represents components of the legal health record. It is not the complete legal health record.[facility]
--- OUTSIDE RECORDS SUMMARY | 2025-06-22 13:05 | XMS_ITS | Encounter Summary ---
Author Organization [facility] Address [address] [place] [address] Phone Care Team Providers Care Egg Breaking Machine Operator Name Role Phone Peyman Dunn MD Primary Care Provider [phone] Encounter Details Date Type Department Care Team (Late st Contact Info) Description 05/15/2025 Procedure Pass [facility]E [address] ENDO DE[address] [facility], 4th [place] [address] Social History Tobacco Use Types Packs/Day Years [...] Info) Description 08/14/2025 9:00 AM EST Telemedicine [facility] [address] [place] [address] Merari Ruiz MD [address] [place] [address] [email or web address] 08/20/2025 12:30 PM EST Office Visit [address] [address] Oscar Goyal MD, PhD [address] [place] [phone] [email or web address] documented as of this encounter Visit Diagnoses Not on filedocumented in this encounter Care Teams Egg Breaking Machine Operator Relationship Specialty Start Date End Date Peyman Dunn MD [address] [facility] [address] [place] [phone] PCP - General Internal Medicine 03/06/24 documented as of this encounter Additional Source Comments The information contained in this document represents components of the legal health record. It is not the complete legal health record.[facility]
--- OUTSIDE RECORDS SUMMARY | 2025-06-22 13:05 | XMS_ITS | Encounter Summary ---
Author Organization [facility] Address [address] [place] [address] Phone Care Team Providers Care Fundraising Coordinator Name Role Phone Peyman Dunn MD Primary Care Provider Encounter Details Date Type Department Care Team (Late st Contact Info) Description 04/05/2025 Telephone [facility] [address] [facility], 5th [place] [address] Margie Multani RN [address] [place] [address] [email or web address] Social History Tobacco Use Types Packs/Day [...] Info) Description 08/14/2025 9:00 AM EST Telemedicine [facility] [address] [facility] 5th [place] [address] Merari Ruiz MD [address] [place] [address] [email or web address] 08/20/2025 12:30 PM EST Office Visit [facility] [address] [address] Oscar Goyal MD, PhD [address] [place] [address] [email or web address] documented as of this encounter Visit Diagnoses Not on filedocumented in this encounter Care Teams Fundraising Coordinator Relationship Specialty Start Date End Date Shaun, Peyman Giles MD [address] [place] [phone] PCP - General Internal Medicine 03/06/24 documented as of this encounter Additional Source Comments The information contained in this document represents components of the legal health record. It is not the complete legal health record.[facility]
--- OUTSIDE RECORDS SUMMARY | 2025-06-22 13:05 | XMS_ITS | Clinical Summary ---
Author Organization [facility] Address [address] [place] [address] Phone Care Team Providers Care Assistant Construction Superintendent Name Role Phone Peyman Dunn MD Primary Care Provider [phone] Allergies Active Allergy Reactions Criticality Noted Date [...] Take 500 mg by mouth daily. Active cholecalciferol (VITAMIN D3) 2,000 unit capsule 1 capsule. Active cyanocobalamin, vitamin B-12, 1000 MCG tablet Take 1,000 mcg by mouth. Active diphenhydrAMINE (BENADRYL) 25 mg capsule Take 50 mg by mouth every 6 (six) hours as needed. Active ferrous sulfate 325 mg (65 mg galena iron) tablet daily. Active folic acid (FOLVITE) [...] by mouth daily. 90 tablet 3 5 02/10/20 Active Additional Information Patient not taking.Reported on 05/10/2025 calcium citrate (CALCITRATE) 950 mg (200 mg elemental) tablet Take 1 tablet by mouth daily. 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 UC (ulcerative colitis) 05/05/2024 Encounters Date Type Department Care Team Description 06/22/20 Orders Only [facility] [address] [place] [address] Mya Kimbrough RN Pre-operative cardiovascular examination, high risk surgery (Primary Dx); Encounter for other preprocedural examination; Liver transplant candidate; PSC (primary sclerosing cholangitis) 06/14/20 12:00 PM EDT Nutrition [facility] [address] [place] [address] Merari Ruiz MD Witchey, Jessica R, SUDARSHAN Pre-transplant evaluation for liver transplant (Primary Dx) 06/14/20 Documentation [facility] [address] [place] [address] Deb Samayoa 06/13/20 Committee Review [facility] [address] [place] [address] 55292 Mya Kimbrough, VIDAL 06/05/20 Documentation [facility] [address] [place] [address] 10455 Codi Perez RPH 05/30/20 2:00 PM EDT Social Work [facility] Social Service Department [address] [place] [address] 84371 Merari Ruiz MD Pierre, BriannaTYSON 05/30/20 1:30 PM EDT Office Visit [facility] [address] [place] [address]120 Veronica Roe MD 05/30/20 10:30 AM EDT Nurse Only [facility] [address] [place] [address] 37047 Merari Ruiz MD Chirgwin, Tina Marie, VIDAL Need for hepatitis B screening test; Screening for human immunodeficiency virus; PSC (primary sclerosing cholangitis); Pre-transplant evaluation for liver transplant; Malnutrition; Malnutrition screen; Nutritional deficiency disorder; Sequelae of unspecified nutritional deficiency; Hepatic cirrhosis, unspecified hepatic cirrhosis type, unspecified whether ascites present; Liver transplant status 05/24/20 Documentation [facility] [address] [place] [address] 85690 Mya Kimbrough RN 05/15/20 10:15 AM EDT Anesthesia Event [facility] 4 ENDO DEPT 55 [facility], [address] [place] [address] Felix Major MD, PhD Sharon Guerin RN 05/15/20 10:00 AM EDT - 05/15/20 11:00 AM EDT Surgery [facility] 4 ENDO DEPT 55 [facility], [address] [place] [address] 88356 Geovani Sun MD ENDOSCOPIC RETROGRADE CHOLANGIOPANCREATOGRAPHY 05/15/20 9:40 AM EDT - 05/15/20 12:52 PM EDT Hospital Encounter [facility] 4 ENDO DEPT 55 [facility], [address] [place] [address] Geovani Sun MD Discharge Disposition: Home or Self Care 05/15/20 9:30 AM EDT - 05/15/20 9:39 AM EDT Hospital Encounter [facility] GI Endoscopy, Fernando 4 55 [facility], [address] [place] [address] Geovani Sun MD Discharge Disposition: Home or Self Care 05/15/20 25 Orders Only [facility] 55 [facility], [address] [place] [address] Faustino Dozier MD PSC (primary sclerosing cholangitis) (Primary Dx) 05/15/20 25 Procedure Pass [facility] [address] [facility], [address] [place] [address] 05/10/20 11:00 AM EDT Pre-Admission Testing [facility] Pre-Procedure Evaluation Department Please [place] [address] Geovani Sun MD 05/10/20 25 Telephone [facility] [address] [address] Lakeshia Wright 05/08/20 25 Telephone [facility] [address] [address] Faustino Dozier MD 05/03/20 25 Telephone [facility] [address] [address] Kamini Wayne Appointment 05/02/20 25 Telephone [facility] [address] [address] Margie Multani RN 05/02/20 25 Ancillary Orders [facility] [address] [place] [address] Merari Ruiz MD 05/01/20 25 Ancillary Orders [facility] [address] [place] [address] 12393 Merari Ruiz MD 05/01/20 25 Ancillary Orders [facility] [address] [place] [address] Merari Ruiz MD 04/30/20 25 Telephone [facility] [address] [address] Faustino Dozier MD 04/27/20 9:00 AM EDT Telemedicine [facility] [address] [address] Merari Ruiz MD PSC (primary sclerosing cholangitis) (Primary Dx); Abnormal LFTs; Total bilirubin, elevated 04/25/20 Orders Only [facility], [address] [place] [address] Faustino Dozier MD Abnormal LFTs (Primary Dx) 04/20/20 - 04/20/20 11:59 PM EDT Hospital Encounter [facility] 55 [place] [address] Merari Ruiz MD Discharge Disposition: Home or Self Care 04/12/20 1:15 PM EDT - 04/12/20 11:59 PM EDT Hospital Encounter [facility] GI Endoscopy, Fernando [address] [facility], [address] [place] [address] Van Owens MD, MPH Discharge Disposition: Home or Self Care 04/12/20 1:15 PM EDT - 04/12/20 2:15 PM EDT Surgery [facility] 4 ENDO DEPT [address] [address] Van Owens MD, MPH ENDOSCOPIC RETROGRADE CHOLANGIOPANCREATOGRAPHY 04/12/20 12:55 PM EDT Anesthesia Event [facility] 4 ENDO DEPT [address] [address] Alexis Escobar MD Famolare, Cynthia, RN 04/12/20 11:54 AM EDT - 04/12/20 4:02 PM EDT Hospital Encounter [facility] 4 ENDO DEPT [address] [address] Van Owens MD, MPH Discharge Disposition: Home or Self Care 04/12/20 Procedure Pass [facility] 4 ENDO DEPT [address] [address] 04/06/20 9:00 AM EDT Telemedicine [facility] 55 [facility], [address] [place] [address] Merari Ruiz MD Abnormal LFTs (Primary Dx); PSC (primary sclerosing cholangitis); Abnormal liver diagnostic imaging 04/06/20 25 Orders Only [facility] [address] [place] [address] Margie Multani, VIDAL Abnormal LFTs (Primary Dx); PSC (primary sclerosing cholangitis) 04/05/20 9:15 AM EDT Pre-Admission Testing [facility] Pre-Procedure Evaluation Department Please [place] [address] Unknown, Isiah, 04/05/20 25 Telephone [facility] [address] [place] [address] Margie Multani, VIDAL 04/05/20 25 Telephone [facility] G[facility]enterology [address] [address] Margie Multani, VIDAL 03/26/20 25 Telephone [facility] [address] [address] Margie Multani, VIDAL 03/26/20 25 Transcribe Orders [facility] [address] [address] Endoscopist, Next Available Total bilirubin, elevated (Primary Dx) 03/26/20 25 Telephone [facility] G[facility]enterology [address] [address] Merari Ruiz MD from Last 3 Months Family History Medical History Relation Comments Arthritis Unspecified 1 arthritis; MGM Cataracts Unspecified 1 cataract; MGM Diabetes Unspecified 1 diabetes mellitu s; MGM Glaucoma Unspecified 1 glaucoma; ? MGM Hypertension Unspecified 1 hypertension; MG M Uncoded Family History Unspecified 1 cancer; m aternal aunt ? type Uncoded Family History Unspecified 2 cardiac; MGM s/p PA angina Uncoded Family History Unspecified 3 cva; [...] - - Weight 75.8 kg (167 lb) 06/14/2025 12:00 PM EDT Height 172.7 cm (5' 7.99 ) 06/14/2025 12:00 PM E DT Body Mass Index 25.4 06/14/2025 12:00 PM EDT Plan of Treatment Upcoming Encounters Date Type Department Care Team (Late st Contact Info) Description 08/14/2025 9:00 AM EST Telemedicine [facility] [address] [place] [address], [address] [place] [address] Merari Ruiz MD 55 [facility] [place] [address] [email or web address] 08/20/2025 12:30 PM EST Office Visit [facility] [address] [facility] [address] [place] [address] Oscar Goyal MD, PhD [address] [place] [address] [email or web address] Health Maintenance Due Date Last Done Comments DEPRESSION SCREENING 1989 PNEUMOCOCCAL VACCINES (0-49 years) (2 of 2 - PCV) 11/23/2018 11/23/2017 COLOGUARD 2022 COLONOSCOPY 2022 COLORECTAL CANCER SCREENING 2022 FIT TEST 2022 FOBT 2022 07/31/2020 SIGMOIDOSCOPY 2022 VIRTUAL COLONOSCOPY 2022 INFLUENZA VACCINE (#1) 2025 , 07/20/2023, 07/21/2022, Additional history exists CREATININE LEVEL 06/13/2026 06/13/2025, 11/2024, 05/14/2025, Additional history exists SCREENING FOR DIABETES 06/13/2028 06/13/2025 LIPID PANEL 05/30/2030 05/30/2025 Adult Td,Tdap Booster [...] this topic Medical Devices Implanted Type Area Auctioneer Art Device Identifier Shelf Expiration Date Model / Serial / Lot Ivc Filter Procedures Procedure Name Priority Date/Time Associated Diagnosis Comments OUTSIDE LAB 06/14/2025 EXTERNALLY RESULTED HEMATOLOGY Routine 06/13/2025 2:20 PM EDT EXTERNALLY RESULTED CHEMISTRY Routine 06/13/2025 2:20 PM EDT TYPE AND SCREEN (ABO,RH,ANTIBODY SCREEN) Routine 05/30/2025 [...] TRACT MALIGNANCY Routine 025 5:19 PM EDT NON-SEQUINS SPOOLER CYTOLOGY, NON CSF, NON URINE Routine 05/15/2025 [...] PREP via PG - AP on 03/26 NON-SEQUINS SPOOLER CYTOLOGY, NON CSF, NON URINE Routine 04/12/2025 8:20 AM EDT MOLECULAR DIAGNOSTICS Routine 04/12/2025 12:00 AM EDT from Last 3 Months Results * Outside Lab (06/14/2025) Only the most recent of11 resultswithin the time period is included. us Scanning Interface Provider LAB BLOOD ORDERABLES Final Result * (ABNORMAL) EXTERNALLY RESULTED HEMATOLOGY (06/13/2025 2:20 PM EDT) Only the most recent of3 resultswithin the time period is included. WBC - External 6.2 4.8 - 10.8 x10*3/uL Comment:Done At [facility] RBC - External 4.06(A) 4.60 - 5.80 x10*6/uL Comment:Done At [facility] HCT - External 40.4(A) 42.0 - 52.0 % Comment:Done At [facility] HGB - External 13.0(A) 14.0 - 18.0 g/dL Comment:Done At [facility] Platelets - External 171 160 - 400 x10*3/uL Comment:Done At [facility] MCV - External 99.5(A) 80.0 - 98.0 fL Comment:Done At [facility] RDW - External 14.2 11.0 - 16.0 % Comment:Done At [facility] Eosinophils - External Neutrophils - External WBC (manual) - External PT-INR (manual) - External) PTT - External Fibrinogen - External Fibrinogen (manual) - External Hemoglobin Electrophoresis - External Hemoglobin A1c - External Absolute Lymphocytes - External PTT - External Protime - External MONO ABS - EXTERNAL BASOS ABS - EXTERNAL Immature Gran - External 06/13/2025 2:20 PM EDT us Historical Provider MD LAB BLOOD ORDERABLES Mili l Result * (ABNORMAL) EXTERNALLY RESULTED CHEMISTRY (06/13/2025 2:20 PM EDT) Only the most recent of5 resultswithin the time period is included. Sodium - External 143 135 - 145 mmol/L Comment:Done At [facility] Potassium - External 4.0 3.3 - 5.1 mmol/L Comment:Done At [facility] Chloride - External 109(A) 96 - 108 mmol/L Comment:Done At [facility] CO2 - External 25 22 - 29 mmol/L Comment:Done At [facility] BUN - External 10 9 - 16 mg/dL Comment:Done At [facility] Creatinine, serum - External 0.73 0.5 - 1.4 mg/dL Comment:Done At [facility] BUN/Creatinine - External eGFR - External Glucose - External 106 60 - 115 mg/dL Comment:Done At [facility] Calcium - External 9.3 8.4 - 10.2 mg/dL Comment:Done At [facility] Phosphorus - External Magnesium - External Albumin - External 3.9 3.5 - 5.0 g/dL Comment:Done At [facility] Bilirubin, total - External 8.1(A) 0.0 - 1.0 mg/dL Comment:Done At [facility] Bilirubin, direct - External Bilirubin (conjugated) - External Bilirubin, indirect - External Protein - External 8.0 6.5 - 8.0 g/dL Comment:Done At [facility] Alkaline Phosphatase - External 277(A) 39 - 117 U/L Comment:Done At [facility] AST - External 92(A) 5 - 37 U/L Comment:Done At [facility] ALT - External 79(A) 0 - 40 U/L Comment:Done At [facility] Amylase - External Lipase (u/L) - [...] Isoenzymes - External Cystatin C - External 06/13/2025 2:20 PM EDT Historical Provider LAB BLOOD ORDERABLES Mili l Result * Phosphatidylethanol (05/30/2025 10:36 AM EDT) PEth 16:0/18:1 (POPEth) by LC-MS/MS <10 Cutoff: 10 ng/mL [facility] Comment: (NOTE) Phosphatidylethanol (PEth) [...] (PLPEth) by LC-MS/MS <10 Cutoff: 10 ng/mL [facility] Comment: (NOTE) PEth 16:0/18:2 (PLPEth) Reference ranges are not well established PEth Interpretation Negative. [facility] Comment: (NOTE) ADDITIONAL INFORMATION This report is intended for use in clinical monitoring and management of patients. It is not intended for use in employment-related testing. This test was developed and its performance characteristics determined by [facility] in a manner consistent with CLIA requirements. This test has not been cleared or approved by the U.S. Food and Drug Administration. Blood 05/30/2025 10:3 6 AM EDT 05/30/2025 12:53 PM EDT Jodi Donnelly PA-C LAB BLOOD ORDERABLES Final Result [facility]PATH [address] [place] [address] * Hepatitis A antibody, IgG (05/30/2025 10:36 AM EDT) HAV IGG AB Positive [facility] Comment: (NOTE) REFERENCE RANGE: Unvaccinated: Negative Vaccinated: Positive A positive result indicates the presence of HAV-specific IgG antibody from either vaccination or prior exposure to hepatitis A virus Blood 05/30/2025 10:3 6 AM EDT 05/30/2025 12:49 PM EDT Jodi LANG-C LAB BLOOD ORDERABLES Final Result Performing Organization Address City/[facility]/ZIP Co de Phone Number [address] [address] * Ethanol, blood (05/30/2025 10:36 AM EDT) ETHANOL Negative Negative mg/dL [facility] Blood 05/30/2025 10:3 6 AM EDT 05/30/2025 12:53 PM EDT Jodi Gabe LANG-C LAB BLOOD ORDERABLES Final Result Performing Organization Address City/[facility]/ZIP Co de Phone Number [address] [address] * Retinol binding protein (05/30/2025 10:36 AM EDT) RETINOL BIND PROTEIN 4.2 1.5 - 6.7 mg/dL [facility] Comment: (NOTE) Test Performed by: [employer]/[place] [address] [place] [address] Blood 05/30/2025 10:3 6 AM EDT 05/30/2025 12:49 PM EDT Deborah Cowan CASH CONTROL SPECIALIST LAB BLOOD ORDERAB LES Final Result [facility] * (ABNORMAL) Cystatin C (05/30/2025 10:36 AM EDT) Cystatin C 1.38(H) 0.61 - 0.95 mg/L [facility] eGFR (Cystatin C) 53(L) >59 mL/min/1. 73m2 [facility] Comment: Cystatin C-based eGFR may differ substantially from creatinine-based eGFR in patients with abnormal muscle mass or acutely changing renal function. Please interpret together with relevant clinical features. Blood 05/30/2025 10:3 6 AM EDT 05/30/2025 12:53 PM EDT Jodi Donnelly PA-C LAB BLOOD ORDERABLES Final Result Performing Organization Address City/[facility]/ZIP Co de Phone Number [address] [address] * Mumps antibody, IgG (05/30/2025 10:36 AM EDT) MUMPS VIRUS AB IGG 76.90 AU/mL Q [place] Comment: (NOTE) AU/mL Interpretation ------- <9.00 Not consistent with immunity 9.00-10.99 Equivocal >10.99 Consistent with immunity The presence of mumps IgG antibody suggests immunization or past or current infection with mumps virus. Blood (Blood) 05/30/2025 10: 36 AM EDT 05/30/2025 12:46 PM EDT us Jodi Donnelly PA-C NON CULTURE MICROBIO LOGY Final Result Performing Organization Address City/[facility]/ZIP Co de Phone Number [employer] [place] [address] [address],[place] [address] * (ABNORMAL) Porsha-Perea virus (EBV) antibody, IgG (05/30/2025 10:36 AM EDT) EBV VCA, IgG 442.00(H) U/mL [employer] [facility] Comment: (NOTE) U/mL Interpretation ---- <18.00 Negative 18.00-21.99 Equivocal >21.99 Positive Blood (Blood) 05/30/2025 10: 36 AM EDT 05/30/2025 12:46 PM EDT Jodi Donnelly PA-C NON CULTURE MICROBIO LOGY Final Result Performing Organization Address [facility] Co de Phone Number Cell>[facility] [address] * Zinc (05/30/2025 10:36 AM EDT) Pathologist [facility] Zinc, S 66 60 - 106 mcg/dL [facility] Comment: (NOTE) ADDITIONAL INFORMATION This test was developed and its performance characteristics determined by [facility] in a manner consistent with CLIA requirements. This test has not been cleared or approved by the U.S. Food and Drug Administration. Blood 05/30/2025 10:3 6 AM EDT 05/30/2025 12:49 PM EDT Deborah Cowan CASH CONTROL SPECIALIST LAB BLOOD ORDERAB LES Final Result Performing Organization Address [facility] de Phone Number [facility] [address] [place] [address] * Rubella antibody, IgG (BW ,BWF ,DFCI ,MG ,NW ,[facility] ,[facility] ,[facility]) (05/30/2025 10:36 AM EDT) Pathologist [facility] RUBELLA AB, IGG 3.66 Index QUES [employer]-[address] [place] [address] Comment: (NOTE) Index Interpretation ----- <0.90 Not consistent with immunity 0.90-0.99 Equivocal > or = 1.00 Consistent with immunity The presence of rubella IgG antibody suggests immunization or past or current infection with rubella virus. Blood (Blood) 05/30/2025 10: 36 AM EDT 05/30/2025 12:53 PM EDT Jodi Bernal Andrzej PA-C NON CULTURE MICROBIO LOGY Final Result Performing Organization Address [facility] Co de Phone Number [employer] [address],[place] [address], [place] * Varicella-zoster (VZV) antibody, IgG (05/30/2025 10:36 AM EDT) Pathologist [facility] Varicella Ab, IgG 27.20 S/CO [employer] [address] Comment: (NOTE) Signal to Cut-off S/CO [...] AM EDT 05/30/2025 12:46 PM EDT Jodi Gabe Donnelly PA-C NON CULTURE MICROBIO LOGY Final Result Performing Organization Address [facility] de Phone Number [employer] [address] [address] * Copper, blood (05/30/2025 10:36 AM EDT) Pathologist [facility] Copper, serum 117 73 - 129 mcg/dL [facility] Comment: (NOTE) ADDITIONAL INFORMATION This test was developed and its performance characteristics determined by [facility] in a manner consistent with CLIA requirements. This test has not been cleared or approved by the U.S. Food and Drug Administration. Blood (Blood) 05/30/2025 10: 36 AM EDT 05/30/2025 12:46 PM EDT Deborah Cowan [facility] LAB BLOOD ORDERAB LES Final Result Performing Organization Address [facility] Co de Phone Number [facility] [address] [place] [address] * (ABNORMAL) Cytomegalovirus (CMV) antibody, IgG (05/30/2025 10:36 AM EDT) Pathologist [facility] Cytomegalovirus Ab, IgG >10.00(H) U/mL [facility]>[employer] [place] [address] Comment: (NOTE) U/mL Interpretation ----- <0.60 Negative 0.60-0.69 Equivocal > or = 0.70 Positive A positive result indicates that the patient has antibody to CMV. It does not differentiate between an active or past infection. Blood (Blood) 05/30/2025 10: 36 AM EDT 05/30/2025 12:46 PM EDT us Jodi Donnelly PA-C NON CULTURE MICROBIO LOGY Final Result Performing Organization Address City/[facility]/ZIP Co de Phone Number [employer] [address] [address] * (ABNORMAL) Comprehensive metabolic panel (05/30/2025 10:36 AM EDT) [facility] SODIUM 137 135 - 145 mmol/L [facility] POTASSIUM 3.7 3.4 - 5.0 mmol/L [facility] CHLORIDE 103 98 - 108 mmol/L [facility] CO2 21(L) 23 - 32 mmol/L [facility] BUN 9 8 - 25 mg/dL [facility] CREATININE 0.89 0.60 - 1.30 mg/dL [facility] Comment:[employer] GLUCOSE 76 70 - 110 mg/dL [facility] ALBUMIN 3.5 3.3 - 5.0 g/dL [facility] TOTAL PROTEIN 8.1 6.0 - 8.3 g/dL [facility] CALCIUM 9.5 8.5 - 10.5 mg/dL [facility] ALKALINE PHOSPHATASE 321(H) 45 - 115 U/L [facility] TOTAL BILIRUBIN 8.0(H) 0.0 - 1.0 mg/dL [facility] AST 89(H) 10 - 40 U/L [facility] ALT 80(H) 10 - 55 U/L [facility] GLOBULIN 4.6(H) 1.9 - 4.1 g/dL [facility] EGFR 106 >59 mL/min/1. 73m2 [facility] Comment:Estimated glomerular filtration rate calculated using the CKD-EPI refit equation. ANION GAP 13 3 - 17 mmol/L [facility] Blood 05/30/2025 10:3 6 AM EDT 05/30/2025 12:53 PM EDT Jodi Donnelly PA-C LAB BLOOD ORDERABLES Final Result [facility] [address] [place] [address] * Niacin (05/30/2025 10:36 AM EDT) Nicotinic Acid (Niacin) <5.0 Cutoff:<5 .0 ng/mL [facility] Nicotinamide 15.2 5.0 - 48.0 ng/mL [facility] Nicotinuric Acid <5.0 Cutoff:<5 .0 ng/mL [facility] Comment: (NOTE) ADDITIONAL INFORMATION Testing performed by Liquid Chromatography-Tandem Mass Spectrometry (LC-MS/MS) This test was developed and its performance characteristics determined by [facility] in a manner consistent with CLIA requirements. This test has not been cleared or approved by the U.S. Food and Drug Administration. Blood 05/30/2025 10:3 6 AM EDT 05/30/2025 12:49 PM EDT Deborah Patricioahan [facility] LAB BLOOD ORDERAB LES Final Result Performing Organization Address City/[facility]/ZIP Co de Phone Number [facility] [address] [place] [address] * Measles antibody, IgG (05/30/2025 10:36 AM EDT) Pathologist [facility] Measles Ab titer, IgG >300.00 AU/mL [facility] Comment: (NOTE) AU/mL Interpretation ----- <13.50 Not consistent with immunity 13.50-16.49 Equivocal >16.49 Consistent with immunity The presence of measles IgG suggests immunization or past or current infection with measles virus. For additional information, please refer to http://education.Marketforce One/faq/ZYG223 (This link is being provided for informational/ educational purposes only.) Blood (Blood) 05/30/2025 10: 36 AM EDT 05/30/2025 12:46 PM EDT Jodi Donnelly PA-C NON CULTURE MICROBIO LOGY Final Result Performing Organization Address [facility] Co de Phone Number [employer] [address] [id number] * T spot TB test (05/30/2025 10:36 AM EDT) [facility] T-SPOT.TB Negative Negative [employer] [facility] Comment: (NOTE) A negative test result does [...] Spot Count Corrected For Neg Control 2 [employer] Panel B Spot Count Corrected For Neg Control 3 [employer] Negative Control Passed [facility] [employer] Positive Control Passed [facility] Comment: (NOTE) For additional information, please refer to http://education.Cylance/faq/OCX935 (This link is being provided for informational/ educational purposes only.) Blood 05/30/2025 10:3 6 AM EDT 05/30/2025 12:49 PM EDT Jodi Donnelly PA-C LAB BLOOD ORDERABLES Final Result Performing Organization Address City/State/[facility] Co de Phone Number [employer] [address] [place], [place] * HIV-1/2 antigen/antibody (05/30/2025 10:36 AM EDT) [facility] HIV 1/2 AB/AG Non-Reac tive Non-Reac tive [facility] Comment: A Non-Reactive result does not rule [...] AM EDT 05/30/2025 12:49 PM EDT us Jodi Donnelly PA-C LAB BLOOD ORDERABLES Final Result Performing Organization Address City/[facility]/ZIP Co de Phone Number [address] [address] * Hepatitis C antibody, qualitative (05/30/2025 10:36 AM EDT) HCV ANTIBODY Negative Negative [facility] Comment:Antibodies to HCV no t detected. Does not exclude the possibility of exposure to HCV. Blood 05/30/2025 10:3 6 AM EDT 05/30/2025 12:49 PM EDT Jodi Donnelly PA-C LAB BLOOD ORDERABLES Final Result Performing Organization Address [facility] Co de Phone Number [address] [address] * Methylmalonic acid, serum (05/30/2025 10:36 AM EDT) METHYLMALONIC ACID 0.16 <=0.40 nmol/mL [facility] MED AND PAT+ Comment: (NOTE) ADDITIONAL INFORMATION This test was developed and its performance characteristics determined by [facility] in a manner consistent with CLIA requirements. This test has not been cleared or approved by the U.S. Food and Drug Administration. Blood 05/30/2025 10:3 6 AM EDT 05/30/2025 12:49 PM EDT Deborah Cowan [facility] LAB BLOOD ORDERAB LES Final Result Performing Organization Address City/[facility]/ZIP Co de Phone Number [facility] MED AND PAT+ [address] [place] [address] * Iron and iron binding capacity (05/30/2025 10:36 AM EDT) IRON 101 45 - 160 ug/dL [facility] IRON BINDING CAPACITY 301 230 - 404 ug/dL [facility] TRANSFERRIN SATURAT. 34 14 - 50 % [facility] Blood 05/30/2025 10:3 6 AM EDT 05/30/2025 12:53 PM EDT us Jodi Donnelly PA-C LAB BLOOD ORDERABLES Final Result [address] [address] * Ceruloplasmin (05/30/2025 10:36 AM EDT) CERULOPLASMIN 32 20 - 60 mg/dL [facility] Blood 05/30/2025 10:3 6 AM EDT 05/30/2025 12:49 PM EDT Deborah Cowan CASH CONTROL SPECIALIST LAB BLOOD ORDERAB LES Final Result Performing Organization Address City/[facility]/ZIP Co de Phone Number [address] [address] * (ABNORMAL) Toxicology screen, urine (05/30/2025 10:36 AM EDT) URINE AMPHETAMINES Negative Negative [facility] URINE BENZODIAZEPINE Positive(A) Negative [facility] URINE COCAINE METAB Negative Negative [facility] URINE OPIATES Negative Negative [facility] Comment:This assay is not se nsitive for detection of oxycodone and oxymorphone. URINE OXYCODONE Negative Negative [facility] Fentanyl, urine Negative Negative [facility] URINE CREATININE 207 mg/dL [facility] Urine (Urine) 05/30/2025 10: 36 AM EDT 05/30/2025 5:17 PM EDT us Jodirafia Donnelly PA-C URINE ORDERABLES Fin al Result Performing Organization Address [facility] Co de Phone Number [facility] [address] [place] [address] * Vitamin A (05/30/2025 10:36 AM EDT) Pathologist [facility] VITAMIN A 42.4 32.5 - 78.0 mcg/dL [facility] LAB MED/PATH SUPERIOR Comment: (NOTE) ADDITIONAL INFORMATION This test was developed and its performance characteristics determined by [facility] in a manner consistent with CLIA requirements. This test has not been cleared or approved by the U.S. Food and Drug Administration. Blood 05/30/2025 10:3 6 AM EDT 05/30/2025 12:49 PM EDT Deborah Cowan [facility] LAB BLOOD ORDERAB LES Final Result Performing Organization Address [facility] Phone Number [facility] LAB MED/PATH [address] [place] [address] * (ABNORMAL) Selenium (05/30/2025 10:36 AM EDT) Pathologist [facility] SELENIUM, SERUM 100(L) 110 - 165 mcg/L [facility] MED[facility] Comment: (NOTE) ADDITIONAL INFORMATION This test was developed and its performance characteristics determined by [facility] in a manner consistent with CLIA requirements. This test has not been cleared or approved by the U.S. Food and Drug Administration. Blood 05/30/2025 10:3 6 AM EDT 05/30/2025 12:49 PM EDT Deborah Cowan [facility] LAB BLOOD ORDERAB LES Final Result Performing Organization Address [facility] de Phone Number [facility] LAB MED/PATH [address] [place] [address] * AFP (non-maternal specimens) (05/30/2025 10:36 AM EDT) Pathologist [facility] AFP (NON-MATERNAL) 5.9 <7.9 ng/mL [facility] Comment: Note: Reference interval does not apply [...] 6 AM EDT 05/30/2025 12:53 PM EDT [employer] LANG-C LAB BLOOD ORDERABLES Final Result Performing Organization Address City/[facility]/ZIP Co de Phone Number [address] [address] * Hepatitis B core antibody, total (05/30/2025 10:36 AM EDT) Pathologist [facility] HEP B CORE AB, TOT Negative Negative [facility] Comment:A nonreactive final interpretation indicates that anti-HBc antibodies were not detected in the sample. It is possible that the individual is not infected with HBV. Blood 05/30/2025 10:3 6 AM EDT 05/30/2025 12:49 PM EDT Lion Streeter PA-C LAB BLOOD ORDERABLES Final Result [address] [address] * Syphilis antibody screen (05/30/2025 10:36 AM EDT) [facility] Syphilis Antibody Screen Non-React jeff Non-React jeff [facility] Comment: INTERPRETATION: Negative for syphilis antibodies. NOTE: This specimen was screened for syphilis using a specific immunoassay for the detection of IgG and IgM Treponema pallidum antibodies. This test has replaced the Non-Treponemal RPR as the initial screening antibody test for syphilis at [facility], because it is more sensitive and specific. Blood 05/30/2025 10:3 6 AM EDT 05/30/2025 12:49 PM EDT Jodi Donnelly PA-C LAB BLOOD ORDERABLES Final Result Performing Organization Address [facility]/ZIP Co de Phone Number [address] [address] * Vitamin C (05/30/2025 10:36 AM EDT) VITAMIN C 1.1 0.4 - 2.0 mg/dL [facility] MED[facility]PATH [facility]PER[facility] Comment: (NOTE) ADDITIONAL INFORMATION This test was developed and its performance characteristics determined by [facility] in a manner consistent with CLIA requirements. This test has not been cleared or approved by the U.S. Food and Drug Administration. Blood 05/30/2025 10:3 6 AM EDT 05/30/2025 12:39 PM EDT Deborah Cowan [facility] LAB BLOOD ORDERAB LES Final Result Performing Organization Address [facility] Co de Phone Number [facility] LAB MED/PATH SUPERIOR [address] [place] [address] * 25-OH vitamin D (05/30/2025 10:36 AM EDT) 25 OH VIT D (TOTAL) 38 20 - 80 ng/mL [facility] Blood 05/30/2025 10:3 6 AM EDT 05/30/2025 12:49 PM EDT Deborah Cowan [facility] LAB BLOOD ORDERAB LES Final Result Performing Organization Address [facility]/ZIP Co de Phone Number [address] [address] * Hepatitis B surface antibody (05/30/2025 10:36 AM EDT) HBV SURFACE AB,QUANT <3.31 mIU/mL [facility] Comment:Results less than 12 .00 mIU/mL are not consistent with protective immunity. Results of 12.00 mIU/mL or more indicate protective immunity. HBV SURFACE AB,QUAL Negative [facility] Comment:Patient is considere d not immune to HBV infection. Blood 05/30/2025 10:3 6 AM EDT 05/30/2025 12:49 PM EDT us Jodi Gabe Scherrer PA-C LAB BLOOD ORDERABLES Final Result Performing Organization Address City/[facility]/ZIP Co de Phone Number [address] [address] * Hepatitis B surface antigen (05/30/2025 10:36 AM EDT) HBV SURFACE ANTIGEN Negative Negative [facility] Blood 05/30/2025 10:3 6 AM EDT 05/30/2025 12:49 PM EDT us Jodi Gabe Scherrer PA-C LAB BLOOD ORDERABLES Final Result Performing Organization Address City/[facility]/ZIP Co de Phone Number [address] [address] * PT-INR (05/30/2025 10:36 AM EDT) Only the most recent of3 resultswithin the time period is included. PT 11.5 10.0 - 13.0 sec [facility] INR 1.0 0.9 - 1.1 [facility] Blood 05/30/2025 10:3 6 AM EDT 05/30/2025 12:53 PM EDT us Jodi Gabe Scherrer PA-C LAB BLOOD ORDERABLES Final Result Performing Organization Address City/[facility]/ZIP Co de Phone Number [address] [address] * (ABNORMAL) CBC and differential (05/30/2025 10:36 AM EDT) WBC 8.63 4.00 - 11.00 K/uL [facility] RBC 3.76(L) 4.50 - 5.90 M/uL [facility] HGB 12.3(L) 13.5 - 17.5 g/dL [facility] HCT 38.1(L) 41.0 - 53.0 % [facility] PLT 187 150 - 450 K/uL [facility] MCV 101.3(H) 80.0 - 100.0 fL [facility] MCH 32.7(H) 27.0 - 31.0 pg [facility] MCHC 32.3 32.0 - 36.0 g/dL [facility] RDW 14.1 11.5 - 14.5 % [facility] MPV 12.4(H) 8.4 - 12.0 fL [facility] NRBC 0.00 0.00 /100 WBCs [facility] ABSOLUTE NRBC 0.00 0.00 K/uL [facility] DIFF [employer] [facility] NEUTS 61.8 48.0 - 76.0 % [facility] LYMPHS 23.2 18.0 - 41.0 % [facility] MONOS 6.3 4.0 - 11.0 % [facility] EOS 7.3(H) 0.0 - 5.0 % [facility] BASOS 0.9 0.0 - 1.5 % [facility] % IMMATURE GRANS 0.5 0.0 - 0.9 % [facility] ABSOLUTE NEUTS 5.34 1.92 - 7.60 K/uL [facility] ABSOLUTE LYMPHS 2.00 0.72 - 4.10 K/uL [facility] ABSOLUTE MONOS 0.54 0.16 - 1.10 K/uL [facility] ABSOLUTE EOS 0.63(H) 0.00 - 0.50 K/uL [facility] ABSOLUTE BASOS 0.08 0.00 - 0.15 K/uL [facility] ABS IMMATURE GRANS 0.04 0.00 - 0.09 K/uL [facility] Blood 05/30/2025 10:3 6 AM EDT 05/30/2025 12:53 PM EDT Result [facility] Jodi Donnelly PA-C LAB BLOOD ORDERABLES Final Result Performing Organization Address City/[facility]/ZIP Co de Phone Number [address] [address] * Type and Screen (ABO,Rh,Antibody Screen) (05/30/2025 10:36 AM EDT) Expiration Date of Sample 06/02/2025 11:59 PM [facility] ABO O 05/30/2025 2:17 PM EDT [facility] Rh Positive 05/30/2025 2:17 PM EDT [facility] Comment:Additional Specimen for ABORH Needed for RBC Xmtch Resulting Agency [facility] Antibody Screen Negative 05/30/2025 2:22 PM EDT [facility] Blood 05/30/2025 10:3 6 AM EDT 05/30/2025 1:20 PM EDT Result [facility] Jodi Donnelly PA-C BLOOD BANK TEST ORDE RABLES Final Result Performing Organization Address [facility] Co de Phone Number [address] [address] * C-Reactive Protein (05/30/2025 10:36 AM EDT) C REACTIVE PROTEIN 7.7 <8.0 mg/L [facility] Comment:This reference range is for the evaluation of inflammation. Order High Sensitivity CRP for cardiac risk status evaluation. Blood 05/30/2025 10:3 6 AM EDT 05/30/2025 12:53 PM EDT Result [facility] Deborah Cowan CASH CONTROL SPECIALIST LAB BLOOD ORDERAB LES Final Result Performing Organization Address City/[facility]/ZIP Co de Phone Number [address] [address] * Vitamin E (05/30/2025 10:36 AM EDT) VIT E, A-TOCOPHEROL 10.7 5.5 - 17.0 mg/L [facility] Comment: (NOTE) ADDITIONAL INFORMATION This test was developed and its performance characteristics determined by [facility] in a manner consistent with CLIA requirements. This test has not been cleared or approved by the U.S. Food and Drug Administration. Blood 05/30/2025 10:3 6 AM EDT 05/30/2025 12:49 PM EDT [facility] Carli [facility] LAB BLOOD ORDERAB LES Final Result Performing Organization Address [facility] de Phone Number [facility] LAB MED/PATH [address] [place] [address] * Vitamin B1 (thiamine) (05/30/2025 10:36 AM EDT) Pathologist [facility] VITAMIN B1 134 70 - 180 nmol/L [facility] Comment: (NOTE) ADDITIONAL INFORMATION This test was developed and its performance characteristics determined by [facility] in a manner consistent with CLIA requirements. This test has not been cleared or approved by the U.S. Food and Drug Administration. Blood 05/30/2025 10:3 6 AM EDT 05/30/2025 12:47 PM EDT [facility] LAB BLOOD ORDERAB LES Final Result Performing Organization Address [facility] de Phone Number [facility] LAB MED/PATH SU[address]IOR DR [address] [place] [address] * (ABNORMAL) Vitamin B6 (05/30/2025 10:36 AM EDT) VITAMIN B6 2(L) 5 - 50 mcg/L [facility] MED/PATH [facility]PERIOR Comment: (NOTE) ADDITIONAL INFORMATION This test was developed and its performance characteristics determined by [facility] in a manner consistent with CLIA requirements. This test has not been cleared or approved by the U.S. Food and Drug Administration. Blood 05/30/2025 10:3 6 AM EDT 05/30/2025 12:53 PM EDT [facility] LAB BLOOD ORDERAB LES Final Result [facility] [address] [place] [address] * Homocysteine (05/30/2025 10:36 AM EDT) HOMOCYSTEINE, TOTAL 7.5 0 - 14.2 umol/L [facility] Blood 05/30/2025 10:3 6 AM EDT 05/30/2025 12:39 PM EDT [facility] BLO[facility] ORDERAB LES Final Result Performing Organization Address [facility] Co de Phone Number [address] [address] * Folate (05/30/2025 10:36 AM EDT) FOLIC ACID >20.0 >4.7 ng/mL [facility] Blood 05/30/2025 10:3 6 AM EDT 05/30/2025 12:46 PM EDT [facility] BLOOD ORDERAB LES Final Result Performing Organization Address City/[facility] Co de Phone Number [address] [address] * (ABNORMAL) Ferritin (05/30/2025 10:36 AM EDT) FERRITIN 718(H) 20 - 300 ug/L [facility] Blood 05/30/2025 10:3 6 AM EDT 05/30/2025 12:53 PM EDT Jodi LANG-C LAB BLOOD ORDERABLES Final Result [address] [address] * Vitamin B12 (05/30/2025 10:36 AM EDT) VITAMIN B12 >2000 >231 pg/mL [facility] Blood 05/30/2025 10:3 6 AM EDT 05/30/2025 12:53 PM EDT Deborah Cowan CASH CONTROL SPECIALIST LAB BLOOD ORDERAB LES Final Result Performing Organization Address [facility] Co de Phone Number [address] [address] * (ABNORMAL) Lipid panel (05/30/2025 10:36 AM EDT) HDL 31(L) 35 - 100 mg/dL [facility] CHOLESTEROL 231(H) <200 mg/dL [facility] TRIGLYCERIDES 186(H) 40 - 150 mg/dL [facility] LDL 163(H) 50 - 129 mg/dL [facility] CARDIAC RISK RATIO 7.5(H) 0.0 - 5.0 [facility] NON-HDL CHOLESTEROL 200 mg/dL [facility] Comment:Guidelines suggest a non-HDL cholesterol goal 30 mg/dL higher than the patient-specific LDL goal. Blood 05/30/2025 10:3 6 AM EDT 05/30/2025 12:53 PM EDT Jodi LANG-C LAB BLOOD ORDERABLES Final Result Performing Organization Address City/[facility]/ZIP Co de Phone Number [address] [address] * Biliary tract malignancy (05/15/2025 5:26 PM EDT) Only the most recent of4 resultswithin the time period is included. Pathology Pancreatobiliary FISH SEE BELOW [facility] Comment: (NOTE) Pancreatobiliary FISH Report Pancreatobiliary FISH [...] carcinoma should be pursued, as clinically indicated. Ouner Bladder Cancer Kit probes were used to detect aneuploidy for chromosomes 3, 7, and 17 via fluorescence in situ hybridization (FISH). Results from this test are intended for use in conjunction with, and not in lieu of, current standard diagnostic procedures as an aid for initial diagnosis of pancreatobiliary carcinoma or related sources. This test was developed and its performance characteristics determined by [facility]. It has not been cleared or approved by the US Food and Drug Administration. This test was performed in a CLIA certified laboratory and is intended for clinical purposes. 05/24/25 Reviewed by: Jonny Hurst 05/25/25 Verified By: Rachana Nicole M.D. electronic signature I certify that I personally conducted the evaluation on the above specimen(s) and have rendered the above interpretation(s). [facility], Department of Pathology [facility] [address] [facility] [address] [facility] [address] Pancreatobiliary FISH Comments This test has been scanned by the Umbel automated slide screener and reviewed by the pathologist (CPT 71287). Controls performed as expected. TC:102 ISCN: nuc lynette(CEP3,CEP7,9p21,CEP17)x2 Pancreatobiliary FISH Clinical History Clinical Information: No clinical information provided. Performed By: [facility] [address] [place] [id number] Section Gang: Sebastian Kaba MD, PhD CLIA Number: [id number] Pancreatobiliary FISH Specimen Source Hepatic Duct Brushing, Left [facility] 05/15/2025 5:26 PM EDT 05/15/2025 5:26 PM EDT Geovani Sun MD LAB BLOOD ORDERABLES Final Res ult Performing Organization Address City/[facility]/ZIP Co de Phone Number [address] [address] [facility] [address] [place], [place] [id number] * Chemistry Comment (05/15/2025 5:26 PM EDT) Only the most recent of4 resultswithin the time period is included. Comments (Chemistry) L. HEPATIC DUCT BRUSH [facility] 05/15/2025 5:26 PM EDT 05/15/2025 5:26 PM EDT Geovani Sun MD LAB BLOOD ORDERABLES Final Res ult Performing Organization Address City/[facility]/ZIP Co de Phone Number [address] [address] * Non-Diagnostic Cardiac Sonographer Cytology (05/15/2025 2:40 PM EDT) Only the most recent of2 resultswithin the time period is included. 05/15/2025 2:40 PM EDT 05/15/2025 2:40 PM EDT Narrative SEE NARRATIVE - 05/17/2025 10:01 [place] [address] Non Diagnostic Cardiac Sonographer Cytology Report Patient Name: GIOVANNA NDIAYE : 1975 (Age: 49) Sex: M Institution: [facility] Date of Collection: 05/15/2025 Date [...] Histiocytes. Electronically Signed Out By: Erlinda Rodriguez [facility](ASCP)MB By his/her signature above, the pathologist listed [...] ThinPrep slide made. One ThinPrep vial to [facility] for NGS. One ThinPrep vial with brush to [facility] for FISH. B. BILIARY BRUSH, RIGHT ANTERIOR HEPATIC: Received ThinPrep vial with brush labeled GIOVANNA NDIAYE, . One ThinPrep slide made. One ThinPrep vial to [facility] for NGS. One ThinPrep vial with brush to [facility] for FISH. C. BILIARY BRUSH, LEFT HEPATIC DUCT: Received ThinPrep vial with brush labeled GIOVANNA NDIAYE, . One ThinPrep slide made. One ThinPrep vial to [facility] for NGS. One ThinPrep vial with brush to [facility] for FISH. Geovani Sun MD CYTOLOGY ORDERABLES Final Resu lt SEE NARRATIVE * FL ENDOSCOPIC RETROGRADE BILIARY ONLY (05/15/2025 11:18 AM EDT) Anatomical Region Laterality Modality Abdomen Radio Fluoroscop y 05/15/2025 1:55 PM EDT Narrative 05/15/2025 1:55 PM EDT Dose (mGy): 098345 Dose Area Product (DAP): 7476.9 Dose Area Product (DAP) Units: uGy.m2 Fluoro time (min): 12.1 Radimetrics Dose Report: CTDIvol: 0 mGy. DLP: 0 mGy-cm. Procedure Note Financial Aid Director, Dictation - 05/15/2025 Dose (mGy): 806074 Dose Area Product (DAP): 7476.9 Dose Area [...] not difficult to intubate. Procedure performed by: fellow/resident/MOVEMENT ASSEMBLY FINAL INSPECTOR Anesthesiologist: Felix Major MD, PhD Fellow/Resident/MOVEMENT ASSEMBLY FINAL INSPECTOR: Carley Oropeza CRNA Airway procedure initiated at:05/15/2025 [...] observed? no us Felix Major MD, PhD [facility] ANESTHESIA Final Res ult * ENDOSCOPY PROCEDURE (05/15/2025 9:07 AM EDT) 05/15/2025 9:07 AM EDT Narrative Transcriptions Geovani Sun MD - 05/15/2025 9:07 AM EDT Gastro[facility] Endoscopy Unit Patient Name: Giovanna Ndiaye Exam Date: 05/15/2025 9:07 AM Date of : 1975 Admit Type: Outpatient Age: 49 Room: [place] [address] Gender: Male Note Status: Finalized Attending MD: [...] patient tolerated the procedure well. Findings: The land surveyor manager film was normal. The scope was advanced [...] performed the entire procedure. Geovani Sun MD, [phone] 05/15/2025 11:33:40 AM The attending physician was present throughout the entire procedure. Number of Addenda: 0 Note Initiated On: 05/15/2025 9:07 AM Peyman Dunn MD GI PROCEDURE ORDERABLES Final Result * Molecular Diagnostics (05/15/2025 12:00 AM EDT) Only the most recent of4 resultswithin the time period is included. 05/15/2025 05/16/2025 Narrative SEE NARRATIVE - 05/27/2025 9:56 [place] [address] Ambulance Officer: Steven Dent MD CLIA ID # [id number] Molecular Pathology Report Solid SNAPSHOT Assay Patient Name: GIOVANNA NDIAYE : 1975 (Age: 49) Sex: M Institution: [facility] Location: [facility] Date of Collection: 05/15/2025 Date of Reported: 05/27/2025 21:56 Results To: Geovani Sun MD CLINICAL HISTORY: Gastrointestinal Tract (Biliary Tract) Left Hepatic Duct Brushing SPECIMENS RECEIVED: A: Molecular test for Solid SNAPSHOT Assay GROSS DESCRIPTION: Biliary [place] SLIDE-BLOCK DESCRIPTION: [id number], Part C TEST - [id number] Assay INDICATION FOR TEST: Gastrointestinal Tract (Biliary Tract) Left Hepatic Duct Brushing SPECIMEN(S) TESTED: Biliary [place] ([facility], [place], [place], [place]) RESULTS: Targeted DNA next generation sequencing (NGS) using Anchored Multiplex PCR (AMP) detected no reportable variants. Copy Number Variants: Not validated for biliary brush specimens. Tumor Mutation [place]: Not validated for biliary brush specimens. INTERPRETATION: [...] number detection in genomic DNA using the Riiid platform and Illumina NextProtoExchangeq next generation sequencing (NGS). Briefly, a board-certified molecular pathologist performed microscopic review of routine H&E-stained sections using validated digital pathology or traditional microscopic workflows. The appropriate region(s) of interest were identified and circled, followed by tumor enrichment via macrodissection prior to nucleic acid extraction. The [employer] [facility] Solid Tumor v2 protocol was used to target the coding sequence of genes listed below. Illumina NextSeq 2 x 150 base paired-end sequencing reads were demutiplexed to generate FASTQ files that were transferred to the M/A-COM Analysis pipeline for read alignment to the [...] filtering, counting, and fitting based on the YuMeerDx TMB model to provide a score that [...] FOXL2, FUBP1, GNA11, GNAQ, GNAS, H3F3A, H3F3B, FKTC8S7I, RAWE9A6J, HNF1A, HRAS, IDH1, IDH2, JAK1, JAK2, JAK3, KDM6A, KDR, KEAP1, KIT, KLF4, KMT2C, KMT2D (MLL2), KRAS, LZTR1, MAP2K1 (MEK1), MAP2K2 (MEK2), MAP3K1, MDM2, MDM4, MED12, MEN1, MET, MLH1, MPL, MRE11A, MSH2, MSH3, MSH6, MTOR, MUC16, MUTYH, MYC, MYCN, NBN, NF1, NF2, NKX2-1, NOTCH1, NOTCH2, NOTCH3, NOTCH4, NPM1, NRAS, NTRK1, NTRK2, NTRK3, PALB2, PBRM1, PDGFRA, PIK3CA, PIK3CB, PIK3R1, PLCB4, PMS2, POLD1, POLE, YYL7Q2Z, ZKI1U2I, PRKD1, PTCH1, PTEN, PTPN11, RAD50, RAD51, RAD51B, RAD51C, RAD51D, RAD54L, RAF1, RB1, RET, RHOA, RICTOR, RNF43, ROS1, SDHA, SDHB, SDHC, SDHD, SETD2, SF3B1, SMAD2, SMAD4, SMARCA4, SMARCB1, SMO, SRC, SRSF2, STAG2, STK11, SUFU, TERT, TGFBR2, TP53, TP63, TRAF7, TSC1, TSC2, TSHR, U2AF1, VHL, XRCC2, XRCC3. [employer] ANALYSIS PIPELINE VERSION: 7.4.2 [employer] ANALYSIS WEB APPLICATION VERSION: 7.4.4 MATCHED ANNOTATION FROM NCBI AND EMBL-BIANCA (MARTHA) VERSION: 1.0 REFERENCES: Gopi et al. [place] Med 2014;20(12):1479-95. [PMID: [id number]] This test was developed, and its performance characteristics were determined by the [facility]. It has not [...] performed at the [facility], [facility], [address] [place] [address]. Electronically Signed Out By: Miryam Wagner PhD us Geovani Sun MD PATHOLOGY ORDERABLES Final Res ult SEE NARRATIVE * Outside Imaging Report Only (05/01/2025) us [...] AM EDT) 05/02/2025 1:36 PM EDT Impressions [facility] - 05/02/2025 3:08 PM EDT No significant change in the multifocal intrahepatic biliary ductal structures with mild upstream intrahepatic ductal dilation. ATTESTATION: I, Dr. Jeremiah Bolivar as teaching physician, have reviewed the images for this case and if necessary edited the report originally created by Wood Dill. Narrative [facility] - 05/02/2025 3:08 PM EDT MRI [...] COMPARISON: MRI ABDOMEN OUTSIDE WITH INTERPRETATION OR [id number] FINDINGS: Lower chest: No effusions. Liver: No [...] necessary edited the reportoriginally created by Wood Lawrence us Merari Ruiz MD IMG OUTSIDE IMAGING W/ INTERPR ETATION Final Result [facility] [address] [place] [address] * [place] ENDOSCOPIC RETROGRADE BILIARY ONLY (04/12/2025 2:21 PM EDT) Anatomical Region Laterality Modality Abdomen Radio Fluoroscop y 04/12/2025 9:19 PM EDT Narrative 04/12/2025 9:19 PM EDT Dose (mGy): 97639 Dose Area Product (DAP): 556852 Dose Area Product (DAP) Units: cGy.cm2 Fluoro time (min): 15.6 Radimetrics Dose Report: CTDIvol: 0 mGy. DLP: 0 mGy-cm. Procedure Note Financial Aid Director, Dictation - 04/12/2025 Dose (mGy): 39604 Dose Area Product (DAP): 771783 Dose Area Product (DAP) Units: cGy.cm2 Fluoro [...] 1975 Admit Type: Outpatient Age: 49 Room: [address] Gender: Male Note Status: Extension Worker Override Attending MD: Van Owens MD, Procedure: ERCP Indications: Jaundice Providers: Van Owens MD Referring MD: Peyman Dunn (Referring MD), Merari Ruiz MD (Referring MD) Medicines: General Anesthesia, Indomethacin 100 mg AR, zosyn 3.375mg IV x 1 Complications: No [...] patient tolerated the procedure well. Findings: The land surveyor manager film was normal. The esophagus was successfully [...] performed the entire procedure. Van Owens MD, [phone] 04/12/2025 2:51:12 PM The attending physician was present throughout the entire procedure. Number of Addenda: 0 Note Initiated On: 04/12/2025 1:26 PM Antonietaerasmo Tisha Dunn MD GI PROCEDURE ORDERABLES Edite d Result - Final from Last 3 Months [place] [id number] [place] [id number] CARE MEDICARE REPLACEMENT RICKEY OLSEN [id number] CARE MEDICARE REPLACEMENT CARE MEDICARE REPLACEMENT PRETTYRICKEY [id number] ONE CARE MEDICARE REPLACEMENT Care Teams Assistant Construction Superintendent Relationship Specialty Start Date End Date Peyman Dunn MD [address] [place] [phone] PCP - General Internal Medicine 03/06/24 Additional Source Comments The information contained in this document represents components of the legal health record. It is not the complete legal health record.[facility]
--- OUTSIDE RECORDS SUMMARY | 2025-06-22 13:05 | XMS_ITS | Encounter Summary ---
Author Organization [facility] Address [address] [place] [address] Phone Care Team Providers Care Manufacturing Weaver Name Role Phone Peyman Dunn MD Primary Care Provider [phone] Encounter Details Date Type Department Care Team (Latest Contact Info) Description 03/26/2025 Transcribe Orders [facility] [address] [place] [address], 5th [place] [address] Endoscopist, Next Available Total bilirubin, elevated (Primary [...] Description 08/14/2025 9:00 AM EST Telemedicine [facility] [address] [facility], 5th [place] [address] Merari Ruiz MD [address] [facility] [place] [address] [email or web address] 08/20/2025 12:30 PM EST Office Visit [facility] [address] [facility] [address] [place] [address] Oscar Goyal MD, PhD [address] [place] [address] [email or web address] documented as of this encounter Visit Diagnoses Diagnosis Total bilirubin, elevated- Primary documented in this encounter Care Teams Manufacturing Weaver Relationship Specialty Start Date End Date Shaun, Peyman Giles MD [address] [place] [address] Drive [address] [place] [phone] PCP - General Internal Medicine 03/06/24 documented as of this encounter Additional Source Comments The information contained in this document represents components of the legal health record. It is not the complete legal health record.[facility]
== END 2025-06-22 11:53 | disposition home or self-care (01) ==
LOC: HO.HSM 11:16
PROVIDERS: PCP Internal Medicine; Visit Provider Nurse Practitioner
DX: G25.0 Essential tremor (principal)
CPT/HCPCS: 99214

== ENCOUNTER → 2025-06-22 11:15 | Outpatient (BNVA) | payer OTHER, SELFPAY | PROVIDERS: PCP Internal Medicine; Visit Provider Nurse Practitioner | DX: G25.0 Essential tremor (principal) | CPT/HCPCS: 99212 ==

== ENCOUNTER 2025-06-27 12:05 | Outpatient (REF) | payer OTHER, SELFPAY ==
[2025-06-27 12:39] LABS: MANUAL DIFF FLAG NO
[2025-06-27 13:06] LABS: Hematocrit 41.0 % (42.0-52.0); Hemoglobin 13.6 g/dl (14.0-18.0); Imm Gran Abs Auto 0.01 X10*3/uL (0.00-0.03); Imm Gran Pct Auto 0.2 % (0.0-0.4); Lymphocytes Absolute Auto 1.5 X10*3/uL (1.2-4.9); Mean Corpuscular HGB Conc 33.2 g/dl (31.0-36.0); Mean Corpuscular Hemoglobin 32.2 pg (27.0-33.0); Mean Corpuscular Volume 97.2 fL (80.0-98.0); NRBC Abs Auto 0.000 X10*3/uL (0.0-0.012); NRBC Pct Auto 0.0 /100WBC (0.0-0.2); Platelet Count 173 X10*3/uL (160-400); Red Blood Count 4.22 X10*6/uL (4.60-5.80); White Blood Count 5.6 X10*3/uL (4.8-10.8)
[2025-06-27 13:08] LABS: INTERNATIONAL NORM RATIO 1.1 (0.9-1.1); Prothrombin Time 12.8 SEC (10.9-12.4)
[2025-06-27 13:34] LABS: Alanine Aminotransferase 94 U/L (0-40); Albumin Level 3.8 g/dL (3.5-5.0); Alkaline Phosphatase 359 U/L (39-117); Anion Gap 12 (12-20); Aspartate Amino Transferase 89 U/L (5-37); Blood Urea Nitrogen 10 mg/dL (9-16); Calcium 9.6 mg/dL (8.4-10.2); Carbon Dioxide 26 mmol/L (22-29); Chloride 108 mmol/L (96-108); Estimated Glomerular Filt Rate > 60; Potassium 3.8 mmol/L (3.3-5.1); Sodium 142 mmol/L (135-145); Total Protein 7.9 g/dL (6.5-8.0)
--- OUTSIDE RECORDS SUMMARY | 2025-06-27 13:35 | XMS_ITS ---
Author Organization [facility] Address [address] [place] [address] Phone Care Team Providers Care Hydrotechnical Specialist Name Role Phone Peyman Dunn MD Primary Care Provider [phone] Transplant Episode Liver Candidate [facility] [place]) [facility] Evaluation began on 05/30/2025 Marked as Deferred on 06/13/2025 Reason: Pending Additional Tests Liver CoordinatorMya Kimbrough RN Fax: N/A Email: [email or web address] Scores Score Value Updated Expires Exceptions/Vernon sons CPRA Not available UNOS MELD Not available MELD (Calc) 15 05/30/2025 [place] Organ Diagnosis 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 Gabi Jiménez [facility] Vehicle Check In Clerk [phone] N/A [email or web address] Faustino Dozier MD Referring Physician [phone] [email or web address] Merari Ruiz MD Referring Physician [phone] [email or web address] Veronica Roe MD Transplant Surgeon [phone] [email or web address] Deb Samayoa Needle Bar Molder N/A N/A N/A SUDARSHAN Collins Dietitian [phone] N/A [email or web address] Events Pre-Transplant Referred: 04/27/2025 Evaluation began: 05/30/2025 Committee: 06/13/2025 Appointments (05/28/2025 - 07/28/2025) When With Visit Type Description 05/30/2025 Social [...]
--- OUTSIDE RECORDS SUMMARY | 2025-06-27 13:35 | XMS_ITS | Encounter Summary ---
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) Faustino Dozier MD [address] [place] [address] Phone: tel: fax: mailto:[email or web address].[address] [phone] Phone: tel: Referral ID Status Reason Start Date Expiration Date V isits Requested Visits Authorized [id number] New Request 06/22/2025 06/22/2026 1 1 * Outpatient Procedure - New Request Specialty Diagnoses / Procedures Referred By Destiney hernandez Referred To Contact Diagnoses Pre-operative cardiovascular examination, high risk surgery Encounter for other preprocedural examination 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) Procedures Adult Echo TTE Faustino Dozier MD [address] [place] [address] Phone: tel: fax: mailto:[email or web address] Referral ID Status Reason Start Date Expiration Date V isits Requested Visits Authorized [id number] New Request 06/22/2025 1 1 * MRI/CAT Scan - New Request Specialty Diagnoses / Procedures Referred By Destiney t Referred To Contact Radiology Diagnoses Pre-operative cardiovascular examination, high risk surgery Encounter for other preprocedural examination 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 Pre-operative cardiovascular examination, high risk surgery (Primary [...] Info) Description 08/14/2025 9:00 AM EST Telemedicine [facility] [address] [place] [address] Merari Ruiz MD [address] [place] [address] [email or web address] 08/20/2025 12:30 PM EST Office Visit [address] [address] Oscar Goyal MD, PhD [address] [place] [address] [email or web address] Scheduled Orders Name Type Priority [...] Diagnoses Orde r Schedule Ambulatory referral to [facility] Infectious Disease Outpatient Referral Routine Pre-operative cardiovascular examination, high risk surgery Encounter for other preprocedural examination 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) Ordered: 06/22/2025 documented as of this encounter Visit Diagnoses Diagnosis Pre-operative cardiovascular examination, high risk surgery- Primary Pre-operative cardiovascular examination Encounter for other preprocedural examination 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 It is not the complete legal health record.[facility]
--- OUTSIDE RECORDS SUMMARY | 2025-06-27 13:35 | XMS_ITS | Encounter Summary ---
Author Organization [facility] Address [address] [place] [address] Phone Care Team Providers Care Advertising Consultant Name Role Phone Peyman Dunn MD Primary Care Provider [phone] Encounter Details Date Type Department Care Team (Late st Contact Info) Description 05/15/2025 Procedure Pass [facility] MOE 4 ENDO DEPT [address] [facility], 4th [place] [address] Social History Tobacco Use Types Packs/Day Years [...] [facility] [address] [place] [address] Merari Ruiz MD [address] [place] [address] [email or web address] 08/20/2025 12:30 PM EST Office Visit [address] [address] Oscar Goyal MD, PhD [address] [place] [phone] [email or web address] documented as of this encounter Visit Diagnoses Not on filedocumented in this encounter Care Teams Advertising Consultant Relationship Specialty Start Date End Date Peyman Dunn MD [address] [place] [phone] PCP - General Internal Medicine 03/06/24 documented as of this encounter Additional Source Comments The information contained in this document represents components of the legal health record. It is not the complete legal health record.[facility]
--- OUTSIDE RECORDS SUMMARY | 2025-06-27 13:35 | XMS_ITS | Encounter Summary ---
Author Organization [facility] Address [address] [place] [address] Phone Care Team Providers Care Scrap Burner Name Role Phone Peyman Dunn MD Primary Care Provider [phone] Encounter Details Date Type Department Care Team (Late st Contact Info) Description 04/05/2025 Telephone [facility] [address] [facility], 5th [place] [address] Margie Multani RN [address] [place] [address] [email or web address] Social History Tobacco Use Types Packs/Day [...] Info) Description 08/14/2025 9:00 AM EST Telemedicine [facility] [address] [facility] 5th [place] [address] Merari Ruiz MD [address] [place] [phone] [email or web address] 08/20/2025 12:30 PM EST Office Visit [facility] [address] [address] Oscar Goyal MD, PhD [address] [place] [address] [email or web address] documented as of this encounter Visit Diagnoses Not on filedocumented in this encounter Care Teams Scrap Burner Relationship Specialty Start Date End Date Shaun, Peyman Giles MD [address] [place] [phone] PCP - General Internal Medicine 03/06/24 documented as of this encounter Additional Source Comments The information contained in this document represents components of the legal health record. It is not the complete legal health record.[facility]
--- OUTSIDE RECORDS SUMMARY | 2025-06-27 13:35 | XMS_ITS | Clinical Summary ---
Author Organization [facility] Address [address] [place] [phone] Phone Care Team Providers Care Environmental Engineering Professor Name Role Phone Peyman Dunn MD Primary [...] Active ferrous sulfate 325 mg (65 mg cold springs iron) tablet daily. Active folic acid (FOLVITE) [...] mouth daily. 90 tablet 3 5 02/10/20 26 Active Additional Information Patient not taking.Reported on 05/10/2025 calcium citrate (CALCITRATE) 950 mg (200 mg elemental) tablet Take 1 tablet by mouth daily. 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 UC (ulcerative colitis) 05/05/2024 Encounters Date Type Department Care Team Description 5 Orders Only [facility] Trans[facility] [address] [place] [address] 220[address] Mya Kimbrough RN Pre-operative cardiovascular examination, high risk surgery (Primary Dx); Encounter for other preprocedural examination; Liver transplant candidate; PSC (primary sclerosing cholangitis) 5 12:00 PM EDT Nutrition [facility] [address] [place] [address]17 Merari Ruiz MD Witchey, Jessica R, SUDARSHAN Pre-transplant evaluation for liver transplant (Primary Dx) 5 Documentation [facility] [address] [place] [address] 65128 Deb Samayoa 5 Committee Review [facility] [address] [place] [address] 08940 Mya Kimbrough, VIDAL 5 Documentation [facility] [address] [place] [address]45 Codi Perez RPH 5 2:00 PM EDT Social Work [facility] Social Service Department [address] [place] [address] 388[address] Merari Ruiz MD Pierre, BrianTYSON schulz 5 1:30 PM EDT Office Visit [facility] [address] [place] [address] 39637 Veronica Roe MD 5 10:30 AM EDT Nurse Only [facility] [address] [place] [address] 87575 Merari Ruiz MD Chirgwin, Tina Marie, VIDAL Need for hepatitis B screening test; Screening for human immunodeficiency virus; PSC (primary sclerosing cholangitis); Pre-transplant evaluation for liver transplant; Malnutrition; Malnutrition screen; Nutritional deficiency disorder; Sequelae of unspecified nutritional deficiency; Hepatic cirrhosis, unspecified hepatic cirrhosis type, unspecified whether ascites present; Liver transplant status 5 Documentation [facility] [address] [place] [address] 84402 Mya Kimbrough RN 5 10:15 AM EDT Anesthesia Event [facility] FERNANDO 4 ENDO DEPT 55 [facility], [address] [place] [address]85 Felix Major MD, PhD Sharon Guerin RN 5 10:00 AM EDT - 5 11:00 AM EDT Surgery [facility] 4 ENDO DEPT 55 [facility], [address] [place] [address] Geovani Sun MD ENDOSCOPIC RETROGRADE CHOLANGIOPANCREATOGRAPHY 5 9:40 AM EDT - 5 12:52 PM EDT Hospital Encounter [facility] 4 ENDO DEPT 55 [facility], [address] [place] [address] 8[address] Geovani Sun MD Discharge Disposition: Home or Self Care 5 9:30 AM EDT - 5 9:39 AM EDT Hospital Encounter [facility] GI Endoscopy, Fernando 4 55 [facility], [address] [place] [address] Geovani Sun MD Discharge Disposition: Home or Self Care 5 Orders Only [facility] 55 [facility], 5th [place] [address] Faustino Dozier MD PSC (primary sclerosing cholangitis) (Primary Dx) 5 Procedure Pass [facility] [address] [facility], [address] [place] [address] 5 11:00 AM EDT Pre-Admission Testing [facility] Pre-Procedure Evaluation Department Please [place] [address] Geovani Sun MD 5 Telephone [facility] [address] [address] Lakeshia Licona 5 Telephone [facility] [address] [address] Faustino Dozier MD 5 Telephone [facility] [address] [address] Kamini Wayne Appointment 5 Telephone [facility] [address] [address] Margie Multani RN 5 Ancillary Orders [facility] [address] [place] [address] Merari Ruiz MD 5 Ancillary Orders [facility] [address] [place] [address]227 Merari Ruiz MD 5 Ancillary Orders [facility] [address] [place] [address] Merari Ruiz MD 5 Telephone [facility] Gastroenterology [facility] [address] [address] Faustino Dozier MD 5 9:00 AM EDT Telemedicine [facility] [address] [address] Merari Ruiz MD PSC (primary sclerosing cholangitis) (Primary Dx); Abnormal LFTs; Total bilirubin, elevated 5 Orders Only [facility] 55 [facility], [address] [place] [address] Faustino Dozier MD Abnormal LFTs (Primary Dx) 5 - 5 11:59 PM EDT Hospital Encounter [facility] 55 [place] [address] Merari Ruiz MD Discharge Disposition: Home or Self Care 5 1:15 PM EDT - 5 11:59 PM EDT Hospital Encounter [facility] GI Endoscopy, Fernando [address] [address] Van Owens MD, MPH Discharge Disposition: Home or Self Care 5 1:15 PM EDT - 5 2:15 PM EDT Surgery [facility] F[facility] 4 ENDO DEPT [address] [address] Van Owens MD, MPH ENDOSCOPIC RETROGRADE CHOLANGIOPANCREATOGRAPHY 5 12:55 PM EDT Anesthesia Event [facility] F[facility] 4 ENDO DEPT [address] [address] Alexis Escobar MD Famolare, Cynthia, RN 5 11:54 AM EDT - 5 4:02 PM EDT Hospital Encounter [facility] F[facility] 4 ENDO DEPT [address] [address] Van Owens MD, MPH Discharge Disposition: Home or Self Care 5 Procedure Pass [facility] F[facility] 4 ENDO DEPT [address] [address] 5 9:00 AM EDT Telemedicine [facility] 55 [facility], [address] [place] [address] Merari Ruiz MD Abnormal LFTs (Primary Dx); PSC (primary sclerosing cholangitis); Abnormal liver diagnostic imaging 5 Orders Only [facility] 55 [facility], 5th [place] [address] Margie Multani RN Abnormal LFTs (Primary Dx); PSC (primary sclerosing cholangitis) 5 9:15 AM EDT Pre-Admission Testing [facility] Pre-Procedure Evaluation Department [place] [phone] Unknown, Isiah, 5 Telephone [facility] 55 [facility], [address] [place] [address] Margie Multani, VIDAL 5 Telephone [facility] [address] [place] [address], [address] [place] [address] Margie Multani RN from Last 3 Months Family History Medical History Relation Comments Arthritis Unspecified 1 arthritis; MGM Cataracts Unspecified 1 cataract; MGM Diabetes Unspecified 1 diabetes mellitu s; MGM Glaucoma Unspecified 1 glaucoma; ? MGM Hypertension Unspecified 1 hypertension; MG M Uncoded Family History Unspecified 1 cancer; m aternal aunt ? type Uncoded Family History Unspecified 2 cardiac; MGM s/p SC angina Uncoded Family History Unspecified 3 cva; [...] Description 08/14/2025 9:00 AM EST Telemedicine [facility] [address] [place] [address] 5[address] [place] [address] Merari Ruiz MD [address] [place], [place] [address] [address] [email or web address] 08/20/2025 12:30 PM EST Office Visit [facility] [address] [address] Oscar Goyal MD, PhD [address] [place] [address] [email or web address] Health Maintenance Due Date Last Done Comments [...] this topic Medical Devices Implanted Type Area Aerographer Device Identifier Shelf Expiration Date Model / [...] TRACT MALIGNANCY Routine 025 5:19 PM EDT NON-WEEDER THINNER CYTOLOGY, NON CSF, NON URINE Routine 05/15/2025 [...] PREP via PG - AP on 03/26 NON-WEEDER THINNER CYTOLOGY, NON CSF, NON URINE Routine 04/12/2025 [...] 6.2 4.8 - 10.8 x10*3/uL Comment:Done At [facility] RBC - External 4.06(A) 4.60 - 5.80 x10*6/uL Comment:Done At [facility] HCT - External 40.4(A) 42.0 - 52.0 % Comment:Done At [facility] HGB - External 13.0(A) 14.0 - 18.0 g/dL Comment:Done At [facility] Platelets - External 171 160 - 400 x10*3/uL Comment:Done At [facility] MCV - External 99.5(A) 80.0 - 98.0 fL Comment:Done At [facility] RDW - External 14.2 11.0 - 16.0 % Comment:Done At [facility] Eosinophils - External Neutrophils - External WBC (manual) - External PT-INR (manual) - External) PTT - External Fibrinogen - External Fibrinogen (manual) - External Hemoglobin Electrophoresis - External Hemoglobin A1c - External Absolute Lymphocytes - External PTT - External Protime - External MONO ABS - EXTERNAL BASOS ABS - EXTERNAL Immature Gran - External 06/13/2025 2:20 PM EDT Historical Provider MD LAB BLOOD ORDERABLES Mili l Result * (ABNORMAL) EXTERNALLY RESULTED CHEMISTRY (06/13/2025 2:20 PM EDT) Only the most recent of5 resultswithin the time period is included. Sodium - External 143 135 - 145 mmol/L Comment:Done At [facility] Potassium - External 4.0 3.3 - 5.1 mmol/L Comment:Done At [facility] Chloride - External 109(A) 96 - 108 mmol/L Comment:Done At [facility] CO2 - External 25 22 - 29 mmol/L Comment:Done At [facility] BUN - External 10 9 - 16 mg/dL Comment:Done At [facility] Creatinine, serum - External 0.73 0.5 - 1.4 mg/dL Comment:Done At [facility] BUN/Creatinine - External eGFR - External Glucose - External 106 60 - 115 mg/dL Comment:Done At [facility] Calcium - External 9.3 8.4 - 10.2 mg/dL Comment:Done At [facility] Phosphorus - External Magnesium - External Albumin - External 3.9 3.5 - 5.0 g/dL Comment:Done At [facility] Bilirubin, total - External 8.1(A) 0.0 - 1.0 mg/dL Comment:Done At [facility] Bilirubin, direct - External Bilirubin (conjugated) - External Bilirubin, indirect - External Protein - External 8.0 6.5 - 8.0 g/dL Comment:Done At [facility] Alkaline Phosphatase - External 277(A) 39 - 117 U/L Comment:Done At [facility] AST - External 92(A) 5 - 37 U/L Comment:Done At [facility] ALT - External 79(A) 0 - 40 U/L Comment:Done At [facility] Amylase - External Lipase (u/L) [...] C - External 06/13/2025 2:20 PM EDT us Historical Provider LAB BLOOD ORDERABLES Mili l Result * Phosphatidylethanol (05/30/2025 10:36 AM EDT) PEth 16:0/18:1 (POPEth) by LC-MS/MS <10 Cutoff: 10 ng/mL [facility] MED[facility] Comment: (NOTE) Phosphatidylethanol (PEth) [...] (PLPEth) by LC-MS/MS <10 Cutoff: 10 ng/mL [facility] Comment: (NOTE) PEth 16:0/18:2 (PLPEth) Reference ranges are not well established PEth Interpretation Negative. [facility] Comment: (NOTE) ADDITIONAL INFORMATION This report is intended for use in clinical monitoring and management of patients. It is not intended for use in employment-related testing. This test was developed and its performance characteristics determined by [facility] in a manner consistent with CLIA requirements. This test has not been cleared or approved by the U.S. Food and Drug Administration. Blood 05/30/2025 10:3 6 AM EDT 05/30/2025 12:53 PM EDT Jodi Donnelly PA-C LAB BLOOD ORDERABLES Final Result [facility] MED/PATH [address] [place] [address] * Hepatitis A antibody, IgG (05/30/2025 10:36 AM EDT) HAV IGG AB Positive [facility] Comment: (NOTE) REFERENCE RANGE: Unvaccinated: Negative Vaccinated: Positive A positive result indicates the presence of HAV-specific IgG antibody from either vaccination or prior exposure to hepatitis A virus Blood 05/30/2025 10:3 6 AM EDT 05/30/2025 12:49 PM EDT Jodi Gabe LANG-C LAB BLOOD ORDERABLES Final Result [address] [address] * Ethanol, blood (05/30/2025 10:36 AM EDT) ETHANOL Negative Negative mg/dL [facility] Blood 05/30/2025 10:3 6 AM EDT 05/30/2025 12:53 PM EDT Jodi Gabe Donnelly PA-C LAB BLOOD ORDERABLES Final Result Performing Organization Address City/[facility] Co de Phone Number [address] [address] * Retinol binding protein (05/30/2025 10:36 AM EDT) RETINOL BIND PROTEIN 4.2 1.5 - 6.7 mg/dL [facility] Comment: (NOTE) Test Performed by: [employer]Pierre [address] [phone] Blood 05/30/2025 10:3 6 AM EDT 05/30/2025 12:49 PM EDT Deborah Cowan MARINE RIGGER LAB BLOOD ORDERAB LES Final Result [facility] * (ABNORMAL) Cystatin C (05/30/2025 10:36 AM EDT) Cystatin C 1.38(H) 0.61 - 0.95 mg/L [facility] eGFR (Cystatin C) 53(L) >59 mL/min/1. 73m2 [facility] Comment: Cystatin C-based eGFR may differ substantially from creatinine-based eGFR in patients with abnormal muscle mass or acutely changing renal function. Please interpret together with relevant clinical features. Blood 05/30/2025 10:3 6 AM EDT 05/30/2025 12:53 PM EDT Jodi Donnelly PA-C LAB BLOOD ORDERABLES Final Result [facility] [address] [facility] [place] [address] * Mumps antibody, IgG (05/30/2025 10:36 AM EDT) MUMPS VIRUS AB IGG 76.90 AU/mL [employer] [address] Comment: (NOTE) AU/mL Interpretation ------- <9.00 Not consistent with immunity 9.00-10.99 Equivocal >10.99 Consistent with immunity The presence of mumps IgG antibody suggests immunization or past or current infection with mumps virus. Blood (Blood) 05/30/2025 10: 36 AM EDT 05/30/2025 12:46 PM EDT Jodi PEREIRAC NON CULTURE MICROBIO LOGY Final Result Performing Organization Address [facility] Co de Phone Number [employer] [address] [address], [place] * (ABNORMAL) Porsha-Perea virus (EBV) antibody, IgG (05/30/2025 10:36 AM EDT) EBV VCA, IgG 442.00(H) U/mL [employer] [address] Comment: (NOTE) U/mL Interpretation ---- <18.00 Negative 18.00-21.99 Equivocal >21.99 Positive Blood (Blood) 05/30/2025 10: 36 AM EDT 05/30/2025 12:46 PM EDT Jodi LANG-C NON CULTURE MICROBIO LOGY Final Result Performing Organization Address [facility]/ZIP Co de Phone Number [phone] [facility] [address], [facility] * Zinc (05/30/2025 10:36 AM EDT) Zinc, S 66 60 - 106 mcg/dL [facility] Comment: (NOTE) ADDITIONAL INFORMATION This test was developed and its performance characteristics determined by [facility] in a manner consistent with CLIA requirements. This test has not been cleared or approved by the U.S. Food and Drug Administration. Blood 05/30/2025 10:3 6 AM EDT 05/30/2025 12:49 PM EDT us Deborah Cowan [facility] LAB BLOOD ORDERAB LES Final Result [facility] MED/PATH [facility] [address] [place] [address] * Rubella antibody, IgG ([facility] ,BW ,DF ,MG ,NW ,[facility] ,[facility] ,[facility]) (05/30/2025 10:36 AM EDT) Pathologist [facility] RUBELLA AB, IGG 3.66 Index [employer]UES [employer] [address] Comment: (NOTE) Index Interpretation ----- <0.90 Not consistent with immunity 0.90-0.99 Equivocal > or = 1.00 Consistent with immunity The presence of rubella IgG antibody suggests immunization or past or current infection with rubella virus. Blood (Blood) 05/30/2025 10: 36 AM EDT 05/30/2025 12:53 PM EDT us Jodi Donnelly PA-C NON CULTURE MICROBIO LOGY Final Result [employer] [address] [address], [facility] * Varicella-zoster (VZV) antibody, IgG (05/30/2025 10:36 AM EDT) Pathologist [facility] Varicella Ab, IgG 27.20 S/CO [employer] [facility] [place] [address] Comment: (NOTE) Signal to Cut-off S/CO Interpretation [...] PA-C NON CULTURE MICROBIO LOGY Final Result [employer] [address],[place] [address], [facility] * Copper, blood (05/30/2025 10:36 AM EDT) Pathologist [facility] Copper, serum 117 73 - 129 mcg/dL [facility] Comment: (NOTE) ADDITIONAL INFORMATION This test was developed and its performance characteristics determined by [facility] in a manner consistent with CLIA requirements. This test has not been cleared or approved by the U.S. Food and Drug Administration. Blood (Blood) 05/30/2025 10: 36 AM EDT 05/30/2025 12:46 PM EDT us Deborah Gillilandhieu PatricioChapo MARINE RIGGER LAB BLOOD ORDERAB LES Final Result Performing Organization Address City/[facility] Co de Phone Number [facility] [address] [place] [address] * (ABNORMAL) Cytomegalovirus (CMV) antibody, IgG (05/30/2025 10:36 AM EDT) Pathologist [facility] Cytomegalovirus Ab, IgG >10.00(H) U/mL [employer] Comment: (NOTE) U/mL Interpretation ----- <0.60 Negative 0.60-0.69 Equivocal > or = 0.70 Positive A positive result indicates that the patient has antibody to CMV. It does not differentiate between an active or past infection. Blood (Blood) 05/30/2025 10: 36 AM EDT 05/30/2025 12:46 PM EDT Jodi Donnelly PA-C NON CULTURE MICROBIO LOGY Final Result Performing Organization Address [facility] Co de Phone Number [employer] [address] [address] * (ABNORMAL) Comprehensive metabolic panel (05/30/2025 10:36 AM EDT) SODIUM 137 135 - 145 mmol/L [facility] POTASSIUM 3.7 3.4 - 5.0 mmol/L [facility] CHLORIDE 103 98 - 108 mmol/L [facility] CO2 21(L) 23 - 32 mmol/L [facility] BUN 9 8 - 25 mg/dL [facility] CREATININE 0.89 0.60 - 1.30 mg/dL [facility] Comment:Icteric GLUCOSE 76 70 - 110 mg/dL [facility] ALBUMIN 3.5 3.3 - 5.0 g/dL [facility] TOTAL PROTEIN 8.1 6.0 - 8.3 g/dL [facility] CALCIUM 9.5 8.5 - 10.5 mg/dL [facility] ALKALINE PHOSPHATASE 321(H) 45 - 115 U/L [facility] TOTAL BILIRUBIN 8.0(H) 0.0 - 1.0 mg/dL [facility] AST 89(H) 10 - 40 U/L [facility] ALT 80(H) 10 - 55 U/L [facility] GLOBULIN 4.6(H) 1.9 - 4.1 g/dL [facility] EGFR 106 >59 mL/min/1. 73m2 [facility] Comment:Estimated glomerular filtration rate calculated using the CKD-EPI refit equation. ANION GAP 13 3 - 17 mmol/L [facility] Blood 05/30/2025 10:3 6 AM EDT 05/30/2025 12:53 PM EDT Jodi Donnelly PA-C LAB BLOOD ORDERABLES Final Result Performing Organization Address City/[facility]/ZIP Co de Phone Number [address] [address] * Niacin (05/30/2025 10:36 AM EDT) Nicotinic Acid (Niacin) <5.0 Cutoff:<5 .0 ng/mL [facility] Nicotinamide 15.2 5.0 - 48.0 ng/mL [facility] Nicotinuric Acid <5.0 Cutoff:<5 .0 ng/mL [facility] Comment: (NOTE) ADDITIONAL INFORMATION Testing performed by Liquid Chromatography-Tandem Mass Spectrometry (LC-MS/MS) This test was developed and its performance characteristics determined by [facility] in a manner consistent with CLIA requirements. This test has not been cleared or approved by the U.S. Food and Drug Administration. Blood 05/30/2025 10:3 6 AM EDT 05/30/2025 12:49 PM EDT Deborah Cowan [facility] LAB BLOOD ORDERAB LES Final Result [facility] [address] [place] [address] * Measles antibody, IgG (05/30/2025 10:36 AM EDT) [facility] Measles Ab titer, IgG >300.00 AU/mL [employer] [address] Comment: (NOTE) AU/mL Interpretation ----- <13.50 Not consistent with immunity 13.50-16.49 Equivocal >16.49 Consistent with immunity The presence of measles IgG suggests immunization or past or current infection with measles virus. For additional information, please refer to http://education.Ez[employer] - A First [employer] Its Kind Flip Flop/faq/RWD374 (This link is being provided for informational/ educational purposes only.) Blood (Blood) 05/30/2025 10: 36 AM EDT 05/30/2025 12:46 PM EDT Jodi Donnelly PA-C NON CULTURE MICROBIO LOGY Final Result [employer] [address] [address] * T spot TB test (05/30/2025 10:36 AM EDT) [facility] T-SPOT.TB Negative Negative [employer] [facility] Comment: (NOTE) A negative test result does [...] Spot Count Corrected For Neg Control 2 [facility] Panel B Spot Count Corrected For Neg Control 3 [facility] Negative Control Passed [facility] Positive Control Passed [facility] Comment: (NOTE) For additional information, please refer to http://education.[employer]/faq/WTU843 (This link is being provided for informational/ educational purposes only.) Blood 05/30/2025 10:3 6 AM EDT 05/30/2025 12:49 PM EDT us Jodi Gabe 9SLIDESyarieler PA-C LAB BLOOD ORDERABLES Final Result Performing Organization Address City/[facility]/ZIP Co de Phone Number [employer] [address] [place], [place] * HIV-1/2 antigen/antibody (05/30/2025 10:36 AM EDT) [facility] HIV 1/2 AB/AG Non-Reac ti Non-ac [facility] Comment: A Non-Reactive result does not rule [...] AM EDT 05/30/2025 12:49 PM EDT us Vonageir 9SLIDESrrer PA-C LAB BLOOD ORDERABLES Final Result [facility] [address] [place] [address] * Hepatitis C antibody, qualitative (05/30/2025 10:36 AM EDT) HCV ANTIBODY Negative Negative [facility] Comment:Antibodies to HCV no t detected. Does not exclude the possibility of exposure to HCV. Blood 05/30/2025 10:3 6 AM EDT 05/30/2025 12:49 PM EDT Jodi Donnelly PA-C LAB BLOOD ORDERABLES Final Result Performing Organization Address City/[facility]/ZIP Co de Phone Number [facility] [address] [place] [address] * Methylmalonic acid, serum (05/30/2025 10:36 AM EDT) METHYLMALONIC ACID 0.16 <=0.40 nmol/mL [facility] DPT OF LAB MED AND PAT+ Comment: (NOTE) ADDITIONAL INFORMATION This test was developed and its performance characteristics determined by [facility] in a manner consistent with CLIA requirements. This test has not been cleared or approved by the U.S. Food and Drug Administration. Blood 05/30/2025 10:3 6 AM EDT 05/30/2025 12:49 PM EDT Deborah CHIRINOSP LAB BLOOD ORDERAB LES Final Result Performing Organization Address City/[facility]/ZIP Co de Phone Number [facility] DPT OF LAB MED AND PAT+ [address] [place] [address] * Iron and iron binding capacity (05/30/2025 10:36 AM EDT) IRON 101 45 - 160 ug/dL [facility] IRON BINDING CAPACITY 301 230 - 404 ug/dL [facility] TRANSFERRIN SATURAT. 34 14 - 50 % [facility] Blood 05/30/2025 10:3 6 AM EDT 05/30/2025 12:53 PM EDT us Jodi Donnelly PA-C LAB BLOOD ORDERABLES Final Result Performing Organization Address City/[facility]/ZIP Co de Phone Number [address] [address] * Ceruloplasmin (05/30/2025 10:36 AM EDT) CERULOPLASMIN 32 20 - 60 mg/dL [facility] Blood 05/30/2025 10:3 6 AM EDT 05/30/2025 12:49 PM EDT Deborah Patricioahan MARINE RIGGER LAB BLOOD ORDERAB LES Final Result Performing Organization Address [facility] Co de Phone Number [address] [address] * (ABNORMAL) Toxicology screen, urine (05/30/2025 10:36 AM EDT) URINE AMPHETAMINES Negative Negative [facility] URINE BENZODIAZEPINE Positive(A) Negative [facility] URINE COCAINE METAB Negative Negative [facility] URINE OPIATES Negative Negative [facility] Comment:This assay is not se nsitive for detection of oxycodone and oxymorphone. URINE OXYCODONE Negative Negative [facility] Fentanyl, urine Negative Negative [facility] URINE CREATININE 207 mg/dL [facility] Urine (Urine) 05/30/2025 10: 36 AM EDT 05/30/2025 5:17 PM EDT Jodi Donnelly PA-C URINE ORDERABLES Fin al Result Performing Organization Address [facility]/ZIP Co de Phone Number [address] [address] * Vitamin A (05/30/2025 10:36 AM EDT) VITAMIN A 42.4 32.5 - 78.0 mcg/dL [facility] MED/PATH [facility]PERIOR Comment: (NOTE) ADDITIONAL INFORMATION This test was developed and its performance characteristics determined by [facility] in a manner consistent with CLIA requirements. This test has not been cleared or approved by the U.S. Food and Drug Administration. Blood 05/30/2025 10:3 6 AM EDT 05/30/2025 12:49 PM EDT [facility]atorium[facility]or[facility]lin Boyce [facility] BLOOD ORDERAB LES Final Result Performing Organization Address [facility] Phone Number [facility] MED/PATH [address] [place] [address] * (ABNORMAL) Selenium (05/30/2025 10:36 AM EDT) Pathologist [facility] SELENIUM, SERUM 100(L) 110 - 165 mcg/L [facility] MED/PATH [place] Comment: (NOTE) ADDITIONAL INFORMATION This test was developed and its performance characteristics determined by [facility] in a manner consistent with CLIA requirements. This test has not been cleared or approved by the U.S. Food and Drug Administration. Blood 05/30/2025 10:3 6 AM EDT 05/30/2025 12:49 PM EDT [facility]atoriumDeborah[facility]lin Boyce [facility] BLOOD ORDERAB LES Final Result Performing Organization Address [facility] Phone Number [facility] [address] [place] [address] * AFP (non-maternal specimens) (05/30/2025 10:36 AM EDT) Pathologist [facility] AFP (NON-MATERNAL) 5.9 <7.9 ng/mL [facility] Comment: Note: Reference interval does not [...] EDT 05/30/2025 12:53 PM EDT Jodi Gabe Scherrer PA-C LAB BLOOD ORDERABLES Final Result Performing Organization Address [facility] Co de Phone Number [address] [address] * Hepatitis B core antibody, total (05/30/2025 10:36 AM EDT) HEP B CORE AB, TOT Negative Negative [facility] Comment:A nonreactive final interpretation indicates that anti-HBc antibodies were not detected in the sample. It is possible that the individual is not infected with HBV. Blood 05/30/2025 10:3 6 AM EDT 05/30/2025 12:49 PM EDT us Jodi Gabe Scherrer PA-C LAB BLOOD ORDERABLES Final Result Performing Organization Address [facility] Co de Phone Number [address] [address] * Syphilis antibody screen (05/30/2025 10:36 AM EDT) Pathologist [facility] Syphilis Antibody Screen Non-React jeff Non-React jeff [facility] Comment: INTERPRETATION: Negative for syphilis antibodies. NOTE: This specimen was screened for syphilis using a specific immunoassay for the detection of IgG and IgM Treponema pallidum antibodies. This test has replaced the Non-Treponemal RPR as the initial screening antibody test for syphilis at [facility], because it is more sensitive and specific. Blood 05/30/2025 10:3 6 AM EDT 05/30/2025 12:49 PM EDT us Jodi Gabe Scherrer PA-C LAB BLOOD ORDERABLES Final Result Performing Organization Address [facility] Co de Phone Number [address] [address] * Vitamin C (05/30/2025 10:36 AM EDT) VITAMIN C 1.1 0.4 - 2.0 mg/dL [facility] LAB MED/PATH [facility] Comment: (NOTE) ADDITIONAL INFORMATION This test was developed and its performance characteristics determined by [facility] in a manner consistent with CLIA requirements. This test has not been cleared or approved by the U.S. Food and Drug Administration. Blood 05/30/2025 10:3 6 AM EDT 05/30/2025 12:39 PM EDT Deborah Cowan [facility] LAB BLOOD ORDERAB LES Final Result [facility] LAB MED/PATH [address] [place] [address] * 25-OH vitamin D (05/30/2025 10:36 AM EDT) 25 OH VIT D (TOTAL) 38 20 - 80 ng/mL [facility] Blood 05/30/2025 10:3 6 AM EDT 05/30/2025 12:49 PM EDT Deborah Cowan [facility] LAB BLOOD ORDERAB LES Final Result [address] [address] * Hepatitis B surface antibody (05/30/2025 10:36 AM EDT) HBV SURFACE AB,QUANT <3.31 mIU/mL [facility] Comment:Results less than 12 .00 mIU/mL are not consistent with protective immunity. Results of 12.00 mIU/mL or more indicate protective immunity. HBV SURFACE AB,QUAL Negative [facility] Comment:Patient is considere d not immune to HBV infection. Blood 05/30/2025 10:3 6 AM EDT 05/30/2025 12:49 PM EDT Jodi Gabe Scheyarieler PA-C LAB BLOOD ORDERABLES Final Result [address] [address] * Hepatitis B surface antigen (05/30/2025 10:36 AM EDT) HBV SURFACE ANTIGEN Negative Negative [facility] Blood 05/30/2025 10:3 6 AM EDT 05/30/2025 12:49 PM EDT Jodi Gabe Scherrer PA-C LAB BLOOD ORDERABLES Final Result Performing Organization Address [facility] Co de Phone Number [address] [address] * PT-INR (05/30/2025 10:36 AM EDT) Only the most recent of3 resultswithin the time period is included. PT 11.5 10.0 - 13.0 sec [facility] INR 1.0 0.9 - 1.1 [facility] Blood 05/30/2025 10:3 6 AM EDT 05/30/2025 12:53 PM EDT Jodi Gabe Scherrer PA-C LAB BLOOD ORDERABLES Final Result Performing Organization Address City/[facility] Co de Phone Number [address] [address] * (ABNORMAL) CBC and differential (05/30/2025 10:36 AM EDT) WBC 8.63 4.00 - 11.00 K/uL [facility] RBC 3.76(L) 4.50 - 5.90 M/uL [facility] HGB 12.3(L) 13.5 - 17.5 g/dL [facility] HCT 38.1(L) 41.0 - 53.0 % [facility] PLT 187 150 - 450 K/uL [facility] MCV 101.3(H) 80.0 - 100.0 fL [facility] MCH 32.7(H) 27.0 - 31.0 pg [facility] MCHC 32.3 32.0 - 36.0 g/dL [facility] RDW 14.1 11.5 - 14.5 % [facility] MPV 12.4(H) 8.4 - 12.0 fL [facility] NRBC 0.00 0.00 /100 WBCs [facility] ABSOLUTE NRBC 0.00 0.00 K/uL [facility] DI[facility] METHOD Auto [facility] NEUTS 61.8 48.0 - 76.0 % [facility] LYMPHS 23.2 18.0 - 41.0 % [facility] MONOS 6.3 4.0 - 11.0 % [facility] EOS 7.3(H) 0.0 - 5.0 % [facility] BASOS 0.9 0.0 - 1.5 % [facility] % IMMATURE GRANS 0.5 0.0 - 0.9 % [facility] ABSOLUTE NEUTS 5.34 1.92 - 7.60 K/uL [facility] ABSOLUTE LYMPHS 2.00 0.72 - 4.10 K/uL [facility] ABSOLUTE MONOS 0.54 0.16 - 1.10 K/uL [facility] ABSOLUTE EOS 0.63(H) 0.00 - 0.50 K/uL [facility] ABSOLUTE BASOS 0.08 0.00 - 0.15 K/uL [facility] ABS IMMATURE GRANS 0.04 0.00 - 0.09 K/uL [facility] Blood 05/30/2025 10:3 6 AM EDT 05/30/2025 12:53 PM EDT us Jodi Donnelly PA-C LAB BLOOD ORDERABLES Final Result [facility] [address] [place] [address] * Type and Screen (ABO,Rh,Antibody Screen) (05/30/2025 10:36 AM EDT) Expiration Date of Sample 06/02/2025 11:59 PM [facility] ABO O 05/30/2025 2:17 PM EDT [facility] Rh Positive 05/30/2025 2:17 PM EDT [facility] Comment:Additional Specimen for ABORH Needed for RBC Xmtch Resulting Agency [facility] Antibody Screen Negative 05/30/2025 2:22 PM EDT [facility] Blood 05/30/2025 10:3 6 AM EDT 05/30/2025 1:20 PM EDT Jodi Donnelly PA-C BLOOD BANK TEST ORDE RABROGER Final Result [address] [address] * C-Reactive Protein (05/30/2025 10:36 AM EDT) C REACTIVE PROTEIN 7.7 <8.0 mg/L [facility] Comment:This reference range is for the evaluation of inflammation. Order High Sensitivity CRP for cardiac risk status evaluation. Blood 05/30/2025 10:3 6 AM EDT 05/30/2025 12:53 PM EDT Result [facility] Deborah Cowan MARINE RIGGER LAB BLOOD ORDERAB LES Final Result Performing Organization Address City/[facility] Co de Phone Number [address] [address] * Vitamin E (05/30/2025 10:36 AM EDT) VIT E, A-TOCOPHEROL 10.7 5.5 - 17.0 mg/L [facility] MED/PATH [address] Comment: (NOTE) ADDITIONAL INFORMATION This test was developed and its performance characteristics determined by [facility] in a manner consistent with CLIA requirements. This test has not been cleared or approved by the U.S. Food and Drug Administration. Blood 05/30/2025 10:3 6 AM EDT 05/30/2025 12:49 PM EDT Deborah Cowan MARINE RIGGER LAB BLOOD ORDERAB LES Final Result Performing Organization Address [facility] Co de Phone Number [facility] LAB MED/PATH [address] [place] [address] * Vitamin B1 (thiamine) (05/30/2025 10:36 AM EDT) [facility] VITAMIN B1 134 70 - 180 nmol/L [facility] LAB MED/PATH [facility]PERIOR Comment: (NOTE) ADDITIONAL INFORMATION This test was developed and its performance characteristics determined by [facility] in a manner consistent with CLIA requirements. This test has not been cleared or approved by the U.S. Food and Drug Administration. Blood 05/30/2025 10:3 6 AM EDT 05/30/2025 12:[address] [facility]daylin AcostaCarli [facility] LAB BLOOD ORDERAB LES Final Result Performing Organization Address [facility] de Phone Number [facility] LAB MED/PATH [address] [place] [address] * (ABNORMAL) Vitamin B6 (05/30/2025 10:36 AM EDT) [facility] VITAMIN B6 2(L) 5 - 50 mcg/L [facility] LAB MED/PATH [facility]PER[facility] Comment: (NOTE) ADDITIONAL INFORMATION This test was developed and its performance characteristics determined by [facility] in a manner consistent with CLIA requirements. This test has not been cleared or approved by the U.S. Food and Drug Administration. Blood 05/30/2025 10:3 6 AM EDT 05/30/2025 12:53 PM EDT [facility]atoriumDeborahdaylin Boyce [facility] LAB BLOOD ORDERAB LES Final Result Performing Organization Address [facility]/ZIP Co de Phone Number [facility] MED/PATH [address] [place] [address] * Homocysteine (05/30/2025 10:36 AM EDT) HOMOCYSTEINE, TOTAL 7.5 0 - 14.2 umol/L [facility] Blood 05/30/2025 10:3 6 AM EDT 05/30/2025 12:39 PM EDT us Deborah Boyce [facility] LAB BLOOD ORDERAB LES Final Result [address] [address] * Folate (05/30/2025 10:36 AM EDT) Pathologist [facility] FOLIC ACID >20.0 >4.7 ng/mL [facility] Blood 05/30/2025 10:3 6 AM EDT 05/30/2025 12:46 PM EDT us Deborah Boyce [facility] LAB BLOOD ORDERAB LES Final Result [address] [address] * (ABNORMAL) Ferritin (05/30/2025 10:36 AM EDT) FERRITIN 718(H) 20 - 300 ug/L [facility] Blood 05/30/2025 10:3 6 AM EDT 05/30/2025 12:53 PM EDT Jodi Donnelly PA-C LAB BLOOD ORDERABLES Final Result [address] [address] * Vitamin B12 (05/30/2025 10:36 AM EDT) VITAMIN B12 >2000 >231 pg/mL [facility] Blood 05/30/2025 10:3 6 AM EDT 05/30/2025 12:53 PM EDT Deborah Rogersmarcell Cowan [facility] LAB BLOOD ORDERAB LES Final Result Performing Organization Address [facility] Co de Phone Number [address] [address] * (ABNORMAL) Lipid panel (05/30/2025 10:36 AM EDT) Pathologist [facility] HDL 31(L) 35 - 100 mg/dL [facility] CHOLESTEROL 231(H) <200 mg/dL [facility] TRIGLYCERIDES 186(H) 40 - 150 mg/dL [facility] LDL 163(H) 50 - 129 mg/dL [facility] CARDIAC RISK RATIO 7.5(H) 0.0 - 5.0 [facility] NON-HDL CHOLESTEROL 200 mg/dL [facility] Comment:Guidelines suggest a non-HDL cholesterol goal 30 mg/dL higher than the patient-specific LDL goal. Blood 05/30/2025 10:3 6 AM EDT 05/30/2025 12:53 PM EDT Jodi Donnelly PA-C LAB BLOOD ORDERABLES Final Result Performing Organization Address [facility] de Phone Number [address] [address] * Biliary tract malignancy (05/15/2025 5:26 PM EDT) Only the most recent of4 resultswithin the time period is included. Pathologist [facility] Pathology Pancreatobiliary FISH SEE BELOW [employer] Comment: (NOTE) Pancreatobiliary FISH Report Pancreatobiliary FISH [...] carcinoma should be pursued, as clinically indicated. PrePlay Bladder Cancer Kit probes were used to detect aneuploidy for chromosomes 3, 7, and 17 via fluorescence in situ hybridization (FISH). Results from this test are intended for use in conjunction with, and not in lieu of, current standard diagnostic procedures as an aid for initial diagnosis of pancreatobiliary carcinoma or related sources. This test was developed and its performance characteristics determined by [employer]. It has not been cleared or approved by the US Food and Drug Administration. This test was performed in a CLIA certified laboratory and is intended for clinical purposes. 05/24/25 Reviewed by: Jonny Hurst 05/25/25 Verified By: Rachana Nicole M.D. electronic signature I certify that I personally conducted the evaluation on the above specimen(s) and have rendered the above interpretation(s). [facility], Department of Pathology [facility] [address] [facility], [place] [address] [facility] [address] Pancreatobiliary FISH Comments This test has been scanned by the [employer] automated slide screener and reviewed by the pathologist (CPT 27249). Controls performed as expected. TC:102 ISCN: nuc lynette(CEP3,CEP7,9p21,CEP17)x2 Pancreatobiliary FISH Clinical History Clinical Information: No clinical information provided. Performed By: [facility] [facility] [address] [place] [address] Braze Operator: Sebastian Kaba MD, PhD CLIA Number: [id number] Pancreatobiliary FISH Specimen Source Hepatic Duct Brushing, Left [facility] 05/15/2025 5:26 PM EDT 05/15/2025 5:26 PM EDT us Geovani Sun MD LAB BLOOD ORDERABLES Final Res ult Performing Organization Address [facility] [place] [address] [employer] [address] [place] [address] * Chemistry Comment (05/15/2025 5:26 PM EDT) Only the most recent of4 resultswithin the time period is included. Comments (Chemistry) L. HEPATIC DUCT BRUSH [facility] 05/15/2025 5:26 PM EDT 05/15/2025 5:26 PM EDT us Geovani Sun MD LAB BLOOD ORDERABLES Final Res ult Performing Organization Address City/[facility] Co de Phone Number [address] [address] * Non-Bank Reconciliator Cytology (05/15/2025 2:40 PM EDT) Only the most recent of2 resultswithin the time period is included. 05/15/2025 2:40 PM EDT 05/15/2025 2:40 PM EDT Narrative SEE NARRATIVE - 05/17/2025 10:01 [place] [address] Non Bank Reconciliator Cytology Report Patient Name: GIOVANNA NDIAYE : 1975 (Age: 49) Sex: M Institution: [facility] Location: [facility] Date of Collection: 05/15/2025 Date of [...] Histiocytes. Electronically Signed Out By: Erlinda Rodriguez [facility](ASCP)MB By his/her signature above, the pathologist [...] ThinPrep slide made. One ThinPrep vial to [facility] [address] for NGS. One ThinPrep vial with brush to [facility] for FISH. C. BILIARY BRUSH, LEFT HEPATIC DUCT: Received ThinPrep vial with brush labeled GIOVANNA NDIAYE, . One ThinPrep slide made. One ThinPrep vial to [facility] [address] for NGS. One ThinPrep vial with brush to [facility] for FISH. us Geovani Sun MD CYTOLOGY ORDERABLES Final Resu lt SEE NARRATIVE * [place] ENDOSCOPIC RETROGRADE BILIARY ONLY (05/15/2025 11:18 AM EDT) Anatomical Region Laterality Modality Abdomen Radio Fluoroscop y 05/15/2025 1:55 PM EDT Narrative 05/15/2025 1:55 PM EDT Dose (mGy): 910015 Dose Area Product (DAP): 7476.9 Dose Area Product (DAP) Units: uGy.m2 Fluoro time (min): 12.1 Radimetrics Dose Report: CTDIvol: 0 mGy. DLP: 0 mGy-cm. Procedure Note Yarn Weigher, Dictation - 05/15/2025 Dose (mGy): 948676 Dose Area Product (DAP): 7476.9 Dose Area [...] not difficult to intubate. Procedure performed by: fellow/resident/VOLCANOLOGIST Anesthesiologist: Felix Major MD, PhD Fellow/Resident/VOLCANOLOGIST: Carley Oropeza CRNA Airway procedure initiated at:05/15/2025 [...] observed? no us Felix Major MD, PhD [place] ANESTHESIA Final Res ult * ENDOSCOPY PROCEDURE (05/15/2025 9:07 AM EDT) 05/15/2025 9:07 AM EDT Narrative Transcriptions Geovani Sun MD - 05/15/2025 9:07 AM EDT Gastrointestinal Endoscopy Unit Patient Name: Giovanna Ndiaye Exam Date: 05/15/2025 9:07 AM Date of : 1975 Admit Type: Outpatient Age: 49 Room: [place] [address] Gender: Male Note Status: Finalized Attending MD: [...] patient tolerated the procedure well. Findings: The computer security coordinator film was normal. The scope was advanced [...] performed the entire procedure. Geovani Sun MD, [id number] 05/15/2025 11:33:40 AM The attending physician was present throughout the entire procedure. Number of Addenda: 0 Note Initiated On: 05/15/2025 9:07 AM Peyman Dunn MD GI PROCEDURE ORDERABLES Final Result * Molecular Diagnostics (05/15/2025 12:00 AM EDT) Only the most recent of4 resultswithin the time period is included. 05/15/2025 05/16/2025 Narrative SEE NARRATIVE - 05/27/2025 9:56 [place] [address] Plant Security Guard: Steven Dent MD CLIA ID # [id number] Molecular Pathology Report Solid SNAPSHOT Assay Patient Name: GIOVANNA NDIAYE : 1975 (Age: 49) Sex: M Institution: [facility] Location: [facility] Date of Collection: 05/15/2025 Date of Reported: 05/27/2025 21:56 Results To: Geovani Sun MD CLINICAL HISTORY: Gastrointestinal Tract (Biliary Tract) Left Hepatic Duct Brushing SPECIMENS RECEIVED: A: Molecular test for Solid SNAPSHOT Assay GROSS DESCRIPTION: Biliary Matthews SLIDE-BLOCK DESCRIPTION: [id number], Part C TEST - [id number] Assay INDICATION FOR TEST: Gastrointestinal Tract (Biliary Tract) Left Hepatic Duct Brushing SPECIMEN(S) TESTED: Biliary Matthews ([facility], [place], [place], [place]) RESULTS: Targeted DNA next generation sequencing (NGS) using Anchored Multiplex PCR (AMP) detected no reportable variants. Copy Number Variants: Not validated for biliary brush specimens. Tumor Mutation Roscoe: Not validated for biliary brush specimens. INTERPRETATION: [...] number detection in genomic DNA using the [employer] platform and Illumina NextSeq next generation sequencing (NGS). Briefly, a board-certified molecular pathologist performed microscopic review of routine H&E-stained sections using validated digital pathology or traditional microscopic workflows. The appropriate region(s) of interest were identified and circled, followed by tumor enrichment via macrodissection prior to nucleic acid extraction. The [employer] Variant[employer]lex Rowe Solid Tumor v2 protocol was used to target the coding sequence of genes listed below. Illumina NextSeq 2 x 150 base paired-end sequencing reads were demutiplexed to generate FASTQ files that were transferred to the [employer] pipeline for read alignment to the [...] FOXL2, FUBP1, GNA11, GNAQ, GNAS, H3F3A, H3F3B, QJSF3S9Z, UNMN1P1H, HNF1A, HRAS, IDH1, IDH2, JAK1, JAK2, JAK3, KDM6A, KDR, KEAP1, KIT, KLF4, KMT2C, KMT2D (MLL2), KRAS, LZTR1, MAP2K1 (MEK1), MAP2K2 (MEK2), MAP3K1, MDM2, MDM4, MED12, MEN1, MET, MLH1, MPL, MRE11A, MSH2, MSH3, MSH6, MTOR, MUC16, MUTYH, MYC, MYCN, NBN, NF1, NF2, NKX2-1, NOTCH1, NOTCH2, NOTCH3, NOTCH4, NPM1, NRAS, NTRK1, NTRK2, NTRK3, PALB2, PBRM1, PDGFRA, PIK3CA, PIK3CB, PIK3R1, PLCB4, PMS2, POLD1, POLE, XJC8I8M, XXC7G8W, PRKD1, PTCH1, PTEN, PTPN11, RAD50, RAD51, RAD51B, RAD51C, RAD51D, RAD54L, RAF1, RB1, RET, RHOA, RICTOR, RNF43, ROS1, SDHA, SDHB, SDHC, SDHD, SETD2, SF3B1, SMAD2, SMAD4, SMARCA4, SMARCB1, SMO, SRC, SRSF2, STAG2, STK11, SUFU, TERT, TGFBR2, TP53, TP63, TRAF7, TSC1, TSC2, TSHR, U2AF1, VHL, XRCC2, XRCC3. Wedge Buster ANALYSIS PIPELINE VERSION: 7.4.2 MCKEE ANALYSIS WEB APPLICATION VERSION: 7.4.4 MATCHED ANNOTATION FROM NCBI AND EMBL-BIANCA (MARTHA) VERSION: 1.0 REFERENCES: Gopi et al. [place] Med 2014;20(12):1477-38. [PMID: [id number]] This test was developed, and its performance characteristics were determined by the [facility]. It has [...] performed at the [facility], [facility], [address] [place] [address]. Electronically Signed Out By: Miryam Wagner PhD [...] AM EDT) 05/02/2025 1:36 PM EDT Impressions [facility] - 05/02/2025 3:08 PM EDT No significant change in the multifocal intrahepatic biliary ductal structures with mild upstream intrahepatic ductal dilation. ATTESTATION: I, Dr. Jeremiah Bolivar as teaching physician, have reviewed the images for this case and if necessary edited the report originally created by Wood Dill. Narrative [facility] - 05/02/2025 3:08 PM EDT MRI ABDOMEN [...] COMPARISON: MRI ABDOMEN OUTSIDE WITH INTERPRETATION OR [id number] FINDINGS: Lower chest: No effusions. Liver: No [...] OUTSIDE IMAGING W/ INTERPR ETATION Final Result [facility] [address] [place] [address] * [place] ENDOSCOPIC RETROGRADE BILIARY ONLY (04/12/2025 2:21 PM EDT) Anatomical Region Laterality Modality Abdomen Radio Fluoroscop y 04/12/2025 9:19 PM EDT Narrative 04/12/2025 9:19 PM EDT Dose (mGy): 91701 Dose Area Product (DAP): 280159 Dose Area Product (DAP) Units: cGy.cm2 Fluoro time (min): 15.6 Radimetrics Dose Report: CTDIvol: 0 mGy. DLP: 0 mGy-cm. Procedure Note Yarn Weigher, Dictation - 04/12/2025 Dose (mGy): 28214 Dose Area Product (DAP): 370065 Dose Area Product (DAP) Units: cGy.cm2 Fluoro [...] 1975 Admit Type: Outpatient Age: 49 Room: [place] [address] Gender: Male Note Status: Alliance Manager Override Attending MD: Van Owens MD, Procedure: ERCP Indications: Jaundice Providers: Van Owens MD Referring MD: Peyman Dunn (Referring ), Merari Ruiz MD (Referring MD) Medicines: General Anesthesia, Indomethacin 100 mg [place], zosyn 3.375mg IV x 1 Complications: No [...] patient tolerated the procedure well. Findings: The computer security coordinator film was normal. The esophagus was successfully [...] performed the entire procedure. Van Owens MD, [id number] 04/12/2025 2:51:12 PM The attending physician was present throughout the entire procedure. Number of Addenda: 0 Note Initiated On: 04/12/2025 1:26 PM Peyman Dunn MD GI PROCEDURE ORDERABLES Edite d Result - Final from Last 3 Months Insurance [employer] ONE CARE MEDICARE REPLACEMENT CARE MEDICARE REPLAC[place] [address] [address] [place] [address] CARE MEDICARE REPLACEMENT [facility] ONE CARE MEDICARE REPLACEMENT [facility] [place] [address] Care Teams Environmental Engineering Professor Relationship Specialty Start Date End Date Peyman Dunn MD [address] [place] [address] PCP - General Internal Medicine 03/06/24 Additional Source Comments The information contained in this document represents components of the legal health record. It is not the complete legal health record.[facility]
--- OUTSIDE RECORDS SUMMARY | 2025-06-27 13:35 | XMS_ITS | Data Portability ---
Author Organization [place] - [facility], Allergy Address [address] [place] [address] Care Team Providers Care Customs Brokerage Manager Name Role Phone SHERI HILL Primary Care Provider [phone] Assessment Encounter Date Assessment Date Assessment LastModified by Organization Details LastModified Time 07/10/2024 07/10/2024 Right tympanic membrane is intact with aerated middle ear space. Left T-tube is in good position and patent. Patient currently pleased with his auditory performance and how his ears are feeling in general. We will continue with observation of this tube and have him follow-up with physician office support assistant in 6 months. [email or web address] Not available 07/10/2024 11:30:21 01/08/2025 01/08/2025 49-year-old male with extensive history of ETD presents for reevaluation. On examination the right drum remains scarred but with well aerated middle ear space. No retraction or over insufflation. Left tube remains in place and patent. Continue observation and follow-up in 6 months. [email or web address] Not available 01/08/2025 11:36:41 Plan of Treatment [...] and Address Organization Details Recorded Time Otorrhea [id number] Completed 201304/28/2024 Otorrhea ; Note: Date Diagnose d: 4 3:36 PM (388.60) Not Available [facility] 4 02:20:10 Abnormal granulat ion tissue 78355553 Completed 201304/28/2024 Other abnormal granulat ion tissue; Note: Date Diagnose d: 4 3:36 PM (701.5) Not Available [facility] 4 02:19:39 Conducti ve hearing loss, bilatera l 017903309 Active 2014 Conducti ve HL, bilatera l; Note: Date Diagnose d: 5 9:19 AM (389.06) Not Available [facility] 4 02:19:31 Conducti ve hearing loss 38829028 Active 2015 Conducti ve hearing loss, unilater al, right ear, with unrestri cted hearing on the contrala teral side; Note: Date Diagnose d: 6 4:27 PM (H90.11) Not Available [facility] 4 02:20:11 Bilatera l disorder of Eustachi an tubes [id number] 04550 Active 2015 Other specifie d disorder s of Eustachi an tube, bilatera l; Note: Date Diagnose d: 6 3:50 PM (H69.83) Not Available [facility] 4 02:19:34 Sensorin eural hearing loss 02395266 Active 2015 Sensorin eural hearing loss, unilater al, left ear, with unrestri cted hearing on the contrala teral side; Note: Date Diagnose d: 6 3:50 PM (H90.42) Not Available [facility] 4 02:19:20 Chronic serous otitis media of right ear 253369671 Active 2016 Chronic serous otitis media, right ear; Note: Changed from H65.01 to H65.21 (10/20/19 19 10:45 AM) , Date Diagnose d: 7 3:35 PM (H65.01) Not Available [facility] 4 02:19:22 Marginal perforat ion of tympanic membrane 68468813 Completed 201804/28/2024 Other marginal perforat ions of tympanic membrane , left ear; Note: Date Diagnose d: 9 3:56 PM (H72.2X2 ) Not Available [facility] 4 02:19:34 Mixed conducti ve and sensorin eural hearing loss, bilatera l 829415546 Active 2018 Mixed conducti ve and sensorin eural hearing loss, bilatera l; Note: Date Diagnose d: 9 10:40 AM (H90.6) Not Available [facility] 4 02:19:40 Impacted cerumen in right ear 35779777826 45533 Active 2018 Impacted cerumen, right ear; Note: Date Diagnose d: 07/12/20 19 1:19 PM (H61.21) Not Available [facility] 4 02:20:05 Abnormal auditory percepti on 92017548 Active 2019 Other abnormal auditory percepti ons, bilatera l; Note: Date Diagnose d: 0 1:35 PM (H93.293 ) Not Available [facility] 4 02:19:45 Acute myringit is of left ear 72381512929 36691 Active 2019 Acute myringit is, left ear; Note: Date Diagnose d: 0 9:33 AM (H73.002 ) Not Available [facility] 4 02:19:45 Chronic mucoid otitis media of left middle ear 71728980885 58451 Active 2019 Chronic mucoid otitis media, left ear; Note: Date Diagnose d: 0 9:04 AM (H65.32) Not Available [facility] 4 02:19:17 Chronic left myringit is 42979462904 30246 Completed 201904/28/2024 Chronic myringit is, left ear; Note: Date Diagnose d: 07/11/20 20 9:44 AM (H73.12) Not Available [facility] 4 02:20:02 Otorrhea of left ear 96497586621 55020 Active 2019 Otorrhea , left ear; Note: Date Diagnose d: 07/11/20 20 9:45 AM (H92.12) Not Available [facility] 4 02:20:06 Obstruct jeff sleep apnea syndrome 82374503 Active 2021 Obstruct jeff sleep apnea (adult) (pediatr ic); Note: Date Diagnose d: 2 2:19 PM (G47.33) Not Available [facility] 4 02:19:44 Mixed conducti ve and sensorin eural hearing loss of left ear 13908982086 107 Active 2021 Mixed conducti ve and [...] 2 2:22 PM (H90.A32 ) Not Available [facility] 4 02:19:34 Sensorin eural hearing loss in right ear 67494374025 100 Active 2021 Sensorin eural hearing loss, unilater al, right ear, with restrict ed hearing on the contrala teral side; Note: Date Diagnose d: 2 2:22 PM (H90.A21 ) Not Available [facility] 4 02:19:55 Problem Notes None recorded. Medical [...] mg tablet 07/10 completed Medicati on ID: [id number] D uration Value: 30 Brand Name: warfarin [...] topical cream 07/11 completed Medicati on ID: [id number] D uration Value: 1 Brand Name: permethr in Send Method: E-Prescr ibed Sub s Allowed: subs OK Speci al Instruct ion: SERGIO FROM HEAD TO TOE AND RINSE AFTER 12 H UTD [facility] cation nericNam e: permethr in Not Available [...] mg tablet 06/17 completed Medicati on ID: [id number] B rand Name: hydromor phone Se nd Method: E-Prescr ibed Sub s Allowed: subs OK Medic ationGen ericName : hydromor phone Not Available Not Available Not Available Lovenox 100 mg/mL subcutane ous syringe 06/17 completed Medicati on ID: [id number] B rand Name: Lovenox Send Method: E-Prescr ibed Sub s Allowed: subs OK Medic ationGen ericName : Lovenox Not Available Not Available Not Available ascorbic acid (vitamin C) 500 mg tablet TAKE 1 TABLET BY MOUTH ONCE DAILY active Not Available Not Available No t Available Cartia XT 120 mg capsule,e xtended release 06/17 completed Medicati on ID: [id number] D uration Value: 30 Brand Name: Cartia [...] mg tablet 07/11 completed Medicati on ID: [id number] D uration Value: 30 Brand Name: warfarin [...] mg tablet 07/11 completed Medicati on ID: [id number] D uration Value: 30 Brand Name: oxcarbaz [...] layed release 06/17 completed Medicati on ID: [id number] D uration Value: 30 Brand Name: bisacody l Send Method: E-Prescr ibed Sub s Allowed: subs OK Speci al Instruct ion: TK 1 T PO BID PRN Medi cationGe nericNam e: bisacody l Not Available Not Available Not Available mirtazapi ne 15 mg tablet 10/20 completed Medicati on ID: [id number] D uration Value: 30 Reason: () Brand Name: mirtazap ine Send Method: E-Prescr ibed Sub s Allowed: subs OK Speci al Instruct ion: TK 1 T PO QHS Medi cationGe nericNam e: mirtazap ine Not Available Not Available Not Available gabapenti n 100 mg capsule 07/10 completed Medicati on ID: [id number] B rand Name: gabapent in Send Method: E-Prescr ibed Sub s Allowed: subs OK Medic ationGen ericName : gabapent in Not Available Not Available Not Available propranol ol 20 mg tablet TAKE 1 AND 1/2 TABLETS BY MOUTH TWICE DAILY active Not Available Not Available No t Available topiramat e 100 mg tablet 10/20 completed Medicati on ID: [id number] D uration Value: 30 Reason: () Brand Name: topirama te Send Method: E-Prescr ibed Sub s Allowed: subs OK Speci al Instruct ion: TK 1 T PO BID Medi cationGe nericNam e: topirama te Not Available Not Available Not Available multivita min capsule active Medicati on ID: 407447 B rand Name: multivit green Sen d Method: E-Prescr ibed Sub s Allowed: subs OK Medic ationGen ericName : multivit green Not Available Not Available Not Available sertralin e 50 mg tablet 07/10 completed Medicati on ID: [id number] B rand Name: sertrali ne Send Method: E-Prescr ibed Sub s Allowed: subs OK Medic ationGen ericName : sertrali ne Not Available Not Available Not Available naproxen 500 mg tablet TAKE 1 TABLET BY MOUTH TWICE DAILY 01/08 completed Not Available Not Available Not Available Vitamin B-12 1,000 mcg tablet active Medicati on ID: [id number] B rand Name: Vitamin B-12 Sen d [...] drops,manan p 12/11 completed Medicati on ID: [id number] Pr escribed By Name: EMELIA Gipson nd Name: neomycin -polymyx in-HC Se nd Method: E-Prescr ibed Sub s Allowed: subs OK Speci al Instruct ion: 4 drops left ear BID X 14 days Med icationG enericNa me: neomycin -polymyx in-HC Not Available Not Available Not Available TobraDex 0.3 %-0.1 % eye drops,manan pension 07/10 completed Medicati on ID: [id number] D uration Value: 10 Prescri bed By Name: Saúl Hammond nd Name: TobraDex Send Method: E-Prescr ibed Sub s Allowed: subs OK Speci al Instruct ion: Instill 4 drops in the affected ear twice a day for 10 days [facility] TobraDex Not Available Not Available Not Available bupropion HCl SR 200 mg tablet,12 hr sustained -release 10/20 completed Medicati on ID: [id number] D uration Value: 30 Reason: () Brand [...] right ear 07/10 completed Medicati on ID: [id number] D uration Value: 7 Prescri bed By [...] aerosol inhaler 07/11 completed Medicati on ID: [id number] D uration Value: 16 Brand Name: ProAir [...] unit) tablet 07/10 completed Medicati on ID: [id number] B rand Name: cholecal ciferol (vitamin D3) Send Method: E-Prescr ibed Sub s Allowed: subs OK Medic ationGen ericName : cholecal ciferol (vitamin D3) Not Available Not Available Not Available Eliquis 5 mg tablet TAKE 1 TABLET BY MOUTH TWICE DAILY active Not Available Not Available No t Available potassium chloride ER 20 mEq tablet,ex tended release 07/11 completed Medicati on ID: [id number] D uration Value: 30 Brand Name: gracia mcpherson chloride Send Method: E-Prescr ibed Sub s Allowed: subs OK Speci al Instruct ion: TK 1 T PO QD [facility] gracia mcpherson chloride Not Available Not Available Not Available Vitals Date Recorded Body height Body mass index (BMI) Body weight Provider Name and Address Organization Details Last Updated DateTime 01/08/2025 172.72 cm 27.4 kg/m2 49387.63 g Abby Nagel [place] - [facility] [...] ICD10 Code Diagnosis IMO Codes Diagnosis Note [id number] TOMER DUNBAR MD [facility] [address] [phone] 07/10/2024 09:41:31 07/10/2024 11:29:44 Bilateral disorder of Eustachian tubes 4450500273 420986 H69.83 21333 ARDEN SILVA PA-C [facility] [address] [place] [address] 01/08/2025 10:53:21 01/08/2025 11:10:01 Bilateral disorder of Eustachian tubes 2760744704 540203 H69.83 Health Concerns Section Related Observation LastModified by Organization Detai ls LastModified Time None Recorded Concern Status LastModified by Organization Details LastModified Time None Recorded Advance Directives Directive None Recorded Payers Insurance Date Sequence Insurance Name Policy Number Policy Fajardo Covered Member ID Fajardo Member ID Guarantor Name 01/01/2025 1 [facility] - DOS ON OR AFTER 2022 - MEDICARE [place]VANTAGE [place] (MEDICARE REPLACEMENT/ADV ANTAGE - PPO) Kailash Ndiaye [id number] Kailash Ndiaye 01/07/2025 1 [facility] - DOS ON OR AFTER 2022 - ONE CARE (MEDICARE REPLACEMENT/ADV ANTAGE - HMO) Kailash Ndiaye [id number] Kailash Ndiaye Notes Date Note Type Note [...] been feeling much better. TOMER DUNBAR MD [address] [place] [address], [place], [address], [facility] 07/10/2024 11:30:57 01/08/2025 text/html ROS as [...] ears frequently. Hearing stable. TOMER DUNBAR MD [address] [place] [address], [place], [address], [facility] 01/09/2025 16:38:34
--- OUTSIDE RECORDS SUMMARY | 2025-06-27 13:35 | XMS_ITS | Clinical Summary ---
Author Organization [employer] Address [address] [place] [address] Care Team Providers Care Senior Grants Officer Name Role Phone Unavailable Primary Care Provider [...] [facility] [address] [place] [address] Kem Estrada DDS Dental caries (Primary Dx) [...] Patient Date of Phone Billing Address Personal/Family [address] [place] [id number] [facility] MEDICAID [facility]
--- OUTSIDE RECORDS SUMMARY | 2025-06-27 13:35 | XMS_ITS | Encounter Summary ---
Author Organization [facility] Address [address] [place] [address] Phone Care Team Providers Care Spectral Scientist Name Role Phone Peyman Dunn MD Primary Care Provider [phone] Encounter Details Date Type Department Care Team (Late st Contact Info) Description 04/05/[address] [facility] [address] 5th [place] [address] Margie Multani RN [address] [place] [address] [email or web address] Social History Tobacco Use Types Packs/Day [...] Info) Description 08/14/2025 9:[address] [facility] [address] [facility] [address] [place] [address] Merari Ruiz MD [address] [place] [id number] [email or web address] 08/20/2025 12:30 PM EST Office Visit [facility] [address] [address] Oscar Goyal MD, PhD [address] [place] [address] [email or web address] documented as of this encounter Visit Diagnoses Not on filedocumented in this encounter Care Teams Spectral Scientist Relationship Specialty Start Date End Date Shaun, Peyman Giles MD [address] [place] [phone] PCP - General Internal Medicine 03/06/24 documented as of this encounter Additional Source Comments The information contained in this document represents components of the legal health record. It is not the complete legal health record.[facility]
--- OUTSIDE RECORDS SUMMARY | 2025-06-27 13:35 | XMS_ITS | Encounter Summary ---
Author Organization [facility] Address [id number] [place] [address] Phone Care Team Providers Care Circus Artist Name Role Phone Peyman Dunn MD Primary Care Provider [phone] Encounter Details Date Type Department Care Team (Late st Contact Info) Description 06/13/2025 Committee Review [facility] [address] [facility] [address] [place] [address] Mya Kimbrough RN [address] [place] [address] [email or web address] Social History Tobacco Use Types Packs/Day Years [...] as of this encounter Progress Notes * Damaso Zarate MD - 06/19/2025 4:24 PM EDT Liver Committee Review Note Evaluation Date: 05/30/2025 Organ being evaluated for: Liver Recipient Transplant Phase: Evaluation Transplant Status: Active Slip Dumper: MYA KIMBROUGH BMI: Estimated body mass index is 25.4 kg/m?? as calculated from the following: Height as of 06/14/25: 172.7 cm (5' 7.99 ). Weight as of 06/14/25: 75.8 kg (167 lb). History Past Medical History: Diagnosis Date Anemia 2009 Anxiety Continuous positive airway pressure dependence 2014 Deep vein thrombosis (DVT) 2011 LLE Depressive disorder DVT of lower extremity, bilateral 2011 Gastroesophageal reflux disease 2000 History of transfusion Hyperlipidemia 2015 Hypertensive disorder 2010 Jaundice 2024 Jaundice Liver disease Sleep apnea 2014 CPAP, not using Snoring 1976 TIA (transient ischemic attack) Visual impairment Past Surgical History: Procedure Laterality Date ABDOMINAL SURGERY 2021 COLON SURGERY ENDOSCOPIC RETROGRADE CHOLANGIOPANCREATOGRAPHY N/A 05/15/2025 Performed by Geovani Sun MD at [facility] 4 ENDOSCOPY ENDOSCOPIC RETROGRADE CHOLANGIOPANCREATOGRAPHY N/A 04/12/2025 Performed by Van Owens MD, MPH at [place] [address] ENDOSCOPY EYE SURGERY GASTRECTOMY HERNIA REPAIR IVC FILTER INSERTION Problem List: Patient Active Problem List Diagnosis UC (ulcerative colitis) PSC (primary sclerosing cholangitis) Medications: Current Outpatient Medications Medication Sig Dispense Refill Last Dispense acetaminophen (TYLENOL) 325 mg tablet Take 325 mg by mouth every 4 (four) hours as needed. Unknown (patient-reported) ascorbic Acid (VITAMIN C) 500 mg CpER Take 500 mg by mouth daily. Unknown (patient-reported) atorvastatin (LIPITOR) 20 MG tablet Take 20 mg by mouth nightly at bedtime. Unknown (patient-reported) calcium citrate (CALCITRATE) 950 mg (200 mg elemental) tablet Take 1 tablet by mouth daily. Unknown(patient-reported) cholecalciferol (VITAMIN D3) 2,000 unit capsule 1 capsule. Unknown (patient-reported) cyanocobalamin, vitamin B-12, 1000 MCG tablet Take 1,000 mcg by mouth. Unknown (patient-reported) diphenhydrAMINE (BENADRYL) 25 mg capsule Take 50 mg by mouth every 6 (six) hours as needed. Unknown(patient-reported) ELIQUIS 5 mg tablet Take 5 mg by mouth 2 (two) times a day. Unknown (patient-reported) fenofibrate (TRICOR) 145 MG tablet Take 1 tablet (145 mg total) by mouth daily. (Patient not taking: Reported on 05/10/2025) 90 tablet 3 Unknown (outside pharmacy) ferrous sulfate 325 mg (65 mg [place] iron) tablet daily. Unknown (patient-reported) folic acid (FOLVITE) 1 MG tablet 1 tablet Orally Once a day Unknown (patient-reported) omeprazole (PRILOSEC) 20 MG capsule Take 20 mg by mouth daily. Unknown (patient-reported) propranoloL (INDERAL) 10 MG immediate release tablet Take 30 mg by mouth 2 (two) times a day. Unknown (patient-reported) sertraline (ZOLOFT) 100 MG tablet 1 tablet Orally Once a day Unknown (patient-reported) tiZANidine (ZANAFLEX) 4 MG capsule Take 4 mg by mouth nightly at bedtime as needed. Unknown (patient-reported) ursodioL (ACTIGALL) 500 MG tablet Take 500 mg by mouth 2 (two) times a day. Take 1 tablet in the morning and 2 tablets in the evening Unknown (patient-reported) zolpidem (AMBIEN) 5 MG tablet Take 12.5 mg by mouth nightly at bedtime as needed. Unknown (patient-reported) No current facility-administered medications for this visit. This patient is being presented with confirmation the following have been completed and are in the patient???s record: Coordinator education documentation, Social Work Consult, Pharmacy consult, and Informed Consent The Liver Transplant Selection Committee met on 06/13/2025 and was attended by members of the Transplant Team including Transplant surgery, Transplant medicine, psychiatry, nursing, personal financial counselor, pharmacy, nutrition, and social service. Please refer to Encounter Report in for specific personnel and Committee Review form details. Summary: All labs, imaging and relevant data was reviewed. Mr. Ndiaye needs to complete a TTE, MIBI,transplant ID and psychiatry consults. Based on the program???s selection criteria, the committee has reached the following decision regarding the candidacy of Kailash Ndiaye for Liver Transplant Recipient at the [facility]: Deferred. documented in this encounter Plan of Treatment Upcoming Encounters Date Type Department Care Team (Late st Contact Info) Description 08/14/2025 9:00 AM EST Telemedicine [facility] [address] [place] [address] Merari Ruiz MD [address] [place] [phone] [email or web address] 08/20/2025 12:30 PM EST Office Visit [address] [address] Oscar Goyal MD, PhD [address] [place] [address] [email or web address] documented as of this encounter Visit Diagnoses Not on filedocumented in this encounter Care Teams Circus Artist Relationship Specialty Start Date End Date Peyman Dunn MD [address] [place] [address] Drive [address] [place] [phone] PCP - General Internal Medicine 03/06/24 documented as of this encounter Additional Source Comments The information contained in this document represents components of the legal health record. It is not the complete legal health record.[facility]
--- OUTSIDE RECORDS SUMMARY | 2025-06-27 13:36 | XMS_ITS | Encounter Summary ---
Author Organization [facility] Address [address] [place] [address] Phone Care Team Providers Care Four Slide Operator Name Role Phone Peyman Dunn MD Primary Care Provider [phone] Encounter Details Date Type Department Care Team (Latest Contact Info) Description 03/26/2025 Transcribe Orders [facility] [address] [place] [address], 5th [place] [address] Endoscopist, Next Available Total bilirubin, elevated (Primary [...] Info) Description 08/14/2025 9:00 AM EST Telemedicine [facility] [address] [facility], 5th [place] [address] Merari Ruiz MD [address] [facility] [place] [address] [email or web address] 08/20/2025 12:30 PM EST Office Visit [facility] [address] [facility] [address] [place] [address] Oscar Goyal MD, PhD [address] [place] [address] [email or web address] documented as of this encounter Visit Diagnoses Diagnosis Total bilirubin, elevated- Primary documented in this encounter Care Teams Four Slide Operator Relationship Specialty Start Date End Date Shaun, Peyman Giles MD [address] [place] [address] Drive [address] [place] [phone] PCP - General Internal Medicine 03/06/24 documented as of this encounter Additional Source Comments The information contained in this document represents components of the legal health record. It is not the complete legal health record.[facility]
--- OUTSIDE RECORDS SUMMARY | 2025-06-27 13:36 | XMS_ITS | Encounter Summary ---
Author Organization [facility] Address [address] [facility] [address] [place] [address] Phone Care Team Providers Care Liability Claims Adjuster Name Role Phone Peyman Dunn MD Primary Care Provider [phone] Encounter Details Date Type Department Care Team (Late st Contact Info) Description 07/04/2024 Procedure Pass MRI, [facility] - [address], [address] [place] [id number] Social History Tobacco Use Types Packs/Day Years [...] Info) Description 08/14/2025 9:00 AM EST Telemedicine [facility] [address] [place] [address], [address] [place] [address] Merari Ruiz MD [address] [facility] [place] [address] [email or web address] 08/20/2025 12:30 PM EST Office Visit [facility] [address] [facility] [address] [place] [address] Oscar Goyal MD, PhD [address] [place] [address] [email or web address] documented as of this encounter Visit Diagnoses Not on filedocumented in this encounter Care Teams Liability Claims Adjuster Relationship Specialty Start Date End Date Shaun, Peyman Giles MD [address] [place] [address] Drive [address] [place] [phone] PCP - General Internal Medicine 03/06/24 documented as of this encounter Additional Source Comments The information contained in this document represents components of the legal health record. It is not the complete legal health record.[facility]
--- OUTSIDE RECORDS SUMMARY | 2025-06-27 13:36 | XMS_ITS | Clinical Summary ---
Author Organization [facility], Address [address] [place] [address] [place] [address] Phone Care Team Providers Care Business Computers Teacher Name Role Phone Peyman Dunn MD Primary Care Provider [phone] Allergies Active Allergy Reactions Criticality Noted Date [...] PCV) 1996 Influenza Vaccine (#1) 2025 Insurance [facility] [place] [id number] [address] [place] [address] Care Teams Business Computers Teacher Relationship Specialty Start Date End Date Peyman Dunn MD [facility] [place] [address] [place] PCP - General 08/01/19
--- OUTSIDE RECORDS SUMMARY | 2025-06-27 13:36 | XMS_ITS | Encounter Summary ---
Author Organization [facility] Address [address] [place] [address] Phone Care Team Providers Care Lock Tender Chief Operator Name Role Phone Peyman Dunn MD Primary Care Provider [phone] Encounter Details Date Type Department Care Team (Late st Contact Info) Description 04/12/2025 Procedure Pass [facility] MOE 4 ENDO DEPT [address] [facility], 4th [place] [address] Social History Tobacco Use Types Packs/Day Years [...] [facility] [address] [place] [address] Merari Ruiz MD [address] [place] [address] [email or web address] 08/20/2025 12:30 PM EST Office Visit [address] [address] Oscar Goyal MD, PhD [address] [place] [address] [email or web address] documented as of this encounter Visit Diagnoses Not on filedocumented in this encounter Care Teams Lock Tender Chief Operator Relationship Specialty Start Date End Date Peyman Dunn MD [address] [place] [phone] PCP - General Internal Medicine 03/06/24 documented as of this encounter Additional Source Comments The information contained in this document represents components of the legal health record. It is not the complete legal health record.[facility]
--- OUTSIDE RECORDS SUMMARY | 2025-06-27 13:36 | XMS_ITS | Encounter Summary ---
Author Organization [facility] Address [address] [address] Phone Care Team Providers Care Paleologist Name Role Phone Peyman Dunn MD Primary Care Provider Encounter Details Date Type Department Care Team (Late st Contact Info) Description 05/02/2025 Telephone [facility] [address] [facility], 5th [place] [address] Margie Multani RN [address] [place] [address] [email or web address] Social History Tobacco Use Types Packs/Day [...] eyes ) They plan to go to [facility] for labs documented in this encounter Plan of Treatment Upcoming Encounters Date Type Department Care Team (Late st Contact Info) Description 08/14/2025 9:00 AM EST Telemedicine [facility] [address] [place] [address] Merari Ruiz MD [address] [place] [address] [email or web address] 08/20/2025 12:30 PM EST Office Visit [facility] [address] [facility] 3[address] [place] [address] Oscar Goyal MD, PhD [address] [place] [phone] [email or web address] documented as of this encounter Visit Diagnoses Not on filedocumented in this encounter Care Teams Paleologist Relationship Specialty Start Date End Date Po, Peyman Giles MD [address] [place] [phone] PCP - General Internal Medicine 03/06/24 documented as of this encounter Additional Source Comments The information contained in this document represents components of the legal health record. It is not the complete legal health record.[facility]
== END 2025-06-27 12:06 | disposition home or self-care (01) ==
LOC: HO.LAB 12:05
PROVIDERS: PCP Internal Medicine; Visit Provider Internal Medicine
DX: K83.01 Primary sclerosing cholangitis (principal); R79.89 Other specified abnormal findings of blood chemistry
CPT/HCPCS: 36415; 80053; 85025; 85610

== ENCOUNTER 2025-07-26 12:18 | Outpatient (REF) | payer OTHER, SELFPAY ==
--- OUTSIDE RECORDS SUMMARY | 2024-02-08 10:20 | XMS_ITS ---
Author Organization [facility] Address [address] [place] [address] Care Team Providers Care Feed Preparation Operator Name Role Phone Peyman Dunn MD Primary Care Provider Arturo Nelson [phone] Nivia Hidalgo Unavailable Unavailable REASON FOR VISIT Patient presents today for ELEVATED LFT'S Encounters Encounter Location Date Provider Diagnosis [facility] [address] [place] [phone] 02/08/2024 Arturo Baxter Plan Of Treatment No Information Progress Notes * RODRICK BUTLEROB:1975 ( 49 yo M)Acc No.[id number]:02/08/2024 Progress Notes Patient: GIOVANNA RAINEY Provider: Russ Baxter MD :1975 A ge:48 Y S ex:Male Date:02/08/2024 Address:[address] [place] [address], [facility] Pcp:Peyman Dunn MD Subjective: * Chief Complaints: [...] Date: 0 02/08/2024 Generated for Jo Ann ng/Faemileeg/eTransmitting on: 1 03:10 PM EDT
--- OUTSIDE RECORDS SUMMARY | 2024-04-13 07:30 | XMS_ITS ---
Author Organization [facility] Address [address] [place] [address] Care Team Providers Care Material Handling Crew Supervisor Name Role Phone Peyman Dunn Primary Care Provider Keely Treviño [phone] Encounters Encounter Location Date Provider Diagnosis [address] [address] 04/13/2024 Keely Charles Plan Of Treatment No Information Progress Notes * Kailash NDIAYE LDOB:1975 (49 yo M)Acc No.[id number]:04/13/2024 Progress Notes Patient: Osmin GIL Kailash Angel Provider: Stanley Charles DPM :1975 A ge:48 Y S ex:Male Date:04/13/2024 Address:[address] [place], [place] [id number] Pcp:Peyman Dunn Subjective: * Chief Complaints: * * Medical History: Objective: * Vitals: Assessment: Plan: * Treatment: * Images: * The named appointment provid er may or may not be the originator of this progress note, and it is not deemed complete until electronically signed by the appointment provider. Sign off status: Pending * Provider: Stanley Charles DPM Date: 0 04/13/2024 Generated for Cristianai ng/Faemileeg/eTransmitting on: 03:10 PM EDT
[2025-07-26 12:33] LABS: MANUAL DIFF FLAG NO
[2025-07-26 13:09] LABS: Hematocrit 46.2 % (42.0-52.0); Hemoglobin 15.0 g/dl (14.0-18.0); Imm Gran Abs Auto 0.03 X10*3/uL (0.00-0.03); Imm Gran Pct Auto 0.5 % (0.0-0.4); Lymphocytes Absolute Auto 1.6 X10*3/uL (1.2-4.9); Mean Corpuscular HGB Conc 32.5 g/dl (31.0-36.0); Mean Corpuscular Hemoglobin 31.6 pg (27.0-33.0); Mean Corpuscular Volume 97.5 fL (80.0-98.0); NRBC Abs Auto 0.000 X10*3/uL (0.0-0.012); NRBC Pct Auto 0.0 /100WBC (0.0-0.2); Platelet Count 195 X10*3/uL (160-400); Red Blood Count 4.74 X10*6/uL (4.60-5.80); White Blood Count 6.6 X10*3/uL (4.8-10.8)
[2025-07-26 13:23] LABS: INTERNATIONAL NORM RATIO 1.1 (0.9-1.1); Prothrombin Time 13.1 SEC (10.9-12.4)
[2025-07-26 13:41] LABS: Alanine Aminotransferase 148 U/L (0-40); Albumin Level 4.0 g/dL (3.5-5.0); Alkaline Phosphatase 306 U/L (39-117); Anion Gap 13 (12-20); Aspartate Amino Transferase 143 U/L (5-37); Blood Urea Nitrogen 11 mg/dL (9-16); Calcium 9.8 mg/dL (8.4-10.2); Carbon Dioxide 27 mmol/L (22-29); Chloride 106 mmol/L (96-108); Estimated Glomerular Filt Rate > 60; Potassium 3.7 mmol/L (3.3-5.1); Sodium 142 mmol/L (135-145); Total Protein 8.6 g/dL (6.5-8.0)
--- OUTSIDE RECORDS SUMMARY | 2025-07-26 15:10 | XMS_ITS | Patient Health Record ---
Author Organization [facility] Address [address] [place] [address] Care Team Providers Care Chemical Process Operator Name Role Phone Peyman Dunn Primary Care Provider Keely Treviño Unavailable [phone] Allergies Allergen (clinical drug ingredient) Drug/Non Drug [...] Notes Problem Ulcer of right foot (disorder) (649439452) Ulcer of right foot with fat layer exposed (L97.512) Active confirmed Plan Of Treatment Pending Test Test Name Order Date X ray : Foot, right 3V 04/04/2024 X ray : Foot, right 3V 05/12/2024 X ray : Foot, right 3V 07/03/2024 Insurance Providers Payer Name Payer Address Payer Phone Subscriber Number Group Number Insured Name Patient Relationship to Insured Coverage Start Date Coverage End Date [facility] [employer] Claims [address] [place] [id number] Kailash Ndiaye Self - patient is the insured Medical (General) History Medical History History ICD Code Anxiety Broken bones Crohns disease Colitis Depression Hiatal hernia High blood pressure Poor circulation Chicken pox Transfusions PSC Surgical History Surgery Date(Month/Year) colon removed Ostemy reversal right heel surgery colonoscopy Hospitalization History Reason Date(Month/Year) ER [facility]- Broken toe 04/03/24
--- OUTSIDE RECORDS SUMMARY | 2025-07-26 15:10 | XMS_ITS ---
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 Care Team Name Role Phone Fax Email Mya Kimbrough RN Liver Coordinator [phone] N/A [email or web address] Jiménez [facility] Global Director Air And Climate Change [phone] N/A [email or web address] Faustino Dozier MD Referring Physician [phone] [email or web address] Merari Ruiz MD Referring Physician [phone] Ravi@[email or web address] Veronica Roe MD Transplant Surgeon [phone] [email or web address] Deb Samayoa Rn Clinical Resource N/A N/A N/A SUDARSHAN Collins Dietitian [phone] N/A [email or web address] Events Pre-Transplant Referred: 04/27/2025 Evaluation began: 05/30/2025 Committee: 06/13/2025 Appointments (06/26/2025 - 08/26/2025) When With Visit Type Description 08/06/2025 Inf Disease - Sebastian Flores ent 08/06/2025 Cardiology Nuc Stress
--- OUTSIDE RECORDS SUMMARY | 2025-07-26 15:10 | XMS_ITS | Data Portability ---
Author Organization [place] - [facility], Allergy Address [address] [place] [address] Care Team Providers Care Electric Range Servicer Name Role Phone SERGIOSHERI Primary Care Provider Assessment Encounter Date Assessment [...] tube and have him follow-up with physician assistant tennis professional in 6 months. [email or web address] Not available 07/10/2024 11:30:21 01/08/2025 01/08/2025 49-year-old male with extensive history of ETD presents for reevaluation. On examination the right drum remains scarred but with well aerated middle ear space. No retraction or over insufflation. Left tube remains in place and patent. Continue observation and follow-up in 6 months. [email or web address] Not available 01/08/2025 11:36:41 07/10/2025 07/10/2025 49 year old male, with a longstanding history of eustachian tube dysfunction s/p BDET with concurrent right tympanostomy tube placement and left tube removal with paper patch myringoplasty on 11/18/18, and most recently left T-tube replacement in the office performed 05/07/[address] Cunningham, presents for routine tube check. Right tube has already extruded. Left T-tube is patent and in proper position without otorrhea or infection. Follow up in 6 months for reassessment, at which time we will update his audiogram to establish new baseline hearing. All questions were answered. [email or web address] Not available 07/10/2025 20:34:46 Plan of Treatment Reminders Order Date Submit Date Provider Last Modified By Organization Details Last Modified Time Details Appointments FOLLOW UP 30 2025 10:00A M Hearing Test Not available Not available Not available Establish ed 15 2025 10:30A M RICKEY CHANG Not available Not available Not available Lab None recorded. Referral None recorded. Procedures None recorded. Surgeries None recorded. Imaging None recorded. Medication Orders None recorded. Patient TargetsNo targets recorded. Patient InstructionsNo instructions recorded. Reason for Referral None Reported. Problems Name Problem SNOMED Code Status Onset Date Resolution Date Notes Provider Name and Address Organization Details Recorded Time Otorrhea 80278966 Completed 201304/28/2024 Otorrhea ; Note: Date Diagnose d: 4 3:36 PM (388.60) Not Available [facility] 4 02:20:10 Abnormal granulat ion tissue 67997187 Completed 201304/28/2024 Other abnormal granulat ion tissue; Note: Date Diagnose d: 4 3:36 PM (701.5) Not Available [facility] 4 02:19:39 Conducti ve hearing loss, bilatera l 614048507 Active 2014 Conducti ve HL, bilatera l; Note: Date Diagnose d: 5 9:19 AM (389.06) Not Available [facility] 4 02:19:31 Conducti ve hearing loss 27081600 Active 2015 Conducti ve hearing loss, unilater al, right ear, with unrestri cted hearing on the contrala teral side; Note: Date Diagnose d: 6 4:27 PM (H90.11) Not Available [facility] 4 02:20:11 Bilatera l disorder of Eustachi an tubes 32056414167 17049 Active 2015 Other specifie d disorder s of Eustachi an tube, bilatera l; Note: Date Diagnose d: 6 3:50 PM (H69.83) RICKEY CHANG [address] [place] [address], [place], [address] , [facility] - [facility] 5 22:37:32 Sensorin eural hearing loss 00832474 Active 2015 Sensorin eural hearing loss, unilater al, left ear, with unrestri cted hearing on the contrala teral side; Note: Date Diagnose d: 6 3:50 PM (H90.42) Not Available [facility] 4 02:19:20 Chronic serous otitis media of right ear 391078422 Active 2016 Chronic serous otitis media, right ear; Note: Changed from H65.01 to H65.21 (10/20/19 19 10:45 AM) , Date Diagnose d: 7 3:35 PM (H65.01) Not Available [facility] 4 02:19:22 Marginal perforat ion of tympanic membrane 68995084 Completed 201804/28/2024 Other marginal perforat ions of tympanic membrane , left ear; Note: Date Diagnose d: 9 3:56 PM (H72.2X2 ) Not Available [facility] 4 02:19:34 Mixed conducti ve and sensorin eural hearing loss, bilatera l 066600575 Active 2018 Mixed conducti ve and sensorin eural hearing loss, bilatera l; Note: Date Diagnose d: 9 10:40 AM (H90.6) Not Available [facility] 4 02:19:40 Impacted cerumen in right ear 85853384033 30954 Active 2018 Impacted cerumen, right ear; Note: Date Diagnose d: 07/12/20 19 1:19 PM (H61.21) Not Available [facility] 4 02:20:05 Abnormal auditory percepti on 75086423 Active 2019 Other abnormal auditory percepti ons, bilatera l; Note: Date Diagnose d: 0 1:35 PM (H93.293 ) Not Available [facility] 4 02:19:45 Acute myringit is of left ear 80910018577 12162 Active 2019 Acute myringit is, left ear; Note: Date Diagnose d: 0 9:33 AM (H73.002 ) Not Available [facility] 4 02:19:45 Chronic mucoid otitis media of left middle ear 50652945562 63947 Active 2019 Chronic mucoid otitis media, left ear; Note: Date Diagnose d: 0 9:04 AM (H65.32) Not Available [facility] 4 02:19:17 Chronic left myringit is 81746387588 94913 Completed 201904/28/2024 Chronic myringit is, left ear; Note: Date Diagnose d: 07/11/20 20 9:44 AM (H73.12) Not Available [facility] 4 02:20:02 Otorrhea of left ear 95504260984 77087 Active 2019 Otorrhea , left ear; Note: Date Diagnose d: 07/11/20 20 9:45 AM (H92.12) Not Available [facility] 4 02:20:06 Obstruct jeff sleep apnea syndrome 48934116 Active 2021 Obstruct jeff sleep apnea (adult) (pediatr ic); Note: Date Diagnose d: 2 2:19 PM (G47.33) Not Available [facility] 4 02:19:44 Mixed conducti ve and sensorin eural hearing loss of left ear 46549814016 107 Active 2021 Mixed conducti ve and [...] 2 2:22 PM (H90.A32 ) Not Available [facility] 4 02:19:34 Sensorin eural hearing loss in right ear 40685521370 100 Active 2021 Sensorin eural hearing loss, unilater al, right ear, with restrict ed hearing on the contrala teral side; Note: Date Diagnose d: 2 2:22 PM (H90.A21 ) Not Available [facility] 4 02:19:55 Problem Notes None recorded. Medical [...] mg tablet 07/10 completed Medicati on ID: [id number] D uration Value: 30 Brand Name: warfarin [...] topical cream 07/11 completed Medicati on ID: [id number] D uration Value: 1 Brand Name: permethr in Send Method: E-Prescr ibed Sub s Allowed: subs OK Speci al Instruct ion: SERGIO FROM HEAD TO TOE AND RINSE AFTER 12 H UTD [facility] nericNam e: permethr in Not Available Not [...] 0.5 % eye drops INSTILL 1 DROP BOTH EYES TWICE DAILY active Not Available Not Available No t Available propranol ol 10 mg tablet TAKE 1 TABLET BY MOUTH TWICE DAILY active Not Available Not Available No t Available hydromorp cornelius 2 mg tablet 06/17 completed Medicati on ID: [id number] B rand Name: hydromor phone Se nd Method: E-Prescr ibed Sub s Allowed: subs OK Medic ationGen ericName : hydromor phone Not Available Not Available Not Available potassium chloride ER 20 mEq tablet,ex tended release(p art/cryst ) TAKE 1 TABLET BY MOUTH TWICE DAILY active Not Available Not Available No t Available Lovenox 100 mg/mL subcutane ous syringe 06/17 completed Medicati on ID: [id number] B rand Name: Lovenox Send Method: E-Prescr ibed Sub s Allowed: subs OK Medic ationGen ericName : Lovenox Not Available Not Available Not Available ascorbic acid (vitamin C) 500 mg tablet TAKE 1 TABLET BY MOUTH DAILY active Not Available Not Available No t Available Cartia XT 120 mg capsule,e xtended release 06/17 completed Medicati on ID: [id number] D uration Value: 30 Brand Name: Cartia XT Send Method: E-Prescr ibed Sub s Allowed: subs OK Speci al Instruct ion: TK ONE C PO D Medica tionGene ricName: Cartia XT Not Available Not Available Not Available cephalexi n 500 mg capsule TAKE 1 CAPSULE BY MOUTH EVERY 6 HOURS FOR 10 DAYS 07/10 completed Not Available Not Available Not Available ursodiol 300 mg capsule TAKE 2 CAPSULE BY MOUTH DAILY AND 3 CAPSULE BY MOUTH AT BEDTIME. DO ALL THIS FOR 30 DAYS active Not Available Not Available No t Available warfarin 5 mg tablet 07/11 completed Medicati on ID: [id number] D uration Value: 30 Brand Name: warfarin [...] mg tablet 07/11 completed Medicati on ID: [id number] D uration Value: 30 Brand Name: oxcarbaz [...] layed release 06/17 completed Medicati on ID: [id number] D uration Value: 30 Brand Name: bisacody l Send Method: E-Prescr ibed Sub s Allowed: subs OK Speci al Instruct ion: TK 1 T PO BID PRN Medi cationGe nericNam e: bisacody l Not Available Not Available Not Available mirtazapi ne 15 mg tablet 10/20 completed Medicati on ID: [id number] D uration Value: 30 Reason: () Brand Name: mirtazap ine Send Method: E-Prescr ibed Sub s Allowed: subs OK Speci al Instruct ion: TK 1 T PO QHS Medi cationGe nericNam e: mirtazap ine Not Available Not Available Not Available gabapenti n 100 mg capsule TAKE 1 CAPSULE BY MOUTH EVERY EVENING FOR 1 WEEK THEN TWICE DAILY active Not Available Not Available No t Available propranol ol 20 mg tablet TAKE 2 TABLETS BY MOUTH TWICE DAILY active Not Available Not Available No t Available ondansetr on 4 mg disintegr ating tablet DISSOLVE 1 TABLET ON THE TONGUE EVERY 8 HOURS NEEDED FOR NAUSEA OR VOMITING active Not Available Not Available No t Available topiramat e 100 mg tablet 10/20 completed Medicati on ID: [id number] D uration Value: 30 Reason: () Brand Name: topirama te Send Method: E-Prescr ibed Sub s Allowed: subs OK Speci al Instruct ion: TK 1 T PO BID Medi cationGe nericNam e: topirama te Not Available Not Available Not Available multivita min capsule active Medicati on ID: [id number] B rand Name: multivit green Sen d Method: E-Prescr ibed Sub s Allowed: subs OK Medic ationGen ericName : multivit green Not Available Not Available Not Available sertralin e 50 mg tablet 07/10 completed Medicati on ID: [id number] B rand Name: sertrali ne Send Method: E-Prescr ibed Sub s Allowed: subs OK Medic ationGen ericName : sertrali ne Not Available Not Available Not Available naproxen 500 mg tablet TAKE 1 TABLET BY MOUTH TWICE DAILY 01/08 completed Not Available Not Available Not Available Vitamin B-12 1,000 mcg tablet active Medicati on ID: [id number] B rand Name: Vitamin B-12 Sen d Method: E-Prescr ibed Sub s Allowed: subs OK Medic ationGen ericName : Vitamin B-12 Not Available Not Available Not Available amoxicill in 500 mg-potass ium clavulana te 125 mg tablet TAKE 1 TABLET BY MOUTH TWICE DAILY FOR 3 DAYS 07/07 completed Not Available Not Available Not Available ciclopiro x 0.77 % topical gel APPLY TOPICALL Y TO THE AFFECTED AREA TWICE DAILY 07/10 completed Not Available Not Available Not Available oxycodone 5 mg tablet TAKE 1 TABLET BY MOUTH EVERY 6 HOURS NEEDED FOR BREAKTHR OUGH PAIN active Not Available Not Available No t Available neomycin- polymyxin -hydrocor t 3.5 mg-10,000 unit/mL-1 % ear drops,manan p 12/11 completed Medicati on ID: [id number] Pr escribed By Name: EMEILA Gipson nd Name: neomycin -polymyx in-HC Se nd Method: E-Prescr ibed Sub s Allowed: subs OK Speci al Instruct ion: 4 drops left ear BID X 14 days Med icationG enericNa me: neomycin -polymyx in-HC Not Available Not Available Not Available TobraDex 0.3 %-0.1 % eye drops,manan pension 07/10 completed Medicati on ID: [id number] D uration Value: 10 Prescri bed By Name: Saúl Hammond nd Name: TobraDex Send Method: E-Prescr ibed Sub s Allowed: subs OK Speci al Instruct ion: Instill 4 drops in the affected ear twice a day for 10 days Med icationG enericNa me: TobraDex Not Available Not Available Not Available bupropion HCl SR 200 mg tablet,12 hr sustained -release 10/20 completed Medicati on ID: [id number] D uration Value: 30 Reason: () Brand [...] right ear 07/10 completed Medicati on ID: [id number] D uration Value: 7 Prescri bed By Name: Saúl Hammond nd Name: Ciprodex Send Method: E-Prescr ibed Sub s Allowed: subs OK Speci al Instruct ion: x 1 week Med icationG enericNa me: Ciprodex Not Available Not Available Not Available ursodiol 500 mg tablet TAKE 1 IN THE MORNING AND 2 TABLETS BY MOUTH IN THE EVENING active Not Available Not Available No [...] Not Available Not Available No t Available chlorhexi dine gluconate 0.12 % mouthwash SWISH AND RINSE MOUTH WITH 15 ML FOR 30 SEC AM AND PM AFTER TOOTHBRU SHING SPILL IT OUT AFTER RINSIND DO NOT SWALLOW active Not Available Not Available No t Available Calcium 600 active Not Available Not Available Not Available ProAir HFA 90 mcg/actua tion aerosol inhaler 07/11 completed Medicati on ID: [id number] D uration Value: 16 Brand Name: ProAir [...] unit) tablet 07/10 completed Medicati on ID: [id number] B rand Name: cholecal ciferol (vitamin D3) Send Method: E-Prescr ibed Sub s Allowed: subs OK [facility] cholecal ciferol (vitamin D3) Not Available Not Available Not Available Eliquis 5 mg tablet TAKE 1 TABLET BY MOUTH TWICE DAILY active Not Available Not Available No t Available potassium chloride ER 20 mEq tablet,ex tended release 07/11 completed Medicati on ID: [id number] D uration Value: 30 Brand Name: gracia mcpherson chloride Send Method: E-Prescr ibed Sub s Allowed: subs OK Speci al Instruct ion: TK 1 T PO QD Medic [facility] ericName : nestoru ky chloride Not Available Not Available Not Available Vitals Date Recorded Body height Body mass index (BMI) Body weight Provider Name and Address Organization Details Last Updated DateTime 01/08/2025 172.72 cm 27.4 kg/m2 32220.63 g Abby Shona [facility] 01/08/2025 11:00:09 Date Recorded Body height Body mass index (BMI) Body weight Provider Name and Address Organization Details Last Updated DateTime 07/10/2025 172.72 cm 27.4 kg/m2 19380.63 g Nikia Oconnor [facility] 07/10/2025 10:42:35 Social History None recorded. Functional Status None recorded. Mental Status None recorded. Family History Nothing Reported. Medical History Condition Response Diabetes Y Arthritis Y Stroke Y Hypertension Y Past Encounters Encounter ID Performer Location Encounter Start Date Encounter Closed Date Diagnosis/Indication Diagnosis SNOMED-CT Code Diagnosis ICD10 Code Diagnosis IMO Codes Diagnosis Note [id number] TOMER CUNNINGHAM MD [facility] [address] [address] 07/10/2024 09:41:31 07/10/2024 11:29:44 Bilateral disorder of Eustachian tubes 1038352213 889870 H69.83 [id number] ARDEN SILVA PA-C [facility] [address] [place] [address] 01/08/2025 10:53:21 01/08/2025 11:10:01 Bilateral disorder of Eustachian tubes 8492026360 684004 H69.83 [id number] RICKEY CHANG [facility] [address] [facility] [place] [address] 07/10/2025 10:37:15 07/10/2025 11:13:54 Bilateral disorder of Eustachian tubes 3890986665 934304 H69.83 Health Concerns Section Related Observation LastModified by Organization Detai ls LastModified Time None Recorded Concern Status LastModified by Organization Details LastModified Time None Recorded Advance Directives Directive None Recorded Payers Insurance Date Sequence Insurance Name Policy Number Policy Fajardo Covered Member ID Fajardo Member ID Guarantor Name 01/01/2025 1 [facility] - DOS ON OR AFTER 2022 - MEDICARE [place]AGE [place]ARE RE[place]ACEMENT/ADV ANTAGE - PPO) Kailash Ndaiye [id number] Kailash Ndiaye 07/07/2025 1 [facility] - DOS ON OR AFTER 2022 - ONE CARE (MEDICARE REPLACEMENT/ADV ANTAGE - HMO) Kailash Ndiaye [id number] Kailash Ndiaye Notes Date Note Type Note [...] ear had been feeling much better. TOMER CUNNINGHAM MD [address] [place] [address], [phone], [facility] - [facility] 07/10/2024 11:30:57 01/08/2025 text/html ROS as [...] pops his ears frequently. Hearing stable. TOMER CUNNINGHAM MD [address] [facility],[address], [address], [facility] - [facility] 01/09/2025 16:38:34 07/10/2025 text/html ROS as noted in the [facility] 49 year old male, with a longstanding history of eustachian tube dysfunction s/p BDET with concurrent right tympanostomy tube placement and left tube removal with paper patch myringoplasty on 11/18/18, and most recently left T-tube replacement in the office performed 05/07/[address] Cunningham, presents with his partner for routine tube check. Right tube has already extruded. Patient has not had any issues with his ears as of lately. Denies otalgia, otorrhea, blockage and popping sensation. He reports his hearing is stable, though his partner believes it has gotten slightly worse. TOMER CUNNINGHAM MD 100 [facility],[address], [address], [facility] - [facility] 07/11/2025 07:29:41
--- OUTSIDE RECORDS SUMMARY | 2025-07-26 15:10 | XMS_ITS | Clinical Summary ---
Author Organization [employer] Address [address] [facility] 7t [place] [address] Care Team Providers Care New Business Clerk Name Role Phone Unavailable Primary Care Provider [...] Description 06/11/2025 11:00 AM EDT Office Visit [facility]ULT [facility] [address] [place] [address] Kem Estrada DDS Dental caries (Primary Dx) [...] Patient Date of Phone Billing Address Personal/Family [address] [place] [address] [facility] MEDICAID [facility] ADULT DENTAL [facility]
--- OUTSIDE RECORDS SUMMARY | 2025-07-26 15:11 | XMS_ITS | Encounter Summary ---
Author Organization [facility] Address [address] [place] [address] Phone Care Team Providers Care Manager Diesel Name Role Phone Peyman Dunn MD Primary Care Provider [phone] Encounter Details Date Type Department Care Team (Latest Contact Info) Description 03/26/2025 Transcribe Orders [facility] [address] [place] [address], 5th [place] [address] Endoscopist, Next Available Total bilirubin, elevated (Primary [...] Team (Late st Contact Info) Description 06/22/2025 Procedure Pass [facility] Cardiac US [address] [place] [address] 08/06/2025 10:00 AM EST Office Visit [facility] [address] [facility], 5t Floor, [address] [place] [address] Diana Flores MD [address] [place] [address] GRJ [address] [place] [address] [email or web address] 08/06/2025 1:40 PM EST Appointment [facility] Nuclear Cardiology [address] [place] [address] Faustino Dozier MD [address] [address] [email or web address] 08/14/2025 9:00 AM EST Telemedicine [facility] [address] [facility], 5th [place] [address] Merari Ruiz MD [address] [place] [address]-[address] [place] [address] [email or web address] 08/20/2025 12:30 PM EST Office Visit [facility] [address] [facility] 3rd [place] [address] Oscar Goyal MD, PhD [address] [place] [address] [email or web address] 08/28/2025 9:30 AM EST Office Visit Transplant Psychiatry Jairon 6 [address] [facility], 6th [place] [address] Funmilayo Bustos MD [address] [place] [address] WRN [address] [place] [phone] [email or web address] 08/28/2025 2:00 PM EST Appointment [facility] Cardiac US [address] [place] [address] Faustino Dozier MD [address] [address] [email or web address] documented as of this encounter Visit Diagnoses Diagnosis Total bilirubin, elevated- Primary documented in this encounter Care Teams Manager Diesel Relationship Specialty Start Date End Date Po, Peyman Giles MD [address] [place] [phone] PCP - General Internal Medicine 03/06/24 documented as of this encounter Additional Source Comments The information contained in this document represents components of the legal health record. It is not the complete legal health record.[facility]
--- OUTSIDE RECORDS SUMMARY | 2025-07-26 15:11 | XMS_ITS | Encounter Summary ---
Author Organization [facility] Address [address] [place] [address] [place] [address] Phone Care Team Providers Care Sports Leadership Instructor Name Role Phone Peyman Dunn MD Primary Care Provider [phone] Encounter Details Date Type Department Care Team (Late st Contact Info) Description 05/02/2025 Telephone [facility] [address] [facility], 5th [place] [address] Margie Multani RN [address] [place] [address] [email or web address] Social History Tobacco Use Types Packs/Day [...] eyes ) They plan to go to [facility] for labs documented in this encounter Plan of Treatment Upcoming Encounters Date Type Department Care Team (Late st Contact Info) Description 06/22/2025 Procedure Pass [facility] Card[facility] US [address] [place] [address] 08/06/2025 10:00 AM EST Office Visit [address], 5t Floor, [address] [place] [address] Diana Flores MD [address] [place] [address] [address] [place] [address] [email or web address] 08/06/2025 1:40 PM EST Appointment [facility] Nuclear Cardiology [address] [place] [address] Faustino Dozier MD [address] [address] [email or web address] 08/14/2025 9:00 AM EST Telemedicine [facility] [address] [place] [address], 5[address] [place] [address] Merari Ruiz MD [address] [facility] [place] [address] [email or web address] 08/20/2025 12:30 PM EST Office Visit [facility] 243 [facility] 3rd [place] [address] Oscar Goyal MD, PhD [address] [place] [address] [email or web address] 08/28/2025 9:30 AM EST Office Visit Transplant Psychiatry [place] [address] [address] [facility], 6th [place] [address] Funmilayo Bustos MD [address] [place] [phone] [email or web address] 08/28/2025 2:00 PM EST Appointment [facility] Cardiac [address] [address] Faustino Dozier MD [address] [address] [email or web address] documented as of this encounter Visit Diagnoses Not on filedocumented in this encounter Care Teams Sports Leadership Instructor Relationship Specialty Start Date End Date Shaun, Peyman Giles MD [address] [place] [phone] PCP - General Internal Medicine 03/06/24 documented as of this encounter Additional Source Comments The information contained in this document represents components of the legal health record. It is not the complete legal health record.[facility]
--- OUTSIDE RECORDS SUMMARY | 2025-07-26 15:11 | XMS_ITS | Encounter Summary ---
Author Organization [facility] Address [address] [place] [address] [place] [address] Phone Care Team Providers Care Spanish Speaking Nanny Name Role Phone Peyman Dunn MD Primary Care Provider [phone] Encounter Details Date Type Department Care Team (Late st Contact Info) Description 04/05/2025 Telephone [facility] [address] [facility], 5th [place] [address] Margie Multani RN [address] [place] [address] [email or web address] Social History Tobacco Use Types Packs/Day [...] st Contact Info) Description 06/22/2025 Procedure Pass [facility] Cardiac US [address] [place] [address] 08/06/2025 10:00 AM EST Office Visit [facility] [address] [facility], 5t Floor, [address] [place] [address] Diana Flores MD [address] [place] [address] GRJ 504 [place] [address] [email or web address] 08/06/2025 1:40 PM EST Appointment [facility] Nuclear Cardiology [address] [place] [address] Faustino Dozier MD [address] [address] [email or web address] 08/14/2025 9:00 AM EST Telemedicine [facility] [address] [place] [address], 5th [place] [address] Merari Ruiz MD [address] [place] [address] [place] [address] [email or web address] 08/20/2025 12:30 PM EST Office Visit [facility] [address] [facility] 3rd [place] [address] Oscar Goyal MD, PhD 243 [place] [address] [email or web address] 08/28/2025 9:30 AM EST Office Visit [facility] 6 [address] [facility], 6th [place] [address] Funmilayo Bustos MD [address] [place] [address] 605 [place] [address] [email or web address] 08/28/2025 2:00 PM EST Appointment [facility] Cardiac US [address] [place] [address] Faustino Dozier MD [address] [address] [email or web address] documented as of this encounter Visit Diagnoses Not on filedocumented in this encounter Care Teams Spanish Speaking Nanny Relationship Specialty Start Date End Date Po, Peyman Giles MD 2 [facility] [address] [place] [phone] PCP - General Internal Medicine 03/06/24 documented as of this encounter Additional Source Comments The information contained in this document represents components of the legal health record. It is not the complete legal health record.[facility]
--- OUTSIDE RECORDS SUMMARY | 2025-07-26 15:11 | XMS_ITS | Encounter Summary ---
Author Organization [facility] Address [address] [place] [address] [place] [phone] Phone Care Team Providers Care Migrant Leader Name Role Phone Peyman Dunn MD Primary Care Provider [phone] Encounter Details Date Type Department Care Team (Late st Contact Info) Description 04/05/2025 Telephone [facility] [place] [facility] [address] [facility], 5th [place] [address] Margie Multani RN [address] [place] [address] [email or web address] du Social History Tobacco Use Types Packs/Day [...] st Contact Info) Description 06/22/2025 Procedure Pass [facility] [place] Cardiac US 55 [place] [address] 08/06/2025 10:00 AM EST Office Visit [facility] [address] [facility], 5t Floor, [address] [place] [address] Diana Flores MD [address] [place] [address] GRJ [address] [place] [address] [email or web address] 08/06/2025 1:40 PM EST Appointment [facility] [place] Nuclear Cardiology [address] [place] [address] Faustino Dozier MD [address] [address] [email or web address] 08/14/2025 9:00 AM EST Telemedicine [facility] [place] [facility] [address] [place] [address], 5th [place] [address] Merari Ruiz MD [address] [place] [address] [place] [address] [email or web address] 08/20/2025 12:30 PM EST Office Visit [facility] [address] [facility] 3rd [place] [address] Oscar Goyal MD, PhD [address] [place] [address] [email or web address] 08/28/2025 9:30 AM EST Office Visit [facility]airon 6 55 [facility], 6th [place] [address] Funmilayo Bustos MD [address] [place] [address] 605 [place] [address] [email or web address]@[email or web address] 08/28/2025 2:00 PM EST Appointment [facility] [place] Cardiac US [address] [place] [address] Faustino Dozier MD [address] [address] [email or web address] [place].[facility] documented as of this encounter Visit Diagnoses Not on filedocumented in this encounter Care Teams Migrant Leader Relationship Specialty Start Date End Date Po, Peyman Giles MD 2 [facility] [address] [place] [phone] PCP - General Internal Medicine 03/06/24 documented as of this encounter Additional Source Comments The information contained in this document represents components of the legal health record. It is not the complete legal health record.[facility]
--- OUTSIDE RECORDS SUMMARY | 2025-07-26 15:11 | XMS_ITS | Clinical Summary ---
Author Organization [facility] Address [address] [place] [address] [phone] Phone Care Team Providers Care Call Center Professional Name Role Phone Peyman Dunn MD Primary Care Provider [phone] Allergies Active Allergy Reactions Criticality Noted Date [...] Active ferrous sulfate 325 mg (65 mg [place] iron) tablet daily. Active folic acid (FOLVITE) [...] Department Care Team Description 5 Orders Only [facility] [address] [place] [address] 77553 Mya Kimbrough RN Pre-operative cardiovascular examination, high risk surgery (Primary Dx); Encounter for other preprocedural examination; Liver transplant candidate; PSC (primary sclerosing cholangitis) 5 12:00 PM EDT Nutrition [facility] [address] [place] [address] 16148 Merari Ruiz MD Witchey, Jessica R, SUDARSHAN Pre-transplant evaluation for liver transplant (Primary Dx) 5 Documentation [facility] [address] [place] [address] 61152 Deb Samayoa 5 Committee Review [facility] [address] [place] [address] 56889 Mya Kimbrough, VIDAL 5 Documentation [facility] [address] [place] [address] 14281 Codi Perez RPH 5 2:00 PM EDT Social Work [facility] Social Service Department [address] [place] [address] 67880 Merari Ruiz MD Pierre, BrianTYSON schulz 5 1:30 PM EDT Office Visit [facility] [address] [place] [address] 37589 Veronica Roe MD PSC (primary sclerosing cholangitis) (Primary Dx) 5 10:30 AM EDT Nurse Only [facility] [address] [place] [address] 05823 Merari Ruiz MD Chirgwin, Tina Marie, VIDAL Need for hepatitis B screening test; Screening for human immunodeficiency virus; PSC (primary sclerosing cholangitis); Pre-transplant evaluation for liver transplant; Malnutrition; Malnutrition screen; Nutritional deficiency disorder; Sequelae of unspecified nutritional deficiency; Hepatic cirrhosis, unspecified hepatic cirrhosis type, unspecified whether ascites present; Liver transplant status 5 Documentation [facility] [address] [place] [address] 47204 Mya Kimbrough RN 5 10:15 AM EDT Anesthesia Event [facility] 4 ENDO DEPT [address] [facility], [address] [place] [address] 22976 Felix Major MD, PhD Sharon Guerin, VIDAL 5 10:00 AM EDT - 5 11:00 AM EDT Surgery [facility] 4 ENDO DEPT [address] [facility], [address] [place] [address] 60997 Geovani Sun MD ENDOSCOPIC RETROGRADE CHOLANGIOPANCREATOGRAPHY 5 9:40 AM EDT - 5 12:52 PM EDT Hospital Encounter [facility] 4 ENDO DEPT [address] [facility], [address] [place] [address] 42433 Geovani Sun MD Discharge Disposition: Home or Self Care 5 9:30 AM EDT - 5 9:39 AM EDT Hospital Encounter [facility] GI Endoscopy, Fernando 4 [address] [facility], [address] [place] [address] 30291 Geovani Sun MD Discharge Disposition: Home or Self Care 5 Orders Only [facility] [address] [place] [address] 34997 Faustino Dozier MD PSC (primary sclerosing cholangitis) (Primary Dx) 5 Procedure Pass [facility] 4 ENDO DEPT 55 [facility], 4th [place] [address] 5 11:00 AM EDT Pre-Admission Testing [facility] Pre-Procedure Evaluation Department Please [place] [address] Geovani Sun MD 5 Telephone [facility] [address] [place] [address] 52749 Lakeshia Licona 5 Telephone [facility] [address] [place] [address] 26666 Faustino Dozier MD 5 Telephone [facility] [address] [address] Kamini Wayne Appointment 5 Telephone [facility] [address] [address] Margie Multani RN 5 Ancillary Orders [facility] [address] [place] [address] 74947 Merari Ruiz MD 5 Ancillary Orders [facility] [address] [place] [address] 96558 Merari Ruiz MD 5 Ancillary Orders [facility] [address] [place] [address] 66636 Merari Ruiz MD 5 Telephone [facility] [address] [address] Faustino Dozier MD 5 9:00 AM EDT Telemedicine [facility] [address] [place] [address] 32622 Merari Ruiz MD PSC (primary sclerosing cholangitis) (Primary Dx); Abnormal LFTs; Total bilirubin, elevated 5 Orders Only [facility] 55 [facility], 5th Floor [place] [phone] Faustino Dozier MD Abnormal LFTs (Primary Dx) from Last 3 Months Family History Medical History Relation Comments Arthritis Unspecified 1 arthritis; MGM Cataracts Unspecified 1 cataract; MGM Diabetes Unspecified 1 diabetes mellitu s; MGM Glaucoma Unspecified 1 glaucoma; ? MGM Hypertension Unspecified 1 hypertension; MG M Uncoded Family History Unspecified 1 cancer; m aternal aunt ? type Uncoded Family History Unspecified 2 cardiac; MGM s/p [place] angina Uncoded Family History Unspecified 3 cva; [...] st Contact Info) Description 06/22/2025 Procedure Pass [facility] Cardiac US [address] [place] [address] 08/06/2025 10:00 AM EST Office Visit [facility], 5t Floor, [address] [place] [address] Diana Flores MD [address] [place] [address] [email or web address] 08/06/2025 1:40 PM EST Appointment [facility] Nuclear Cardiology [address] [place] [address] Faustino Dozier MD [address] [address] [email or web address] 08/14/2025 9:00 AM EST Telemedicine [facility] [address] [place] [address], 5th [place] [address] Merari Ruiz MD [address] [place] [address] [place] [address] [email or web address] 08/20/2025 12:30 PM EST Office Visit [facility] [address] [facility] 3rd [place] [address] Oscar Goyal MD, PhD [address] [place] [address] [email or web address] 08/28/2025 9:30 AM EST Office Visit Transplant Psychiatry [place] [address] 55 [facility], 6th [place] [address] Funmilayo Bustos MD 55 [facility] 605 [place] [phone] [email or web address] 08/28/2025 2:00 PM EST Appointment [facility] Cardiac US 55 [place] [address] Faustino Dozier MD [address] [address] [email or web address] Maintenance Due Date Last Done Comments DEPRESSION SCREENING 1989 PNEUMOCOCCAL VACCINES (0-49 years) (2 of 2 - PCV) 11/23/2018 11/23/2017 COLOGUARD 2022 COLONOSCOPY 2022 COLORECTAL CANCER SCREENING 2022 FIT TEST 2022 FOBT 2022 07/31/2020 SIGMOIDOSCOPY 2022 VIRTUAL COLONOSCOPY 2022 INFLUENZA VACCINE (#1) 2025 , 07/20/2023, 07/21/2022, Additional history exists COVID-19 VACCINE ( - 2024- season) 2025 11/20/2024, 03/05/2022, 07/11/2021 CREATININE LEVEL 06/27/2026 06/27/2025, , 05/30/2025, Additional history exists SCREENING FOR DIABETES 06/27/2028 06/27/2025 LIPID PANEL 05/30/2030 05/30/2025 Adult Td,Tdap Booster 04/04/2034 04/04/2024, 016 SMOKING STATUS SCREENING (Once After 26 Yrs) [...] this topic Medical Devices Implanted Type Area Linotype Mechanic Device Identifier Shelf Expiration Date Model / Serial / Lot Ivc Filter Procedures Procedure Name Priority Date/Time Associated Diagnosis Comments OUTSIDE LAB 06/29/2025 OUTSIDE LAB 06/29/2025 EXTERNALLY RESULTED HEMATOLOGY Routine 06/27/2025 12:30 PM EDT EXTERNALLY RESULTED CHEMISTRY Routine 12:30 PM EDT PT-INR Routine 06/27/2025 12:30 PM EDT OUTSIDE LAB 06/14/2025 EXTERNALLY RESULTED HEMATOLOGY Routine 06/13/2025 2:20 PM EDT EXTERNALLY RESULTED CHEMISTRY Routine 2:20 PM EDT TYPE AND SCREEN (ABO,RH,ANTIBODY [...] for liver transplant COMPREHENSIVE METABOLIC PANEL Routine 10:36 AM EDT Need for hepatitis B [...] OUTSIDE LAB 05/24/2025 EXTERNALLY RESULTED CHEMISTRY Routine 4:05 PM EDT OUTSIDE LAB 05/17/2025 OUTSIDE LAB 05/16/2025 CHEMISTRY COMMENT Routine 05/15/2025 5:26 PM EDT BILIARY TRACT MALIGNANCY Routine 025 5:26 PM EDT CHEMISTRY COMMENT Routine 05/15/2025 5:23 PM EDT BILIARY TRACT MALIGNANCY Routine 025 5:23 PM EDT CHEMISTRY COMMENT Routine 05/15/2025 5:19 PM EDT BILIARY TRACT MALIGNANCY Routine 025 5:19 PM EDT 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 us Scanning Interface Provider LAB BLOOD ORDERABLES Final Result * (ABNORMAL) EXTERNALLY RESULTED HEMATOLOGY (06/27/2025 12:30 PM EDT) Only the most recent of4 resultswithin the time period is included. WBC - External 5.6 4.8 - 10.8 10*3/uL Comment:Done at [facility] RBC - External 4.22(A) 4.60 - 5.80 10*6/uL Comment:Done at [facility] HCT - External 41.0(A) 42.0 - 52.0 % Comment:Done at [facility] HGB - External 13.6(A) 14.0 - 18.0 g/dL Comment:Done at [facility] Platelets - External 173 160 - 400 10*3/uL Comment:Done at [facility] MCV - External 97.2 80.0 - 98.0 fL Comment:Done at [facility] RDW - External 13.6 11.0 - 16.0 % Comment:Done at [facility] Eosinophils - External Neutrophils - External WBC (manual) - External PT-INR (manual) - External) PTT - External Fibrinogen - External Fibrinogen (manual) - External Hemoglobin Electrophoresis - External Hemoglobin A1c - External Absolute Lymphocytes - External PTT - External Protime - External MONO ABS - EXTERNAL BASOS ABS - EXTERNAL Immature Gran - External 06/27/2025 12:3 0 PM EDT us Historical Provider MD LAB BLOOD ORDERABLES Mili l Result * (ABNORMAL) EXTERNALLY RESULTED CHEMISTRY (06/27/2025 12:30 PM EDT) Only the most recent of6 resultswithin the time period is included. Sodium - External 142 135 - 145 mmoI/L Comment:Done at [facility] Potassium - External 3.8 3.3 - 5.1 mmoI/L Comment:Done at [facility] Chloride - External 108 96 - 108 mmoI/L Comment:Done at [facility] CO2 - External 26 22 - 29 mmoI/L Comment:Done at [facility] BUN - External 10 9 - 16 mg/dL Comment:Done at [facility] Creatinine, serum - External 0.67 0.5 - 1.4 mg/dL Comment:Done at [facility] BUN/Creatinine - External eGFR - External Glucose - External 86 80 - 115 mg/dL Comment:Done at [facility] Calcium - External 9.6 8.4 - 10.2 mg/dL Comment:Done at [facility] Phosphorus - External Magnesium - External Albumin - External 3.8 3.5 - 5.0 g/dL Comment:Done at [facility] Bilirubin, total - External 6.4(A) 0.0 - 1.0 mg/dL Comment:Done at [facility] Bilirubin, direct - External Bilirubin (conjugated) - External Bilirubin, indirect - External Protein - External 7.9 6.5 - 8.0 g/dL Comment:Done at [facility] Alkaline Phosphatase - External 359(A) 39 - 117 U/L Comment:Done at [facility] AST - External 89(A) 5 - 37 U/L Comment:Done at [facility] ALT - External 94(A) 0 - 40 U/L Comment:Done at [facility] Amylase - External Lipase (u/L) [...] Isoenzymes - External Cystatin C - External 06/27/2025 12:3 0 PM EDT us Historical Provider MD LAB BLOOD ORDERABLES Edit ed Result - Final * (ABNORMAL) PT-INR (06/27/2025 12:30 PM EDT) Only the most recent of4 resultswithin the time period is included. PT - External 12.8(A) 10.9 - 12.4 SEC Comment:Done at [facility] INR - External 1.1 0.9 - 1.1 Comment:Done at [facility] 06/27/2025 12:3 0 PM EDT Historical Provider MD LAB BLOOD ORDERABLES Mili l Result * Phosphatidylethanol (05/30/2025 10:36 AM EDT) PEth 16:0/18:1 (POPEth) by LC-MS/MS <10 Cutoff: 10 ng/mL [facility] Comment: (NOTE) Phosphatidylethanol (PEth) [...] (PLPEth) by LC-MS/MS <10 Cutoff: 10 ng/mL [facility] Comment: (NOTE) PEth 16:0/18:2 (PLPEth) Reference ranges are not well established PEth Interpretation Negative. [facility] MED/PATH [facility] Comment: (NOTE) ADDITIONAL INFORMATION This report is intended for use in clinical monitoring and management of patients. It is not intended for use in employment-related testing. This test was developed and its performance characteristics determined by [facility] in a manner consistent with CLIA requirements. This test has not been cleared or approved by the U.S. Food and Drug Administration. Blood 05/30/2025 10:3 6 AM EDT 05/30/2025 12:53 PM EDT [employer] V I Ojanki PA-C LAB BLOOD ORDERABLES Final Result [facility] LAB MED/PATH [facility] [address] [place] [address] * Hepatitis A antibody, IgG (05/30/2025 10:36 AM EDT) HAV IGG AB Positive [facility] Comment: (NOTE) REFERENCE RANGE: Unvaccinated: Negative Vaccinated: Positive A positive result indicates the presence of HAV-specific IgG antibody from either vaccination or prior exposure to hepatitis A virus Blood 05/30/2025 10:3 6 AM EDT 05/30/2025 12:49 PM EDT [employer] Networksjanki PA-C LAB BLOOD ORDERABLES Final Result Performing Organization Address [facility] Co de Phone Number [address] [address] * Ethanol, blood (05/30/2025 10:36 AM EDT) ETHANOL Negative Negative mg/dL [facility] Blood 05/30/2025 10:3 6 AM EDT 05/30/2025 12:53 PM EDT Loganer PA-C LAB BLOOD ORDERABLES Final Result [address] [address] * Retinol binding protein (05/30/2025 10:36 AM EDT) RETINOL BIND PROTEIN 4.2 1.5 - 6.7 mg/dL [facility] Comment: (NOTE) Test Performed by: code-laboration/[place] [address] [place] [address] Blood 05/30/2025 10:3 6 AM EDT 05/30/2025 12:49 PM EDT Deborah Cowan [facility] LAB BLOOD ORDERAB LES Final Result [facility] * (ABNORMAL) Cystatin C (05/30/2025 10:36 AM EDT) Cystatin C 1.38(H) 0.61 - 0.95 mg/L [facility] eGFR (Cystatin C) 53(L) >59 mL/min/1. 73m2 [facility] Comment: Cystatin C-based eGFR may differ substantially from creatinine-based eGFR in patients with abnormal muscle mass or acutely changing renal function. Please interpret together with relevant clinical features. Blood 05/30/2025 10:3 6 AM EDT 05/30/2025 12:53 PM EDT Jodi Donnelly PA-C LAB BLOOD ORDERABLES Final Result [address] [address] * Mumps antibody, IgG (05/30/2025 10:36 AM EDT) MUMPS VIRUS AB IGG 76.90 AU/mL [employer] [facility] [place] [address] Comment: (NOTE) AU/mL Interpretation ------- <9.00 Not consistent with immunity 9.00-10.99 Equivocal >10.99 Consistent with immunity The presence of mumps IgG antibody suggests immunization or past or current infection with mumps virus. Blood (Blood) 05/30/2025 10: 36 AM EDT 05/30/2025 12:46 PM EDT us Jodi Gabe Scherrer PA-C NON CULTURE MICROBIO LOGY Final Result Performing Organization Address [facility] Co de Phone Number [facility] [address] [address], [place] * (ABNORMAL) Porsha-Perea virus (EBV) antibody, IgG (05/30/2025 10:36 AM EDT) Pathologist [facility] EBV VCA, IgG 442.00(H) U/mL [facility] [address] Comment: (NOTE) U/mL Interpretation ---- <18.00 Negative 18.00-21.99 Equivocal >21.99 Positive Blood (Blood) 05/30/2025 10: 36 AM EDT 05/30/2025 12:[address] [facility] Jodi Donnelly PA-C NON CULTURE MICROBIO LOGY Final Result Performing Organization Address [facility] de Phone Number [facility] [address] [address], [place] * Zinc (05/30/2025 10:36 AM EDT) Pathologist [facility] Zinc, S 66 60 - 106 mcg/dL [facility] Comment: (NOTE) ADDITIONAL INFORMATION This test was developed and its performance characteristics determined by [facility] in a manner consistent with CLIA requirements. This test has not been cleared or approved by the U.S. Food and Drug Administration. Blood 05/30/2025 10:3 6 AM EDT 05/30/2025 12:49 PM EDT Deborah Cowan CODING AUDITOR LAB BLOOD ORDERAB LES Final Result Performing Organization Address [facility] Co de Phone Number [facility] MED/PATH [facility] [address] [place] [address] * Rubella antibody, IgG ([facility] ,BWF ,DF ,[place] ,[place] ,MEEI ,[facility] ,[facility]) (05/30/2025 10:36 AM EDT) RUBELLA AB, IGG 3.66 Index QUES [employer] [address] Comment: (NOTE) Index Interpretation ----- <0.90 Not consistent with immunity 0.90-0.99 Equivocal > or = 1.00 Consistent with immunity The presence of rubella IgG antibody suggests immunization or past or current infection with rubella virus. Blood (Blood) 05/30/2025 10: 36 AM EDT 05/30/2025 12:53 PM EDT Jodi Donnelly PA-C NON CULTURE MICROBIO LOGY Final Result [facility] [address],[place] [address] * Varicella-zoster (VZV) antibody, IgG (05/30/2025 10:36 AM EDT) Varicella Ab, IgG 27.20 S/CO [employer] [address] Comment: (NOTE) Signal to Cut-off S/CO [...] MICROBIO LOGY Final Result Performing Organization Address City/[facility]/ZIP Co de Phone Number [facility],[place] [address], [facility] * Copper, blood (05/30/2025 10:36 AM EDT) Pathologist [facility] Copper, serum 117 73 - 129 mcg/dL [facility] Comment: (NOTE) ADDITIONAL INFORMATION This test was developed and its performance characteristics determined by [facility] in a manner consistent with CLIA requirements. This test has not been cleared or approved by the U.S. Food and Drug Administration. Blood (Blood) 05/30/2025 10: 36 AM EDT 05/30/2025 12:46 PM EDT Deborah Cowan CODING AUDITOR LAB BLOOD ORDERAB LES Final Result Performing Organization Address [facility]/ZIP Co de Phone Number [facility] LAB MED/PATH [facility] [address] [place] [address] * (ABNORMAL) Cytomegalovirus (CMV) antibody, IgG (05/30/2025 10:36 AM EDT) Pathologist [facility] Cytomegalovirus Ab, IgG >10.00(H) U/mL [employer] [facility] Comment: (NOTE) U/mL Interpretation ----- <0.60 Negative 0.60-0.69 Equivocal > or = 0.70 Positive A positive result indicates that the patient has antibody to CMV. It does not differentiate between an active or past infection. Blood (Blood) 05/30/2025 10: 36 AM EDT 05/30/2025 12:46 PM EDT us Jodi LANG-C NON CULTURE MICROBIO LOGY Final Result [facility] [facility] [address] FLO[address],[place] [address], [facility] * (ABNORMAL) Comprehensive metabolic panel (05/30/2025 10:36 AM EDT) SODIUM 137 135 - 145 mmol/L [facility] POTASSIUM 3.7 3.4 - 5.0 mmol/L [facility] CHLORIDE 103 98 - 108 mmol/L [facility] CO2 21(L) 23 - 32 mmol/L [facility] BUN 9 8 - 25 mg/dL [facility] CREATININE 0.89 0.60 - 1.30 mg/dL [facility] Comment:Icteric GLUCOSE 76 70 - 110 mg/dL [facility] ALBUMIN 3.5 3.3 - 5.0 g/dL [facility] TOTAL PROTEIN 8.1 6.0 - 8.3 g/dL [facility] CALCIUM 9.5 8.5 - 10.5 mg/dL [facility] ALKALINE PHOSPHATASE 321(H) 45 - 115 U/L [facility] TOTAL BILIRUBIN 8.0(H) 0.0 - 1.0 mg/dL [facility] AST 89(H) 10 - 40 U/L [facility] ALT 80(H) 10 - 55 U/L [facility] GLOBULIN 4.6(H) 1.9 - 4.1 g/dL [facility] EGFR 106 >59 mL/min/1. 73m2 [facility] Comment:Estimated glomerular filtration rate calculated using the CKD-EPI refit equation. ANION GAP 13 3 - 17 mmol/L [facility] Blood 05/30/2025 10:3 6 AM EDT 05/30/2025 12:53 PM EDT us Jodi LANG-C LAB BLOOD ORDERABLES Final Result [facility] [address] [place] [address] * Niacin (05/30/2025 10:36 AM EDT) Nicotinic Acid (Niacin) <5.0 Cutoff:<5 .0 ng/mL [facility] MED/PATH [facility] Nicotinamide 15.2 5.0 - 48.0 ng/mL [facility] MED/PATH [facility] Nicotinuric Acid <5.0 Cutoff:<5 .0 ng/mL [facility] MED/PATH [place] Comment: (NOTE) ADDITIONAL INFORMATION Testing performed by Liquid Chromatography-Tandem Mass Spectrometry (LC-MS/MS) This test was developed and its performance characteristics determined by [facility] in a manner consistent with CLIA requirements. This test has not been cleared or approved by the U.S. Food and Drug Administration. Blood 05/30/2025 10:3 6 AM EDT 05/30/2025 12:49 PM EDT Deborah Cowan [facility] LAB BLOOD ORDERAB LES Final Result [facility] MED/PATH [facility] [address] [place] [address] * Measles antibody, IgG (05/30/2025 10:36 AM EDT) [facility] Measles Ab titer, IgG >300.00 AU/mL [facility] Comment: (NOTE) AU/mL Interpretation ----- <13.50 Not consistent with immunity 13.50-16.49 Equivocal >16.49 Consistent with immunity The presence of measles IgG suggests immunization or past or current infection with measles virus. For additional information, please refer to http://education.[employer]/faq/DRY264 (This link is being provided for informational/ educational purposes only.) Blood (Blood) 05/30/2025 10: 36 AM EDT 05/30/2025 12:46 PM EDT Jodi Donnelly PA-C NON CULTURE MICROBIO LOGY Final Result [facility] [facility] [address]LO[address],[place] [address] * T spot TB test (05/30/2025 10:36 AM EDT) [facility] T-SPOT.TB Negative Negative [facility] Comment: (NOTE) A negative test result does [...] Spot Count Corrected For Neg Control 2 [facility] Panel B Spot Count Corrected For Neg Control 3 [facility] Negative Control Passed [facility] Positive Control Passed [facility] Comment: (NOTE) For additional information, please refer to http://education.[employer]/faq/TRD013 (This link is being provided for informational/ educational purposes only.) Blood 05/30/2025 10:3 6 AM EDT 05/30/2025 12:49 PM EDT Jodi Donnelly PA-C LAB BLOOD ORDERABLES Final Result [employer] [address] [place], [place] * HIV-1/2 antigen/antibody (05/30/2025 10:36 AM EDT) Pathologist [facility] HIV 1/2 AB/AG Non-Reac tive Non-Reac tive [facility] Comment: A Non-Reactive result does not [...] 6 AM EDT 05/30/2025 12:49 PM EDT [employer] V I Oyarieler PA-C LAB BLOOD ORDERABLES Final Result Performing Organization Address [facility] Co de Phone Number [address] [address] * Hepatitis C antibody, qualitative (05/30/2025 10:36 AM EDT) HCV ANTIBODY Negative Negative [facility] Comment:Antibodies to HCV no t detected. Does not exclude the possibility of exposure to HCV. Blood 05/30/2025 10:3 6 AM EDT 05/30/2025 12:49 PM EDT Loganer PA-C LAB BLOOD ORDERABLES Final Result Performing Organization Address [facility]/ZIP Co de Phone Number [address] [address] * Methylmalonic acid, serum (05/30/2025 10:36 AM EDT) METHYLMALONIC ACID 0.16 <=0.40 nmol/mL [facility] DPT OF LAB MED AND PAT+ Comment: (NOTE) ADDITIONAL INFORMATION This test was developed and its performance characteristics determined by [facility] in a manner consistent with CLIA requirements. This test has not been cleared or approved by the U.S. Food and Drug Administration. Blood 05/30/2025 10:3 6 AM EDT 05/30/2025 12:49 PM EDT [facility] BLOOD ORDERAB LES Final Result [facility] DPT OF LAB MED AND PAT+ [address] [place] [address] * Iron and iron binding capacity (05/30/2025 10:36 AM EDT) IRON 101 45 - 160 ug/dL [facility] IRON BINDING CAPACITY 301 230 - 404 ug/dL [facility] TRANSFERRIN SATURAT. 34 14 - 50 % [facility] Blood 05/30/2025 10:3 6 AM EDT 05/30/2025 12:53 PM EDT Jodi Donnelly PA-C LAB BLOOD ORDERABLES Final Result Performing Organization Address City/[facility]/ZIP Co de Phone Number [facility] [address] [place] [address] * Ceruloplasmin (05/30/2025 10:36 AM EDT) CERULOPLASMIN 32 20 - 60 mg/dL [facility] Blood 05/30/2025 10:3 6 AM EDT 05/30/2025 12:49 PM EDT [facility] LAB BLOOD ORDERAB LES Final Result Performing Organization Address City/[facility]/ZIP Co de Phone Number [facility] [address] [place] [address] * (ABNORMAL) Toxicology screen, urine (05/30/2025 10:36 AM EDT) URINE AMPHETAMINES Negative Negative [facility] URINE BENZODIAZEPINE Positive(A) Negative [facility] URINE COCAINE METAB Negative Negative [facility] URINE OPIATES Negative Negative [facility] Comment:This assay is not se nsitive for detection of oxycodone and oxymorphone. URINE OXYCODONE Negative Negative [facility] Fentanyl, urine Negative Negative [facility] URINE CREATININE 207 mg/dL [facility] Urine (Urine) 05/30/2025 10: 36 AM EDT 05/30/2025 5:17 PM EDT Jodi Donnelly PA-C URINE ORDERABLES Fin al Result Performing Organization Address [facility] Co de Phone Number [facility] [address] [facility] [place] [address] * Vitamin A (05/30/2025 10:36 AM EDT) VITAMIN A 42.4 32.5 - 78.0 mcg/dL [facility] Comment: (NOTE) ADDITIONAL INFORMATION This test was developed and its performance characteristics determined by [facility] in a manner consistent with CLIA requirements. This test has not been cleared or approved by the U.S. Food and Drug Administration. Blood 05/30/2025 10:3 6 AM EDT 05/30/2025 12:49 PM EDT Deborah Cowan [facility] LAB BLOOD ORDERAB LES Final Result Performing Organization Address [facility] Co de Phone Number [facility]PATH [facility] [address] [place] [address] * (ABNORMAL) Selenium (05/30/2025 10:36 AM EDT) SELENIUM, SERUM 100(L) 110 - 165 mcg/L [facility] Comment: (NOTE) ADDITIONAL INFORMATION This test was developed and its performance characteristics determined by [facility] in a manner consistent with CLIA requirements. This test has not been cleared or approved by the U.S. Food and Drug Administration. Blood 05/30/2025 10:3 6 AM EDT 05/30/2025 12:49 PM EDT Deborah Cowan [facility] LAB BLOOD ORDERAB LES Final Result Performing Organization Address City/[facility] Co de Phone Number [facility] LAB MED/PATH [address] [place] [address] * AFP (non-maternal specimens) (05/30/2025 10:36 AM EDT) AFP (NON-MATERNAL) 5.9 <7.9 ng/mL [facility] Comment: Note: Reference interval does not [...] BLOOD ORDERABLES Final Result Performing Organization Address City/[facility] Co de Phone Number [address] [address] * Hepatitis B core antibody, total (05/30/2025 10:36 AM EDT) HEP B CORE AB, TOT Negative Negative [facility] Comment:A nonreactive final interpretation indicates that anti-HBc antibodies were not detected in the sample. It is possible that the individual is not infected with HBV. Blood 05/30/2025 10:3 6 AM EDT 05/30/2025 12:49 PM EDT Jodi Gabe Donnelly PA-C LAB BLOOD ORDERABLES Final Result Performing Organization Address City/[facility] Co de Phone Number [address] [address] * Syphilis antibody screen (05/30/2025 10:36 AM EDT) Pathologist [facility] Syphilis Antibody Screen Non-React jeff Non-React jeff [facility] Comment: INTERPRETATION: Negative for syphilis antibodies. NOTE: This specimen was screened for syphilis using a specific immunoassay for the detection of IgG and IgM Treponema pallidum antibodies. This test has replaced the Non-Treponemal RPR as the initial screening antibody test for syphilis at [facility], because it is more sensitive and specific. Blood 05/30/2025 10:3 6 AM EDT 05/30/2025 12:49 PM EDT Jodirafia Bernal Jose Guadalupeer PA-C LAB BLOOD ORDERABLES Final Result Performing Organization Address [facility] Co de Phone Number [address] [address] * Vitamin C (05/30/2025 10:36 AM EDT) [facility] VITAMIN C 1.1 0.4 - 2.0 mg/dL [facility]PATH [facility] Comment: (NOTE) ADDITIONAL INFORMATION This test was developed and its performance characteristics determined by [facility] in a manner consistent with CLIA requirements. This test has not been cleared or approved by the U.S. Food and Drug Administration. Blood 05/30/2025 10:3 6 AM EDT 05/30/2025 12:39 PM EDT Deborah Cowan [facility] LAB BLOOD ORDERAB LES Final Result Performing Organization Address City/[facility] Co de Phone Number [facility]/PATH [facility] [address] [place] [address] * 25-OH vitamin D (05/30/2025 10:36 AM EDT) 25 [place] VIT D (TOTAL) 38 20 - 80 ng/mL [facility] Blood 05/30/2025 10:3 6 AM EDT 05/30/2025 12:49 PM EDT Deborah Cowan [facility] LAB BLOOD ORDERAB LES Final Result Performing Organization Address City/[facility]/ZIP Co de Phone Number [address] [address] * Hepatitis B surface antibody (05/30/2025 10:36 AM EDT) HBV SURFACE AB,QUANT <3.31 mIU/mL [facility] Comment:Results less than 12 .00 mIU/mL are not consistent with protective immunity. Results of 12.00 mIU/mL or more indicate protective immunity. HBV SURFACE AB,QUAL Negative [facility] Comment:Patient is considere d not immune to HBV infection. Blood 05/30/2025 10:3 6 AM EDT 05/30/2025 12:49 PM EDT Jodi Donnelly PA-C LAB BLOOD ORDERABLES Final Result Performing Organization Address [facility] Co de Phone Number [address] [address] * Hepatitis B surface antigen (05/30/2025 10:36 AM EDT) HBV SURFACE ANTIGEN Negative Negative [facility] Blood 05/30/2025 10:3 6 AM EDT 05/30/2025 12:49 PM EDT Jodi Donnelly PA-C LAB BLOOD ORDERABLES Final Result Performing Organization Address City/[facility] Co de Phone Number [address] [address] * (ABNORMAL) CBC and differential (05/30/2025 10:36 AM EDT) WBC 8.63 4.00 - 11.00 K/uL [facility] RBC 3.76(L) 4.50 - 5.90 M/uL [facility] HGB 12.3(L) 13.5 - 17.5 g/dL [facility] HCT 38.1(L) 41.0 - 53.0 % [facility] PLT 187 150 - 450 K/uL [facility] MCV 101.3(H) 80.0 - 100.0 fL [facility] MCH 32.7(H) 27.0 - 31.0 pg [facility] MCHC 32.3 32.0 - 36.0 g/dL [facility] RDW 14.1 11.5 - 14.5 % [facility] MPV 12.4(H) 8.4 - 12.0 fL [facility] NRBC 0.00 0.00 /100 WBCs [facility] ABSOLUTE NRBC 0.00 0.00 K/uL [facility] DIFF METHOD Auto [facility] NEUTS 61.8 48.0 - 76.0 % [facility] LYMPHS 23.2 18.0 - 41.0 % [facility] MONOS 6.3 4.0 - 11.0 % [facility] EOS 7.3(H) 0.0 - 5.0 % [facility] BASOS 0.9 0.0 - 1.5 % [facility] % IMMATURE GRANS 0.5 0.0 - 0.9 % [facility] ABSOLUTE NEUTS 5.34 1.92 - 7.60 K/uL [facility] ABSOLUTE LYMPHS 2.00 0.72 - 4.10 K/uL [facility] ABSOLUTE MONOS 0.54 0.16 - 1.10 K/uL [facility] ABSOLUTE EOS 0.63(H) 0.00 - 0.50 K/uL [facility] ABSOLUTE BASOS 0.08 0.00 - 0.15 K/uL [facility] ABS IMMATURE GRANS 0.04 0.00 - 0.09 K/uL [facility] Blood 05/30/2025 10:3 6 AM EDT 05/30/2025 12:53 PM EDT us Jodi Donnelly PA-C LAB BLOOD ORDERABLES Final Result [address] [address] * Type and Screen (ABO,Rh,Antibody Screen) (05/30/2025 10:36 AM EDT) Expiration Date of Sample 06/02/2025 11:59 PM [facility] ABO O 05/30/2025 2:17 PM EDT [facility] Rh Positive 05/30/2025 2:17 PM EDT [facility] Comment:Additional Specimen for ABORH Needed for RBC Xmtch Resulting Agency [facility] Antibody Screen Negative 05/30/2025 2:22 PM EDT [facility] Blood 05/30/2025 10:3 6 AM EDT 05/30/2025 1:20 PM EDT Jodi Donnelly PA-C BLOOD BANK TEST ORDE RABLES Final Result Performing Organization Address [facility] Co de Phone Number [address] [address] * C-Reactive Protein (05/30/2025 10:36 AM EDT) [facility] C REACTIVE PROTEIN 7.7 <8.0 mg/L [facility] Comment:This reference range is for the evaluation of inflammation. Order High Sensitivity CRP for cardiac risk status evaluation. Blood 05/30/2025 10:3 6 AM EDT 05/30/2025 12:53 PM EDT Deborah Cowan CODING AUDITOR LAB BLOOD ORDERAB LES Final Result Performing Organization Address [facility]/ZIP Co de Phone Number [address] [address] * Vitamin E (05/30/2025 10:36 AM EDT) VIT E, A-TOCOPHEROL 10.7 5.5 - 17.0 mg/L [facility] MED/PATH [facility] Comment: (NOTE) ADDITIONAL INFORMATION This test was developed and its performance characteristics determined by [facility] in a manner consistent with CLIA requirements. This test has not been cleared or approved by the U.S. Food and Drug Administration. Blood 05/30/2025 10:3 6 AM EDT 05/30/2025 12:49 PM EDT [facility] BLOOD ORDERAB LES Final Result Performing Organization Address [facility] de Phone Number [facility] MED/PATH [facility] [address] [place] [address] * Vitamin B1 (thiamine) (05/30/2025 10:36 AM EDT) VITAMIN B1 134 70 - 180 nmol/L [facility] LAB MED/PATH [facility] Comment: (NOTE) ADDITIONAL INFORMATION This test was developed and its performance characteristics determined by [facility] in a manner consistent with CLIA requirements. This test has not been cleared or approved by the U.S. Food and Drug Administration. Blood 05/30/2025 10:3 6 AM EDT 05/30/2025 12:47 PM EDT [facility] BLOOD ORDERAB LES Final Result Performing Organization Address [facility] de Phone Number [facility] LAB MED/PATH [place] [address] [place] [address] * (ABNORMAL) Vitamin B6 (05/30/2025 10:36 AM EDT) VITAMIN B6 2(L) 5 - 50 mcg/L [facility] LAB MED/PATH [facility] Comment: (NOTE) ADDITIONAL INFORMATION This test was developed and its performance characteristics determined by [facility] in a manner consistent with CLIA requirements. This test has not been cleared or approved by the U.S. Food and Drug Administration. Blood 05/30/2025 10:3 6 AM EDT 05/30/2025 12:53 PM EDT Deborahdaylin Boyce [facility] LAB BLOOD ORDERAB LES Final Result [facility] LAB MED/PATH [address] [place] [address] * Homocysteine (05/30/2025 10:36 AM EDT) HOMOCYSTEINE, TOTAL 7.5 0 - 14.2 umol/L [facility] Blood 05/30/2025 10:3 6 AM EDT 05/30/2025 12:[address] [facility] Deborah Boyce [facility] LAB BLOOD ORDERAB LES Final Result Performing Organization Address [facility] Co de Phone Number [address] [address] * Folate (05/30/2025 10:36 AM EDT) FOLIC ACID >20.0 >4.7 ng/mL [facility] Blood 05/30/2025 10:3 6 AM EDT 05/30/2025 12:46 PM EDT Result [facility] LAB BLOOD ORDERAB LES Final Result Performing Organization Address City/[facility] Co de Phone Number [address] [address] * (ABNORMAL) Ferritin (05/30/2025 10:36 AM EDT) FERRITIN 718(H) 20 - 300 ug/L [facility] Blood 05/30/2025 10:3 6 AM EDT 05/30/2025 12:53 PM EDT Jodi Gabe Scherrer PA-C LAB BLOOD ORDERABLES Final Result Performing Organization Address City/[facility]/ZIP Co de Phone Number [address] [address] * Vitamin B12 (05/30/2025 10:36 AM EDT) VITAMIN B12 >2000 >231 pg/mL [facility] Blood 05/30/2025 10:3 6 AM EDT 05/30/2025 12:53 PM EDT Deborah Cowan [facility] LAB BLOOD ORDERAB LES Final Result Performing Organization Address [facility] Co de Phone Number [address] [address] * (ABNORMAL) Lipid panel (05/30/2025 10:36 AM EDT) Pathologist [facility] HDL 31(L) 35 - 100 mg/dL [facility] CHOLESTEROL 231(H) <200 mg/dL [facility] TRIGLYCERIDES 186(H) 40 - 150 mg/dL [facility] LDL 163(H) 50 - 129 mg/dL [facility] CARDIAC RISK RATIO 7.5(H) 0.0 - 5.0 [facility] NON-HDL CHOLESTEROL 200 mg/dL [facility] Comment:Guidelines suggest a non-HDL cholesterol goal 30 mg/dL higher than the patient-specific LDL goal. Blood 05/30/2025 10:3 6 AM EDT 05/30/2025 12:53 PM EDT Jodi Donnelly PA-C LAB BLOOD ORDERABLES Final Result Performing Organization Address [facility]/ZIP Co de Phone Number [address] [address] * Biliary tract malignancy (05/15/2025 5:26 PM EDT) Only the most recent of3 resultswithin the time period is included. Pathology [...] carcinoma should be pursued, as clinically indicated. [employer] Bladder Cancer Kit probes were used to detect aneuploidy for chromosomes 3, 7, and 17 via fluorescence in situ hybridization (FISH). Results from this test are intended for use in conjunction with, and not in lieu of, current standard diagnostic procedures as an aid for initial diagnosis of pancreatobiliary carcinoma or related sources. This test was developed and its performance characteristics determined by [facility]. It has not been cleared or approved by the US Food and Drug Administration. This test was performed in a CLIA certified laboratory and is intended for clinical purposes. 05/24/25 Reviewed by: Jonny Hurst 05/25/25 Verified By: Rachana Nicole M.D. electronic signature I certify that I personally conducted the evaluation on the above specimen(s) and have rendered the above interpretation(s). [facility], Department of Pathology [facility] [address] [facility], [place] [address] [facility] [address] Pancreatobiliary FISH Comments This test has been scanned by the [employer] automated slide screener and reviewed by the pathologist (CPT 28057). Controls performed as expected. TC:102 ISCN: nuc lynette(CEP3,CEP7,9p21,CEP17)x2 Pancreatobiliary FISH Clinical History Clinical Information: No clinical information provided. Performed By: [facility] [address] [place] [address] [employer] Developer: Sebastian Kaba MD, PhD CLIA Number: [id number] Pancreatobiliary FISH Specimen Source Hepatic Duct Brushing, Left [facility] 05/15/2025 5:26 PM EDT 05/15/2025 5:26 PM EDT us Geovani Sun MD LAB BLOOD ORDERABLES Final Res ult Performing Organization Address City/[facility]/[place] [address] [address] [place] [address] * Chemistry Comment (05/15/2025 5:26 PM EDT) Only the most recent of3 resultswithin the time period is included. Comments (Chemistry) L. HEPATIC DUCT BRUSH [facility] 05/15/2025 5:26 PM EDT 05/15/2025 5:26 PM EDT us Geovani Sun MD LAB BLOOD ORDERABLES Final Res ult Performing Organization Address City/[facility]/ZIP Co de Phone Number [address] [address] * Non-Benefits Consulting Analyst Cytology (05/15/2025 2:40 PM EDT) [place] [address] Non Benefits Consulting Analyst Cytology Report Patient Name: GIOVANNA NIDAYE : 1975 (Age: 49) Sex: M Institution: [facility] Location: [facility] Date of Collection: 05/15/2025 Date of [...] Histiocytes. Electronically Signed Out By: Erlinda Rodriguez [facility](ASCP)MB By his/her signature above, the pathologist listed [...] ThinPrep slide made. One ThinPrep vial to Asencio/Allison 208 for NGS. One ThinPrep vial with brush to [facility] for FISH. B. BILIARY BRUSH, RIGHT ANTERIOR HEPATIC: Received ThinPrep vial with brush labeled GIOVANNA NDIAYE, . One ThinPrep slide made. One ThinPrep vial to [facility]io/Allison 208 for NGS. One ThinPrep vial with brush to [facility] for FISH. C. BILIARY BRUSH, LEFT HEPATIC DUCT: Received ThinPrep vial with brush labeled GIOVANNA NDIAYE, . One ThinPrep slide made. One ThinPrep vial to Asencio/Dipti 208 for NGS. One ThinPrep vial with brush to [facility] for FISH. [facility] Clinical History [facility]SC [facility] Final Diagnosis Summary [facility] Final Diagnosis A. BILIARY BRUSH, RIGHT POSTERIOR HEPATIC: SPECIMEN [...] CELLS IDENTIFIED. DIAGNOSIS: Reactive ductal cells. Histiocytes. [facility] Gross Description A. BILIARY BRUSH, RIGHT POSTERIOR HEPATIC: Received [...] ThinPrep slide made. One ThinPrep vial to [facility]/Allison 208 for NGS. One ThinPrep vial with brush to [facility] for FISH. [facility] Conversion Type 05/15/2025 2 :40 PM EDT 05/15/2025 2:40 PM EDT Geovani Sun MD CYTOLOGY ORDERABLES Edited Res ult - Final [facility] [address] [place] [address] * FL ENDOSCOPIC RETROGRADE BILIARY ONLY (05/15/2025 11:18 AM EDT) Anatomical Region Laterality Modality Abdomen Radio Fluoroscop y 05/15/2025 1:55 PM EDT Narrative 05/15/2025 1:55 PM EDT Dose (mGy): 826219 Dose Area Product (DAP): 7476.9 Dose Area Product (DAP) Units: uGy.m2 Fluoro time (min): 12.1 Radimetrics Dose Report: CTDIvol: 0 mGy. DLP: 0 mGy-cm. Procedure Note Lean Sensei, Dictation - 05/15/2025 Dose (mGy): 638955 Dose Area Product (DAP): 7476.9 Dose Area Product (DAP) Units: uGy.m2 Fluoro time (min): 12.1 Radimetrics Dose Report: CTDIvol: 0 mGy. DLP: 0 mGy-cm. us Geovani Sun MD IMG FL EXAMS Final Result * ANES ETT DOUBLE LUMEN - AIRWAY LDA (05/15/2025 10:29 AM EDT) Narrative Carley Oropeza CRNA - 05/15/2025 10:29 AM EDT Carley Oropeza CRNA 05/15/2025 10:39 AM Airway Placement Procedure Note: Patient was not difficult to intubate. Procedure performed by: fellow/resident/JR. SYSTEMS ADMINISTRATOR Anesthesiologist: Felix Major MD, PhD Fellow/Resident/JR. SYSTEMS ADMINISTRATOR: Carley Oropeza CRNA Airway procedure initiated at:05/15/2025 [...] observed? no us Felix Major MD, PhD OR ANESTHESIA Final Res ult * ENDOSCOPY PROCEDURE (05/15/2025 9:07 AM EDT) 05/15/2025 9:07 AM EDT Narrative Transcriptions Geovani Sun MD - 05/15/2025 9:07 AM EDT Gastrointestinal Endoscopy Unit Patient Name: Giovanna Ndiaye Exam Date: 05/15/2025 9:07 AM Date of : 1975 Admit Type: Outpatient Age: 49 Room: [place] [address] Gender: Male Note Status: Finalized Attending MD: [...] patient tolerated the procedure well. Findings: The admissions advisor film was normal. The scope was advanced [...] performed the entire procedure. Geovani Sun MD, [id number] 05/15/2025 11:33:40 AM The attending physician was present throughout the entire procedure. Number of Addenda: 0 Note Initiated On: 05/15/2025 9:07 AM Peyman Dunn MD GI PROCEDURE ORDERABLES Final Result * Molecular Diagnostics (05/15/2025 12:00 AM EDT) Only the most recent of3 resultswithin the time period [place] [address] Merry Go Round Attendant: Steven Dent MD CLIA ID # [id number] Molecular Pathology Report Solid SNAPSHOT Assay Patient Name: GIOVANNA NDIAYE : 1975 (Age: 49) Sex: M Institution: [facility] Location: [facility] Date of Collection: 05/15/2025 Date of Reported: 05/27/2025 21:56 Results To: Geovani Sun MD CLINICAL HISTORY: Gastrointestinal Tract (Biliary Tract) Left Hepatic Duct Brushing SPECIMENS RECEIVED: A: Molecular test for Solid SNAPSHOT Assay GROSS DESCRIPTION: Biliary Geff SLIDE-BLOCK DESCRIPTION: [id number], Part C TEST - [id number] Assay INDICATION FOR TEST: Gastrointestinal Tract (Biliary Tract) Left Hepatic Duct Brushing SPECIMEN(S) TESTED: Biliary Geff ([facility], [place], [place], [place]) RESULTS: Targeted DNA next generation sequencing (NGS) using Anchored Multiplex PCR (AMP) detected no reportable variants. Copy Number Variants: Not validated for biliary brush specimens. Tumor Mutation [place]: Not validated for biliary brush specimens. INTERPRETATION: [...] number detection in genomic DNA using the [employer] platform and Illumina NextSeq next generation sequencing (NGS). Briefly, a board-certified molecular pathologist performed microscopic review of routine H&E-stained sections using validated digital pathology or traditional microscopic workflows. The appropriate region(s) of interest were identified and circled, followed by tumor enrichment via macrodissection prior to nucleic acid extraction. The [employer] VariantSeemage Rowe Solid Tumor v2 protocol was used to target the coding sequence of genes listed below. Illumina NextSeq 2 x 150 base paired-end sequencing reads were demutiplexed to generate FASTQ files that were transferred to the [employer] pipeline for read alignment to the [...] filtering, counting, and fitting based on the [employer] TMB model to provide a score that [...] FOXL2, FUBP1, GNA11, GNAQ, GNAS, H3F3A, H3F3B, EBIM7H3I, RWNC6L5Z, HNF1A, HRAS, IDH1, IDH2, JAK1, JAK2, JAK3, KDM6A, KDR, KEAP1, KIT, KLF4, KMT2C, KMT2D (MLL2), KRAS, LZTR1, MAP2K1 (MEK1), MAP2K2 (MEK2), MAP3K1, MDM2, MDM4, MED12, MEN1, MET, MLH1, MPL, MRE11A, MSH2, MSH3, MSH6, MTOR, MUC16, MUTYH, MYC, MYCN, NBN, NF1, NF2, NKX2-1, NOTCH1, NOTCH2, NOTCH3, NOTCH4, NPM1, NRAS, NTRK1, NTRK2, NTRK3, PALB2, PBRM1, PDGFRA, PIK3CA, PIK3CB, PIK3R1, PLCB4, PMS2, POLD1, POLE, ZIY2D9H, YJY8P1E, PRKD1, PTCH1, PTEN, PTPN11, RAD50, RAD51, RAD51B, [...] 1.0 REFERENCES: Gopi et al. [place] Med 2014;20(12):1479-8 4. [PMID: [id number]] This test was developed, and its performance characteristics were determined by the [facility]. It has not [...] performed at the [facility], [facility], [address] [place] [address]. Electronically Signed Out By: Miryam Wagner PhD [facility] Clinical History Gastrointestinal Tract (Biliary Tract) Left Hepatic Duct Brushing [facility] Gross Description Biliary Geff [facility] Results\Interp retation TEST - [id number] Assay INDICATION FOR TEST: Gastrointestinal Tract (Biliary Tract) Left Hepatic Duct Brushing SPECIMEN(S) TESTED: Biliary Geff ([facility], [place], [place], [place]) RESULTS: Targeted DNA next generation sequencing (NGS) using Anchored Multiplex PCR (AMP) detected no reportable variants. Copy Number Variants: Not validated for biliary brush specimens. Tumor Mutation [place]: Not validated for biliary brush specimens. INTERPRETATION: [...] number detection in genomic DNA using the [employer] platform and [employer] Care next generation sequencing (NGS). Briefly, a board-certified molecular pathologist performed microscopic review of routine H&E-stained sections using validated digital pathology or traditional microscopic workflows. The appropriate region(s) of interest were identified and circled, followed by tumor enrichment via macrodissection prior to nucleic acid extraction. The [employer] VariantPlex Rowe Solid Tumor v2 protocol was used to target the coding sequence of genes listed below. Illumina NextSeq 2 x 150 base paired-end sequencing reads were demutiplexed to generate FASTQ files that were transferred to the [employer] Analysis pipeline for read alignment to the [...] filtering, counting, and fitting based on the [employer] TMB model to provide a score that [...] FOXL2, FUBP1, GNA11, GNAQ, GNAS, H3F3A, H3F3B, RDDN3A9J, KTKI1Q6V, HNF1A, HRAS, IDH1, IDH2, JAK1, JAK2, JAK3, KDM6A, KDR, KEAP1, KIT, KLF4, KMT2C, KMT2D (MLL2), KRAS, LZTR1, MAP2K1 (MEK1), MAP2K2 (MEK2), MAP3K1, MDM2, MDM4, MED12, MEN1, MET, MLH1, MPL, MRE11A, MSH2, MSH3, MSH6, MTOR, MUC16, MUTYH, MYC, MYCN, NBN, NF1, NF2, NKX2-1, NOTCH1, NOTCH2, NOTCH3, NOTCH4, NPM1, NRAS, NTRK1, NTRK2, NTRK3, PALB2, PBRM1, PDGFRA, PIK3CA, PIK3CB, PIK3R1, PLCB4, PMS2, POLD1, POLE, AEZ9G8O, SWF5P2M, PRKD1, PTCH1, PTEN, PTPN11, RAD50, RAD51, RAD51B, [...] 1.0 REFERENCES: Gopi et al. [place] Med 2014;20(12):1479-8 4. [PMID: [id number]] This test was developed, and its performance characteristics were determined by the [facility]. It has not [...] performed at the [facility], [facility], [address] [place] [id number]. [facility] Slide-Block Description [id number], Part C [facility] Conversion Type 05/15/2025 us Geovani Sun MD PATHOLOGY ORDERABLES Edited Re sult - Final [facility] [address] [place] [address] * Outside Imaging Report Only (05/01/2025) us Scanning Interface Provider IMG XR CHEST Mili l Result * Outside Imaging Report Only (05/01/2025) us Scanning Interface Provider IMG XR CHEST Mili l Result * Outside Imaging Report Only (04/27/2025) us Scanning Interface Provider IMG XR CHEST Mili l Result from Last 3 Months Insurance [facility] MEDICARE REPLACEMENT RICKEY OLSEN [id number] [facility] MEDICARE REPLACEMENT [facility] MED[facility]ARE REPLACEMENT CARE MEDICARE REPLACEMENT [facility] MEDICARE REPLACEMENT [facility] ONE CARE MEDICARE REPLACEMENT Care Teams Call Center Professional Relationship Specialty Start Date End Date Peyman Dunn MD [address] [place] [phone] PCP - General Internal Medicine 03/06/24 Additional Source Comments The information contained in this document represents components of the legal health record. It is not the complete legal health record.[facility]
--- OUTSIDE RECORDS SUMMARY | 2025-07-26 15:11 | XMS_ITS | Patient Health Record ---
Author Organization [facility] Address [address] [place] [address] Care Team Providers Care Brick Tosser Name Role Phone Po Peyman VILLA Primary Care Provider Arturo Nelson Unavailable [phone] Nivia Hidalgo Unavailable Unavailable Reason For Referral No Information Plan Of Treatment No Information Insurance Providers Payer Name Payer Address Payer Phone Subscriber Number Group Number Insured Name Patient Relationship to Insured Coverage Start Date Coverage End Date [facility] [address] [place] [address] [id number] GIOVANNA BUTLER Self - patient is the insured
--- OUTSIDE RECORDS SUMMARY | 2025-07-26 15:11 | XMS_ITS | Encounter Summary ---
Author Organization [facility] Address [address] [facility] [address] [facility] [address] [place] [address] Phone Care Team Providers Care Legal Records Manager Name Role Phone Peyman Dunn MD Primary Care Provider [phone] Encounter Details Date Type Department Care Team (Late st Contact Info) Description 07/04/2024 Procedure Pass MRI, [facility] - [address], [address] [place] [phone] Social History Tobacco Use Types Packs/Day Years [...] st Contact Info) Description 06/22/2025 Procedure Pass [facility] [address] [place] [address] 08/06/2025 10:00 AM EST Office Visit [facility] [address] [facility], 5t Floor, [address] [place] [address] Diana Flores MD [address] [facility] [address] [place] [address] [email or web address] 08/06/2025 1:40 PM EST Appointment [facility] Nuclear Cardiology [address] [place] [address] Faustino Dozier MD [address] [address] [email or web address] 08/14/2025 9:00 AM EST Telemedicine [facility] [address] [facility], 5th [place] [address] Merari Ruiz MD [address] [place] [address] [place] [address] [email or web address] 08/20/2025 12:30 PM EST Office Visit [facility] [address] [facility] 3rd [place] [address] Oscar Goyal MD, PhD 243 [place] [address] [email or web address] 08/28/2025 9:30 AM EST Office Visit [facility] Psychiatry Jairon 6 55 [facility], 6th [place] [address] Funmilayo Bustos MD [address] [facility] [address] [place] [phone] [email or web address]@[email or web address] 08/28/2025 2:00 PM EST Appointment [facility] [address] [place] [address] Faustino Dozier MD [address] [address] [email or web address] documented as of this encounter Visit Diagnoses Not on filedocumented in this encounter Care Teams Legal Records Manager Relationship Specialty Start Date End Date Po, Peyman Giles MD [address] [place] [address] PCP - General Internal Medicine 03/06/24 documented as of this encounter Additional Source Comments The information contained in this document represents components of the legal health record. It is not the complete legal health record.[facility]
--- OUTSIDE RECORDS SUMMARY | 2025-07-26 15:11 | XMS_ITS | Encounter Summary ---
Author Organization [facility] Address [address] [place] [address] Phone Care Team Providers Care Hat Copyist Name Role Phone Peyman Dunn MD Primary Care Provider [phone] Encounter Details Date Type Department Care Team (Late st Contact Info) Description 05/15/2025 Procedure Pass [facility] 4 ENDO DEPT [address] [facility], 4th [place] [address] Social History Tobacco Use Types Packs/Day Years [...] st Contact Info) Description 06/22/2025 Procedure Pass [facility] [place] [address] [place] [address] 08/06/2025 10:00 AM EST Office Visit [facility] [address] [facility], 5t Floor, [address] [place] [address] Diana Flores MD [address] [place] [address] [email or web address] 08/06/2025 1:40 PM EST Appointment [facility] Nuclear Cardiology [address] [place] [address] Faustino Dozier MD [address] [address] [email or web address] 08/14/2025 9:00 AM EST Telemedicine [facility] 55 [facility], 5th [place] [address] Merari Ruiz MD [address] [place], [place] [address] [address] Ravi@[email or web address] 08/20/2025 12:30 PM EST Office Visit [facility] [address] [facility] 3rd [place] [address] Oscar Goyal MD, PhD 243 [place] [address] [email or web address] 08/28/2025 9:30 AM EST Office Visit [facility] Psychiat[facility] Jairon 6 55 [facility], 6th [place] [address] Funmilayo Bustos MD 55 [facility] [address] [place] [phone] OTONIEL@[facility] 08/28/2025 2:00 PM EST Appointment [facility] Cardiac 55 [place] [address] Faustino Dozier MD 15 [facility] 5 [place] [address] [email or web address] documented as of this encounter Visit Diagnoses Not on filedocumented in this encounter Care Teams Hat Copyist Relationship Specialty Start Date End Date Po, Peyman Giles MD [address] [place] [phone] PCP - General Internal Medicine 03/06/24 documented as of this encounter Additional Source Comments The information contained in this document represents components of the legal health record. It is not the complete legal health record.[facility]
--- OUTSIDE RECORDS SUMMARY | 2025-07-26 15:11 | XMS_ITS | Encounter Summary ---
Author Organization [facility] Address [address] [place] [address] Phone Care Team Providers Care Chief Chemist Name Role Phone Peyman Dunn MD Primary Care Provider [phone] Encounter Details Date Type Department Care Team (Late st Contact Info) Description 04/12/2025 Procedure Pass [facility] MOE 4 ENDO DEPT [address] [facility], 4th [place] [address] Social History Tobacco Use Types Packs/Day Years [...] Info) Description 06/22/2025 Procedure Pass [facility] Cardiac US [address] [place] [address] 08/06/2025 10:00 AM EST Office Visit [facility] [address] [facility], 5t Floor, [address] [place] [address] Diana Flores MD [address] [place] [address] FARIDEH@[email or web address] 08/06/2025 1:40 PM EST Appointment [facility] Nuclear Cardiology [address] [place] [address] Faustino Dozier MD [address] [address] [email or web address] 08/14/2025 9:00 AM EST Telemedicine [facility] 55 [facility], 5th [place] [address] Merari Ruiz MD [address] [place], [place] [address]th [place] [address] Ravi@[facility]. [facility] 08/20/2025 12:30 PM EST Office Visit [facility] [address] [facility] 3rd [place] [address] Oscar Goyal MD, PhD [address] [place] [address] [email or web address] 08/28/2025 9:30 AM EST Office Visit [facility] Jairon 6 55 [facility], 6th [place] [address] Funmilayo Bustos MD 55 [facility] [address] [place] [phone] [email or web address] 08/28/2025 2:00 PM EST Appointment [facility] Cardiac 55 [place] [address] Faustino Dozier MD 15 [facility] 5 [place] [address] [email or web address] documented as of this encounter Visit Diagnoses Not on filedocumented in this encounter Care Teams Chief Chemist Relationship Specialty Start Date End Date Po, Peyman Giles MD [address] [place] [phone] PCP - General Internal Medicine 03/06/24 documented as of this encounter Additional Source Comments The information contained in this document represents components of the legal health record. It is not the complete legal health record.[facility]
== END 2025-07-26 12:19 | disposition home or self-care (01) ==
LOC: HO.LAB 12:18
PROVIDERS: PCP Internal Medicine; Visit Provider Internal Medicine
DX: R79.89 Other specified abnormal findings of blood chemistry (principal); K83.01 Primary sclerosing cholangitis
CPT/HCPCS: 36415; 80053; 82248; 85025; 85610

== ENCOUNTER 2025-08-03 10:33 | Outpatient (AMB) | payer OTHER, SELFPAY ==
--- OUTSIDE RECORDS SUMMARY | 2024-02-08 09:20 | XMS_ITS ---
Author Organization [facility] Address [address] [place] [address] Care Team Providers Care Supervisor Corduroy Cutting Name Role Phone Peyman Dunn MD Primary Care Provider Arturo Nelson [phone] Nivia Hidalgo Unavailable Unavailable REASON FOR VISIT Patient presents today for ELEVATED LFT'S Encounters Encounter Location Date Provider Diagnosis [facility] [address] [place] [phone] 02/08/2024 Arturo Baxter Plan Of Treatment No Information Progress Notes * RODRICK BUTLEROB:1975 ( 49 yo M)Acc No.[id number]:02/08/2024 Progress Notes Patient: GIOVANNA RAINEY Provider: Russ Baxter MD :1975 A ge:48 Y S ex:Male Date:02/08/2024 Address:[address] [place] [address], [facility] Pcp:Peyman Dunn MD Subjective: * Chief Complaints: * 1 . Patient presents today for ELEVATED LFT'S. * Medical History: Objective: * Vitals: Assessment: Plan: * Treatment: * * The named appointment provid er may or may not be the originator of this progress note, and it is not deemed complete until electronically signed by the appointment provider. Sign off status: Pending * Provider: Russ Baxter MD Date: 0 02/08/2024 Generated for Jo Ann ceja/Subhash/eTransmitting on: 10/03/2024 12:28 PM EST
--- OUTSIDE RECORDS SUMMARY | 2024-04-13 06:30 | XMS_ITS ---
Author Organization [facility] Address [address] [place] [address] Care Team Providers Care Cmm Programmer Name Role Phone Peyman Dunn Primary Care Provider Keely Treviño [phone] Encounters Encounter Location Date Provider Diagnosis [address] [address] 04/13/2024 Keely Charles Plan Of Treatment No Information Progress Notes * Kailash NDIAYE LDOB:1975 (49 yo M)Acc No.[id number]:04/13/2024 Progress Notes Patient: Jade RAINEYrge L Provider: Stanley Charles DPM :1975 A ge:48 Y S ex:Male Date:04/13/2024 Address:[address] [place], [place] [id number] Pcp:Peyman Dunn Subjective: * Chief Complaints: * * Medical History: Objective: * Vitals: Assessment: Plan: * Treatment: * Images: * The named appointment provid er may or may not be the originator of this progress note, and it is not deemed complete until electronically signed by the appointment provider. Sign off status: Pending * Provider: Stanley Charles DPM Date: 0 04/13/2024 Generated for Jo Ann ceja/Subhash/eTransmitting on: 10/03/2024 12:27 PM EST
[2025-08-03 10:39] VITALS: BP 118/74; PULSE 66; TEMP 36.3; O2SAT 99; BMI 25.6
--- NOTE | 2025-08-03 10:39 | A.OFFPC_ITS ---
Vital Signs 08/03/25 10:39 Height 5 ft 8 in Weight 168 lb 6 oz BMI 25.6 BP 118/74 Blood Pressure Location Lt brachial Position Sitting Pulse 66 Pulse Source Pulse Oximeter Temp 97.3 F Temp Source Temporal Artery Scan Pulse Oximetry (%) 99 Oxygen Delivery Method Room Air Intake Visit Reasons: 3mth f/u Allergies azathioprine (From IMURAN) Allergy (Unknown, Verified 08/03/25 10:41) PANCREASE SWELLING infliximab (From REMICADE) Allergy (Unknown, Verified 08/03/25 10:41) DIFFICULTY BREATHING mannitol (Reclast) Allergy (Unknown, Verified 08/03/25 10:41) joint pain silver (From TEGADERM AG MESH) Allergy (Unknown, Verified 08/03/25 10:41) BLISTERS water for injection,sterile (Reclast) Allergy (Unknown, Verified 08/03/25 10:41) joint pain zoledronic acid (Reclast) Allergy (Unknown, Verified 08/03/25 10:41) joint pain Tobacco use date assessed: 08/03/25 Dental Screening Dental Screen Date: 08/03/25 Did you have a dental visit in the last 12 months?: Yes Did you have a dental problem in the last 6 months where you did not have access to dental care?: No Was dental information given to patient?: Patient has dentist [facility] Medical History Elevated LFTs Hx of sigmoidoscopy DVT (deep venous thrombosis) Gastrointestinal fistula Small bowel perforation DVT (deep venous thrombosis) Irritable bowel syndrome 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 Mother Osteoporosis Heart problem HTN (hypertension) Maternal Aunt Breast cancer Social History Household Members: None Housing: House Are you a primary morning caregiver to a significant other at home: No Do you presently have visiting nurse or other home services: Yes Alcohol intake: current Alcohol intake frequency: does not drink Patient Tobacco Use Status: Former Tobacco user Tobacco use type: Cigarette e-Cigarette/Vaping Use: Never Used Second Hand Smoke Exposure: Yes Substance Use Type: Marijuana service: No Current occupational status: disabled Cognitive needs: No Hearing needs: No Vision needs: Yes (Glasses) Questionnaire PHQ-9 Over the last 2 weeks, how often have you been bothered by any of the following problems? 1. Little interest or pleasure in doing things: not at all 2. Feeling down, depressed, or hopeless: not at all 3. Trouble falling or staying asleep, or sleeping too much: nearly every day 4. Feeling tired or having little energy: nearly every day 5. Poor appetite or overeating: nearly every day 6. Feeling bad about yourself - or that you are a failure or have let yourself or your family down: more than half the days 7. Trouble concentrating on things, such as reading the newspaper or watching television: more than half the days 8. Moving or speaking so slowly that other people could have noticed. Or the opposite - being so fidgety or restless that you have been moving around a lot more than usual: more than half the days 9. Thoughts that you would be better off or of hurting yourself in some way: not at all Total score: 15 Source: Developed by Drs. Arturo Guerrero, Aubrie Burciaga, Nickolas Alejo and colleagues, with an educational lacie from [employer]. Thrive Questionnaire Date Thrive assessed: 10/19/24 I am a: Patient What is your living situation today?: I have a place to live, but I am worried about losing it in the future Within the past 12 months, did the food you bought not last and you didn't have the money to get more?: Often true Within the past 12 months, did you worry whether your food would run out before you got money to buy more?: Never true Do you have trouble paying for medicines?: No Do you have trouble getting transportation to medical appointments?: Yes Do you have trouble paying your heating and electricity bill?: Yes Do you have trouble taking care of your child, family member or friend?: Yes Do you have trouble with day-to-day activities such as bathing, preparing meals, shopping, managing finances, etc.?: Yes Are you currently unemployed and looking for a job?: Yes Are you interested in more education?: No Currently or been in a relationship where the following occur: I choose not to answer THRIVE Score: 4 AUDIT C Alcohol Use Questionnaire (AUDIT-C) 1. How often do you have a drink containing alcohol?: Never 3. How often do you have six or more drinks on one occasion?: Never Total Score: 0 HO-7 AMB Questionnaire HO-7 Date HO - 7 assessed: 04/13/25 Feeling nervous, anxious, or on edge: 3 = Nearly every day Not being able to stop or control worryin = Nearly every day Worrying too much about different things: 3 = Nearly every day Trouble relaxin = Nearly every day Being so restless that it is hard to sit still: 1 = Several days Becoming easily annoyed or irritable: 3 = Nearly every day Feeling afraid as if something awful might happen: 2 = More than half the days Total HO-7 score (0-4 normal; 5-9 mild; 10-14 moderate; 15-21 severe): 18 Source: Developed by Drs. Arturo Guerrero, Aubrie Burciaga, Nickolas Alejo and colleagues, with an educational lacie from [employer]. Physical exam (Primary Care) Vital Signs: Last Vital Signs Temp 97.3 F 08/03/25 10:39 Pulse 66 08/03/25 10:39 BP 118/74 08/03/25 10:39 Pulse Ox 99 08/03/25 10:39 Oxygen Delivery Method Room Air 08/03/25 10:39 BMI result Body Mass Index 25.6 Tobacco/Smoking Status: Tobacco use Status Tobacco use date assessed 08/03/25 08/03/25 10:42 Patient Tobacco Use Status Former Tobacco user 08/03/25 10:42 Tobacco use type Cigarette 08/03/25 10:42 e-Cigarette/Vaping Use Never Used 08/03/25 10:42 PHQ-9: PHQ-9 Score PHQ-9: Total score 15 08/03/25 11:06 Thrive Assessment: Date of Thrive Assessment Date Thrive assessed 10/19/24 08/03/25 10:42 Currently or been in a relationship where the following occur: I choose not to answer Const General: alert; No acute distress Eyes Conjunctivae: conjunctivae normal Resp Auscultation: clear to auscultation bilaterally Cardio Rate: regular rate Rhythm: regular rhythm GI Inspection: Yes normal to inspection Extrem General: Yes normal to inspection and No edema Office Procedures Flu Questionnaire Does the patient have a severe egg allergy?: No Does the patient have severe life threatening allergies?: No Does the patient have a fever or illness today?: No Has the patient ever had Guillain-Mcdonald Syndrome?: No Has the patient ever had any past reaction to a flu shot?: No Immunizations Fluarix [id number] (PF) 45 mcg (15 mcg x 3)/0.5 mL IM syringe Performing Provider: Peyman Dunn MD [facility] Administered by: Elsa Martínez CMA on 08/03/25 10:46 Dose Route Admin Location Dispensed Lot Number Expiration Date [facility] Dance Costume Designer 0.5 mL IM Left Deltoid 0.5 mL [id number] 03/26/26 [id number] [employer] Mobile VIS Given Date VIS Provided VIS Publication Date 08/03/25 Single Vaccine 24 Eligibility Eligibility Date Funding Source Not [facility] Eligible 08/03/25 Private Coding Level of Care Code Est Pt Level 4 (11470) Complex EM visit Add On G2211 Diagnoses Hypercholesterolemia E78.00 History of deep vein thrombosis of lower extremity Z86.718 Gastroesophageal reflux disease without esophagitis K21.9 Esophagitis presence: without esophagitis Primary sclerosing cholangitis K83.01 Essential tremor G25.0 Assessment & Plan Assessment & Plan (1) Hypercholesterolemia: Code(s): E78.00 - Pure hypercholesterolemia, unspecified Category: Medical Plan: Avoid fried foods, chicken skin, eggs, butter margarine, pastries and meat. Be it pork or beef they have a lot of cholesterol (2) History of deep vein thrombosis of lower extremity: Comment: IVF filter Code(s): Z86.718 - Personal history of other venous thrombosis and embolism Category: Medical Plan: Continuing with anticoagulation on Eliquis (3) GERD (gastroesophageal reflux disease): Code(s): K21.9 - Gastro-esophageal reflux disease without esophagitis Category: Medical Qualifiers: Esophagitis presence: without esophagitis Qualified Code(s): K21.9 - Gastro-esophageal reflux disease without esophagitis Plan: Avoid the foods that causes that usually spicy foods, tomato products, juices, coffee, soda and foods that your sensitive to. After eating do not lie down, allow 3-4 hours before in lie down. And keep the head of bed above 30 degrees to avoid the acid from going up. (4) Primary sclerosing cholangitis: Code(s): K83.01 - Primary sclerosing cholangitis Category: Medical Plan: Patient is being followed up by Gastroenterology and the transplant team (5) Essential tremor: Code(s): G25.0 - Essential tremor Category: Medical Plan: Neurology knows appreciated placed on propranolol which did not help and now with gabapentin Plan History of Present Illness The patient is a 49-year-old male who presents for a follow-up visit for management of multiple chronic medical conditions. He has a history of deep vein thrombosis, hypertension, GERD, ulcerative colitis, and depression. The patient has a diagnosis of primary sclerosing cholangitis and is being followed by gastroenterology and a transplant team. Since 2023, he has had progressive multifocal intrahepatic and hilar biliary stricturing, which recently progressed to mansoor biliary obstruction. He underwent a transplant evaluation in May 2025. He has a history of essential tremor and is followed by neurology. Treatment with propranolol 40 mg twice daily did not provide improvement, and he is now on gabapentin, which he also reports is not working. Other history includes bilateral Eustachian tube dysfunction, status post right tympanostomy tube placement and removal. The patient is on Eliquis for anticoagulation, which was held for a recent dental procedure involving the extraction of three molars. Recent blood work from July 26 showed normal blood counts, electrolytes, and kidney function, but elevated blood sugar at 113, elevated liver enzymes at 143 and 148, bilirubin of 7.2, and alkaline phosphatase of 306. His eosinophil count has been persistently high, with the last reading at 8.2. For the past few weeks, the patient has noted intermittent pain under his ribs in the liver area, which he notes is not constant and has only been severe once or twice. He also reports feeling nauseous almost daily, which may be associated with eating late. Health Maintenance The patient received his flu shot today and is otherwise up-to-date on tetanus, pneumonia, and COVID-19 vaccinations. Regarding his inquiry about a cannabis permit, he was advised that this practice does not provide them but that he can get a list of certified physicians from a dispensary. He was counseled against smoking cannabis due to an increased risk of bladder cancer and heart attack, with a recommendation for oral forms like edibles instead. 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 - Diet: The patient reports avoiding fried foods and eats a lot of chicken. - He sometimes eats meals late, around 8:00 PM, which he associates with feelings of nausea. - Substance Use: The patient inquired about obtaining a medical cannabis permit. - The liver transplant team advised him to slow down or stop smoking it. Review of Systems - Gastrointestinal: Reports nausea almost every day and intermittent pain in the right upper quadrant, located under the ribs. - Neurological: Reports persistent tremors that have not improved with medication. - Allergic/Immunologic: Reports congestion, particularly when eating or exposed to heat, and episodes of sneezing multiple times in a row. - Musculoskeletal: Denies pain with abdominal palpation. Physical Exam - General: Appears to be doing pretty good. - Respiratory: Lungs are clear to auscultation. - Abdomen: Non-tender to palpation over the right upper quadrant. Results - Labs (July 26): - Blood count: Normal; not anemic. - Eosinophils: 8.2 (elevated; previous values noted as 9.9, 9.5, 9.2). - Electrolytes: Normal. - Kidney function: Normal. - Blood sugar: 113 (elevated). - Liver function tests: ALT/AST 143-148 (elevated), bilirubin 7.2 (elevated), alkaline phosphatase 306 (elevated). - Labs (July 2020): - Cholesterol panel: Normal. - Imaging (MRI, date not specified): - Findings: Probable small gallstone noted. Plan Patient was informed and verbally consented to the use of an ambient scribe for clinic note documentation during this visit. 1. Primary Sclerosing Cholangitis The patient's liver numbers continue to be elevated, with ALT/AST at 143/148 and bilirubin at 7.2, consistent with his diagnosis. He is being managed by gastroenterology and the transplant team. Will continue to monitor, but no changes in primary care management at this time. 2. Cholelithiasis And Right Upper Quadrant Pain The patient reports intermittent pain in the right upper quadrant, and an MRI has shown a probable small gallstone. The patient was counseled to avoid a diet high in fat and fried foods. The patient was instructed to follow up if the pain becomes a persistent problem, at which time an ultrasound can be ordered. It was noted that the gallbladder would be removed during a liver transplant. 3. Nausea The patient reports experiencing nausea almost daily, possibly related to eating late. A prescription for ondansetron 30 tablets was provided for as-needed use. The patient was advised to prioritize regular meals over taking the medication. 4. Essential Tremor The patient is followed by neurology for essential tremor. He reports that neither propranolol nor gabapentin have been effective in controlling his symptoms. Will continue with current management as per neurology. 5. Allergic Rhinitis The patient has symptoms of congestion and sneezing, and labs show a persistent eosinophilia, suggesting an allergic component. He was advised he can take Claritin or Jeanne for allergies, noting that Zyrtec is also an option but may cause drowsiness. 6. 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 Will have the medical hospital sales assist the patient with the appeal process. Discussion Notes I informed the patient that his lab work shows that his kidney function, electr olytes, and blood counts are all normal, but his liver numbers remain significantly elevated, which is expected given his diagnosis of primary sclerosing cholangitis. I explained that his persistently high eosinophil count suggests an underlying allergy problem, and we discussed ihis-koj-lqqudgd treatment options such as Claritin or Jeanne. We discussed his new symptom of intermittent pain in the right upper quadrant, and I noted that his MRI showed a probable small gallstone. I advised him to monitor the pain and let me know if it worsens, at which point an ultrasound would be indicated, and counseled him to avoid high-fat foods. I addressed his request for a medical cannabis permit by explaining that our practice does not provide this service, and he would need to get a list of certified physicians from a dispensary. I strongly advised against smoking cannabis due to the increased risk of bladder cancer and heart attacks, recommending edible forms as a safer alternative, which the transplant team had also discussed with him. Finally, I agreed to provide a refill for his nausea medication and confirmed we would have our staff assist with the appeal regarding the reduction of his BOXING MACHINE OPERATOR hours. Patient Instructions - Continue to follow up with your liver specialist and transplant team for your ongoing liver condition. - We have prescribed ondansetron for your nausea. - You should try to eat regular meals, as this may help prevent nausea. - For your allergy symptoms, you can try an vxxn-cdx-kenxaux medication like Claritin or Jeanne once daily. - You have a small gallstone. - Avoid eating fried foods and foods that are high in fat. - If the pain in the upper right side of your belly gets worse or becomes constant, please call our office. - We do not issue medical cannabis permits. - Do not smoke cannabis due to health risks; edible forms are a safer option. - Our office will help you with the appeal regarding your BOXING MACHINE OPERATOR hours. Orders: Orders Influenza [id number] Immunization Today Z23 - Encounter for immunization Medications: Refilled ondansetron 4 mg PO Q8H PRN 30 tabs 0RF nausea and vomiting
--- OUTSIDE RECORDS SUMMARY | 2025-08-03 12:27 | XMS_ITS ---
Author Organization [facility] Address [address] [place] [phone] Phone Care Team Providers Care Adaptive Physical Education Specialist Name Role Phone Peyman Dunn MD Primary Care Provider [phone] Transplant Episode Liver Candidate [facility] [place] Evaluation began on 05/30/2025 Marked as Deferred on 06/13/2025 Reason: Pending Additional Tests Liver CoordinatorMya Kimbrough RN Fax: N/A Email: [email or web address] Scores Score Value Updated Expires Exceptions/[place] sons CPRA Not available MELD (Calc) 16 07/26/2025 Agdaagux Organ Diagnosis Organ Primary 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 Care Team Name Role Phone Fax Email yMa Kimbrough RN Liver Coordinator [phone] N/A [email or web address] Jiménez [facility] Medical Technologist Blood Bank [phone] N/A [email or web address] Faustino Dozier MD Referring Physician [phone] [email or web address] Merari Ruiz MD Referring Physician [phone] [email or web address] Veronica Roe MD Transplant Surgeon [phone] [email or web address] Deb Samayoa Advertising Editor N/A N/A N/A SUDARSHAN Collins Dietitian [phone] N/A [email or web address] Events Pre-Transplant Referred: 04/27/2025 Evaluation began: 05/30/2025 Committee: 06/13/2025 Appointments (07/03/2025 - 09/02/2025) When With Visit Type Description 08/06/2025 Inf Disease - Sebastian Flores ent 08/06/2025 Cardiology Nuc Stress 08/28/2025 Cardiology [facility] Echo 60 min 08/28/2025 Psychiatry - Eben Bustos ent
--- OUTSIDE RECORDS SUMMARY | 2025-08-03 12:27 | XMS_ITS | Patient Health Record ---
[facility] Address [address] [place] [address] Care Team Providers Care Board Runner Name Role Phone Peyman Dunn Primary Care Provider Keely Treviño Unavailable [phone] Allergies Allergen (clinical drug ingredient) Drug/Non Drug [...] Notes Problem Ulcer of right foot (disorder) ([id number]) Ulcer of right foot with fat layer [...] Insured Coverage Start Date Coverage End Date [facility] [employer] Claims [address] [place] [id number] Kailash Ndiaye Self - patient is the insured Medical (General) History Medical History History ICD Code Anxiety Broken bones Crohns disease Colitis Depression Hiatal hernia High blood pressure Poor circulation Chicken pox Transfusions [facility] Surgical History Surgery Date(Month/Year) colon removed Ostemy reversal right heel surgery colonoscopy Hospitalization History Reason Date(Month/Year) ER [facility]- Broken toe 04/03/24
--- OUTSIDE RECORDS SUMMARY | 2025-08-03 12:27 | XMS_ITS | Clinical Summary ---
Author Organization [facility] Address [address] [place] [address] Care Team Providers Care Oracle Application Consultant Name Role Phone Unavailable Primary Care Provider [...] 06/11/2025 11:00 AM EDT Office Visit [facility] [address] [place] [address] Kem Estrada DDS Dental caries (Primary Dx) [...] Patient Date of Phone Billing Address Personal/Family [address] [place] [id number] COUNTS INCLUDE 234 BEDS AT THE [facility] MEDICAID [facility]
--- OUTSIDE RECORDS SUMMARY | 2025-08-03 12:28 | XMS_ITS | Clinical Summary ---
Author Organization [facility] Address [address] [place] [phone] Phone Care Team Providers [employer] L[employer] Name Role Phone Peyman Dunn MD Primary Care Provider [phone] Allergies Active Allergy Reactions Criticality Noted Date [...] Active ferrous sulfate 325 mg (65 mg hoonah iron) tablet daily. 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 UC (ulcerative colitis) 05/05/2024 Encounters Date Type Department Care Team Description 5 Telephone [facility] [address] [place] [address] Kamini Wayne Appointment 5 Orders Only [facility] [address] [place] [address] Mya Kimbrough, VIDAL Pre-operative cardiovascular examination, high risk surgery (Primary Dx); Encounter for other preprocedural examination; Liver transplant candidate; PSC (primary sclerosing cholangitis) 5 12:00 PM EDT Nutrition [facility] [address] [place] [address] Merari Ruiz MD Witchey, Jessica R, LDN Pre-transplant evaluation for liver transplant (Primary Dx) 5 Documentation [facility] [address] [place] [address] 32473 Deb Samayoa 5 Committee Review [facility] [address] [place] [address] 99890 Mya Kimbrough RN 5 Documentation [facility] [address] [place] [address] 19830 Codi Peerz [facility] 5 2:00 PM EDT Social Work [facility] Social Service Department [address] [place] [address] Merari Ruiz MD Pierre, Brianna [facility] 5 1:30 PM EDT Office Visit [facility] [address] [place] [address] Veronica Roe MD PSC (primary sclerosing cholangitis) (Primary Dx) 5 10:30 AM EDT Nurse Only [facility] [address] [place] [address] 84[address] Merari Ruiz MD Chirgwin, Tina Marie, VIDAL Need for hepatitis B screening test; Screening for human immunodeficiency virus; PSC (primary sclerosing cholangitis); Pre-transplant evaluation for liver transplant; Malnutrition; Malnutrition screen; Nutritional deficiency disorder; Sequelae of unspecified nutritional deficiency; Hepatic cirrhosis, unspecified hepatic cirrhosis type, unspecified whether ascites present; Liver transplant status 5 Documentation [facility] [address] [place] [address] Mya Kimbrough, VIDAL 5 10:15 AM EDT Anesthesia Event [facility] [address] [facility], [address] [place] [address] Felix Major MD, PhD Sharon Guerin RN 5 10:00 AM EDT - 5 11:00 AM EDT Surgery [facility] [address] [facility], [address] [place] [address] Geovani Sun MD ENDOSCOPIC RETROGRADE CHOLANGIOPANCREATOGRAPHY 5 9:40 AM EDT - 5 12:52 PM EDT Hospital Encounter [facility] [address] [facility], [address] [place] [address] Geovani Sun MD Discharge Disposition: Home or Self Care 5 9:30 AM EDT - 5 9:39 AM EDT Hospital Encounter [facility] Endoscopy, Fernando [address] [facility], [address] [place] [address] Geovani Sun MD Discharge Disposition: Home or Self Care 5 Orders Only [facility] [address] [place] [address], [address] [place] [address] Faustino Dozier MD PSC (primary sclerosing cholangitis) (Primary Dx) 5 Procedure Pass [facility] 4 ENDO DEPT [address] [place] [address], [address] [place] [address] 5 11:00 AM EDT Pre-Admission Testing [facility] Pre-Procedure Evaluation Department [place] [address] Geovani Sun MD 5 Telephone [facility] [address] [place] [address], [address] [place] [address] Cahyaningcory as Lakeshia 5 Telephone [facility] [address] [place] [address], [address] [place] [address] Faustino Dozier MD 5 Telephone [facility] [address] [place] [address] Kamini Wayne Appointment from Last 3 Months Immunizations Immunization Administration Dates Next Due INFLUENZA, SPLIT VIRUS, TRIVALENT PF 07/27/2024 Influenza Quadrivalent MDCK Preservative Free IM 08/03/2017 Influenza Quadrivalent Preservative Free IM 06/28,07/21/2022,06/13/2018 Influenza Quadrivalent w/ Preservative IM 2018,09/07/2016 Pneumococcal polysaccharide PPSV23 11/07/2019, Tdap 04/04/2024,10/03/2015 Family History Medical History Relation Comments Arthritis Unspecified 1 arthritis; MGM Cataracts Unspecified 1 cataract; MGM Diabetes Unspecified 1 diabetes mellitu s; MGM Glaucoma Unspecified 1 glaucoma; ? MGM Hypertension Unspecified 1 hypertension; MG M Uncoded Family History Unspecified 1 cancer; m aternal aunt ? type Uncoded Family History Unspecified 2 cardiac; MGM s/p [place] angina Uncoded Family History Unspecified 3 cva; [...] st Contact Info) Description 06/22/2025 Procedure Pass [facility] Cardiac US [address] [place] [address] 08/06/2025 10:00 AM EST Office Visit [facility] [address] [facility], 5t Floor, [address] [place] [address] Diana Flores MD [address] [place] [address] [address] [email or web address] 08/06/2025 1:40 PM EST Appointment [facility] Nuclear Cardiology [address] [place] [address] Faustino Dozier MD [address] [address] [email or web address] 08/14/2025 9:00 AM EST Telemedicine [facility] [address] [facility], [address] [place] [address] Merari Ruiz MD [address] [place] [address] [place] [address] [email or web address]. [facility] 08/20/2025 12:30 PM EST Office Visit [facility] [address] [facility] [address] [place] [address] Oscar Goyal MD, PhD [address] [place] [address] [email or web address] 08/28/2025 9:30 AM EST Office Visit Transplant Psychiatry Jairon 6 [address] [facility], 6th [place] [address] Funmilayo Bustos MD 55 [facility] WRN [address] [place] [phone] [email or web address] 08/28/2025 2:00 PM EST Appointment [facility] Cardiac US [address] [place] [address] Faustino Dozier MD 15 [facility] 5 [place] [address] [email or web address] Health Maintenance Due Date Last Done Comments DEPRESSION SCREENING 1989 PNEUMOCOCCAL VACCINES (0-49 years) (2 of 2 - PCV) 11/07/2020 11/07/2019, 11/23/2017 COLOGUARD 2022 COLONOSCOPY 2022 COLORECTAL CANCER SCREENING 2022 FIT TEST 2022 FOBT 2022 07/31/2020 SIGMOIDOSCOPY 2022 VIRTUAL COLONOSCOPY 2022 INFLUENZA VACCINE (#1) 2025 , 07/20/2023, 07/21/2022, Additional history exists COVID-19 VACCINE (2024- season) 2025 11/20/2024, 03/05/2022, 07/11/2021 CREATININE LEVEL 07/26/2026 07/26/2025, 09/2024, 06/13/2025, Additional history exists SCREENING FOR DIABETES 07/26/2028 07/26/2025 LIPID PANEL 05/30/2030 05/30/2025 Adult Td,Tdap Booster 04/04/2034 04/04/2024, 016 SMOKING STATUS SCREENING (Once After 26 Yrs) Completed 05/24/2025 HEPATITIS C SCREENING Completed 05/30/2025 , 05/30/2025, 05/30/2025, Additional history exists HIV ONE-TIME SCREENING (18-65 YEARS) Completed 05/30/2025 HIB VACCINES Aged Out No longer eligi ble based on patient's age to complete this topic IPV VACCINES Aged Out No longer eligi ble based on patient's age to complete this topic MENINGOCOCCAL VACCINES (ACWY) Aged Out No longer eligible based on patient's age to complete this topic MENINGOCOCCAL VACCINES (B) Aged Out N o longer eligible based on patient's age to complete this topic Medical Devices Implanted 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 Device Identifier Shelf Expiration Date Model / Serial / Lot Ivc Filter Procedures Procedure Name Priority Date/Time Associated Diagnosis Comments OUTSIDE LAB 07/30/2025 EXTERNALLY RESULTED HEMATOLOGY Routine 07/26/2025 12:31 PM EDT PT-INR Routine 07/26/2025 12:31 PM EDT EXTERNALLY RESULTED CHEMISTRY Routine 12:31 PM EDT OUTSIDE LAB 06/29/2025 OUTSIDE LAB 06/29/2025 EXTERNALLY RESULTED HEMATOLOGY Routine 06/27/2025 12:30 PM EDT EXTERNALLY RESULTED CHEMISTRY Routine 12:30 PM EDT PT-INR Routine 06/27/2025 12:30 PM EDT OUTSIDE LAB 06/14/2025 EXTERNALLY RESULTED HEMATOLOGY Routine 06/13/2025 2:20 PM EDT EXTERNALLY RESULTED CHEMISTRY Routine 2:20 PM EDT HC BLOOD TYPING SEROLOGIC ABO Routine 10:36 AM EDT Need for hepatitis B screening test Screening for human immunodeficiency virus PSC (primary sclerosing cholangitis) Pre-transplant evaluation for liver transplant CBC AND DIFFERENTIAL Routine 05/30/2025 10:36 AM EDT Need for hepatitis B screening test Screening for human immunodeficiency virus PSC (primary sclerosing cholangitis) Pre-transplant evaluation for liver transplant COMPREHENSIVE METABOLIC PANE L (CMP) Routine 05/30/2025 10:36 AM EDT Need for [...] Pre-transplant evaluation for liver transplant CYSTATIN C WITH ESTIMATED GLOMERULAR FILTRATION RATE (EGFR) Routine 05/30/2025 10:36 AM EDT Need for hepatitis B screening test Screening for human immunodeficiency virus PSC (primary sclerosing cholangitis) Pre-transplant evaluation for liver transplant C-REACTIVE PROTEIN (CRP) Routine 025 10:36 AM EDT Need for [...] TRACT MALIGNANCY Routine 025 5:19 PM EDT NON-SPINNING MACHINE TENDER CYTOLOGY, NON CSF, NON URINE Routine 05/15/2025 [...] EXTERNALLY RESULTED CHEMISTRY Routine 12:08 PM EDT from Last 3 Months Results * Outside Lab (Non-MGB) (07/30/2025) Only the most recent of10 resultswithin the time period is included. us Scanning Interface Provider LAB BLOOD BKR ORDERA BLES Final Result * EXTERNALLY RESULTED HEMATOLOGY (07/26/2025 12:31 PM EDT) Only the most recent of4 resultswithin the time period is included. WBC - External 6.6 4.8 - 10.8 x10*3/uL Comment:Done [facility] RBC - External 4.74 4.60 - 5.80 x10*6/uL Comment:Done [facility] HCT - External 46.2 42.0 - 52.0 % Comment:Done [facility] HGB - External 15.0 14.0 - 18.0 g/dL Comment:Done [facility] Platelets - External 195 160 - 400 x10*3/uL Comment:Done [facility] MCV - External 97.5 80.0 - 98.0 fL Comment:Done [facility] RDW - External 14.6 11.0 - 16.0 % Comment:Done [facility] Eosinophils - External Neutrophils - External WBC (manual) - External PT-INR (manual) - External) PTT - External Fibrinogen - External Fibrinogen (manual) - External Hemoglobin Electrophoresis - External Hemoglobin A1c - External Absolute Lymphocytes - External PTT - External Protime - External MONO ABS - EXTERNAL BASOS ABS - EXTERNAL Immature Gran - External 07/26/2025 12:3 1 PM EDT us Historical Provider LAB BLOOD ORDERABLES Mili l Result * (ABNORMAL) EXTERNALLY RESULTED CHEMISTRY (07/26/2025 12:31 PM EDT) Only the most recent of6 resultswithin the time period is included. Sodium - External 142 135 - 145 mmol/L Comment:Done [facility] Potassium - External 3.7 3.3 - 5.1 mmol/L Comment:Done [facility] Chloride - External 106 96 - 108 mmol/L Comment:Done [facility] CO2 - External 27 22 - 29 mmol/L Comment:Done [facility] BUN - External 11 9 - 16 mg/dL Comment:Done [facility] Creatinine, serum - External 0.85 0.5 - 1.4 mg/dL Comment:Done [facility] BUN/Creatinine - External eGFR - External Glucose - External 113 60 - 115 mg/dL Comment:Done [facility] Calcium - External 9.8 8.4 - 10.2 mg/dL Comment:Done [facility] Phosphorus - External Magnesium - External Albumin - External 4.0 3.5 - 5.0 g/dL Comment:Done [facility] Bilirubin, total - External 7.2(A) 0.0 - 1.0 mg/dL Comment:Done [facility] Bilirubin, direct - External Bilirubin (conjugated) - External Bilirubin, indirect - External Protein - External 8.6(A) 6.5 - 8.0 g/dL Comment:Done [facility] Alkaline Phosphatase - External 306(A) 39 - 117 U/L Comment:Done [facility] AST - External 143(A) 5 - 37 U/L Comment:Done [facility] ALT - External 148(A) 0 - 40 U/L Comment:Done [facility] Amylase - External Lipase (u/L) [...] Isoenzymes - External Cystatin C - External 07/26/2025 12:3 1 PM EDT us Historical Provider LAB BLOOD ORDERABLES Mili l Result * (ABNORMAL) PT-INR (07/26/2025 12:31 PM EDT) Only the most recent of4 resultswithin the time period is included. PT - External 13.1(A) 10.9 - 12.4 Sec Comment:Done [facility] INR - External 1.1 0.9 - 1.1 Comment:Done [facility] Blood (Blood) 07/26/2025 12: 31 PM EDT us Historical Provider MD LAB BLOOD BKR ORDERABLES Final Result * Phosphatidylethanol (05/30/2025 10:36 AM EDT) PEth 16:0/18:1 (POPEth) by LC-MS/MS <10 Cutoff: 10 ng/mL [facility] MED/PATH [facility] Comment: (NOTE) Phosphatidylethanol (PEth) [...] (PLPEth) by LC-MS/MS <10 Cutoff: 10 ng/mL [facility] MED/PATH [facility] Comment: (NOTE) PEth 16:0/18:2 (PLPEth) Reference ranges are not well established PEth Interpretation Negative. [facility] MED/PATH [facility] Comment: (NOTE) ADDITIONAL INFORMATION This report is intended for use in clinical monitoring and management of patients. It is not intended for use in employment-related testing. This test was developed and its performance characteristics determined by [facility] in a manner consistent with CLIA requirements. This test has not been cleared or approved by the U.S. Food and Drug Administration. Blood 05/30/2025 10:3 6 AM EDT 05/30/2025 12:53 PM EDT us Jodirafia Shier PA-C LAB BLOOD BKR ORDERA BLES Final Result [facility]PATH [address] [place] [address] * Hepatitis A antibody, IgG (05/30/2025 10:36 AM EDT) HAV IGG AB Positive [facility] Comment: (NOTE) REFERENCE RANGE: Unvaccinated: Negative Vaccinated: Positive A positive result indicates the presence of HAV-specific IgG antibody from either vaccination or prior exposure to hepatitis A virus Blood 05/30/2025 10:3 6 AM EDT 05/30/2025 12:49 PM EDT Jodi Gabe Donnelly PA-C LAB BLOOD ORDERABLES Final Result Performing Organization Address City/[facility]/ZIP Co de Phone Number [address] [address] * Ethanol, blood (05/30/2025 10:36 AM EDT) ETHANOL Negative Negative mg/dL [facility] Blood 05/30/2025 10:3 6 AM EDT 05/30/2025 12:53 PM EDT Jodi Gabe Scheyarieler PA-C LAB BLOOD BKR ORDERA BLES Final Result Performing Organization Address City/[facility]/ZIP Co de Phone Number [address] [address] * Retinol binding protein (05/30/2025 10:36 AM EDT) RETINOL BIND PROTEIN 4.2 1.5 - 6.7 mg/dL [facility] Comment: (NOTE) Test Performed by: [employer] [place] [address] [place] [address] Blood 05/30/2025 10:3 6 AM EDT 05/30/2025 12:49 PM EDT us Deborah Cowan [facility] LAB BLOOD ORDERAB LES Final Result [facility] * (ABNORMAL) Cystatin C (05/30/2025 10:36 AM EDT) Cystatin C 1.38(H) 0.61 - 0.95 mg/L [facility] eGFR (Cystatin C) 53(L) >59 mL/min/1. 73m2 [facility] Comment: Cystatin C-based eGFR may differ substantially from creatinine-based eGFR in patients with abnormal muscle mass or acutely changing renal function. Please interpret together with relevant clinical features. Blood 05/30/2025 10:3 6 AM EDT 05/30/2025 12:53 PM EDT us Jodi Gabe Shier PA-C LAB BLOOD BKR ORDERA BLES Final Result Performing Organization Address [facility] Co de Phone Number [address] [address] * Mumps antibody, IgG (05/30/2025 10:36 AM EDT) MUMPS VIRUS AB IGG 76.90 AU/mL [employer]-[address] [place] [address] Comment: (NOTE) AU/mL Interpretation ------- <9.00 Not consistent with immunity 9.00-10.99 Equivocal >10.99 Consistent with immunity The presence of mumps IgG antibody suggests immunization or past or current infection with mumps virus. Blood (Blood) 05/30/2025 10: 36 AM EDT 05/30/2025 12:46 PM EDT us Jodi Gabe Scherrer PA-C LAB BLOOD BKR ORDERA BLES Final Result Performing Organization Address City/[facility]/ZIP Co de Phone Number [employer]-[address],[place] [address] * (ABNORMAL) Porsha-Perea virus (EBV) antibody, IgG (05/30/2025 10:36 AM EDT) EBV VCA, IgG 442.00(H) U/mL [employer] Comment: (NOTE) U/mL Interpretation ---- <18.00 Negative 18.00-21.99 Equivocal >21.99 Positive Blood (Blood) 05/30/2025 10: 36 AM EDT 05/30/2025 12:46 PM EDT Jodi Donnelly PA-C NON CULTURE MICROBIO LOGY Final Result Performing Organization Address [facility] Co de Phone Number [employer] [address] * Zinc (05/30/2025 10:36 AM EDT) Pathologist [facility] Zinc, S 66 60 - 106 mcg/dL [facility] Comment: (NOTE) ADDITIONAL INFORMATION This test was developed and its performance characteristics determined by [facility] in a manner consistent with CLIA requirements. This test has not been cleared or approved by the U.S. Food and Drug Administration. Blood 05/30/2025 10:3 6 AM EDT 05/30/2025 12:49 PM EDT us Deborah Cowan [facility] LAB BLOOD ORDERAB LES Final Result [facility]/PATH [address] [place] [address] * Rubella antibody, IgG ([facility] ,[facility] ,[facility] ,[facility] ,[facility] ,[facility] ,[facility] ,[facility]) (05/30/2025 10:36 AM EDT) Pathologist [facility] RUBELLA AB, IGG 3.66 Index [facility] [address] Comment: (NOTE) Index Interpretation ----- <0.90 Not consistent with immunity 0.90-0.99 Equivocal > or = 1.00 Consistent with immunity The presence of rubella IgG antibody suggests immunization or past or current infection with rubella virus. Blood (Blood) 05/30/2025 10: 36 AM EDT 05/30/2025 12:53 PM EDT Jodi Gabe Donnelly PA-C LAB BLOOD BKR ORDERA BLES Final Result Performing Organization Address [facility] Co de Phone Number [employer] [address] [address] * Varicella-zoster (VZV) antibody, IgG (05/30/2025 10:36 AM EDT) Varicella Ab, IgG 27.20 S/[facility] [employer] [address] Comment: (NOTE) Signal to Cut-off S/CO [...] us Jodi Gabe Scherrer PA-C LAB BLOOD BKR ORDERA BLES Final Result Performing Organization Address [facility] Co de Phone Number [employer] [address] [address] * Copper, blood (05/30/2025 10:36 AM EDT) Copper, serum 117 73 - 129 mcg/dL [facility] MED/PATH [facility] Comment: (NOTE) ADDITIONAL INFORMATION This test was developed and its performance characteristics determined by [facility] in a manner consistent with CLIA requirements. This test has not been cleared or approved by the U.S. Food and Drug Administration. Blood (Blood) 05/30/2025 10: 36 AM EDT 05/30/2025 12:46 PM EDT Deborah Cowan [facility] LAB BLOOD BKR ORD ERABLES Final Result Performing Organization Address City/[facility]/ZIP Co de Phone Number [facility] LAB MED/PATH [address] [place] [address] * (ABNORMAL) Cytomegalovirus (CMV) antibody, IgG (05/30/2025 10:36 AM EDT) Cytomegalovirus Ab, IgG >10.00(H) U/mL [employer] [facility]-[address] [place] [address] Comment: (NOTE) U/mL Interpretation ----- <0.60 Negative 0.60-0.69 Equivocal > or = 0.70 Positive A positive result indicates that the patient has antibody to CMV. It does not differentiate between an active or past infection. Blood (Blood) 05/30/2025 10: 36 AM EDT 05/30/2025 12:46 PM EDT Jodi Donnelly PA-C LAB BLOOD BKR ORDERA BLES Final Result Performing Organization Address City/[facility]/ZIP Co de Phone Number [employer] [facility] [address] * (ABNORMAL) Comprehensive metabolic panel (05/30/2025 10:36 AM EDT) SODIUM 137 135 - 145 mmol/L [facility] POTASSIUM 3.7 3.4 - 5.0 mmol/L [facility] CHLORIDE 103 98 - 108 mmol/L [facility] CO2 21(L) 23 - 32 mmol/L [facility] BUN 9 8 - 25 mg/dL [facility] CREATININE 0.89 0.60 - 1.30 mg/dL [facility] Comment:Icteric GLUCOSE 76 70 - 110 mg/dL [facility] ALBUMIN 3.5 3.3 - 5.0 g/dL [facility] TOTAL PROTEIN 8.1 6.0 - 8.3 g/dL [facility] CALCIUM 9.5 8.5 - 10.5 mg/dL [facility] ALKALINE PHOSPHATASE 321(H) 45 - 115 U/L [facility] TOTAL BILIRUBIN 8.0(H) 0.0 - 1.0 mg/dL [facility] AST 89(H) 10 - 40 U/L [facility] ALT 80(H) 10 - 55 U/L [facility] GLOBULIN 4.6(H) 1.9 - 4.1 g/dL [facility] EGFR 106 >59 mL/min/1. 73m2 [facility] Comment:Estimated glomerular filtration rate calculated using the CKD-EPI refit equation. ANION GAP 13 3 - 17 mmol/L [facility] Blood 05/30/2025 10:3 6 AM EDT 05/30/2025 12:53 PM EDT us Jodi Donnelly PA-C LAB BLOOD BKR ORDERA BLES Final Result [facility] [address] [place] [address] * Niacin (05/30/2025 10:36 AM EDT) Nicotinic [...] its performance characteristics determined by [facility] in a manner consistent with CLIA requirements. This test has not been cleared or approved by the U.S. Food and Drug Administration. Blood 05/30/2025 10:3 6 AM EDT 05/30/2025 12:49 PM EDT Deborah Cowan [facility] LAB BLOOD BKR ORD ERABLES Final Result Performing Organization Address City/[facility] Co de Phone Number [facility] LAB MED/PATH [address] [place] [address] * Measles antibody, IgG (05/30/2025 10:36 AM EDT) Measles Ab titer, IgG >300.00 AU/mL [employer]-[address] [place] [address] Comment: (NOTE) AU/mL Interpretation ----- <13.50 Not consistent with immunity 13.50-16.49 Equivocal >16.49 Consistent with immunity The presence of measles IgG suggests immunization or past or current infection with measles virus. For additional information, please refer to http://education.[employer].Vastari/faq/AJD362 (This link is being provided for informational/ educational purposes only.) Blood (Blood) 05/30/2025 10: 36 AM EDT 05/30/2025 12:46 PM EDT Jodi Donnelly PA-C LAB BLOOD BKR ORDERA BLES Final Result Performing Organization Address [facility] Co de Phone Number [employer] [address] [address], [facility] * T spot TB test (05/30/2025 10:36 AM EDT) [facility] T-SPOT.TB Negative Negative [facility] Comment: (NOTE) A negative test result does [...] Spot Count Corrected For Neg Control 2 [facility] Panel B Spot Count Corrected For Neg Control 3 [facility] Negative Control Passed QUE [facility] Positive Control Passed [facility] Comment: (NOTE) For additional information, please refer to http://education.PayRange/faq/LZQ558 (This link is being provided for informational/ educational purposes only.) Blood 05/30/2025 10:3 6 AM EDT 05/30/2025 12:49 PM EDT Jodi Donnelly PA-C LAB BLOOD ORDERABLES Final Result [facility] [id number] [place], [place] * HIV-1/2 antigen/antibody (05/30/2025 10:36 AM EDT) [facility] HIV 1/2 AB/AG Non-Reac tive Non-Reac tive [facility] Comment: A Non-Reactive result does not rule [...] EDT Jodi Gabe Donnelly PA-C LAB BLOOD BKR ORDERA BLES Final Result Performing Organization Address City/[facility]/ZIP Co de Phone Number [address] [address] * Hepatitis C antibody, qualitative (05/30/2025 10:36 AM EDT) HCV ANTIBODY Negative Negative [facility] Comment:Antibodies to HCV no t detected. Does not exclude the possibility of exposure to HCV. Blood 05/30/2025 10:3 6 AM EDT 05/30/2025 12:49 PM EDT Jodi Gabe Scherrer PA-C LAB BLOOD BKR ORDERA BLES Final Result Performing Organization Address [facility] Co de Phone Number [address] [address] * Methylmalonic acid, serum (05/30/2025 10:36 AM EDT) METHYLMALONIC ACID 0.16 <=0.40 nmol/mL [facility] DPT OF LAB MED AND PAT+ Comment: (NOTE) ADDITIONAL INFORMATION This test was developed and its performance characteristics determined by [facility] in a manner consistent with CLIA requirements. This test has not been cleared or approved by the U.S. Food and Drug Administration. Blood 05/30/2025 10:3 6 AM EDT 05/30/2025 12:49 PM EDT Deborah Patricioahan [facility] LAB BLOOD ORDERAB LES Final Result [facility] DPT OF LAB MED AND PAT+ [address] [place] [address] * Iron and iron binding capacity (05/30/2025 10:36 AM EDT) IRON 101 45 - 160 ug/dL [facility] IRON BINDING CAPACITY 301 230 - 404 ug/dL [facility] TRANSFERRIN SATURAT. 34 14 - 50 % [facility] Blood 05/30/2025 10:3 6 AM EDT 05/30/2025 12:53 PM EDT Jodi Donnelly PA-C LAB BLOOD BKR ORDERA BLES Final Result Performing Organization Address City/[facility]/ZIP Co de Phone Number [address] [address] * Ceruloplasmin (05/30/2025 10:36 AM EDT) CERULOPLASMIN 32 20 - 60 mg/dL [facility] Blood 05/30/2025 10:3 6 AM EDT 05/30/2025 12:49 PM EDT Deborah Cowan [facility] LAB BLOOD ORDERAB LES Final Result Performing Organization Address City/[facility]/ZIP Co de Phone Number [address] [address] * (ABNORMAL) Toxicology screen, urine (05/30/2025 10:36 AM EDT) URINE AMPHETAMINES Negative Negative [facility] URINE BENZODIAZEPINE Positive(A) Negative [facility] URINE COCAINE METAB Negative Negative [facility] URINE OPIATES Negative Negative [facility] Comment:This assay is not se nsitive for detection of oxycodone and oxymorphone. URINE OXYCODONE Negative Negative [facility] Fentanyl, urine Negative Negative [facility] URINE CREATININE 207 mg/dL [facility] Urine (Urine) 05/30/2025 10: 36 AM EDT 05/30/2025 5:17 PM EDT Jodi Donnelly PA-C LAB URINE ORDERABLES Final Result Performing Organization Address City/[facility]/ZIP Co de Phone Number [facility] [address] [place] [address] * Vitamin A (05/30/2025 10:36 AM EDT) VITAMIN A 42.4 32.5 - 78.0 mcg/dL [facility] Comment: (NOTE) ADDITIONAL INFORMATION This test was developed and its performance characteristics determined by [facility] in a manner consistent with CLIA requirements. This test has not been cleared or approved by the U.S. Food and Drug Administration. Blood 05/30/2025 10:3 6 AM EDT 05/30/2025 12:49 PM EDT Deborah Cowan [facility] LAB BLOOD ORDERAB LES Final Result Performing Organization Address [facility] Co de Phone Number [facility] LAB MED/PATH SU[facility] [address] [place] [address] * (ABNORMAL) Selenium (05/30/2025 10:36 AM EDT) SELENIUM, SERUM 100(L) 110 - 165 mcg/L [facility] Comment: (NOTE) ADDITIONAL INFORMATION This test was developed and its performance characteristics determined by [facility] in a manner consistent with CLIA requirements. This test has not been cleared or approved by the U.S. Food and Drug Administration. Blood 05/30/2025 10:3 6 AM EDT 05/30/2025 12:49 PM EDT Deborah Cowan [facility] LAB BLOOD ORDERAB LES Final Result [facility] LAB MED/PATH [address] [place] [address] * AFP (non-maternal specimens) (05/30/2025 10:36 AM EDT) AFP (NON-MATERNAL) 5.9 <7.9 ng/mL [facility] Comment: Note: Reference interval does not apply to newborns where very high levels are expected. Range for newborns is not available. This assay is performed on the [employer] Catrachito 8000. Values obtained with different assay [...] 12:53 PM EDT Jodi LANG-C LAB BLOOD BKR ORDERA BLES Final Result Performing Organization Address [facility] Co de Phone Number [address] [address] * Hepatitis B core antibody, total (05/30/2025 10:36 AM EDT) Pathologist [facility] HEP B CORE AB, TOT Negative Negative [facility] Comment:A nonreactive final interpretation indicates that anti-HBc antibodies were not detected in the sample. It is possible that the individual is not infected with HBV. Blood 05/30/2025 10:3 6 AM EDT 05/30/2025 12:49 PM EDT [facility] Scheyarieler PA-C LAB BLOOD BKR ORDERA BLES Final Result Performing Organization Address City/[facility]/ZIP Co de Phone Number [address] [address] * Syphilis antibody screen (05/30/2025 10:36 AM EDT) [facility] Syphilis Antibody Screen Non-React jeff Non-React jeff [facility] Comment: INTERPRETATION: Negative for syphilis antibodies. NOTE: This specimen was screened for syphilis using a specific immunoassay for the detection of IgG and IgM Treponema pallidum antibodies. This test has replaced the Non-Treponemal RPR as the initial screening antibody test for syphilis at [facility], because it is more sensitive and specific. Blood 05/30/2025 10:3 6 AM EDT 05/30/2025 12:49 PM EDT Jodi Donnelly PA-C LAB BLOOD BKR ORDERA BLES Final Result Performing Organization Address [facility]/ZIP Co de Phone Number [address] [address] * Vitamin C (05/30/2025 10:36 AM EDT) [facility] VITAMIN C 1.1 0.4 - 2.0 mg/dL [facility] Comment: (NOTE) ADDITIONAL INFORMATION This test was developed and its performance characteristics determined by [facility] in a manner consistent with CLIA requirements. This test has not been cleared or approved by the U.S. Food and Drug Administration. Blood 05/30/2025 10:3 6 AM EDT 05/30/2025 12:39 PM EDT us Deborah Cowan RETAIL LEADER LAB BLOOD ORDERAB LES Final Result Performing Organization Address City/[facility]/ZIP Co de Phone Number [facility] LAB MED/PATH [facility] [address] [place] [address] * 25-OH vitamin D (05/30/2025 10:36 AM EDT) [facility] 25 [place] VIT D (TOTAL) 38 20 - 80 ng/mL [facility] Blood 05/30/2025 10:3 6 AM EDT 05/30/2025 12:49 PM EDT Deborah Cowan [facility] LAB BLOOD BKR ORD ERABLES Final Result [address] [address] * Hepatitis B surface antibody (05/30/2025 10:36 AM EDT) HBV SURFACE AB,QUANT <3.31 mIU/mL [facility] Comment:Results less than 12 .00 mIU/mL are not consistent with protective immunity. Results of 12.00 mIU/mL or more indicate protective immunity. HBV SURFACE AB,QUAL Negative [facility] Comment:Patient is considere d not immune to HBV infection. Blood 05/30/2025 10:3 6 AM EDT 05/30/2025 12:49 PM EDT Jodi LANG-C LAB BLOOD BKR ORDERA BLES Final Result [address] [address] * Hepatitis B surface antigen (05/30/2025 10:36 AM EDT) HBV SURFACE ANTIGEN Negative Negative [facility] Blood 05/30/2025 10:3 6 AM EDT 05/30/2025 12:49 PM EDT Jodi Gabe Scherrer PA-C LAB BLOOD BKR ORDERA BLES Final Result [address] [address] * (ABNORMAL) CBC and differential (05/30/2025 10:36 AM EDT) WBC 8.63 4.00 - 11.00 K/uL [facility] RBC 3.76(L) 4.50 - 5.90 M/uL [facility] HGB 12.3(L) 13.5 - 17.5 g/dL [facility] HCT 38.1(L) 41.0 - 53.0 % [facility] PLT 187 150 - 450 K/uL [facility] MCV 101.3(H) 80.0 - 100.0 fL [facility] MCH 32.7(H) 27.0 - 31.0 pg [facility] MCHC 32.3 32.0 - 36.0 g/dL [facility] RDW 14.1 11.5 - 14.5 % [facility] MPV 12.4(H) 8.4 - 12.0 fL [facility] NRBC 0.00 0.00 /100 WBCs [facility] ABSOLUTE NRBC 0.00 0.00 K/uL [facility] DI[facility] METHOD Auto [facility] NEUTS 61.8 48.0 - 76.0 % [facility] LYMPHS 23.2 18.0 - 41.0 % [facility] MONOS 6.3 4.0 - 11.0 % [facility] EOS 7.3(H) 0.0 - 5.0 % [facility] BASOS 0.9 0.0 - 1.5 % [facility] % IMMATURE GRANS 0.5 0.0 - 0.9 % [facility] ABSOLUTE NEUTS 5.34 1.92 - 7.60 K/uL [facility] ABSOLUTE LYMPHS 2.00 0.72 - 4.10 K/uL [facility] ABSOLUTE MONOS 0.54 0.16 - 1.10 K/uL [facility] ABSOLUTE EOS 0.63(H) 0.00 - 0.50 K/uL [facility] ABSOLUTE BASOS 0.08 0.00 - 0.15 K/uL [facility] ABS IMMATURE GRANS 0.04 0.00 - 0.09 K/uL [facility] Blood 05/30/2025 10:3 6 AM EDT 05/30/2025 12:53 PM EDT us Jodi Donnelly PA-C LAB BLOOD BKR ORDERA BLES Final Result [facility] [address] [place] [address] * Type and Screen (ABO,Rh,Antibody Screen) (05/30/2025 10:36 AM EDT) Expiration Date of Sample 06/02/2025 11:59 PM [facility] ABO O 05/30/2025 2:17 PM EDT [facility] Rh Positive 05/30/2025 2:17 PM EDT [facility] Comment:Additional Specimen for ABORH Needed for RBC Xmtch Resulting Agency [facility] Antibody Screen Negative 05/30/2025 2:22 PM EDT [facility] Blood 05/30/2025 10:3 6 AM EDT 05/30/2025 1:20 PM EDT Jodi Donnelly PA-C LAB BLOOD BANK TEST ORDERABLES Final Result Performing Organization Address City/[facility]/ZIP Co de Phone Number [address] [address] * C-Reactive Protein (05/30/2025 10:36 AM EDT) [facility] C REACTIVE PROTEIN 7.7 <8.0 mg/L [facility] Comment:This reference range is for the evaluation of inflammation. Order High Sensitivity CRP for cardiac risk status evaluation. Blood 05/30/2025 10:3 6 AM EDT 05/30/2025 12:53 PM EDT Deborah Cowan [facility] LAB BLOOD BKR ORD ERABLES Final Result Performing Organization Address City/[facility]/ZIP Co de Phone Number [address] [address] * Vitamin E (05/30/2025 10:36 AM EDT) VIT E, A-TOCOPHEROL 10.7 5.5 - 17.0 mg/L [facility] Comment: (NOTE) ADDITIONAL INFORMATION This test was developed and its performance characteristics determined by [facility] in a manner consistent with CLIA requirements. This test has not been cleared or approved by the U.S. Food and Drug Administration. Blood 05/30/2025 10:3 6 AM EDT 05/30/2025 12:49 PM EDT Deborah Boyce [facility] LAB BLOOD ORDERAB LES Final Result Performing Organization Address [facility] de Phone Number [facility] LAB MED/PATH [facility] [address] [place] [address] * Vitamin B1 (thiamine) (05/30/2025 10:36 AM EDT) Pathologist [facility] VITAMIN B1 134 70 - 180 nmol/L [facility] LAB MED/PATH [facility] Comment: (NOTE) ADDITIONAL INFORMATION This test was developed and its performance characteristics determined by [facility] in a manner consistent with CLIA requirements. This test has not been cleared or approved by the U.S. Food and Drug Administration. Blood 05/30/2025 10:3 6 AM EDT 05/30/2025 12:47 PM EDT Deborah Boyce [facility] LAB BLOOD ORDERAB LES Final Result Performing Organization Address [facility] de Phone Number [facility] LAB MED/PATH [facility]PER[facility] [address] [place] [address] * (ABNORMAL) Vitamin B6 (05/30/2025 10:36 AM EDT) Pathologist [facility] VITAMIN B6 2(L) 5 - 50 mcg/L [facility] LAB MED/PATH [facility] Comment: (NOTE) ADDITIONAL INFORMATION This test was developed and its performance characteristics determined by [facility] in a manner consistent with CLIA requirements. This test has not been cleared or approved by the U.S. Food and Drug Administration. Blood 05/30/2025 10:3 6 AM EDT 05/30/2025 12:53 PM EDT us Deborah Cowan [facility] LAB BLOOD ORDERAB LES Final Result [facility] LAB MED/PATH [address] [place] [address] * Homocysteine (05/30/2025 10:36 AM EDT) HOMOCYSTEINE, TOTAL 7.5 0 - 14.2 umol/L [facility] Blood 05/30/2025 10:3 6 AM EDT 05/30/2025 12:39 PM EDT us Deborah Patricioahan [facility] LAB BLOOD BKR ORD ERABLES Final Result Performing Organization Address City/[facility]/ZIP Co de Phone Number [address] [address] * Folate (05/30/2025 10:36 AM EDT) FOLIC ACID >20.0 >4.7 ng/mL [facility] Blood 05/30/2025 10:3 6 AM EDT 05/30/2025 12:46 PM EDT us Deborahdaylin Gillilandth [facility] LAB BLOOD BKR ORD ERABLES Final Result Performing Organization Address City/[facility]/ZIP Co de Phone Number [address] [address] * (ABNORMAL) Ferritin (05/30/2025 10:36 AM EDT) FERRITIN 718(H) 20 - 300 ug/L [facility] Blood 05/30/2025 10:3 6 AM EDT 05/30/2025 12:53 PM EDT us Jodi Donnelly PA-C LAB BLOOD BKR ORDERA BLES Final Result [address] [address] * Vitamin B12 (05/30/2025 10:36 AM EDT) VITAMIN B12 >2000 >231 pg/mL [facility] Blood 05/30/2025 10:3 6 AM EDT 05/30/2025 12:53 PM EDT Deborah Carli Cowan [facility] LAB BLOOD BKR ORD ERABLES Final Result Performing Organization Address [facility] Co de Phone Number [address] [address] * (ABNORMAL) Lipid panel (05/30/2025 10:36 AM EDT) Pathologist [facility] HDL 31(L) 35 - 100 mg/dL [facility] CHOLESTEROL 231(H) <200 mg/dL [facility] TRIGLYCERIDES 186(H) 40 - 150 mg/dL [facility] LDL 163(H) 50 - 129 mg/dL [facility] CARDIAC RISK RATIO 7.5(H) 0.0 - 5.0 [facility] NON-HDL CHOLESTEROL 200 mg/dL [facility] Comment:Guidelines suggest a non-HDL cholesterol goal 30 mg/dL higher than the patient-specific LDL goal. Blood 05/30/2025 10:3 6 AM EDT 05/30/2025 12:53 PM EDT Jodi Donnelly PA-C LAB BLOOD BKR ORDERA BLES Final Result Performing Organization Address [facility] Co de Phone Number [address] [address] * Biliary tract malignancy (05/15/2025 5:26 PM EDT) Only the most recent of3 resultswithin the time period is included. Pathology Pancreatobiliary FISH SEE BELOW [facility] Comment: (NOTE) Pancreatobiliary FISH Report Pancreatobiliary [...] carcinoma should be pursued, as clinically indicated. [employer] Bladder Cancer Kit probes were used to detect aneuploidy for chromosomes 3, 7, and 17 via fluorescence in situ hybridization (FISH). Results from this test are intended for use in conjunction with, and not in lieu of, current standard diagnostic procedures as an aid for initial diagnosis of pancreatobiliary carcinoma or related sources. This test was developed and its performance characteristics determined by [employer]. It has not been cleared or approved by the US Food and Drug Administration. This test was performed in a CLIA certified laboratory and is intended for clinical purposes. 05/24/25 Reviewed by: Jonny Hurst 05/25/25 Verified By: Rachana Nicole M.D. electronic signature I certify that I personally conducted the evaluation on the above specimen(s) and have rendered the above interpretation(s). [facility], Department of Pathology [facility] [place] [address], [place] [address] [facility] [address] Pancreatobiliary FISH Comments This test has been scanned by the BioView automated slide screener and reviewed by the pathologist (CPT 77666). Controls performed as expected. TC:102 ISCN: nuc lynette(CEP3,CEP7,9p21,CEP17)x2 Pancreatobiliary FISH Clinical History Clinical Information: No clinical information provided. Performed By: [employer] [facility] [address] [place] [address] [employer] Consultant: Sebastian Kaba MD, PhD CLIA Number: [id number] Pancreatobiliary FISH Specimen Source Hepatic Duct Brushing, Left [facility] 05/15/2025 5:26 PM EDT 05/15/2025 5:26 PM EDT Geovani Sun MD LAB BLOOD ORDERABLES Final Res ult Performing Organization Address [facility] [place] [address] [employer] [address] [place] [address] * Chemistry Comment (05/15/2025 5:26 PM EDT) Only the most recent of3 resultswithin the time period is included. Comments (Chemistry) L. HEPATIC DUCT BRUSH [facility] 05/15/2025 5:26 PM EDT 05/15/2025 5:26 PM EDT Geovani Sun MD LAB BLOOD ORDERABLES Final Res ult Performing Organization Address City/[facility] Co de Phone Number [address] [address] * Non-International Travel Consultant Cytology (05/15/2025 2:40 PM EDT) [place] [address] Non International Travel Consultant Cytology Report Patient Name: GIOVANNA NDIAYE : 1975 (Age: 49) Sex: M Institution[place] [facility] Date of Collection: 05/15/2025 Date of [...] Histiocytes. Electronically Signed Out By: Erlinda Rodriguez [facility] By his/her signature above, the pathologist listed [...] HEPATIC: Received ThinPrep vial with brush labeled PRASAD NDIAYERGE, . One ThinPrep slide made. One ThinPrep vial to [facility] for NGS. One ThinPrep vial with brush to [facility] for FISH. C. BILIARY BRUSH, LEFT HEPATIC DUCT: Received ThinPrep vial with brush labeled GIOVANNA NDIAYE, . One ThinPrep slide made. One ThinPrep vial to [facility] for NGS. One ThinPrep vial with brush to [facility] for FISH. [facility] Clinical History PSC [facility] Final Diagnosis Summary [facility] Final Diagnosis A. BILIARY BRUSH, RIGHT POSTERIOR [...] CELLS IDENTIFIED. DIAGNOSIS: Reactive ductal cells. Histiocytes. [facility] Gross Description A. BILIARY BRUSH, RIGHT POSTERIOR HEPATIC: Received ThinPrep vial with brush labeled GIOVANNA NDIAYE, . One ThinPrep slide made. One ThinPrep vial to [facility] for NGS. One ThinPrep vial with brush to [facility] for FISH. B. BILIARY BRUSH, RIGHT ANTERIOR HEPATIC: Received ThinPrep vial with brush labeled GIOVANNA NDIAYE, . One ThinPrep slide made. One ThinPrep vial to [facility] for NGS. One ThinPrep vial with brush to [facility] for FISH. C. BILIARY BRUSH, LEFT HEPATIC DUCT: Received ThinPrep vial with brush labeled GIOVANNA NDIAYE, . One ThinPrep slide made. One ThinPrep vial to [facility] for NGS. One ThinPrep vial with brush to [facility] for FISH. [facility] Conversion Type (Conversion Source) 05/15/2025 2:40 PM EDT 05/15/2025 2:40 PM EDT Conversion Type (Conversion Source) 05/15/2025 2:40 PM EDT 05/15/2025 2:40 PM EDT Conversion Type (Conversion Source) 05/15/2025 2:40 PM EDT 05/15/2025 2:40 PM EDT Geovani Sun MD CYTOLOGY ORDERABLES Edited Res ult - Final [facility] [address] [place] [address] * [place] ENDOSCOPIC RETROGRADE BILIARY ONLY (05/15/2025 11:18 AM EDT) Anatomical Region Laterality Modality Abdomen Radio Fluoroscop y 05/15/2025 1:55 PM EDT Narrative 05/15/2025 1:55 PM EDT Dose (mGy): 205533 Dose Area Product (DAP): 7476.9 Dose Area Product (DAP) Units: uGy.m2 Fluoro time (min): 12.1 Radimetrics Dose Report: CTDIvol: 0 mGy. DLP: 0 mGy-cm. Procedure Note Supervisor Pig Machine, Dictation - 05/15/2025 Dose (mGy): 191397 Dose Area Product (DAP): 7476.9 Dose Area [...] not difficult to intubate. Procedure performed by: fellow/resident/CIGARETTE MACHINES MECHANIC Anesthesiologist: Felix Major MD, PhD Fellow/Resident/CIGARETTE MACHINES MECHANIC: Carley Oropeza CRNA Airway procedure initiated at:05/15/2025 [...] observed? no us Felix Major MD, PhD PA ANESTHESIA Final Res ult * ENDOSCOPY PROCEDURE (05/15/2025 9:07 AM EDT) 05/15/2025 9:07 AM EDT Narrative Transcriptions Geovani Sun MD - 05/15/2025 9:07 AM EDT Gastrointestinal Endoscopy Unit Patient Name: Giovanna Ndiaye Exam Date: 05/15/2025 9:07 AM Date of : 1975 Admit Type: Outpatient Age: 49 Room: [place] [address] Gender: Male Note Status: Finalized Attending MD: [...] patient tolerated the procedure well. Findings: The manager payer film was normal. The scope was advanced [...] performed the entire procedure. Geovani Sun MD, [id number] 05/15/2025 11:33:40 AM The attending physician was present throughout the entire procedure. Number of Addenda: 0 Note Initiated On: 05/15/2025 9:07 AM Peyman Dunn MD GI PROCEDURE ORDERABLES Final Result * Molecular Diagnostics (05/15/2025 12:00 AM EDT) Only the most recent of3 resultswithin the [place] [address] Program Developer: Steven Dent MD CLIA ID # [id number] Molecular Pathology Report Solid SNAPSHOT Assay Patient Name: GIOVANNA NDIAYE : 1975 (Age: 49) Sex: M [facility] [facility] Location: [facility] Date of Collection: 05/15/2025 Date of Reported: 05/27/2025 21:56 Results To: Geovani Sun MD CLINICAL HISTORY: Gastrointestinal Tract (Biliary Tract) Left Hepatic Duct Brushing SPECIMENS RECEIVED: A: Molecular test for Solid SNAPSHOT Assay GROSS DESCRIPTION: Biliary [place] SLIDE-BLOCK DESCRIPTION: [id number], Part C TEST - [id number] Assay INDICATION FOR TEST: Gastrointestinal Tract (Biliary Tract) Left Hepatic Duct Brushing SPECIMEN(S) TESTED: Biliary [place] ([facility], [place], [place], [place]) RESULTS: Targeted DNA next generation sequencing (NGS) using Anchored Multiplex PCR (AMP) detected no reportable variants. Copy Number Variants: Not validated for biliary brush specimens. Tumor Mutation Harrod: Not validated for biliary brush specimens. INTERPRETATION: [...] number detection in genomic DNA using the [employer] platform and Illumina NextSeq next generation sequencing (NGS). Briefly, a board-certified molecular pathologist performed microscopic review of routine H&E-stained sections using validated digital pathology or traditional microscopic workflows. The appropriate region(s) of interest were identified and circled, followed by tumor enrichment via macrodissection prior to nucleic acid extraction. The [employer]Equity VariantVaughn Burton Rowe Solid Tumor v2 protocol was used to target the coding sequence of genes listed below. Illumina NextSeq 2 x 150 base paired-end sequencing reads were demutiplexed to generate FASTQ files that were transferred to the [employer] Analysis pipeline for read alignment to the [...] FOXL2, FUBP1, GNA11, GNAQ, GNAS, H3F3A, H3F3B, SJZZ6G9M, HTRA4I8N, HNF1A, HRAS, IDH1, IDH2, JAK1, JAK2, JAK3, KDM6A, KDR, KEAP1, KIT, KLF4, KMT2C, KMT2D (MLL2), KRAS, LZTR1, MAP2K1 (MEK1), MAP2K2 (MEK2), MAP3K1, MDM2, MDM4, MED12, MEN1, MET, MLH1, MPL, MRE11A, MSH2, MSH3, MSH6, MTOR, MUC16, MUTYH, MYC, MYCN, NBN, NF1, NF2, NKX2-1, NOTCH1, NOTCH2, NOTCH3, NOTCH4, NPM1, NRAS, NTRK1, NTRK2, NTRK3, PALB2, PBRM1, PDGFRA, PIK3CA, PIK3CB, PIK3R1, PLCB4, PMS2, POLD1, POLE, EED3Q1P, GRW8F7A, PRKD1, PTCH1, PTEN, PTPN11, RAD50, RAD51, RAD51B, RAD51C, RAD51D, RAD54L, RAF1, RB1, RET, RHOA, RICTOR, RNF43, ROS1, SDHA, SDHB, SDHC, SDHD, SETD2, SF3B1, SMAD2, SMAD4, SMARCA4, SMARCB1, SMO, SRC, SRSF2, STAG2, STK11, SUFU, TERT, TGFBR2, TP53, TP63, TRAF7, TSC1, TSC2, TSHR, U2AF1, VHL, XRCC2, XRCC3. [employer] ANALYSIS PIPELINE VERSION: 7.4.2 [employer] ANALYSIS WEB APPLICATION VERSION: 7.4.4 MATCHED ANNOTATION FROM NCBI AND EMBL-BIANCA (MARTHA) VERSION: 1.0 REFERENCES: Gopi et al. [place] Med 2014;20(12):1479-8 4. [PMID: [id number]] This test was developed, and its performance characteristics were determined by the [facility]. It has not [...] performed at the [facility], [facility], [address] [place] [address]. Electronically Signed Out By: Miryam Wagner PhD [facility] Clinical History Gastrointestinal Tract (Biliary Tract) Left Hepatic Duct Brushing [facility] Gross Description Biliary Newton [facility] Results\Interp retation TEST - [id number] Assay INDICATION FOR TEST: Gastrointestinal Tract (Biliary Tract) Left Hepatic Duct Brushing SPECIMEN(S) TESTED: Biliary Newton ([facility], [place], [place], [place]) RESULTS: Targeted DNA next generation sequencing (NGS) using Anchored Multiplex PCR (AMP) detected no reportable variants. Copy Number Variants: Not validated for biliary brush specimens. Tumor Mutation Harrod: Not validated for biliary brush specimens. INTERPRETATION: [...] number detection in genomic DNA using the HealthEquity platform and [employer] next generation sequencing (NGS). Briefly, a board-certified molecular pathologist performed microscopic review of routine H&E-stained sections using validated digital pathology or traditional microscopic workflows. The appropriate region(s) of interest were identified and circled, followed by tumor enrichment via macrodissection prior to nucleic acid extraction. The [employer]Equ[employer] VariantPlex Rowe Solid Tumor v2 protocol was used to target the coding sequence of genes listed below. Illumina NextSeq 2 x 150 base paired-end sequencing reads were demutiplexed to generate FASTQ files that were transferred to the [employer] Analysis pipeline for read alignment to the [...] FOXL2, FUBP1, GNA11, GNAQ, GNAS, H3F3A, H3F3B, UKNQ5W2C, VYEJ5D5V, HNF1A, HRAS, IDH1, IDH2, JAK1, JAK2, JAK3, KDM6A, KDR, KEAP1, KIT, KLF4, KMT2C, KMT2D (MLL2), KRAS, LZTR1, MAP2K1 (MEK1), MAP2K2 (MEK2), MAP3K1, MDM2, MDM4, MED12, MEN1, MET, MLH1, MPL, MRE11A, MSH2, MSH3, MSH6, MTOR, MUC16, MUTYH, MYC, MYCN, NBN, NF1, NF2, NKX2-1, NOTCH1, NOTCH2, NOTCH3, NOTCH4, NPM1, NRAS, NTRK1, NTRK2, NTRK3, PALB2, PBRM1, PDGFRA, PIK3CA, PIK3CB, PIK3R1, PLCB4, PMS2, POLD1, POLE, MFG7V8W, UUK5B5C, PRKD1, PTCH1, PTEN, PTPN11, RAD50, RAD51, RAD51B, RAD51C, RAD51D, RAD54L, RAF1, RB1, RET, RHOA, RICTOR, RNF43, ROS1, SDHA, SDHB, SDHC, SDHD, SETD2, SF3B1, SMAD2, SMAD4, SMARCA4, SMARCB1, SMO, SRC, SRSF2, STAG2, STK11, SUFU, TERT, TGFBR2, TP53, TP63, TRAF7, TSC1, TSC2, TSHR, U2AF1, VHL, XRCC2, XRCC3. M[employer]EE ANALYSIS PIPELINE VERSION: 7.4.2 M[employer]EE ANALYSIS WEB APPLICATION VERSION: 7.4.4 MATCHED ANNOTATION FROM NCBI AND EMBL-BIANCA (MRATHA) VERSION: 1.0 REFERENCES: Gopi et al. [place] Med 2014;20(12):1479-8 4. [PMID: [id number]] This test was developed, and its performance characteristics were determined by the [facility]. It has not [...] performed at the [facility], [facility], [address] [place] [address]. [facility] Slide-Block Description [id number], Part C [employer] Conversion Type (Conversion Source) 05/15/2025 05/16/2025 Geovani Sun MD PATHOLOGY ORDERABLES Edited Re sult - Final [address] [address] from Last 3 Months Insurance CARE MEDICARE REPLACEMENT Member Subscriber Plan / Payer (Ef fective 2019-Present) Name:Giovanna Ndiaye Relation to Subscriber:Self Name:Giovanna Ndiaye Payer ID:[id number] (NAIC) Group ID:[id number] Type:Medicare [address]: [address] [facility] ONE CARE MEDICARE REPLACEMENT MEDICARE REPLACEMENT MEDICARE REPLACEMENT MEDICARE REPLACEMENT ONE CARE MEDICARE REPLACEMENT RICKEY OLSEN [id number] Care Teams [employer] Librarian Relationship Specialty Start Date End Date Peyman Dunn MD [address] [place] [phone] PCP - General Internal Medicine 03/06/24 Additional Source Comments The information contained in this document represents components of the legal health record. It is not the complete legal health record.[facility]
--- OUTSIDE RECORDS SUMMARY | 2025-08-03 12:28 | XMS_ITS | Patient Health Record ---
Author Organization [facility] Address [address] [place] [address] Care Team Providers Care Manager Environmental Services Name Role Phone Po Peyman VILLA Primary Care Provider Arturo Nelson Unavailable [phone] Nivia Hidalgo Unavailable Unavailable Reason For Referral No Information Plan Of Treatment No Information Insurance Providers Payer Name Payer Address Payer Phone Subscriber Number Group Number Insured Name Patient Relationship to Insured Coverage Start Date Coverage End Date [facility] [address] [place] [address] [id number] GIOVANNA BUTLER Self - patient is the insured
--- OUTSIDE RECORDS SUMMARY | 2025-08-03 12:28 | XMS_ITS | Encounter Summary ---
Author Organization [facility] Address [address] [place] [address] [place] [address] Phone Care Team Providers Care Thermostat Mechanic Name Role Phone Peyman Dunn MD Primary Care Provider [phone] Encounter Details Date Type Department Care Team (Late st Contact Info) Description 05/02/[address] [facility] [address] [facility], 5th [place] [address] Margie Multani RN [address] [place] [address] [email or web address]. du Social History Tobacco Use Types Packs/Day [...] st Contact Info) Description 06/22/[address] [facility] Cardiac US [address] [place] [address] 08/06/2025 10:00 AM EST Office Visit [address], 5t Floor, [address] [place] [address] Diana Flores MD [address] [place] [address] 504 [place] [address] [email or web address] 08/06/2025 1:40 PM EST Appointment [facility] Nuclear Cardiology [address] [place] [address] Faustino Dozier MD [address] [address] [email or web address] 08/14/2025 9:00 AM EST Telemedicine [facility] [address] [place] [address], 5th [place] [address] Merari Ruiz MD [address] [facility] [place] [address] Ravi@[email or web address] 08/20/2025 12:30 PM EST [facility] [address] [facility] 3rd [place] [address] Oscar Goyal MD, PhD [address] [place] [address] [email or web address] 08/28/2025 9:30 AM EST Office Visit Transplant Psychiatry [place] [address] 55 [facility], [address]th [place] [address] Funmilayo Bustos MD [address] [place] [phone] [email or web address] 08/28/2025 2:00 PM EST Appointment [facility] Cardiac [address] [address] Faustino Dozier MD [address] [address] [email or web address] documented as of this encounter Visit Diagnoses Not on filedocumented in this encounter Care Teams Thermostat Mechanic Relationship Specialty Start Date End Date Shaun, Peyman Giles MD [address] [place] [phone] PCP - General Internal Medicine 03/06/24 documented as of this encounter Additional Source Comments The information contained in this document represents components of the legal health record. It is not the complete legal health record.[facility]
--- OUTSIDE RECORDS SUMMARY | 2025-08-03 12:28 | XMS_ITS | Encounter Summary ---
Author Organization [facility] Address [address] [facility] [address] [place] [address] Phone Care Team Providers Care Tool Maintenance Worker Name Role Phone Peyman Dunn MD Primary Care Provider [phone] Encounter Details Date Type Department Care Team (Late st Contact Info) Description 07/04/2024 Procedure Pass MRI, [facility] - [address], [address] [place] [phone] Social History Tobacco Use Types Packs/Day Years [...] st Contact Info) Description 06/22/2025 Procedure Pass [facility] [place] [place] 55 [place] [address] 08/06/2025 10:00 AM EST Office Visit [facility] [address] [facility], 5t Floor, [address] [place] [address] Diana Flores MD [address] [facility] [address] [place] [address] FARIDEH@[email or web address] 08/06/2025 1:40 PM EST Appointment [facility] Nuclear Cardiology [address] [place] [address] Faustino Dozier MD [address] [address] WALT@[email or web address] 08/14/2025 9:00 AM EST Telemedicine [facility] [address] [facility], 5th [place] [address] Merari Ruiz MD [address] [place] [address] [place] [address] Ravi@[facility] 08/20/2025 12:30 PM EST Office Visit [facility] [address] [facility] 3rd [place] [address] Oscar Goyal MD, PhD 243 [place] [address] Morena@[email or web address] 08/28/2025 9:30 AM EST Office Visit Transplant Psychiatry [place] 6 [address] [facility], 6th [place] [address] Funmilayo Bustos MD [address] [facility] [address] [place] [phone] OTONIEL@[email or web address] 08/28/2025 2:00 PM EST Appointment [facility] [place] [place] [address] [place] [address] Faustino Dozier MD [address] [address] WALT@[facility] documented as of this encounter Visit Diagnoses Not on filedocumented in this encounter Care Teams Tool Maintenance Worker Relationship Specialty Start Date End Date Po, Peyman Giles MD [address] [place] [address] PCP - General Internal Medicine 03/06/24 documented as of this encounter Additional Source Comments The information contained in this document represents components of the legal health record. It is not the complete legal health record.[facility]
--- OUTSIDE RECORDS SUMMARY | 2025-08-03 12:28 | XMS_ITS | Encounter Summary ---
Author Organization [facility] Address [address] [place] [address] [place] [address] Phone Care Team Providers Care Director Of Reimbursement Name Role Phone Peyman Dunn MD Primary Care Provider [phone] Encounter Details Date Type Department Care Team (Late st Contact Info) Description 04/05/2025 Telephone [facility] 55 [facility], 5th [place] [address] Margie Multani RN [address] [place] [address] [email or web address]. du Social History Tobacco Use Types Packs/Day [...] Contact Info) Description 06/22/2025 Procedure Pass [facility] Card[facility] US 55 [place] [address] 08/06/2025 10:00 AM EST Office Visit [facility] [address] [facility], 5t Floor, [address] [place] [address] Diana Flores MD [address] [place] [address] [address] [place] [address] FARIDEH@[facility] 08/06/2025 1:40 PM EST Appointment [facility] Nuclear Cardiology [address] [place] [address] Faustino Dozier MD [address] [address] WALT@[facility] 08/14/2025 9:00 AM EST Telemedicine [facility] [address] [place] [address], 5th [place] [address] Merari Ruiz MD [address] [place] [address] [place] [address] Rvai@[facility] 08/20/2025 12:30 PM EST Office Visit [facility] 243 [facility] 3rd [place] [address] Oscar Goyal MD, PhD [address] [place] [address] Morena@[email or web address] 08/28/2025 9:30 AM EST Office Visit Transplant Psychiatry [place] 6 55 [facility] 6th [place] [address] Funmilayo Bustos MD [address] [place] [address] 605 [place] [address] OTONIEL@[facility] 08/28/2025 2:00 PM EST Appointment [facility] US [address] [place] [address] Faustino Dozier MD [address] [address] WALT@[email or web address] documented as of this encounter Visit Diagnoses Not on filedocumented in this encounter Care Teams Director Of Reimbursement Relationship Specialty Start Date End Date Po, Peyman Giles MD 2 [facility] [address] [place] [phone] PCP - General Internal Medicine 03/06/24 documented as of this encounter Additional Source Comments The information contained in this document represents components of the legal health record. It is not the complete legal health record.[facility]
--- OUTSIDE RECORDS SUMMARY | 2025-08-03 12:28 | XMS_ITS | Encounter Summary ---
Author Organization [facility] Address [address] [phone] [place] [address] Phone Care Team Providers Care Campus Security Director Name Role Phone Peyman Dunn MD Primary Care Provider Reason for Visit * Reason Onset Date Comments Appointment 08/02/2025 Encounter Details Date Type Department Care Team (Late st Contact Info) Description 08/02/2025 Telephone [facility] [address] [place] [address] Kamini Wayne [address] [place] [address] [email or web address] Appointment Social History Tobacco Use Types Packs/Day Years [...] as of this encounter Progress Notes * Kamini Wayne - 08/02/2025 12:48 PM EST Placed call to patient to review upcoming scheduled visits at [facility]. Monday 08/06 ID from 10:00 am - 11:00 am in [place] 5 MIBI from 1:25 pm - 2:45 pm in [place] 5 Tuesday 08/28 Psych from 9:30 am - 11:00 am in [place] 6 TTE from 1:45 pm - 3:00 pm in [place] 2 Kamini Wayne documented in this encounter Plan of Treatment Upcoming Encounters Date Type Department Care Team (Late st Contact Info) Description 06/22/2025 Procedure Pass [facility] US 55 [place] [address] 08/06/2025 10:00 AM EST Office Visit [facility] [address] [facility], 5t Floor, [address] [place] [address] Diana Flores MD 55 [facility] 504 [place] [address] FARIDEH@[email or web address] 08/06/2025 1:40 PM EST Appointment [facility] Cardiology 55 [place] [address] Faustino Dozier MD [address] [place] [address] WALT@[facility] 08/14/2025 9:00 AM EST Telemedicine [facility] [address] [place] [address], 5th [place] [address] Merari Ruiz MD [address] [place], [place] [address] [place] [address] Ravi@[facility] 08/20/2025 12:30 PM EST Office Visit [address] 3rd [place] [address] Oscar Goyal MD, PhD [address] [place] [address] Morena@[facility] 08/28/2025 9:30 AM EST Office Visit Transplant Psychiatry [place] 6 55 [facility], 6th [place] [address] Funmilayo Bustos MD [address] [place] [address] [place] [phone] OTONIEL@[facility] 08/28/2025 2:00 PM EST Appointment [facility] [address] [place] [address] Faustino Dozier MD [address] [place] [address] WALT@[facility] documented as of this encounter Visit Diagnoses Not on filedocumented in this encounter Care Teams Campus Security Director Relationship Specialty Start Date End Date Shaun, Peyman Giles MD [address] [facility] [address] [place] [phone] PCP - General Internal Medicine 03/06/24 documented as of this encounter Additional Source Comments The information contained in this document represents components of the legal health record. It is not the complete legal health record.[facility]
--- OUTSIDE RECORDS SUMMARY | 2025-08-03 12:28 | XMS_ITS | Encounter Summary ---
Author Organization [facility] Address [address] [place] [address] [place] [address] Phone Care Team Providers Care Voltmeter Operator Name Role Phone Peyman Dunn MD Primary Care Provider [phone] Encounter Details Date Type Department Care Team (Late st Contact Info) Description 04/05/2025 Telephone [facility] 55 [facility], 5th [place] [address] Margie Multani RN 273 [place] [address] [email or web address]. du Social History Tobacco Use Types Packs/Day [...] st Contact Info) Description 06/22/2025 Procedure Pass [facility] US 55 [place] [address] 08/06/2025 10:00 AM EST Office Visit [facility] 55 [facility], 5t Floor, [address] [place] [address] Diana Flores MD [address] [place] [address] [address] [place] [address] FARIDEH@[facility] 08/06/2025 1:40 PM EST Appointment [facility] Nuclear Cardiology [address] [place] [address] Faustino Dozier MD [address] [address] WALT@[facility] 08/14/2025 9:00 AM EST Telemedicine [facility] [address] [place] [address], 5th [place] [address] Merari Ruiz MD [address] [place] [address] [place] [address] Ravi@[facility] 08/20/2025 12:30 PM EST Office Visit [facility] [address] [facility] 3rd [place] [address] Oscar Goyal MD, PhD 243 [place] [address] Morena@[facility] 08/28/2025 9:30 AM EST Office Visit Transplant Psychiatry [place] 6 55 [facility], 6th [place] [address] Funmilayo Bustos MD [address] [place] [address] 605 [place] [address] OTONIEL@[facility] 08/28/2025 2:00 PM EST Appointment [facility] [address] [place] [address] Faustino Dozier MD [address] [address] WALT@[facility] documented as of this encounter Visit Diagnoses Not on filedocumented in this encounter Care Teams Voltmeter Operator Relationship Specialty Start Date End Date Po, Peyman Giles MD 2 [facility] [address] [place] [phone] PCP - General Internal Medicine 03/06/24 documented as of this encounter Additional Source Comments The information contained in this document represents components of the legal health record. It is not the complete legal health record.[facility]
--- OUTSIDE RECORDS SUMMARY | 2025-08-03 12:28 | XMS_ITS | Data Portability ---
Author Organization [place] - [facility], Allergy Address [address] [place] [address] Care Team Providers Care Computerized Mill Mill Recorder Name Role Phone SERGIOSHERI Primary Care Provider [...] tube and have him follow-up with physician title assistant in 6 months. Not available 07/10/2024 11:30:21 01/08/2025 01/08/2025 49-year-old male with extensive history of ETD presents for reevaluation. On examination the right drum remains scarred but with well aerated middle ear space. No retraction or over insufflation. Left tube remains in place and patent. Continue observation and follow-up in 6 months. Not available 01/08/2025 11:36:41 07/10/2025 07/10/2025 49 [...] and Address Organization Details Recorded Time Otorrhea [id number] Completed 201304/28/2024 Otorrhea ; Note: Date Diagnose d: 4 3:36 PM (388.60) Not Available [facility] 4 02:20:10 Abnormal granulat ion tissue 86264730 Completed 201304/28/2024 Other abnormal granulat ion tissue; Note: Date Diagnose d: 4 3:36 PM (701.5) Not Available [facility] 4 02:19:39 Conducti ve hearing loss, bilatera l 920371729 Active 2014 Conducti ve HL, bilatera l; Note: Date Diagnose d: 5 9:19 AM (389.06) Not Available [facility] 4 02:19:31 Conducti ve hearing loss 92753084 Active 2015 Conducti ve hearing loss, unilater al, right ear, with unrestri cted hearing on the contrala teral side; Note: Date Diagnose d: 6 4:27 PM (H90.11) Not Available [facility] 4 02:20:11 Bilatera l disorder of Eustachi an tubes 20145494646 21387 Active 2015 Other specifie d disorder s of Eustachi an tube, bilatera l; Note: Date Diagnose d: 6 3:50 PM (H69.83) RICKEY CHANG [address] [place] [address], [facility] [place], [address] , [facility] - [facility] 5 22:37:32 Sensorin eural hearing loss 17918147 Active 2015 Sensorin eural hearing loss, unilater al, left ear, with unrestri cted hearing on the contrala teral side; Note: Date Diagnose d: 6 3:50 PM (H90.42) Not Available [facility] 4 02:19:20 Chronic serous otitis media of right ear 459238133 Active 2016 Chronic serous otitis media, right ear; Note: Changed from H65.01 to H65.21 (10/20/19 19 10:45 AM) , Date Diagnose d: 7 3:35 PM (H65.01) Not Available [facility] 4 02:19:22 Marginal perforat ion of tympanic membrane 08897871 Completed 201804/28/2024 Other marginal perforat ions of tympanic membrane , left ear; Note: Date Diagnose d: 9 3:56 PM (H72.2X2 ) Not Available [facility] 4 02:19:34 Mixed conducti ve and sensorin eural hearing loss, bilatera l 436019032 Active 2018 Mixed conducti ve and sensorin eural hearing loss, bilatera l; Note: Date Diagnose d: 9 10:40 AM (H90.6) Not Available [facility] 4 02:19:40 Impacted cerumen in right ear 80544671305 47903 Active 2018 Impacted cerumen, right ear; Note: Date Diagnose d: 07/12/20 19 1:19 PM (H61.21) Not Available [facility] 4 02:20:05 Abnormal auditory percepti on 87969783 Active 2019 Other abnormal auditory percepti ons, bilatera l; Note: Date Diagnose d: 0 1:35 PM (H93.293 ) Not Available [facility] 4 02:19:45 Acute myringit is of left ear 79619849950 25632 Active 2019 Acute myringit is, left ear; Note: Date Diagnose d: 0 9:33 AM (H73.002 ) Not Available [facility] 4 02:19:45 Chronic mucoid otitis media of left middle ear 73089336168 67837 Active 2019 Chronic mucoid otitis media, left ear; Note: Date Diagnose d: 0 9:04 AM (H65.32) Not Available [facility] 4 02:19:17 Chronic left myringit is 69515796603 05884 Completed 201904/28/2024 Chronic myringit is, left ear; Note: Date Diagnose d: 07/11/20 20 9:44 AM (H73.12) Not Available [facility] 4 02:20:02 Otorrhea of left ear 34266101179 90987 Active 2019 Otorrhea , left ear; Note: Date Diagnose d: 07/11/20 20 9:45 AM (H92.12) Not Available [facility] 4 02:20:06 Obstruct jeff sleep apnea syndrome 58981109 Active 2021 Obstruct jeff sleep apnea (adult) (pediatr ic); Note: Date Diagnose d: 2 2:19 PM (G47.33) Not Available [facility] 4 02:19:44 Mixed conducti ve and sensorin eural hearing loss of left ear 69367257314 107 Active 2021 Mixed conducti ve and [...] Sensorin eural hearing loss in right ear 42205068855 100 Active 2021 Sensorin eural hearing loss, unilater al, right ear, with restrict ed hearing on the contrala teral side; Note: Date Diagnose d: 2 2:22 PM (H90.A21 ) Not Available [facility] 4 02:19:55 Problem Notes None [...] mg tablet 07/10 completed Medicati on ID: [id number] D uration Value: 30 Brand Name: warfarin [...] topical cream 07/11 completed Medicati on ID: [id number] D uration Value: 1 Brand Name: permethr in Send Method: E-Prescr ibed Sub s Allowed: subs OK Speci al Instruct ion: SERGIO FROM HEAD TO TOE AND RINSE AFTER 12 H UTD [facility] ED nericNam e: permethr in Not Available Not [...] mg tablet 06/17 completed Medicati on ID: [id number] B rand Name: hydromor phone Se nd Method: E-Prescr ibed Sub s Allowed: subs OK Medic ationGen ericName : hydromor phone Not Available Not Available Not Available potassium chloride ER 20 mEq tablet,ex tended release(p art/cryst ) TAKE 1 TABLET BY MOUTH TWICE DAILY active Not Available Not Available No t Available Lovenox 100 mg/mL subcutane ous syringe 06/17 completed Medicati on ID: [id number] B rand Name: Lovenox Send Method: E-Prescr ibed Sub s Allowed: subs OK Medic ationGen ericName : Lovenox Not Available Not Available Not Available ascorbic acid (vitamin C) 500 mg tablet TAKE 1 TABLET BY MOUTH DAILY active Not Available Not Available No t Available Cartia XT 120 mg capsule,e xtended release 06/17 completed Medicati on ID: [id number] D uration Value: 30 Brand Name: Cartia [...] mg tablet 07/11 completed Medicati on ID: [id number] D uration Value: 30 Brand Name: warfarin [...] mg tablet 07/11 completed Medicati on ID: [id number] D uration Value: 30 Brand Name: oxcarbaz [...] layed release 06/17 completed Medicati on ID: [id number] D uration Value: 30 Brand Name: bisacody l Send Method: E-Prescr ibed Sub s Allowed: subs OK Speci al Instruct ion: TK 1 T PO BID PRN Medi cationGe nericNam e: bisacody l Not Available Not Available Not Available mirtazapi ne 15 mg tablet 10/20 completed Medicati on ID: [id number] D uration Value: 30 Reason: () Brand [...] mg tablet 10/20 completed Medicati on ID: [id number] D uration Value: 30 Reason: () Brand Name: topirama te Send Method: E-Prescr ibed Sub s Allowed: subs OK Speci al Instruct ion: TK 1 T PO BID Medi cationGe nericNam e: topirama te Not Available Not Available Not Available multivita min capsule active Medicati on ID: [id number] B rand Name: multivit green Sen d Method: E-Prescr ibed Sub s Allowed: subs OK Medic ationGen ericName : multivit green Not Available Not Available Not Available sertralin e 50 mg tablet 07/10 completed Medicati on ID: [id number] B rand Name: sertrali ne Send Method: E-Prescr ibed Sub s Allowed: subs OK Medic ationGen ericName : sertrali ne Not Available Not Available Not Available naproxen 500 mg tablet TAKE 1 TABLET BY MOUTH TWICE DAILY 01/08 completed Not Available Not Available Not Available Vitamin B-12 1,000 mcg tablet active Medicati on ID: [id number] B rand Name: Vitamin B-12 Sen d [...] drops,manan p 12/11 completed Medicati on ID: [id number] Pr escribed By Name: EMELIA Gipson nd Name: neomycin -polymyx in-HC Se nd Method: E-Prescr ibed Sub s Allowed: subs OK Speci al Instruct ion: 4 drops left ear BID X 14 days Med icationG enericNa me: neomycin -polymyx in-HC Not Available Not Available Not Available TobraDex 0.3 %-0.1 % eye drops,manan pension 07/10 completed Medicati on ID: [id number] D uration Value: 10 Prescri bed By [...] sustained -release 10/20 completed Medicati on ID: [id number] D uration Value: 30 Reason: () Brand [...] right ear 07/10 completed Medicati on ID: [id number] D uration Value: 7 Prescri bed By [...] aerosol inhaler 07/11 completed Medicati on ID: [id number] D uration Value: 16 Brand Name: ProAir [...] unit) tablet 07/10 completed Medicati on ID: [id number] B rand Name: cholecal ciferol (vitamin D3) Send Method: E-Prescr ibed Sub s Allowed: subs OK [facility] cholecal ciferol (vitamin D3) Not Available Not Available Not Available Eliquis 5 mg tablet TAKE 1 TABLET BY MOUTH TWICE DAILY active Not Available Not Available No t Available potassium chloride ER 20 mEq tablet,ex tended release 07/11 completed Medicati on ID: [id number] D uration Value: 30 Brand Name: gracia mcpherson chloride Send Method: E-Prescr ibed Sub s Allowed: subs OK Speci al Instruct ion: TK 1 T PO QD Medic [facility] ericName : nestoru ky chloride Not Available Not Available Not Available Vitals Date Recorded Body height Body mass index (BMI) Body weight Provider Name and Address Organization Details Last Updated DateTime 01/08/2025 172.72 cm 27.4 kg/m2 70311.63 g Abby Shona [facility] 01/08/2025 11:00:09 Date Recorded Body height Body mass index (BMI) Body weight Provider Name and Address Organization Details Last Updated DateTime 07/10/2025 172.72 cm 27.4 kg/m2 65874.63 g Nikia Oconnor [facility] 07/10/2025 10:42:35 Social History None recorded. Functional Status None recorded. Mental Status None recorded. Family History Nothing Reported. Medical History Condition Response Diabetes Y Arthritis Y Stroke Y Hypertension Y Past Encounters Encounter ID Performer Location Encounter Start Date Encounter Closed Date Diagnosis/Indication Diagnosis SNOMED-CT Code Diagnosis ICD10 Code Diagnosis IMO Codes Diagnosis Note [id number] TOMER CUNNINGHAM MD [facility] [address] [address] 07/10/2024 09:41:31 07/10/2024 11:29:44 Bilateral disorder of Eustachian tubes 0805051820 188401 H69.83 [id number] ARDEN SILVA PA-C [facility] [address] [place] [address] 01/08/2025 10:53:21 01/08/2025 11:10:01 Bilateral disorder of Eustachian tubes 2247434420 491446 H69.83 [id number] RICKEY CHANG [facility] [address] [place] [address] 07/10/2025 10:37:15 07/10/2025 11:13:54 Bilateral disorder of Eustachian tubes 8693426310 047960 H69.83 Health Concerns Section Related Observation LastModified by Organization Detai ls LastModified Time None Recorded Concern Status LastModified by Organization Details LastModified Time None Recorded Advance Directives Directive None Recorded Payers Insurance Date Sequence Insurance Name Policy Number Policy Fajardo Covered Member ID Fajardo Member ID Guarantor Name 01/01/2025 1 [facility] - DOS ON OR AFTER 2022 - MEDICARE ADVANTAGE [place] ([place]ICARE REPLACEMENT/ADV ANTAGE - PPO) Kailash Ndiaye [id number] Kailash Ndiaye 07/07/2025 1 [facility] - DOS ON OR AFTER 2022 - ONE CARE (MEDICARE REPLACEMENT/ADV ANTAGE - HMO) Kailash Ndiaye [id number] Kailash Ndiaye Notes Date Note Type Note [...] been feeling much better. TOMER CUNNINGHAM MD [address] [place] [address], [phone], [facility] - [facility] 07/10/2024 11:30:57 01/08/2025 text/html ROS as [...] frequently. Hearing stable. TOMER CUNNINGHAM MD [address] [facility],[address], [address], [facility] - [facility] 01/09/2025 16:38:34 07/10/2025 text/html ROS as noted in the [facility] 49 year old male, with a longstanding [...] gotten slightly worse. TOMER CUNNINGHAM MD [address] [facility],[address], [address], [facility] - [facility] 07/11/2025 07:29:41
--- OUTSIDE RECORDS SUMMARY | 2025-08-03 12:28 | XMS_ITS | Encounter Summary ---
Author Organization [facility] Address [address] [place] [address] Phone Care Team Providers Care Bird Cage Assembler Name Role Phone Peyman Dunn MD Primary Care Provider [phone] Encounter Details Date Type Department Care Team (Late st Contact Info) Description 04/12/2025 Procedure [place] [facility] MOE 4 ENDO DEPT [address] [facility], 4th [place] [address] Social History Tobacco Use Types Packs/Day Years [...] st Contact Info) Description 06/22/2025 Procedure [place] [facility] Cardiac US [address] [place] [address] 08/06/2025 10:00 AM EST Office Visit [facility] [address] [facility], 5t Floor, [address] [place] [address] Diana Flores MD [address] [place] [phone] [email or web address] 08/06/2025 1:40 PM EST Appointment [place] [facility] Nuclear Cardiology [address] [place] [address] Faustino Dozier MD [address] [address] [email or web address] 08/14/2025 9:00 AM EST Telemedicine [place] [facility] [address] [facility], 5th [place] [address] Merari Ruiz MD [address] [place], [place] [address] [address] [email or web address]. [facility] 08/20/2025 12:30 PM EST Office Visit [facility] [address] [facility] 3rd [place] [address] Oscar Goyal MD, PhD [address] [place] [address] [email or web address] 08/28/2025 9:30 AM EST Office Visit [facility] Jairon 6 55 [facility], 6th [place] [address] Funmilayo Bustos MD 55 [facility] [address] [place] [phone] [email or web address] 08/28/2025 2:00 PM EST Appointment [place] [facility] Cardiac 55 [place] [address] Faustino Dozier MD [address] [facility] [address] [place] [address] [email or web address] documented as of this encounter Visit Diagnoses Not on filedocumented in this encounter Care Teams Bird Cage Assembler Relationship Specialty Start Date End Date Po, Peyman Giles MD [address] [place] [phone] PCP - General Internal Medicine 03/06/24 documented as of this encounter Additional Source Comments The information contained in this document represents components of the legal health record. It is not the complete legal health record.[facility]
--- OUTSIDE RECORDS SUMMARY | 2025-08-03 12:28 | XMS_ITS | Encounter Summary ---
Author Organization [facility] Address [address] [place] [phone] Phone Care Team Providers Care Display Department Manager Name Role Phone Peyman Dunn MD Primary Care Provider Encounter Details Date Type Department Care Team (Late st Contact Info) Description 05/15/2025 Procedure Pass [facility] MOE 4 ENDO DEPT [address] [facility], 4th [place] [address] Social History Tobacco Use Types Packs/Day Years [...] st Contact Info) Description 06/22/2025 Procedure Pass [place] [facility] US [address] [place] [phone] 08/06/2025 10:00 AM EST Office Visit [facility] [address] [facility], 5t Floor, [address] [place] [address] Diana Flores MD [address] [place] [address] [email or web address] 08/06/2025 1:40 PM EST Appointment [place] Nuclear [facility]iology [address] [place] [address] Faustino Dozier MD [address] [address] [email or web address] 08/14/2025 9:00 AM EST Telemedicine [facility] [address] [facility], 5th [place] [address] Merari Ruiz MD [address] [place], [place] [address] [place] [address] [email or web address] 08/20/2025 12:30 PM EST Office Visit [facility] [address] [facility] 3rd [place] [address] Oscar Goyal MD, PhD [address] [place] [address] [email or web address] 08/28/2025 9:30 AM EST Office Visit Transplant Psychiatry Jairon 6 55 [facility], 6th [place] [address] Funmilayo Bustos MD 55 [facility] [address] [place] [phone] [email or web address] 08/28/2025 2:00 PM EST Appointment [facility] [address] [place] [address] Faustino Dozier MD 15 [facility] 5 [place] [address] [email or web address] documented as of this encounter Visit Diagnoses Not on filedocumented in this encounter Care Teams Display Department Manager Relationship Specialty Start Date End Date Po, Peyman Giles MD [address] [facility] [place] [phone] PCP - General Internal Medicine 03/06/24 documented as of this encounter Additional Source Comments The information contained in this document represents components of the legal health record. It is not the complete legal health record.[facility]
--- OUTSIDE RECORDS SUMMARY | 2025-08-03 12:28 | XMS_ITS | Continuity of Care Document ---
Author Organization [place] - [facility], [facility] Address [address] [place] [phone] Care Team Providers Care Copper Plate Lithographer Name Role Phone SERGIOSHERI Primary Care Provider [phone] Assessment Encounter Date Assessment Date Assessment LastModified by Organization Details LastModified Time 07/10/2025 07/10/2025 49 year old male, with [...] Last Modified Time Details Appointments FOLLOW UP 2025 10:00A M Hearing Test Not available [...] and Address Organization Details Recorded Time Otorrhea [id number] Completed 201304/28/2024 Otorrhea ; Note: Date Diagnose d: 4 3:36 PM (388.60) Not Available [facility] 4 02:20:10 Abnormal granulat ion tissue [id number] Completed 201304/28/2024 Other abnormal granulat ion tissue; Note: Date Diagnose d: 4 3:36 PM (701.5) Not Available [facility] 4 02:19:39 Conducti ve hearing loss, bilatera l 441509876 Active 2014 Conducti ve HL, bilatera l; Note: Date Diagnose d: 5 9:19 AM (389.06) Not Available [facility] 4 02:19:31 Conducti ve hearing loss 60985374 Active 2015 Conducti ve hearing loss, unilater al, right ear, with unrestri cted hearing on the contrala teral side; Note: Date Diagnose d: 6 4:27 PM (H90.11) Not Available [facility] 4 02:20:11 Bilatera l disorder of Eustachi an tubes 40898877330 05018 Active 2015 Other specifie d disorder s of Eustachi an tube, bilatera l; Note: Date Diagnose d: 6 3:50 PM (H69.83) RICKEY CHANG [address] [place] [address], [place], [address] , [facility] - [facility] 5 22:37:32 Sensorin eural hearing loss 90614323 Active 2015 Sensorin eural hearing loss, unilater al, left ear, with unrestri cted hearing on the contrala teral side; Note: Date Diagnose d: 6 3:50 PM (H90.42) Not Available [facility] 4 02:19:20 Chronic serous otitis media of right ear 366476266 Active 2016 Chronic serous otitis media, right ear; Note: Changed from H65.01 to H65.21 (10/20/19 19 10:45 AM) , Date Diagnose d: 7 3:35 PM (H65.01) Not Available [facility] 4 02:19:22 Marginal perforat ion of tympanic membrane 96545101 Completed 201804/28/2024 Other marginal perforat ions of tympanic membrane , left ear; Note: Date Diagnose d: 9 3:56 PM (H72.2X2 ) Not Available [facility] 4 02:19:34 Mixed conducti ve and sensorin eural hearing loss, bilatera l 952642416 Active 2018 Mixed conducti ve and sensorin eural hearing loss, bilatera l; Note: Date Diagnose d: 9 10:40 AM (H90.6) Not Available [facility] 4 02:19:40 Impacted cerumen in right ear 23083803033 47327 Active 2018 Impacted cerumen, right ear; Note: Date Diagnose d: 07/12/20 19 1:19 PM (H61.21) Not Available [facility] 4 02:20:05 Abnormal auditory percepti on 71467144 Active 2019 Other abnormal auditory percepti ons, bilatera l; Note: Date Diagnose d: 0 1:35 PM (H93.293 ) Not Available [facility] 4 02:19:45 Acute myringit is of left ear 30130600225 07876 Active 2019 Acute myringit is, left ear; Note: Date Diagnose d: 0 9:33 AM (H73.002 ) Not Available [facility] 4 02:19:45 Chronic mucoid otitis media of left middle ear 79196529016 60989 Active 2019 Chronic mucoid otitis media, left ear; Note: Date Diagnose d: 0 9:04 AM (H65.32) Not Available [facility] 4 02:19:17 Chronic left myringit is 50389189156 65637 Completed 201904/28/2024 Chronic myringit is, left ear; Note: Date Diagnose d: 07/11/20 20 9:44 AM (H73.12) Not Available [facility] 4 02:20:02 Otorrhea of left ear 72277679820 26367 Active 2019 Otorrhea , left ear; Note: Date Diagnose d: 07/11/20 20 9:45 AM (H92.12) Not Available [facility] 4 02:20:06 Obstruct jeff sleep apnea syndrome 24250139 Active 2021 Obstruct jeff sleep apnea (adult) (pediatr ic); Note: Date Diagnose d: 2 2:19 PM (G47.33) Not Available [facility] 4 02:19:44 Mixed conducti ve and sensorin eural hearing loss of left ear 52882081478 107 Active 2021 Mixed conducti ve and [...] 2 2:22 PM (H90.A32 ) Not Available [facility] 4 02:19:34 Sensorin eural hearing loss in right ear 19057721320 100 Active 2021 Sensorin eural hearing loss, unilater al, right ear, with restrict ed hearing on the contrala teral side; Note: Date Diagnose d: 2 2:22 PM (H90.A21 ) Not Available [facility] 4 02:19:55 Problem Notes None recorded. Medical [...] No t Available warfarin 7.5 mg tablet 08/29/ 2016 10/14 /2024 completed Medicati on ID: [id number] D uration Value: 30 Brand Name: warfarin [...] topical cream 07/11 completed Medicati on ID: [id number] D uration Value: 1 Brand Name: permethr in Send Method: E-Prescr ibed Sub s Allowed: subs OK Speci al Instruct ion: SERGIO FROM HEAD TO TOE AND RINSE AFTER 12 H UTD Medi cationGe nericNam e: permethr in Not Available Not [...] mg tablet 06/17 completed Medicati on ID: [id number] B rand Name: hydromor phone Se nd Method: E-Prescr ibed Sub s Allowed: subs OK Medic ationGen ericName : hydromor phone Not Available Not Available Not Available potassium chloride ER 20 mEq tablet,ex tended release(p art/cryst ) TAKE 1 TABLET BY MOUTH TWICE DAILY active Not Available Not Available No t Available Lovenox 100 mg/mL subcutane ous syringe 06/17 completed Medicati on ID: [id number] B rand Name: Lovenox Send Method: E-Prescr ibed Sub s Allowed: subs OK Medic ationGen ericName : Lovenox Not Available Not Available Not Available ascorbic acid (vitamin C) 500 mg tablet TAKE 1 TABLET BY MOUTH DAILY active Not Available Not Available No t Available Cartia XT 120 mg capsule,e xtended release 06/17 completed Medicati on ID: [id number] D uration Value: 30 Brand Name: Peter XT Send Method: E-Prescr ibed Sub s Allowed: subs OK Speci al Instruct ion: TK ONE C PO D Medica tionGene ricName: Chicaia XT Not Available Not Available Not Available [...] mg tablet 07/11 completed Medicati on ID: [id number] D uration Value: 30 Brand Name: warfarin [...] mg tablet 07/11 completed Medicati on ID: [id number] D uration Value: 30 Brand Name: oxcarbaz [...] layed release 06/17 completed Medicati on ID: [id number] D uration Value: 30 Brand Name: bisacody l Send Method: E-Prescr ibed Sub s Allowed: subs OK Speci al Instruct ion: TK 1 T PO BID PRN Medi cationGe nericNam e: bisacody l Not Available Not Available Not Available mirtazapi ne 15 mg tablet 10/20 completed Medicati on ID: [id number] D uration Value: 30 Reason: () Brand [...] mg tablet 10/20 completed Medicati on ID: [id number] D uration Value: 30 Reason: () Brand Name: topirama te Send Method: E-Prescr ibed Sub s Allowed: subs OK Speci al Instruct ion: TK 1 T PO BID Medi cationGe nericNam e: topirama te Not Available Not Available Not Available multivita min capsule active Medicati on ID: [id number] B rand Name: multivit green Sen d Method: E-Prescr ibed Sub s Allowed: subs OK Medic ationGen ericName : multivit green Not Available Not Available Not Available sertralin e 50 mg tablet 07/10 completed Medicati on ID: [id number] B rand Name: sertrali ne Send Method: E-Prescr ibed Sub s Allowed: subs OK Medic ationGen ericName : sertrali ne Not Available Not Available Not Available naproxen 500 mg tablet TAKE 1 TABLET BY MOUTH TWICE DAILY 01/08 completed Not Available Not Available Not Available Vitamin B-12 1,000 mcg tablet active Medicati on ID: [id number] B rand Name: Vitamin B-12 Sen d [...] drops,manan p 12/11 completed Medicati on ID: [id number] Pr escribed By Name: EMELIA Gipson nd Name: neomycin -polymyx in-HC Se nd Method: E-Prescr ibed Sub s Allowed: subs OK Speci al Instruct ion: 4 drops left ear BID X 14 days Med icationG enericNa me: neomycin -polymyx in-HC Not Available Not Available Not Available TobraDex 0.3 %-0.1 % eye drops,manan pension 07/10 completed Medicati on ID: [id number] D uration Value: 10 Prescri bed By [...] sustained -release 10/20 completed Medicati on ID: [id number] D uration Value: 30 Reason: () Brand [...] right ear 07/10 completed Medicati on ID: [id number] D uration Value: 7 Prescri bed By [...] aerosol inhaler 07/11 completed Medicati on ID: [id number] D uration Value: 16 Brand Name: ProAir [...] unit) tablet 07/10 completed Medicati on ID: [id number] B rand Name: cholecal ciferol (vitamin D3) Send Method: E-Prescr ibed Sub s Allowed: subs OK Medic ationGen ericName : cholecal ciferol (vitamin D3) Not Available Not Available Not Available Eliquis 5 mg tablet TAKE 1 TABLET BY MOUTH TWICE DAILY active Not Available Not Available No t Available potassium chloride ER 20 mEq tablet,ex tended release 07/11 completed Medicati on ID: [id number] D uration Value: 30 Brand Name: gracia mcpherson chloride Send Method: E-Prescr ibed Sub s Allowed: subs OK Speci al Instruct ion: TK 1 T PO QD Medic ationGen ericName : gracia mcpherson chloride Not Available Not Available Not Available Vitals Date Recorded Body height Body mass index (BMI) Body weight Provider Name and Address Organization Details Last Updated DateTime 07/10/2025 172.72 cm 27.4 kg/m2 44123.63 g Nikia Oconnor [place] - [facility] 07/10/2025 10:42:35 Social History None recorded. Functional Status None recorded. Mental Status None recorded. Family History Nothing Reported. Medical History Condition Response Diabetes Y Arthritis Y Stroke Y Hypertension Y Past Encounters Encounter ID Performer Location Encounter Start Date Encounter Closed Date Diagnosis/Indication Diagnosis SNOMED-CT Code Diagnosis ICD10 Code Diagnosis IMO Codes Diagnosis Note [id number] RICKEY CHANG [facility] [address] [phone] 07/10/2025 10:37:15 07/10/2025 11:13:54 Bilateral disorder of Eustachian tubes [id number] 246941 H69.83 Health Concerns Section Related Observation LastModified by Organization Detai ls LastModified Time None Recorded Concern Status LastModified by Organization Details LastModified Time None Recorded Payers Encounter Date Sequence Insurance Name Policy Number Policy Fajardo Covered Member ID Fajardo Member ID Guarantor Name 07/10/2025 1 [facility] - DOS ON OR AFTER 2022 - ONE CARE (MEDICARE REPLACEMENT/ADV ANTAGE - HMO) Kailash Ndiaye [id number] Kailash Ndiaye Notes Date Note Type Note Provider Name and Address Organization Details Recorded Time 07/10/2025 text/html ROS as noted in the HPI 49 year old male, with a longstanding [...] has gotten slightly worse. TOMER CUNNINGHAM MD [address] [place] [address], [place], [address], [facility] - [facility] 07/11/2025 07:29:41
--- OUTSIDE RECORDS SUMMARY | 2025-08-03 12:29 | XMS_ITS | Encounter Summary ---
Author Organization [facility] Address [address] [place] [address] Phone Care Team Providers Care Warehouse Associate Driver Name Role Phone Peyman Dunn MD Primary Care Provider [phone] Encounter Details Date Type Department Care Team (Latest Contact Info) Description 03/26/2025 Transcribe Orders [facility] [address] [place] [address], 5th [place] [address] Endoscopist, Next Available Total bilirubin, elevated (Primary [...] st Contact Info) Description 06/22/2025 Procedure Pass [facility] Cardiac US [address] [place] [address] 08/06/2025 10:00 AM EST Office Visit [facility] [address] [facility], 5t Floor, [address] [place] [address] Diana Flores MD [address] [place] [address] [address] [place] [address] [email or web address] 08/06/2025 1:40 PM EST Appointment [facility] Nuclear Cardiology [address] [place] [address] Faustino Dozier MD [address] [address] [email or web address] 08/14/2025 9:00 AM EST Telemedicine [facility] [address] [facility], 5th [place] [address] Merari Ruiz MD [address] [place] [address]-[address] [place] [address] [email or web address] 08/20/2025 12:30 PM EST Office Visit [facility] [address] [facility] 3rd [place] [address] Oscar Goyal MD, PhD [address] [place] [address] [email or web address] 08/28/2025 9:30 AM EST Office Visit [facility] [address] [facility], 6th [place] [address] Funmilayo Bustos MD [address] [place] [address] WRN [address] [place] [phone] [email or web address] 08/28/2025 2:00 PM EST Appointment [facility] Cardiac US [address] [place] [address] Faustino Dozier MD [address] [address] [email or web address] documented as of this encounter Visit Diagnoses Diagnosis Total bilirubin, elevated- Primary documented in this encounter Care Teams Warehouse Associate Driver Relationship Specialty Start Date End Date Po, Peyman Giles MD [address] [place] [phone] PCP - General Internal Medicine 03/06/24 documented as of this encounter Additional Source Comments The information contained in this document represents components of the legal health record. It is not the complete legal health record.[facility]
== END 2025-08-03 11:22 | disposition home or self-care (01) ==
LOC: HO.HMCH 10:33
PROVIDERS: PCP Internal Medicine; Visit Provider Internal Medicine
DX: E78.00 Pure hypercholesterolemia, unspecified (principal); Z86.718 Personal history of other venous thrombosis and embolism; K21.9 Gastro-esophageal reflux disease without esophagitis; K83.01 Primary sclerosing cholangitis; G25.0 Essential tremor; Z23 Encounter for immunization

== ENCOUNTER → 2025-08-03 10:33 | Outpatient (BNVA) | payer OTHER, SELFPAY | PROVIDERS: PCP Internal Medicine; Visit Provider Internal Medicine | DX: K21.9 Gastro-esophageal reflux disease without esophagitis (principal); E78.00 Pure hypercholesterolemia, unspecified; K83.01 Primary sclerosing cholangitis; G25.0 Essential tremor; R10.11 Right upper quadrant pain; R11.0 Nausea; J30.9 Allergic rhinitis, unspecified; Z23 Encounter for immunization; Z86.718 Personal history of other venous thrombosis and embolism | CPT/HCPCS: 90471; 90656; 96127; 99212 ==

== ENCOUNTER 2025-09-07 10:16 | Outpatient (AMB) | payer OTHER, SELFPAY ==
--- NOTE | 2025-09-07 10:28 | MHC.OFFVIS ---
Vital Signs 09/07/25 10:31 BP 110/68 Blood Pressure Location Lt brachial Position Sitting Pulse 60 Pulse Source Palpation Intake Visit Reasons: 3 months follow up Allergies azathioprine (From IMURAN) Allergy (Unknown, Verified 08/03/25 10:41) PANCREASE SWELLING infliximab (From REMICADE) Allergy (Unknown, Verified 08/03/25 10:41) DIFFICULTY BREATHING mannitol (Reclast) Allergy (Unknown, Verified 08/03/25 10:41) joint pain silver (From TEGADERM AG MESH) Allergy (Unknown, Verified 08/03/25 10:41) BLISTERS water for injection,sterile (Reclast) Allergy (Unknown, Verified 08/03/25 10:41) joint pain zoledronic acid (Reclast) Allergy (Unknown, Verified 08/03/25 10:41) joint pain HPI Comments Details: Kailash is a 49-year-old male patient with a past medical history of tremor, 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 He was last seen by Mariah FOSTER in April of 2025. At that time, his dose of propranolol was increased from 30 mg twice daily to 40 mg twice daily because he reported worsening tremor at that time. During our last office visit on 06/22/2025, he reported since increasing the propranolol to 40 mg twice daily and I seen any significant improvement in his tremor. His tremor was intermittent but affecting his day-to-day life including eating, drinking, bathing, dressing, grooming, and writing. He had tried topiramate in the past for his moods but he did not see any benefit with his tremor at that time. I did advise for low-dose gabapentin trial. He tells me today that unfortunately he did not have any benefit with the gabapentin. He started taking the propranolol again 40 mg twice daily. This however dropped his blood pressure. He was hospitalized recently at [facility] and had blood pressures in the 70s he was however found positive for E coli at the time and had an ERCP. His liver enzymes have since improved. He is now taking propranolol 20 mg twice daily and has seen some benefit with this dose and his tremor at current is not affecting his day-to-day. 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 Mother Osteoporosis Heart problem HTN (hypertension) Maternal Aunt Breast cancer Social History Household Members: None Housing: House Are you a primary pet care associate to a significant other at home: No Do you presently have visiting nurse or other home services: Yes Alcohol intake: current Alcohol intake frequency: does not drink Patient Tobacco Use Status: Former Tobacco user Tobacco use type: Cigarette e-Cigarette/Vaping Use: Never Used Second Hand Smoke Exposure: Yes Substance Use Type: Marijuana service: No Current occupational status: disabled Cognitive needs: No Hearing needs: No Vision needs: Yes (Glasses) Review of Systems Const All systems reviewed & are unremarkable except as noted in HPI and below Physical Exam Const General: cooperative, healthy appearing, comfortable and no acute distress Nutritional Appearance: well nourished Orientation/consciousness: patient oriented x3 Limitations: no limitations Eyes Other: Bilateral horizontal nystagmus Sclerae: scleral abnormal bilateral (Jaundice) Skin General skin exam: jaundice Neuro General: patient oriented x3, tone normal and deep tendon reflexes 2+ bilaterally Cranial nerves: Yes Facial sensation intact/muscles of mastication intact Cognition (Neuro): normal cognition Gait exam (Neuro): Normal gait present Motor exam (neuro): 5/5 motor strength present throughout and Tremors during motor activity present (Mild intermittent action tremor noted on exam) Sensory Exam: double simultaneous stimulation for sensation normal Romberg Test: Negative Psych Appearance: grossly normal Mental Status: mental status grossly normal Speech and movement: Normal speech and movement present and Clear speech present Affect: normal affect Attitude: cooperative Thought process: Normal thought process present Thought content: Normal thought content present Insight: Good insight present (Psych) Judgement: Good judgement present (Psych) Assessment & Plan Assessment & Plan (1) Essential tremor: Code(s): G25.0 - Essential tremor Category: Medical Plan Kailash is a 49-year-old male patient with a past medical history of tremor, 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 Unfortunately, he did not see any benefit with gabapentin and since stopped. He did go back to propranolol 40 mg twice daily but that the drop in blood pressure with his. He is now on propranolol 20 mg twice daily and seemingly has had some benefit with this. His tremor at current does not affecting day-to-day tasks. We will continue him on this dose for now and continue to monitor. -continue propranolol 20 mg twice daily (patient has a large supply at home and does not need refills at this time) -Gabapentin discontinued -follow up in 6 months or sooner if needed Medications: Discontinued gabapentin Take 1 capsule by mouth in the evening for 1 week and then can increase to one capsule by mouth twice daily. Discontinued Reason: Doctor's Order 100 mg PO BID 30 days 60 caps 4RF Coding Level of Care Code Est Pt Level 3 (14770) Diagnoses Essential tremor G25.0
[2025-09-07 10:31] VITALS: BP 110/68; PULSE 60
== END 2025-09-07 10:31 | disposition home or self-care (01) ==
LOC: HO.HSM 10:17
PROVIDERS: PCP Internal Medicine; Visit Provider Nurse Practitioner
DX: G25.0 Essential tremor (principal)
CPT/HCPCS: 99213

== ENCOUNTER → 2025-09-07 10:16 | Outpatient (BNVA) | payer OTHER, SELFPAY | PROVIDERS: PCP Internal Medicine; Visit Provider Nurse Practitioner | DX: G25.0 Essential tremor (principal); Z79.899 Other long term (current) drug therapy | CPT/HCPCS: 99212 ==